=== PATIENT | male | born 1960 | race Caucasian/White ===

== ENCOUNTER 2025-03-15 10:22 | Inpatient (IN) | payer MEDICAID, SELFPAY ==
[2025-03-15] VITALS (10 sets, daily range): BP systolic 105–138; BP diastolic 68–104; PULSE 82–115; RESP 18–23; TEMP 36.1–36.9; O2SAT 93–97; BMI 32.3; BMI 31.9
--- NOTE | 2025-03-15 10:24 | EDNOTE_ITS ---
ED SOB =RME/HPI General Chief Complaint: Shortness of Breath/Dyspnea Stated Complaint: sob Time Seen by Provider: 03/15/25 10:46 Arrival date/time: 03/15/25 10:22 RME / HPI RME / HPI Narrative: 65 y/o male with Hx of CHF presents to ED BIBA c/o shortness of breath and BL lower extremity edema x 2 days. Patient reports shortness of breath when laying down. Patient admits to taking LASIX, but has not taken it this morning. Denies any chest discomfort or pressure. Also denies any prior history of drug use, alcohol or smoking. No other modifying factors reported. No other concerns or complaints expressed at this time. Related Data Previous Rx's ?Medication ?Instructions ?Recorded carvedilol 3.125 mg tablet 3.125 mg PO BIDWM 30 days # 60 tabs 04/02/24 dapagliflozin propanediol 5 mg 5 mg PO QDAY #30 tabs 0 04/02/24 tablet (Farxiga) furosemide 40 mg tablet 40 mg PO QDAY #30 tabs 04/02 Allergies Allergy/AdvReac Type Severity Reaction Status Date / Time No Known Allergies Allergy Verified 03/15/25 10:29 Review of Systems Review of Systems Systems Reviewed: All systems reviewed, normal except as documented Narrative Review of Systems: Constitutional: DENIES; Fevers Eyes: DENIES; Loss of vision Head/Ear/Nose: DENIES; Loss of hearing Throat: DENIES; Dysphagia Cardiovascular: DENIES; Chest pain, dyspnea or syncope Respiratory: POSITIVE; Shortness of breath Gastrointestinal: DENIES; Rectal bleeding or melena. Genitourinary: DENIES; Dysuria (painful or difficult urination) Musculoskeletal: POSITIVE; BL LE edema, DENIES; Arthralgia (pain in a joint),; Skin: DENIES; Rash Neurological: DENIES; Loss of function or movement Psychiatric: DENIES; recent major life stressor, emotional problem, illicit drug use or abuse Endocrinology: DENIES; Weight change Hematologic/Lymphatic: DENIES; Abnormal bruising Allergic/Immunologic: DENIES; Urticaria (hives) Past Medical History Past Medical History CARDIAC: Positive Congestive Heart Failure PSYCHO/SOCIAL: Positive Recreational Drug Use (COCAINE) Social History SUBSTANCE USE: crack/cocaine ED Exam Narrative Physical exam: Physical Exam: General: The vital signs were reviewed. The patient is non-toxic, in no apparent distress and appears healthy with a patent airway, no respiratory distress and has no apparent circulatory problems. Head & Scalp: Normocephalic, atraumatic. Face: Appears normal and is without lesions, deformity. Ears: Left external pinna appears normal. Right external pinna appears normal. Eyes: The sclera is anicteric. No obvious photophobia. The Left and Right Orbit/Lid/Conjunctiva appears normal without swelling, discoloration or injection. Nose: The nose is without deformity, discharge or tenderness; Throat: Appears normal. The mucous membranes are pink and moist without exudates, redness or mass seen. The tongue appears normal. Neck: The neck is supple and no apparent mass or adenopathy. Chest: The chest wall is normal in size and symmetry and has no chest wall tenderness or crepitus. The patient displays normal ventilator effort without retractions, accessory muscle use and has adequate air movement bilaterally with no wheezes and no rales. Cardiovascular: Regular rate and rhythm; No murmurs, rubs, or gallops; Gastrointestinal: The abdomen appears normal. No obvious hernias or mass. The abdomen is soft and benign, non-distended, with no pain, no guarding and no rebound tenderness. Bowel sounds are present and normal sounding. No CVA tenderness. Genitourinary: Back/Spine: Normal spine Extremities/Musculoskeletal/lymphatic: Bilateral feet have redness swelling edema sores absent left second toe the bilateral upper and lower extremities are warm. There is no evidence of arterial insufficiency. There is 4+ pitting edema bilaterally The patient spontaneously moves bilateral upper and lower extremities with no pain and no limitation of movement. There is no apparent, injury or trauma. Skin: The skin is warm, dry and intact. No rashes. No petechia. No purpura. No abnormal bruising. The color is appropriate with no cyanosis. Mental status/Psychiatric: Mental status is appropriate for age. The patient has no apparent delusions, visual hallucinations, no apparent audible hallucinations. The patient has no apparent suicidal thoughts/ideation and no apparent homicidal thoughts/ideation. Neurological: The patient is awake, alert, interactive, cordial, cooperative and is oriented to name and situation. The patient follows commands and answers historical question with no impairment. There is no visual disturbance apparent. The pupils are equal and reactive bilaterally with normal eye movements and no diplopia The bilateral upper and lower extremities have normal strength, normal range of motion and normal functioning. The gait, station and balance were not tested the patient is in the ambulance bay on initial evaluation. Course Quality Measures none Orders Category Date Time Status Bedside COVID-19 Antigen Test NOW Care 03/15/25 15:03 Active COVID-19 Screening Questionnaire NOW Care 03/15/25 15:02 Active EKG (ED ONLY) *Do not use* NOW Care 03/15/25 10:48 Completed EKG (ED Only) Stat Exams 03/15/25 10:48 Draft XR chest 1V portable Stat Exams 03/15/25 10:48 Completed B-Type Natriuretic Peptide Stat Lab 03/15/25 11:37 Completed Blood Culture (Lab) Stat Lab 03/15/25 11:37 Received CBC Stat Lab 03/15/25 11:37 Completed Comprehensive Metabolic Panel Stat Lab 03/15/25 11:37 Completed Drug Screen,Urine Stat Lab 03/15/25 13:28 Completed Lactate (Lactic Acid) Stat Lab 03/15/25 11:37 Completed Lipase Stat Lab 03/15/25 11:37 Completed Magnesium Stat Lab 03/15/25 11:37 Completed Troponin I Stat Lab 03/15/25 11:37 Completed Urinalysis Stat Lab 03/15/25 13:28 Completed Urinalysis, C/S if Indicated Stat Lab 03/15/25 13:28 Completed Urine Culture Stat Lab 03/15/25 13:28 Received Venous Blood Gas Stat Lab 03/15/25 11:37 Completed Furosemide Inj [Lasix Inj] Med 03/15/25 10:47 Discontinued 40 mg IVP X1 ONE cefTRIAXone/D5w 1gm IV premix [Rocephin/D5w 1gm IV Med 03/15/25 14:39 Discontinued premix] 1 gm in 50 ml IV X1 Vital Signs Vital signs: Vital Signs Pulse Rate 97 03/15/25 12:35 Respiratory Rate 19 03/15/25 12:35 Blood Pressure 114/78 03/15/25 12:35 Pulse Oximetry (%) 96 03/15/25 12:35 Oxygen Delivery Method Room Air 03/15/25 12:35 Shortness of Breath / Dyspnea MDM Narrative MDM Narrative:: I, Amara Olvera, am scribing for and in the presence of Dr. Cristóbal Khushigian. Urinalysis came back with 145 white cells. CMP came back with a BNP of 1658 troponin negative transaminases and bilirubin were negative. Lactic acid came back at 0.9. Glucose 123 creatinine 1.1 BUN slightly elevated 26. Electrolytes are within normal limits potassium was 4.1 venous blood gas a pH is 7.51 consistent with a respiratory alkalosis. And his CBC came back 11.2 hemoglobin is 13.5 Patient is a 65-year-old with known congestive heart failure believes he is fluid overloaded and is complaining of shortness of breath and 4+ pitting edema to bilateral legs. Will work him up for congestive heart failure give him some Lasix and reevaluate BNP came back elevated consistent with acute and worsening congestive heart failure. His leg swelling is 4+ worse clinically. He had a chest x-ray shows a left pleural effusion and possible infiltrate or atelectasis on that same side. Again consistent with fluid overload. Patient also has a urinary tract infection with significant pyuria. Because of all these findings the hospitalist was called and they agreed to admit the patient for diuresis and treat the urinary tract infection. He also has bilateral feet that have erythema and and no obvious serious breakdown at this point but this will require some serious diuresis and elevation also. Patient data External records reviewed:: [facility] previous records (Reviewed prior admission record from 03/31/2024 - 04/02/2025. Patient was admitted to ICU for CHF exacerbation.) and EMS form Clinical information provided by:: patient and EMS Social determinants that could affect healthcare access:: substance use (Cocaine) Patient has the following chronic illnesses:: CHF How is presenting disease/condition affected by chronic disease/condition?: exacerbated by Evaluation data The following diagnostics were reviewed and interpreted by me:: lab results, radiology exam(s) and EKG tracing(s) (EKG as interpreted by me shows sinus rhythm of 85 BPM and no STEMI.) Lab and/or radiology exams considered but not ordered:: None Interpretation Summary: See [facility] narrative. Patient: CANDY SHIELDS. Record#: [id number] Birthdate: 1960 Age/Sex: 65 / M Location: [facility] Attending Dr: Ordering Physician: Cristóbal Penaloza MD Date of Service: 03/15/25 Procedure(s): XR chest 1V portable Accession Number(s): [id number] cc: Cristóbal Penaloza MD; Tommie Arthur MD; Sen Martinez MD~ Examination: PA chest single view TECHNIQUE: Upright PA chest single view Exam date and time: March 15, 2025 1054 hours Comparison March 31, 2024 INDICATIONS: Chest pain today. FINDINGS: Pneumonia left base with mild to moderate left pleural fluid Minor prominence left ventricle Moderate vascular congestion Small right pleural effusion IMPRESSION: Pneumonia left base with mild to moderate left pleural fluid Suspicious for mild heart failure Dictated By: Tommie Arthur MD Signed By: <Electronically signed by Tommie Arthur MD in OV> 03/15/25 1110 Medications / Prescriptions Medications or Prescriptions considered but not ordered:: None Medication administrations:: Medication Administration History Acetaminophen (Acetaminophen 325 Mg Tablet) 650 mg PO Q6H PRN PRN Reason: Fever >100.4 or pain Stop: 04/14/25 15:26 Carvedilol (Carvedilol 3.125 Mg Tablet) 3.125 mg PO BIDWM [facility] Stop: 04/14/25 17:29 Last Admin: 03/15/25 17:31 Dose: 3.125 mg Documented By: TREY Dapagliflozin (Dapagliflozin Propanediol 5 Mg Tablet) 10 mg PO QAM [facility] Stop: 04/15/25 08:59 Doxycycline Hyclate (Doxycycline 100 Mg Tablet) 100 mg PO BID [facility] Stop: 03/22/25 20:59 Enoxaparin Sodium (Enoxaparin Sod Inj 40 Mg/0.4 Ml Syringe) 40 mg SC QDAY [facility] Stop: 03/30/25 08:59 Furosemide (Furosemide Inj 10 Mg/Ml 4ml Vial) 40 mg IVP TID [facility] Stop: 04/14/25 21:59 Ceftriaxone Sodium/Dextrose (Rocephin/D5w 1gm Iv Premix) 1 gm in 50 mls @ 100 mls/hr IV QDAY@1400 [facility] Stop: 03/23/25 13:59 Ondansetron HCl (Ondansetron Inj 2 Mg/Ml Inj 2 Ml) 4 mg IV Q6H PRN; Protocol PRN Reason: NAUSEA OR VOMITING Stop: 04/14/25 15:26 Discontinued Medications Furosemide (Furosemide Inj 10 Mg/Ml 4ml Vial) 40 mg IVP X1 ONE Stop: 03/15/25 10:48 Last Admin: 03/15/25 12:50 Dose: 40 mg Documented By: KD Ceftriaxone Sodium/Dextrose (Rocephin/D5w 1gm Iv Premix) 1 gm in 50 mls @ 100 mls/hr IV X1 ONE Stop: 03/15/25 15:08 Last Infusion: 03/15/25 15:36 Dose: Infused Documented By: Admin: 03/15/25 15:06 Dose: 100 mls/hr Documented By: [facility] See above if any. Consultations Consultation(s) initiated? (list below): Yes Consultation #1 (Physician, Specialty, Details): Discussed test HPI, PMHx, lab, radiology results and/or management with hospitalist. Will admit for further evaluation and management. Accepts patient for admission. Time: 15:00 Diagnosis Shortness of Breath Differential Diagnosis: congestive heart failure, community acquired pneumonia, asthma with exacerbation and pulmonary embolism Most likely diagnosis given after review of the tests above:: CONWAY CHF exacerbation Left lower lobe pneumonia Pleural effusion on left Acute UTI Fluid overload Admission Indicated Admission indicated?: indicated Admission Request Was there a request for admission?: Yes Admission Attestation Admission request attestation: Discussed case with [] from Hospitalist service regarding admission. Discussed patients ED course, exam findings, labs, and radiology results. The Hospitalist [agrees,declines] to accept the patient for admission. Disposition Plan Disposition Plan: Admit Discharge Plan Plan Patient Disposition: Admit Acute Care w/in Hospital Disposition Comment: Hospitalist admit Problem List Clinical Impression: CONWAY (dyspnea on exertion), CHF exacerbation, Left lower lobe pneumonia, Pleural effusion on left, Acute UTI, Fluid overload
--- NOTE | 2025-03-15 10:48 | EKG_ITS ---
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: : 1960 Requested By: Cristóbal Penaloza Order Number: [id number] Reading MD: Cristóbal Penaloza Measurements Intervals [place] Rate: 85 P: 16 [place]: 147 QRS: -20 QRSD: 116 T: 71 QT: 390 QTc: 466 Interpretive Statements SINUS RHYTHM MODERATE INTRAVENTRICULAR CONDUCTION DELAY [110+ ms QRS DURATION] VOLTAGE CRITERIA FOR LVH [MEETS CRITERIA IN ONE OF: R(aVL), S(V1), R(V5), R(V5/V6)+S(V1)] MODERATE T-WAVE ABNORMALITY, CONSIDER ANTERIOR ISCHEMIA [-0.1+ mV T-WAVE IN V3/V4] Compared to ECG 11/26/2023 10:42:29 Intraventricular conduction delay now present Left ventricular hypertrophy now present Possible ischemia now present Sinus tachycardia no longer present Ventricular premature complex(es) no longer present T-wave abnormality still present /store/S0/[id number]/ecg/[id number].pdf
--- NOTE | 2025-03-15 10:48 | XR_ITS ---
Examination: PA chest single view TECHNIQUE: Upright PA chest single view Exam date and time: March 15, 2025 1054 hours Comparison March 31, 2024 INDICATIONS: Chest pain today. FINDINGS: Pneumonia left base with mild to moderate left pleural fluid Minor prominence left ventricle Moderate vascular congestion Small right pleural effusion IMPRESSION: Pneumonia left base with mild to moderate left pleural fluid Suspicious for mild heart failure
[2025-03-15 11:47] LABS: Base Excess, Venous 4 (-3-3); O2 Saturation, Venous 84 % (96-97); PCO2, Venous 34 mmHg (36-56); PO2, Venous 48 mmHg (15-58); pH, Venous 7.51 (7.33-7.66)
[2025-03-15 11:48] LABS: Lactate (Lactic Acid) 0.9 mMol/L (0.4-2.0)
[2025-03-15 11:50] LABS: Basophils # (Auto) 0.1 Thou/mm3 (0.0-0.2); Basophils % (Auto) 1 % (0-2.5); Eosinophils # (Auto) 0.3 Thou/mm3 (0.0-0.5); Eosinophils % (Auto) 2 % (0-10); Hematocrit 40.6 % (41.0-53.0); Hemoglobin 13.5 g/dL (13.5-16.0); Immature Granulocytes % (Auto) 0 % (0-0); Immature Granulocytes Auto 0.05 Thou/mm3 (0.00-0.00); Lymphocytes # (Auto) 1.1 Thou/mm3 (1.0-4.8); Lymphocytes % (Auto) 10 % (10-50); Mean Corpuscular HGB Conc 33.3 g/dl (31.0-37.0); Mean Corpuscular Hemoglobin 28.5 pg (25.0-35.0); Mean Corpuscular Volume 86 fL (80-100); Monocytes # (Auto) 0.9 Thou/mm3 (0.0-0.8); Monocytes % (Auto) 8 % (0-12); Neutrophils # (Auto) 8.8 Thou/mm3 (1.8-7.7); Neutrophils % (Auto) 79 % (37-80); Nucleated Red Blood Cell % 0 /100 WBC (0); Platelet Count 173 Thou/mm3 (140-440); RDW Standard Deviation 42.7 fL (35.1-43.9); Red Blood Count 4.74 Miln/mm3 (4.50-5.90); White Blood Count 11.2 Thou/mm3 (3.8-10.6)
[2025-03-15 12:14] LABS: Alanine Aminotransferase 23 U/L (10-49); Albumin, Serum 4.1 gm/dL (3.4-4.8); Albumin/Globulin Ratio 1.4 (1.2-2.2); Alkaline Phosphatase 107 U/L (46-116); Anion Gap 8 (7-16); Aspartate Amino Transferase 30 U/L (0-34); BUN/Creatinine Ratio 24 Ratio (12-20); Bilirubin,Total 1.2 mg/dL (0.3-1.2); Blood Urea Nitrogen 26 mg/dL (9-23); Calcium 9.1 mg/dL (8.3-10.6); Calcium (Corrected) 9.1 mg/dL (8.5-10.1); Carbon Dioxide 27.1 mMol/L (20.0-31.0); Chloride 102 mMol/L (98-107); Creatinine (Component) 1.1 mg/dL (0.6-1.3); Estimated Creatinine Clearance 88.7 mL/min (>60); Glucose 123 mg/dL (74-106); Lipase 30 U/L (12-53); Magnesium 1.9 mg/dL (1.6-2.6); Osmolality,Calculated 279 (275-295); Potassium 4.1 mMol/L (3.4-5.1); Sodium 137 mMol/L (136-145); Total Protein 7.1 gm/dL (5.7-8.2); Troponin I 0.022 ng/mL (0.0-0.045); eGFR > 60 See Note
[2025-03-15 12:15] LABS: B-Type Natriuretic Peptide 1658 pg/mL (0-100)
--- NOTE | 2025-03-15 12:35 | PC.NURSE ---
PT HERE WITH C/O DIFF BREATHING SINCE 0 AND HX HEART FAILURE. PT WITH MULTPLE SCABBED AREAS AND RASH TO BILATERAL LOWER LEGS AND FEET. STATES SWELLING AND RASH ONLY STARTED YESTERDAY.
[2025-03-15] MEDS: FUROSEMIDE INJ 10 MG/ML 4ML VIAL 40 MG IVP ×2 (12:50→21:05)
[2025-03-15 13:33] LABS: Collection Type, Urine Clean Catch
[2025-03-15 13:38] LABS: Bilirubin,Urine Negative (Negative); Blood,Urine Negative (Negative); Clarity,Urine Clear (Clear/Hazy); Color,Urine Lt-Yellow (Lt Yel-Yel); Glucose, Urine Negative (Negative); Ketones,Urine Negative (Negative); Leukocyte Esterase,Urine Positive (Negative); Nitrite,Urine Negative (Negative); Protein,Urine 1+ (Neg - Trace); RBC,Urine 4 /hpf (0-3); Specific Gravity,Urine 1.015 (1.001-1.035); Squamous Epithelial Cell,Urine 1 /hpf (0-5); Urobilinogen,Urine Negative mg/dL (0.0-1.0); WBC,Urine 145 /hpf (0-5)
[2025-03-15 13:39] LABS: Culture Indicated,Urine Yes
[2025-03-15 13:47] LABS: Amphetamine/Methamp Scrn,U Negative (Negative); Barbiturate Screen,Urine Negative (Negative); Benzodiazepines Screen,Urine Negative (Negative); Benzoylecgonine Screen, Ur Negative (Negative); Fentanyl Screen,Urine Negative (Negative); Opiate Screen,Urine Negative (Negative); THC Screen,Urine Negative (Negative)
[2025-03-15] MEDS: cefTRIAXone/D5w 1gm IV premix 1 GM/50 ML BAG IV (15:06)
--- NOTE | 2025-03-15 15:14 | PC.NURSE ---
HOSPITALISTS IN TO TALK WITH PT. PENDING ADMIT
--- NOTE | 2025-03-15 15:30 | ECHO_ITS ---
Transthoracic Echo Report Ht (in): 73 Wt (lb): 245 Exam Location: Echo Lab Status: Emergency Shovel Operator: Erlinda Fajardo Indications: Procedure Performed: BP: 138 / 104 HR: 93 Technical Quality: Technically difficult study MEASUREMENTS (Male / Female) Normal Values 2D ECHO LV Diastolic Diameter PLAX 4.6 cm 4.2 - 5.9 / 3.9 - 5.3 cm LV Systolic Diameter PLAX 3.9 cm IVS Diastolic Thickness 1.4 cm 0.6 - 1.0 / 0.6 - 0.9 cm LVPW Diastolic Thickness 1.3 cm 0.6 - 1.0 / 0.6 - 0.9 cm LV Relative Wall Thickness 0.6 LVOT Diameter 2.3 cm Aortic Root Diameter 3.5 cm LA Systolic Diameter LX 4.2 cm 3.0 - 4.0 / 2.7 - 3.8 cm LA Volume Index 40.5 cm?/m? 16 - 28 cm?/m? DOPPLER AV Peak Velocity 226.0 cm/s AV Peak Gradient 20.4 mmHg AV Mean Gradient 10.5 mmHg AV Velocity Time Integral 44.6 cm LVOT Peak Velocity 64.3 cm/s LVOT Peak Gradient 1.7 mmHg LVOT Velocity Time Integral 12.7 cm LVOT Cardiac Index 2025.4 cm?/min?m? AV Area Cont Eq vti 1.2 cm? AV Area Cont Eq pk 1.2 cm? MV Peak Velocity 129.0 cm/s MV Peak Gradient 6.7 mmHg MV Mean Velocity 87.1 cm/s MV Mean Gradient 3.0 mmHg MV Area PHT 4.4 cm? MR Peak Velocity 343.0 cm/s MR Peak Gradient 47.1 mmHg Mitral E Point Velocity 114.0 cm/s Mitral A Point Velocity 62.1 cm/s Mitral E to A Ratio 1.8 LV E' Lateral Velocity 8.3 cm/s Mitral E to LV E' Lateral Ratio 13.8 LV E' Septal Velocity 6.3 cm/s Mitral E to LV E' Septal Ratio 18.1 TR Peak Velocity 291.5 cm/s TR Peak Gradient 34.0 mmHg PV Peak Velocity 114.0 cm/s PV Peak Gradient 5.2 mmHg FINDINGS Left Ventricle The left ventricular cavity size is moderately increased. There is global left ventricular hypokinesis. Mild LVH. Normal left ventricular diastolic filling pattern for age. The ejection fraction is visually estimated at 25- 30%. Right Ventricle The right ventricular systolic function is normal. The right ventricular size is moderately increased. Left Atrium Moderately increased left atrial volume 40.5 mL/m?. Right Atrium The right atrium is normal by two-dimensional imaging, color flow and Doppler imaging with no structural abnormalities, no thrombus formation present. Atrial Septum The interatrial septum appears normal with no evidence of a shunt. Aorta The aorta is normal by two-dimensinal. Mitral Valve Mild mitral annular calcification. Mild mitral regurgitation. Aortic Valve Moderate thickening of the aortic valve leaflets. Trace aortic valve regurgitation. Mild aortic valve stenosis. Tricuspid Valve There is trace tricuspid valve regurgitation. Pulmonic Valve The pulmonic valve is not well visualized. There is no significant pulmonic valve regurgitation. Vessels The pulmonary artery appears normal. The inferior vena cava pulmonary and hepatic veins appear normal. Pericardium The pericardium is normal by two-dimensional imaging. There is no significant pericardial effusion. CONCLUSIONS Indication: CHF exaerbation - Dialated cardiomyopathy. Dilated LV. Severe systolic dysfunction. Severe global hypokinesis. Estimated EF 20-30% %. Grade 2 diastolic dysfunction. Mild RV dilatation. Mild RV systolic dysufnction. Mild to modertae AV stenosis. Low gradient due to low EF. Mean PG 12-14 mm hg but JE aroind 1.1 to 1.2 sq cm which indicates at least moderate stenosis. Mild MAC. Mild MR. Mild TR. Trace AI. Mildly dilated LA volume 40.5 mL/m?. Ernie Mcclelland (Electronically Signed) Final Date: 16 March 2025 01:19
--- NOTE | 2025-03-15 15:32 | ESHP_ITS ---
<Statement entered by Mitzi Melissa MD - 03/15/25 20:16> 65 y/o M with PMHx significant for HFrEF(20-25%) in 2023 presents with chief complaint of shortness of breath and lower extremity edema for 1 day. Patient states he was in usual state of health until yesterday, when he began experiencing shortness of breath, orthopnea, dyspnea on exertion, and notable swelling of bilateral legs. Patient was admitted for AHRF in a setting of CHF exacerbation, CAP and pleural effusion. -lasix 40 TID -daily weight -strict I&Os -ECHO -optimization GDMT as tolerates -ABX for CAP -O2 support I discussed with and supervised the tax services intern physician who took care of this patient. I personally saw and examined the patient and discussed the assessment and plan with the entire medicine team, including my attending , I agree with the assessment and plan as documented below Mitzi Melissa M.D. PGY-2 Disclaimer: Despite multiple revisions, due to the dictation software being used, the document bellow may not be free of grammatical errors including phonetic/typographic errors. However, this does not deter from our commitment to providing health care in the patient's best interest in mind. Documentation for date of: 03/15/25 HPI History of Present Illness Chief complaint: SOB History of present illness: 65 y/o M with PMHx significant for HFrEF presents with chief complaint of shortness of breath and lower extremity edema for 1 day. Patient states he was in usual state of health until yesterday, when he began experiencing shortness of breath, orthopnea, dyspnea on exertion, and notable swelling of bilateral legs. Patient also endorses a nonproductive cough for past few days. Patient denies fevers, chills, nausea, vomiting, chest pain. ED COURSE: Labs significant for: WBC 11.2, lactic acid 0.9, troponin negative, BNP 1658. UA showing 145 WBCs. Imaging significant for: Chest x-ray showing vascular congestion, left base pneumonia with possible pleural effusion. Patient received ceftriaxone and 40 mg IV Lasix. PMH: CHF PSH: Hernia repair at age 12 SH: 66-abzx-rrit smoking history, quit 30 years ago. Endorses using cocaine over 30 years ago. Denies alcohol use. Allergies:?NKDA Medications: Coreg, Farxiga, Lasix Review of Systems Review of Systems Systems Reviewed: All systems reviewed, normal except as documented Past Medical History Past Medical History Comments PMH COMMENT: PMH: CHF PSH: Hernia repair at age 12 SH: 89-obfp-wxlb smoking history, quit 30 years ago. Endorses using cocaine over 30 years ago. Denies alcohol use. Allergies:?NKDA Medications: Tien, Krisga, Lasix Exam Vital Signs Temp Pulse Resp BP Pulse Ox O2 Del Method 98 F 115 H 18 122/68 96 Room Air 03/15/25 15:20 03/15/25 15:20 03/15/25 15:20 03/15/25 15:20 03/15/25 15:20 03/15/25 15:20 Narrative Exam PE: Gen: Well-developed and well-nourished. HEENT: NCAT, PERRLA, EOMI, MMM, anicteric conjunctivae. CVS: normal S1 and S2. RRR. No M/R/G. Resp: Diminished lung sounds due to poor body habitus. No rales, rhonchi, wheezing. Abd: soft, non-tender, non-distended. MSK: Good ROM in BUE & BLE. 3+ pitting edema bilateral lower extremities up to mid tibia. Bilateral feet/ankles with dry flaking skin, some wounds. Left second toe amputated. Neuro: CN II-XII grossly intact. Strength 5/5 in BUE & BLE. Alert and oriented x3. Psych: appropriate mood and affect. Results: Labs 03/15/25 11:37 03/15/25 11:37 Labs: Short CBC 03/15/25 Range/Units 11:37 WBC 11.2 H (3.8-10.6) Thou/mm3 Hgb 13.5 (13.5-16.0) g/dL Hct 40.6 L (41.0-53.0) % Plt Count 173 (140-440) Thou/mm3 BMP 03/15/25 11:37 Sodium 137 Potassium 4.1 Chloride 102 Carbon Dioxide 27.1 BUN 26 H Creatinine 1.1 Glucose 123 H Calcium 9.1 Cardiac Enzymes 03/15/25 Range/Units 11:37 Troponin I 0.022 (0.0-0.045) ng/mL Liver Function 03/15/25 Range/Units 11:37 Total Bilirubin 1.2 (0.3-1.2) mg/dL AST 30 (0-34) U/L ALT 23 (10-49) U/L Alkaline Phosphatase 107 (46-116) U/L Albumin 4.1 (3.4-4.8) gm/dL Urine 03/15/25 Range/Units 13:28 Urine Color Lt-Yellow (Lt Yel-Yel) Urine Clarity Clear (Clear/Hazy) Urine pH 6.0 (5.0-7.0) Ur Specific [place] 1.015 (1.001-1.035) Urine Protein 1+ A (Neg - Trace) Urine Glucose (UA) Negative (Negative) ABG Interpretation ABG results: 03/15/25 11:37 VBG pH 7.51 VBG pCO2 34 L VBG pO2 48 VBG Base Excess 4 H Quality Measures Quality Measures VTE prophylaxis Medications Home Medications and Allergies Allergies Allergy/AdvReac Type Severity Reaction Status Date / Time No Known Allergies Allergy Verified 03/15/25 10:29 Visit Medications Acetaminophen (Acetaminophen 325 Mg Tablet) 650 mg PO Q6H PRN PRN Reason: Fever >100.4 or pain Stop: 04/14/25 15:26 Carvedilol (Carvedilol 3.125 Mg Tablet) 3.125 mg PO BIDWM [facility] Stop: 04/14/25 17:29 Enoxaparin Sodium (Enoxaparin Sod Inj 40 Mg/0.4 Ml Syringe) 40 mg SC QDAY CHYNA Stop: 03/30/25 08:59 Furosemide (Furosemide Inj 10 Mg/Ml 4ml Vial) 40 mg IVP TID CHYNA Stop: 04/14/25 21:59 Ondansetron HCl (Ondansetron Inj 2 Mg/Ml Inj 2 Ml) 4 mg IV Q6H PRN; Protocol PRN Reason: NAUSEA OR VOMITING Stop: 04/14/25 15:26 Discontinued Medications Furosemide (Furosemide Inj 10 Mg/Ml 4ml Vial) 40 mg IVP X1 ONE Stop: 03/15/25 10:48 Last Admin: 03/15/25 12:50 Dose: 40 mg Ceftriaxone Sodium/Dextrose (Rocephin/D5w 1gm Iv Premix) 1 gm in 50 mls @ 100 mls/hr IV X1 ONE Stop: 03/15/25 15:08 Last Admin: 03/15/25 15:06 Dose: 100 mls/hr Assessment & Plan Plan 65 y/o M with PMHx significant for HFrEF presents with chief complaint of shortness of breath and lower extremity edema for 1 day. Patient states he was in usual state of health until yesterday, when he began experiencing shortness of breath, orthopnea, dyspnea on exertion, and notable swelling of bilateral legs. Patient also endorses a nonproductive cough for past few days. Patient denies fevers, chills, nausea, vomiting, chest pain. #CHF exacerbation #HFrEF, patient history Patient has history of HFrEF, with echo performed March 2024 showing ejection fraction 20-25%. Patient has not follow-up with care trainer. Presented with shortness of breath, orthopnea, bilateral lower extremity edema. Chest x-ray shows vascular congestion. -Lasix 40 mg IV 3 times daily -Strict I's and O's -Daily weights -Echo ordered, pending -Telemetry -Cardiac diet, fluid restriction 1500 cc daily #Community-acquired pneumonia #UTI #Sepsis ruled out Chest x-ray shows left base pneumonia with possible pleural effusion. Patient has elevated WBCs 11.2. Denies fevers or chills. Patient is not septic. Received Rocephin in ED. Urinalysis indicates infection with WBCs 145. Blood and urine cultures drawn. - Rocephin 1 g IV daily (started 03/15) - Doxycycline 100 mg p.o. twice daily (started 03/15) - Blood and urine cultures pending #Bilateral feet wounds Bilateral feet and ankles are dry, flaking, with multiple small wounds. Appears to have crusting growth. Patient states has been ongoing issue for past year. - Wound care DVT prophylaxis: Lovenox GI prophylaxis: None Diet: Cardiac, fluid restrict 1500 cc/day Lines: Peripheral IV Code status: Full code Plan of care discussed with senior resident Dr. Melissa PGY?[address] Taylor. Kike Travis MD PGY?1
[2025-03-15] MEDS: carVEDILOL 3.125 MG TABLET PO (17:31)
--- NOTE | 2025-03-15 18:44 | PC.NURSE ---
report given to akash garcia
[2025-03-15] MEDS: DOXYCYCLINE 100 MG TABLET PO (21:05)
[2025-03-16] VITALS (11 sets, daily range): BP systolic 101–120; BP diastolic 58–80; PULSE 79–102; RESP 14–24; TEMP 36.1–36.7; O2SAT 97–98; BMI 32.1
[2025-03-16 05:43] LABS: Basophils # (Auto) 0.1 Thou/mm3 (0.0-0.2); Basophils % (Auto) 1 % (0-2.5); Eosinophils # (Auto) 0.2 Thou/mm3 (0.0-0.5); Eosinophils % (Auto) 2 % (0-10); Hematocrit 41.4 % (41.0-53.0); Hemoglobin 13.4 g/dL (13.5-16.0); Immature Granulocytes % (Auto) 1 % (0-0); Immature Granulocytes Auto 0.05 Thou/mm3 (0.00-0.00); Lymphocytes # (Auto) 1.5 Thou/mm3 (1.0-4.8); Lymphocytes % (Auto) 15 % (10-50); Mean Corpuscular HGB Conc 32.4 g/dl (31.0-37.0); Mean Corpuscular Hemoglobin 27.9 pg (25.0-35.0); Mean Corpuscular Volume 86 fL (80-100); Monocytes % (Auto) 10 % (0-12); Neutrophils # (Auto) 6.9 Thou/mm3 (1.8-7.7); Neutrophils % (Auto) 71 % (37-80); Nucleated Red Blood Cell % 0 /100 WBC (0); Platelet Count 152 Thou/mm3 (140-440); RDW Standard Deviation 43.4 fL (35.1-43.9); White Blood Count 9.7 Thou/mm3 (3.8-10.6)
[2025-03-16] MEDS: FUROSEMIDE INJ 10 MG/ML 4ML VIAL 40 MG IVP ×3 (05:44→20:16)
[2025-03-16 05:56] LABS: INR 1.2 (0.9-1.3); Partial Thromboplastin Time 28.6 Seconds (22.0-36.0); Prothrombin Time 12.9 Seconds (9.0-12.2)
[2025-03-16 06:03] LABS: Alanine Aminotransferase 23 U/L (10-49); Albumin/Globulin Ratio 1.3 (1.2-2.2); Alkaline Phosphatase 94 U/L (46-116); Anion Gap 7 (7-16); Aspartate Amino Transferase 33 U/L (0-34); BUN/Creatinine Ratio 22 Ratio (12-20); Bilirubin,Total 1.2 mg/dL (0.3-1.2); Blood Urea Nitrogen 26 mg/dL (9-23); Calcium 9.3 mg/dL (8.3-10.6); Calcium (Corrected) 9.3 mg/dL (8.5-10.1); Carbon Dioxide 30.7 mMol/L (20.0-31.0); Chloride 102 mMol/L (98-107); Creatinine (Component) 1.2 mg/dL (0.6-1.3); Estimated Creatinine Clearance 80.9 mL/min (>60); Glucose 101 mg/dL (74-106); Magnesium 1.9 mg/dL (1.6-2.6); Osmolality,Calculated 284 (275-295); Phosphorous 4.7 mg/dL (2.4-5.1); Potassium 3.7 mMol/L (3.4-5.1); Sodium 140 mMol/L (136-145); eGFR > 60 See Note
[2025-03-16] MEDS: ENOXAPARIN SOD INJ 40 MG/0.4 ML SYRINGE SC (08:03)
[2025-03-16] MEDS: DAPAGLIFLOZIN PROPANEDIOL 5 MG TABLET 10 MG PO (08:03)
[2025-03-16] MEDS: carVEDILOL 3.125 MG TABLET PO ×2 (08:04→16:30)
[2025-03-16] MEDS: TAMSULOSIN HCL 0.4 MG CAPSULE PO (08:04)
[2025-03-16] MEDS: AZITHROMYCIN 250 MG TABLET 500 MG PO (10:03)
--- NOTE | 2025-03-16 14:18 | ESPR_ITS ---
<Statement entered by Mitzi Melissa MD - 03/16/25 17:26> Patient is 65 y/o M who was admitted for acute CHF exacerbation No acute overnight events, patient UO~2000 on lasix 4 TID patient is saturating in room air, LE edema significantly subsided Echo: EF of 20-25 %, AV stenosis mild -moderate #CHF exacerbation -diuresis, monitore UO, monitor vitals #HErEF 20-25 % -farxiga and coreg, optimise GDMT as tolerates , currently not a candidate for Entresto, VELMA/ARBs, spironolactone, we will monitor vitals, ween off slowly from lasix, (avoid aggresive diresisi in a setting of moderate ) and if BP in acceptable range we will start Entresto. #PNA -continue rocephin, dxy was canceled, he developed allergy I discussed with and supervised the analysis internship physician who took care of this patient. I personally saw and examined the patient and discussed the assessment and plan with the entire medicine team, including my attending , I agree with the assessment and plan as documented below Mitzi Melissa M.D. PGY-2 Disclaimer: Despite multiple revisions, due to the dictation software being used, the document bellow may not be free of grammatical errors including phonetic/typographic errors. However, this does not deter from our commitment to providing health care in the patient's best interest in mind. Documentation for date of: 03/16/25 Subjective Subjective Interval history: Overnight: Patient experienced dizziness and diaphoresis following dose of doxycycline, further doses stopped. Patient seen examined at bedside, resting comfortably. Patient reports mild symptomatic improvement, still notes nonproductive cough and leg swelling. Denies fevers, chills, nausea, vomiting, shortness of breath. Decrease amount of diuretics. Reminded patient and nurse to keep to strict I&O. Change doxycycline to azithromycin. Exam Vital Signs Temp Pulse Resp BP Pulse Ox O2 Del Method 96.9 F 84 19 119/64 97 Room Air 03/16/25 12:00 03/16/25 12:00 03/16/25 12:00 03/16/25 12:00 03/16/25 12:00 03/16/25 12:00 Narrative Exam PE: Gen: Well-developed and well-nourished. HEENT: NCAT, PERRLA, EOMI, MMM, anicteric conjunctivae. CVS: normal S1 and S2. RRR. No M/R/G. Resp: Diminished lung sounds due to poor body habitus. No rales, rhonchi, wheezing. Abd: soft, non-tender, non-distended. MSK: Good ROM in BUE & BLE. 3+ pitting edema bilateral lower extremities up to mid tibia. Bilateral feet/ankles with dry flaking skin, some wounds. Left second toe amputated. Neuro: CN II-XII grossly intact. Strength 5/5 in BUE & BLE. Alert and oriented x3. Psych: appropriate mood and affect. Objective Labs 03/16/25 04:56 03/16/25 04:56 Labs: Laboratory Results - last 24 hr 03/16/25 04:56 WBC 9.7 RBC 4.80 Hgb 13.4 L Hct 41.4 MCV 86 MCH 27.9 MCHC 32.4 RDW Std Deviation 43.4 Plt Count 152 Neut % (Auto) 71 Lymph % (Auto) 15 [place] % (Auto) 10 Eos % (Auto) 2 Baso % (Auto) 1 Neut # (Auto) 6.9 Lymph # (Auto) 1.5 [place] # (Auto) 1.0 H Eos # (Auto) 0.2 Baso # (Auto) 0.1 Immature Gran # (Auto) 0.05 H Absolute Nucleated RBC 0.00 Immature Gran % 1 H Nucleated RBC % 0 PT 12.9 H INR 1.2 APTT 28.6 Sodium 140 Potassium 3.7 Chloride 102 Carbon Dioxide 30.7 Anion Gap 7 BUN 26 H Creatinine 1.2 Estim Creat Clear Calc 80.9 eGFR > 60 BUN/Creatinine Ratio 22 H Glucose 101 Calculated Osmolality 284 Calcium 9.3 Corrected Calcium 9.3 Phosphorus 4.7 Magnesium 1.9 Total Bilirubin 1.2 AST 33 ALT 23 Alkaline Phosphatase 94 Total Protein 7.0 Albumin 4.0 Globulin 3.0 Albumin/Globulin Ratio 1.3 ABG Interpretation ABG results: 03/15/25 11:37 VBG pH 7.51 VBG pCO2 34 L VBG pO2 48 VBG Base Excess 4 H Quality Measures Quality Measures VTE prophylaxis Assessment & Plan Assessment Current Active Medications: Generic Name Dose Route Start Last Admin Trade Name Freq PRN Reason Stop Dose Admin Acetaminophen 650 mg 04/15/25 15:27 Acetaminophen 325 Mg Tablet PO 04/14/25 15:26 Q6H PRN Fever >100.4 or pain Azithromycin 500 mg 03/16/25 09:45 03/16/25 10:03 Azithromycin 250 Mg Tablet PO 03/23/25 09:44 500 mg QDAY CHYNA Administration Carvedilol 3.125 mg 03/15/25 17:30 03/16/25 08:04 Carvedilol 3.125 Mg Tablet PO 04/14/25 17:29 3.125 mg BIDWM CHYNA Administration Dapagliflozin 10 mg 03/16/25 09:00 03/16/25 08:03 Dapagliflozin Propanediol 5 Mg Tablet PO 04/15/25 08:59 10 mg QAM CHYNA Administration Enoxaparin Sodium 40 mg 03/16/25 09:00 03/16/25 08:03 Enoxaparin Sod Inj 40 Mg/0.4 Ml Syringe SC 03/30/25 08:59 40 mg QDAY CHYNA Administration Furosemide 40 mg 03/15/25 22:00 03/16/25 05:44 Furosemide Inj 10 Mg/Ml 4ml Vial IVP 04/14/25 21:59 40 mg TID CHYNA Administration Ceftriaxone Sodium/Dextrose 1 gm in 50 mls @ 100 mls/hr 03/16/25 14:00 Rocephin/D5w 1gm Iv Premix IV 03/23/25 13:59 QDAY@1400 CHYNA Ondansetron HCl 4 mg 03/15/25 15:27 Ondansetron Inj 2 Mg/Ml Inj 2 Ml IV 04/14/25 15:26 Q6H PRN NAUSEA OR VOMITING Protocol Tamsulosin HCl 0.4 mg 03/16/25 09:00 03/16/25 08:04 Tamsulosin Hcl 0.4 Mg Capsule PO 04/15/25 08:59 0.4 mg QDAY CHYNA Administration Plan 65 y/o M with PMHx significant for HFrEF presents with chief complaint of shortness of breath and lower extremity edema for 1 day. Patient states he was in usual state of health until yesterday, when he began experiencing shortness of breath, orthopnea, dyspnea on exertion, and notable swelling of bilateral legs. Patient also endorses a nonproductive cough for past few days. Patient denies fevers, chills, nausea, vomiting, chest pain. #CHF exacerbation #HFrEF, patient history Patient has history of HFrEF, with echo performed March 2024 showing ejection fraction 20-25%. Patient has not follow-up with tooler. Presented with shortness of breath, orthopnea, bilateral lower extremity edema. Chest x-ray shows vascular congestion. Echo showed dilated left ventricle with severe global hypokinesis, 20 to 30% ejection fraction. Diastolic dysfunction. -Lasix 40 mg IV twice daily -Strict I's and O's -Daily weights -Telemetry -Cardiac diet, fluid restriction 1500 cc daily - Net -2.5 L (03/16) - Patient's blood pressure soft, holding on GDMT at this time, we will initiate before discharge. - [place] [facility] [place] [facility] #Community-acquired pneumonia #UTI #Sepsis ruled out Chest x-ray shows left base pneumonia with possible pleural effusion. Patient has elevated WBCs 11.2. Denies fevers or chills. Patient is not septic. Received Rocephin in ED. Urinalysis indicates infection with WBCs 145. Blood and urine cultures drawn. - Rocephin 1 g IV daily (started 03/15) - Doxycycline 100 mg p.o. twice daily (started 03/15) - Blood and urine cultures pending #Bilateral feet wounds Bilateral feet and ankles are dry, flaking, with multiple small wounds. Appears to have crusting growth. Patient states has been ongoing issue for past year. - Wound care DVT prophylaxis: Lovenox GI prophylaxis: None Diet: Cardiac, fluid restrict 1500 cc/day Lines: Peripheral IV Code status: Full code Plan of care discussed with senior resident Dr. Melissa PGY?[address] Taylor. Kike Travis MD PGY?1
[2025-03-16] MEDS: cefTRIAXone/D5w 1gm IV premix 1 GM/50 ML BAG IV (14:55)
--- NOTE | 2025-03-16 15:18 | PC.SS ---
rounding note: Cardiology rec's. Patient is fluid overload
[2025-03-16] MEDS: MULTIVITAMINS TABLET 1 TAB PO (16:22)
[2025-03-16] MEDS: ZINC SULFATE 220 MG CAPSULE PO (16:22)
[2025-03-16] MEDS: ASCORBIC ACID 250 MG TABLET 500 MG PO (20:16)
[2025-03-17] VITALS (11 sets, daily range): BP systolic 100–126; BP diastolic 57–81; PULSE 77–98; RESP 14–20; TEMP 35.8–36.2; O2SAT 96–98
[2025-03-17 05:47] LABS: Basophils # (Auto) 0.1 Thou/mm3 (0.0-0.2); Basophils % (Auto) 1 % (0-2.5); Eosinophils # (Auto) 0.3 Thou/mm3 (0.0-0.5); Eosinophils % (Auto) 4 % (0-10); Hematocrit 42.9 % (41.0-53.0); Hemoglobin 13.9 g/dL (13.5-16.0); Immature Granulocytes % (Auto) 0 % (0-0); Immature Granulocytes Auto 0.04 Thou/mm3 (0.00-0.00); Lymphocytes # (Auto) 1.7 Thou/mm3 (1.0-4.8); Lymphocytes % (Auto) 18 % (10-50); Mean Corpuscular HGB Conc 32.4 g/dl (31.0-37.0); Mean Corpuscular Hemoglobin 27.9 pg (25.0-35.0); Mean Corpuscular Volume 86 fL (80-100); Monocytes # (Auto) 1.1 Thou/mm3 (0.0-0.8); Monocytes % (Auto) 11 % (0-12); Neutrophils # (Auto) 6.2 Thou/mm3 (1.8-7.7); Neutrophils % (Auto) 66 % (37-80); Nucleated Red Blood Cell % 0 /100 WBC (0); Platelet Count 182 Thou/mm3 (140-440); RDW Standard Deviation 42.3 fL (35.1-43.9); Red Blood Count 4.98 Miln/mm3 (4.50-5.90); White Blood Count 9.3 Thou/mm3 (3.8-10.6)
[2025-03-17 06:10] LABS: Alanine Aminotransferase 26 U/L (10-49); Albumin/Globulin Ratio 1.3 (1.2-2.2); Alkaline Phosphatase 89 U/L (46-116); Anion Gap 11 (7-16); Aspartate Amino Transferase 39 U/L (0-34); BUN/Creatinine Ratio 25 Ratio (12-20); Bilirubin,Total 1.2 mg/dL (0.3-1.2); Blood Urea Nitrogen 30 mg/dL (9-23); Calcium 9.1 mg/dL (8.3-10.6); Calcium (Corrected) 9.1 mg/dL (8.5-10.1); Carbon Dioxide 30.4 mMol/L (20.0-31.0); Chloride 100 mMol/L (98-107); Creatinine (Component) 1.2 mg/dL (0.6-1.3); Estimated Creatinine Clearance 79.6 mL/min (>60); Globulin 3.2 gm/dL (2.3-3.5); Glucose 92 mg/dL (74-106); Osmolality,Calculated 287 (275-295); Phosphorous 4.7 mg/dL (2.4-5.1); Potassium 3.4 mMol/L (3.4-5.1); Sodium 141 mMol/L (136-145); Total Protein 7.2 gm/dL (5.7-8.2); eGFR > 60 See Note
[2025-03-17] MEDS: AZITHROMYCIN 250 MG TABLET 500 MG PO (08:37)
[2025-03-17] MEDS: ASCORBIC ACID 250 MG TABLET 500 MG PO ×2 (08:38→20:33)
[2025-03-17] MEDS: TAMSULOSIN HCL 0.4 MG CAPSULE PO (08:38)
[2025-03-17] MEDS: ZINC SULFATE 220 MG CAPSULE PO (08:38)
[2025-03-17] MEDS: DAPAGLIFLOZIN PROPANEDIOL 5 MG TABLET 10 MG PO (08:38)
[2025-03-17] MEDS: MULTIVITAMINS TABLET 1 TAB PO (08:39)
[2025-03-17] MEDS: ENOXAPARIN SOD INJ 40 MG/0.4 ML SYRINGE SC (08:39)
[2025-03-17] MEDS: carVEDILOL 3.125 MG TABLET PO (08:39)
[2025-03-17] MEDS: FUROSEMIDE INJ 10 MG/ML 4ML VIAL 40 MG IVP (08:40)
--- NOTE | 2025-03-17 09:27 | XR_ITS ---
Examination: PA lateral chest 2 views TECHNIQUE: Upright PA lateral chest 2 views Exam date and time: March 17, 2025 1135 hours Comparison March 15, 2025 INDICATIONS: Difficulty breathing this week. FINDINGS: Pneumonia versus atelectasis left base Small left pleural effusion Mild prominence left ventricle IMPRESSION: Small left pleural effusion
--- NOTE | 2025-03-17 11:14 | PC.SS ---
SS met with patient who is alert/oriented. Patient was able to verify demographics. Patient admitted for CHF. Patient states he lives alone. Patient states his brother, Mook, is the alt medical decision maker for him. Patient is independent with ADL's. Patient is receiving Social Security income and FS. Patient has no DME. He has his own transportation and drives. [facility] in [place]. PCP: [facility] in [place]. Last appt. was in January. Patient's friend, Laverne, resides next door assists with transportation needs as well. Laverne will be the person to notify for transportation to be picked up upon discharge. Alt medical decision maker: Mook Valladares, d/c plan: home friend to provide discharge transportation; Laverne @ [phone]
[2025-03-17] MEDS: cefTRIAXone/D5w 1gm IV premix 1 GM/50 ML BAG IV (13:50)
--- NOTE | 2025-03-17 14:24 | PD.RESPRO ---
Documentation for date of: 03/17/25 Subjective Subjective Interval history: No overnight events. Patient seen and examined at bedside, resting comfortably. Patient endorses subjective worsening of symptoms, feels generalized malaise, tiredness, anxiety. Patient does report mild pain of the base of his feet bilaterally. Will continue to monitor for 1 more day. Patient is confirmed net -2.8 L for length of stay. Started patient on losartan for GDMT. Likely DC tomorrow. Exam Vital Signs Temp Pulse Resp BP Pulse Ox O2 Del Method 97.1 F 87 16 122/65 97 Room Air 03/17/25 11:36 03/17/25 11:36 03/17/25 11:36 03/17/25 11:36 03/17/25 11:36 03/17/25 04:00 Narrative Exam PE: Gen: Well-developed and well-nourished. HEENT: NCAT, PERRLA, EOMI, MMM, anicteric conjunctivae. CVS: normal S1 and S2. RRR. No M/R/G. Resp: Diminished lung sounds due to poor body habitus. No rales, rhonchi, wheezing. Abd: soft, non-tender, non-distended. MSK: Good ROM in BUE & BLE. 3+ pitting edema bilateral lower extremities up to mid tibia, improved. Bilateral feet/ankles with dry flaking skin, some wounds, improved. Left second toe amputated. Neuro: CN II-XII grossly intact. Strength 5/5 in BUE & BLE. Alert and oriented x3. Psych: appropriate mood and affect. Objective Labs 03/17/25 05:14 03/17/25 05:14 Labs: Laboratory Results - last 24 hr 03/17/25 05:14 WBC 9.3 RBC 4.98 Hgb 13.9 Hct 42.9 MCV 86 MCH 27.9 MCHC 32.4 RDW Std Deviation 42.3 Plt Count 182 D Neut % (Auto) 66 Lymph % (Auto) 18 [place] % (Auto) 11 Eos % (Auto) 4 Baso % (Auto) 1 Neut # (Auto) 6.2 Lymph # (Auto) 1.7 [place] # (Auto) 1.1 H Eos # (Auto) 0.3 Baso # (Auto) 0.1 Immature Gran # (Auto) 0.04 H Absolute Nucleated RBC 0.00 Immature Gran % 0 Nucleated RBC % 0 Sodium 141 Potassium 3.4 Chloride 100 Carbon Dioxide 30.4 Anion Gap 11 BUN 30 H Creatinine 1.2 Estim Creat Clear Calc 79.6 eGFR > 60 BUN/Creatinine Ratio 25 H Glucose 92 Calculated Osmolality 287 Calcium 9.1 Corrected Calcium 9.1 Phosphorus 4.7 Magnesium 2.0 Total Bilirubin 1.2 AST 39 H ALT 26 Alkaline Phosphatase 89 Total Protein 7.2 Albumin 4.0 Globulin 3.2 Albumin/Globulin Ratio 1.3 ABG Interpretation ABG results: 03/15/25 11:37 VBG pH 7.51 VBG pCO2 34 L VBG pO2 48 VBG Base Excess 4 H Quality Measures Quality Measures VTE prophylaxis Assessment & Plan Assessment Current Active Medications: Generic Name Dose Route Start Last Admin Trade Name Freq PRN Reason Stop Dose Admin Acetaminophen 650 mg 03/15/25 15:27 Acetaminophen 325 Mg Tablet PO 04/14/25 15:26 Q6H PRN Fever >100.4 or pain Ascorbic Acid 500 mg 03/16/25 21:00 03/17/25 08:38 Ascorbic Acid 250 Mg Tablet PO 04/15/25 20:59 500 mg BID CHYNA Administration Azithromycin 500 mg 03/16/25 09:45 03/17/25 08:37 Azithromycin 250 Mg Tablet PO 03/23/25 09:44 500 mg QDAY CHYNA Administration Carvedilol 3.125 mg 03/15/25 17:30 03/17/25 08:39 Carvedilol 3.125 Mg Tablet PO 04/14/25 17:29 3.125 mg BIDWM CHYNA Administration Dapagliflozin 10 mg 03/16/25 09:00 03/17/25 08:38 Dapagliflozin Propanediol 5 Mg Tablet PO 04/15/25 08:59 10 mg QAM CHYNA Administration Enoxaparin Sodium 40 mg 03/16/25 09:00 03/17/25 08:39 Enoxaparin Sod Inj 40 Mg/0.4 Ml Syringe SC 03/30/25 08:59 40 mg QDAY CHYNA Administration Furosemide 40 mg 03/16/25 21:00 03/17/25 08:40 Furosemide Inj 10 Mg/Ml 4ml Vial IVP 04/15/25 20:59 40 mg BID CHYNA Administration Ceftriaxone Sodium/Dextrose 1 gm in 50 mls @ 100 mls/hr 03/16/25 14:00 03/17/25 13:50 Rocephin/D5w 1gm Iv Premix IV 03/23/25 13:59 100 mls/hr QDAY@1400 CHYNA Administration Losartan Potassium 25 mg 03/17/25 09:00 03/17/25 08:50 Losartan Potassium 25 Mg Tablet PO 04/16/25 08:59 Not Given QDAY CHYNA Multivitamins 1 tab 03/16/25 16:15 03/17/25 08:39 Multivitamins Tablet PO 04/15/25 16:14 1 tab QDAY CHYNA Administration Ondansetron HCl 4 mg 03/15/25 15:27 Ondansetron Inj 2 Mg/Ml Inj 2 Ml IV 04/14/25 15:26 Q6H PRN NAUSEA OR VOMITING Protocol Tamsulosin HCl 0.4 mg 03/16/25 09:00 03/17/25 08:38 Tamsulosin Hcl 0.4 Mg Capsule PO 04/15/25 08:59 0.4 mg QDAY CHYNA Administration Zinc Sulfate 220 mg 03/16/25 16:15 03/17/25 08:38 Zinc Sulfate 220 Mg Capsule PO 03/30/25 16:14 220 mg QDAY CHYNA Administration Plan 65 y/o M with PMHx significant for HFrEF presents with chief complaint of shortness of breath and lower extremity edema for 1 day. Patient states he was in usual state of health until yesterday, when he began experiencing shortness of breath, orthopnea, dyspnea on exertion, and notable swelling of bilateral legs. Patient also endorses a nonproductive cough for past few days. Patient denies fevers, chills, nausea, vomiting, chest pain. #CHF exacerbation, improved #HFrEF, patient history Patient has history of HFrEF, with echo performed March 2024 showing ejection fraction 20-25%. 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 Presented with shortness of breath, orthopnea, bilateral lower extremity edema. Chest x-ray shows vascular congestion. Echo showed dilated left ventricle with severe global hypokinesis, 20 to 30% ejection fraction. Diastolic dysfunction. Patient has shown clinical improvement, reduced bilateral edema. Patient complains of subjective symptoms, however remained saturating well with clear lungs, repeat chest x-ray shows improvement. -Lasix 40 mg IV daily -Strict I's and O's -Daily weights -Telemetry -Cardiac diet, fluid restriction 1500 cc daily - Net -2.9 L (03/17) - Resume patient's home [facility] - Losartan 25mg PO daily #Community-acquired pneumonia #UTI #Sepsis ruled out Chest x-ray shows left base pneumonia with possible pleural effusion. Patient has elevated WBCs 11.2. Denies fevers or chills. Patient is not septic. Received Rocephin in ED. Urinalysis indicates infection with WBCs 145. Blood and urine cultures drawn. Urine culture negative, blood culture negative x 48 hours. - Rocephin 1 g IV daily (started 03/15) - Azithromycin 500 mg p.o. daily (started 03/15) #Bilateral feet wounds Bilateral feet and ankles are dry, flaking, with multiple small wounds. Appears to have crusting growth. Patient states has been ongoing issue for past year. - Wound care - Vitamin C, zinc sulfate, multivitamin supplements DVT prophylaxis: Lovenox GI prophylaxis: None Diet: Cardiac, fluid restrict 1500 cc/day Lines: Peripheral IV Code status: Full code Plan of care discussed with attending Dr. Taylor. Kike Travis MD PGY?1
[2025-03-17] MEDS: DOCUSATE SOD 100 MG CAPSULE PO (20:40)
[2025-03-18] VITALS: BP 120/72; PULSE 88; PULSE 93; RESP 18; TEMP 36; O2SAT 95
[2025-03-18 04:00] VITALS: BP 123/74; PULSE 85; PULSE 86; RESP 17; TEMP 36.1; O2SAT 96
[2025-03-18 06:00] VITALS: BMI 30.9
[2025-03-18 06:04] LABS: Basophils # (Auto) 0.1 Thou/mm3 (0.0-0.2); Basophils % (Auto) 1 % (0-2.5); Eosinophils # (Auto) 0.4 Thou/mm3 (0.0-0.5); Eosinophils % (Auto) 4 % (0-10); Hematocrit 43.9 % (41.0-53.0); Hemoglobin 14.3 g/dL (13.5-16.0); Immature Granulocytes % (Auto) 0 % (0-0); Immature Granulocytes Auto 0.04 Thou/mm3 (0.00-0.00); Lymphocytes # (Auto) 1.5 Thou/mm3 (1.0-4.8); Lymphocytes % (Auto) 16 % (10-50); Mean Corpuscular HGB Conc 32.6 g/dl (31.0-37.0); Mean Corpuscular Hemoglobin 28.4 pg (25.0-35.0); Mean Corpuscular Volume 87 fL (80-100); Monocytes # (Auto) 0.9 Thou/mm3 (0.0-0.8); Monocytes % (Auto) 9 % (0-12); Neutrophils # (Auto) 6.5 Thou/mm3 (1.8-7.7); Neutrophils % (Auto) 69 % (37-80); Nucleated Red Blood Cell % 0 /100 WBC (0); Platelet Count 189 Thou/mm3 (140-440); RDW Standard Deviation 42.6 fL (35.1-43.9); Red Blood Count 5.03 Miln/mm3 (4.50-5.90); White Blood Count 9.4 Thou/mm3 (3.8-10.6)
[2025-03-18 06:28] LABS: Alanine Aminotransferase 27 U/L (10-49); Albumin, Serum 4.1 gm/dL (3.4-4.8); Albumin/Globulin Ratio 1.3 (1.2-2.2); Alkaline Phosphatase 92 U/L (46-116); Anion Gap 7 (7-16); Aspartate Amino Transferase 39 U/L (0-34); BUN/Creatinine Ratio 25 Ratio (12-20); Blood Urea Nitrogen 30 mg/dL (9-23); Calcium 9.4 mg/dL (8.3-10.6); Calcium (Corrected) 9.4 mg/dL (8.5-10.1); Carbon Dioxide 33.3 mMol/L (20.0-31.0); Chloride 100 mMol/L (98-107); Creatinine (Component) 1.2 mg/dL (0.6-1.3); Estimated Creatinine Clearance 78.1 mL/min (>60); Globulin 3.2 gm/dL (2.3-3.5); Glucose 105 mg/dL (74-106); Magnesium 2.4 mg/dL (1.6-2.6); Osmolality,Calculated 285 (275-295); Phosphorous 4.3 mg/dL (2.4-5.1); Sodium 140 mMol/L (136-145); Total Protein 7.3 gm/dL (5.7-8.2); eGFR > 60 See Note
[2025-03-18 07:14] VITALS: BP 103/76; PULSE 85; RESP 16; TEMP 36.1; O2SAT 95
[2025-03-18 08:00] VITALS: PULSE 91
[2025-03-18] MEDS: ENOXAPARIN SOD INJ 40 MG/0.4 ML SYRINGE SC (08:24)
[2025-03-18] MEDS: MULTIVITAMINS TABLET 1 TAB PO (08:25)
[2025-03-18] MEDS: ASCORBIC ACID 250 MG TABLET 500 MG PO (08:25)
[2025-03-18] MEDS: AZITHROMYCIN 250 MG TABLET 500 MG PO (08:25)
[2025-03-18] MEDS: ZINC SULFATE 220 MG CAPSULE PO (08:25)
[2025-03-18] MEDS: DAPAGLIFLOZIN PROPANEDIOL 5 MG TABLET 10 MG PO (08:26)
[2025-03-18] MEDS: TAMSULOSIN HCL 0.4 MG CAPSULE PO (08:26)
--- NOTE | 2025-03-18 09:14 | PC.SS ---
Follow up note: Patient to d/c home today. No PT evaluation. Patient resides alone. Patient would benefit from home health services.
[2025-03-18 12:00] VITALS: BP 133/70; PULSE 91; PULSE 93; RESP 17; TEMP 35.9; O2SAT 94
--- NOTE | 2025-03-18 13:27 | ESDS_ITS ---
<Statement entered by Mitzi Melissa MD - 03/18/25 16:02> 65-year-old male with a past medical history significant for HFrEF (EF 20?25%) presented with shortness of breath and bilateral lower extremity edema. He was admitted for acute hypoxic respiratory failure secondary to CHF exacerbation, along with community-acquired pneumonia and a mild pleural effusion. Initiated on IV diuresis with good response; patient had significant urine output and improvement in respiratory symptoms. Echocardiogram revealed:Severely dilated left ventricleSevere global hypokinesis.EF 20?30%.Diastolic dysfunction Mild to moderate aortic stenosis Community-acquired pneumonia was treated with IV antibiotics; clinical response was favorable and cultures remained negative. GDMT initiated and titrated: Blood pressure remained soft, limiting further titration at this time. Continued Coreg Started losartan at low dose (25 mg daily) Farxiga increased from 5 mg to 10 mg Patient is not yet fully optimized on GDMT, but received clear discharge instructions to follow up closely with cardiology for medication optimization and consideration of ICD placement if EF remains low. Discharge Plan: #CHF Exacerbation / Acute Hypoxic Respiratory Failure ? Resolved Continue GDMT: losartan 25 mg daily, Coreg, Farxiga 10 mg daily.Cardiology follow-up:For GDMT optimization repeat echocardiogram in 2?3 months ICD evaluation if EF persists <35% #Community-Acquired Pneumonia Transition to oral antibiotics to complete full course Return to ED for any worsening symptoms (dyspnea, fever, productive cough) Patient clinically improved, ambulating, and stable for discharge. All questions and concerns were addressed. Patient verbalized full understanding of discharge instructions and follow-up plan. I discussed with and supervised the summer intern physician who took care of this patient. I personally saw and examined the patient and discussed the assessment and plan with the entire medicine team, including my attending , I agree with the assessment and plan as documented below Mitzi Melissa M.D. PGY-2 Disclaimer: Despite multiple revisions, due to the dictation software being used, the document bellow may not be free of grammatical errors including phonetic/typographic errors. However, this does not deter from our commitment to providing health care in the patient's best interest in mind. Planned Discharge Date 03/18/25 DS: Providers Provider Date of admission: 03/15/25 15:27 Primary care physician: Physician No Primary/Family Admitting Provider: Leila Taylor MD Attending Provider on Admission: Leila Taylor MD Consults: 03/16/25 01:33 Referral Wound Care Urgent Comment: new admit, BLE rash, wounds, ect 03/16/25 01:35 Referral Registered Dietitian Urgent Comment: new admit, BLE rash, wounds, ect 03/18/25 11:32 Referral OP Wound Healing Dept Routine Comment: Instructions: BLE venous stasis Attending Provider on DC: Leila Taylor MD Discharging Provider: Kike Travis MD DS: Diagnosis Problem List Completed Was Problem List Reviewed/Reconciled?: Yes Hospital Course Hospital Course Hospital course: 65 y/o M with PMHx significant for HFrEF presents with chief complaint of shortness of breath and lower extremity edema, admitted for CHF exacerbation. Patient received IV diuresis with IV Lasix, wound care for bilateral foot pop likely secondary to edema due to chronic CHF. Patient has moved closer to [facility] with losartan, recommend to follow-up outpatient with cardiology. Patient showed significant improvement in symptoms during course of stay. Patient medically stable and cleared for discharge. Discharge plan: You have been started on the following medications: - Losartan 25 mg daily - Augmentin 1 tab daily for 4 days Your Farxiga has been increased from 5 mg to 10 mg daily Please continue taking all other medications as previously prescribed. Please follow-up with your primary doctor within 1-2 weeks. Please seek referral to wool presser for further management injury. Please return to the ED if you develop new or worsening symptoms. Follow up at [facility] for care of dry flaky skin to legs and feet. --Shower daily and apply thick moisturizing cream such as Eucerin or Aquafor daily than apply cotton socks. Avoid picking at skin and walking barefoot. Diagnoses: #CHF exacerbation, improved #HFrEF, patient history #Community-acquired pneumonia #UTI #Sepsis ruled out #Bilateral feet wounds Plan of care discussed with senior resident Dr. Melissa PGY?[address] Taylor. Kike Travis MD PGY?1 Status at Discharge Overall status at discharge: patient is progressing back to baseline Time Spent with Patient Time attestation: Total time spent providing and/or coordinating discharge services: Time spent: Greater than 30 minutes Exam Vital Signs Temp Pulse Resp BP Pulse Ox O2 Del Method 97.0 F 91 16 103/76 95 Room Air 03/18/25 07:14 03/18/25 08:00 03/18/25 07:14 03/18/25 07:14 03/18/25 07:14 03/18/25 04:00 Narrative Exam PE: Gen: Well-developed and well-nourished. HEENT: NCAT, PERRLA, EOMI, MMM, anicteric conjunctivae. CVS: normal S1 and S2. RRR. No M/R/G. Resp: Diminished lung sounds due to poor body habitus. No rales, rhonchi, wheezing. Abd: soft, non-tender, non-distended. MSK: Good ROM in BUE & BLE. 1+ pitting edema bilateral lower extremities up to mid tibia, improved. Bilateral feet/ankles with dry flaking skin, some wounds, improved. Left second toe amputated. Neuro: CN II-XII grossly intact. Strength 5/5 in BUE & BLE. Alert and oriented x3. Psych: appropriate mood and affect. Discharge Plan Plan Patient Disposition: HOME (Self Care) Patient condition on transfer: Stable Care Plan Goals: You have been started on the following medications: - Losartan 25 mg daily - Augmentin 1 tab daily for 4 days Your Farxiga has been increased from 5 mg to 10 mg daily Please continue taking all other medications as previously prescribed. Please follow-up with your primary doctor within 1-2 weeks. Please seek referral to wool presser for further management injury. Please return to the ED if you develop new or worsening symptoms. Follow up at [facility] for care of dry flaky skin to legs and feet. --Shower daily and apply thick moisturizing cream such as Eucerin or Aquafor daily than apply cotton socks. Avoid picking at skin and walking barefoot. Prescriptions/Referrals Prescriptions/Med Rec: New dapagliflozin propanediol [Farxiga] 10 mg tablet 10 mg PO QDAY 30 Days Qty: 30 0RF losartan 25 mg tablet 25 mg PO QDAY 30 Days Qty: 30 0RF amoxicillin-pot clavulanate 875-125 mg tablet 1 tab PO BID 4 Days Qty: 8 0RF Continued furosemide 40 mg tablet 40 mg PO QDAY Qty: 30 3RF carvedilol 3.125 mg Tablet 3.125 mg PO BIDWM 30 Days Qty: 60 3RF tamsulosin 0.4 mg capsule 0.4 mg PO DAILY Patient Comments: take 1 capsule by mouth once daily cholecalciferol (vitamin D3) 50 mcg (2,000 unit) tablet 50 mcg PO DAILY Patient Comments: take 1 tablet by mouth once daily docusate sodium 100 mg capsule 100 mg PO BID Patient Comments: take 1 capsule by mouth twice a day if needed for constipation Discontinued dapagliflozin propanediol [Farxiga] 5 mg tablet 5 mg PO QDAY Qty: 30 0RF Referrals: No Primary/Family,Physician [Primary Care Provider] - Patient/Caregiver Discharge Instructions Education Materials: Heart Failure Meds, Heart Failure Signs of Flare-Up, Heart Failure: Being Active, Heart Failure: Evaluating Your Heart, Heart Failure Dc, Heart Failure Print Language: German Stand Alone Forms: Nidia Award Info., Patient Portal Info Letter Discharge Order Discharge Orders: Discharge (Routine); Ordered 03/18/25 Ordered By: Kike Travis Quality Discharge Quality Measures VTE prophylaxis
[2025-03-18] MEDS: cefTRIAXone/D5w 1gm IV premix 1 GM/50 ML BAG IV (13:47)
== END 2025-03-18 14:47 | disposition home or self-care (01) | DRG 194 ==
LOC: SERX 14:45 → SERHOLD 15:42 → S2NX 19:08
PROVIDERS: Admitting Provider Internal Medicine; Emergency Provider Emergency Medicine; Visit Provider Internal Medicine
DX: I50.23 Acute on chronic systolic (congestive) heart failure (principal); N39.0 Urinary tract infection, site not specified; J18.9 Pneumonia, unspecified organism; S91.301A Unspecified open wound, right foot, initial encounter; S91.302A Unspecified open wound, left foot, initial encounter
CPT/HCPCS: 36415; 71045; 71046; 80053; 80307; 81001; 82803; 83605; 83690; 83735; 83880; 84100; 84484; 85025; 85610; 85730; 87040; 87081; 87086; 87811; 93005; 93306; 96365; 96375; 99285; J0696; J1650; J1938; J8499; A9270

== ENCOUNTER 2025-03-18 22:48 | Emergency (ER) | payer MEDICAID, SELFPAY ==
[2025-03-18 22:48] VITALS: BMI 32.7
[2025-03-18 23:59] VITALS: BP 106/69; PULSE 92; RESP 18; TEMP 36.9; O2SAT 96
--- NOTE | 2025-03-19 00:13 | PD.EDLOWEX ---
Lower Extremity Injury RME/HPI General Chief Complaint: Extremity Injury, Lower Stated Complaint: LEFT FOOT SWOLLEN Time Seen by Provider: 03/18/25 23:26 Arrival date/time: 03/18/25 22:48 RME / HPI RME / HPI Narrative: This section includes all my notes and documentations, including HPI, PE, and ED course. Renato Corea MD HPI: 65yo male with a history of CHF presents to the ED for a chief complaint of bilateral feet swelling. Patient states he was just discharged from the hospital today (few hours ago) after being admitted for acute respiratory failure due to CHF. Patient states he went home and noticed his feet were starting to swell up, so he came in for evaluation. Reports continued shortness of breath with orthopnea. Patient notes his pharmacy did not have his prescribed medications in stock. Patient lives alone. No other complaints reported. Discharge Plan by our hospitalist service (few hours ago): #CHF Exacerbation / Acute Hypoxic Respiratory Failure ? Resolved Continue GDMT: losartan 25 mg daily, Coreg, Farxiga 10 mg daily.Cardiology follow-up:For GDMT optimization repeat echocardiogram in 2?3 months ICD evaluation if EF persists <35% #Community-Acquired Pneumonia Transition to oral antibiotics to complete full course Return to ED for any worsening symptoms (dyspnea, fever, productive cough) ROS: All negative except as documented in HPI. Physical Exam: General: Alert and oriented. Mild respiratory distress noted Eyes: Conjunctivae and lids clear. ENT: No nasal congestion. Neck: Supple. Heart: RRR. Lungs: Noted respiratory distress. Moderately decreased air movement with bilateral rales. Abdomen: Soft and nontender. Skin: Warm and dry. Legs: No pitting severe edema noted. Neuro: Alert and oriented X 3. I reviewed all diagnostic test results. My interpretation of the EKG is sinus rhythm with no acute ST?T changes. My interpretation of the chest x-ray is pneumonia. My review of the leg venous Doppler report is no DVT. My review of the chest CTA report is no PE. Blood tests is D-dimer 1330, BNP 937. UA showed positive leukocyte esterase, 47 RBC, 1644 WBC, and bacteria. At this point, diagnoses include CHF, Pneumonia, UTI. Treatment here included Rocephin 1 gram IV. Patient requested admission. I discussed the case with our hospitalist. About the presentation and exam and diagnostics and treatments here. And possible need of further care in the hospital. After evaluation, recommended discharge home because admission criteria not met. Based on my best medical judgment, made decision no further evaluation or treatment indicated at this time. Patient understands and agrees to the discharge instructions customized and printed, see below. Discharge Instructions from Dr. Corea printed for you: 1. Our hospitalist doctors evaluated you and determined you don't meet the criteria for admission. 2. Follow all the instructions given to you when you were discharged from the hospital here yesterday. Including antibiotic for pneumonia. 3. Take cefdinir for UTI, prescribed today. 4. When sitting or resting or sleeping, elevate the head of bed and elevate your feet/ankles above your waist level. This is extremely important to get the swelling down and to help remove fluid in your lungs. 5. See a private doctor on 03/21/2025 for recheck and further care. Ask for help until you are completely better. Ask to review all test results and official radiology reports, to make sure you receive all necessary follow-ups and monitoring. 6. Seek immediate medical care with worsening or with any concerns. Renato Corea MD Related Data Home Medications ?Medication ?Instructions ?Recorded ?Confirmed cholecalciferol (vitamin D3) 50 50 mcg PO DAILY 03/15/25 03/15/25 mcg (2,000 unit) tablet docusate sodium 100 mg capsule 100 mg PO BID 03/15/25 03/15/25 tamsulosin 0.4 mg capsule 0.4 mg PO DAILY 03/15/25 03/15/25 Previous Rx's ?Medication ?Instructions ?Recorded carvedilol 3.125 mg tablet 3.125 mg PO BIDWM 30 days #60 tabs 04/02/24 furosemide 40 mg tablet 40 mg PO QDAY #30 tabs 04/02/24 dapagliflozin propanediol 10 mg 10 mg PO QDAY 1 month #30 tabs 03/18/25 tablet (Farxiga) losartan 25 mg tablet 25 mg PO QDAY 1 month #30 tabs 03/18/25 cefdinir 300 mg capsule 300 mg PO BID #14 caps 03/19/25 Allergies Allergy/AdvReac Type Severity Reaction Status Date / Time doxycycline Allergy Intermediate Dizziness Verified 03/16/25 11:02 Review of Systems Review of Systems Systems Reviewed: All systems reviewed, normal except as documented ED Exam Narrative Physical exam: As noted in HPI. Course Course Course Narrative: CXR is ordered for determining the etiology of cough. Quality Measures none Orders Category Date Time Status CT Screening NOW Care 03/19/25 00:15 Completed EKG (ED ONLY) *Do not use* NOW Care 03/19/25 00:15 Completed Saline [Insert IV] NOW Care 03/19/25 00:[address] angio chest Stat Exams 03/19/25 00:15 Completed EKG (ED Only) Stat Exams 03/19/25 00:15 Draft US venous doppler LE BI Stat Exams 03/19/25 00:15 Completed XR chest 1V portable Stat Exams 03/19/25 00:15 Completed BNP [B-Type Natriuretic Peptide] Stat Lab 03/19/25 00:52 Completed Bilirubin,Direct Stat Lab 03/19/25 00:52 Completed Blood Culture (Lab) Stat Lab 03/19/25 00:57 Completed CBC Stat Lab 03/19/25 00:52 Completed CK [Creatine Kinase] Stat Lab 03/19/25 00:52 Completed CMP [Comprehensive Metabolic Panel] Stat Lab 03/19/25 00:52 Completed CRP [C-Reactive Protein] Stat Lab 03/19/25 00:52 Completed D-Dimer Stat Lab 03/19/25 00:52 Completed Drug Screen,Urine Stat Lab 03/19/25 02:23 Completed ESR [Sed Rate (ESR)] Stat Lab 03/19/25 00:52 Completed Free T4 (Free Thyroxine) Stat Lab 03/19/25 00:52 Completed Lactate (Lactic Acid) Stat Lab 03/19/25 00:52 Completed Magnesium Stat Lab 03/19/25 00:52 Completed PT [Prothrombin Time with INR] Stat Lab 03/19/25 00:52 Completed PTT [Partial Thromboplastin Time] Stat Lab 03/19/25 00:52 Completed Procalcitonin Stat Lab 03/19/25 00:52 Completed TSH [Thyroid Stimulating Hormone] Stat Lab 03/19/25 00:52 Completed Troponin I Stat Lab 03/19/25 00:52 Completed UA, C/S IF [Urinalysis, C/S if Indicated] Stat Lab 03/19/25 02:23 Completed Urine Culture Stat Lab 03/19/25 02:23 Completed cefTRIAXone [Rocephin] 1,000 mg Med 03/19/25 02:56 Discontinued SODIUM CHLORIDE 0.9% (Popper) [Ns 0.9% (P)] 50 ml IV X1 Vital Signs Vital signs: Vital Signs Temperature 98.4 F 03/18/25 23:59 Pulse Rate 92 03/18/25 23:59 Respiratory Rate 18 03/18/25 23:59 Blood Pressure 106/69 03/18/25 23:59 Pulse Oximetry (%) 96 03/18/25 23:59 Oxygen Delivery Method Room Air 03/18/25 23:59 Extremity Injury, Lower MDM Narrative MDM Narrative:: Scribe Attestation: 03/19/25 - India Ruiz am scribing for and in the presence of Dr. Corea. 65yo male with a history of CHF presents to the ED for a chief complaint of bilateral feet swelling. Patient states he was just discharged from the hospital today after being admitted for acute respiratory failure 2/2 CHF. Patient states he went home and noticed his feet were starting to swell up, so he came in for evaluation. Patient denies any fever, chills, chest pain, shortness of breath or any other associated symptoms. Patient notes his pharmacy did not have his prescribed medications in stock. Patient lives alone. No other complaints reported. Patient data External records reviewed:: [facility] previous records (Per chart review, patient was admitted here on 03/15/25 for UTI and acute hypoxic respiratory failure secondary to CHF exacerbation.) Clinical information provided by:: patient Social determinants that could affect healthcare access:: none Patient has the following chronic illnesses:: CHF How is presenting disease/condition affected by chronic disease/condition?: caused by Evaluation data The following diagnostics were reviewed and interpreted by me:: lab results, radiology exam(s) and EKG tracing(s) (My interpretation of the EKG is: Sinus rhythm (84 bpm) with PVCs and nonspecific ST-T changes. Renato Corea MD) Lab and/or radiology exams considered but not ordered:: none Interpretation Summary: I reviewed all diagnostic test results. My interpretation of the EKG is sinus rhythm with no acute ST?T changes. My interpretation of the chest x-ray is pneumonia. My review of the leg venous Doppler report is no DVT. My review of the chest CTA report is no PE. Blood tests is D-dimer 1330, BNP 937. UA showed positive leukocyte esterase, 47 RBC, 1644 WBC, and bacteria. Medications / Prescriptions Medications or Prescriptions considered but not ordered:: none Medication administrations:: Medication Administration History Discontinued Medications Ceftriaxone Sodium 1,000 mg/ (Sodium Chloride) 50 mls @ 100 mls/hr IV X1 ONE Stop: 03/19/25 03:25 Last Infusion: 03/19/25 05:47 Dose: Infused Documented By: Admin: 03/19/25 03:30 Dose: 100 mls/hr Documented By: EVERETT [employer] Consultations Consultation(s) initiated? (list below): Yes Consultation #1 (Physician, Specialty, Details): I discussed the case with our hospitalist. About the presentation and exam and diagnostics and treatments here. And possible need of further care in the hospital. After evaluation, recommended discharge home because admission criteria not met. Diagnosis Extremity Injury, Lower Differential Diagnosis: other (MD, CHF, DVT, PE) Most likely diagnosis given after review of the tests above:: CHF, Pneumonia, UTI Admission Indicated Admission indicated?: not indicated Explain why admission is indicated or not indicated:: I discussed the case with our hospitalist. About the presentation and exam and diagnostics and treatments here. And possible need of further care in the hospital. After evaluation, recommended discharge home because admission criteria not met. Admission Request Was there a request for admission?: No Disposition Plan Disposition Plan: Discharge Discharge Attestation Discharge Attestation: The patient and all family members were given an opportunity to ask questions and understood the discharge instructions. Discharge instructions specifically effects, indications for sooner follow up or return to the emergency department, and the expected course of current diagnosis. Patient condition: Stable Discharge Plan Plan Patient Disposition: HOME (Self Care) Prescriptions/Referrals Prescriptions/Med Rec: New cefdinir 300 mg capsule 300 mg PO BID Qty: 14 0RF No Action furosemide 40 mg tablet 40 mg PO QDAY Qty: 30 3RF carvedilol 3.125 mg Tablet 3.125 mg PO BIDWM 30 Days Qty: 60 3RF tamsulosin 0.4 mg capsule 0.4 mg PO DAILY Patient Comments: take 1 capsule by mouth once daily cholecalciferol (vitamin D3) 50 mcg (2,000 unit) tablet 50 mcg PO DAILY Patient Comments: take 1 tablet by mouth once daily docusate sodium 100 mg capsule 100 mg PO BID Patient Comments: take 1 capsule by mouth twice a day if needed for constipation dapagliflozin propanediol [Farxiga] 10 mg tablet 10 mg PO QDAY 30 Days Qty: 30 0RF losartan 25 mg tablet 25 mg PO QDAY 30 Days Qty: 30 0RF Referrals: Julian Dick MD [Primary Care Provider] - In 1 week Problem List Clinical Impression: CHF (congestive heart failure), Pneumonia, UTI (urinary tract infection) Patient/Caregiver Discharge Instructions Discharge Activity: activity as tolerated Education Materials: ED CHF Left Side, ED Pneumonia (Adult), ED Bladder Infection, Male (Adult) Additional Instructions: Discharge Instructions from Dr. Corea printed for you: 1. Our hospitalist doctors evaluated you and determined you don't meet the criteria for admission. 2. Follow all the instructions given to you when you were discharged from the hospital here yesterday. Including antibiotic for pneumonia. 3. Take cefdinir for UTI, prescribed today. 4. When sitting or resting or sleeping, elevate the head of bed and elevate your feet/ankles above your waist level. This is extremely important to get the swelling down and to help remove fluid in your lungs. 5. See a private doctor on 03/21/2025 for recheck and further care. Ask for help until you are completely better. Ask to review all test results and official radiology reports, to make sure you receive all necessary follow-ups and monitoring. 6. Seek immediate medical care with worsening or with any concerns. Print Language: Albanian Stand Alone Forms: Nidia Award Info., Patient Portal Info Letter
--- NOTE | 2025-03-19 00:15 | XR_ITS ---
Examination: AP chest single view Technique one AP portable upright chest single view Exam date and time: March 19, 2025 0028 hrs. Comparison March 17, 2025 Indications: Shortness of breath today Findings: Significant pneumonia left base Mild prominence left ventricle Right lung clear Impression: Significant left base pneumonia
--- NOTE | 2025-03-19 00:15 | XR_ITS ---
Examination: CTA chest with intravenous contrast 2-D reconstructions 3-D reconstructions, vascular Date and time of exam: March 19, 2025, 0358 hrs. Indications: Onset chest pain shortness of breath today CTDI: vol (mGy) 18.1 DLP: (mGycm) 652 Technique: Multiple axial sections of the thorax have been obtained. 3 mm slice thickness, from below the hemidiaphragms to above the apices of the lungs. Mediastinal and lung density settings have been obtained. 2-D sagittal and coronal reconstructions. 3-D angiographic renderings, 3-D volume renderings, 3D post processing, vascular maximum intensity projections obtained. Contrast administered is 100 cc Isovue-370. Low dose protocols were performed. One or more of the following dose reduction techniques were used; automated exposure control, adjustment of the mA and/or KV according to patient size, use of iterative reconstruction technique. Findings: Heavy thoracic aortic calcification no aneurysmal dilatation No pulmonary artery emboli Mild enlargement cardiac contour No paratracheal tracheobronchial or bronchopulmonary adenopathy Pneumonia left base Liver is irregular in contour 6 mm low-density lesion anterior right lobe of the liver Small gallstones No pancreatic mass Heavy abdominal aortic calcification AP dimension infrarenal abdominal aorta 3.7 cm Impression: Negative for pulmonary artery emboli Left base pneumonia Primary hepatocellular disease Infrarenal abdominal aortic aneurysm 3.7 cm
--- NOTE | 2025-03-19 00:15 | EKG_ITS ---
[facility] Test Date: 2025-03-19 Pat Name: CANDY SHIELDS Department: Room: - Gender: Male [employer] Fe[employer]: : 1960 Requested By: Renato Peres Order Number: [id number] Reading MD: Renato Peres Measurements Intervals [place] Rate: 84 P: 30 GA: 153 QRS: -7 QRSD: 117 T: 112 QT: 405 QTc: 480 Interpretive Statements SINUS RHYTHM WITH OCCASIONAL VENTRICULAR PREMATURE COMPLEXES MODERATE INTRAVENTRICULAR CONDUCTION DELAY [110+ ms QRS DURATION] MINIMAL VOLTAGE CRITERIA FOR LVH, CONSIDER NORMAL VARIANT [MEETS CRITERIA IN ONE OF: R(aVL), S(V1), R(V5), R(V5/V6)+S(V1)] NONSPECIFIC T-WAVE ABNORMALITY Compared to ECG 03/15/2025 11:43:59 Ventricular premature complex(es) now present Possible ischemia no longer present T-wave abnormality still present /store/S0/[id number].pdf
--- NOTE | 2025-03-19 00:15 | XR_ITS ---
Examination: Venous duplex lower extremity sonogram, bilateral. Date and time of exam: March 19, 2025 0123 hrs. Indications: Leg pain and edema today with elevated d-dimer (examination today Technique: Multiple sonographic images of the deep venous system have been obtained. B-mode/2-D grayscale imaging of vascular structures and Doppler spectral analysis (waveforms) and color performed Both legs are examined. Findings: Deep venous systems do not demonstrate abnormal echogenicity. All visualized deep veins exhibit compressibility. All visualized deep veins exhibit augmentation. Impression: Negative for deep vein thrombosis
[2025-03-19 01:04] LABS: Lactate (Lactic Acid) 1.4 mMol/L (0.4-2.0)
[2025-03-19 01:08] LABS: Sed Rate (ESR) 24 mm/hr (0-20)
[2025-03-19 01:12] LABS: Basophils # (Auto) 0.1 Thou/mm3 (0.0-0.2); Basophils % (Auto) 1 % (0-2.5); Eosinophils # (Auto) 0.3 Thou/mm3 (0.0-0.5); Eosinophils % (Auto) 3 % (0-10); Hematocrit 42.6 % (41.0-53.0); Hemoglobin 14.3 g/dL (13.5-16.0); Immature Granulocytes % (Auto) 0 % (0-0); Immature Granulocytes Auto 0.03 Thou/mm3 (0.00-0.00); Lymphocytes # (Auto) 1.3 Thou/mm3 (1.0-4.8); Lymphocytes % (Auto) 14 % (10-50); Mean Corpuscular HGB Conc 33.6 g/dl (31.0-37.0); Mean Corpuscular Hemoglobin 28.7 pg (25.0-35.0); Mean Corpuscular Volume 85 fL (80-100); Monocytes # (Auto) 0.9 Thou/mm3 (0.0-0.8); Monocytes % (Auto) 9 % (0-12); Neutrophils # (Auto) 7.1 Thou/mm3 (1.8-7.7); Neutrophils % (Auto) 74 % (37-80); Nucleated Red Blood Cell % 0 /100 WBC (0); Platelet Count 193 Thou/mm3 (140-440); RDW Standard Deviation 41.9 fL (35.1-43.9); Red Blood Count 4.99 Miln/mm3 (4.50-5.90); White Blood Count 9.6 Thou/mm3 (3.8-10.6)
[2025-03-19 01:19] LABS: INR 1.1 (0.9-1.3); Partial Thromboplastin Time 23.7 Seconds (22.0-36.0)
[2025-03-19 01:22] LABS: D-Dimer 1330 ng/mL (<600)
[2025-03-19 01:23] LABS: B-Type Natriuretic Peptide 937 pg/mL (0-100)
[2025-03-19 01:37] LABS: Alanine Aminotransferase 31 U/L (10-49); Albumin, Serum 4.3 gm/dL (3.4-4.8); Albumin/Globulin Ratio 1.3 (1.2-2.2); Alkaline Phosphatase 106 U/L (46-116); Anion Gap 8 (7-16); Aspartate Amino Transferase 41 U/L (0-34); BUN/Creatinine Ratio 24 Ratio (12-20); Bilirubin,Direct 0.3 mg/dL (0.0-0.3); Bilirubin,Total 0.8 mg/dL (0.3-1.2); Blood Urea Nitrogen 34 mg/dL (9-23); C-Reactive Protein < 0.5 mg/dL (0.0-0.9); Calcium 9.7 mg/dL (8.3-10.6); Calcium (Corrected) 9.7 mg/dL (8.5-10.1); Carbon Dioxide 29.6 mMol/L (20.0-31.0); Chloride 103 mMol/L (98-107); Creatine Kinase 91 U/L (34-171); Creatinine (Component) 1.4 mg/dL (0.6-1.3); Estimated Creatinine Clearance 70.1 mL/min (>60); Free T4 (Free Thyroxine) 1.62 ng/dL (0.89-1.76); Globulin 3.3 gm/dL (2.3-3.5); Glucose 125 mg/dL (74-106); Magnesium 2.4 mg/dL (1.6-2.6); Osmolality,Calculated 289 (275-295); Potassium 4.4 mMol/L (3.4-5.1); Procalcitonin 0.09 ng/ml (0.0-0.49); Sodium 141 mMol/L (136-145); Thyroid Stimulating Hormone 1.92 uIU/mL (0.55-4.78); Total Protein 7.6 gm/dL (5.7-8.2); Troponin I < 0.020 ng/mL (0.0-0.045); eGFR 56 See Note
[2025-03-19 02:27] LABS: Collection Type, Urine Clean Catch
[2025-03-19 02:37] LABS: Amphetamine/Methamp Scrn,U Negative (Negative); Barbiturate Screen,Urine Negative (Negative); Benzodiazepines Screen,Urine Negative (Negative); Benzoylecgonine Screen, Ur Negative (Negative); Fentanyl Screen,Urine Negative (Negative); Opiate Screen,Urine Negative (Negative); THC Screen,Urine Negative (Negative)
[2025-03-19 02:40] LABS: Bacteria,Urine Rare; Bilirubin,Urine Negative (Negative); Blood,Urine 1+ (Negative); Clarity,Urine Turbid (Clear/Hazy); Color,Urine Yellow (Lt Yel-Yel); Culture Indicated,Urine Yes; Glucose, Urine 4+ (Negative); Hyaline Casts,Urine < 1 /hpf (0-1); Ketones,Urine Negative (Negative); Leukocyte Esterase,Urine Positive (Negative); Nitrite,Urine Negative (Negative); Protein,Urine 1+ (Neg - Trace); RBC,Urine 47 /hpf (0-3); Specific Gravity,Urine 1.024 (1.001-1.035); Squamous Epithelial Cell,Urine 6 /hpf (0-5); Urobilinogen,Urine Negative mg/dL (0.0-1.0); WBC,Urine 1644 /hpf (0-5)
--- NOTE | 2025-03-19 03:11 | PRELIM_ITS ---
Bilateral lower extremity venous Doppler ultrasound. March 19, 2025 0123 hours Clinical history: Edema, high dimer. Technique: Duplex scan of the bilateral lower extremity deep venous systems was performed utilizing 2D grayscale imaging, Doppler spectral analysis and color flow Doppler and with compression. Comparison: No prior study is available for comparison. Findings: Morse scale, color flow and spectral Doppler evaluation of the lower extremity deep veins was performed. Right: The common femoral, superficial femoral and popliteal veins are patent and compressible. Normal respiratory variation and augmentation are noted. The great saphenous vein is patent at the level of the saphenofemoral junction. The calf veins to the extent visualized are patent. There is no evidence of occlusive or nonocclusive thrombus. Left: The common femoral, superficial femoral and popliteal veins are patent and compressible. Normal respiratory variation and augmentation are noted. The great saphenous vein is patent at the level of the saphenofemoral junction. The calf veins to the extent visualized are patent. There is no evidence of occlusive or nonocclusive thrombus. Impression: No sonographic evidence of deep venous thrombosis in both lower extremities. Report Electronically Signed By: Anshul Peralta 03/19/2025 3:10:33 AM [EST]
[2025-03-19] MEDS: cefTRIAXone 1,000 MG in SODIUM CHLORIDE 0.9% (Popper) 50 ML 100 MG IV (03:30)
[2025-03-19 03:35] VITALS: BP 119/79; PULSE 87; RESP 19; TEMP 36.4; O2SAT 97
--- NOTE | 2025-03-19 04:47 | PRELIM_ITS ---
CT angiogram of the chest with intravenous contrast (axial sections with sagittal and coronal reformats) March 19, 2025 0358 hours Clinical History: SOB Technique:Helical axial sections with sagittal and coronal reformats of the chest were obtained with intravenous contrast. Iterative reconstruction technique was employed to reduce patient radiation exposure. 3D/MIP reconstructed images were also provided. Comparison: No prior study is available for comparison. Radiation Dose: Total exam DLP 652 mGy/cm. Contrast Dose: Not available. Findings: There is no filling defect within the pulmonary artery divisions to suggest pulmonary thromboembolism. The mediastinum demonstrates no evidence of mass or lymphadenopathy. The thoracic aorta is unremarkable. There is no pericardial effusion. The aorta and its branches demonstrate atheromatous calcification without evidence of aneurysm. There is left lung base infiltrate. No evidence of pleural effusion or pneumothorax. There is an chronic compression fracture of the T8 vertebral body. Mild degenerative changes are identified in the spine. There is a calcified gallbladder calculus, measuring 3 mm without evidence of gallbladder wall thickening or pericholecystic fluid. A hypodense lesion is noted in the left kidney, too small to characterize. The other visualized upper abdominal viscera are unremarkable. Impression: No CT evidence of pulmonary thromboembolism. Left lung base infiltrate, likely of infectious etiology. Report Electronically Signed By: Susana Crystal 03/19/2025 4:47:21 AM [EST]
[2025-03-19 06:01] VITALS: BP 115/80; PULSE 90; RESP 15; O2SAT 94
== END 2025-03-19 06:02 | disposition home or self-care (01) ==
PROVIDERS: Emergency Provider Emergency Medicine; PCP Family Medicine
DX: I50.9 Heart failure, unspecified (principal); N39.0 Urinary tract infection, site not specified; J18.9 Pneumonia, unspecified organism; I49.3 Ventricular premature depolarization
CPT/HCPCS: 36415; 71045; 71275; 80053; 80307; 81001; 82248; 82550; 83605; 83735; 83880; 84145; 84439; 84443; 84484; 85025; 85379; 85610; 85652; 85730; 86140; 87040; 87086; 93005; 93970; 96365; 96366; 99285; A4649; J0696; J7050; Q9967

== ENCOUNTER → 2025-03-25 | Outpatient (CLI) | payer MEDICAID, SELFPAY | END | disposition home or self-care (01) | LOC: SWHD 07:46 | PROVIDERS: Visit Provider Surgery | DX: I87.313 Chronic venous hypertension (idiopathic) with ulcer of bilateral lower extremity (principal); L97.521 Non-pressure chronic ulcer of other part of left foot limited to breakdown of skin; L97.511 Non-pressure chronic ulcer of other part of right foot limited to breakdown of skin; R60.0 Localized edema; L85.3 Xerosis cutis; I50.9 Heart failure, unspecified; I10 Essential (primary) hypertension | CPT/HCPCS: 99213; G0463 ==

== ENCOUNTER 2025-04-30 23:33 | Inpatient (IN) | payer MEDICAID, SELFPAY ==
[2025-04-30 23:44] VITALS: BP 123/83; PULSE 112; PULSE 97; RESP 18; RESP 24; TEMP 36.8; O2SAT 94; O2SAT 96; BMI 36.3
--- NOTE | 2025-04-30 23:44 | EKG_ITS ---
[facility] Test Date: 2025-04-30 Pat Name: CANDY SHIELDS Department: Room: - Gender: Male Care Clinician: : 1960 Requested By: Renato Peres Order Number: [id number] Reading MD: Renato Peres Measurements Intervals Kenna Rate: 100 P: 43 SD: 145 QRS: -23 QRSD: 115 T: 151 QT: 378 QTc: 487 Interpretive Statements SINUS TACHYCARDIA WITH OCCASIONAL VENTRICULAR PREMATURE COMPLEXES WITH OCCASIONAL SUPRAVENTRICULAR PREMATURE COMPLEXES BORDERLINE LEFT AXIS DEVIATION [QRS AXIS < -20] LEFT VENTRICULAR HYPERTROPHY AND ST-T CHANGE [VOLTAGE CRITERIA PLUS ST/T ABNORMALITY] Compared to ECG 03/19/2025 02:32:44 ST (T wave) deviation now present Sinus rhythm no longer present Intraventricular conduction delay no longer present T-wave abnormality no longer present /store/S0/[id number]/ecg/[id number].pdf
[2025-05-01] VITALS (14 sets, daily range): BP systolic 94–124; BP diastolic 61–89; PULSE 73–110; RESP 15–96; TEMP 36.1–36.8; O2SAT 94–97; BMI 34.9
--- NOTE | 2025-05-01 00:06 | PD.EDEXREM ---
ED Extremity Problem RME/HPI General Chief complaint: Extremity Problem,Nontraumatic Stated complaint: LEG SWELLING Arrival date/time: 04/30/25 23:33 RME / HPI RME / HPI Narrative: This section includes all my notes and documentations, including HPI, PE, and ED course. Renato Corea MD HPI: 65 y/o male with Hx of CHF, HTN, and possible use of crack cocaine BIBA with several days of worsening dyspnea and swelling in the genitals and legs. Has not been taking diuretics for a couple of weeks. No fever. No chest pain. No other complaints. ROS: All negative except as documented in HPI. Physical Exam: General: Alert and oriented. No mild respiratory distress. Eyes: Conjunctivae and lids clear. ENT: No nasal congestion. Neck: Supple. Heart: RRR. Lungs: Mild respiratory distress. Moderately decreased air movement with diffuse rales. Abdomen: Soft with equivocal tenderness, difficult to localize. Normal bowel sounds. No distension. No rebound or guarding. Back: No CVA tenderness. Skin: Warm and dry. Neuro: Alert and oriented X 3. Genitalia: Severe edema. Legs: Severe edema bilaterally. I reviewed EMS notes. I reviewed all diagnostic test results. My interpretation of the EKG is: Sinus rhythm (100 bpm) with PACs and PVCs and nonspecific ST-T changes. My interpretation of the chest x-ray is increased vascular congestion. My review of the Chest/Abdomen/Pelvis CT report is: Bilateral pleural effusions. Liver cirrhosis. Cholelithiasis. Ascites. Blood tests remarkable for BNP 3100. UA showed positive leukocyte Estrace, 93 RBC, 1035 WBC. COVID/influenza negative. At this point, diagnoses include CHF and UTI. Treatment here included Lasix, Morphine, Nitroglycerin, Rocephin. Significant improvement not noted. I discussed the case with our hospitalist. About the presentation and exam and diagnostics and treatments here. And need of further care in the hospital. Will accept the patient. Renato Corea MD Related Data Home Medications ?Medication ?Instructions ?Recorded ?Confirmed cholecalciferol (vitamin D3) 50 50 mcg PO DAILY 04/15/25 04/15/25 mcg (2,000 unit) tablet docusate sodium 100 mg capsule 100 mg PO BID 03/15/25 03/15/25 tamsulosin 0.4 mg capsule 0.4 mg PO DAILY 03/15/25 03/15/25 Previous Rx's ?Medication ?Instructions ?Recorded carvedilol 3.125 mg tablet 3.125 mg PO BIDWM 30 days #60 tabs 04/02/24 furosemide 40 mg tablet 40 mg PO QDAY #30 tabs 04/02/24 cefdinir 300 mg capsule 300 mg PO BID #14 caps 03/19/25 Allergies Allergy/AdvReac Type Severity Reaction Status Date / Time doxycycline Allergy Intermediate Dizziness Verified 03/16/25 11:02 Review of Systems Review of Systems Systems Reviewed: All systems reviewed, normal except as documented Past Medical History Past Medical History CARDIAC: Positive Peripheral Vascular Disease, Congestive Heart Failure, Edema and Hypertension RESPIRATORY: Positive Pneumonia GASTROINTESTINAL: Positive Obesity GENITOURINARY: Positive Benign Prostatic Hyperplasia PSYCHO/SOCIAL: Positive Recreational Drug Use (post use, cocaine, meth) and Anxiety OTHER HISTORY: Positive Falls Surgical History SURGICAL: Positive Amputation (Left 2nd toe) Social History SUBSTANCE USE: crack/cocaine ED Exam Narrative Physical exam: Refer to HPI above Course Course Course Narrative: CXR is ordered for determining the etiology of shortness of breath. Quality Measures none Orders Category Date Time Status Admit to Inpatient Status Routine Admission 05/01/25 03:42 Active Patient Condition Routine Admission 05/01/25 03:42 Ordered Bedside COVID-19 Antigen Test NOW Care 05/01/25 00:10 Active Bedside Influenza A&B Antigen Test NOW Care 05/01/25 00:10 Completed EKG (ED ONLY) *Do not use* NOW Care 04/30/25 23:44 Completed EKG (ED ONLY) *Do not use* NOW Care 05/01/25 00:11 Completed Beal [Urinary Catheter] QS Care 05/01/25 00:29 Active Beal to [place] Routine Care 05/01/25 00:10 Ordered Intake and Output QSHIFT Care 05/01/25 03:45 Ordered Miscellaneous Nursing Order NOW Care 05/01/25 03:42 Active Notify provider NEEDED Care 05/01/25 03:42 Active Obtain weight DAILY Care 05/01/25 03:42 Active Saline [Insert IV] NOW Care 05/01/25 00:10 Active Referral Physical Therapy Routine Cons 05/01/25 03:[address] chest abdomen pelvis wo Stat Exams 05/01/25 00:11 Taken EKG (ED Only) Stat Exams 04/30/25 23:44 Draft EKG (ED Only) Stat Exams 05/01/25 00:11 Ordered XR chest 1V portable Stat Exams 05/01/25 00:11 Taken ABG [Arterial Blood Gas] Stat Lab 05/01/25 00:59 Completed Amylase Stat Lab 05/01/25 00:20 Completed BNP [B-Type Natriuretic Peptide] Stat Lab 05/01/25 00:20 Completed Basic Metabolic Panel AM DRAW Lab 05/01/25 05:00 Ordered Basic Metabolic Panel AM DRAW Lab 05/02/25 05:00 Ordered Basic Metabolic Panel AM DRAW Lab 05/03/25 05:00 Ordered Bilirubin,Direct Stat Lab 05/01/25 00:20 Completed Blood Culture (Lab) Stat Lab 05/01/25 00:38 Received CBC AM DRAW Lab 05/01/25 05:00 Ordered CBC AM DRAW Lab 05/02/25 05:00 Ordered CBC AM DRAW Lab 05/03/25 05:00 Ordered CBC Stat Lab 05/01/25 00:20 Completed CMP [Comprehensive Metabolic Panel] Stat Lab 05/01/25 00:20 Completed CRP [C-Reactive Protein] Stat Lab 05/01/25 00:20 Completed Drug Screen,Urine Stat Lab 05/01/25 01:35 Completed ESR [Sed Rate (ESR)] Stat Lab 05/01/25 00:20 Completed Free T4 (Free Thyroxine) Stat Lab 05/01/25 00:20 Completed Lactate (Lactic Acid) Stat Lab 05/01/25 00:20 Completed Lipase Stat Lab 05/01/25 00:20 Completed Lipid Panel AM DRAW Lab 05/01/25 05:00 Ordered Liver Panel AM DRAW Lab 05/01/25 05:00 Ordered MRSA Nasal Screen Routine Lab 05/01/25 03:42 Ordered Magnesium AM DRAW Lab 05/01/25 05:00 Ordered Magnesium Stat Lab 05/01/25 00:20 Completed PT [Prothrombin Time with INR] Stat Lab 05/01/25 00:20 Completed PTT [Partial Thromboplastin Time] Stat Lab 05/01/25 00:20 Completed Phosphorous AM DRAW Lab 05/01/25 05:00 Ordered Procalcitonin Stat Lab 05/01/25 00:20 Completed Prothrombin Time with INR AM DRAW Lab 05/01/25 05:00 Ordered TSH [Thyroid Stimulating Hormone] Stat Lab 05/01/25 00:20 Completed Thyroid Stimulating Hormone AM DRAW Lab 05/01/25 05:00 Ordered Troponin I Stat Lab 05/01/25 00:20 Completed UA, C/S IF [Urinalysis, C/S if Indicated] Stat Lab 05/01/25 01:35 Completed Urine Culture Stat Lab 05/01/25 02:33 Ordered Acetaminophen Tab [Tylenol Tab] Med 05/01/25 03:42 Active 650 mg PO Q6H PRN Aspirin [Ecotrin] Med 05/01/25 09:00 Active 81 mg PO QDAY Atorvastatin Calcium [Lipitor] Med 05/01/25 21:00 Active 40 mg PO HS Bumetanide Inj [Bumex Inj] Med 05/01/25 09:00 Active 2 mg IVP BID Furosemide Inj [Lasix Inj] Med 05/01/25 00:11 Discontinued 80 mg IVP X1 ONE Losartan [Cozaar] Med 05/01/25 09:00 Active 25 mg PO QDAY Morphine Inj Med 05/01/25 00:11 Discontinued 2 mg IVP X1 ONE Nitroglycerin Oint 2% [Nitro-paste Oint 2%] Med 05/01/25 00:11 Discontinued 2 inch TOP X1 ONE Ondansetron Inj [Zofran Inj] Med 05/01/25 03:42 Active 4 mg IV Q6H PRN Senna [Senokot] Med 05/01/25 03:42 Active 2 tab PO BID PRN carVEDILOL [Coreg] Med 05/01/25 08:00 Active 3.125 mg PO BIDWM cefTRIAXone [Rocephin] 1 gm Med 05/01/25 03:32 Discontinued SODIUM CHLORIDE 0.9% (Popper) [Ns 0.9% (P)] 50 ml IV Q12HR cefTRIAXone [Rocephin] 1 gm Med 05/01/25 03:34 Discontinued SODIUM CHLORIDE 0.9% (Popper) [Ns 0.9% (P)] 50 ml IV X1 cefTRIAXone/D5w 1gm IV premix [Rocephin/D5w 1gm IV Med 05/01/25 02:35 Discontinued premix] 1 g in 50 ml IV X1 cefTRIAXone/D5w 1gm IV premix [Rocephin/D5w 1gm IV Med 05/01/25 09:00 Pending premix] 1 gm in 50 ml IV QDAY Code Status Routine Oth 05/01/25 03:42 Ordered Oxygen Delivery DAILY RT 05/01/25 03:42 Active Vital Signs Vital signs: Vital Signs Temperature 98.3 F 04/30/25 23:44 Pulse Rate 97 04/30/25 23:44 Respiratory Rate 24 H 04/30/25 23:44 Blood Pressure 123/83 04/30/25 23:44 Pulse Oximetry (%) 94 L 04/30/25 23:44 Oxygen Delivery Method Room Air 04/30/25 23:44 Extremity Problem MDM Narrative MDM Narrative:: Scribe Attestation: I, Amara Olvera, am scribing for and in the presence of Dr. Corea. Provider Notation: Although this document has been carefully reviewed, there may still be some phonetic and other typographical errors.? These errors are purely grammatical due to imperfections in the software program and should not be construed in any way to? compromise the substance of the patient's medical care during this visit. 65 y/o male with Hx of CHF, HTN, and possible use of crack cocaine BIBA with several days of worsening dyspnea and swelling in the genitals and legs. Has not been taking diuretics for a couple of weeks. No fever. No chest pain. No other complaints. Patient data External records reviewed:: [facility] previous records (Reviewed prior ED record from 03/19/25. Patient was seen for CHF (congestive heart failure).) and EMS form Clinical information provided by:: patient and EMS Social determinants that could affect healthcare access:: substance use (Crack cocaine) Patient has the following chronic illnesses:: Peripheral Vascular Disease, Congestive Heart Failure, Edema, Hypertension, Benign Prostatic Hyperplasia, Recreational Drug Use (post use, cocaine, meth) and Anxiety How is presenting disease/condition affected by chronic disease/condition?: exacerbated by Evaluation data The following diagnostics were reviewed and interpreted by me:: lab results, radiology exam(s) and EKG tracing(s) (My interpretation of the EKG is: Sinus rhythm (100 bpm) with PACs and PVCs and nonspecific ST-T changes. Renato Corea MD) Lab and/or radiology exams considered but not ordered:: None Interpretation Summary: I reviewed all diagnostic test results. My interpretation of the EKG is: Sinus rhythm (100 bpm) with PACs and PVCs and nonspecific ST-T changes. My interpretation of the chest x-ray is increased vascular congestion. My review of the Chest/Abdomen/Pelvis CT report is: Bilateral pleural effusions. Liver cirrhosis. Cholelithiasis. Ascites. Blood tests remarkable for BNP 3100. UA showed positive leukocyte Estrace, 93 RBC, 1035 WBC. COVID/influenza negative. Medications / Prescriptions Medications or Prescriptions considered but not ordered:: None Medication administrations:: Medication Administration History Acetaminophen (Acetaminophen 325 Mg Tablet) 650 mg PO Q6H PRN PRN Reason: PAIN OR FEVER > 101 Stop: 05/31/25 03:41 Aspirin (Aspirin Ec 81 Mg Tabec) 81 mg PO QDAY CHYNA Stop: 05/31/25 08:59 Atorvastatin Calcium (Atorvastatin Calcium 20 Mg Tablet) 40 mg PO HS CHYNA Stop: 05/31/25 20:59 Bumetanide (Bumetanide Inj 0.25 Mg/Ml Vial 4 Ml) 2 mg IVP BID CHYNA Stop: 05/31/25 08:59 Carvedilol (Carvedilol 3.125 Mg Tablet) 3.125 mg PO BIDWM CHYNA Stop: 05/31/25 07:59 Ceftriaxone Sodium/Dextrose (Rocephin/D5w 1gm Iv Premix) 1 gm in 50 mls @ 100 mls/hr IV QDAY CHYNA Stop: 05/08/25 08:59 Losartan Potassium (Losartan Potassium 25 Mg Tablet) 25 mg PO QDAY CHYNA Stop: 05/31/25 08:59 Ondansetron HCl (Ondansetron Inj 2 Mg/Ml Inj 2 Ml) 4 mg IV Q6H PRN; Protocol PRN Reason: NAUSEA OR VOMITING Stop: 05/31/25 03:41 Sennosides (Senna Tablet) 2 tab PO BID PRN; Protocol PRN Reason: CONSTIPATION Stop: 05/31/25 03:41 Discontinued Medications Furosemide (Furosemide Inj 10 Mg/Ml 4ml Vial) 80 mg IVP X1 ONE Stop: 05/01/25 00:12 Last Admin: 05/01/25 00:26 Dose: 80 mg Documented By: CB Ceftriaxone Sodium/Dextrose (Rocephin/D5w 1gm Iv Premix) 1 g in 50 mls @ 100 mls/hr IV X1 ONE Stop: 05/01/25 03:04 Last Admin: 05/01/25 03:33 Dose: Not Given Documented By: LINDSEY Non-Admin Reason: Cancelled by Provider Ceftriaxone Sodium 1 gm/ (Sodium Chloride) 50 mls @ 100 mls/hr IV Q12HR CHYNA Stop: 05/08/25 03:31 Last Admin: 05/01/25 03:35 Dose: Not Given Documented By: LINDSEY Non-Admin Reason: Cancelled by Provider Ceftriaxone Sodium 1 gm/ (Sodium Chloride) 50 mls @ 100 mls/hr IV X1 ONE Stop: 05/01/25 04:03 Last Admin: 05/01/25 03:55 Dose: 100 mls/hr Documented By: CHENG Morphine Sulfate (Morphine Sulf Inj 10 Mg/Ml Vial) 2 mg IVP X1 ONE Stop: 05/01/25 00:12 Last Admin: 05/01/25 00:26 Dose: 2 mg Documented By: CHENG Nitroglycerin (Nitroglycerin Oint 2% 1 Inch Packet) 2 inch TOP X1 ONE Stop: 05/01/25 00:12 Last Admin: 05/01/25 00:28 Dose: 2 inch Documented By: CHENG Lasix, Morphine, Nitroglycerin, Rocephin from la. Consultations Consultation(s) initiated? (list below): No Diagnosis Extremity Problem Differential Diagnosis: gout, cellulitis, superficial thrombophlebitis, deep venous thrombosis of upper extremity, lower extremity edema, deep vein thrombosis of lower extremity and other (AR, CHF, COPD, pneumonia, COVID, influenza, sepsis) Most likely diagnosis given after review of the tests above:: CHF and UTI Admission Indicated Admission indicated?: indicated Explain why admission is indicated or not indicated:: Severe CHF and UTI Admission Request Was there a request for admission?: Yes Admission Attestation Admission request attestation: Discussed case with Hospitalist service regarding admission. Discussed patients ED course, exam findings, labs, and radiology results. The Hospitalist [agrees] to accept the patient for admission. Disposition Plan Disposition Plan: Admit Critical Care Time Critical Care Time Critical Care Time: Yes Total Critical Care Time (min.): 42 Attestation: Due to a high probability of clinically significant, life threatening deterioration, the patient required my highest level of preparedness to intervene emergently and I personally spent this critical care time directly and personally managing the patient. This critical care time included obtaining a history; examining the patient; ordering and review of studies; arranging urgent treatment with development of a management plan; evaluation of patient's response to treatment; frequent reassessment; and discussions with family and other providers. It was exclusive of separately billable procedures and treating other patients and teaching time. Renato Corea MD Discharge Plan Plan Patient Disposition: Admit Acute Care w/in Hospital Prescriptions/Referrals Prescriptions/Med Rec: No Action furosemide 40 mg tablet 40 mg PO QDAY Qty: 30 3RF carvedilol 3.125 mg Tablet 3.125 mg PO BIDWM 30 Days Qty: 60 3RF tamsulosin 0.4 mg capsule 0.4 mg PO DAILY Patient Comments: take 1 capsule by mouth once daily cholecalciferol (vitamin D3) 50 mcg (2,000 unit) tablet 50 mcg PO DAILY Patient Comments: take 1 tablet by mouth once daily docusate sodium 100 mg capsule 100 mg PO BID Patient Comments: take 1 capsule by mouth twice a day if needed for constipation cefdinir 300 mg capsule 300 mg PO BID Qty: 14 0RF Referrals: No Primary/Family,Physician [Primary Care Provider] - In 1 week Problem List Clinical Impression: CHF exacerbation, UTI (urinary tract infection) Patient/Caregiver Discharge Instructions Print Language: Citizen Of [place] Stand Alone Forms: Nidia Award Info., Patient Portal Info Letter
--- NOTE | 2025-05-01 00:11 | XR_ITS ---
Examination: CT chest, without intravenous contrast. CT abdomen, without intravenous contrast. CT pelvis, without intravenous contrast. 2-D sagittal and coronal reconstructions. 3-D reconstructions. Date and time of exam:May 01, 2025 0127 hours INDICATIONS: Chest and abdominal pain today CTDI vol (mgy) 19 DLP (MGycm)1578 Technique: Multiple CT images, 3.0 mm slice thickness, obtained chest, abdomen, pelvis, with the high-resolution 64 slice scanner.. Sagittal and coronal 2-D reconstructions are obtained. 3-D reconstructions Low dose protocols were performed. One or more of the following dose reduction techniques were used; automated exposure control, adjustment of the mA and/or KV according to patient size, use of iterative reconstruction technique. Findings: Thoracic aortic calcification no aneurysmal dilatation Heavy calcification left main left anterior descending coronary arteries Mild enlargement cardiac contour Pneumonia left base Small bilateral pleural effusions Cirrhosis, liver nodular in contour with small ascites Cholelithiasis No pancreatic or adrenal mass Renal parenchymal scar formation severe on the left 1 mm left renal calculus Abdominal aortic calcification AP dimension abdominal aorta 3.3 cm at the level of the renal artery Infrarenal abdominal aorta demonstrates small outpouching of the abdominal aorta axial image 212, AP dimension of the aorta at this level is 37 mm There is an aortoiliac stent with severe narrowing of the left common iliac artery axial image 245 No bowel obstruction Urinary bladder contracted around a Beal catheter Severe osteopenia IMPRESSION: Left base pneumonia Small pleural effusions Mildly large cardiac contour Bilateral renal parenchymal scar formation 1 mm nonobstructing left renal calculus Mild aneurysmal dilatation abdominal aorta with a small localized outpouching of the lower abdominal aorta, axial images 213, the outpouching measuring 10 x 4 mm Severe narrowing of the left common iliac artery. Recommend CTA abdomen and pelvis postcontrast follow-up to better assess the aorta and endoluminal aortoiliac stent
--- NOTE | 2025-05-01 00:11 | XR_ITS ---
Examination: AP chest single view TECHNIQUE: AP upright portable chest single view Date and time: May 01, 2025, 0142 hours Comparison March 19, 2025 INDICATION: Shortness of breath today. FINDINGS: Left base pneumonia, small left pleural effusion Mild vascular congestion Prominent osteopenia IMPRESSION: Left base pneumonia
[2025-05-01] MEDS: MORPHINE SULF INJ 10 MG/ML VIAL 2 MG IVP (00:26)
[2025-05-01] MEDS: FUROSEMIDE INJ 10 MG/ML 4ML VIAL 80 MG IVP (00:26)
[2025-05-01] MEDS: NITROGLYCERIN OINT 2% 1 INCH PACKET 2 INCH TOP (00:28)
[2025-05-01 00:30] LABS: Lactate (Lactic Acid) 1.4 mMol/L (0.4-2.0)
[2025-05-01 00:33] LABS: Basophils # (Auto) 0.1 Thou/mm3 (0.0-0.2); Basophils % (Auto) 1 % (0-2.5); Eosinophils # (Auto) 0.1 Thou/mm3 (0.0-0.5); Eosinophils % (Auto) 1 % (0-10); Hematocrit 43.9 % (41.0-53.0); Hemoglobin 14.2 g/dL (13.5-16.0); Immature Granulocytes % (Auto) 1 % (0-0); Immature Granulocytes Auto 0.05 Thou/mm3 (0.00-0.00); Lymphocytes % (Auto) 10 % (10-50); Mean Corpuscular HGB Conc 32.3 g/dl (31.0-37.0); Mean Corpuscular Hemoglobin 28.5 pg (25.0-35.0); Mean Corpuscular Volume 88 fL (80-100); Monocytes # (Auto) 0.8 Thou/mm3 (0.0-0.8); Monocytes % (Auto) 8 % (0-12); Neutrophils # (Auto) 8.1 Thou/mm3 (1.8-7.7); Neutrophils % (Auto) 80 % (37-80); Nucleated Red Blood Cell % 0 /100 WBC (0); Platelet Count 151 Thou/mm3 (140-440); Red Blood Count 4.99 Miln/mm3 (4.50-5.90); White Blood Count 10.1 Thou/mm3 (3.8-10.6)
[2025-05-01 01:05] LABS: Base Excess -1 (-3-3); HCO3 24 mEq/L (20-26); Inspired Oxygen, FIO2 21 %; O2 Saturation 95 % (91-98); PCO2 41 mmHg (32.0-48.0); PO2 72 mmHg (83-108); pH, Arterial 7.38 (7.35-7.45)
[2025-05-01 01:06] LABS: Sed Rate (ESR) 8 mm/hr (0-20)
[2025-05-01 01:08] LABS: INR 1.3 (0.9-1.3); Partial Thromboplastin Time 28.2 Seconds (22.0-36.0)
[2025-05-01 01:08] LABS: Allen Test Performed/OK; Puncture Site Right Radial
[2025-05-01 01:37] LABS: Alanine Aminotransferase 24 U/L (10-49); Albumin, Serum 3.7 gm/dL (3.4-4.8); Albumin/Globulin Ratio 1.5 (1.2-2.2); Alkaline Phosphatase 99 U/L (46-116); Amylase 36 U/L (30-118); Anion Gap 12 (7-16); Aspartate Amino Transferase 34 U/L (0-34); BUN/Creatinine Ratio 20 Ratio (12-20); Bilirubin,Direct 0.4 mg/dL (0.0-0.3); Bilirubin,Total 0.9 mg/dL (0.3-1.2); Blood Urea Nitrogen 24 mg/dL (9-23); C-Reactive Protein < 0.5 mg/dL (0.0-0.9); Calcium 8.2 mg/dL (8.3-10.6); Calcium (Corrected) 8.4 mg/dL (8.5-10.1); Carbon Dioxide 20.7 mMol/L (20.0-31.0); Chloride 109 mMol/L (98-107); Creatinine (Component) 1.2 mg/dL (0.6-1.3); Estimated Creatinine Clearance 86.1 mL/min (>60); Free T4 (Free Thyroxine) 1.41 ng/dL (0.89-1.76); Globulin 2.5 gm/dL (2.3-3.5); Glucose 140 mg/dL (74-106); Lipase 33 U/L (12-53); Magnesium 1.8 mg/dL (1.6-2.6); Osmolality,Calculated 289 (275-295); Potassium 3.9 mMol/L (3.4-5.1); Procalcitonin 0.08 ng/ml (0.0-0.49); Sodium 142 mMol/L (136-145); Thyroid Stimulating Hormone 1.45 uIU/mL (0.55-4.78); Total Protein 6.2 gm/dL (5.7-8.2); Troponin I < 0.020 ng/mL (0.0-0.045); eGFR > 60 See Note
[2025-05-01 01:38] LABS: B-Type Natriuretic Peptide 3100 pg/mL (0-100)
[2025-05-01 01:45] LABS: Collection Type, Urine Clean Catch
[2025-05-01 02:04] LABS: Amphetamine/Methamp Scrn,U Negative (Negative); Barbiturate Screen,Urine Negative (Negative); Benzodiazepines Screen,Urine Negative (Negative); Benzoylecgonine Screen, Ur Negative (Negative); Fentanyl Screen,Urine Negative (Negative); Opiate Screen,Urine Negative (Negative); THC Screen,Urine Negative (Negative)
[2025-05-01 02:20] LABS: Bilirubin,Urine Negative (Negative); Blood,Urine 2+ (Negative); Color,Urine Yellow (Lt Yel-Yel); Culture Indicated,Urine Contaminated; Glucose, Urine Negative (Negative); Hyaline Casts,Urine 2 /hpf (0-1); Ketones,Urine Negative (Negative); Leukocyte Esterase,Urine Positive (Negative); Nitrite,Urine Negative (Negative); Protein,Urine 3+ (Neg - Trace); RBC,Urine 93 /hpf (0-3); Specific Gravity,Urine 1.026 (1.001-1.035); Squamous Epithelial Cell,Urine 33 /hpf (0-5); WBC,Urine 1035 /hpf (0-5)
[2025-05-01 02:22] LABS: Clarity,Urine Turbid (Clear/Hazy)
--- NOTE | 2025-05-01 02:44 | PRELIM_ITS ---
CT scan of the chest, abdomen and pelvis without intravenous contrast (axial sections with sagittal and coronal reformats) May 01, 2025 0127 hours Clinical History: SOB ABD PAIN Comparison: Reference is made to the prior report dated March 19, 2025 Findings: There is left basilar atelectasis. There are small bilateralpleural effusions new since the prior examination. Nopneumothorax. The thoracic aorta demonstrates atheromatous calcification without evidence of aneurysm.No evidence of mediastinal mass or lymphadenopathy. There is mild cardiomegaly.There is no pericardial effusion. The liver demonstrates a nodular contour, which likely represent cirrhosis. There are hypodensities in the liver too small to characterize. There is small calcified gallstone and dependent hyperdensity, likely represent sludge.The spleen, pancreas, adrenals and kidneys are unremarkable on this noncontrast study. No evidence of bowel obstruction. The appendix is not definitively visualized; however, there is no evidence of inflammatory process in the right lower quadrant to suggest appendicitis..An aortoiliac stent graft is present. A Beal catheter is seen in the urinary bladder.There is mild ascites. There is abdominal wall subcutaneous edema. There are small fat-containing bilateral inguinal hernias. The osseous structures are unremarkable. Impression: Small bilateralpleural effusions, new since the prior examination. Liver cirrhosis. Cholelithiasis. Mild ascites. Other findings as described above. Report Electronically Signed By: Sonido Ryan 05/01/2025 2:43:43 AM [EST]
[2025-05-01] MEDS: cefTRIAXone 1 GM in SODIUM CHLORIDE 0.9% (Popper) 50 ML IV (03:55)
--- NOTE | 2025-05-01 04:02 | PD.RESHP ---
Documentation for date of: 05/01/25 HPI History of Present Illness History of present illness: The patient is a 65-year-old male with medical history of HFrEF, BPH , former user of cocaine (last use 2003), former smoker (30 packs/year quit 2021) who presented to the ED with a chief complaint of shortness of breath and bilateral lower extremity swelling. The patient stopped taking his Lasix for the last 2 weeks, Due to concern for adverse events. The patient was discharged home from hospital recently for CHF exacerbation but has not been established with a neonatal nurse practitioner outpatient as he lives alone and does not have transport available. The patient has been doing bilateral lower extremity edema extending all the way up to his groin, and had difficulty urinating due to scrotal swelling. Denied fever, chest pain, diarrhea, melena, but endorsed cough with sputum and orthopnea. In the ER, EKG showed sinus rhythm with occasional premature complexes, no acute ischemic changes noted. CT abdomen pelvis chest Showed liver cirrhosis, small bilateral pleural effusion, cholelithiasis/ascites. Urinalysis shows UTI. PMH: CHF PSH: Hernia repair at age 12 SH: 58-easo-cdor smoking history, quit 30 years ago. Endorses using cocaine over 30 years ago. Denies alcohol use. Allergies: NKDA Medications: Coreg, Farxiga, Lasix Review of Systems Review of Systems Narrative Review of Systems: General: Denies fevers or chills HEENT: Denies congestion or sore throat Heart: Denies chest pain or palpitations Lungs:Endorses dyspnea and orthopnea Abdomen: Denies diarrhea, nausea, vomiting, constipation, bright red blood per rectum or melena Genitourinary: endorses dysuria, Musculoskeletal: Denies joint pain, denies muscular pain, endorses lower extremity swelling. Neurology: Denies any numbness, tingling Review of systems otherwise negative except what is mentioned above. Exam Vital Signs Temp Pulse Resp BP Pulse Ox O2 Del Method 98.2 F 85 16 124/82 97 Room Air 05/01/25 01:52 05/01/25 03:07 05/01/25 03:07 05/01/25 03:07 05/01/25 03:07 05/01/25 03:07 Narrative Exam General: AOx3, cooperative Skin: Intact, no cyanosis, 3+ pedal edema with erythema, extending upto lower abdomen and scrotum, blisters on planter aspect bilaterally. HEENT: Atraumatic/normocephalic, CYNTHIA, neck supple Heart: RRR, S1 and S2 without clicks or murmurs Lungs: Mild basal crackles on auscultation bilaterally, no difficulty breathing Abdomen: Soft, nontender. Bowel sounds present . Vascular: Peripheral pulses palpable Neuro: No focal neurological deficits noted. Results: Labs 05/01/25 00:20 05/01/25 00:20 Labs: Short CBC 05/01/25 Range/Units 00:20 WBC 10.1 (3.8-10.6) Thou/mm3 Hgb 14.2 (13.5-16.0) g/dL Hct 43.9 (41.0-53.0) % Plt Count 151 (140-440) Thou/mm3 BMP 05/01/25 00:20 Sodium 142 Potassium 3.9 Chloride 109 H Carbon Dioxide 20.7 BUN 24 H Creatinine 1.2 Glucose 140 H Calcium 8.2 L Cardiac Enzymes 05/01/25 Range/Units 00:20 Troponin I < 0.020 (0.0-0.045) ng/mL Liver Function 05/01/25 Range/Units 00:20 Total Bilirubin 0.9 (0.3-1.2) mg/dL Direct Bilirubin 0.4 H (0.0-0.3) mg/dL AST 34 (0-34) U/L ALT 24 (10-49) U/L Alkaline Phosphatase 99 (46-116) U/L Albumin 3.7 (3.4-4.8) gm/dL Urine 05/01/25 Range/Units 01:35 Urine Color Yellow (Lt Yel-Yel) Urine Clarity Turbid A (Clear/Hazy) Urine pH 6.0 (5.0-7.0) Ur Specific [place] 1.026 (1.001-1.035) Urine Protein 3+ A (Neg - Trace) Urine Glucose (UA) Negative (Negative) ABG Interpretation ABG results: 05/01/25 00:59 ABG pH 7.38 ABG pCO2 41 ABG pO2 72 L ABG HCO3 24 ABG O2 Saturation 95 ABG Base Excess -1 Quality Measures Quality Measures none Medications Home Medications and Allergies Home Medications ?Medication ?Instructions ?Recorded ?Confirmed ?Type cholecalciferol (vitamin D3) 50 50 mcg PO DAILY 03/15/25 03/15/25 History mcg (2,000 unit) tablet docusate sodium 100 mg capsule 100 mg PO BID 03/15/25 03/15/25 History tamsulosin 0.4 mg capsule 0.4 mg PO DAILY 03/15/25 03/15/25 History Allergies Allergy/AdvReac Type Severity Reaction Status Date / Time doxycycline Allergy Intermediate Dizziness Verified 03/16/25 11:02 Visit Medications Acetaminophen (Acetaminophen 325 Mg Tablet) 650 mg PO Q6H PRN PRN Reason: PAIN OR FEVER > 101 Stop: 05/31/25 03:41 Aspirin (Aspirin Ec 81 Mg Tabec) 81 mg PO QDAY [facility] Stop: 05/31/25 08:59 Atorvastatin Calcium (Atorvastatin Calcium 20 Mg Tablet) 40 mg PO HS [facility] Stop: 05/31/25 20:59 Bumetanide (Bumetanide Inj 0.25 Mg/Ml Vial 4 Ml) 2 mg IVP BID CHYNA Stop: 05/31/25 08:59 Carvedilol (Carvedilol 3.125 Mg Tablet) 3.125 mg PO BIDWM CHYNA Stop: 05/31/25 07:59 Ceftriaxone Sodium 1 gm/ (Sodium Chloride) 50 mls @ 100 mls/hr IV X1 ONE Stop: 05/01/25 04:03 Last Admin: 05/01/25 03:55 Dose: 100 mls/hr Ceftriaxone Sodium/Dextrose (Rocephin/D5w 1gm Iv Premix) 1 gm in 50 mls @ 100 mls/hr IV QDAY [facility] Stop: 05/08/25 08:59 Losartan Potassium (Losartan Potassium 25 Mg Tablet) 25 mg PO QDAY [facility] Stop: 05/31/25 08:59 Ondansetron HCl (Ondansetron Inj 2 Mg/Ml Inj 2 Ml) 4 mg IV Q6H PRN; Protocol PRN Reason: NAUSEA OR VOMITING Stop: 05/31/25 03:41 Sennosides (Senna Tablet) 2 tab PO BID PRN; Protocol PRN Reason: CONSTIPATION Stop: 05/31/25 03:41 Discontinued Medications Furosemide (Furosemide Inj 10 Mg/Ml 4ml Vial) 80 mg IVP X1 ONE Stop: 05/01/25 00:12 Last Admin: 05/01/25 00:26 Dose: 80 mg Ceftriaxone Sodium/Dextrose (Rocephin/D5w 1gm Iv Premix) 1 g in 50 mls @ 100 mls/hr IV X1 ONE Stop: 05/01/25 03:04 Last Admin: 05/01/25 03:33 Dose: Not Given Ceftriaxone Sodium 1 gm/ (Sodium Chloride) 50 mls @ 100 mls/hr IV Q12HR [facility] Stop: 05/08/25 03:31 Last Admin: 05/01/25 03:35 Dose: Not Given Morphine Sulfate (Morphine Sulf Inj 10 Mg/Ml Vial) 2 mg IVP X1 ONE Stop: 05/01/25 00:12 Last Admin: 05/01/25 00:26 Dose: 2 mg Nitroglycerin (Nitroglycerin Oint 2% 1 Inch Packet) 2 inch TOP X1 ONE Stop: 05/01/25 00:12 Last Admin: 05/01/25 00:28 Dose: 2 inch Assessment & Plan Plan The patient is a 65-year-old male with medical history of HFrEF, BPH , former user of cocaine (last use 2003), former smoker (30 packs/year quit 2021) who presented to the ED with a chief complaint of shortness of breath and bilateral lower extremity swelling. The patient stopped taking his Lasix for the last 2 weeks, Due to concern for adverse events. The patient was discharged home from hospital recently for CHF exacerbation but has not been established with a neonatal nurse practitioner outpatient as he lives alone and does not have transport available. The patient has been doing bilateral lower extremity edema extending all the way up to his groin, and had difficulty urinating due to scrotal swelling. Denied fever, chest pain, diarrhea, melena, but endorsed cough with sputum and orthopnea. In the ER, EKG showed sinus rhythm with occasional premature complexes, no acute ischemic changes noted. CT abdomen pelvis chest Showed liver cirrhosis, small bilateral pleural effusion, cholelithiasis/ascites. Urinalysis shows UTI. #Acute CHF exacerbation DDx; Dilated cardiomyopathy vs ischemic cardiomyopathy Non compliance with medications, Given IV lasix 80mg x1, Beal catheter in place, adequate urine output, - iv bumex 2mg bid , target 2-2.5L urine output per day. - continue Coreg 3.125 mg bid - introduce GDMT as tolerated - Aspirin 81 mg qday - Atorvastatin 40mg qhs #Decompensated Cirrhosis Pt reported no prior history of cirrhosis, - US abdomen - viral hepatitis panel #Concern for Cellutlits #UTI - IV ceftriaxone 1g qday - follow microbiology results Disposition: Tele DVT prophylaxis: Heparin subcut GI prophylaxis: nonce Diet:cardiac, fluid restriction 1000 cc Lines: PIV CODE STATUS: Full Assessment and plan discussed with my attending physician Dr. Lissette Azul (PGY-2) Attending Provider Attestation/Addendum I have examined the patient, reviewed labs and imaging findings, discussed the case with the resident(s), and reviewed entered orders. I agree with the plan of care as outlined in this note, with these additional summaries/recommendations: After examination of the patient and review of the clinical data, I feel that this patient needs admission to the hospital for further treatment and evaluation. Patient is a 65-year-old male with a medical history of HFrEF (20-25%), liver disease, primary hypertension, BPH, vitamin D deficiency, and former smoker who presents to [facility] [place] emergency department on 05/01/2025 with chief complaint of shortness of breath and lower extremity swelling. Patient diagnosed with acute CHF exacerbation. Previous echocardiogram shows ejection fraction of 20 to 25%. Patient endorses dyspnea, orthopnea, and weight gain. 3+ bilateral lower extremity edema up into the abdomen. BNP 3100. Start preload reduction with IV Bumex and fluid restriction. Beal catheter in place and monitor urinary output closely. Strict I's and O's. Cardiac diet. Start VELMA/ARB for afterload reduction. Continue home Coreg for neurohormonal blockade. Will resume Farxiga once more improved. Patient will need counseling on medication compliance. Likely would benefit from the addition of spironolactone at a later date. Patient will need 6 months of maximum goal-directed medical therapy to qualify for ICD placement. He also needs to establish outpatient cardiology. Imaging study also showed cirrhosis although no evidence of synthetic liver dysfunction and we will monitor for now. Follow-up outpatient. We will order hepatitis panel given patient's remote history of substance abuse. Patient appears to have lower extremity cellulitis and urinary tract infection. Urine culture taken. Start IV Rocephin. Patient updated on the plan and in agreement. All questions answered to satisfaction. Please see residents note for additional details and management. Dr. Lissette MD
--- NOTE | 2025-05-01 04:34 | XR_ITS ---
Examination: Duplex scan of the lower extremity bilateral Date and time of exam: May 01, 2025 0940 hours INDICATIONS: Right leg swelling and pain today Technique: Duplex scan of the extremity veins using B-mode/grayscale imaging and Doppler spectral analysis and color flow Attention is directed to internal echogenicity, compression and augmentation involving these veins, color flow assessment, spectral analysis Findings: Major deep venous structures in the extremity demonstrate normal course and caliber. There is no evidence of deep vein thrombosis. Normal color flow and spectral analysis Impression: Negative for DVT..
--- NOTE | 2025-05-01 04:42 | XR_ITS ---
Examination: Abdomen sonogram, complete Date and time of exam: May 01, 2025 at 0924 hours INDICATIONS: Diagnosis cirrhosis. Technique: Multiple real-time grayscale transabdominal sonographic images of the abdomen have been obtained. Findings: Multiple gallstones, gallbladder wall is thickened 0.6 cm Common bile duct 0.7 cm no stones Pancreas obscured by bowel gas Aorta not enlarged There is 16.4 cm irregular contour fatty infiltration mild ascites Normal hepatopedal portal venous flow Patent IVC Right kidney 10.1 cm renal cortex 1.9 cm Left kidney 9.2 cm cortex 2.1 cm Moderate renal parenchymal scar formation 7 mm lower pole left renal calculus Spleen 10.4 cm IMPRESSION: Cholelithiasis Abnormal thickening of the gallbladder wall 0.6 cm, consider HIDA scan or MRCP follow-up Common bile duct 0.7 cm no stones Cirrhosis, fatty infiltration Mild ascites 7 mm lower pole nonobstructing left renal calculus
[2025-05-01] MEDS: HEPARIN SOD INJ 5000 UNIT/ML VIAL SC ×3 (05:35→20:59)
[2025-05-01 06:41] LABS: Basophils # (Auto) 0.1 Thou/mm3 (0.0-0.2); Basophils % (Auto) 1 % (0-2.5); Eosinophils # (Auto) 0.1 Thou/mm3 (0.0-0.5); Eosinophils % (Auto) 1 % (0-10); Hematocrit 42.3 % (41.0-53.0); Immature Granulocytes % (Auto) 0 % (0-0); Immature Granulocytes Auto 0.03 Thou/mm3 (0.00-0.00); Lymphocytes # (Auto) 1.2 Thou/mm3 (1.0-4.8); Lymphocytes % (Auto) 13 % (10-50); Mean Corpuscular HGB Conc 33.1 g/dl (31.0-37.0); Mean Corpuscular Hemoglobin 28.4 pg (25.0-35.0); Mean Corpuscular Volume 86 fL (80-100); Monocytes # (Auto) 0.9 Thou/mm3 (0.0-0.8); Monocytes % (Auto) 9 % (0-12); Neutrophils # (Auto) 7.2 Thou/mm3 (1.8-7.7); Neutrophils % (Auto) 76 % (37-80); Nucleated Red Blood Cell % 0 /100 WBC (0); Platelet Count 136 Thou/mm3 (140-440); RDW Standard Deviation 48.4 fL (35.1-43.9); Red Blood Count 4.93 Miln/mm3 (4.50-5.90); White Blood Count 9.5 Thou/mm3 (3.8-10.6)
[2025-05-01 06:59] LABS: INR 1.3 (0.9-1.3); Prothrombin Time 13.7 Seconds (9.0-12.2)
[2025-05-01 07:17] LABS: Alanine Aminotransferase 24 U/L (10-49); Albumin, Serum 3.7 gm/dL (3.4-4.8); Alkaline Phosphatase 89 U/L (46-116); Anion Gap 12 (7-16); Aspartate Amino Transferase 32 U/L (0-34); BUN/Creatinine Ratio 19 Ratio (12-20); Bilirubin,Direct 0.4 mg/dL (0.0-0.3); Blood Urea Nitrogen 23 mg/dL (9-23); Calcium 8.4 mg/dL (8.3-10.6); Carbon Dioxide 28.3 mMol/L (20.0-31.0); Cardiac Risk Estimate 3.8 RATIO (4.0-6.7); Chloride 105 mMol/L (98-107); Cholesterol 127 mg/dL (132-200); Creatinine (Component) 1.2 mg/dL (0.6-1.3); Estimated Creatinine Clearance 86.1 mL/min (>60); Glucose 96 mg/dL (74-106); HDL Cholesterol 33 mg/dL (40-60); LDL Cholesterol,Calculated 81 mg/dL (0-130); Magnesium 1.8 mg/dL (1.6-2.6); Osmolality,Calculated 292 (275-295); Phosphorous 4.1 mg/dL (2.4-5.1); Potassium 3.5 mMol/L (3.4-5.1); Sodium 145 mMol/L (136-145); Total Protein 6.3 gm/dL (5.7-8.2); Triglycerides 67 mg/dL (30-150); eGFR > 60 See Note
[2025-05-01] MEDS: BUMETANIDE INJ 0.25 MG/ML VIAL 4 ML 2 MG IVP (09:32)
[2025-05-01] MEDS: LOSARTAN POTASSIUM 25 MG TABLET PO (09:32)
[2025-05-01] MEDS: TAMSULOSIN HCL 0.4 MG CAPSULE PO (09:32)
[2025-05-01] MEDS: carVEDILOL 3.125 MG TABLET PO ×2 (09:32→17:08)
[2025-05-01] MEDS: ASPIRIN EC 81 MG TABEC PO (09:32)
[2025-05-01] MEDS: cefTRIAXone/D5w 1gm IV premix 1 GM/50 ML BAG IV (09:33)
[2025-05-01] MEDS: POTASSIUM CHLORIDE 10% 20 MEQ/15 ML UDC PO (09:42)
[2025-05-01] MEDS: Magnesium Sulfate 2 GM Ivpb 2 GM/50 ML BAG IV (10:03)
--- NOTE | 2025-05-01 11:46 | ESPR_ITS ---
<Statement entered by Aaliyah Lanier MD - 05/01/25 15:39> Patient was seen and examined by me personally. I have directly supervised and reviewed documentation by the team resident and agree with its findings with any exceptions or additional findings as below. Plan of care was discussed with the attending, Dr. Morgan. New overnight admission. Mr. King is a 65-year-old male with past medical history of HFrEF (20-30%), BPH, former user of cocaine (last use 2003), former smoker (30 packs/year quit 2021) who presented to the ED 04/30/2025 with shortness of breath and bilateral lower extremity swelling. Patient was subsequently admitted for further management of CHF exacerbation. There was concern for medication non-compliance, patient self-discontinued Lasix. Today the patient is awake and conversational, has no specific complaints. Labs and vitals stable and patient saturating on room air. There is still significant bilateral pitting edema, 3+. Patient has had output of 2.5 L in the last 24 hours. Cardiology was consulted to establish care with Cardiology. Lower extremities appear erythematous, started cephalexin 1000 mg TID for possible cellulitis. Also CT chest/abd/pelvis from admission had shown severe narrowing of left common iliac artery, does have history of endoluminal aortoiliac stent, ordered bilateral arterial duplex of lower extremities. Blood cultures pending, urine culture pending. Will continue with diuresis. Aaliyah Lanier, PGY-2 Documentation for date of: 05/01/25 Subjective Subjective Interval history: Patient seen and examined at bedside. Will continue diuresis with IV Bumex. Will continue Coreg and losartan. Consulted cardiology to establish care. Patient will be transition to Keflex p.o. for cellulitis management. Hepatitis panel pending, abdominal ultrasound pending. CT chest abdomen pelvis shows severe narrowing left common iliac, patient does have a aortic iliac stent. Ordered arterial duplex Exam Vital Signs Temp Pulse Resp BP Pulse Ox O2 Del Method 97.3 F 84 20 123/82 94 L Room Air 05/01/25 07:34 05/01/25 10:11 05/01/25 10:11 05/01/25 09:32 05/01/25 07:34 05/01/25 07:34 Narrative Exam General: AOx3, cooperative Skin: Intact, no cyanosis, 3+ pedal edema with erythema, extending upto lower abdomen and scrotum, blisters on planter aspect bilaterally. HEENT: Atraumatic/normocephalic, CYNTHIA, neck supple Heart: RRR, S1 and S2 without clicks or murmurs Lungs: Mild basal crackles on auscultation bilaterally, no difficulty breathing Abdomen: Soft, nontender. Bowel sounds present . Vascular: Peripheral pulses palpable Neuro: No focal neurological deficits noted. Objective Labs 05/02/25 04:15 05/02/25 04:15 Labs: Laboratory Results - last 24 hr 05/01/25 05/01/25 05/01/25 00:20 00:59 01:35 WBC 10.1 RBC 4.99 Hgb 14.2 Hct 43.9 MCV 88 MCH 28.5 MCHC 32.3 RDW Std Deviation 49.0 H Plt Count 151 Neut % (Auto) 80 Lymph % (Auto) 10 [place] % (Auto) 8 Eos % (Auto) 1 Baso % (Auto) 1 Neut # (Auto) 8.1 H Lymph # (Auto) 1.0 [place] # (Auto) 0.8 Eos # (Auto) 0.1 Baso # (Auto) 0.1 Immature Gran # (Auto) 0.05 H Absolute Nucleated RBC 0.00 Immature Gran % 1 H Nucleated RBC % 0 ESR 8 PT 14.0 H INR 1.3 APTT 28.2 Puncture Site Right Radial ABG pH 7.38 ABG pCO2 41 ABG pO2 72 L ABG HCO3 24 ABG O2 Saturation 95 ABG Base Excess -1 FiO2 21 Sodium 142 Potassium 3.9 Chloride 109 H Carbon Dioxide 20.7 Anion Gap 12 BUN 24 H Creatinine 1.2 Estim Creat Clear Calc 86.1 eGFR > 60 BUN/Creatinine Ratio 20 Glucose 140 H Calculated Osmolality 289 Lactic Acid 1.4 Calcium 8.2 L Corrected Calcium 8.4 L Phosphorus Magnesium 1.8 Total Bilirubin 0.9 Direct Bilirubin 0.4 H AST 34 ALT 24 Alkaline Phosphatase 99 Troponin I < 0.020 C-Reactive Prot, Quant < 0.5 B-Natriuretic Peptide 3100 H* Total Protein 6.2 Albumin 3.7 Globulin 2.5 Albumin/Globulin Ratio 1.5 Triglycerides Cholesterol LDL Cholesterol, Calc HDL Cholesterol Cholesterol/HDL Ratio Amylase 36 Lipase 33 Procalcitonin 0.08 TSH 1.45 Free T4 1.41 Ur Collection Type Clean Catch Urine Color Yellow Urine Clarity Turbid A Urine pH 6.0 Ur Specific [place] 1.026 Urine Protein 3+ A Urine Glucose (UA) Negative Urine Ketones Negative Urine Blood 2+ A Urine Nitrite Negative Urine Bilirubin Negative Urine Urobilinogen (Auto) 2.0 Ur Leukocyte Esterase Positive Urine RBC 93 H Urine WBC 1035 H Ur Squamous Epith Cells 33 H Urine Bacteria None Hyaline Casts 2 H Ur Culture Indicated? Contaminated Urine Opiates Screen Negative Urine Fentanyl Screen Negative Ur Barbiturates Screen Negative U Amphetamin/Meth Scrn Negative U Benzodiazepines Scrn Negative U Cocaine Metab Screen Negative U Marijuana (THC) Screen Negative 05/01/25 04:50 WBC 9.5 RBC 4.93 Hgb 14.0 Hct 42.3 MCV 86 MCH 28.4 MCHC 33.1 RDW Std Deviation 48.4 H Plt Count 136 L Neut % (Auto) 76 Lymph % (Auto) 13 [place] % (Auto) 9 Eos % (Auto) 1 Baso % (Auto) 1 Neut # (Auto) 7.2 Lymph # (Auto) 1.2 [place] # (Auto) 0.9 H Eos # (Auto) 0.1 Baso # (Auto) 0.1 Immature Gran # (Auto) 0.03 H Absolute Nucleated RBC 0.00 Immature Gran % 0 Nucleated RBC % 0 ESR PT 13.7 H INR 1.3 APTT Puncture Site ABG pH ABG pCO2 ABG pO2 ABG HCO3 ABG O2 Saturation ABG Base Excess FiO2 Sodium 145 Potassium 3.5 Chloride 105 Carbon Dioxide 28.3 Anion Gap 12 BUN 23 Creatinine 1.2 Estim Creat Clear Calc 86.1 eGFR > 60 BUN/Creatinine Ratio 19 Glucose 96 Calculated Osmolality 292 Lactic Acid Calcium 8.4 Corrected Calcium Phosphorus 4.1 Magnesium 1.8 Total Bilirubin 1.0 Direct Bilirubin 0.4 H AST 32 ALT 24 Alkaline Phosphatase 89 Troponin I C-Reactive Prot, Quant B-Natriuretic Peptide Total Protein 6.3 Albumin 3.7 Globulin Albumin/Globulin Ratio Triglycerides 67 Cholesterol 127 L LDL Cholesterol, Calc 81 HDL Cholesterol 33 L Cholesterol/HDL Ratio 3.8 L Amylase Lipase Procalcitonin TSH 1.20 Free T4 Ur Collection Type Urine Color Urine Clarity Urine pH Ur Specific [place] Urine Protein Urine Glucose (UA) Urine Ketones Urine Blood Urine Nitrite Urine Bilirubin Urine Urobilinogen (Auto) Ur Leukocyte Esterase Urine RBC Urine WBC Ur Squamous Epith Cells Urine Bacteria Hyaline Casts Ur Culture Indicated? Urine Opiates Screen Urine Fentanyl Screen Ur Barbiturates Screen U Amphetamin/Meth Scrn U Benzodiazepines Scrn U Cocaine Metab Screen U Marijuana (THC) Screen ABG Interpretation ABG results: 05/01/25 00:59 ABG pH 7.38 ABG pCO2 41 ABG pO2 72 L ABG HCO3 24 ABG O2 Saturation 95 ABG Base Excess -1 Quality Measures Quality Measures none Assessment & Plan Assessment Current Active Medications: Generic Name Dose Route Start Last Admin Trade Name Freq PRN Reason Stop Dose Admin Acetaminophen 650 mg 05/01/25 03:42 Acetaminophen 325 Mg Tablet PO 05/31/25 03:41 Q6H PRN PAIN OR FEVER > 101 Aspirin 81 mg 05/01/25 09:00 05/01/25 09:32 Aspirin Ec 81 Mg Tabec PO 05/31/25 08:59 81 mg QDAY CHYNA Administration Atorvastatin Calcium 40 mg 05/01/25 21:00 Atorvastatin Calcium 20 Mg Tablet PO 05/31/25 20:59 HS CHYNA Bumetanide 2 mg 05/01/25 09:00 05/01/25 09:32 Bumetanide Inj 0.25 Mg/Ml Vial 4 Ml IVP 05/31/25 08:59 2 mg BID CHYNA Administration Carvedilol 3.125 mg 05/01/25 08:00 05/01/25 09:32 Carvedilol 3.125 Mg Tablet PO 05/31/25 07:59 3.125 mg BIDWM CHYNA Administration Cephalexin HCl 1,000 mg 05/02/25 08:00 Cephalexin 250 Mg Capsule PO 05/09/25 07:59 TID CHYNA Heparin Sodium (Porcine) 5,000 unit 05/01/25 06:00 05/01/25 05:35 Heparin Sod Inj 5000 Unit/Ml Vial SC 05/15/25 05:59 5,000 unit Q8HR CHYNA Administration Losartan Potassium 25 mg 05/01/25 09:00 05/01/25 09:32 Losartan Potassium 25 Mg Tablet PO 05/31/25 08:59 25 mg QDAY CHYNA Administration Ondansetron HCl 4 mg 05/01/25 03:42 Ondansetron Inj 2 Mg/Ml Inj 2 Ml IV 05/31/25 03:41 Q6H PRN NAUSEA OR VOMITING Protocol Sennosides 2 tab 05/01/25 03:42 Senna Tablet PO 05/31/25 03:41 BID PRN CONSTIPATION Protocol Tamsulosin HCl 0.4 mg 05/01/25 09:00 05/01/25 09:32 Tamsulosin Hcl 0.4 Mg Capsule PO 05/31/25 08:59 0.4 mg QDAY CHYNA Administration Plan Mr King is a 65-year-old male with medical history of HFrEF, BPH , former user of cocaine (last use 2003), former smoker (30 packs/year quit 2021) who presented to the ED with a chief complaint of shortness of breath and bilateral lower extremity swelling. The patient stopped taking his Lasix for the last 2 weeks, Due to concern for adverse events. The patient was discharged home from hospital recently for CHF exacerbation but has not been established with a insulator cutter and former outpatient as he lives alone and does not have transport available. The patient has been doing bilateral lower extremity edema extending all the way up to his groin, and had difficulty urinating due to scrotal swelling. Denied fever, chest pain, diarrhea, melena, but endorsed cough with sputum and orthopnea. #Acute decompensated heart failure #Heart failure with reduced ejection fraction, EF 20 to 30% #Mild to moderate AV stenosis #Combined systolic and diastolic heart failure Non compliance with medications, Given IV lasix 80mg x1, Beal catheter in place, adequate urine output, patient had about 2.5 L urine output in the last 24 hours since admission. Echocardiogram March 2025 shows Dialated cardiomyopathy. Dilated LV. Severe systolic dysfunction. Severe global hypokinesis. Estimated EF 20-30% %. Grade 2 diastolic dysfunction. Mild RV dilatation. Mild RV systolic dysufnction. Mild to modertae AV stenosis. Low gradient due to low EF. Mean PG 12-14 mm hg but JE aroind 1.1 to 1.2 sq cm which indicates at least moderate stenosis. Mild MAC. Mild MR. Mild TR. Trace AI. Mildly dilated LA volume 40.5 mL/m?. Plan: - IV bumex 2mg bid , target 2-2.5L urine output per day. - Continue Coreg 3.125 mg bid - Continue losartan 25 mg daily - introduce further GDMT as tolerated - Aspirin 81 mg qday - Atorvastatin 40mg qhs - Consulted cardiology, appreciate recommendations #?Peripheral arterial disease Patient has aortoiliac stent, does complain of left leg pain on and off, does have underlying cellulitis CT chest abdomen pelvis shows severe narrowing left common iliac, patient does have a aortic iliac stent. Bilateral pedal pulses palpated, no evidence of limb ischemia Plan: - Follow arterial duplex - Continue outpatient follow-up with vascular surgery #Decompensated Cirrhosis Pt reported no prior history of cirrhosis -Follow CMP daily - US abdomen - viral hepatitis panel #Cellutlits Received 2 doses of IV ceftriaxone 1g qday Urinalysis shows contamination, squamous epithelial cells more than 20 - Will start patient on Keflex p.o. - Monitor for signs of sepsis #BPH - Continue home dose tamsulosin #Hyperlipidemia - Continue atorvastatin 40 mg twice Disposition: Telemetry DVT prophylaxis: Heparin subcut GI prophylaxis: none Diet:cardiac, fluid restriction 1000 cc Lines: PIV CODE STATUS: Full Code Case discussed with Attending Dr. Morgan and Dr. Lanier PGY2. Dennis Sargent PGY1 Disclaimer: This note was dictated by speech recognition. Minor errors in therapy coordinator may be present due to voice recognition software. Attending Provider Attestation/Addendum Face to face evaluation was performed by me. I have personally seen and examined the patient. I discussed the assessment and plan with the entire medicine team. I reviewed available medical records, imaging studies, laboratory results. I agree with the above subjective data, objective findings, assessment and plan except as corrected by me or noted below Acute on chronic systolic heart failure decompensated Left lower extremity cellulitis with edema/erythema/tenderness bilateral lower extremity edema 3+?4+ Volume overload History of BPH IV diuresis, cardiology consult, echo - - IV antibiotics ceftriaxone to cover empiric cellulitis?will switch to p.o. regimen likely Keflex. - Monitor labs and vitals, glucose closely evaluation will need physical therapy DVT prophylaxis More than > 30 minutes spent on the encounter
--- NOTE | 2025-05-01 12:06 | XR_ITS ---
Examination: Arterial duplex lower extremity study. Date and time of exam: May 01, 2025: 29 hours INDICATIONS: Onset of right leg swelling and pain today Findings: Duplex sonographic imaging of the lower extremity arteries using B-mode/Morse scale imaging and Doppler spectral analysis and color flow. Ankle brachial indices have been recorded. Right common femoral artery demonstrates triphasic flow. Right superficial femoral artery demonstrates biphasic flow. Right popliteal artery demonstrates biphasic flow. Right posterior tibial artery demonstrated monophasic flow. Right ankle/brachial index is 1.1. Left common femoral artery demonstrates monophasic flow. Left superficial femoral artery demonstrates monophasic flow. Left popliteal artery demonstrates monophasic flow. Left posterior tibial artery demonstrated monophasic flow. Left ankle/brachial index is 1.0. Impression: Normal ankle brachial indices, no significant obstructive arterial disease
--- NOTE | 2025-05-01 14:27 | ESCONSULT_ITS ---
HPI Data of Consult Requesting Physician: Kapil Morgan MD Admitting Provider: Misael Mclaughlin MD Attending Provider: Kapil Morgan MD Primary Care Provider: Physician No Primary/Family Consult Narrative History of present illness: CC: Leg swelling and shortness of breath Patient is a 65-year-old male with a past medical history of CHF HFrEF 25 to 30% (03/15/2025), former history of cocaine use disorder, and past medical history cigarette use, who presented with a chief complaint of lower swelling and increased shortness of breath. Patient stated he stopped taking his medication for about 2 weeks secondary to increased anxiety in regards to side effects, patient was unable to clearly define concern. Increased shortness of breath upon ambulation, requiring patient to sleep in a sitting position, and shortness of breath wakes him up from sleep. Increased shortness of breath with ambulation. Patient describes symptoms related to orthopnea and paroxysmal nocturnal dyspnea. Denied palpitations. Patient denied chest pain or syncopal event. Patient denied recent history of sick contacts. Denied pyrexia at home. Denied past history of COPD. Denied worsening cough. Patient decided to seek further medical attention from the ER as swelling increased into lower quadrant abdomen and increased scrotal edema noted prior to admission. ER Course: Vitals: BP 123/83, HR 97, RR 24, T 98.3, spO2 94% RA CBC: WBC 10.1, Hgb 14.2, Hct 43.9, MCV 88 PT 14.0, INR 1.3, PTT 28.2 ABG: pH 7.38, pCO2 41, pO2 72 L, HCO3 24 CMP: NA 142, K 3.9, Chloride 109, CO2 20.7, BUN 24, CR 1.2, GFR 60, Glucose 140 Anion gap 12, Lactic Acid 1.4, Ca 8.4, MAG 1.8, AST 34, ALT 24, Total Bili 0.9 Troponin <0.5, BNP 3100 TSH 1.45 UA: Contaminated Utxo: Negative EKG: MAT and PVCs, HR 100, Deep Qwaves noted on V1, V2 with T wave inversion in leads V1, AVF, LV hypertrophy, NO ST elevation noted. CT abdomen pelvis chest Showed liver cirrhosis, small bilateral pleural effusion, cholelithiasis/ascites. 05/01/2025: Patient complaining of worsening lower pedal edema to upper thigh, concern for anasarca, as patient reported increased swelling to abdomen at home. Patient stated that lower pedal edema worsened over the past few days even extending to lower abdomen. Positive for paroxysmal nocturnal dyspnea and Orthopnea. Patient sleeps in sitting position.Patient was anxious about taking his lasix/water pills and stopped use. Patient unable to verbalize specifically about the lasix made him nervous. Per patient history increase in weight over the past few weeks from 250 lbs to 275 lbs. Patient lives alone at home. Intake 2020/ Out 7800/ Net -5780 Best Weight on record: 104.95 kg, Current weight 120.304 Kg PMH: CHFHFrEF Past Surgical History: Hernia Repair Amputation of 2 digit, left lower extremity Past Family History: No contact to paternal father, still living Maternal parent still living, denied cardiac history Home Medication: Carvedilol 3.125 mg PO BIDWM Furosemide 40 mg QDay, stopped medication on his own secondary to anxiety Dapagliflozin 10 mg Qday Losartan 25 mg Qday Tamsulosin 0.4 mg Qday Social History: Denied Alcohol Use Cocaine Substance Use Disorder Smoking history 10 years (1 pack a day)-->10 year pack history (?), previously noted to have 30 pack year history 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 NO Hoarseness, NO sore throat, NO swollen neck. Cardiac: NO Palpitations, YES dyspnea on exertion, YES orthopnea, NO paroxysmal nocturnal dyspnea, YES edema Respiratory: NO Shortness of Breath, NO Wheezing, NO Cough, NO Sputum, NO hemoptysis GI:NO appetite, NO nausea, NO vomiting, NO dysphagia, NO changes in bowel frequency, NO stool color, NO diarrhea, NO constipation, NO hemetemesis, NO hemorrhoids, NO melena, NO hematechezia, NO abdominal pain, NO jaundice Renal: NO frequency, NO hesitancy, NO urgency, NO hematuria, NO nocturia, NO incontinence MSK: NO muscle weakness, NO gout, NO arthritis, NO muscle stiffness Neuro: NO headaches, NO tremors, NO weakness, NO paralysis, NO seizures, NO loss of consciousness, NO numbness. Hem: NO anemia, NO easy bruising/bleeding, NO petechiae, NO purpura Endo: NO heat/cold intolerance, NO excessive sweating, NO polyuria, NO polydipsia, NO polyphagia, NO thyroid problems, NO diabetes Pysch: NO mood, NO anxiety, NO depression Exam Vital Signs Temp Pulse Resp BP Pulse Ox O2 Del Method 97.3 F 90 20 108/81 96 Room Air 05/01/25 12:00 05/01/25 12:00 05/01/25 12:00 05/01/25 12:00 05/01/25 12:05/01/25 12:00 Narrative Exam General Appearance: Alert & Oriented X3, well-nourished male who is lying in bed in no acute distress HEENT: Skull symmetrical and atraumatic. Conjunctivae pink and moist. Pupils equal, round, reactive to light and accommodation (PERRL). External ear without lesion or discharge. Straight, nares patient, mucosa pink, no discharge. Cardio: Normal Rate and Rhythm with S1 and S2 heart sounds, distant heart sounds. Heart sounds difficult to appreciate, possible holosystolic murmur and bruit on carotid auscultation. Pedal Edema +4. No scrotal edema noted. Lungs: Symmetric with good expansion. Chest and back non-tender. Decreased vesicular breath sounds Abdomen: Non-tender, Non-distended, Normal Reactive Bowel Sounds Neuro: Alert, cooperative, oriented to person, place, and time. Speech clear. CN grossly intact. Upper motor strength 5/5 and Lower motor strength 5/5. Sensation intact. Results Labs 05/01/25 04:50 05/01/25 04:50 Labs: Short CBC 05/01/25 05/01/25 Range/Units 00:20 04:50 WBC 10.1 9.5 (3.8-10.6) Thou/mm3 Hgb 14.2 14.0 (13.5-16.0) g/dL Hct 43.9 42.3 (41.0-53.0) % Plt Count 151 136 L (140-440) Thou/mm3 BMP 05/01/25 05/01/25 00:20 04:50 Sodium 142 145 Potassium 3.9 3.5 Chloride 109 H 105 Carbon Dioxide 20.7 28.3 BUN 24 H 23 Creatinine 1.2 1.2 Glucose 140 H 96 Calcium 8.2 L 8.4 Cardiac Enzymes 05/01/25 Range/Units 00:20 Troponin I < 0.020 (0.0-0.045) ng/mL Liver Function 05/01/25 05/01/25 Range/Units 00:20 04:50 Total Bilirubin 0.9 1.0 (0.3-1.2) mg/dL Direct Bilirubin 0.4 H 0.4 H (0.0-0.3) mg/dL AST 34 32 (0-34) U/L ALT 24 24 (10-49) U/L Alkaline Phosphatase 99 89 (46-116) U/L Albumin 3.7 3.7 (3.4-4.8) gm/dL Urine 05/01/25 Range/Units 01:35 Urine Color Yellow (Lt Yel-Yel) Urine Clarity Turbid A (Clear/Hazy) Urine pH 6.0 (5.0-7.0) Ur Specific [place] 1.026 (1.001-1.035) Urine Protein 3+ A (Neg - Trace) Urine Glucose (UA) Negative (Negative) ABG Interpretation ABG results: 05/01/25 00:59 ABG pH 7.38 ABG pCO2 41 ABG pO2 72 L ABG HCO3 24 ABG O2 Saturation 95 ABG Base Excess -1 Quality Measures Quality Measures none Medications Home Medications and Allergies Home Medications ?Medication ?Instructions ?Recorded ?Confirmed ?Type tamsulosin 0.4 mg capsule 0.4 mg PO DAILY 03/15/2512/25 History Allergies Allergy/AdvReac Type Severity Reaction Status Date / Time doxycycline Allergy Intermediate Dizziness Verified 03/16/25 11:02 Visit Medications Acetaminophen (Acetaminophen 325 Mg Tablet) 650 mg PO Q6H PRN PRN Reason: PAIN OR FEVER > 101 Stop: 05/31/25 03:41 Aspirin (Aspirin Ec 81 Mg Tabec) 81 mg PO QDAY CHYNA Stop: 05/31/25 08:59 Last Admin: 05/01/25 09:32 Dose: 81 mg Atorvastatin Calcium (Atorvastatin Calcium 20 Mg Tablet) 40 mg PO HS [facility] Stop: 05/31/25 20:59 Bumetanide (Bumetanide Inj 0.25 Mg/Ml Vial 4 Ml) 2 mg IVP BID CHYNA Stop: 05/31/25 08:59 Last Admin: 05/01/25 09:32 Dose: 2 mg Carvedilol (Carvedilol 3.125 Mg Tablet) 3.125 mg PO BIDWM CHYNA Stop: 05/31/25 07:59 Last Admin: 05/01/25 09:32 Dose: 3.125 mg Cephalexin HCl (Cephalexin 250 Mg Capsule) 1,000 mg PO TID [facility] Stop: 05/09/25 07:59 Heparin Sodium (Porcine) (Heparin Sod Inj 5000 Unit/Ml Vial) 5,000 unit SC Q8HR [facility] Stop: 05/15/25 05:59 Last Admin: 05/01/25 13:37 Dose: 5,000 unit Losartan Potassium (Losartan Potassium 25 Mg Tablet) 25 mg PO QDAY [facility] Stop: 05/31/25 08:59 Last Admin: 05/01/25 09:32 Dose: 25 mg Ondansetron HCl (Ondansetron Inj 2 Mg/Ml Inj 2 Ml) 4 mg IV Q6H PRN; Protocol PRN Reason: NAUSEA OR VOMITING Stop: 05/31/25 03:41 Sennosides (Senna Tablet) 2 tab PO BID PRN; Protocol PRN Reason: CONSTIPATION Stop: 05/31/25 03:41 Tamsulosin HCl (Tamsulosin Hcl 0.4 Mg Capsule) 0.4 mg PO QDAY [facility] Stop: 05/31/25 08:59 Last Admin: 05/01/25 09:32 Dose: 0.4 mg Discontinued Medications Furosemide (Furosemide Inj 10 Mg/Ml 4ml Vial) 80 mg IVP X1 ONE Stop: 05/01/25 00:12 Last Admin: 05/01/25 00:26 Dose: 80 mg Ceftriaxone Sodium/Dextrose (Rocephin/D5w 1gm Iv Premix) 1 g in 50 mls @ 100 mls/hr IV X1 ONE Stop: 05/01/25 03:04 Last Admin: 05/01/25 03:33 Dose: Not Given Ceftriaxone Sodium 1 gm/ (Sodium Chloride) 50 mls @ 100 mls/hr IV Q12HR CHYNA Stop: 05/08/25 03:31 Last Admin: 05/01/25 03:35 Dose: Not Given Ceftriaxone Sodium 1 gm/ (Sodium Chloride) 50 mls @ 100 mls/hr IV X1 ONE Stop: 05/01/25 04:03 Last Infusion: 05/01/25 04:32 Dose: Infused Ceftriaxone Sodium/Dextrose (Rocephin/D5w 1gm Iv Premix) 1 gm in 50 mls @ 100 mls/hr IV QDAY CHYNA Stop: 05/08/25 08:59 Last Admin: 05/01/25 09:33 Dose: 100 mls/hr Magnesium Sulfate (Magnesium Sulfate Ivpb) 2 gm in 50 mls @ 25 mls/hr IV X1 ONE Stop: 05/01/25 10:59 Last Admin: 05/01/25 10:03 Dose: 25 mls/hr Morphine Sulfate (Morphine Sulf Inj 10 Mg/Ml Vial) 2 mg IVP X1 ONE Stop: 05/01/25 00:12 Last Admin: 05/01/25 00:26 Dose: 2 mg Nitroglycerin (Nitroglycerin Oint 2% 1 Inch Packet) 2 inch TOP X1 ONE Stop: 05/01/25 00:12 Last Admin: 05/01/25 00:28 Dose: 2 inch Potassium Chloride (Potassium Chloride 10% 20 Meq/15 Ml Udc) 20 meq PO X1 ONE Stop: 05/01/25 09:01 Last Admin: 05/01/25 09:42 Dose: 20 meq Assessment & Plan Plan The patient is a 65-year-old male with medical history of HFrEF (20-30%), BPH , former user of cocaine (last use 2003), former smoker (30 packs/year quit 2021) who was admitted on 05/01/2025 for acute CHF exacerbation. # Acute on chronic severe systolic CHF exacerbation EF 25-30% (03/15/2025) # Multifocal atrial tachycardia # Essential hypertension # Hyperlipidemia Etiology: Etiology: Past medical history of CHF in the setting of cardiomyopathy in the setting of past medical history of cocaine use disorder and smoking history vs ischemic heart condition given deep Q waves noted on EKG w/ MAT pattern. 05/01/2025 NET -5780 Wt 120.304 Dx: Echo (03/15/2025): Dilated LV. Severe systolic dysfunction. Severe global hypokinesis. Estimated EF 20-30% %. Grade 2 diastolic dysfunction. Mild RV dilatation. Mild RV systolic dysufnction. Mild to modertae AV stenosis. Low gradient due to low EF. Mean PG 12-14 mm hg but JE aroind 1.1 to 1.2 sq cm which indicates at least moderate stenosis. Mild MAC. Mild MR. Mild TR. Trace AI. Mildly dilated LA volume 40.5 mL/m?. TSH 1.20 BNP 3100. Troponin within normal limits LIpid Panel Triglycerides 67, Cholesterol 127, LDL 81, HDL 33, NYHA Class: III ASCVD: High-intensity Statins recommended Plan: -Bumex 2 mg IV BID-->Bumex 1 mg IV Q8HRs -Aggressive Diuresis -Aspirin 81 mg PO Qday -Atorvastatin 40 mg PO HS -HOLD Carvedilol 3.125 PO BIDWM & Losartan 25 mg PO Qday -Work towards GDMT, currently holding off given blood pressure and diuresis with Bumex -Consider A1c -Repeat BNP prior to discharge and document dry weight -K>4 and Mg >2 -Fluid Restriction 1000 and Sodium Restriction 2 g per day -SpO >90%, support PRN #Cellulitis Bilateral erythema likely secondary to venous stasis vs cellulits less likely no pyrexia and no leukocytosis, treating empirically Plan Cephalexin 1000 PO TID (05/02/2025--) Blood cultures pending Cirrhosis, Mild Ascites Likely secondary to LIAO given BMI of 35 and history of HLD vs hepatitis vs less likely secondary to alcohol use disorder as AST/ALT within normal limiits. AST 32 ALT 24 Total Bili 1.0/Direct 0.4 US Abdomen: There is 16.4 cm irregular contour fatty infiltration mild ascites Normal hepatopedal portal venous flow. Patent IVC Plan -Hepatitis Panel Pending -Treat underlying condition of LIAO BPH -Resume home dose of Tamsulosin #Incidental Left Common Iliac artery, narrow MONICO (05/01/2025): Right ankle/Brachial index 1.1 and Left ankle/Brachial index 1.1 Plan -Consider outpatient excercise induced MONICO #Bilateral Parenchyal scar formation #Incidental finding Mild aneurysm Dilation abdominal Aorta -Follow up outpatient Health Maintenance: Disp: Pt is currently admitted to floors for further management of CHF , awaiting improved lower pedal edema. FEN: Cardiac Diet, Fluid Restriction 1000 ml DVT: on subQ heparin Q8HRs Code: Full code - The patient's plan was discussed with attending Dr. Dr. Krystin Montgomery MD PGY1 Internal Medicine Attending Provider Attestation/Addendum I have personally seen and examined the patient separately on the above date of service and discussed the plan of care with the resident. I reviewed the resident Dr. Sommer Montgomery consultation progress note and agree with the resident findings and plan in the note above and have also edited the documentation to reflect my findings and plan. Patient admitted with shortness of breath, significant leg swelling as well as difficulty to lie down or orthopnea. Patient was admitted in March 2025 and an echocardiogram was performed which showed severe systolic congestive heart failure with an EF of 25 to 30% along with mild to moderate aortic valve stenosis. Patient was started on medical therapy but cardiology was not consulted during the admission. Echo (03/15/2025): Dilated LV. Severe systolic dysfunction. Severe global hypokinesis. Estimated EF 20-30% %. Grade 2 diastolic dysfunction. Mild RV dilatation. Mild RV systolic dysufnction. Mild to modertae AV stenosis. Low gradient due to low EF. Mean PG 12-14 mm hg but JE aroind 1.1 to 1.2 sq cm which indicates at least moderate stenosis. Mild MAC. Mild MR. Mild TR. Trace AI. Mildly dilated LA volume 40.5 mL/m?. IVC dilated. Patient now presents with bilateral leg swelling almost 4+ edema and scrotal swelling along with lower abdominal wall edema, elevated BNP greater than 3000, shortness of breath, orthopnea as well as PND. Denies any chest pain or chest pressure. Patient is in acute on chronic severe systolic CHF exacerbation with an EF of 25 to 30%. Recommend to aggressively diurese the patient and has been net -4 to 5 L since admission on Bumex 2 mg IV twice daily. Recommend to change Bumex to 1 mg every 8 hours to keep net negative around 1 to 2 L/day to avoid early contraction alkalosis. Strict input output Daily weights and 2 g sodium diet. Fluid restriction of 1.5 to 1.8 L/day. New onset severe congestive heart failure. Etiology unclear and will need to rule out ischemic etiology also along with other nonischemic causes.. Patient has dilated LV, will need to rule out other causes of dilated cardiomyopathy also. Patient denies any kind of recent drug abuse in 20 years. Patient does have significant risk factors for CAD including his history of smoking with [id number] smoking history, hypertension hyperlipidemia and probably had a history of PAD given his to amputation as well as history of drug abuse, pH in the heart failure. Patient will need further ischemic evaluation and kidney removal outpatient as the troponins have been negative at the present point of time and EKG does show some Q waves in the inferior and anteroseptal leads. Recommend aspirin 80 mg once daily and high intensity statin Lipitor 80 mg once daily if no other contraindications. Beta-daysi can be started after the aggressive diuresis. Patient also has mild to moderate aortic valve stenosis given both gradients are low at 20 to 40 mmHg across the aortic valve patient's valve area calculated was 1 cm?. On the echocardiogram patient's pulse ox taken in the uncalcified and appeared to have at least moderate aortic stenosis. Patient has also 4/6 ejection systolic murmur heard in the right second interspace stenosis radiating to the neck which is classic for her aortic stenosis. Patient mostly has low- flow low gradient aortic stenosis which is moderate and will need close follow- up for the aortic stenosis. Moderate aortic stenosis could also be contributing to the heart failure. Will need afterload reduction at a later point after the aggressive diuresis. Patient counseled about following up with doctors regularly and also taking his medications regularly as he probably did not take any of his medication which was started during the last visit. Patient explained clearly about his severe systolic congestive heart failure and the need for aggressive treatment. Patient will need goal-directed medical therapy with Entresto, beta-daysi and spironolactone based on renal function and blood pressure. If patient does not improve with GDMT and also the after the ischemic workup then patient will need an ICD to prevent any sudden cardiac but for all of this to occur patient needs to follow-up with Dr. Michael. Recommend strict control of hypertension, hyperlipidemia. Recommend to check TSH A1c and lipid profile for further cardiac risk stratification. Management of rest of the medical conditions as per primary team and other consultants. Thank you for the consult and allowing me to participate in the care of the patient. Cardiology will continue to follow. Ernie Mcclelland M.D. Interventional Cardiology
[2025-05-01] MEDS: ACETAMINOPHEN 325 MG TABLET 650 MG PO (17:08)
[2025-05-01] MEDS: ATORVASTATIN CALCIUM 20 MG TABLET 40 MG PO (20:53)
[2025-05-01] MEDS: BUMETANIDE INJ 0.25 MG/ML VIAL 4 ML 1 MG IVP (20:59)
[2025-05-01 23:43] LABS: Hepatitis A Antibody IgM Non Reactive (Non React); Hepatitis B Core Antibody IgM Non Reactive (Non React); Hepatitis B Surface Antigen Non Reactive (Non React); Hepatitis C Antibody Reactive (Non React)
[2025-05-02] VITALS (13 sets, daily range): BP systolic 92–121; BP diastolic 59–84; PULSE 68–102; RESP 17–93; TEMP 36.1–36.7; O2SAT 94–96; BMI 35.2
[2025-05-02 05:29] LABS: Basophils # (Auto) 0.1 Thou/mm3 (0.0-0.2); Basophils % (Auto) 1 % (0-2.5); Eosinophils # (Auto) 0.2 Thou/mm3 (0.0-0.5); Eosinophils % (Auto) 3 % (0-10); Hematocrit 42.4 % (41.0-53.0); Immature Granulocytes % (Auto) 0 % (0-0); Immature Granulocytes Auto 0.03 Thou/mm3 (0.00-0.00); Lymphocytes # (Auto) 1.1 Thou/mm3 (1.0-4.8); Lymphocytes % (Auto) 13 % (10-50); Mean Corpuscular Hemoglobin 28.3 pg (25.0-35.0); Mean Corpuscular Volume 86 fL (80-100); Monocytes # (Auto) 0.7 Thou/mm3 (0.0-0.8); Monocytes % (Auto) 8 % (0-12); Neutrophils # (Auto) 6.2 Thou/mm3 (1.8-7.7); Neutrophils % (Auto) 74 % (37-80); Nucleated Red Blood Cell % 0 /100 WBC (0); Platelet Count 126 Thou/mm3 (140-440); RDW Standard Deviation 47.8 fL (35.1-43.9); Red Blood Count 4.94 Miln/mm3 (4.50-5.90); White Blood Count 8.4 Thou/mm3 (3.8-10.6)
[2025-05-02] MEDS: HEPARIN SOD INJ 5000 UNIT/ML VIAL SC ×3 (05:29→21:24)
[2025-05-02] MEDS: ACETAMINOPHEN 325 MG TABLET 650 MG PO (05:29)
[2025-05-02] MEDS: BUMETANIDE INJ 0.25 MG/ML VIAL 4 ML 1 MG IVP ×2 (05:30→14:02)
[2025-05-02 05:51] LABS: Iron 74 mcg/dL (65-175); Percent Iron Saturation 20 % (20-55); Total Iron Binding Capacity 366 mcg/dL (250-425); Unsaturated Iron Binding 292 (225-295)
[2025-05-02 05:53] LABS: Alanine Aminotransferase 23 U/L (10-49); Albumin, Serum 3.4 gm/dL (3.4-4.8); Albumin/Globulin Ratio 1.4 (1.2-2.2); Alkaline Phosphatase 88 U/L (46-116); Anion Gap 11 (7-16); Aspartate Amino Transferase 34 U/L (0-34); BUN/Creatinine Ratio 18 Ratio (12-20); Bilirubin,Total 1.1 mg/dL (0.3-1.2); Blood Urea Nitrogen 22 mg/dL (9-23); Calcium 8.3 mg/dL (8.3-10.6); Calcium (Corrected) 8.8 mg/dL (8.5-10.1); Carbon Dioxide 31.6 mMol/L (20.0-31.0); Chloride 102 mMol/L (98-107); Creatinine (Component) 1.2 mg/dL (0.6-1.3); Estimated Creatinine Clearance 84.5 mL/min (>60); Globulin 2.4 gm/dL (2.3-3.5); Glucose 91 mg/dL (74-106); Magnesium 1.8 mg/dL (1.6-2.6); Osmolality,Calculated 292 (275-295); Potassium 4.2 mMol/L (3.4-5.1); Sodium 145 mMol/L (136-145); Total Protein 5.8 gm/dL (5.7-8.2); eGFR > 60 See Note
[2025-05-02] MEDS: Magnesium Sulfate 4 GM Ivpb 4 GM/50 ML BAG IV (09:12)
[2025-05-02] MEDS: BALSAM PERU/CASTOR OIL (Venelex) 60 GM TUBE TOP ×2 (09:12→21:02)
[2025-05-02] MEDS: ASPIRIN EC 81 MG TABEC PO (09:13)
[2025-05-02] MEDS: TAMSULOSIN HCL 0.4 MG CAPSULE PO (09:13)
[2025-05-02] MEDS: cephALEXin 250 MG CAPSULE 1000 MG PO ×3 (09:13→21:37)
--- NOTE | 2025-05-02 09:24 | PC.SS ---
Follow up note: On IV diuresis.
--- NOTE | 2025-05-02 11:47 | PC.SS ---
SS met with patient regarding d/c plan. Pt is alert/oriented. Pt was admitted for CHF Exacerbation. Pt confirmed demographic and contact information is correct on facesheet. Pt resides alone. Pt ambulates independently without assistance or DME. Pt is ok with all ADLs. Patient?s pharmacy of choice is [facility] in [place]. Pt named his brother Mook medical decision maker if he is unable. Patient?s choice is to return home upon d/c. Pt states his brother will provide transportation. Pt followed up with PCP couple days ago. D/C plan: Return home Next of Kin: Mook King, brother, phone# [phone] PCP: [facility] in [place] Address: Correct on facesheet
--- NOTE | 2025-05-02 13:28 | PD.ADDPROG ---
Addendum Progress Note Addendum Date of report being addended: 05/02/25 Narrative: Face to face evaluation was performed by me. I have personally seen and examined the patient. I discussed the assessment and plan with the entire medicine team. I reviewed available medical records, imaging studies, laboratory results. I agree with the above subjective data, objective findings, assessment and plan except as corrected by me or noted below Acute on chronic systolic heart failure decompensated Left lower extremity cellulitis with edema/erythema/tenderness bilateral lower extremity edema 3+?4+ Volume overload History of BPH IV diuresis, cardiology consult, echo Insomnia resume home regimen Continue with IV diuresis?cardiology increasing to 3 times daily, cardiac echo replace electrolytes as needed keep potassium above 4. Monitor vitals, clinical course, labs closely. DVT prophylaxis. Will need physical therapy eval. Continue antibiotic p.o. Keflex, cellulitis eloise to be improving. If none can try as needed melatonin and/or Ambien. He is feeling better in terms of edema complains of insomnia
[2025-05-02 13:48] LABS: Glucose Estimated Average 108 mg/dL (80-131); Hemoglobin A1C 5.4 % Hgb (4.8-6.0)
--- NOTE | 2025-05-02 14:40 | ESPR_ITS ---
<Statement entered by Aaliyah Lanier MD - 05/03/25 02:28> Patient was seen and examined by me personally. I have directly supervised and reviewed documentation by the team resident and agree with its findings with any exceptions or additional findings as below. Plan of care was discussed with the attending, Dr. Morgan. Mr. King is a 65-year-old male with past medical history of HFrEF (20-30%), BPH, former user of cocaine (last use 2003), former smoker (30 packs/year quit 2021) who presented to the ED 04/30/2025 with shortness of breath and bilateral lower extremity swelling. Patient was subsequently admitted for further management of CHF exacerbation. Today patient continues to diurese quite well, with output of 8L. Bumex dose was changed to 1 mg q8h. Patient continues to have significant edema, thus will continue the diuresis. Aaliyah Lanier, PGY-2 Documentation for date of: 05/02/25 Subjective Subjective Interval history: Patient seen and examined Patient is -5.4 L in the last 24 hours, had 8.1 L urine output. Patient is on Bumex 1 mg every 8 hours, Coreg and losartan were held per cardiology recommendations. Will continue IV diuresis, will monitor bicarb closely for contraction alkalosis. Patient will be given 4 g of magnesium, will continue to correct and replete electrolytes closely. 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 Patient is complaining of insomnia, will be started on melatonin at bedtime. Exam Vital Signs Temp Pulse Resp BP Pulse Ox O2 Del Method 97.4 F 87 18 107/82 94 L Room Air 05/02/25 12:00 05/02/25 14:05/02/25 12:00 05/02/25 14:05/02/25 12:05/02/25 12:00 Narrative Exam General: AOx3, cooperative Skin: Intact, no cyanosis, 3+ pedal edema with erythema, extending upto lower abdomen and scrotum, blisters on planter aspect bilaterally. HEENT: Atraumatic/normocephalic, CYNTHIA, neck supple Heart: RRR, S1 and S2 without clicks or murmurs Lungs: Mild basal crackles on auscultation bilaterally, no difficulty breathing Abdomen: Soft, nontender. Bowel sounds present . Vascular: Peripheral pulses palpable Neuro: No focal neurological deficits noted. Objective Labs 05/03/25 04:35 05/03/25 04:35 Labs: Laboratory Results - last 24 hr 05/01/25 05/02/25 04:50 04:15 WBC 8.4 RBC 4.94 Hgb 14.0 Hct 42.4 MCV 86 MCH 28.3 MCHC 33.0 RDW Std Deviation 47.8 H Plt Count 126 L Neut % (Auto) 74 Lymph % (Auto) 13 [place] % (Auto) 8 Eos % (Auto) 3 Baso % (Auto) 1 Neut # (Auto) 6.2 Lymph # (Auto) 1.1 [place] # (Auto) 0.7 Eos # (Auto) 0.2 Baso # (Auto) 0.1 Immature Gran # (Auto) 0.03 H Absolute Nucleated RBC 0.00 Immature Gran % 0 Nucleated RBC % 0 Sodium 145 Potassium 4.2 D Chloride 102 Carbon Dioxide 31.6 H Anion Gap 11 BUN 22 Creatinine 1.2 Estim Creat Clear Calc 84.5 eGFR > 60 BUN/Creatinine Ratio [address] Glu mg/dL 108 Hemoglobin A1c 5.4 Calculated Osmolality 292 Calcium 8.3 Corrected Calcium 8.8 Magnesium 1.8 Iron 74 TIBC 366 Iron Saturation 20 Unsat Iron Binding 292 Total Bilirubin 1.1 AST 34 ALT 23 Alkaline Phosphatase 88 Total Protein 5.8 Albumin 3.4 Globulin 2.4 Albumin/Globulin Ratio 1.4 Hepatitis A IgM Ab Non Reactive Hep Bs Antigen Non Reactive Hep B Core IgM Ab Non Reactive Hepatitis C Antibody Reactive A ABG Interpretation ABG results: 05/01/25 00:59 ABG pH 7.38 ABG pCO2 41 ABG pO2 72 L ABG HCO3 24 ABG O2 Saturation 95 ABG Base Excess -1 Quality Measures Quality Measures none Assessment & Plan Assessment Current Active Medications: Generic Name Dose Route Start Last Admin Trade Name Freq PRN Reason Stop Dose Admin Acetaminophen 650 mg 05/01/25 03:42 05/02/25 05:29 Acetaminophen 325 Mg Tablet PO 05/31/25 03:41 650 mg Q6H PRN Administration PAIN OR FEVER > 101 Ascorbic Acid 500 mg 05/02/25 14:30 Ascorbic Acid 250 Mg Tablet PO 06/01/25 14:29 BID CHYNA Aspirin 81 mg 05/01/25 09:00 05/02/25 09:13 Aspirin Ec 81 Mg Tabec PO 05/31/25 08:59 81 mg QDAY CHYNA Administration Atorvastatin Calcium 80 mg 05/02/25 21:00 Atorvastatin Calcium 20 Mg Tablet PO 06/01/25 20:59 [facility] [place] [facility] 0 gm 05/02/25 09:00 05/02/25 09:12 [facility] [place] Oil (Venelex) 60 Gm Tube TOP 06/01/25 08:59 1 applicatio BID CHYNA Administration Bumetanide 1 mg 05/01/25 22:00 05/02/25 14:02 Bumetanide Inj 0.25 Mg/Ml Vial 4 Ml IVP 05/31/25 21:59 1 mg Q8HR CHYNA Administration Carvedilol 3.125 mg 05/01/25 08:00 05/01/25 17:08 Carvedilol 3.125 Mg Tablet PO 05/31/25 07:59 3.125 mg BIDWM CHYNA Administration Cephalexin HCl 1,000 mg 05/02/25 08:00 05/02/25 14:03 Cephalexin 250 Mg Capsule PO 05/09/25 07:59 1,000 mg TID CHYNA Administration Heparin Sodium (Porcine) 5,000 unit 05/01/25 06:00 05/02/25 14:05 Heparin Sod Inj 5000 Unit/Ml Vial SC 05/15/25 05:59 5,000 unit Q8HR CHYNA Administration Losartan Potassium 25 mg 05/01/25 09:00 05/01/25 09:32 Losartan Potassium 25 Mg Tablet PO 05/31/25 08:59 25 mg QDAY CHYNA Administration Melatonin 3 mg 05/02/25 20:00 Melatonin 3 Mg Tablet PO 06/01/25 19:59 DAILY@1999 [facility] Multivitamins 1 tab 05/02/25 14:30 Multivitamins Tablet PO 06/01/25 14:29 QDAY [facility] Ondansetron HCl 4 mg 05/01/25 03:42 Ondansetron Inj 2 Mg/Ml Inj 2 Ml IV 05/31/25 03:41 Q6H PRN NAUSEA OR VOMITING Protocol Sennosides 2 tab 05/01/25 03:42 Senna Tablet PO 05/31/25 03:41 BID PRN CONSTIPATION Protocol Tamsulosin HCl 0.4 mg 05/01/25 09:00 05/02/25 09:13 Tamsulosin Hcl 0.4 Mg Capsule PO 05/31/25 08:59 0.4 mg QDAY CHYNA Administration Zinc Sulfate 220 mg 05/02/25 14:30 Zinc Sulfate 220 Mg Capsule PO 05/16/25 14:29 QDAY CHYNA Plan Mr King is a 65-year-old male with medical history of HFrEF, BPH , former user of cocaine (last use 2003), former smoker (30 packs/year quit 2021) who presented to the ED with a chief complaint of shortness of breath and bilateral lower extremity swelling. The patient stopped taking his Lasix for the last 2 weeks, Due to concern for adverse events. 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 The patient has been doing bilateral lower extremity edema extending all the way up to his groin, and had difficulty urinating due to scrotal swelling. Denied fever, chest pain, diarrhea, melena, but endorsed cough with sputum and orthopnea. #Acute decompensated heart failure #Heart failure with reduced ejection fraction, EF 20 to 30% #Mild to moderate AV stenosis #Combined systolic and diastolic heart failure Non compliance with medications, Given IV lasix 80mg x1, Beal catheter in place, adequate urine output, patient had about 2.5 L urine output in the first 24 hours since admission. DVT ruled out. 05/02: Patient is -5.4 L in the last 24 hours, had 8.1 L urine output. Echocardiogram March 2025 shows Dialated cardiomyopathy. Dilated LV. Severe systolic dysfunction. Severe global hypokinesis. Estimated EF 20-30% %. Grade 2 diastolic dysfunction. Mild RV dilatation. Mild RV systolic dysufnction. Mild to modertae AV stenosis. Low gradient due to low EF. Mean PG 12-14 mm hg but JE aroind 1.1 to 1.2 sq cm which indicates at least moderate stenosis. Mild MAC. Mild MR. Mild TR. Trace AI. Mildly dilated LA volume 40.5 mL/m?. Plan: - IV bumex 1 mg every 8 hours - Hold Coreg 3.125 mg bid and losartan 25 mg - introduce further GDMT as tolerated, per cardiology recommendations - Aspirin 81 mg qday - Atorvastatin 80mg qhs - Consulted cardiology, appreciate recommendations #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 Bilateral pedal pulses palpated, no evidence of limb ischemia MON[place] (05/01/2025): Right ankle/Brachial index 1.1 and Left ankle/Brachial index 1.1 Plan: - Follow arterial duplex - Continue outpatient follow-up with vascular surgery #Decompensated Cirrhosis #MASLD, cardiac cirrhosis #Positive hep C antibody Pt reported no prior history of cirrhosis, hepatitis panel shows positive hep C antibody, possible past infection, other multifactorial etiology, possible MASLD and underlying cardiac cirrhosis Abdomen US Shows: Cholelithiasis, Abnormal thickening of the gallbladder wall 0.6 cm, consider HIDA scan or MRCP follow-up, Common bile duct 0.7 cm no stones, Cirrhosis, fatty infiltration, Mild ascites -Follow CMP daily -Ordered hepatitis C quant, ordered HIV #Cellulitis Received 2 doses of IV ceftriaxone 1g qday Urinalysis shows contamination, squamous epithelial cells more than 20 - Will start patient on Keflex p.o. - Monitor for signs of sepsis #BPH - Continue home dose tamsulosin #Hyperlipidemia - Continue atorvastatin 40 mg twice Disposition: Telemetry DVT prophylaxis: Heparin subcut GI prophylaxis: none Diet:cardiac, fluid restriction 1000 cc Lines: PIV CODE STATUS: Full Code Case discussed with Attending Dr. Morgan and Dr. Lanier PGY2. Dennis Sargent PGY1 Disclaimer: This note was dictated by speech recognition. Minor errors in vacation sales advisor may be present due to voice recognition software. Attending Provider Attestation/Addendum Face to face evaluation was performed by me. I have personally seen and examined the patient. I discussed the assessment and plan with the entire medicine team. I reviewed available medical records, imaging studies, laboratory results. I agree with the above subjective data, objective findings, assessment and plan except as corrected by me or noted below Acute on chronic systolic heart failure decompensated Left lower extremity cellulitis with edema/erythema/tenderness bilateral lower extremity edema 3+?4+ Volume overload History of BPH IV diuresis, cardiology consult, echo - was started on IV antibiotics ceftriaxone - which was switched to p.o. regimen likely Keflex. - Monitor labs and vitals, glucose closely evaluation will need physical therapy DVT prophylaxis - Cardio consultation appreciated- diuretics changed to bumex iv tid Echo dvt ppx More than > 30 minutes spent on the encounter
[2025-05-02] MEDS: ZINC SULFATE 220 MG CAPSULE PO (15:02)
[2025-05-02] MEDS: ASCORBIC ACID 250 MG TABLET 500 MG PO ×2 (15:02→20:52)
[2025-05-02] MEDS: MULTIVITAMINS TABLET 1 TAB PO (15:02)
--- NOTE | 2025-05-02 17:12 | ESPR_ITS ---
Documentation for date of: 05/02/25 Subjective Subjective Interval history: Patient is a 65-year-old male with a past medical history of CHF HFrEF 25 to 30% (03/15/2025), former history of heart disease, cocaine use disorder, and past medical history cigarette use, who presented with a chief complaint of lower swelling and increased shortness of breath. Patient stated he stopped taking his medication for about 2 weeks secondary to increased anxiety in regards to side effects, patient was unable to clearly define concern. Increased shortness of breath upon ambulation, requiring patient to sleep in a sitting position, and shortness of breath wakes him up from sleep. Increased shortness of breath with ambulation. Patient describes symptoms related to orthopnea and paroxysmal nocturnal dyspnea. Denied palpitations. Patient denied chest pain or syncopal event. Patient denied recent history of sick contacts. Denied pyrexia at home. Denied past history of COPD. Denied worsening cough. Patient decided to seek further medical attention from the ER as swelling increased into lower quadrant abdomen and increased scrotal edema noted prior to admission. 05/01/2025: Patient complaining of worsening lower pedal edema to upper thigh, concern for anasarca, as patient reported increased swelling to abdomen at home. Patient stated that lower pedal edema worsened over the past few days even extending to lower abdomen. Positive for paroxysmal nocturnal dyspnea and Orthopnea. Patient sleeps in sitting position.Patient was anxious about taking his lasix/water pills and stopped use. Patient unable to verbalize specifically about the lasix made him nervous. Per patient history increase in weight over the past few weeks from 250 lbs to 275 lbs. Patient lives alone at home. 05/02/2025: No overnight events reported. Patient denies chest pain or shortness of breath. Improved lower pedal edema. [place] stated that he would like to start ambulating, likely benefit from PT. Continue to diuersis. Fluid restrict patient. Intake 2420/Output 7100/ Net negative -4680ml Exam Vital Signs Temp Pulse Resp BP Pulse Ox O2 Del Method 97.4 F 93 17 114/79 95 Room Air 05/02/25 16:00 05/02/25 16:00 05/02/25 16:00 05/02/25 16:00 05/02/25 16:05/02/25 16:00 Narrative Exam General Appearance: Alert & Oriented X3, well-nourished male who is lying in bed in no acute distress HEENT: Skull symmetrical and atraumatic. Conjunctivae pink and moist. Pupils equal, round, reactive to light and accommodation (PERRL). External ear without lesion or discharge. Straight, nares patient, mucosa pink, no discharge. Cardio: Normal Rate and Rhythm with S1 and S2 heart sounds, distant heart sounds. Heart sounds difficult to appreciate, possible holosystolic murmur and bruit on carotid auscultation. Pedal Edema +4. No scrotal edema noted. Lungs: Symmetric with good expansion. Chest and back non-tender. Decreased vesicular breath sounds Abdomen: Non-tender, Non-distended, Normal Reactive Bowel Sounds Neuro: Alert, cooperative, oriented to person, place, and time. Speech clear. CN grossly intact. Upper motor strength 5/5 and Lower motor strength 5/5. Sensation intact. Objective Labs 05/02/25 04:15 05/02/25 04:15 Labs: Laboratory Results - last 24 hr 05/01/25 05/02/25 04:50 04:15 WBC 8.4 RBC 4.94 Hgb 14.0 Hct 42.4 MCV 86 MCH 28.3 MCHC 33.0 RDW Std Deviation 47.8 H Plt Count 126 L Neut % (Auto) 74 Lymph % (Auto) 13 [place] % (Auto) 8 Eos % (Auto) 3 Baso % (Auto) 1 Neut # (Auto) 6.2 Lymph # (Auto) 1.1 [place] # (Auto) 0.7 Eos # (Auto) 0.2 Baso # (Auto) 0.1 Immature Gran # (Auto) 0.03 H Absolute Nucleated RBC 0.00 Immature Gran % 0 Nucleated RBC % 0 Sodium 145 Potassium 4.2 D Chloride 102 Carbon Dioxide 31.6 H Anion Gap 11 BUN 22 Creatinine 1.2 Estim Creat Clear Calc 84.5 eGFR > 60 BUN/Creatinine Ratio [address] Glu mg/dL 108 Hemoglobin A1c 5.4 Calculated Osmolality 292 Calcium 8.3 Corrected Calcium 8.8 Magnesium 1.8 Iron 74 TIBC 366 Iron Saturation 20 Unsat Iron Binding 292 Total Bilirubin 1.1 AST 34 ALT 23 Alkaline Phosphatase 88 Total Protein 5.8 Albumin 3.4 Globulin 2.4 Albumin/Globulin Ratio 1.4 Hepatitis A IgM Ab Non Reactive Hep Bs Antigen Non Reactive Hep B Core IgM Ab Non Reactive Hepatitis C Antibody Reactive A ABG Interpretation ABG results: 05/01/25 00:59 ABG pH 7.38 ABG pCO2 41 ABG pO2 72 L ABG HCO3 24 ABG O2 Saturation 95 ABG Base Excess -1 Quality Measures Quality Measures none Assessment & Plan Assessment Current Active Medications: Generic Name Dose Route Start Last Admin Trade Name Ruddyq PRN Reason Stop Dose Admin Acetaminophen 650 mg 05/01/25 03:42 05/02/25 05:29 Acetaminophen 325 Mg Tablet PO 05/31/25 03:41 650 mg Q6H PRN Administration PAIN OR FEVER > 101 Ascorbic Acid 500 mg 05/02/25 14:30 05/02/25 15:02 Ascorbic Acid 250 Mg Tablet PO 06/01/25 14:29 500 mg BID CHYNA Administration Aspirin 81 mg 05/01/25 09:00 05/02/25 09:13 Aspirin Ec 81 Mg Tabec PO 05/31/25 08:59 81 mg QDAY CHYNA Administration Atorvastatin Calcium 80 mg 05/02/25 21:00 Atorvastatin Calcium 20 Mg Tablet PO 06/01/25 20:59 HS CHYNA [place] Oil 0 gm 05/02/25 09:00 05/02/25 09:12 Balsam [place] Oil (Venelex) 60 Gm Tube TOP 06/01/25 08:59 1 applicatio BID CHYNA Administration Bumetanide 1 mg 05/01/25 22:00 05/02/25 14:02 Bumetanide Inj 0.25 Mg/Ml Vial 4 Ml IVP 05/31/25 21:59 1 mg Q8HR CHYNA Administration Carvedilol 3.125 mg 05/01/25 08:00 05/01/25 17:08 Carvedilol 3.125 Mg Tablet PO 05/31/25 07:59 3.125 mg BIDWM CHYNA Administration Cephalexin HCl 1,000 mg 05/02/25 08:00 05/02/25 14:03 Cephalexin 250 Mg Capsule PO 05/09/25 07:59 1,000 mg TID CHYNA Administration Heparin Sodium (Porcine) 5,000 unit 05/01/25 06:00 05/02/25 14:05 Heparin Sod Inj 5000 Unit/Ml Vial SC 05/15/25 05:59 5,000 unit Q8HR CHYNA Administration Losartan Potassium 25 mg 05/01/25 09:00 05/01/25 09:32 Losartan Potassium 25 Mg Tablet PO 05/31/25 08:59 25 mg QDAY CHYNA Administration Melatonin 3 mg 05/02/25 20:00 Melatonin 3 Mg Tablet PO 06/01/25 19:59 DAILY@1999 [facility] Multivitamins 1 tab 05/02/25 14:30 05/02/25 15:02 Multivitamins Tablet PO 06/01/25 14:29 1 tab QDAY CHYNA Administration Ondansetron HCl 4 mg 05/01/25 03:42 Ondansetron Inj 2 Mg/Ml Inj 2 Ml IV 05/31/25 03:41 Q6H PRN NAUSEA OR VOMITING Protocol Sennosides 2 tab 05/01/25 03:42 Senna Tablet PO 05/31/25 03:41 BID PRN CONSTIPATION Protocol Tamsulosin HCl 0.4 mg 05/01/25 09:00 05/02/25 09:13 Tamsulosin Hcl 0.4 Mg Capsule PO 05/31/25 08:59 0.4 mg QDAY CHYNA Administration Zinc Sulfate 220 mg 05/02/25 14:30 05/02/25 15:02 Zinc Sulfate 220 Mg Capsule PO 05/16/25 14:29 220 mg QDAY CHYNA Administration Plan The patient is a 65-year-old male with medical history of HFrEF (20-30%), BPH , former user of cocaine (last use 2003), former smoker (30 packs/year quit 2021) who was admitted on 05/01/2025 for acute CHF exacerbation. # Acute on chronic severe systolic & Diastolic Dysfunction CHF exacerbation EF 25-30% (03/15/2025) # Mild to Moderate AV Stenosis # Multifocal atrial tachycardia # Essential hypertension # Hyperlipidemia Etiology: Etiology: Past medical history of CHF in the setting of cardiomyopathy in the setting of past medical history of cocaine use disorder and smoking history vs ischemic heart condition given deep Q waves noted on EKG w/ MAT pattern. 05/01/2025 NET -5780 Wt 120.304 05/02/2025: NET (12 hr shift): 1940/4100/-2160 Wt 120.304 Dx: Echo (03/15/2025): Dilated LV. Severe systolic dysfunction. Severe global hypokinesis. Estimated EF 20-30% %. Grade 2 diastolic dysfunction. Mild RV dilatation. Mild RV systolic dysufnction. Mild to modertae AV stenosis. Low gradient due to low EF. Mean PG 12-14 mm hg but JE aroind 1.1 to 1.2 sq cm which indicates at least moderate stenosis. Mild MAC. Mild MR. Mild TR. Trace AI. Mildly dilated LA volume 40.5 mL/m?. TSH 1.20 BNP 3100. Troponin within normal limits LIpid Panel Triglycerides 67, Cholesterol 127, LDL 81, HDL 33, A1c 5.4% NYHA Class: III ASCVD: High-intensity Statins recommended Plan: -Bumex 2 mg IV BID-->Bumex 1 mg IV Q8HRs - last 24 hrs - Intake 2420/Output 7100/ Net negative -4680ml -Aggressive Diuresis -Aspirin 81 mg PO Qday -Atorvastatin 80 mg PO HS -HOLD Carvedilol 3.125 PO BIDWM & Losartan 25 mg PO Qday -Work towards GDMT, currently holding off given blood pressure and diuresis with Bumex -Repeat BNP prior to discharge and document dry weight -K>4 and Mg >2 -Fluid Restriction 1000 and Sodium Restriction 2 g per day -SpO >90%, support PRN #Cellulitis Bilateral erythema likely secondary to venous stasis vs cellulits less likely no pyrexia and no leukocytosis, treating empirically Plan Cephalexin 1000 PO TID (05/02/2025--) Blood cultures negative 24 hours Cirrhosis, Mild Ascites Likely secondary to LIAO given BMI of 35 and history of HLD vs hepatitis vs less likely secondary to alcohol use disorder as AST/ALT within normal limits. AST 32 ALT 24 Total Bili 1.0/Direct 0.4 US Abdomen: There is 16.4 cm irregular contour fatty infiltration mild ascites Normal hepatopedal portal venous flow. Patent IVC Plan -Hepatitis Panel Pending -Treat underlying condition of LIAO BPH -Resume home dose of Tamsulosin #Incidental Left Common Iliac artery, narrow MON[place] (05/01/2025): Right ankle/Brachial index 1.1 and Left ankle/Brachial index 1.1 Plan -Consider outpatient excercise induced MONICO #Bilateral Parenchyal scar formation #Incidental finding Mild aneurysm Dilation abdominal Aorta -Follow up outpatient Health Maintenance: Disp: Pt is currently admitted to floors for further management of CHF , awaiting improved lower pedal edema. FEN: Cardiac Diet, Fluid Restriction 1000 ml DVT: on subQ heparin Q8HRs Code: Full code - The patient's plan was discussed with attending Dr. Dr. Krystin Montgomery MD PGY1 Internal Medicine Attending Provider Attestation/Addendum I have personally seen and examined the patient separately on the above date of service and discussed the plan of care with the resident. I reviewed the resident Dr. Sommer Montgomery consultation progress note and agree with the resident findings and plan in the note above and have also edited the documentation to reflect my findings and plan. Ernie Mcclelland M.D. Interventional Cardiology she is
[2025-05-02] MEDS: MELATONIN 3 MG TABLET PO (20:52)
[2025-05-02] MEDS: ATORVASTATIN CALCIUM 20 MG TABLET 80 MG PO (20:53)
[2025-05-03] VITALS (14 sets, daily range): BP systolic 103–119; BP diastolic 67–86; PULSE 49–116; RESP 16–97; TEMP 36–36.6; O2SAT 93–95; BMI 15.0
[2025-05-03 05:12] LABS: Basophils # (Auto) 0.1 Thou/mm3 (0.0-0.2); Basophils % (Auto) 1 % (0-2.5); Eosinophils # (Auto) 0.3 Thou/mm3 (0.0-0.5); Eosinophils % (Auto) 3 % (0-10); Hematocrit 43.8 % (41.0-53.0); Hemoglobin 14.7 g/dL (13.5-16.0); Immature Granulocytes % (Auto) 0 % (0-0); Immature Granulocytes Auto 0.04 Thou/mm3 (0.00-0.00); Lymphocytes # (Auto) 1.1 Thou/mm3 (1.0-4.8); Lymphocytes % (Auto) 11 % (10-50); Mean Corpuscular HGB Conc 33.6 g/dl (31.0-37.0); Mean Corpuscular Hemoglobin 28.3 pg (25.0-35.0); Mean Corpuscular Volume 84 fL (80-100); Monocytes # (Auto) 0.8 Thou/mm3 (0.0-0.8); Monocytes % (Auto) 8 % (0-12); Neutrophils # (Auto) 7.3 Thou/mm3 (1.8-7.7); Neutrophils % (Auto) 77 % (37-80); Nucleated Red Blood Cell % 0 /100 WBC (0); Platelet Count 129 Thou/mm3 (140-440); RDW Standard Deviation 46.9 fL (35.1-43.9); Red Blood Count 5.19 Miln/mm3 (4.50-5.90); White Blood Count 9.5 Thou/mm3 (3.8-10.6)
[2025-05-03] MEDS: BUMETANIDE INJ 0.25 MG/ML VIAL 4 ML 1 MG IVP ×3 (05:27→22:17)
[2025-05-03] MEDS: cephALEXin 250 MG CAPSULE 1000 MG PO ×3 (05:27→22:12)
[2025-05-03] MEDS: HEPARIN SOD INJ 5000 UNIT/ML VIAL SC ×3 (05:27→22:12)
[2025-05-03] MEDS: SENNA TABLET 2 TAB PO (05:27)
[2025-05-03 05:33] LABS: Alanine Aminotransferase 25 U/L (10-49); Albumin, Serum 3.2 gm/dL (3.4-4.8); Albumin/Globulin Ratio 1.2 (1.2-2.2); Alkaline Phosphatase 86 U/L (46-116); Anion Gap 8 (7-16); Aspartate Amino Transferase 41 U/L (0-34); BUN/Creatinine Ratio 15 Ratio (12-20); Bilirubin,Total 1.3 mg/dL (0.3-1.2); Blood Urea Nitrogen 18 mg/dL (9-23); Calcium 7.9 mg/dL (8.3-10.6); Calcium (Corrected) 8.5 mg/dL (8.5-10.1); Carbon Dioxide 32.3 mMol/L (20.0-31.0); Chloride 102 mMol/L (98-107); Creatinine (Component) 1.2 mg/dL (0.6-1.3); Estimated Creatinine Clearance 83.3 mL/min (>60); Globulin 2.6 gm/dL (2.3-3.5); Glucose 98 mg/dL (74-106); Osmolality,Calculated 285 (275-295); Potassium 3.9 mMol/L (3.4-5.1); Sodium 142 mMol/L (136-145); Total Protein 5.8 gm/dL (5.7-8.2); eGFR > 60 See Note
[2025-05-03 09:11] LABS: HIV (1&2) Antibody Rapid Non-Reactive
--- NOTE | 2025-05-03 09:29 | PD.RESPRO ---
Documentation for date of: 05/03/25 Subjective Subjective Interval history: Patient is a 65-year-old male with a past medical history of CHF HFrEF 25 to 30% (03/15/2025), former history of heart disease, cocaine use disorder, and past medical history cigarette use, who presented with a chief complaint of lower swelling and increased shortness of breath. Patient stated he stopped taking his medication for about 2 weeks secondary to increased anxiety in regards to side effects, patient was unable to clearly define concern. Increased shortness of breath upon ambulation, requiring patient to sleep in a sitting position, and shortness of breath wakes him up from sleep. Increased shortness of breath with ambulation. Patient describes symptoms related to orthopnea and paroxysmal nocturnal dyspnea. Denied palpitations. Patient denied chest pain or syncopal event. Patient denied recent history of sick contacts. Denied pyrexia at home. Denied past history of COPD. Denied worsening cough. Patient decided to seek further medical attention from the ER as swelling increased into lower quadrant abdomen and increased scrotal edema noted prior to admission. 05/01/2025: Patient complaining of worsening lower pedal edema to upper thigh, concern for anasarca, as patient reported increased swelling to abdomen at home. Patient stated that lower pedal edema worsened over the past few days even extending to lower abdomen. Positive for paroxysmal nocturnal dyspnea and Orthopnea. Patient sleeps in sitting position.Patient was anxious about taking his lasix/water pills and stopped use. Patient unable to verbalize specifically about the lasix made him nervous. Per patient history increase in weight over the past few weeks from 250 lbs to 275 lbs. Patient lives alone at home. 05/02/2025: No overnight events reported. Patient denies chest pain or shortness of breath. Improved lower pedal edema. Patinet stated that he would like to start ambulating, likely benefit from PT. Continue to diuersis. Fluid restrict patient. Intake 2420/Output 7100/ Net negative -4680ml 05/03/2025: No overnight events. Patient denied chest pain or SOB. Patient has remianed Afebrile overnight. 1 bowel movement overnight. Improved uppper thigh swelling, but edema still +3. Mild conraction alkalosis noted, continue diuresis. Last 24 Hours:Net -3210 Exam Vital Signs Temp Pulse Resp BP Pulse Ox O2 Del Method 97 F 95 17 105/81 93 L Room Air 05/03/25 08:00 05/03/25 08:00 05/03/25 08:00 05/03/25 08:00 05/03/25 08:00 05/03/25 08:00 Narrative Exam General Appearance: Alert & Oriented X3, well-nourished male who is lying in bed in no acute distress HEENT: Skull symmetrical and atraumatic. Conjunctivae pink and moist. Pupils equal, round, reactive to light and accommodation (PERRL). External ear without lesion or discharge. Straight, nares patient, mucosa pink, no discharge. Cardio: Normal Rate and Rhythm with S1 and S2 heart sounds, distant heart sounds. Heart sounds difficult to appreciate, possible holosystolic murmur and bruit on carotid auscultation. Pedal Edema +4. No scrotal edema noted. Lungs: Symmetric with good expansion. Chest and back non-tender. Decreased vesicular breath sounds Abdomen: Non-tender, Non-distended, Normal Reactive Bowel Sounds Neuro: Alert, cooperative, oriented to person, place, and time. Speech clear. CN grossly intact. Upper motor strength 5/5 and Lower motor strength 5/5. Sensation intact. Objective Labs 05/03/25 04:35 05/03/25 04:35 Labs: Laboratory Results - last 24 hr 05/02/25 05/03/25 04:15 04:35 WBC 9.5 RBC 5.19 Hgb 14.7 Hct 43.8 MCV 84 MCH 28.3 MCHC 33.6 RDW Std Deviation 46.9 H Plt Count 129 L Neut % (Auto) 77 Lymph % (Auto) 11 [place] % (Auto) 8 Eos % (Auto) 3 Baso % (Auto) 1 Neut # (Auto) 7.3 Lymph # (Auto) 1.1 [place] # (Auto) 0.8 Eos # (Auto) 0.3 Baso # (Auto) 0.1 Immature Gran # (Auto) 0.04 H Absolute Nucleated RBC 0.00 Immature Gran % 0 Nucleated RBC % 0 Sodium 142 Potassium 3.9 Chloride 102 Carbon Dioxide 32.3 H Anion Gap 8 BUN 18 Creatinine 1.2 Estim Creat Clear Calc 83.3 eGFR > 60 BUN/Creatinine Ratio [address] Glu mg/dL 108 Hemoglobin A1c 5.4 Calculated Osmolality 285 Calcium 7.9 L Corrected Calcium 8.5 Magnesium 2.0 Total Bilirubin 1.3 H AST 41 H ALT 25 Alkaline Phosphatase 86 Total Protein 5.8 Albumin 3.2 L Globulin 2.6 Albumin/Globulin Ratio 1.2 HIV 1&2 Antibody Rapid Non-Reactive ABG Interpretation ABG results: 05/01/25 00:59 ABG pH 7.38 ABG pCO2 41 ABG pO2 72 L ABG HCO3 24 ABG O2 Saturation 95 ABG Base Excess -1 Quality Measures Quality Measures none Assessment & Plan Assessment Current Active Medications: Generic Name Dose Route Start Last Admin Trade Name Freq PRN Reason Stop Dose Admin Acetaminophen 650 mg 05/01/25 03:42 05/02/25 05:29 Acetaminophen 325 Mg Tablet PO 05/31/25 03:41 650 mg Q6H PRN Administration PAIN OR FEVER > 101 Ascorbic Acid 500 mg 05/02/25 14:30 05/02/25 20:52 Ascorbic Acid 250 Mg Tablet PO 06/01/25 14:29 500 mg BID CHYNA Administration Aspirin 81 mg 05/01/25 09:00 05/02/25 09:13 Aspirin Ec 81 Mg Tabec PO 05/31/25 08:59 81 mg QDAY CHYNA Administration Atorvastatin Calcium 80 mg 05/02/25 21:00 05/02/25 20:53 Atorvastatin Calcium 20 Mg Tablet PO 06/01/25 20:59 80 mg HS CHYNA Administration Balsam [place] Oil 0 gm 05/02/25 09:00 05/02/25 21:02 Balsam [place] Oil (Venelex) 60 Gm Tube TOP 06/01/25 08:59 1 applicatio BID CHYNA Administration Bumetanide 1 mg 05/01/25 22:00 05/03/25 05:27 Bumetanide Inj 0.25 Mg/Ml Vial 4 Ml IVP 05/31/25 21:59 1 mg Q8HR CHYNA Administration Carvedilol 3.125 mg 05/01/25 08:00 05/01/25 17:08 Carvedilol 3.125 Mg Tablet PO 05/31/25 07:59 3.125 mg BIDWM CHYNA Administration Cephalexin HCl 1,000 mg 05/02/25 08:00 05/03/25 05:27 Cephalexin 250 Mg Capsule PO 05/09/25 07:59 1,000 mg TID CHYNA Administration Heparin Sodium (Porcine) 5,000 unit 05/01/25 06:00 05/03/25 05:27 Heparin Sod Inj 5000 Unit/Ml Vial SC 05/15/25 05:59 5,000 unit Q8HR CHYNA Administration Losartan Potassium 25 mg 05/01/25 09:00 05/01/25 09:32 Losartan Potassium 25 Mg Tablet PO 05/31/25 08:59 25 mg QDAY CHYNA Administration Melatonin 3 mg 05/02/25 20:00 05/02/25 20:52 Melatonin 3 Mg Tablet PO 06/01/25 19:59 3 mg DAILY@2000 CHYNA Administration Multivitamins 1 tab 05/02/25 14:30 05/02/25 15:02 Multivitamins Tablet PO 06/01/25 14:29 1 tab QDAY CHYNA Administration Ondansetron HCl 4 mg 05/01/25 03:42 Ondansetron Inj 2 Mg/Ml Inj 2 Ml IV 05/31/25 03:41 Q6H PRN NAUSEA OR VOMITING Protocol Sennosides 2 tab 05/01/25 03:42 05/03/25 05:27 Senna Tablet PO 05/31/25 03:41 2 tab BID PRN Administration CONSTIPATION Protocol Tamsulosin HCl 0.4 mg 05/01/25 09:00 05/02/25 09:13 Tamsulosin Hcl 0.4 Mg Capsule PO 05/31/25 08:59 0.4 mg QDAY CHYNA Administration Zinc Sulfate 220 mg 05/02/25 14:30 05/02/25 15:02 Zinc Sulfate 220 Mg Capsule PO 05/16/25 14:29 220 mg QDAY CHYNA Administration Plan The patient is a 65-year-old male with medical history of HFrEF (20-30%), BPH , former user of cocaine (last use 2003), former smoker (30 packs/year quit 2021) who was admitted on 05/01/2025 for acute CHF exacerbation. # Acute on chronic severe systolic & Diastolic Dysfunction CHF exacerbation EF 25-30% (03/15/2025) # Mild to Moderate AV Stenosis # Multifocal atrial tachycardia # Essential hypertension # Hyperlipidemia Etiology: Etiology: Past medical history of CHF in the setting of cardiomyopathy in the setting of past medical history of cocaine use disorder and smoking history vs ischemic heart condition given deep Q waves noted on EKG w/ MAT pattern. 05/03/2025: NET -3210 Total Net Balance during hospital visit: -11,270 ml (05/01/2025-05/03/2025) Dx: Echo (03/15/2025): Dilated LV. Severe systolic dysfunction. Severe global hypokinesis. Estimated EF 20-30% %. Grade 2 diastolic dysfunction. Mild RV dilatation. Mild RV systolic dysufnction. Mild to modertae AV stenosis. Low gradient due to low EF. Mean PG 12-14 mm hg but JE aroind 1.1 to 1.2 sq cm which indicates at least moderate stenosis. Mild MAC. Mild MR. Mild TR. Trace AI. Mildly dilated LA volume 40.5 mL/m?. TSH 1.20 BNP 3100. Troponin within normal limits LIpid Panel Triglycerides 67, Cholesterol 127, LDL 81, HDL 33, A1c 5.4% NYHA Class: III ASCVD: High-intensity Statins recommended Plan: -Bumex 1 mg IV Q8HRs - last 24 hrs -3210 ml -Aggressive Diuresis -Aspirin 81 mg PO Qday -Atorvastatin 80 mg PO HS -HOLD Carvedilol 3.125 PO BIDWM & Losartan 25 mg PO Qday -Work towards GDMT, currently holding off given blood pressure and diuresis with Bumex -Repeat BNP prior to discharge and document dry weight -K>4 and Mg >2 -Fluid Restriction 1500ml and Sodium Restriction 2 g per day -SpO >90%, support PRN #Cirrhosis, Mild Ascites hepatitis C given positive Hepatitis Panel & likely LIAO contributing to finding given BMI of 35, history of HLD, and Fatty infiltration findings on CT vs less likely secondary to alcohol use disorder as AST/ALT within normal limits. Hepatitis Panel: Positive for Hep C, pending levels AST 32 ALT 24 Total Bili 1.0/Direct 0.4-->AST 41 ALT 25 Total Bili 1.3 US Abdomen: There is 16.4 cm irregular contour fatty infiltration mild ascites Normal hepatopedal portal venous flow. Patent IVC Child Moran Score 6 points, Class A, Life Expectancy 15-20 years Plan -Hepatitis C positive, pending PCR -Primary Team started patient on Ascorbic Acid -Patient would benefit from biopsy outpatient & follow up outpatient for Hep C #Cellulitis Bilateral erythema likely secondary to venous stasis vs cellulits less likely no pyrexia and no leukocytosis, treating empirically Plan Cephalexin 1000 PO TID (05/02/2025--) Blood cultures negative 48 hours #BPH -Resume home dose of Tamsulosin #Incidental Left Common Iliac artery, narrow MONICO (05/01/2025): Right ankle/Brachial index 1.1 and Left ankle/Brachial index 1.1 Plan -Consider outpatient exercise induced MONICO #Bilateral Parenchyal scar formation #Incidental finding Mild aneurysm Dilation abdominal Aorta -Follow up outpatient Health Maintenance: Disp: Pt is currently admitted to floors for further management of CHF , awaiting improved lower pedal edema. FEN: Cardiac Diet, Fluid Restriction 1500 ml DVT: on subQ heparin Q8HRs Code: Full code - The patient's plan was discussed with attending Dr. Dr. Krystin Montgomery MD PGY1 Internal Medicine Attending Provider Attestation/Addendum I have personally seen and examined the patient separately on the above date of service and discussed the plan of care with the resident. I reviewed the resident Dr. Sommer Montgomery consultation progress note and agree with the resident findings and plan in the note above and have also edited the documentation to reflect my findings and plan. Ernie Mcclelland M.D. Interventional Cardiology
[2025-05-03] MEDS: POTASSIUM CHLORIDE 20 mEq TABCR PO (11:10)
[2025-05-03] MEDS: ZINC SULFATE 220 MG CAPSULE PO (11:10)
[2025-05-03] MEDS: MULTIVITAMINS TABLET 1 TAB PO (11:10)
[2025-05-03] MEDS: ASPIRIN EC 81 MG TABEC PO (11:10)
[2025-05-03] MEDS: ASCORBIC ACID 250 MG TABLET 500 MG PO ×2 (11:10→21:03)
[2025-05-03] MEDS: TAMSULOSIN HCL 0.4 MG CAPSULE PO (11:10)
--- NOTE | 2025-05-03 11:47 | ESPR_ITS ---
<Statement entered by Aaliyah Lanier MD - 05/03/25 15:43> Patient was seen and examined by me personally. I have directly supervised and reviewed documentation by the team resident and agree with its findings with any exceptions or additional findings as below. Plan of care was discussed with the attending, Dr. Mohan. Aaliyah Lanier, PGY-2 Documentation for date of: 05/03/25 Subjective Subjective Interval history: Patient seen and examined at bedside. Patient has significant edema bilateral lower extremity, will continue with diuresis with IV Bumex every 8 hours. Patient's bilirubin is uptrending, pending hepatitis C quant results, will continue to monitor LFTs and bilirubin. Patient denies any IV drug use or unprotected sexual encounter, has never been diagnosed with hepatitis C in the past. Patient complains of insomnia, will increase melatonin dose to 6 mg every night. Cardiology is consulted, following case closely. Will continue to monitor patient. Exam Vital Signs Temp Pulse Resp BP Pulse Ox O2 Del Method 97 F 95 17 105/81 93 L Room Air 05/03/25 08:00 05/03/25 08:00 05/03/25 08:00 05/03/25 08:00 05/03/25 08:00 05/03/25 08:00 Narrative Exam General: AOx3, cooperative Skin: Intact, no cyanosis, 3+ pedal edema with erythema, extending upto lower abdomen and scrotum, blisters on planter aspect bilaterally. HEENT: Atraumatic/normocephalic, CYNTHIA, neck supple Heart: RRR, S1 and S2 without clicks or murmurs Lungs: Mild basal crackles on auscultation bilaterally, no difficulty breathing Abdomen: Soft, nontender. Bowel sounds present . Vascular: Peripheral pulses palpable Neuro: No focal neurological deficits noted. Objective Labs 05/03/25 04:35 05/03/25 04:35 Labs: Laboratory Results - last 24 hr 05/02/25 05/03/25 04:15 04:35 WBC 9.5 RBC 5.19 Hgb 14.7 Hct 43.8 MCV 84 MCH 28.3 MCHC 33.6 RDW Std Deviation 46.9 H Plt Count 129 L Neut % (Auto) 77 Lymph % (Auto) 11 [place] % (Auto) 8 Eos % (Auto) 3 Baso % (Auto) 1 Neut # (Auto) 7.3 Lymph # (Auto) 1.1 [place] # (Auto) 0.8 Eos # (Auto) 0.3 Baso # (Auto) 0.1 Immature Gran # (Auto) 0.04 H Absolute Nucleated RBC 0.00 Immature Gran % 0 Nucleated RBC % 0 Sodium 142 Potassium 3.9 Chloride 102 Carbon Dioxide 32.3 H Anion Gap 8 BUN 18 Creatinine 1.2 Estim Creat Clear Calc 83.3 eGFR > 60 BUN/Creatinine Ratio [address] Glu mg/dL 108 Hemoglobin A1c 5.4 Calculated Osmolality 285 Calcium 7.9 L Corrected Calcium 8.5 Magnesium 2.0 Total Bilirubin 1.3 H AST 41 H ALT 25 Alkaline Phosphatase 86 Total Protein 5.8 Albumin 3.2 L Globulin 2.6 Albumin/Globulin Ratio 1.2 HIV 1&2 Antibody Rapid Non-Reactive ABG Interpretation ABG results: 05/01/25 00:59 ABG pH 7.38 ABG pCO2 41 ABG pO2 72 L ABG HCO3 24 ABG O2 Saturation 95 ABG Base Excess -1 Quality Measures Quality Measures none Assessment & Plan Assessment Current Active Medications: Generic Name Dose Route Start Last Admin Trade Name Freq PRN Reason Stop Dose Admin Acetaminophen 650 mg 05/01/25 03:42 05/02/25 05:29 Acetaminophen 325 Mg Tablet PO 05/31/25 03:41 650 mg Q6H PRN Administration PAIN OR FEVER > 101 Ascorbic Acid 500 mg 05/02/25 14:30 05/03/25 11:10 Ascorbic Acid 250 Mg Tablet PO 06/01/25 14:29 500 mg BID CHYNA Administration Aspirin 81 mg 05/01/25 09:00 05/03/25 11:10 Aspirin Ec 81 Mg Tabec PO 05/31/25 08:59 81 mg QDAY CHYNA Administration Atorvastatin Calcium 80 mg 05/02/25 21:00 05/02/25 20:53 Atorvastatin Calcium 20 Mg Tablet PO 06/01/25 20:59 80 mg HS CHYNA Administration Balsam [place] Oil 0 gm 05/02/25 09:00 05/02/25 21:02 Balsam [place] Oil (Venelex) 60 Gm Tube TOP 06/01/25 08:59 1 applicatio BID CHYNA Administration Bumetanide 1 mg 05/01/25 22:00 05/03/25 05:27 Bumetanide Inj 0.25 Mg/Ml Vial 4 Ml IVP 05/31/25 21:59 1 mg Q8HR CHYNA Administration Carvedilol 3.125 mg 05/01/25 08:00 05/01/25 17:08 Carvedilol 3.125 Mg Tablet PO 05/31/25 07:59 3.125 mg BIDWM CHYNA Administration Cephalexin HCl 1,000 mg 05/02/25 08:00 05/03/25 05:27 Cephalexin 250 Mg Capsule PO 05/09/25 07:59 1,000 mg TID CHYNA Administration Heparin Sodium (Porcine) 5,000 unit 05/01/25 06:00 05/03/25 05:27 Heparin Sod Inj 5000 Unit/Ml Vial SC 05/15/25 05:59 5,000 unit Q8HR CHYNA Administration Losartan Potassium 25 mg 05/01/25 09:00 05/01/25 09:32 Losartan Potassium 25 Mg Tablet PO 05/31/25 08:59 25 mg QDAY CHYNA Administration Melatonin 3 mg 05/02/25 20:00 05/02/25 20:52 Melatonin 3 Mg Tablet PO 06/01/25 19:59 3 mg DAILY@2000 CHYNA Administration Multivitamins 1 tab 05/02/25 14:30 05/03/25 11:10 Multivitamins Tablet PO 06/01/25 14:29 1 tab QDAY CHYNA Administration Ondansetron HCl 4 mg 05/01/25 03:42 Ondansetron Inj 2 Mg/Ml Inj 2 Ml IV 05/31/25 03:41 Q6H PRN NAUSEA OR VOMITING Protocol Sennosides 2 tab 05/01/25 03:42 05/03/25 05:27 Senna Tablet PO 05/31/25 03:41 2 tab BID PRN Administration CONSTIPATION Protocol Tamsulosin HCl 0.4 mg 05/01/25 09:00 05/03/25 11:10 Tamsulosin Hcl 0.4 Mg Capsule PO 05/31/25 08:59 0.4 mg QDAY CHYNA Administration Zinc Sulfate 220 mg 05/02/25 14:30 05/03/25 11:10 Zinc Sulfate 220 Mg Capsule PO 05/16/25 14:29 220 mg QDAY CHYNA Administration Plan Mr King is a 65-year-old male with medical history of HFrEF, BPH , former user of cocaine (last use 2003), former smoker (30 packs/year quit 2021) who presented to the ED with a chief complaint of shortness of breath and bilateral lower extremity swelling. The patient stopped taking his Lasix for the last 2 weeks, Due to concern for adverse events. The patient was discharged home from hospital recently for CHF exacerbation but has not been established with a card writer hand outpatient as he lives alone and does not have transport available. The patient has been doing bilateral lower extremity edema extending all the way up to his groin, and had difficulty urinating due to scrotal swelling. Denied fever, chest pain, diarrhea, melena, but endorsed cough with sputum and orthopnea. #Acute decompensated heart failure #Heart failure with reduced ejection fraction, EF 20 to 30% #Mild to moderate AV stenosis #Combined systolic and diastolic heart failure Non compliance with medications, Given IV lasix 80mg x1, Beal catheter in place, adequate urine output, patient had about 2.5 L urine output in the first 24 hours since admission. DVT ruled out. 05/02: Patient is -5.4 L in the last 24 hours, had 8.1 L urine output. 05/03: Patient is -5.6 L, total urine output 7.7 L in the last 24 hours Echocardiogram March 2025 shows Dialated cardiomyopathy. Dilated LV. Severe systolic dysfunction. Severe global hypokinesis. Estimated EF 20-30% %. Grade 2 diastolic dysfunction. Mild RV dilatation. Mild RV systolic dysufnction. Mild to modertae AV stenosis. Low gradient due to low EF. Mean PG 12-14 mm hg but JE aroind 1.1 to 1.2 sq cm which indicates at least moderate stenosis. Mild MAC. Mild MR. Mild TR. Trace AI. Mildly dilated LA volume 40.5 mL/m?. Plan: - IV bumex 1 mg every 8 hours - Hold Coreg 3.125 mg bid and losartan 25 mg - introduce further GDMT as tolerated, per cardiology recommendations - Aspirin 81 mg qday - Atorvastatin 80mg qhs - Consulted cardiology, appreciate recommendations #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 Bilateral pedal pulses palpated, no evidence of limb ischemia MONICO (05/01/2025): Right ankle/Brachial index 1.1 and Left ankle/Brachial index 1.1 Plan: - Continue outpatient follow-up with vascular surgery #Decompensated Cirrhosis #MASLD, cardiac cirrhosis #Positive hep C antibody Pt reported no prior history of cirrhosis, hepatitis panel shows positive hep C antibody, possible past infection, other multifactorial etiology, possible MASLD and underlying cardiac cirrhosis Abdomen US Shows: Cholelithiasis, Abnormal thickening of the gallbladder wall 0.6 cm, consider HIDA scan or MRCP follow-up, Common bile duct 0.7 cm no stones, Cirrhosis, fatty infiltration, Mild ascites HIV negative -Follow CMP daily -Ordered hepatitis C quant #Cellulitis Received 2 doses of IV ceftriaxone 1g qday Urinalysis shows contamination, squamous epithelial cells more than 20 - Will start patient on Keflex p.o. (05/02- - Monitor for signs of sepsis #BPH - Continue home dose tamsulosin #Hyperlipidemia - Continue atorvastatin 40 mg twice Disposition: Telemetry DVT prophylaxis: Heparin subcut GI prophylaxis: none Diet:cardiac, fluid restriction 1000 cc Lines: PIV CODE STATUS: Full Code Case discussed with Attending Dr. Mohan and Dr. Lanier PGY2. Dennis Sargent PGY1 Disclaimer: This note was dictated by speech recognition. Minor errors in button buttonhole marker may be present due to voice recognition software. Attending Provider Attestation/Addendum I attest that I was physically present for the evaluation, physical examination, lab and imaging review of the patient with the residents. I discussed the case with the residents and agree with the findings and plans of care as documented above. At bedside today, patient states she is feeling well and does not have any new complaints. Appears comfortable, saturating well on room air. Had -3210 cc negative balance in last 24 hours. Lab results are stable except for total bilirubin of 1.3 from 1.1 yesterday and CO2 of 32.3 from 31.6 yesterday. Continues to be on Bumex 1 mg every 8 hour. Patient still has significant bilateral pedal edema, 3+ extending up to lower abdomen and scrotum. We will continue with aggressive diuresis. La Mohan MD
[2025-05-03] MEDS: BALSAM PERU/CASTOR OIL (Venelex) 60 GM TUBE TOP ×2 (14:24→21:04)
[2025-05-03] MEDS: MELATONIN 3 MG TABLET 6 MG PO (20:57)
[2025-05-03] MEDS: ATORVASTATIN CALCIUM 20 MG TABLET 80 MG PO (21:01)
[2025-05-04] VITALS (11 sets, daily range): BP systolic 99–124; BP diastolic 66–85; PULSE 83–108; RESP 16–20; TEMP 36.1–36.3; O2SAT 95
[2025-05-04] MEDS: cephALEXin 250 MG CAPSULE 1000 MG PO ×3 (05:34→21:16)
[2025-05-04] MEDS: HEPARIN SOD INJ 5000 UNIT/ML VIAL SC ×3 (05:34→21:17)
[2025-05-04 05:38] LABS: Basophils # (Auto) 0.1 Thou/mm3 (0.0-0.2); Basophils % (Auto) 1 % (0-2.5); Eosinophils # (Auto) 0.2 Thou/mm3 (0.0-0.5); Eosinophils % (Auto) 2 % (0-10); Hematocrit 47.3 % (41.0-53.0); Hemoglobin 14.9 g/dL (13.5-16.0); Immature Granulocytes % (Auto) 1 % (0-0); Immature Granulocytes Auto 0.06 Thou/mm3 (0.00-0.00); Lymphocytes # (Auto) 1.2 Thou/mm3 (1.0-4.8); Lymphocytes % (Auto) 12 % (10-50); Mean Corpuscular HGB Conc 31.5 g/dl (31.0-37.0); Mean Corpuscular Hemoglobin 27.9 pg (25.0-35.0); Mean Corpuscular Volume 89 fL (80-100); Monocytes % (Auto) 10 % (0-12); Neutrophils # (Auto) 7.6 Thou/mm3 (1.8-7.7); Neutrophils % (Auto) 75 % (37-80); Nucleated Red Blood Cell % 0 /100 WBC (0); Platelet Count 144 Thou/mm3 (140-440); RDW Standard Deviation 50.6 fL (35.1-43.9); Red Blood Count 5.34 Miln/mm3 (4.50-5.90); White Blood Count 10.1 Thou/mm3 (3.8-10.6)
[2025-05-04] MEDS: BUMETANIDE INJ 0.25 MG/ML VIAL 4 ML 1 MG IVP ×2 (05:41→21:17)
[2025-05-04 06:36] LABS: Alanine Aminotransferase 29 U/L (10-49); Albumin, Serum 3.5 gm/dL (3.4-4.8); Albumin/Globulin Ratio 1.4 (1.2-2.2); Alkaline Phosphatase 90 U/L (46-116); Anion Gap 11 (7-16); Aspartate Amino Transferase 46 U/L (0-34); BUN/Creatinine Ratio 18 Ratio (12-20); Bilirubin,Total 1.7 mg/dL (0.3-1.2); Blood Urea Nitrogen 20 mg/dL (9-23); Calcium 8.2 mg/dL (8.3-10.6); Calcium (Corrected) 8.6 mg/dL (8.5-10.1); Chloride 95 mMol/L (98-107); Creatinine (Component) 1.1 mg/dL (0.6-1.3); Estimated Creatinine Clearance 90.9 mL/min (>60); Globulin 2.5 gm/dL (2.3-3.5); Glucose 103 mg/dL (74-106); Magnesium 1.8 mg/dL (1.6-2.6); Osmolality,Calculated 285 (275-295); Potassium 3.7 mMol/L (3.4-5.1); Sodium 142 mMol/L (136-145); eGFR > 60 See Note
--- NOTE | 2025-05-04 08:43 | XR_ITS ---
Examination: Abdomen sonogram, Limited Date and time of exam: May 04, 2025 1235 hours INDICATIONS: Elevated bilirubin on laboratory examination this week, diagnosis cirrhosis Technique: Real-time mercer scale transabdominal sonographic images of the upper abdomen obtained. Findings: Contracted gallbladder with single gallstone Gallbladder wall is thickened 0.5 cm Common bile duct 0.4 cm Pancreas obscured by bowel gas Liver 15.4 cm fatty infiltration lobular contour no focal liver lesions Normal hepatopedal portal venous flow Patent IVC IMPRESSION: Cholelithiasis Gallbladder wall is thickened 0.5 cm, consider HIDA scan or MRCP follow-up to exclude cholecystitis
[2025-05-04] MEDS: ASCORBIC ACID 250 MG TABLET 500 MG PO ×2 (08:56→21:16)
[2025-05-04] MEDS: ACETAzolaMIDE 250 MG TABLET PO ×2 (08:57→11:49)
[2025-05-04] MEDS: ZINC SULFATE 220 MG CAPSULE PO (08:57)
[2025-05-04] MEDS: TAMSULOSIN HCL 0.4 MG CAPSULE PO (08:57)
[2025-05-04] MEDS: MULTIVITAMINS TABLET 1 TAB PO (08:57)
[2025-05-04] MEDS: ACETAMINOPHEN 325 MG TABLET 650 MG PO (08:57)
[2025-05-04] MEDS: ASPIRIN EC 81 MG TABEC PO (08:57)
[2025-05-04] MEDS: BALSAM PERU/CASTOR OIL (Venelex) 60 GM TUBE TOP ×2 (08:58→21:20)
--- NOTE | 2025-05-04 10:22 | PC.SS ---
Follow up note: IV diuresis. Still having lof of fluid out put. Pt will return home with upon d.c.
--- NOTE | 2025-05-04 10:29 | EKG_ITS ---
[facility] Test Date: 2025-05-04 Pat Name: CANDY SHIELDS Department: Room: S357A Gender: Male Process Checker: WINSTON : 1960 Requested By: Aaliyah Lanier Order Number: [id number] Reading MD: Aaliyah Lanier Measurements Intervals [place] Rate: 92 P: 13 IN: 153 QRS: -13 QRSD: 114 T: 142 QT: 407 QTc: 505 Interpretive Statements SINUS RHYTHM WITH OCCASIONAL VENTRICULAR PREMATURE COMPLEXES WITH OCCASIONAL SUPRAVENTRICULAR PREMATURE COMPLEXES LEFT VENTRICULAR HYPERTROPHY AND ST-T CHANGE Compared to ECG 04/30/2025 23:54:19 Sinus tachycardia no longer present ST (T wave) deviation still present /store/S0/[id number]
[2025-05-04] MEDS: Magnesium Sulfate 4 GM Ivpb 4 GM/50 ML BAG IV (11:35)
[2025-05-04] MEDS: POTASSIUM CHLORIDE 20 mEq TABCR 40 MEQ PO (11:35)
--- NOTE | 2025-05-04 11:49 | PC.NURSE ---
Duplicate order for Diomax ordered for patient. Verified with Dr. Lanier patients dose should be 500mg. Second medication administered, as ordered.
--- NOTE | 2025-05-04 16:14 | ESPR_ITS ---
Documentation for date of: 05/04/25 Subjective Subjective Interval history: Patient is a 65-year-old male with a past medical history of CHF HFrEF 25 to 30% (03/15/2025), former history of heart disease, cocaine use disorder, and past medical history cigarette use, who presented with a chief complaint of lower swelling and increased shortness of breath. Patient stated he stopped taking his medication for about 2 weeks secondary to increased anxiety in regards to side effects, patient was unable to clearly define concern. Increased shortness of breath upon ambulation, requiring patient to sleep in a sitting position, and shortness of breath wakes him up from sleep. Increased shortness of breath with ambulation. Patient describes symptoms related to orthopnea and paroxysmal nocturnal dyspnea. Denied palpitations. Patient denied chest pain or syncopal event. Patient denied recent history of sick contacts. Denied pyrexia at home. Denied past history of COPD. Denied worsening cough. Patient decided to seek further medical attention from the ER as swelling increased into lower quadrant abdomen and increased scrotal edema noted prior to admission. 05/01/2025: Patient complaining of worsening lower pedal edema to upper thigh, concern for anasarca, as patient reported increased swelling to abdomen at home. Patient stated that lower pedal edema worsened over the past few days even extending to lower abdomen. Positive for paroxysmal nocturnal dyspnea and Orthopnea. Patient sleeps in sitting position.Patient was anxious about taking his lasix/water pills and stopped use. Patient unable to verbalize specifically about the lasix made him nervous. Per patient history increase in weight over the past few weeks from 250 lbs to 275 lbs. Patient lives alone at home. 05/02/2025: No overnight events reported. Patient denies chest pain or shortness of breath. Improved lower pedal edema. Patinet stated that he would like to start ambulating, likely benefit from PT. Continue to diuersis. Fluid restrict patient. Intake 2420/Output 7100/ Net negative -4680ml 05/03/2025: No overnight events. Patient denied chest pain or SOB. Patient has remianed Afebrile overnight. 1 bowel movement overnight. Improved uppper thigh swelling, but edema still +3. Mild conraction alkalosis noted, continue diuresis. Last 24 Hours:Net -3210 05/04/2025: No overnight events. Patient denied chest pain or SOB. Lower pedal edema 3+ with improvement at upper thigh. Bumex decreased to 1 mg IV BID and Diamox 500 mg oral given Total Net Balance 24 hrs (05/04/2025): -4870 Exam Vital Signs Temp Pulse Resp BP Pulse Ox O2 Del Method 97.3 F 83 20 124/78 95 Room Air 05/04/25 15:59 05/04/25 15:59 05/04/25 15:59 05/04/25 15:59 05/04/25 15:59 05/04/25 15:59 Narrative Exam General Appearance: Alert & Oriented X3, well-nourished male who is lying in bed in no acute distress HEENT: Skull symmetrical and atraumatic. Conjunctivae pink and moist. Pupils equal, round, reactive to light and accommodation (PERRL). External ear without lesion or discharge. Straight, nares patient, mucosa pink, no discharge. Cardio: Normal Rate and Rhythm with S1 and S2 heart sounds, distant heart sounds. Heart sounds difficult to appreciate, possible holosystolic murmur and bruit on carotid auscultation. Pedal Edema +4. No scrotal edema noted. Lungs: Symmetric with good expansion. Chest and back non-tender. Decreased vesicular breath sounds Abdomen: Non-tender, Non-distended, Normal Reactive Bowel Sounds Neuro: Alert, cooperative, oriented to person, place, and time. Speech clear. CN grossly intact. Upper motor strength 5/5 and Lower motor strength 5/5. Sensation intact. Objective Labs 05/10/25 04:34 05/11/25 05:39 Labs: Laboratory Results - last 24 hr 05/04/25 04:50 WBC 10.1 RBC 5.34 Hgb 14.9 Hct 47.3 MCV 89 MCH 27.9 MCHC 31.5 RDW Std Deviation 50.6 H Plt Count 144 Neut % (Auto) 75 Lymph % (Auto) 12 [place] % (Auto) 10 Eos % (Auto) 2 Baso % (Auto) 1 Neut # (Auto) 7.6 Lymph # (Auto) 1.2 [place] # (Auto) 1.0 H Eos # (Auto) 0.2 Baso # (Auto) 0.1 Immature Gran # (Auto) 0.06 H Absolute Nucleated RBC 0.00 Immature Gran % 1 H Nucleated RBC % 0 Sodium 142 Potassium 3.7 Chloride 95 L Carbon Dioxide 36.0 H Anion Gap 11 BUN 20 Creatinine 1.1 Estim Creat Clear Calc 90.9 eGFR > 60 BUN/Creatinine Ratio 18 Glucose 103 Calculated Osmolality 285 Calcium 8.2 L Corrected Calcium 8.6 Magnesium 1.8 Total Bilirubin 1.7 H AST 46 H ALT 29 Alkaline Phosphatase 90 Total Protein 6.0 Albumin 3.5 Globulin 2.5 Albumin/Globulin Ratio 1.4 ABG Interpretation ABG results: 05/01/25 00:59 ABG pH 7.38 ABG pCO2 41 ABG pO2 72 L ABG HCO3 24 ABG O2 Saturation 95 ABG Base Excess -1 Quality Measures Quality Measures none Assessment & Plan Assessment Current Active Medications: Generic Name Dose Route Start Last Admin Trade Name Freq PRN Reason Stop Dose Admin Acetaminophen 650 mg 05/01/25 03:42 05/04/25 08:57 Acetaminophen 325 Mg Tablet PO 05/31/25 03:41 650 mg Q6H PRN Administration PAIN OR FEVER > 101 Ascorbic Acid 500 mg 05/02/25 14:30 05/04/25 08:56 Ascorbic Acid 250 Mg Tablet PO 06/01/25 14:29 500 mg BID CHYNA Administration Aspirin 81 mg 05/01/25 09:00 05/04/25 08:57 Aspirin Ec 81 Mg Tabec PO 05/31/25 08:59 81 mg QDAY CHYNA Administration Atorvastatin Calcium 80 mg 05/02/25 21:00 05/03/25 21:01 Atorvastatin Calcium 20 Mg Tablet PO 06/01/25 20:59 80 mg HS CHYNA Administration Balsam [place] Oil 0 gm 05/02/25 09:00 05/04/25 08:58 Balsam [place] Oil (Venelex) 60 Gm Tube TOP 06/01/25 08:59 1 applicatio BID CHYNA Administration Bumetanide 1 mg 05/04/25 21:00 Bumetanide Inj 0.25 Mg/Ml Vial 4 Ml IVP 06/03/25 20:59 BID CHYNA Carvedilol 3.125 mg 05/01/25 08:00 05/01/25 17:08 Carvedilol 3.125 Mg Tablet PO 05/31/25 07:59 3.125 mg BIDWM CHYNA Administration Cephalexin HCl 1,000 mg 05/02/25 08:00 05/04/25 14:14 Cephalexin 250 Mg Capsule PO 05/09/25 07:59 1,000 mg TID CHYNA Administration Heparin Sodium (Porcine) 5,000 unit 05/01/25 06:00 05/04/25 14:14 Heparin Sod Inj 5000 Unit/Ml Vial SC 05/15/25 05:59 5,000 unit Q8HR CHYNA Administration Losartan Potassium 25 mg 05/01/25 09:00 05/01/25 09:32 Losartan Potassium 25 Mg Tablet PO 05/31/25 08:59 25 mg QDAY CHYNA Administration Melatonin 6 mg 05/03/25 20:00 05/03/25 20:57 Melatonin 3 Mg Tablet PO 06/02/25 19:59 6 mg DAILY@2000 CHYNA Administration Multivitamins 1 tab 05/02/25 14:30 05/04/25 08:57 Multivitamins Tablet PO 06/01/25 14:29 1 tab QDAY CHYNA Administration Ondansetron HCl 4 mg 05/01/25 03:42 Ondansetron Inj 2 Mg/Ml Inj 2 Ml IV 05/31/25 03:41 Q6H PRN NAUSEA OR VOMITING Protocol Sennosides 2 tab 05/01/25 03:42 05/03/25 05:27 Senna Tablet PO 05/31/25 03:41 2 tab BID PRN Administration CONSTIPATION Protocol Tamsulosin HCl 0.4 mg 05/01/25 09:00 05/04/25 08:57 Tamsulosin Hcl 0.4 Mg Capsule PO 05/31/25 08:59 0.4 mg QDAY CHYNA Administration Zinc Sulfate 220 mg 05/02/25 14:30 05/04/25 08:57 Zinc Sulfate 220 Mg Capsule PO 05/16/25 14:29 220 mg QDAY CHYNA Administration Plan The patient is a 65-year-old male with medical history of HFrEF (20-30%), BPH , former user of cocaine (last use 2003), former smoker (30 packs/year quit 2021) who was admitted on 05/01/2025 for acute CHF exacerbation. # Acute on chronic severe systolic & Diastolic Dysfunction CHF exacerbation EF 25-30% (03/15/2025) # Mild to Moderate AV Stenosis # Multifocal atrial tachycardia # Essential hypertension # Hyperlipidemia Etiology: Etiology: Past medical history of CHF in the setting of cardiomyopathy in the setting of past medical history of cocaine use disorder and smoking history vs ischemic heart condition given deep Q waves noted on EKG w/ MAT pattern. 05/03/2025: NET -4870 Total Net Balance during hospital visit: -19,300 ml (05/01/2025-05/04/2025) Dx: Echo (03/15/2025): Dilated LV. Severe systolic dysfunction. Severe global hypokinesis. Estimated EF 20-30% %. Grade 2 diastolic dysfunction. Mild RV dilatation. Mild RV systolic dysufnction. Mild to modertae AV stenosis. Low gradient due to low EF. Mean PG 12-14 mm hg but JE aroind 1.1 to 1.2 sq cm which indicates at least moderate stenosis. Mild MAC. Mild MR. Mild TR. Trace AI. Mildly dilated LA volume 40.5 mL/m?. TSH 1.20 BNP 3100. Troponin within normal limits LIpid Panel Triglycerides 67, Cholesterol 127, LDL 81, HDL 33, A1c 5.4% NYHA Class: III ASCVD: High-intensity Statins recommended Plan: -Bumex 1 mg IV BID - last 24 hrs -4870 -Aggressive Diuresis -Aspirin 81 mg PO Qday -Atorvastatin 80 mg PO HS -HOLD Carvedilol 3.125 PO BIDWM & Losartan 25 mg PO Qday -Work towards GDMT, currently holding off given blood pressure and diuresis with Bumex -Repeat BNP prior to discharge and document dry weight -K>4 and Mg >2 -Fluid Restriction 1500ml and Sodium Restriction 2 g per day -SpO >90%, support PRN #Cirrhosis, Mild Ascites hepatitis C given positive Hepatitis Panel & likely LIAO contributing to finding given BMI of 35, history of HLD, and Fatty infiltration findings on CT vs less likely secondary to alcohol use disorder as AST/ALT within normal limits. Hepatitis Panel: Positive for Hep C, pending levels AST 32 ALT 24 Total Bili 1.0/Direct 0.4-->AST 41 ALT 25 Total Bili 1.3 US Abdomen: There is 16.4 cm irregular contour fatty infiltration mild ascites Normal hepatopedal portal venous flow. Patent IVC Child Moran Score 6 points, Class A, Life Expectancy 15-20 years Plan -Hepatitis C positive, pending -Primary Team started patient on Ascorbic Acid -Patient would benefit from biopsy outpatient & follow up outpatient for Hep C #Cellulitis Bilateral erythema likely secondary to venous stasis vs cellulits less likely no pyrexia and no leukocytosis, treating empirically Plan Cephalexin 1000 PO TID (05/02/2025--) Blood cultures negative 48 hours #BPH -Resume home dose of Tamsulosin #Incidental Left Common Iliac artery, narrow MONICO (05/01/2025): Right ankle/Brachial index 1.1 and Left ankle/Brachial index 1.1 Plan -Consider outpatient exercise induced MONICO #Bilateral Parenchyal scar formation #Incidental finding Mild aneurysm Dilation abdominal Aorta -Follow up outpatient Health Maintenance: Disp: Pt is currently admitted to floors for further management of CHF , awaiting improved lower pedal edema. FEN: Cardiac Diet, Fluid Restriction 1500 ml DVT: on subQ heparin Q8HRs Code: Full code - The patient's plan was discussed with attending Dr. Dr. Krystin Montgomery MD PGY1 Internal Medicine Attending Provider Attestation/Addendum I have personally seen and examined the patient separately on the above date of service and discussed the plan of care with the resident. I reviewed the resident Dr. Sommer Montgomery consultation progress note and agree with the resident findings and plan in the note above and have also edited the documentation to reflect my findings and plan. Ernie Mcclelland M.D. Interventional Cardiology
--- NOTE | 2025-05-04 17:56 | PD.RESPRO ---
Documentation for date of: 05/04/25 Subjective Subjective Interval history: No acute events overnight.?Patient seen and examined at bedside this AM.?Patient reports no chest pain or shortness of breath. Continues to have significant urine output with a net negative of -4.8L. As patient is starting to develop some contraction alkalosis was given acetazolamide 500 mg total, bumex decreased dose from 1 mg TID to BID. Per nursing, bigeminy was noted in and out on the telemonitor therefore EKG was ordered and potassium 3.7 was repleted with 40 mEq PO and magnesium of 1.8 had 4 mg IV given. Labs and vitals were reviewed.?Tbili continues to mildly uptrend at 1.7 today. Liver US showed mildly thickened gallbladder wall of 0.5 however the patient is quite asymptomatic without any abdominal pain or discomfort even on palpation. Will continue to monitor. No further complaints at this time. Review of systems otherwise negative except what is mentioned above. Exam Vital Signs Temp Pulse Resp BP Pulse Ox O2 Del Method 97.3 F 83 20 124/78 95 Room Air 05/04/25 15:59 05/04/25 16:00 05/04/25 15:59 05/04/25 15:59 05/04/25 15:59 05/04/25 15:59 Narrative Exam General: AOx3, cooperative Skin: Intact, no cyanosis, 2+ pedal edema with erythema, extending up to dependent lower abdomen HEENT: Atraumatic/normocephalic, [place], neck supple Heart: RRR, S1 and S2 without clicks or murmurs Lungs: Mild basal crackles on auscultation bilaterally, no difficulty breathing Abdomen: Soft, nontender. Bowel sounds present . Vascular: Peripheral pulses palpable Neuro: No focal neurological deficits noted. Objective Labs 05/05/25 04:42 05/05/25 04:42 Labs: Laboratory Results - last 24 hr 05/04/25 04:50 WBC 10.1 RBC 5.34 Hgb 14.9 Hct 47.3 MCV 89 MCH 27.9 MCHC 31.5 RDW Std Deviation 50.6 H Plt Count 144 Neut % (Auto) 75 Lymph % (Auto) 12 [place] % (Auto) 10 Eos % (Auto) 2 Baso % (Auto) 1 Neut # (Auto) 7.6 Lymph # (Auto) 1.2 [place] # (Auto) 1.0 H Eos # (Auto) 0.2 Baso # (Auto) 0.1 Immature Gran # (Auto) 0.06 H Absolute Nucleated RBC 0.00 Immature Gran % 1 H Nucleated RBC % 0 Sodium 142 Potassium 3.7 Chloride 95 L Carbon Dioxide 36.0 H Anion Gap 11 BUN 20 Creatinine 1.1 Estim Creat Clear Calc 90.9 eGFR > 60 BUN/Creatinine Ratio 18 Glucose 103 Calculated Osmolality 285 Calcium 8.2 L Corrected Calcium 8.6 Magnesium 1.8 Total Bilirubin 1.7 H AST 46 H ALT 29 Alkaline Phosphatase 90 Total Protein 6.0 Albumin 3.5 Globulin 2.5 Albumin/Globulin Ratio 1.4 ABG Interpretation ABG results: 05/01/25 00:59 ABG pH 7.38 ABG pCO2 41 ABG pO2 72 L ABG HCO3 24 ABG O2 Saturation 95 ABG Base Excess -1 Quality Measures Quality Measures none Assessment & Plan Assessment Current Active Medications: Generic Name Dose Route Start Last Admin Trade Name Freq PRN Reason Stop Dose Admin Acetaminophen 650 mg 05/01/25 03:42 05/04/25 08:57 Acetaminophen 325 Mg Tablet PO 05/31/25 03:41 650 mg Q6H PRN Administration PAIN OR FEVER > 101 Ascorbic Acid 500 mg 05/02/25 14:30 05/04/25 08:56 Ascorbic Acid 250 Mg Tablet PO 06/01/25 14:29 500 mg BID CHYNA Administration Aspirin 81 mg 05/01/25 09:00 05/04/25 08:57 Aspirin Ec 81 Mg Tabec PO 05/31/25 08:59 81 mg QDAY CHYNA Administration Atorvastatin Calcium 80 mg 05/02/25 21:00 05/03/25 21:01 Atorvastatin Calcium 20 Mg Tablet PO 06/01/25 20:59 80 mg HS CHYNA Administration Balsam [place] Oil 0 gm 05/02/25 09:00 05/04/25 08:58 Balsam Yessi/[place] Oil (Venelex) 60 Gm Tube TOP 06/01/25 08:59 1 applicatio BID CHYNA Administration Bumetanide 1 mg 05/04/25 21:00 Bumetanide Inj 0.25 Mg/Ml Vial 4 Ml IVP 06/03/25 20:59 BID CHYNA Carvedilol 3.125 mg 05/01/25 08:00 05/01/25 17:08 Carvedilol 3.125 Mg Tablet PO 05/31/25 07:59 3.125 mg BIDWM CHYNA Administration Cephalexin HCl 1,000 mg 05/02/25 08:00 05/04/25 14:14 Cephalexin 250 Mg Capsule PO 05/09/25 07:59 1,000 mg TID CHYNA Administration Heparin Sodium (Porcine) 5,000 unit 05/01/25 06:00 05/04/25 14:14 Heparin Sod Inj 5000 Unit/Ml Vial SC 05/15/25 05:59 5,000 unit Q8HR CHYNA Administration Losartan Potassium 25 mg 05/01/25 09:00 05/01/25 09:32 Losartan Potassium 25 Mg Tablet PO 05/31/25 08:59 25 mg QDAY CHYNA Administration Melatonin 6 mg 05/03/25 20:00 05/03/25 20:57 Melatonin 3 Mg Tablet PO 06/02/25 19:59 6 mg DAILY@2000 CHYNA Administration Multivitamins 1 tab 05/02/25 14:30 05/04/25 08:57 Multivitamins Tablet PO 06/01/25 14:29 1 tab QDAY CHYNA Administration Ondansetron HCl 4 mg 05/01/25 03:42 Ondansetron Inj 2 Mg/Ml Inj 2 Ml IV 05/31/25 03:41 Q6H PRN NAUSEA OR VOMITING Protocol Sennosides 2 tab 05/01/25 03:42 05/03/25 05:27 Senna Tablet PO 05/31/25 03:41 2 tab BID PRN Administration CONSTIPATION Protocol Tamsulosin HCl 0.4 mg 05/01/25 09:00 05/04/25 08:57 Tamsulosin Hcl 0.4 Mg Capsule PO 05/31/25 08:59 0.4 mg QDAY CHYNA Administration Zinc Sulfate 220 mg 05/02/25 14:30 05/04/25 08:57 Zinc Sulfate 220 Mg Capsule PO 05/16/25 14:29 220 mg QDAY CHYNA Administration Plan Mr. King is a 65-year-old male with medical history of HFrEF, BPH , former user of cocaine (last use 2003), former smoker (30 packs/year quit 2021) who presented to the ED with a chief complaint of shortness of breath and bilateral lower extremity swelling. The patient stopped taking his Lasix for the last 2 weeks, Due to concern for adverse events. The patient was discharged home from hospital recently for CHF exacerbation but has not been established with a vegetable farm manager outpatient as he lives alone and does not have transport available. The patient has been doing bilateral lower extremity edema extending all the way up to his groin, and had difficulty urinating due to scrotal swelling. Denied fever, chest pain, diarrhea, melena, but endorsed cough with sputum and orthopnea. #Acute decompensated heart failure #Heart failure with reduced ejection fraction, EF 20 to 30% #Mild to moderate AV stenosis #Combined systolic and diastolic heart failure Non compliance with medications, Given IV lasix 80mg x1, Beal catheter in place, adequate urine output, patient had about 2.5 L urine output in the first 24 hours since admission. DVT ruled out. 05/02: Patient is -5.4 L in the last 24 hours, had 8.1 L urine output. 05/03: Patient is -5.6 L, total urine output 7.7 L in the last 24 hours 05/04: Patient is -4.8 L Echocardiogram March 2025 shows Dialated cardiomyopathy. Dilated LV. Severe systolic dysfunction. Severe global hypokinesis. Estimated EF 20-30% %. Grade 2 diastolic dysfunction. Mild RV dilatation. Mild RV systolic dysufnction. Mild to modertae AV stenosis. Low gradient due to low EF. Mean PG 12-14 mm hg but JE aroind 1.1 to 1.2 sq cm which indicates at least moderate stenosis. Mild MAC. Mild MR. Mild TR. Trace AI. Mildly dilated LA volume 40.5 mL/m?. Plan: - Changed IV bumex 1 mg every 12 hours - Hold Coreg 3.125 mg bid and losartan 25 mg - introduce further GDMT as tolerated, per cardiology recommendations - Aspirin 81 mg qday - Atorvastatin 80mg qhs - Consulted cardiology, following, appreciate recommendations #Bigeminy, PVCs On telemonitor in and out 05/04/2025 EKG ordered showed similar findings as previous -K and Mag replaced to maintain >4.0 and >2.0 respectively #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 Bilateral pedal pulses palpated, no evidence of limb ischemia MONICO (05/01/2025): Right ankle/Brachial index 1.1 and Left ankle/Brachial index 1.1 Plan: - Continue outpatient follow-up with vascular surgery #Decompensated Cirrhosis #MASLD, cardiac cirrhosis #Positive hep C antibody #Hyperbilirubinemia Pt reported no prior history of cirrhosis, hepatitis panel shows positive hep C antibody, possible past infection, other multifactorial etiology, possible MASLD and underlying cardiac cirrhosis Abdomen US Shows: Cholelithiasis, Abnormal thickening of the gallbladder wall 0.6 cm, consider HIDA scan or MRCP follow-up, Common bile duct 0.7 cm no stones, Cirrhosis, fatty infiltration, Mild ascites HIV negative 05/04/2025 RUQ US showed mild gallbladder wall thickened 0.5 cm Patient does have a fatty liver Less concerning for acute obstructive cause, patient does not have any pain, examination unremarkable -Monitor liver panel -Follow CMP daily -Pending hepatitis C quant -Establish outpatient treatment #Cellulitis Received 2 doses of IV ceftriaxone 1g qday Urinalysis shows contamination, squamous epithelial cells more than 20 - Continue patient on Keflex p.o. (05/02- - Monitor for signs of sepsis #BPH - Continue home dose tamsulosin #Hyperlipidemia - Continue atorvastatin 40 mg twice Disposition: Telemetry DVT prophylaxis: Heparin subcut GI prophylaxis: none Diet:cardiac, fluid restriction 1000 cc Lines: PIV CODE STATUS: Full Code Patient plan of care was discussed with the attending physician, Dr. Mohan. Aaliyah Lanier, PGY-2 Attending Provider Attestation/Addendum I attest that I was physically present for the evaluation, physical examination, lab and imaging review of the patient with the residents. I discussed the case with the residents and agree with the findings and plans of care as documented above. At bedside today, patient states he is feeling well and does not have new complaints. Had significant urine output with net negative balance of 4870 cc in last 24 hours. Received acetazolamide in the morning for contraction alkalosis. Also received potassium and magnesium replacement. Vital signs are stable, saturating well on room air. Total bilirubin noted to be uptrending, 1.7 today, we will obtain liver ultrasound. Discussed with cardiology, will decrease Lasix dosing to 1 mg Bumex twice daily, recommended to continue diuresis and monitor closely, appreciate recommendations. La Mohan MD
[2025-05-04] MEDS: MELATONIN 3 MG TABLET 6 MG PO (19:44)
[2025-05-04] MEDS: ATORVASTATIN CALCIUM 20 MG TABLET 80 MG PO (21:16)
[2025-05-05] VITALS (10 sets, daily range): BP systolic 90–127; BP diastolic 71–94; PULSE 90–106; RESP 12–22; TEMP 36.2–36.3; O2SAT 94–95
[2025-05-05] MEDS: cephALEXin 250 MG CAPSULE 1000 MG PO ×3 (05:20→21:31)
[2025-05-05] MEDS: HEPARIN SOD INJ 5000 UNIT/ML VIAL SC ×3 (05:21→21:31)
[2025-05-05 05:25] LABS: Alanine Aminotransferase 30 U/L (10-49); Albumin, Serum 3.6 gm/dL (3.4-4.8); Albumin/Globulin Ratio 1.3 (1.2-2.2); Alkaline Phosphatase 94 U/L (46-116); Anion Gap 9 (7-16); Aspartate Amino Transferase 48 U/L (0-34); BUN/Creatinine Ratio 17 Ratio (12-20); Bilirubin,Total 1.7 mg/dL (0.3-1.2); Blood Urea Nitrogen 19 mg/dL (9-23); Calcium 8.3 mg/dL (8.3-10.6); Calcium (Corrected) 8.6 mg/dL (8.5-10.1); Carbon Dioxide 32.2 mMol/L (20.0-31.0); Chloride 98 mMol/L (98-107); Creatinine (Component) 1.1 mg/dL (0.6-1.3); Estimated Creatinine Clearance 90.9 mL/min (>60); Globulin 2.7 gm/dL (2.3-3.5); Glucose 111 mg/dL (74-106); Magnesium 2.3 mg/dL (1.6-2.6); Osmolality,Calculated 280 (275-295); Potassium 3.8 mMol/L (3.4-5.1); Sodium 139 mMol/L (136-145); Total Protein 6.3 gm/dL (5.7-8.2); eGFR > 60 See Note
[2025-05-05 06:09] LABS: Basophils # (Auto) 0.1 Thou/mm3 (0.0-0.2); Basophils % (Auto) 1 % (0-2.5); Eosinophils # (Auto) 0.1 Thou/mm3 (0.0-0.5); Eosinophils % (Auto) 1 % (0-10); Hemoglobin 15.1 g/dL (13.5-16.0); Immature Granulocytes % (Auto) 1 % (0-0); Immature Granulocytes Auto 0.05 Thou/mm3 (0.00-0.00); Lymphocytes # (Auto) 1.1 Thou/mm3 (1.0-4.8); Lymphocytes % (Auto) 11 % (10-50); Mean Corpuscular HGB Conc 33.6 g/dl (31.0-37.0); Mean Corpuscular Hemoglobin 28.3 pg (25.0-35.0); Mean Corpuscular Volume 84 fL (80-100); Monocytes # (Auto) 1.2 Thou/mm3 (0.0-0.8); Monocytes % (Auto) 12 % (0-12); Neutrophils # (Auto) 7.9 Thou/mm3 (1.8-7.7); Neutrophils % (Auto) 76 % (37-80); Nucleated Red Blood Cell % 0 /100 WBC (0); Platelet Count 137 Thou/mm3 (140-440); Red Blood Count 5.34 Miln/mm3 (4.50-5.90); White Blood Count 10.5 Thou/mm3 (3.8-10.6)
[2025-05-05] MEDS: ZINC SULFATE 220 MG CAPSULE PO (08:42)
[2025-05-05] MEDS: ASPIRIN EC 81 MG TABEC PO (08:42)
[2025-05-05] MEDS: TAMSULOSIN HCL 0.4 MG CAPSULE PO (08:42)
[2025-05-05] MEDS: MULTIVITAMINS TABLET 1 TAB PO (08:42)
[2025-05-05] MEDS: ACETAzolaMIDE 250 MG TABLET 500 MG PO (08:42)
[2025-05-05] MEDS: ASCORBIC ACID 250 MG TABLET 500 MG PO ×2 (08:42→20:31)
[2025-05-05] MEDS: BUMETANIDE INJ 0.25 MG/ML VIAL 4 ML 1 MG IVP ×2 (08:43→20:31)
[2025-05-05] MEDS: BALSAM PERU/CASTOR OIL (Venelex) 60 GM TUBE TOP ×2 (08:48→20:33)
--- NOTE | 2025-05-05 13:45 | PC.SS ---
Addendum entered by Genna Pozo 05/05/25 15:12: Per bedside nurse, Vlad pt is not on Physic, anxiety, or depression medications. PASRR assessment has been completed. SS has provided verbal options for SNF to [facility], [facility], [facility], [facility], and [facility]. Patient's choice is [facility]. SS has spoken to Lien from [facility] who has accepted pt. Lien is starting insurance authorization. PASRR assessment has been sent using [facility] to [facility] [place]. Pt is aware if insurance does not approve SNF then he will return home or he can pay privately for SNF. Pt will return home if insurance declines SNF placement. [facility] known as [facility] [place], [place] [id number] Detention Facility Yes 05/05/2025 13:58 05/05/2025 13:56 We can accept this patient. Thank you for your referral ?(2) [facility] [address] [place], [place] [id number] Detention Facility Yes 05/05/2025 14:10 05/05/2025 13:56 We can accept this patient. Thank you for your referral ?(1) [facility], [place] [id number] Detention Facility Considering 05/05/2025 14:23 05/05/2025 13:56 Pending nurse evaluation ?(1) [facility] [place] [address] Detention Facility Yes 05/05/2025 13:57 05/05/2025 13:56 We can accept this patient. Thank you for your referral ?(1) [facility] [place] [address] Detention Facility 05/05/2025 13:56 ?(1) [facility] [place], [place] [id number] Detention Facility No Original Note: SS met with pt to provide him with appointment time and pt is now requesting SNF. Pt is aware SS offered SNF during initial assessment and he kept refusing. Pt does not have preference for SNF. Pt is aware his insurance requires authorization if they approve SNF.
--- NOTE | 2025-05-05 14:59 | ESPR_ITS ---
Documentation for date of: 05/05/25 Subjective Subjective Interval history: No acute events overnight.?Patient seen and examined at bedside this AM.?Patient reports that he continues to not have any symptoms, denies chest pain, shortness of breath. Labs and vitals were reviewed.?Creatinine stable. Patient continues on room air. No further complaints at this time. Patient has been getting up and walking around the room and unit. Continues to have significant output at -5.3L net output in last 24 hours. IV diuresis is to be continued until Friday or Friday per Cardio recommendation. Review of systems otherwise negative except what is mentioned above. Exam Vital Signs Temp Pulse Resp BP Pulse Ox O2 Del Method 97.3 F 95 18 127/94 H 95 Room Air 05/05/25 12:00 05/05/25 12:00 05/05/25 12:00 05/05/25 12:00 05/05/25 12:00 05/05/25 12:00 Narrative Exam General: AOx3, cooperative Skin: Intact, no cyanosis, 2+ pedal edema with erythema, improved, extending up to dependent lower abdomen HEENT: Atraumatic/normocephalic, CYNTHIA, neck supple Heart: RRR, S1 and S2 without clicks or murmurs Lungs: Mild basal crackles on auscultation bilaterally, no difficulty breathing Abdomen: Soft, nontender. Bowel sounds present . Vascular: Peripheral pulses palpable Neuro: No focal neurological deficits noted. Objective Labs 05/06/25 04:55 05/06/25 04:55 Labs: Laboratory Results - last 24 hr 05/05/25 04:42 WBC 10.5 RBC 5.34 Hgb 15.1 Hct 45.0 MCV 84 MCH 28.3 MCHC 33.6 RDW Std Deviation 48.0 H Plt Count 137 L Neut % (Auto) 76 Lymph % (Auto) 11 [place] % (Auto) 12 Eos % (Auto) 1 Baso % (Auto) 1 Neut # (Auto) 7.9 H Lymph # (Auto) 1.1 [place] # (Auto) 1.2 H Eos # (Auto) 0.1 Baso # (Auto) 0.1 Immature Gran # (Auto) 0.05 H Absolute Nucleated RBC 0.00 Immature Gran % 1 H Nucleated RBC % 0 Sodium 139 Potassium 3.8 Chloride 98 Carbon Dioxide 32.2 H Anion Gap 9 BUN 19 Creatinine 1.1 Estim Creat Clear Calc 90.9 eGFR > 60 BUN/Creatinine Ratio 17 Glucose 111 H Calculated Osmolality 280 Calcium 8.3 Corrected Calcium 8.6 Magnesium 2.3 Total Bilirubin 1.7 H AST 48 H ALT 30 Alkaline Phosphatase 94 Total Protein 6.3 Albumin 3.6 Globulin 2.7 Albumin/Globulin Ratio 1.3 ABG Interpretation ABG results: 05/01/25 00:59 ABG pH 7.38 ABG pCO2 41 ABG pO2 72 L ABG HCO3 24 ABG O2 Saturation 95 ABG Base Excess -1 Quality Measures Quality Measures none Assessment & Plan Assessment Current Active Medications: Generic Name Dose Route Start Last Admin Trade Name Freq PRN Reason Stop Dose Admin Acetaminophen 650 mg 05/01/25 03:42 05/04/25 08:57 Acetaminophen 325 Mg Tablet PO 05/31/25 03:41 650 mg Q6H PRN Administration PAIN OR FEVER > 101 Ascorbic Acid 500 mg 05/02/25 14:30 05/05/25 08:42 Ascorbic Acid 250 Mg Tablet PO 06/01/25 14:29 500 mg BID CHYNA Administration Aspirin 81 mg 05/01/25 09:00 05/05/25 08:42 Aspirin Ec 81 Mg Tabec PO 05/31/25 08:59 81 mg QDAY CHYNA Administration Atorvastatin Calcium 80 mg 05/02/25 21:00 05/04/25 21:16 Atorvastatin Calcium 20 Mg Tablet PO 06/01/25 20:59 80 mg HS CHYNA Administration Balsam [place] Oil 0 gm 05/02/25 09:00 05/05/25 08:48 Balsam [place]ess[place] Oil (Venelex) 60 Gm Tube TOP 06/01/25 08:59 1 applicatio BID CHYNA Administration Bumetanide 1 mg 05/04/25 21:00 05/05/25 08:43 Bumetanide Inj 0.25 Mg/Ml Vial 4 Ml IVP 06/03/25 20:59 1 mg BID CHYNA Administration Carvedilol 3.125 mg 05/01/25 08:00 05/01/25 17:08 Carvedilol 3.125 Mg Tablet PO 05/31/25 07:59 3.125 mg BIDWM CHYNA Administration Cephalexin HCl 1,000 mg 05/02/25 08:00 05/05/25 13:20 Cephalexin 250 Mg Capsule PO 05/09/25 07:59 1,000 mg TID CHYNA Administration Heparin Sodium (Porcine) 5,000 unit 05/01/25 06:00 05/05/25 13:20 Heparin Sod Inj 5000 Unit/Ml Vial SC 05/15/25 05:59 5,000 unit Q8HR CHYNA Administration Losartan Potassium 25 mg 05/01/25 09:00 05/01/25 09:32 Losartan Potassium 25 Mg Tablet PO 05/31/25 08:59 25 mg QDAY CHYNA Administration Melatonin 6 mg 05/03/25 20:00 05/04/25 19:44 Melatonin 3 Mg Tablet PO 06/02/25 19:59 6 mg DAILY@2000 CHYNA Administration Multivitamins 1 tab 05/02/25 14:30 05/05/25 08:42 Multivitamins Tablet PO 06/01/25 14:29 1 tab QDAY CHYNA Administration Ondansetron HCl 4 mg 05/01/25 03:42 Ondansetron Inj 2 Mg/Ml Inj 2 Ml IV 05/31/25 03:41 Q6H PRN NAUSEA OR VOMITING Protocol Sennosides 2 tab 05/01/25 03:42 05/03/25 05:27 Senna Tablet PO 05/31/25 03:41 2 tab BID PRN Administration CONSTIPATION Protocol Tamsulosin HCl 0.4 mg 05/01/25 09:00 05/05/25 08:42 Tamsulosin Hcl 0.4 Mg Capsule PO 05/31/25 08:59 0.4 mg QDAY CHYNA Administration Zinc Sulfate 220 mg 05/02/25 14:30 05/05/25 08:42 Zinc Sulfate 220 Mg Capsule PO 05/16/25 14:29 220 mg QDAY CHYNA Administration Plan Mr. King is a 65-year-old male with medical history of HFrEF, BPH , former user of cocaine (last use 2003), former smoker (30 packs/year quit 2021) who presented to the ED with a chief complaint of shortness of breath and bilateral lower extremity swelling. The patient stopped taking his Lasix for the last 2 weeks, Due to concern for adverse events. The patient was discharged home from hospital recently for CHF exacerbation but has not been established with a document specialist outpatient as he lives alone and does not have transport available. The patient has been doing bilateral lower extremity edema extending all the way up to his groin, and had difficulty urinating due to scrotal swelling. Denied fever, chest pain, diarrhea, melena, but endorsed cough with sputum and orthopnea. #Acute decompensated heart failure #Heart failure with reduced ejection fraction, EF 20 to 30% #Mild to moderate AV stenosis #Combined systolic and diastolic heart failure Non compliance with medications, Given IV lasix 80mg x1, Beal catheter in place, adequate urine output, patient had about 2.5 L urine output in the first 24 hours since admission. DVT ruled out. 05/02: Patient is -5.4 L in the last 24 hours, had 8.1 L urine output. 05/03: Patient is -5.6 L, total urine output 7.7 L in the last 24 hours 05/04: Patient is -4.8 L 05/05: Patient is -5.3 L Echocardiogram March 2025 shows Dialated cardiomyopathy. Dilated LV. Severe systolic dysfunction. Severe global hypokinesis. Estimated EF 20-30% %. Grade 2 diastolic dysfunction. Mild RV dilatation. Mild RV systolic dysufnction. Mild to modertae AV stenosis. Low gradient due to low EF. Mean PG 12-14 mm hg but JE aroind 1.1 to 1.2 sq cm which indicates at least moderate stenosis. Mild MAC. Mild MR. Mild TR. Trace AI. Mildly dilated LA volume 40.5 mL/m?. Plan: - Continue IV bumex 1 mg every 12 hours - Hold Coreg 3.125 mg bid and losartan 25 mg - Introduce further GDMT as tolerated, per cardiology recommendations - Aspirin 81 mg qday - Atorvastatin 80mg qhs - Consulted cardiology, following, appreciate recommendations #Bigeminy, PVCs On telemonitor in and out 05/04/2025 EKG ordered showed similar findings as previous -K and Mag replaced to maintain >4.0 and >2.0 respectively #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 Bilateral pedal pulses palpated, no evidence of limb ischemia MONICO (05/01/2025): Right ankle/Brachial index 1.1 and Left ankle/Brachial index 1.1 Plan: - Continue outpatient follow-up with vascular surgery #Decompensated Cirrhosis #MASLD, cardiac cirrhosis #Positive hep C antibody #Hyperbilirubinemia Pt reported no prior history of cirrhosis, hepatitis panel shows positive hep C antibody, possible past infection, other multifactorial etiology, possible MASLD and underlying cardiac cirrhosis Abdomen US Shows: Cholelithiasis, Abnormal thickening of the gallbladder wall 0.6 cm, consider HIDA scan or MRCP follow-up, Common bile duct 0.7 cm no stones, Cirrhosis, fatty infiltration, Mild ascites HIV negative 05/04/2025 RUQ US showed mild gallbladder wall thickened 0.5 cm Patient does have a fatty liver Less concerning for acute obstructive cause, patient does not have any pain, examination unremarkable -Monitor liver panel -Follow CMP daily -Pending hepatitis C quant -Establish outpatient treatment #Cellulitis Received 2 doses of IV ceftriaxone 1g qday Urinalysis shows contamination, squamous epithelial cells more than 20 - Continue patient on Keflex p.o. (05/02- - Monitor for signs of sepsis #BPH - Continue home dose tamsulosin #Hyperlipidemia - Continue atorvastatin 40 mg twice Disposition: Telemetry DVT prophylaxis: Heparin subcut GI prophylaxis: none Diet:cardiac, fluid restriction 1000 cc Lines: PIV CODE STATUS: Full Code Patient plan of care was discussed with the attending physician, Dr. Mohan. Aaliyah Lanier, PGY-2 Attending Provider Attestation/Addendum I attest that I was physically present for the evaluation, physical examination, lab and imaging review of the patient with the residents. I discussed the case with the residents and agree with the findings and plans of care as documented above. At bedside today, patient states she is feeling well and does not have new complaints. Resting comfortably and saturating well on room air. Continues to have pedal edema but improving significantly. Continues to have significant urinary output, 5.3 L in last 24 hours. Cardiology following closely, recommended continuation of IV Bumex every 12 hours. Continues to be on Keflex for cellulitis. La Mohan MD
--- NOTE | 2025-05-05 15:12 | PC.SS ---
SS has made pt an appointment with Dr. Marino from [facility] in [place] (patient's choice to follow up with PCP in [facility] [place]) for Sunday May 11, 2025 at 11am. If pt d/c to SNF PCP appointment will need to cancelled.
--- NOTE | 2025-05-05 15:22 | PC.SS ---
SS has sent [facility] referral. SS has provided pt with [facility].
--- NOTE | 2025-05-05 15:56 | PD.RESPRO ---
Documentation for date of: 05/05/25 Subjective Subjective Interval history: Patient is a 65-year-old male with a past medical history of CHF HFrEF 25 to 30% (03/15/2025), former history of heart disease, cocaine use disorder, and past medical history cigarette use, who presented with a chief complaint of lower swelling and increased shortness of breath. Patient stated he stopped taking his medication for about 2 weeks secondary to increased anxiety in regards to side effects, patient was unable to clearly define concern. Increased shortness of breath upon ambulation, requiring patient to sleep in a sitting position, and shortness of breath wakes him up from sleep. Increased shortness of breath with ambulation. Patient describes symptoms related to orthopnea and paroxysmal nocturnal dyspnea. Denied palpitations. Patient denied chest pain or syncopal event. Patient denied recent history of sick contacts. Denied pyrexia at home. Denied past history of COPD. Denied worsening cough. Patient decided to seek further medical attention from the ER as swelling increased into lower quadrant abdomen and increased scrotal edema noted prior to admission. 05/01/2025: Patient complaining of worsening lower pedal edema to upper thigh, concern for anasarca, as patient reported increased swelling to abdomen at home. Patient stated that lower pedal edema worsened over the past few days even extending to lower abdomen. Positive for paroxysmal nocturnal dyspnea and Orthopnea. Patient sleeps in sitting position.Patient was anxious about taking his lasix/water pills and stopped use. Patient unable to verbalize specifically about the lasix made him nervous. Per patient history increase in weight over the past few weeks from 250 lbs to 275 lbs. Patient lives alone at home. 05/02/2025: No overnight events reported. Patient denies chest pain or shortness of breath. Improved lower pedal edema. Patinet stated that he would like to start ambulating, likely benefit from PT. Continue to diuersis. Fluid restrict patient. Intake 2420/Output 7100/ Net negative -4680ml 05/03/2025: No overnight events. Patient denied chest pain or SOB. Patient has remianed Afebrile overnight. 1 bowel movement overnight. Improved uppper thigh swelling, but edema still +3. Mild conraction alkalosis noted, continue diuresis. Last 24 Hours:Net -3210 05/04/2025: No overnight events. Patient denied chest pain or SOB. Lower pedal edema 3+ with improvement at upper thigh. Bumex decreased to 1 mg IV BID and Diamox 500 mg oral given Total Net Balance 24 hrs (05/04/2025): -4870 05/05/2025: No overnight events. Pateint denied chest pain or dyspnea. Lower edema 3+,improvement in upper thighs. Patient ambulated out of the bed to chair. Vitals stable. Continue to diuresis. Diamox X 1. Exam Vital Signs Temp Pulse Resp BP Pulse Ox O2 Del Method 97.3 F 95 18 127/94 H 95 Room Air 05/05/25 15:50 05/05/25 15:50 05/05/25 15:50 05/05/25 15:50 05/05/25 15:50 05/05/25 15:50 Narrative Exam General Appearance: Alert & Oriented X3, well-nourished male who is lying in bed in no acute distress HEENT: Skull symmetrical and atraumatic. Conjunctivae pink and moist. Pupils equal, round, reactive to light and accommodation (PERRL). External ear without lesion or discharge. Straight, nares patient, mucosa pink, no discharge. Cardio: Normal Rate and Rhythm with S1 and S2 heart sounds, distant heart sounds. Heart sounds difficult to appreciate, possible holosystolic murmur and bruit on carotid auscultation. Pedal Edema +4. No scrotal edema noted. Lungs: Symmetric with good expansion. Chest and back non-tender. Decreased vesicular breath sounds Abdomen: Non-tender, Non-distended, Normal Reactive Bowel Sounds Neuro: Alert, cooperative, oriented to person, place, and time. Speech clear. CN grossly intact. Upper motor strength 5/5 and Lower motor strength 5/5. Sensation intact. Objective Labs 05/06/25 04:55 05/06/25 04:55 Labs: Laboratory Results - last 24 hr 05/05/25 04:42 WBC 10.5 RBC 5.34 Hgb 15.1 Hct 45.0 MCV 84 MCH 28.3 MCHC 33.6 RDW Std Deviation 48.0 H Plt Count 137 L Neut % (Auto) 76 Lymph % (Auto) 11 [place] % (Auto) 12 Eos % (Auto) 1 Baso % (Auto) 1 Neut # (Auto) 7.9 H Lymph # (Auto) 1.1 [place] # (Auto) 1.2 H Eos # (Auto) 0.1 Baso # (Auto) 0.1 Immature Gran # (Auto) 0.05 H Absolute Nucleated RBC 0.00 Immature Gran % 1 H Nucleated RBC % 0 Sodium 139 Potassium 3.8 Chloride 98 Carbon Dioxide 32.2 H Anion Gap 9 BUN 19 Creatinine 1.1 Estim Creat Clear Calc 90.9 eGFR > 60 BUN/Creatinine Ratio 17 Glucose 111 H Calculated Osmolality 280 Calcium 8.3 Corrected Calcium 8.6 Magnesium 2.3 Total Bilirubin 1.7 H AST 48 H ALT 30 Alkaline Phosphatase 94 Total Protein 6.3 Albumin 3.6 Globulin 2.7 Albumin/Globulin Ratio 1.3 ABG Interpretation ABG results: 05/01/25 00:59 ABG pH 7.38 ABG pCO2 41 ABG pO2 72 L ABG HCO3 24 ABG O2 Saturation 95 ABG Base Excess -1 Quality Measures Quality Measures none Assessment & Plan Assessment Current Active Medications: Generic Name Dose Route Start Last Admin Trade Name Freq PRN Reason Stop Dose Admin Acetaminophen 650 mg 05/01/25 03:42 05/04/25 08:57 Acetaminophen 325 Mg Tablet PO 05/31/25 03:41 650 mg Q6H PRN Administration PAIN OR FEVER > 101 Ascorbic Acid 500 mg 05/02/25 14:30 05/05/25 08:42 Ascorbic Acid 250 Mg Tablet PO 06/01/25 14:29 500 mg BID CHYNA Administration Aspirin 81 mg 05/01/25 09:00 05/05/25 08:42 Aspirin Ec 81 Mg Tabec PO 05/31/25 08:59 81 mg QDAY CHYNA Administration Atorvastatin Calcium 80 mg 05/02/25 21:00 05/04/25 21:16 Atorvastatin Calcium 20 Mg Tablet PO 06/01/25 20:59 80 mg HS CHYNA Administration Balsam [place] Oil 0 gm 05/02/25 09:00 05/05/25 08:48 Balsam Yessi/[place] Oil (Venelex) 60 Gm Tube TOP 06/01/25 08:59 1 applicatio BID CHYNA Administration Bumetanide 1 mg 05/04/25 21:00 05/05/25 08:43 Bumetanide Inj 0.25 Mg/Ml Vial 4 Ml IVP 06/03/25 20:59 1 mg BID CHYNA Administration Carvedilol 3.125 mg 05/01/25 08:00 05/01/25 17:08 Carvedilol 3.125 Mg Tablet PO 05/31/25 07:59 3.125 mg BIDWM CHYNA Administration Cephalexin HCl 1,000 mg 05/02/25 08:00 05/05/25 13:20 Cephalexin 250 Mg Capsule PO 05/09/25 07:59 1,000 mg TID CHYNA Administration Heparin Sodium (Porcine) 5,000 unit 05/01/25 06:00 05/05/25 13:20 Heparin Sod Inj 5000 Unit/Ml Vial SC 05/15/25 05:59 5,000 unit Q8HR CHYNA Administration Losartan Potassium 25 mg 05/01/25 09:00 05/01/25 09:32 Losartan Potassium 25 Mg Tablet PO 05/31/25 08:59 25 mg QDAY CHYNA Administration Melatonin 6 mg 05/03/25 20:00 05/04/25 19:44 Melatonin 3 Mg Tablet PO 06/02/25 19:59 6 mg DAILY@2000 CHYNA Administration Multivitamins 1 tab 05/02/25 14:30 05/05/25 08:42 Multivitamins Tablet PO 06/01/25 14:29 1 tab QDAY CHYNA Administration Ondansetron HCl 4 mg 05/01/25 03:42 Ondansetron Inj 2 Mg/Ml Inj 2 Ml IV 05/31/25 03:41 Q6H PRN NAUSEA OR VOMITING Protocol Sennosides 2 tab 05/01/25 03:42 05/03/25 05:27 Senna Tablet PO 05/31/25 03:41 2 tab BID PRN Administration CONSTIPATION Protocol Tamsulosin HCl 0.4 mg 05/01/25 09:00 05/05/25 08:42 Tamsulosin Hcl 0.4 Mg Capsule PO 05/31/25 08:59 0.4 mg QDAY CHYNA Administration Zinc Sulfate 220 mg 05/02/25 14:30 05/05/25 08:42 Zinc Sulfate 220 Mg Capsule PO 05/16/25 14:29 220 mg QDAY CHYNA Administration Plan The patient is a 65-year-old male with medical history of HFrEF (20-30%), BPH , former user of cocaine (last use 2003), former smoker (30 packs/year quit 2021) who was admitted on 05/01/2025 for acute CHF exacerbation. # Acute on chronic severe systolic & Diastolic Dysfunction CHF exacerbation EF 25-30% (03/15/2025) # Mild to Moderate AV Stenosis # Multifocal atrial tachycardia # Essential hypertension # Hyperlipidemia Etiology: Etiology: Past medical history of CHF in the setting of cardiomyopathy in the setting of past medical history of cocaine use disorder and smoking history vs ischemic heart condition given deep Q waves noted on EKG w/ MAT pattern. 05/05/2025: NET -5330 Total Net Balance during hospital visit: -22, 300 ml (05/01/2025-05/05/2025) Dx: Echo (03/15/2025): Dilated LV. Severe systolic dysfunction. Severe global hypokinesis. Estimated EF 20-30% %. Grade 2 diastolic dysfunction. Mild RV dilatation. Mild RV systolic dysufnction. Mild to modertae AV stenosis. Low gradient due to low EF. Mean PG 12-14 mm hg but JE aroind 1.1 to 1.2 sq cm which indicates at least moderate stenosis. Mild MAC. Mild MR. Mild TR. Trace AI. Mildly dilated LA volume 40.5 mL/m?. TSH 1.20 BNP 3100. Troponin within normal limits LIpid Panel Triglycerides 67, Cholesterol 127, LDL 81, HDL 33, A1c 5.4% NYHA Class: III ASCVD: High-intensity Statins recommended Plan: -Diamox X 1 (05/05/2025) -Bumex 1 mg IV BID - last 24 hrs -5330 -Aggressive Diuresis -Aspirin 81 mg PO Qday -Atorvastatin 80 mg PO HS -HOLD Carvedilol 3.125 PO BIDWM & Losartan 25 mg PO Qday -[facility], currently holding off given blood pressure and diuresis with Bumex -Repeat BNP prior to discharge and document dry weight -K>4 and Mg >2 -Fluid Restriction 1500ml and Sodium Restriction 2 g per day -SpO >90%, support PRN #Cirrhosis, Mild Ascites hepatitis C given positive Hepatitis Panel & likely LIAO contributing to finding given BMI of 35, history of HLD, and Fatty infiltration findings on CT vs less likely secondary to alcohol use disorder as AST/ALT within normal limits. Hepatitis Panel: Positive for Hep C, PCR AST 32 ALT 24 Total Bili 1.0/Direct 0.4-->AST 41 ALT 25 Total Bili 1.3 US Abdomen: There is 16.4 cm irregular contour fatty infiltration mild ascites Normal hepatopedal portal venous flow. Patent IVC Child Moran Score 6 points, Class A, Life Expectancy 15-20 years Plan -Hepatitis C positive, pending -Primary Team started patient on Ascorbic Acid -Patient would benefit from biopsy outpatient & follow up outpatient for Hep C #Cellulitis Bilateral erythema likely secondary to venous stasis vs cellulits less likely no pyrexia and no leukocytosis, treating empirically Plan Cephalexin 1000 PO TID (05/02/2025--) Blood cultures negative 48 hours #BPH -Resume home dose of Tamsulosin #Incidental Left Common Iliac artery, narrow MONICO (05/01/2025): Right ankle/Brachial index 1.1 and Left ankle/Brachial index 1.1 Plan -Consider outpatient exercise induced MONICO #Bilateral Parenchyal scar formation #Incidental finding Mild aneurysm Dilation abdominal Aorta -Follow up outpatient Health Maintenance: Disp: Pt is currently admitted to floors for further management of CHF , awaiting improved lower pedal edema. FEN: Cardiac Diet, Fluid Restriction 1500 ml DVT: on subQ heparin Q8HRs Code: Full code - The patient's plan was discussed with attending Dr. Dr. Krystin Montgomery MD PGY1 Internal Medicine Attending Provider Attestation/Addendum I have personally seen and examined the patient separately on the above date of service and discussed the plan of care with the resident. I reviewed the resident Dr. Sommer Montgomery consultation progress note and agree with the resident findings and plan in the note above and have also edited the documentation to reflect my findings and plan. Ernie Mcclelland M.D. Interventional Cardiology
[2025-05-05 17:51] LABS: HCV RNA, PCR 2500000 IU/mL
[2025-05-05] MEDS: ATORVASTATIN CALCIUM 20 MG TABLET 80 MG PO (20:29)
[2025-05-05] MEDS: MELATONIN 3 MG TABLET 6 MG PO (20:30)
[2025-05-06] VITALS (8 sets, daily range): BP systolic 103–118; BP diastolic 67–83; PULSE 80–105; RESP 15–21; TEMP 36.1–36.5; O2SAT 93–96; BMI 35.2; BMI 14.0
[2025-05-06] MEDS: cephALEXin 250 MG CAPSULE 1000 MG PO ×3 (05:16→22:19)
[2025-05-06] MEDS: HEPARIN SOD INJ 5000 UNIT/ML VIAL SC ×3 (05:17→22:19)
[2025-05-06 05:52] LABS: Basophils # (Auto) 0.1 Thou/mm3 (0.0-0.2); Basophils % (Auto) 1 % (0-2.5); Eosinophils # (Auto) 0.3 Thou/mm3 (0.0-0.5); Eosinophils % (Auto) 3 % (0-10); Hematocrit 45.9 % (41.0-53.0); Hemoglobin 14.8 g/dL (13.5-16.0); Immature Granulocytes % (Auto) 0 % (0-0); Immature Granulocytes Auto 0.03 Thou/mm3 (0.00-0.00); Lymphocytes # (Auto) 1.3 Thou/mm3 (1.0-4.8); Lymphocytes % (Auto) 14 % (10-50); Mean Corpuscular HGB Conc 32.2 g/dl (31.0-37.0); Mean Corpuscular Hemoglobin 28.4 pg (25.0-35.0); Mean Corpuscular Volume 88 fL (80-100); Monocytes # (Auto) 0.9 Thou/mm3 (0.0-0.8); Monocytes % (Auto) 11 % (0-12); Neutrophils # (Auto) 6.3 Thou/mm3 (1.8-7.7); Neutrophils % (Auto) 71 % (37-80); Nucleated Red Blood Cell % 0 /100 WBC (0); Platelet Count 147 Thou/mm3 (140-440); Red Blood Count 5.22 Miln/mm3 (4.50-5.90); White Blood Count 8.9 Thou/mm3 (3.8-10.6)
[2025-05-06 06:19] LABS: Alanine Aminotransferase 33 U/L (10-49); Albumin, Serum 3.6 gm/dL (3.4-4.8); Albumin/Globulin Ratio 1.4 (1.2-2.2); Alkaline Phosphatase 95 U/L (46-116); Anion Gap 11 (7-16); Aspartate Amino Transferase 59 U/L (0-34); BUN/Creatinine Ratio 21 Ratio (12-20); Bilirubin,Total 1.4 mg/dL (0.3-1.2); Blood Urea Nitrogen 23 mg/dL (9-23); Calcium 8.9 mg/dL (8.3-10.6); Calcium (Corrected) 9.2 mg/dL (8.5-10.1); Carbon Dioxide 27.1 mMol/L (20.0-31.0); Chloride 98 mMol/L (98-107); Creatinine (Component) 1.1 mg/dL (0.6-1.3); Estimated Creatinine Clearance 90.9 mL/min (>60); Globulin 2.5 gm/dL (2.3-3.5); Glucose 96 mg/dL (74-106); Magnesium 2.2 mg/dL (1.6-2.6); Osmolality,Calculated 275 (275-295); Potassium 3.4 mMol/L (3.4-5.1); Sodium 136 mMol/L (136-145); Total Protein 6.1 gm/dL (5.7-8.2); eGFR > 60 See Note
[2025-05-06] MEDS: MULTIVITAMINS TABLET 1 TAB PO (08:02)
[2025-05-06] MEDS: ASCORBIC ACID 250 MG TABLET 500 MG PO ×2 (08:02→20:36)
[2025-05-06] MEDS: BALSAM PERU/CASTOR OIL (Venelex) 60 GM TUBE TOP ×2 (08:03→20:37)
[2025-05-06] MEDS: ZINC SULFATE 220 MG CAPSULE PO (08:03)
[2025-05-06] MEDS: BUMETANIDE INJ 0.25 MG/ML VIAL 4 ML 1 MG IVP ×2 (08:03→20:37)
[2025-05-06] MEDS: ASPIRIN EC 81 MG TABEC PO (08:03)
[2025-05-06] MEDS: TAMSULOSIN HCL 0.4 MG CAPSULE PO (08:03)
[2025-05-06] MEDS: POTASSIUM CHLORIDE 20 mEq TABCR 40 MEQ PO (08:43)
--- NOTE | 2025-05-06 09:49 | ESPR_ITS ---
Documentation for date of: 05/06/25 Subjective Subjective Interval history: Patient is a 65-year-old male with a past medical history of CHF HFrEF 25 to 30% (03/15/2025), former history of heart disease, cocaine use disorder, and past medical history cigarette use, who presented with a chief complaint of lower swelling and increased shortness of breath. Patient stated he stopped taking his medication for about 2 weeks secondary to increased anxiety in regards to side effects, patient was unable to clearly define concern. Increased shortness of breath upon ambulation, requiring patient to sleep in a sitting position, and shortness of breath wakes him up from sleep. Increased shortness of breath with ambulation. Patient describes symptoms related to orthopnea and paroxysmal nocturnal dyspnea. Denied palpitations. Patient denied chest pain or syncopal event. Patient denied recent history of sick contacts. Denied pyrexia at home. Denied past history of COPD. Denied worsening cough. Patient decided to seek further medical attention from the ER as swelling increased into lower quadrant abdomen and increased scrotal edema noted prior to admission. 05/04/2025: No overnight events. Patient denied chest pain or SOB. Lower pedal edema 3+ with improvement at upper thigh. Bumex decreased to 1 mg IV BID and Diamox 500 mg oral given Total Net Balance 24 hrs (05/04/2025): -4870 05/05/2025: No overnight events. Pateint denied chest pain or dyspnea. Lower edema 3+,improvement in upper thighs. Patient ambulated out of the bed to chair. Vitals stable. Continue to diuresis. Diamox X 1. 05/06/2025: No overnight events. Pateint sitting on chair. No SOB reported and NO Chest pressure/Pressure. Patient has seen improvment of lower extremities. Patient is pending [place] authorization for SNF. Patient needs to have a close follow up with [employer], Dr. Mcclelland, within one week of discharge from hospital. Exam Vital Signs Temp Pulse Resp BP Pulse Ox O2 Del Method 97.7 F 80 16 109/67 95 Room Air 05/06/25 08:00 05/06/25 08:03 05/06/25 08:00 05/06/25 08:03 05/06/25 08:00 05/06/25 08:00 Narrative Exam General Appearance: Alert & Oriented X3, well-nourished male who is lying in bed in no acute distress HEENT: Skull symmetrical and atraumatic. Conjunctivae pink and moist. Pupils equal, round, reactive to light and accommodation (PERRL). External ear without lesion or discharge. Straight, nares patient, mucosa pink, no discharge. Cardio: Normal Rate and Rhythm with S1 and S2 heart sounds, distant heart sounds. Heart sounds difficult to appreciate, possible holosystolic murmur and bruit on carotid auscultation. Pedal Edema Left +1 and Right +2. No scrotal edema noted. Lungs: Symmetric with good expansion. Chest and back non-tender. Decreased vesicular breath sounds Abdomen: Non-tender, Non-distended, Normal Reactive Bowel Sounds Neuro: Alert, cooperative, oriented to person, place, and time. Speech clear. CN grossly intact. Upper motor strength 5/5 and Lower motor strength 5/5. Sensation intact. Objective Labs 05/06/25 04:55 05/06/25 04:55 Labs: Laboratory Results - last 24 hr 05/03/25 05/06/25 11:38 04:55 WBC 8.9 RBC 5.22 Hgb 14.8 Hct 45.9 MCV 88 MCH 28.4 MCHC 32.2 RDW Std Deviation 51.0 H Plt Count 147 Neut % (Auto) 71 Lymph % (Auto) 14 [place] % (Auto) 11 Eos % (Auto) 3 Baso % (Auto) 1 Neut # (Auto) 6.3 Lymph # (Auto) 1.3 [place] # (Auto) 0.9 H Eos # (Auto) 0.3 Baso # (Auto) 0.1 Immature Gran # (Auto) 0.03 H Absolute Nucleated RBC 0.00 Immature Gran % 0 Nucleated RBC % 0 Sodium 136 Potassium 3.4 Chloride 98 Carbon Dioxide 27.1 Anion Gap 11 BUN 23 Creatinine 1.1 Estim Creat Clear Calc 90.9 eGFR > 60 BUN/Creatinine Ratio 21 H Glucose 96 Calculated Osmolality 275 Calcium 8.9 Corrected Calcium 9.2 Magnesium 2.2 Total Bilirubin 1.4 H AST 59 H ALT 33 Alkaline Phosphatase 95 Total Protein 6.1 Albumin 3.6 Globulin 2.5 Albumin/Globulin Ratio 1.4 HCV RNA Quant (PCR) [id number] H HCV RNA (PCR) IU log10 6.40 H ABG Interpretation ABG results: 05/01/25 00:59 ABG pH 7.38 ABG pCO2 41 ABG pO2 72 L ABG HCO3 24 ABG O2 Saturation 95 ABG Base Excess -1 Quality Measures Quality Measures none Assessment & Plan Assessment Current Active Medications: Generic Name Dose Route Start Last Admin Trade Name Freq PRN Reason Stop Dose Admin Acetaminophen 650 mg 05/01/25 03:42 05/04/25 08:57 Acetaminophen 325 Mg Tablet PO 05/31/25 03:41 650 mg Q6H PRN Administration PAIN OR FEVER > 101 Ascorbic Acid 500 mg 05/02/25 14:30 05/06/25 08:02 Ascorbic Acid 250 Mg Tablet PO 06/01/25 14:29 500 mg BID CHYNA Administration Aspirin 81 mg 05/01/25 09:00 05/06/25 08:03 Aspirin Ec 81 Mg Tabec PO 05/31/25 08:59 81 mg QDAY CHYNA Administration Atorvastatin Calcium 80 mg 05/02/25 21:00 05/05/25 20:29 Atorvastatin Calcium 20 Mg Tablet PO 06/01/25 20:59 80 mg HS CHYNA Administration Balsam [place] Oil 0 gm 05/02/25 09:00 05/06/25 08:03 Balsam [place] Oil (Venelex) 60 Gm Tube TOP 06/01/25 08:59 1 applicatio BID CHYNA Administration Bumetanide 1 mg 05/04/25 21:00 05/06/25 08:03 Bumetanide Inj 0.25 Mg/Ml Vial 4 Ml IVP 06/03/25 20:59 1 mg BID CHYNA Administration Cephalexin HCl 1,000 mg 05/02/25 08:00 05/06/25 05:16 Cephalexin 250 Mg Capsule PO 05/09/25 07:59 1,000 mg TID CHYNA Administration Heparin Sodium (Porcine) 5,000 unit 05/01/25 06:00 05/06/25 05:17 Heparin Sod Inj 5000 Unit/Ml Vial SC 05/15/25 05:59 5,000 unit Q8HR CHYNA Administration Melatonin 6 mg 05/03/25 20:00 05/05/25 20:30 Melatonin 3 Mg Tablet PO 06/02/25 19:59 6 mg DAILY@2000 CHYNA Administration Multivitamins 1 tab 05/02/25 14:30 05/06/25 08:02 Multivitamins Tablet PO 06/01/25 14:29 1 tab QDAY CHYNA Administration Ondansetron HCl 4 mg 05/01/25 03:42 Ondansetron Inj 2 Mg/Ml Inj 2 Ml IV 05/31/25 03:41 Q6H PRN NAUSEA OR VOMITING Protocol Sennosides 2 tab 05/01/25 03:42 05/03/25 05:27 Senna Tablet PO 05/31/25 03:41 2 tab BID PRN Administration CONSTIPATION Protocol Tamsulosin HCl 0.4 mg 05/01/25 09:00 05/06/25 08:03 Tamsulosin Hcl 0.4 Mg Capsule PO 05/31/25 08:59 0.4 mg QDAY CHYNA Administration Zinc Sulfate 220 mg 05/02/25 14:30 05/06/25 08:03 Zinc Sulfate 220 Mg Capsule PO 05/16/25 14:29 220 mg QDAY CHYNA Administration Plan The patient is a 65-year-old male with medical history of HFrEF (20-30%), BPH , former user of cocaine (last use 2003), former smoker (30 packs/year quit 2021) who was admitted on 05/01/2025 for acute CHF exacerbation. # Acute on chronic severe systolic & Diastolic Dysfunction CHF exacerbation EF 25-30% (03/15/2025) # Mild to Moderate AV Stenosis # Multifocal atrial tachycardia # Essential hypertension # Hyperlipidemia Etiology: Etiology: Past medical history of CHF in the setting of cardiomyopathy in the setting of past medical history of cocaine use disorder and smoking history vs ischemic heart condition given deep Q waves noted on EKG w/ MAT pattern. 05/06/2025: NET___ Total Net Balance during hospital visit: -22, 300 ml (05/01/2025-05/05/2025) Recommendations upon discharge: Bumex 1.5 mg PO qday. Metoprolol XL 25 mg PO qday. Stop Carvedilol and Losartan given soft blood pressure. Follow up with Cardiology, Dr. Mcclelland, within one week of discharge in office. Dx: Echo (03/15/2025): Dilated LV. Severe systolic dysfunction. Severe global hypokinesis. Estimated EF 20-30% %. Grade 2 diastolic dysfunction. Mild RV dilatation. Mild RV systolic dysufnction. Mild to modertae AV stenosis. Low gradient due to low EF. Mean PG 12-14 mm hg but JE aroind 1.1 to 1.2 sq cm which indicates at least moderate stenosis. Mild MAC. Mild MR. Mild TR. Trace AI. Mildly dilated LA volume 40.5 mL/m?. TSH 1.20 BNP 3100. Troponin within normal limits LIpid Panel Triglycerides 67, Cholesterol 127, LDL 81, HDL 33, A1c 5.4% NYHA Class: III ASCVD: High-intensity Statins recommended Plan: -Bumex 1 mg IV BID -Discharge patient on: Bumex 1.5 mg PO oral & Metoprolol XL 25 mg PO Qday, monitor BP - last 24 hrs ___ -Aggressive Diuresis -Aspirin 81 mg PO Qday -Atorvastatin 80 mg PO HS -STOP upon discharge Carvedilol 3.125 PO BIDWM & Losartan 25 mg PO Qday -Work towards GDMT, currently holding off given blood pressure and diuresis with Bumex -Repeat BNP prior to discharge and document dry weight -K>4 and Mg >2 -Fluid Restriction 1500ml and Sodium Restriction 2 g per day -SpO >90%, support PRN #Cirrhosis, Mild Ascites #Hepatitis C hepatitis C given positive Hepatitis Panel & likely LIAO contributing to finding given BMI of 35, history of HLD, and Fatty infiltration findings on CT vs less likely secondary to alcohol use disorder as AST/ALT within normal limits. Hepatitis Panel: Positive for Hep C HCV RNA : 6.40 & [id number] AST 32 ALT 24 Total Bili 1.0/Direct 0.4-->AST 41 ALT 25 Total Bili 1.3 US Abdomen: There is 16.4 cm irregular contour fatty infiltration mild ascites Normal hepatopedal portal venous flow. Patent IVC Child Moran Score 6 points, Class A, Life Expectancy 15-20 years Plan -Hepatitis C positive, patient would benefit from ID consult/referral -Primary Team started patient on Ascorbic Acid -Patient would benefit from biopsy outpatient & follow up outpatient for Hep C #Cellulitis Bilateral erythema likely secondary to venous stasis vs cellulits less likely no pyrexia and no leukocytosis, treating empirically Plan Cephalexin 1000 PO TID (05/02/2025--) Blood cultures negative 48 hours #BPH -Resume home dose of Tamsulosin #Incidental Left Common Iliac artery, narrow MONICO (05/01/2025): Right ankle/Brachial index 1.1 and Left ankle/Brachial index 1.1 Plan -Consider outpatient exercise induced MONICO #Bilateral Parenchyal scar formation #Incidental finding Mild aneurysm Dilation abdominal Aorta -Follow up outpatient Health Maintenance: Disp: Pt is currently admitted to floors for further management of CHF , please have patient follow up with cardiology, Dr. Mcclelland, within one week of discharge FEN: Cardiac Diet, Fluid Restriction 1500 ml DVT: on subQ heparin Q8HRs Code: Full code - The patient's plan was discussed with attending Dr. Dr. Krystin Montgomery MD PGY1 Internal Medicine Attending Provider Attestation/Addendum I have personally seen and examined the patient separately on the above date of service and discussed the plan of care with the resident. I reviewed the resident Dr. Sommer Montgomery consultation progress note and agree with the resident findings and plan in the note above and have also edited the documentation to reflect my findings and plan. Ernie Mcclelland M.D. Interventional Cardiology
--- NOTE | 2025-05-06 10:42 | PC.SS ---
Follow up note: Cardio recommendations pending. Insurance authorization for [place] is pending.
--- NOTE | 2025-05-06 11:49 | PD.RESPRO ---
Documentation for date of: 05/06/25 Exam Vital Signs Temp Pulse Resp BP Pulse Ox O2 Del Method 97.7 F 80 16 109/67 95 Room Air 05/06/25 08:00 05/06/25 08:03 05/06/25 08:00 05/06/25 08:03 05/06/25 08:00 05/06/25 08:00 Objective Labs 05/06/25 04:55 05/06/25 04:55 Labs: Laboratory Results - last 24 hr 05/03/25 05/06/25 11:38 04:55 WBC 8.9 RBC 5.22 Hgb 14.8 Hct 45.9 MCV 88 MCH 28.4 MCHC 32.2 RDW Std Deviation 51.0 H Plt Count 147 Neut % (Auto) 71 Lymph % (Auto) 14 [place] % (Auto) 11 Eos % (Auto) 3 Baso % (Auto) 1 Neut # (Auto) 6.3 Lymph # (Auto) 1.3 [place] # (Auto) 0.9 H Eos # (Auto) 0.3 Baso # (Auto) 0.1 Immature Gran # (Auto) 0.03 H Absolute Nucleated RBC 0.00 Immature Gran % 0 Nucleated RBC % 0 Sodium 136 Potassium 3.4 Chloride 98 Carbon Dioxide 27.1 Anion Gap 11 BUN 23 Creatinine 1.1 Estim Creat Clear Calc 90.9 eGFR > 60 BUN/Creatinine Ratio 21 H Glucose 96 Calculated Osmolality 275 Calcium 8.9 Corrected Calcium 9.2 Magnesium 2.2 Total Bilirubin 1.4 H AST 59 H ALT 33 Alkaline Phosphatase 95 Total Protein 6.1 Albumin 3.6 Globulin 2.5 Albumin/Globulin Ratio 1.4 HCV RNA Quant (PCR) [id number] H HCV RNA (PCR) IU log10 6.40 H ABG Interpretation ABG results: 05/01/25 00:59 ABG pH 7.38 ABG pCO2 41 ABG pO2 72 L ABG HCO3 24 ABG O2 Saturation 95 ABG Base Excess -1 Quality Measures Quality Measures none Assessment & Plan Assessment Current Active Medications: Generic Name Dose Route Start Last Admin Trade Name Freq PRN Reason Stop Dose Admin Acetaminophen 650 mg 05/01/25 03:42 05/04/25 08:57 Acetaminophen 325 Mg Tablet PO 05/31/25 03:41 650 mg Q6H PRN Administration PAIN OR FEVER > 101 Ascorbic Acid 500 mg 05/02/25 14:30 05/06/25 08:02 Ascorbic Acid 250 Mg Tablet PO 06/01/25 14:29 500 mg BID CHYNA Administration Aspirin 81 mg 05/01/25 09:00 05/06/25 08:03 Aspirin Ec 81 Mg Tabec PO 05/31/25 08:59 81 mg QDAY CHYNA Administration Atorvastatin Calcium 80 mg 05/02/25 21:00 05/05/25 20:29 Atorvastatin Calcium 20 Mg Tablet PO 06/01/25 20:59 80 mg HS CHYNA Administration Balsam [place]ess[place] Oil 0 gm 05/02/25 09:00 05/06/25 08:03 Balsam [place] Oil (Venelex) 60 Gm Tube TOP 06/01/25 08:59 1 applicatio BID CHYNA Administration Bumetanide 1 mg 05/04/25 21:00 05/06/25 08:03 Bumetanide Inj 0.25 Mg/Ml Vial 4 Ml IVP 06/03/25 20:59 1 mg BID CHYNA Administration Cephalexin HCl 1,000 mg 05/02/25 08:00 05/06/25 05:16 Cephalexin 250 Mg Capsule PO 05/09/25 07:59 1,000 mg TID CHYNA Administration Heparin Sodium (Porcine) 5,000 unit 05/01/25 06:00 05/06/25 05:17 Heparin Sod Inj 5000 Unit/Ml Vial SC 05/15/25 05:59 5,000 unit Q8HR CHYNA Administration Melatonin 6 mg 05/03/25 20:00 05/05/25 20:30 Melatonin 3 Mg Tablet PO 06/02/25 19:59 6 mg DAILY@2000 CHYNA Administration Multivitamins 1 tab 05/02/25 14:30 05/06/25 08:02 Multivitamins Tablet PO 06/01/25 14:29 1 tab QDAY CHYNA Administration Ondansetron HCl 4 mg 05/01/25 03:42 Ondansetron Inj 2 Mg/Ml Inj 2 Ml IV 05/31/25 03:41 Q6H PRN NAUSEA OR VOMITING Protocol Sennosides 2 tab 05/01/25 03:42 05/03/25 05:27 Senna Tablet PO 05/31/25 03:41 2 tab BID PRN Administration CONSTIPATION Protocol Tamsulosin HCl 0.4 mg 05/01/25 09:00 05/06/25 08:03 Tamsulosin Hcl 0.4 Mg Capsule PO 05/31/25 08:59 0.4 mg QDAY CHYNA Administration Zinc Sulfate 220 mg 05/02/25 14:30 05/06/25 08:03 Zinc Sulfate 220 Mg Capsule PO 05/16/25 14:29 220 mg QDAY CHYNA Administration
--- NOTE | 2025-05-06 13:15 | PD.RESDS ---
Planned Discharge Date 05/06/25 DS: Providers Provider Date of admission: 05/01/25 03:42 Primary care physician: Physician No Primary/Family Admitting Provider: Misael Mclaughlin MD Attending Provider on Admission: La Mohan MD Consults: 05/01/25 03:42 Referral Physical Therapy Routine Comment: Physician Instructions: 05/01/25 12:08 Consult to Cardiology Routine Comment: CHF Exacerbation Consulting Provider: Ernie Mcclelland 05/02/25 00:12 Referral Nutritional Services Routine Comment: Referral Wound Care Routine Comment: 05/02/25 12:25 Referral OP Wound Healing Dept Routine Comment: Instructions: buttocks stage 2 Attending Provider on DC: La Mohan MD Discharging Provider: La Mohan MD Anticipated date of discharge: 05/06/25 DS: Diagnosis Problem List Completed Was Problem List Reviewed/Reconciled?: Yes Hospital Course Hospital Course Hospital course: Hospital course: Mr. King is a 65-year-old male with past medical history of heart failure with reduced ejection fraction EF 20-30%, combined systolic and diastolic heart failure, mild to moderate AV stenosis, benign prostate hypertrophy, cocaine use and former smoker with 30 pack years who presented to [facility] emergency department on May 01, 2025 with a chief complaint of shortness of breath and bilateral lower extremity edema. Patient had stopped taking his Lasix for the last 2 weeks, was admitted for acute decompensated heart failure, patient was started on IV diuretics, cardiology was consulted, GDMT was held, over the course of hospitalization patient was diuresed extensively, patient is -23.6 L, weight 120.304. Patient had new finding of cirrhosis, workup was significant for positive hep C antibody, on further investigation patient has a positive viral load of 2.5 million HCVRNA quant and positive HCV RNA PCR. Patient also has underlying fatty liver changes. Patient was informed of findings, patient denies any unprotected sexual intercourse or IV drug use. Otherwise patient's swelling and dyspnea improved remarkably with the progression of hospital course. Patient was also given p.o. Keflex for the duration of his hospitalization for suspected underlying cellulitis, further plan is to discharge patient to snf facility on Bumex 1.5 mg p.o. twice daily, metoprolol succinate 25 mg daily. Patient to follow-up outpatient with cardiology and optimize regimen for GDMT, patient to follow outpatient with primary care physician to start treatment for hepatitis C infection. Patient to follow-up outpatient with wound care for groin and buttock wound. Patient is stable for discharge and patient responded well to hospital treatment. Patient to follow-up outpatient for further workup regarding narrow left comon Iliac Artery and mild aneurysmal dilation abdominal aorta. 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 Mohan. Dennis Sargent PGY1 Disclaimer: This note was dictated by speech recognition. Minor errors in induction heat treater may be present due to voice recognition software. Status at Discharge Functional status at discharge: uses cane/walker Overall status at discharge: patient is progressing back to baseline Time Spent with Patient Time attestation: Total time spent providing and/or coordinating discharge services: Time spent: Greater than 30 minutes Exam Vital Signs Temp Pulse Resp BP Pulse Ox O2 Del Method 97.4 F 100 19 118/81 96 Room Air 05/06/25 12:05/06/25 12:05/06/25 12:05/06/25 12:05/06/25 12:05/06/25 12:00 Narrative Exam General Appearance: Alert & Oriented X3, well-nourished male who is lying in bed in no acute distress HEENT: Skull symmetrical and atraumatic. Conjunctivae pink and moist. Pupils equal, round, reactive to light and accommodation (PERRL). External ear without lesion or discharge. Straight, nares patient, mucosa pink, no discharge. Cardio: Normal Rate and Rhythm with S1 and S2 heart sounds, distant heart sounds. Heart sounds difficult to appreciate, possible holosystolic murmur and bruit on carotid auscultation. Pedal Edema Left +1 and Right +2. No scrotal edema noted. Lungs: Symmetric with good expansion. Chest and back non-tender. Decreased vesicular breath sounds Abdomen: Non-tender, Non-distended, Normal Reactive Bowel Sounds Neuro: Alert, cooperative, oriented to person, place, and time. Speech clear. CN grossly intact. Upper motor strength 5/5 and Lower motor strength 5/5. Sensation intact. Discharge Plan Plan Patient Disposition: Xfer Skilled Nsg Fac (SNF) Patient condition on transfer: Stable Care Plan Goals: Discharge Recommendations: -Follow up with PCP within 1 week of discharge -Follow up with your Targeting Acquisition Officer within 1 week of discharge -Return to the ED or call EMS if symptoms return and/or worsen. -Get a liver panel within 1 week of discharge with your primary care -Please discuss with your PCP regarding vascular surgery referral for Narrow left common Iliac artery -Please discuss with your PCP regarding Hepatitis C 1) Follow up at [facility] for skin breakdown to your groin and buttocks. [address] [place] [address]. Call [phone] for appointment. 2) Wound care to groin and buttocks, shower daily. Apply over the counter zinc paste to groin and buttocks at least twice a day. Goal to keep skin clean and dry. -Repostoning yourself ever 15/20 minutes while sitting and ever 2 hours while laying down to allow blood cirulation to skin. Prescriptions/Referrals Prescriptions/Med Rec: New bumetanide 0.5 mg tablet 1.5 mg PO QDAY 30 Days Qty: 90 0RF metoprolol succinate [Toprol XL] 25 mg tablet extended release 24 hr 25 mg PO QDAY Qty: 30 0RF aspirin [Ecotrin Low Strength] 81 mg Tablet,Delayed Release (Dr/Ec) 81 mg PO QDAY 30 Days Qty: 30 0RF atorvastatin 20 mg Tablet 80 mg PO HS 30 Days Qty: 120 0RF cephalexin 250 mg Capsule 1,000 mg PO TID 2 Days Qty: 24 0RF Continued tamsulosin 0.4 mg capsule 0.4 mg PO DAILY Patient Comments: take 1 capsule by mouth once daily Discontinued furosemide 40 mg tablet 40 mg PO QDAY Qty: 30 3RF carvedilol 3.125 mg Tablet 3.125 mg PO BIDWM 30 Days Qty: 60 3RF Referrals: Ernie Mcclelland MD [Physician] - No Primary/Family,Physician [Primary Care Provider] - Dennis Sargent MD [Resident] - Patient/Caregiver Discharge Instructions Discharge Activity: activity as tolerated Education Materials: Pressure Injury Dc, Changing Dressing Dc, Bowel Movements and Diaper Rash Print Language: Bulgarian Stand Alone Forms: Nidia Award Info., Patient Portal Info Letter Discharge Order Discharge Orders: Discharge (Routine); Ordered 05/06/25 Ordered By: La Mohan Quality Discharge Quality Measures VTE prophylaxis Attestestation MD Attestation I attest that I was physically present for the evaluation, physical examination, lab and imaging review of the patient with the residents. I discussed the case with the residents and agree with the findings and plans of care as documented above. La Mohan MD
[2025-05-06] MEDS: ATORVASTATIN CALCIUM 20 MG TABLET 80 MG PO (20:36)
[2025-05-06] MEDS: MELATONIN 3 MG TABLET 6 MG PO (20:36)
[2025-05-07] VITALS (11 sets, daily range): BP systolic 97–134; BP diastolic 58–86; PULSE 64–98; RESP 16–20; TEMP 36.1–36.6; O2SAT 92–98
--- NOTE | 2025-05-07 01:33 | PC.NURSE ---
patient had 4 beats of v tach, artemio back to sinus rhythm, patient is asymptomatic, no c/o chest pain, SOB, headache. Notified Dr. Travis, no new orders received.
[2025-05-07 06:02] LABS: Basophils # (Auto) 0.1 Thou/mm3 (0.0-0.2); Basophils % (Auto) 1 % (0-2.5); Eosinophils # (Auto) 0.3 Thou/mm3 (0.0-0.5); Eosinophils % (Auto) 4 % (0-10); Hematocrit 46.5 % (41.0-53.0); Hemoglobin 15.1 g/dL (13.5-16.0); Immature Granulocytes % (Auto) 1 % (0-0); Immature Granulocytes Auto 0.04 Thou/mm3 (0.00-0.00); Lymphocytes # (Auto) 1.2 Thou/mm3 (1.0-4.8); Lymphocytes % (Auto) 14 % (10-50); Mean Corpuscular HGB Conc 32.5 g/dl (31.0-37.0); Mean Corpuscular Hemoglobin 28.4 pg (25.0-35.0); Mean Corpuscular Volume 88 fL (80-100); Monocytes # (Auto) 0.9 Thou/mm3 (0.0-0.8); Monocytes % (Auto) 10 % (0-12); Neutrophils # (Auto) 6.1 Thou/mm3 (1.8-7.7); Neutrophils % (Auto) 71 % (37-80); Nucleated Red Blood Cell % 0 /100 WBC (0); Platelet Count 168 Thou/mm3 (140-440); RDW Standard Deviation 50.2 fL (35.1-43.9); Red Blood Count 5.31 Miln/mm3 (4.50-5.90); White Blood Count 8.6 Thou/mm3 (3.8-10.6)
[2025-05-07] MEDS: cephALEXin 250 MG CAPSULE 1000 MG PO ×3 (06:04→21:56)
[2025-05-07] MEDS: HEPARIN SOD INJ 5000 UNIT/ML VIAL SC ×3 (06:04→21:56)
[2025-05-07] MEDS: BUMETANIDE INJ 0.25 MG/ML VIAL 4 ML 1 MG IVP (08:23)
[2025-05-07] MEDS: ZINC SULFATE 220 MG CAPSULE PO (08:24)
[2025-05-07] MEDS: ASCORBIC ACID 250 MG TABLET 500 MG PO ×2 (08:24→20:32)
[2025-05-07] MEDS: ASPIRIN EC 81 MG TABEC PO (08:24)
[2025-05-07] MEDS: TAMSULOSIN HCL 0.4 MG CAPSULE PO (08:24)
[2025-05-07] MEDS: MULTIVITAMINS TABLET 1 TAB PO (08:24)
[2025-05-07] MEDS: BALSAM PERU/CASTOR OIL (Venelex) 60 GM TUBE TOP ×2 (08:25→20:28)
[2025-05-07 08:32] LABS: Alanine Aminotransferase 49 U/L (10-49); Albumin, Serum 3.7 gm/dL (3.4-4.8); Albumin/Globulin Ratio 1.3 (1.2-2.2); Alkaline Phosphatase 115 U/L (46-116); Anion Gap 10 (7-16); BUN/Creatinine Ratio 27 Ratio (12-20); Bilirubin,Total 1.1 mg/dL (0.3-1.2); Blood Urea Nitrogen 30 mg/dL (9-23); Calcium 8.8 mg/dL (8.3-10.6); Carbon Dioxide 29.1 mMol/L (20.0-31.0); Chloride 102 mMol/L (98-107); Creatinine (Component) 1.1 mg/dL (0.6-1.3); Estimated Creatinine Clearance 90.9 mL/min (>60); Globulin 2.8 gm/dL (2.3-3.5); Glucose 96 mg/dL (74-106); Magnesium 2.2 mg/dL (1.6-2.6); Osmolality,Calculated 287 (275-295); Sodium 141 mMol/L (136-145); Total Protein 6.5 gm/dL (5.7-8.2); eGFR > 60 See Note
--- NOTE | 2025-05-07 10:27 | PC.SS ---
SS reached out to Nelda at [facility] who stated auth was obtained but we are pending JUAN which will not happen until Wednesday 05/09 as office is closed.
--- NOTE | 2025-05-07 13:09 | PD.RESDS ---
Planned Discharge Date 05/07/25 DS: Providers Provider Date of admission: 05/01/25 03:42 Primary care physician: Physician No Primary/Family Admitting Provider: Misael Mclaughlin MD Attending Provider on Admission: La Mohan MD Consults: 05/01/25 03:42 Referral Physical Therapy Routine Comment: Physician Instructions: 05/01/25 12:08 Consult to Cardiology Routine Comment: CHF Exacerbation Consulting Provider: Ernie Mcclelland 05/02/25 00:12 Referral Nutritional Services Routine Comment: Referral Wound Care Routine Comment: 05/02/25 12:25 Referral OP Wound Healing Dept Routine Comment: Instructions: buttocks stage 2 Attending Provider on DC: Dennis Sargent MD Discharging Provider: Dennis Sargent MD Hospital Course Hospital Course Hospital course: Hospital course: Mr. King is a 65-year-old male with past medical history of heart failure with reduced ejection fraction EF 20-30%, combined systolic and diastolic heart failure, mild to moderate AV stenosis, benign prostate hypertrophy, cocaine use and former smoker with 30 pack years who presented to [facility] emergency department on May 01, 2025 with a chief complaint of shortness of breath and bilateral lower extremity edema. Patient had stopped taking his Lasix for the last 2 weeks, was admitted for acute decompensated heart failure, patient was started on IV diuretics, cardiology was consulted, GDMT was held, over the course of hospitalization patient was diuresed extensively, patient is -23.6 L, weight 120.304. Patient had new finding of cirrhosis, workup was significant for positive hep C antibody, on further investigation patient has a positive viral load of 2.5 million HCVRNA quant and positive HCV RNA PCR. Patient also has underlying fatty liver changes. Patient was informed of findings, patient denies any unprotected sexual intercourse or IV drug use. Otherwise patient's swelling and dyspnea improved remarkably with the progression of hospital course. Patient was also given p.o. Keflex for the duration of his hospitalization for suspected underlying cellulitis, further plan is [facility] on Bumex 1.5 mg p.o. twice daily, metoprolol succinate 25 mg daily. Patient to follow-up outpatient with cardiology and optimize regimen for GDMT, patient to follow outpatient with primary care physician to start treatment for hepatitis C infection. Patient to follow-up outpatient with wound care for groin and buttock wound. Patient is stable for discharge and patient responded well to hospital treatment. Patient to follow-up outpatient for further workup regarding narrow left comon Iliac Artery and mild aneurysmal dilation abdominal aorta. 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 Mohan. Dennis Sargent PGY1 Disclaimer: This note was dictated by speech recognition. Minor errors in carpenter helper may be present due to voice recognition software. Time Spent with Patient Time attestation: Total time spent providing and/or coordinating discharge services: Exam Vital Signs Temp Pulse Resp BP Pulse Ox O2 Del Method 97.3 F 89 16 134/78 H 96 Room Air 05/07/25 08:00 05/07/25 12:00 05/07/25 08:00 05/07/25 08:23 05/07/25 08:00 05/07/25 08:00 Discharge Plan Plan Patient Disposition: Xfer Skilled Nsg Fac (SNF) Patient condition on transfer: Stable Care Plan Goals: Discharge Recommendations: -Follow up with PCP within 1 week of discharge -Follow up with your Sketch Artist within 1 week of discharge -Return to the ED or call EMS if symptoms return and/or worsen. -Get a liver panel within 1 week of discharge with your primary care -Please discuss with your PCP regarding vascular surgery referral for Narrow left common Iliac artery -Please discuss with your PCP regarding Hepatitis C 1) Follow up at [facility] for skin breakdown to your groin and buttocks. [address] [place] [address]. Call [phone] for appointment. 2) Wound care to groin and buttocks, shower daily. Apply over the counter zinc paste to groin and buttocks at least twice a day. Goal to keep skin clean and dry. -Repostoning yourself ever 15/20 minutes while sitting and ever 2 hours while laying down to allow blood cirulation to skin. Prescriptions/Referrals Prescriptions/Med Rec: New bumetanide 0.5 mg tablet 1.5 mg PO QDAY 30 Days Qty: 90 0RF metoprolol succinate [Toprol XL] 25 mg tablet extended release 24 hr 25 mg PO QDAY Qty: 30 0RF aspirin [Ecotrin Low Strength] 81 mg Tablet,Delayed Release (Dr/Ec) 81 mg PO QDAY 30 Days Qty: 30 0RF atorvastatin 20 mg Tablet 80 mg PO HS 30 Days Qty: 120 0RF cephalexin 250 mg Capsule 1,000 mg PO TID 2 Days Qty: 24 0RF Continued tamsulosin 0.4 mg capsule 0.4 mg PO DAILY Patient Comments: take 1 capsule by mouth once daily Discontinued furosemide 40 mg tablet 40 mg PO QDAY Qty: 30 3RF carvedilol 3.125 mg Tablet 3.125 mg PO BIDWM 30 Days Qty: 60 3RF Referrals: Ernie Mcclelland MD [Physician] - No Primary/Family,Physician [Primary Care Provider] - Dennis Sargent MD [Resident] - Patient/Caregiver Discharge Instructions Discharge Activity: activity as tolerated Education Materials: Pressure Injury Dc, Changing Dressing Dc, Bowel Movements and Diaper Rash Print Language: German Stand Alone Forms: Nidia Award Info., Patient Portal Info Letter Discharge Order Discharge Orders: Discharge (Routine); Ordered 05/06/25 Ordered By: La Mohan
--- NOTE | 2025-05-07 15:35 | ESPR_ITS ---
Documentation for date of: 05/07/25 Subjective Subjective Interval history: Patient seen and examined at bedside. Patient is pending insurance authorization for [facility]. Will be obtained on Friday. Patient's discharge is delayed till Friday. Otherwise patient's Bumex changed to p.o., started on metoprolol tartrate 12.5 twice daily, if patient tolerates will start on metoprolol succinate 25 mg per cardiology recommendations in a.m. Patient is stable otherwise, will continue to monitor. Exam Vital Signs Temp Pulse Resp BP Pulse Ox O2 Del Method 97.5 F 79 18 109/73 96 Room Air 05/07/25 12:05/07/25 12:05/07/25 12:05/07/25 12:05/07/25 12:05/07/25 12:00 Narrative Exam General Appearance: Alert & Oriented X3, well-nourished male who is lying in bed in no acute distress HEENT: Skull symmetrical and atraumatic. Conjunctivae pink and moist. Pupils equal, round, reactive to light and accommodation (PERRL). External ear without lesion or discharge. Straight, nares patient, mucosa pink, no discharge. Cardio: Normal Rate and Rhythm with S1 and S2 heart sounds, distant heart sounds. Heart sounds difficult to appreciate, possible holosystolic murmur and bruit on carotid auscultation. Pedal Edema Left +1 and Right +1. No scrotal edema noted. Lungs: Symmetric with good expansion. Chest and back non-tender. Decreased vesicular breath sounds Abdomen: Non-tender, Non-distended, Normal Reactive Bowel Sounds Neuro: Alert, cooperative, oriented to person, place, and time. Speech clear. CN grossly intact. Upper motor strength 5/5 and Lower motor strength 5/5. Sensation intact. Objective Labs 05/07/25 04:33 05/07/25 04:33 Labs: Laboratory Results - last 24 hr 05/07/25 04:33 WBC 8.6 RBC 5.31 Hgb 15.1 Hct 46.5 MCV 88 MCH 28.4 MCHC 32.5 RDW Std Deviation 50.2 H Plt Count 168 Neut % (Auto) 71 Lymph % (Auto) 14 Nash % (Auto) 10 Eos % (Auto) 4 Baso % (Auto) 1 Neut # (Auto) 6.1 Lymph # (Auto) 1.2 Nash # (Auto) 0.9 H Eos # (Auto) 0.3 Baso # (Auto) 0.1 Immature Gran # (Auto) 0.04 H Absolute Nucleated RBC 0.00 Immature Gran % 1 H Nucleated RBC % 0 Sodium 141 Potassium 4.0 D Chloride 102 Carbon Dioxide 29.1 Anion Gap 10 BUN 30 H Creatinine 1.1 Estim Creat Clear Calc 90.9 eGFR > 60 BUN/Creatinine Ratio 27 H Glucose 96 Calculated Osmolality 287 Calcium 8.8 Corrected Calcium 9.0 Magnesium 2.2 Total Bilirubin 1.1 ALT 49 Alkaline Phosphatase 115 D Total Protein 6.5 Albumin 3.7 Globulin 2.8 Albumin/Globulin Ratio 1.3 ABG Interpretation ABG results: 05/01/25 00:59 ABG pH 7.38 ABG pCO2 41 ABG pO2 72 L ABG HCO3 24 ABG O2 Saturation 95 ABG Base Excess -1 Quality Measures Quality Measures VTE prophylaxis Assessment & Plan Assessment Current Active Medications: Generic Name Dose Route Start Last Admin Trade Name Freq PRN Reason Stop Dose Admin Acetaminophen 650 mg 05/01/25 03:42 05/04/25 08:57 Acetaminophen 325 Mg Tablet PO 05/31/25 03:41 650 mg Q6H PRN Administration PAIN OR FEVER > 101 Ascorbic Acid 500 mg 05/02/25 14:30 05/07/25 08:24 Ascorbic Acid 250 Mg Tablet PO 06/01/25 14:29 500 mg BID CHYNA Administration Aspirin 81 mg 05/01/25 09:00 05/07/25 08:24 Aspirin Ec 81 Mg Tabec PO 05/31/25 08:59 81 mg QDAY CHYNA Administration Atorvastatin Calcium 80 mg 05/02/25 21:00 05/06/25 20:36 Atorvastatin Calcium 20 Mg Tablet PO 06/01/25 20:59 80 mg HS CHYNA Administration Balsam [place] Oil 0 gm 05/02/25 09:00 05/07/25 08:25 Balsam [place] Oil (Venelex) 60 Gm Tube TOP 06/01/25 08:59 1 applicatio BID CHYNA Administration Bumetanide 1.5 mg 05/07/25 21:00 Bumetanide 0.5 Mg Tablet PO 06/06/25 20:59 BID CHYNA Cephalexin HCl 1,000 mg 05/02/25 08:00 05/07/25 13:28 Cephalexin 250 Mg Capsule PO 05/09/25 07:59 1,000 mg TID CHYNA Administration Heparin Sodium (Porcine) 5,000 unit 05/01/25 06:00 05/07/25 13:29 Heparin Sod Inj 5000 Unit/Ml Vial SC 05/15/25 05:59 5,000 unit Q8HR CHYNA Administration Melatonin 6 mg 05/03/25 20:00 05/06/25 20:36 Melatonin 3 Mg Tablet PO 06/02/25 19:59 6 mg DAILY@2000 CHYNA Administration Metoprolol Tartrate 12.5 mg 05/07/25 21:00 Metoprolol Tartrate 25 Mg Tablet PO 06/06/25 20:59 BID CHYNA Multivitamins 1 tab 05/02/25 14:30 05/07/25 08:24 Multivitamins Tablet PO 06/01/25 14:29 1 tab QDAY CHYNA Administration Ondansetron HCl 4 mg 05/01/25 03:42 Ondansetron Inj 2 Mg/Ml Inj 2 Ml IV 05/31/25 03:41 Q6H PRN NAUSEA OR VOMITING Protocol Sennosides 2 tab 05/01/25 03:42 05/03/25 05:27 Senna Tablet PO 05/31/25 03:41 2 tab BID PRN Administration CONSTIPATION Protocol Tamsulosin HCl 0.4 mg 05/01/25 09:00 05/07/25 08:24 Tamsulosin Hcl 0.4 Mg Capsule PO 05/31/25 08:59 0.4 mg QDAY CHYNA Administration Zinc Sulfate 220 mg 05/02/25 14:30 05/07/25 08:24 Zinc Sulfate 220 Mg Capsule PO 05/16/25 14:29 220 mg QDAY CHYNA Administration Plan Mr. King is a 65-year-old male with medical history of HFrEF, BPH , former user of cocaine (last use 2003), former smoker (30 packs/year quit 2021) who presented to the ED with a chief complaint of shortness of breath and bilateral lower extremity swelling. The patient stopped taking his Lasix for the last 2 weeks, Due to concern for adverse events. The patient was discharged home from hospital recently for CHF exacerbation but has not been established with a horticulture professor outpatient as he lives alone and does not have transport available. The patient has been doing bilateral lower extremity edema extending all the way up to his groin, and had difficulty urinating due to scrotal swelling. Denied fever, chest pain, diarrhea, melena, but endorsed cough with sputum and orthopnea. #Acute decompensated heart failure #Heart failure with reduced ejection fraction, EF 20 to 30% #Mild to moderate AV stenosis #Combined systolic and diastolic heart failure Non compliance with medications, Given IV lasix 80mg x1, Beal catheter in place, adequate urine output, patient had about 2.5 L urine output in the first 24 hours since admission. DVT ruled out. 05/02: Patient is -5.4 L in the last 24 hours, had 8.1 L urine output. 05/03: Patient is -5.6 L, total urine output 7.7 L in the last 24 hours 05/04: Patient is -4.8 L 05/05: Patient is -5.3 L 05/06: Patient is -2.5L 05/07: Patient is -1.4 L Echocardiogram March 2025 shows Dialated cardiomyopathy. Dilated LV. Severe systolic dysfunction. Severe global hypokinesis. Estimated EF 20-30% %. Grade 2 diastolic dysfunction. Mild RV dilatation. Mild RV systolic dysufnction. Mild to modertae AV stenosis. Low gradient due to low EF. Mean PG 12-14 mm hg but JE aroind 1.1 to 1.2 sq cm which indicates at least moderate stenosis. Mild MAC. Mild MR. Mild TR. Trace AI. Mildly dilated LA volume 40.5 mL/m?. Plan: - Switched to Bumex 1.5mg p.o. - Stop Coreg and losartan per cardiology recommendations, patient started on metoprolol tartrate 12.5 mg twice daily, will switch to metoprolol succinate 25 mg in a.m. if patient tolerates well - Introduce further GDMT as tolerated, per cardiology recommendations - Aspirin 81 mg qday - Atorvastatin 80mg qhs - Consulted cardiology, following, appreciate recommendations #Acute hepatitis C infection #Decompensated Cirrhosis #MASLD, cardiac cirrhosis #Positive hep C antibody #Hyperbilirubinemia Pt reported no prior history of cirrhosis, hepatitis panel shows positive hep C antibody, possible past infection, other multifactorial etiology, possible MASLD and underlying cardiac cirrhosis Abdomen US Shows: Cholelithiasis, Abnormal thickening of the gallbladder wall 0.6 cm, consider HIDA scan or MRCP follow-up, Common bile duct 0.7 cm no stones, Cirrhosis, fatty infiltration, Mild ascites HIV negative 05/04/2025 RUQ US showed mild gallbladder wall thickened 0.5 cm Patient does have a fatty liver Less concerning for acute obstructive cause, patient does not have any pain, examination unremarkable HCV viral load of 2.5 million HCV RNA quant and positive HCV RNA PCR -Monitor liver panel -Follow CMP daily -Establish outpatient treatment #Bigeminy, PVCs On telemonitor in and out 05/04/2025 EKG ordered showed similar findings as previous -K and Mag replaced to maintain >4.0 and >2.0 respectively #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 Bilateral pedal pulses palpated, no evidence of limb ischemia MONICO (05/01/2025): Right ankle/Brachial index 1.1 and Left ankle/Brachial index 1.1 Plan: - Continue outpatient follow-up with vascular surgery #Cellulitis Received 2 doses of IV ceftriaxone 1g qday Urinalysis shows contamination, squamous epithelial cells more than 20 - Continue patient on Keflex p.o. (05/02- - Monitor for signs of sepsis #BPH - Continue home dose tamsulosin #Hyperlipidemia - Continue atorvastatin 40 mg twice Disposition: Telemetry DVT prophylaxis: Heparin subcut GI prophylaxis: none Diet:cardiac, fluid restriction 1000 cc Lines: PIV CODE STATUS: Full Code Patient plan of care was discussed with the attending physician, Dr. Mohan. Dennis Sargent PGY1 Attending Provider Attestation/Addendum I attest that I was physically present for the evaluation, physical examination, lab and imaging review of the patient with the residents. I discussed the case with the residents and agree with the findings and plans of care as documented above. At bedside today, patient states she is feeling well and denies any new complaints. Has been saturating well on room air, rest of the vitals are within normal limits as well. Had a negative balance of 1420 today. Liver function slightly improved, bilirubin 1.4. Continues to be on diuretics. Bilateral pedal edema has improved significantly. Patient stable for discharge, awaiting placement to SNF. La Mohan MD
[2025-05-07] MEDS: MELATONIN 3 MG TABLET 6 MG PO (20:28)
[2025-05-07] MEDS: ATORVASTATIN CALCIUM 20 MG TABLET 80 MG PO (20:32)
[2025-05-07] MEDS: BUMETANIDE 0.5 MG TABLET 1.5 MG PO (20:33)
[2025-05-08] VITALS (12 sets, daily range): BP systolic 105–124; BP diastolic 56–89; PULSE 66–96; RESP 16–21; TEMP 36.1–36.9; O2SAT 93–97
[2025-05-08] MEDS: cephALEXin 250 MG CAPSULE 1000 MG PO ×3 (05:27→20:59)
[2025-05-08] MEDS: HEPARIN SOD INJ 5000 UNIT/ML VIAL SC ×3 (05:27→21:07)
[2025-05-08 06:00] LABS: Basophils # (Auto) 0.1 Thou/mm3 (0.0-0.2); Basophils % (Auto) 1 % (0-2.5); Eosinophils # (Auto) 0.3 Thou/mm3 (0.0-0.5); Eosinophils % (Auto) 3 % (0-10); Hematocrit 47.9 % (41.0-53.0); Hemoglobin 15.4 g/dL (13.5-16.0); Immature Granulocytes % (Auto) 1 % (0-0); Immature Granulocytes Auto 0.05 Thou/mm3 (0.00-0.00); Lymphocytes % (Auto) 10 % (10-50); Mean Corpuscular HGB Conc 32.2 g/dl (31.0-37.0); Mean Corpuscular Hemoglobin 27.9 pg (25.0-35.0); Mean Corpuscular Volume 87 fL (80-100); Monocytes % (Auto) 10 % (0-12); Neutrophils # (Auto) 7.1 Thou/mm3 (1.8-7.7); Neutrophils % (Auto) 75 % (37-80); Nucleated Red Blood Cell % 0 /100 WBC (0); Platelet Count 203 Thou/mm3 (140-440); RDW Standard Deviation 49.3 fL (35.1-43.9); Red Blood Count 5.51 Miln/mm3 (4.50-5.90); White Blood Count 9.5 Thou/mm3 (3.8-10.6)
[2025-05-08 07:40] LABS: Alanine Aminotransferase 69 U/L (10-49); Albumin, Serum 3.8 gm/dL (3.4-4.8); Albumin/Globulin Ratio 1.3 (1.2-2.2); Alkaline Phosphatase 139 U/L (46-116); Anion Gap 13 (7-16); BUN/Creatinine Ratio 24 Ratio (12-20); Blood Urea Nitrogen 29 mg/dL (9-23); Calcium 9.1 mg/dL (8.3-10.6); Calcium (Corrected) 9.3 mg/dL (8.5-10.1); Carbon Dioxide 27.5 mMol/L (20.0-31.0); Chloride 101 mMol/L (98-107); Creatinine (Component) 1.2 mg/dL (0.6-1.3); Estimated Creatinine Clearance 83.3 mL/min (>60); Glucose 109 mg/dL (74-106); Magnesium 2.1 mg/dL (1.6-2.6); Osmolality,Calculated 288 (275-295); Potassium 3.7 mMol/L (3.4-5.1); Sodium 141 mMol/L (136-145); Total Protein 6.8 gm/dL (5.7-8.2); eGFR > 60 See Note
[2025-05-08] MEDS: ASCORBIC ACID 250 MG TABLET 500 MG PO ×2 (08:13→20:59)
[2025-05-08] MEDS: METOPROLOL TARTRATE 25 MG TABLET 12.5 MG PO ×2 (08:13→21:00)
[2025-05-08] MEDS: TAMSULOSIN HCL 0.4 MG CAPSULE PO (08:14)
[2025-05-08] MEDS: MULTIVITAMINS TABLET 1 TAB PO (08:14)
[2025-05-08] MEDS: BUMETANIDE 0.5 MG TABLET 1.5 MG PO (08:14)
[2025-05-08] MEDS: BALSAM PERU/CASTOR OIL (Venelex) 60 GM TUBE TOP ×2 (08:14→21:00)
[2025-05-08] MEDS: ZINC SULFATE 220 MG CAPSULE PO (08:14)
[2025-05-08] MEDS: ASPIRIN EC 81 MG TABEC PO (08:14)
--- NOTE | 2025-05-08 15:34 | ESPR_ITS ---
Documentation for date of: 05/08/25 Subjective Subjective Interval history: No overnight events, patient now euvolemic, lower extremity edema resolved. Pending insurance authorization for placement at SNF which will likely happen on Friday. Exam Vital Signs Temp Pulse Resp BP Pulse Ox O2 Del Method 97.8 F 87 20 121/69 97 Room Air 05/08/25 12:00 05/08/25 12:00 05/08/25 12:00 05/08/25 12:00 05/08/25 12:00 05/08/25 12:00 Narrative Exam GENERAL: Awake, alert and oriented. No acute distress. HEENT: Normocephalic, atraumatic and nontender.? Pupils are equal and reactive to light and accommodation.? Oral mucosa moist. NECK: Supple without adenopathy. Traquea midline. Nontender, carotid pulse 2+ bilaterally without bruits, no JVD.? CHEST: Heart rate and rythm normal, no murmurs, gallops auscultated. S1 & 2 normal insensity. Nontender on palpation, no deformity and no crepitus. LUNGS: Lung sounds are clear.? No wheezing, rales or ronchi.? No intercostal subcostal retraction. Room air ABDOMEN: Soft,symmetric , nontender, no guarding or rebound tenderness. No abnormal masses palpated.? No pulsatile masses or bruits.? Bowel sounds are normoactive in all 4 quadrants. EXTREMITIES: Nontender.? trace pitting edema.? No cyanosis.? Venous stasis dermatitis SKIN: No rashes noted. NEURO:? Cranial nerves intact.? There is no focalization.? GCS is 15. Objective Labs 05/08/25 04:20 05/08/25 04:20 Labs: Laboratory Results - last 24 hr 05/08/25 04:20 WBC 9.5 RBC 5.51 Hgb 15.4 Hct 47.9 MCV 87 MCH 27.9 MCHC 32.2 RDW Std Deviation 49.3 H Plt Count 203 D Neut % (Auto) 75 Lymph % (Auto) 10 [place] % (Auto) 10 Eos % (Auto) 3 Baso % (Auto) 1 Neut # (Auto) 7.1 Lymph # (Auto) 1.0 [place] # (Auto) 1.0 H Eos # (Auto) 0.3 Baso # (Auto) 0.1 Immature Gran # (Auto) 0.05 H Absolute Nucleated RBC 0.00 Immature Gran % 1 H Nucleated RBC % 0 Sodium 141 Potassium 3.7 Chloride 101 Carbon Dioxide 27.5 Anion Gap 13 BUN 29 H Creatinine 1.2 Estim Creat Clear Calc 83.3 eGFR > 60 BUN/Creatinine Ratio 24 H Glucose 109 H Calculated Osmolality 288 Calcium 9.1 Corrected Calcium 9.3 Magnesium 2.1 Total Bilirubin 1.0 ALT 69 H Alkaline Phosphatase 139 H D Total Protein 6.8 Albumin 3.8 Globulin 3.0 Albumin/Globulin Ratio 1.3 ABG Interpretation ABG results: 05/01/25 00:59 ABG pH 7.38 ABG pCO2 41 ABG pO2 72 L ABG HCO3 24 ABG O2 Saturation 95 ABG Base Excess -1 Quality Measures Quality Measures VTE prophylaxis Assessment & Plan Assessment Current Active Medications: Generic Name Dose Route Start Last Admin Trade Name Freq PRN Reason Stop Dose Admin Acetaminophen 650 mg 05/01/25 03:42 05/04/25 08:57 Acetaminophen 325 Mg Tablet PO 05/31/25 03:41 650 mg Q6H PRN Administration PAIN OR FEVER > 101 Ascorbic Acid 500 mg 05/02/25 14:30 05/08/25 08:13 Ascorbic Acid 250 Mg Tablet PO 06/01/25 14:29 500 mg BID CHYNA Administration Aspirin 81 mg 05/01/25 09:00 05/08/25 08:14 Aspirin Ec 81 Mg Tabec PO 05/31/25 08:59 81 mg QDAY CHYNA Administration Atorvastatin Calcium 80 mg 05/02/25 21:00 05/07/25 20:32 Atorvastatin Calcium 20 Mg Tablet PO 06/01/25 20:59 80 mg HS CHYNA Administration Balsam Yessi/Leander Oil 0 gm 05/02/25 09:00 05/08/25 08:14 Balsam Yessi/Leander Oil (Venelex) 60 Gm Tube TOP 06/01/25 08:59 1 applicatio BID CHYNA Administration Bumetanide 1.5 mg 05/07/25 21:00 05/08/25 08:14 Bumetanide 0.5 Mg Tablet PO 06/06/25 20:59 1.5 mg BID CHYNA Administration Cephalexin HCl 1,000 mg 05/02/25 08:00 05/08/25 13:19 Cephalexin 250 Mg Capsule PO 05/09/25 07:59 1,000 mg TID CHYNA Administration Heparin Sodium (Porcine) 5,000 unit 05/01/25 06:00 05/08/25 13:19 Heparin Sod Inj 5000 Unit/Ml Vial SC 05/15/25 05:59 5,000 unit Q8HR CHYNA Administration Melatonin 6 mg 05/03/25 20:00 05/07/25 20:28 Melatonin 3 Mg Tablet PO 06/02/25 19:59 6 mg DAILY@2000 CHYNA Administration Metoprolol Tartrate 12.5 mg 05/07/25 21:00 05/08/25 08:13 Metoprolol Tartrate 25 Mg Tablet PO 06/06/25 20:59 12.5 mg BID CHYNA Administration Multivitamins 1 tab 05/02/25 14:30 05/08/25 08:14 Multivitamins Tablet PO 06/01/25 14:29 1 tab QDAY CHYNA Administration Ondansetron HCl 4 mg 05/01/25 03:42 Ondansetron Inj 2 Mg/Ml Inj 2 Ml IV 05/31/25 03:41 Q6H PRN NAUSEA OR VOMITING Protocol Sennosides 2 tab 05/01/25 03:42 05/03/25 05:27 Senna Tablet PO 05/31/25 03:41 2 tab BID PRN Administration CONSTIPATION Protocol Tamsulosin HCl 0.4 mg 05/01/25 09:00 05/08/25 08:14 Tamsulosin Hcl 0.4 Mg Capsule PO 05/31/25 08:59 0.4 mg QDAY CHYNA Administration Zinc Sulfate 220 mg 05/02/25 14:30 05/08/25 08:14 Zinc Sulfate 220 Mg Capsule PO 05/16/25 14:29 220 mg QDAY CHYNA Administration Plan Mr. King is a 65-year-old male with medical history of HFrEF, BPH , former user of cocaine (last use 2003), former smoker (30 packs/year quit 2021) who presented to the ED with a chief complaint of shortness of breath and bilateral lower extremity swelling. The patient stopped taking his Lasix for the last 2 weeks, Due to concern for adverse events. The patient was discharged home from hospital recently for CHF exacerbation but has not been established with a grocery department manager outpatient as he lives alone and does not have transport available. The patient has been doing bilateral lower extremity edema extending all the way up to his groin, and had difficulty urinating due to scrotal swelling. Denied fever, chest pain, diarrhea, melena, but endorsed cough with sputum and orthopnea. #Acute decompensated heart failure #Heart failure with reduced ejection fraction, EF 20 to 30% #Mild to moderate AV stenosis #Combined systolic and diastolic heart failure Non compliance with medications, Given IV lasix 80mg x1, Beal catheter in place, adequate urine output, patient had about 2.5 L urine output in the first 24 hours since admission. DVT ruled out. 05/02: Patient is -5.4 L in the last 24 hours, had 8.1 L urine output. 05/03: Patient is -5.6 L, total urine output 7.7 L in the last 24 hours 05/04: Patient is -4.8 L 05/05: Patient is -5.3 L 05/06: Patient is -2.5L 05/07: Patient is -1.4 L Echocardiogram March 2025 shows Dialated cardiomyopathy. Dilated LV. Severe systolic dysfunction. Severe global hypokinesis. Estimated EF 20-30% %. Grade 2 diastolic dysfunction. Mild RV dilatation. Mild RV systolic dysufnction. Mild to modertae AV stenosis. Low gradient due to low EF. Mean PG 12-14 mm hg but JE aroind 1.1 to 1.2 sq cm which indicates at least moderate stenosis. Mild MAC. Mild MR. Mild TR. Trace AI. Mildly dilated LA volume 40.5 mL/m?. Plan: - Switched to Bumex 1.5mg p.o. - Stop Coreg and losartan per cardiology recommendations, patient started on metoprolol tartrate 12.5 mg twice daily, will switch to metoprolol succinate 25 mg in a.m. if patient tolerates well - Introduce further GDMT as tolerated, per cardiology recommendations - Aspirin 81 mg qday - Atorvastatin 80mg qhs - Consulted cardiology, following, appreciate recommendations #Acute hepatitis C infection #Decompensated Cirrhosis #MASLD, cardiac cirrhosis #Positive hep C antibody #Hyperbilirubinemia Pt reported no prior history of cirrhosis, hepatitis panel shows positive hep C antibody, possible past infection, other multifactorial etiology, possible MASLD and underlying cardiac cirrhosis Abdomen US Shows: Cholelithiasis, Abnormal thickening of the gallbladder wall 0.6 cm, consider HIDA scan or MRCP follow-up, Common bile duct 0.7 cm no stones, Cirrhosis, fatty infiltration, Mild ascites HIV negative 05/04/2025 RUQ US showed mild gallbladder wall thickened 0.5 cm Patient does have a fatty liver Less concerning for acute obstructive cause, patient does not have any pain, examination unremarkable HCV viral load of 2.5 million HCV RNA quant and positive HCV RNA PCR -Monitor liver panel -Follow CMP daily -Establish outpatient treatment #Bigeminy, PVCs On telemonitor in and out 05/04/2025 EKG ordered showed similar findings as previous -K and Mag replaced to maintain >4.0 and >2.0 respectively #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 Bilateral pedal pulses palpated, no evidence of limb ischemia MONICO (05/01/2025): Right ankle/Brachial index 1.1 and Left ankle/Brachial index 1.1 Plan: - Continue outpatient follow-up with vascular surgery #Cellulitis Received 2 doses of IV ceftriaxone 1g qday Urinalysis shows contamination, squamous epithelial cells more than 20 - Continue patient on Keflex p.o. (05/02- - Monitor for signs of sepsis #BPH - Continue home dose tamsulosin #Hyperlipidemia - Continue atorvastatin 40 mg twice Disposition: Telemetry DVT prophylaxis: Heparin subcut GI prophylaxis: none Diet:cardiac, fluid restriction 1000 cc Lines: PIV CODE STATUS: Full Code Patient plan of care was discussed with the attending physician, Dr. Mohan. Tahira Ortega MD PGY3 Attending Provider Attestation/Addendum I attest that I was physically present for the evaluation, physical examination, lab and imaging review of the patient with the residents. I discussed the case with the residents and agree with the findings and plans of care as documented above. At bedside today, patient states she is feeling well and denies any new complaints. Has been saturating well on room air, rest of the vitals are within normal limits as well. Had a negative balance of 2210 today. Liver function continues to be improving, bilirubin 1.0. Continues to be on diuretics. Bilateral pedal edema has improved significantly. Patient stable for discharge, awaiting placement to SNF. La Mohan MD
[2025-05-08] MEDS: POTASSIUM CHLORIDE 20 mEq TABCR 40 MEQ PO (16:56)
[2025-05-08] MEDS: MELATONIN 3 MG TABLET 6 MG PO (20:59)
[2025-05-08] MEDS: ATORVASTATIN CALCIUM 20 MG TABLET 80 MG PO (20:59)
[2025-05-09] VITALS (9 sets, daily range): BP systolic 99–120; BP diastolic 49–75; PULSE 60–110; RESP 15–21; TEMP 35.8–36.2; O2SAT 93–97; BMI 14.0
--- NOTE | 2025-05-09 00:08 | PC.NURSE ---
called Dr. Gonsalez regarding patient's heart rhythm, patient goes into bigeminy, back to sinus with PVCs, patient is asymptomatic, no complaints of chest pain, headache or dizziness. No new orders received.
[2025-05-09 05:47] LABS: Basophils # (Auto) 0.1 Thou/mm3 (0.0-0.2); Basophils % (Auto) 1 % (0-2.5); Eosinophils # (Auto) 0.3 Thou/mm3 (0.0-0.5); Eosinophils % (Auto) 3 % (0-10); Hematocrit 45.8 % (41.0-53.0); Immature Granulocytes % (Auto) 0 % (0-0); Immature Granulocytes Auto 0.04 Thou/mm3 (0.00-0.00); Lymphocytes # (Auto) 1.3 Thou/mm3 (1.0-4.8); Lymphocytes % (Auto) 15 % (10-50); Mean Corpuscular HGB Conc 32.8 g/dl (31.0-37.0); Mean Corpuscular Hemoglobin 28.6 pg (25.0-35.0); Mean Corpuscular Volume 87 fL (80-100); Monocytes # (Auto) 0.9 Thou/mm3 (0.0-0.8); Monocytes % (Auto) 10 % (0-12); Neutrophils # (Auto) 6.3 Thou/mm3 (1.8-7.7); Neutrophils % (Auto) 71 % (37-80); Nucleated Red Blood Cell % 0 /100 WBC (0); Platelet Count 170 Thou/mm3 (140-440); RDW Standard Deviation 49.5 fL (35.1-43.9); Red Blood Count 5.25 Miln/mm3 (4.50-5.90); White Blood Count 8.9 Thou/mm3 (3.8-10.6)
[2025-05-09] MEDS: SENNA TABLET 2 TAB PO (05:53)
[2025-05-09] MEDS: cephALEXin 250 MG CAPSULE 1000 MG PO (05:53)
[2025-05-09] MEDS: HEPARIN SOD INJ 5000 UNIT/ML VIAL SC ×3 (05:54→21:11)
[2025-05-09 06:05] LABS: Alanine Aminotransferase 76 U/L (10-49); Albumin, Serum 3.6 gm/dL (3.4-4.8); Albumin/Globulin Ratio 1.2 (1.2-2.2); Alkaline Phosphatase 145 U/L (46-116); Anion Gap 7 (7-16); BUN/Creatinine Ratio 31 Ratio (12-20); Bilirubin,Total 0.9 mg/dL (0.3-1.2); Blood Urea Nitrogen 31 mg/dL (9-23); Calcium 8.9 mg/dL (8.3-10.6); Calcium (Corrected) 9.2 mg/dL (8.5-10.1); Carbon Dioxide 30.6 mMol/L (20.0-31.0); Chloride 103 mMol/L (98-107); Estimated Creatinine Clearance 99.7 mL/min (>60); Glucose 103 mg/dL (74-106); Osmolality,Calculated 287 (275-295); Sodium 141 mMol/L (136-145); Total Protein 6.6 gm/dL (5.7-8.2); eGFR > 60 See Note
[2025-05-09] MEDS: MULTIVITAMINS TABLET 1 TAB PO (08:06)
[2025-05-09] MEDS: Magnesium Sulfate 2 GM Ivpb 2 GM/50 ML BAG IV (08:06)
[2025-05-09] MEDS: ZINC SULFATE 220 MG CAPSULE PO (08:06)
[2025-05-09] MEDS: TAMSULOSIN HCL 0.4 MG CAPSULE PO (08:06)
[2025-05-09] MEDS: ASPIRIN EC 81 MG TABEC PO (08:07)
[2025-05-09] MEDS: ASCORBIC ACID 250 MG TABLET 500 MG PO ×2 (08:07→21:11)
[2025-05-09] MEDS: POTASSIUM CHLORIDE 20 mEq TABCR PO (08:07)
[2025-05-09] MEDS: METOPROLOL SUCCINATE XL 25 MG TABCR PO (08:10)
[2025-05-09] MEDS: BUMETANIDE 0.5 MG TABLET 1.5 MG PO (08:11)
[2025-05-09] MEDS: BALSAM PERU/CASTOR OIL (Venelex) 60 GM TUBE TOP ×2 (08:11→21:11)
--- NOTE | 2025-05-09 09:56 | PC.SS ---
Addendum entered by Genna Pozo 05/09/25 15:21: SS has sent updated inquiry including PT notes to [facility] for [facility]. Original Note: Follow up note: SS spoke to Lien at [facility] who explained she has insurance authorization but is waiting for letter of agreement (JUAN) and should possibly receive it today. SS has met with pt who is still requesting to d/c to SNF. PT is working with pt.
--- NOTE | 2025-05-09 10:26 | PC.NURSE ---
pt had a run of 7 PVS's and back into sinus rhythm. pt is asymptomatic, no complaints of chest pain, SOB, dizziness or headache. MD notified, no new orders.
--- NOTE | 2025-05-09 12:47 | ESDS_ITS ---
Planned Discharge Date 05/09/25 DS: Providers Provider Date of admission: 05/01/25 03:42 Primary care physician: Physician No Primary/Family Admitting Provider: Misael Mclaughlin MD Attending Provider on Admission: La Mohan MD Consults: 05/01/25 03:42 Referral Physical Therapy Routine Comment: Physician Instructions: 05/01/25 12:08 Consult to Cardiology Routine Comment: CHF Exacerbation Consulting Provider: Ernie Mcclelland 05/02/25 00:12 Referral Nutritional Services Routine Comment: Referral Wound Care Routine Comment: 05/02/25 12:25 Referral OP Wound Healing Dept Routine Comment: Instructions: buttocks stage 2 Attending Provider on DC: La Mohan MD Discharging Provider: La Mohan MD Anticipated date of discharge: 05/09/25 DS: Diagnosis Problem List Completed Was Problem List Reviewed/Reconciled?: Yes Hospital Course Hospital Course Hospital course: Hospital course: Mr. King is a 65-year-old male with past medical history of heart failure with reduced ejection fraction EF 20-30%, combined systolic and diastolic heart failure, mild to moderate AV stenosis, benign prostate hypertrophy, cocaine use and former smoker with 30 pack years who presented to [facility] emergency department on May 01, 2025 with a chief complaint of shortness of breath and bilateral lower extremity edema. Patient had stopped taking his Lasix for the last 2 weeks, was admitted for acute decompensated heart failure, patient was started on IV diuretics, cardiology was consulted, GDMT was held, over the course of hospitalization patient was diuresed extensively, patient is -23.6 L, weight 120.304. Patient had new finding of cirrhosis, workup was significant for positive hep C antibody, on further investigation patient has a positive viral load of 2.5 million HCVRNA quant and positive HCV RNA PCR. Patient also has underlying fatty liver changes. Patient was informed of findings, patient denies any unprotected sexual intercourse or IV drug use. Otherwise patient's swelling and dyspnea improved remarkably with the progression of hospital course. Patient was also given p.o. Keflex for the duration of his hospitalization for suspected underlying cellulitis, further plan is to discharge patient to fdc facility on Bumex 1.5 mg p.o. twice daily, metoprolol succinate 25 mg daily. Patient to follow-up outpatient with cardiology and optimize regimen for GDMT, patient to follow outpatient with primary care physician to start treatment for hepatitis C infection. Patient to follow-up outpatient with wound care for groin and buttock wound. Patient is stable for discharge and patient responded well to hospital treatment. Patient to follow-up outpatient for further workup regarding narrow left comon Iliac Artery and mild aneurysmal dilation abdominal aorta. 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 Mohan. Dennis Sargent PGY1 Status at Discharge Functional status at discharge: uses cane/walker Overall status at discharge: patient is progressing back to baseline Time Spent with Patient Time attestation: Total time spent providing and/or coordinating discharge services: Time spent: Greater than 30 minutes Exam Vital Signs Temp Pulse Resp BP Pulse Ox O2 Del Method 97.2 F 85 15 113/49 L 97 Room Air 05/09/25 12:00 05/09/25 12:05/09/25 12:05/09/25 12:05/09/25 12:05/09/25 12:00 Narrative Exam GENERAL: Awake, alert and oriented. No acute distress. HEENT: Normocephalic, atraumatic and nontender.? Pupils are equal and reactive to light and accommodation.? Oral mucosa moist. NECK: Supple without adenopathy. Traquea midline. Nontender, carotid pulse 2+ bilaterally without bruits, no JVD.? CHEST: Heart rate and rythm normal, no murmurs, gallops auscultated. S1 & 2 normal insensity. Nontender on palpation, no deformity and no crepitus. LUNGS: Lung sounds are clear.? No wheezing, rales or ronchi.? No intercostal subcostal retraction. Room air ABDOMEN: Soft,symmetric , nontender, no guarding or rebound tenderness. No abnormal masses palpated.? No pulsatile masses or bruits.? Bowel sounds are normoactive in all 4 quadrants. EXTREMITIES: Nontender.? trace pitting edema.? No cyanosis.? Venous stasis dermatitis SKIN: No rashes noted. NEURO:? Cranial nerves intact.? There is no focalization.? GCS is 15. Discharge Plan Plan Patient Disposition: Xfer Skilled Nsg Fac (SNF) Patient condition on transfer: Stable Care Plan Goals: Discharge Recommendations: -Follow up with PCP within 1 week of discharge -Follow up with your [facility] within 1 week of discharge -Return to the ED or call EMS if symptoms return and/or worsen. -Get a liver panel within 1 week of discharge with your primary care -Please discuss with your PCP regarding vascular surgery referral for Narrow left common Iliac artery -Please discuss with your PCP regarding Hepatitis C 1) Follow up at [facility] for skin breakdown to your groin and buttocks. [address] [place] [address]. Call [phone] for appointment. 2) Wound care to groin and buttocks, shower daily. Apply over the counter zinc paste to groin and buttocks at least twice a day. Goal to keep skin clean and dry. -Repostoning yourself ever 15/20 minutes while sitting and ever 2 hours while laying down to allow blood cirulation to skin. Prescriptions/Referrals Prescriptions/Med Rec: New bumetanide 0.5 mg tablet 1.5 mg PO QDAY 30 Days Qty: 90 0RF metoprolol succinate [Toprol XL] 25 mg tablet extended release 24 hr 25 mg PO QDAY Qty: 30 0RF aspirin [Ecotrin Low Strength] 81 mg Tablet,Delayed Release (Dr/Ec) 81 mg PO QDAY 30 Days Qty: 30 0RF atorvastatin 20 mg Tablet 80 mg PO HS 30 Days Qty: 120 0RF multivitamin with folic acid [Tab-A-Amara] 400 mcg Tablet 1 tab PO QDAY Qty: 0 0RF zinc sulfate 50 mg zinc (220 mg) Capsule 220 mg PO QDAY Qty: 0 0RF Entresto 24-26 mg Tablet 1 tab PO BID 30 Days Qty: 0 0RF Continued tamsulosin 0.4 mg capsule 0.4 mg PO DAILY Patient Comments: take 1 capsule by mouth once daily Discontinued furosemide 40 mg tablet 40 mg PO QDAY Qty: 30 3RF carvedilol 3.125 mg Tablet 3.125 mg PO BIDWM 30 Days Qty: 60 3RF Referrals: Ernie Mcclelland MD [Physician] - No Primary/Family,Physician [Primary Care Provider] - Dennis Sargent MD [Resident] - Patient/Caregiver Discharge Instructions Discharge Activity: activity as tolerated Education Materials: Pressure Injury Dc, Changing Dressing Dc, Bowel Movements and Diaper Rash Print Language: Northern Irish Stand Alone Forms: Nidia Award Info., Patient Portal Info Letter Discharge Order Discharge Orders: Discharge (Routine); Ordered 05/10/25 Ordered By: Dennis Sargent Quality Discharge Quality Measures VTE prophylaxis MD Attestestation MD Attestation I attest that I was physically present for the evaluation, physical examination, lab and imaging review of the patient with the residents. I discussed the case with the residents and agree with the findings and plans of care as documented above. La Mohan MD
--- NOTE | 2025-05-09 12:50 | PD.RESPRO ---
Documentation for date of: 05/09/25 Subjective Subjective Interval history: Patient is a 65-year-old male with a past medical history of CHF HFrEF 25 to 30% (03/15/2025), former history of heart disease, cocaine use disorder, and past medical history cigarette use, who presented with a chief complaint of lower swelling and increased shortness of breath. Patient stated he stopped taking his medication for about 2 weeks secondary to increased anxiety in regards to side effects, patient was unable to clearly define concern. Increased shortness of breath upon ambulation, requiring patient to sleep in a sitting position, and shortness of breath wakes him up from sleep. Increased shortness of breath with ambulation. Patient describes symptoms related to orthopnea and paroxysmal nocturnal dyspnea. Denied palpitations. Patient denied chest pain or syncopal event. Patient denied recent history of sick contacts. Denied pyrexia at home. Denied past history of COPD. Denied worsening cough. Patient decided to seek further medical attention from the ER as swelling increased into lower quadrant abdomen and increased scrotal edema noted prior to admission. 05/05/2025: No overnight events. Pateint denied chest pain or dyspnea. Lower edema 3+,improvement in upper thighs. Patient ambulated out of the bed to chair. Vitals stable. Continue to diuresis. Diamox X 1. 05/06/2025: No overnight events. Pateint sitting on chair. No SOB reported and NO Chest pressure/Pressure. Patient has seen improvment of lower extremities. Patient is pending [facility] authorization for SNF. 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 Mcclelland, within one week of discharge from hospital. 05/09/2025: No overnight events. Patient denied chest pain or dyspnea. Improved peripheral edema, noted to have none. Patient is pending SNF. Bumex 1.5 mg PO qday and Metroprolol xl 25 mg PO qday. Came in with weight of around 120 Kg and now at 102 kg which is mostly close to his dry weight. NET fluid balance on this admission: Total net negative 28 liters -28, 250 ml. Corresponds to 18 to 20 kg weight that he lost. Pending SNF placement. Dc on Bumex 1.5 mg PO qday and Metroprolol xl 25 mg PO qday. Will need GDMT 2with entresto and eventually spiirnolactone based on renal function and BP Exam Vital Signs Temp Pulse Resp BP Pulse Ox O2 Del Method 97.2 F 85 15 113/49 L 97 Room Air 05/09/25 12:00 05/09/25 12:00 05/09/25 12:00 05/09/25 12:00 05/09/25 12:00 05/09/25 12:00 Narrative Exam General Appearance: Alert & Oriented X3, well-nourished male who is lying in bed in no acute distress HEENT: Skull symmetrical and atraumatic. Conjunctivae pink and moist. Pupils equal, round, reactive to light and accommodation (PERRL). External ear without lesion or discharge. Straight, nares patient, mucosa pink, no discharge. Cardio: Normal Rate and Rhythm with S1 and S2 heart sounds, distant heart sounds. Heart sounds difficult to appreciate, possible holosystolic murmur and bruit on carotid auscultation. Peripheral edema resolved. No scrotal edema noted. Lungs: Symmetric with good expansion. Chest and back non-tender. Decreased vesicular breath sounds Abdomen: Non-tender, Non-distended, Normal Reactive Bowel Sounds Neuro: Alert, cooperative, oriented to person, place, and time. Speech clear. CN grossly intact. Upper motor strength 5/5 and Lower motor strength 5/5. Sensation intact. Objective Labs 05/09/25 04:34 05/09/25 04:34 Labs: Laboratory Results - last 24 hr 05/09/25 04:34 WBC 8.9 RBC 5.25 Hgb 15.0 Hct 45.8 MCV 87 MCH 28.6 MCHC 32.8 RDW Std Deviation 49.5 H Plt Count 170 D Neut % (Auto) 71 Lymph % (Auto) 15 [place] % (Auto) 10 Eos % (Auto) 3 Baso % (Auto) 1 Neut # (Auto) 6.3 Lymph # (Auto) 1.3 [place] # (Auto) 0.9 H Eos # (Auto) 0.3 Baso # (Auto) 0.1 Immature Gran # (Auto) 0.04 H Absolute Nucleated RBC 0.00 Immature Gran % 0 Nucleated RBC % 0 Sodium 141 Potassium 4.0 Chloride 103 Carbon Dioxide 30.6 Anion Gap 7 BUN 31 H Creatinine 1.0 Estim Creat Clear Calc 99.7 eGFR > 60 BUN/Creatinine Ratio 31 H Glucose 103 Calculated Osmolality 287 Calcium 8.9 Corrected Calcium 9.2 Magnesium 2.0 Total Bilirubin 0.9 ALT 76 H Alkaline Phosphatase 145 H Total Protein 6.6 Albumin 3.6 Globulin 3.0 Albumin/Globulin Ratio 1.2 ABG Interpretation ABG results: 05/01/25 00:59 ABG pH 7.38 ABG pCO2 41 ABG pO2 72 L ABG HCO3 24 ABG O2 Saturation 95 ABG Base Excess -1 Quality Measures Quality Measures VTE prophylaxis Assessment & Plan Assessment Current Active Medications: Generic Name Dose Route Start Last Admin Trade Name Freq PRN Reason Stop Dose Admin Acetaminophen 650 mg 05/01/25 03:42 05/04/25 08:57 Acetaminophen 325 Mg Tablet PO 05/31/25 03:41 650 mg Q6H PRN Administration PAIN OR FEVER > 101 Ascorbic Acid 500 mg 05/02/25 14:30 05/09/25 08:07 Ascorbic Acid 250 Mg Tablet PO 06/01/25 14:29 500 mg BID CHYNA Administration Aspirin 81 mg 05/01/25 09:00 05/09/25 08:07 Aspirin Ec 81 Mg Tabec PO 05/31/25 08:59 81 mg QDAY CHYNA Administration Atorvastatin Calcium 80 mg 05/02/25 21:00 05/08/25 20:59 Atorvastatin Calcium 20 Mg Tablet PO 06/01/25 20:59 80 mg HS CHYNA Administration Balsam [place] Oil 0 gm 05/02/25 09:00 05/09/25 08:11 Balsam [place] Oil (Venelex) 60 Gm Tube TOP 06/01/25 08:59 1 applicatio BID CHYNA Administration Bumetanide 1.5 mg 05/09/25 09:00 05/09/25 08:11 Bumetanide 0.5 Mg Tablet PO 06/08/25 08:59 1.5 mg DAILY CHYNA Administration Heparin Sodium (Porcine) 5,000 unit 05/01/25 06:00 05/09/25 05:54 Heparin Sod Inj 5000 Unit/Ml Vial SC 05/15/25 05:59 5,000 unit Q8HR CHYNA Administration Melatonin 6 mg 05/03/25 20:00 05/08/25 20:59 Melatonin 3 Mg Tablet PO 06/02/25 19:59 6 mg DAILY@2000 CHYNA Administration Metoprolol Succinate 25 mg 05/09/25 09:00 05/09/25 08:10 Metoprolol Succinate Xl 25 Mg Tabcr PO 06/08/25 08:59 25 mg QDAY CHYNA Administration Multivitamins 1 tab 05/02/25 14:30 05/09/25 08:06 Multivitamins Tablet PO 06/01/25 14:29 1 tab QDAY CHYNA Administration Ondansetron HCl 4 mg 05/01/25 03:42 Ondansetron Inj 2 Mg/Ml Inj 2 Ml IV 05/31/25 03:41 Q6H PRN NAUSEA OR VOMITING Protocol Sennosides 2 tab 05/01/25 03:42 05/09/25 05:53 Senna Tablet PO 05/31/25 03:41 2 tab BID PRN Administration CONSTIPATION Protocol Tamsulosin HCl 0.4 mg 05/01/25 09:00 05/09/25 08:06 Tamsulosin Hcl 0.4 Mg Capsule PO 05/31/25 08:59 0.4 mg QDAY CHYNA Administration Zinc Sulfate 220 mg 05/02/25 14:30 05/09/25 08:06 Zinc Sulfate 220 Mg Capsule PO 05/16/25 14:29 220 mg QDAY CHYNA Administration Plan The patient is a 65-year-old male with medical history of HFrEF (20-30%), BPH , former user of cocaine (last use 2003), former smoker (30 packs/year quit 2021) who was admitted on 05/01/2025 for acute CHF exacerbation. # Acute on chronic severe systolic & Diastolic Dysfunction CHF exacerbation EF 25-30% (03/15/2025) # Mild to Moderate AV Stenosis # Multifocal atrial tachycardia # Essential hypertension # Hyperlipidemia Etiology: Etiology: Past medical history of CHF in the setting of cardiomyopathy in the setting of past medical history of cocaine use disorder and smoking history vs ischemic heart condition given deep Q waves noted on EKG w/ MAT pattern. 05/09/2025: NET-580 Total Net Balance during hospital visit: -28, 500 ml (05/01/2025-05/05/2025) Recommendations upon discharge: Bumex 1.5 mg PO qday. Metoprolol XL 25 mg PO qday. Stop Carvedilol and Losartan given soft blood pressure. Follow up with Cardiology, Dr. Mcclelland, within one week of discharge in office. Dx: Echo (03/15/2025): Dilated LV. Severe systolic dysfunction. Severe global hypokinesis. Estimated EF 20-30% %. Grade 2 diastolic dysfunction. Mild RV dilatation. Mild RV systolic dysufnction. Mild to modertae AV stenosis. Low gradient due to low EF. Mean PG 12-14 mm hg but JE aroind 1.1 to 1.2 sq cm which indicates at least moderate stenosis. Mild MAC. Mild MR. Mild TR. Trace AI. Mildly dilated LA volume 40.5 mL/m?. TSH 1.20 BNP 3100. Troponin within normal limits LIpid Panel Triglycerides 67, Cholesterol 127, LDL 81, HDL 33, A1c 5.4% NYHA Class: III ASCVD: High-intensity Statins recommended Plan: -Bumex 1 mg IV BID-->transition to Bumex 1.5 po qday -Discharge patient on: Bumex 1.5 mg PO qday & Metoprolol XL 25 mg PO Qday, monitor BP - last 24 hrs -580 -Aggressive Diuresis -Aspirin 81 mg PO Qday -Atorvastatin 80 mg PO HS -STOP upon discharge Carvedilol 3.125 PO BIDWM & Losartan 25 mg PO Qday -Work towards GDMT, currently holding off given blood pressure and diuresis with Bumex -Repeat BNP prior to discharge and document dry weight -K>4 and Mg >2 -Fluid Restriction 1500ml and Sodium Restriction 2 g per day -SpO >90%, support PRN Came in with weight of around 120 Kg and now at 102 kg which is mostly close to his dry weight. NET fluid balance on this admission: Total net negative 28 liters -28, 250 ml. Corresponds to 18 to 20 kg weight that he lost. Pending SNF placement. Dc on Bumex 1.5 mg PO qday and Metroprolol xl 25 mg PO qday. Will need GDMT 2with entresto and eventually spiirnolactone based on renal function and BP #Cirrhosis, Mild Ascites #Hepatitis C hepatitis C given positive Hepatitis Panel & likely LIAO contributing to finding given BMI of 35, history of HLD, and Fatty infiltration findings on CT vs less likely secondary to alcohol use disorder as AST/ALT within normal limits. Hepatitis Panel: Positive for Hep C HCV RNA : 6.40 & [id number] AST 32 ALT 24 Total Bili 1.0/Direct 0.4-->AST 41 ALT 25 Total Bili 1.3 US Abdomen: There is 16.4 cm irregular contour fatty infiltration mild ascites Normal hepatopedal portal venous flow. Patent IVC Child Moran Score 6 points, Class A, Life Expectancy 15-20 years Plan -Hepatitis C positive, patient would benefit from ID consult/referral -Primary Team started patient on Ascorbic Acid -Patient would benefit from biopsy outpatient & follow up outpatient for Hep C #Cellulitis Bilateral erythema likely secondary to venous stasis vs cellulits less likely no pyrexia and no leukocytosis, treating empirically Plan Cephalexin 1000 PO TID (05/02/2025-05/09/2025) Blood cultures negative 48 hours #Incidental Left Common Iliac artery, narrow MONICO (05/01/2025): Right ankle/Brachial index 1.1 and Left ankle/Brachial index 1.1 Plan -Consider outpatient exercise induced MONICO #Bilateral Parenchyal scar formation #BPH -Resume home dose of Tamsulosin #Incidental finding Mild aneurysm Dilation abdominal Aorta -Follow up outpatient Health Maintenance: Disp: Pt is currently admitted to floors for further management of CHF , please have patient follow up with cardiology, Dr. Mcclelland, within one week of discharge FEN: Cardiac Diet, Fluid Restriction 1500 ml DVT: on subQ heparin Q8HRs Code: Full code - The patient's plan was discussed with attending Dr. Dr. Krystin Montgomery MD PGY1 Internal Medicine Attending Provider Attestation/Addendum I have personally seen and examined the patient separately on the above date of service and discussed the plan of care with the resident. I reviewed the resident Dr. Sommer Montgomery consultation progress note and agree with the resident findings and plan in the note above and have also edited the documentation to reflect my findings and plan. Ernie Mcclelland M.D. Interventional Cardiology
--- NOTE | 2025-05-09 16:08 | PC.NURSE ---
notified MD of pts heart rhythm going into bigeminy and back to sinus rhythm. pt is asymtomatic, no complaints of chest pain, SOB, dizziness or headache. no new orders received.
[2025-05-09] MEDS: ATORVASTATIN CALCIUM 20 MG TABLET 80 MG PO (21:09)
[2025-05-09] MEDS: MELATONIN 3 MG TABLET 6 MG PO (21:10)
[2025-05-10] VITALS (9 sets, daily range): BP systolic 93–118; BP diastolic 41–78; PULSE 72–99; RESP 12–23; TEMP 36.1–36.3; O2SAT 93–98
[2025-05-10] MEDS: HEPARIN SOD INJ 5000 UNIT/ML VIAL SC ×3 (05:18→21:09)
[2025-05-10 05:25] LABS: Basophils # (Auto) 0.1 Thou/mm3 (0.0-0.2); Basophils % (Auto) 1 % (0-2.5); Eosinophils # (Auto) 0.3 Thou/mm3 (0.0-0.5); Eosinophils % (Auto) 3 % (0-10); Hematocrit 45.2 % (41.0-53.0); Hemoglobin 14.7 g/dL (13.5-16.0); Immature Granulocytes % (Auto) 1 % (0-0); Immature Granulocytes Auto 0.05 Thou/mm3 (0.00-0.00); Lymphocytes # (Auto) 1.3 Thou/mm3 (1.0-4.8); Lymphocytes % (Auto) 14 % (10-50); Mean Corpuscular HGB Conc 32.5 g/dl (31.0-37.0); Mean Corpuscular Hemoglobin 28.8 pg (25.0-35.0); Mean Corpuscular Volume 89 fL (80-100); Monocytes # (Auto) 0.9 Thou/mm3 (0.0-0.8); Monocytes % (Auto) 9 % (0-12); Neutrophils # (Auto) 6.8 Thou/mm3 (1.8-7.7); Neutrophils % (Auto) 73 % (37-80); Nucleated Red Blood Cell % 0 /100 WBC (0); Platelet Count 194 Thou/mm3 (140-440); RDW Standard Deviation 50.9 fL (35.1-43.9); Red Blood Count 5.11 Miln/mm3 (4.50-5.90); White Blood Count 9.3 Thou/mm3 (3.8-10.6)
[2025-05-10 05:51] LABS: Alanine Aminotransferase 78 U/L (10-49); Albumin, Serum 3.7 gm/dL (3.4-4.8); Albumin/Globulin Ratio 1.3 (1.2-2.2); Alkaline Phosphatase 143 U/L (46-116); Anion Gap 11 (7-16); BUN/Creatinine Ratio 30 Ratio (12-20); Bilirubin,Total 0.8 mg/dL (0.3-1.2); Blood Urea Nitrogen 30 mg/dL (9-23); Calcium 8.9 mg/dL (8.3-10.6); Calcium (Corrected) 9.1 mg/dL (8.5-10.1); Chloride 104 mMol/L (98-107); Estimated Creatinine Clearance 92.3 mL/min (>60); Globulin 2.8 gm/dL (2.3-3.5); Glucose 104 mg/dL (74-106); Magnesium 2.1 mg/dL (1.6-2.6); Osmolality,Calculated 291 (275-295); Potassium 4.2 mMol/L (3.4-5.1); Sodium 143 mMol/L (136-145); Total Protein 6.5 gm/dL (5.7-8.2); eGFR > 60 See Note
--- NOTE | 2025-05-10 07:35 | PD.RESPRO ---
Documentation for date of: 05/10/25 Subjective Subjective Interval history: Patient is a 65-year-old male with a past medical history of CHF HFrEF 25 to 30% (03/15/2025), former history of heart disease, cocaine use disorder, and past medical history cigarette use, who presented with a chief complaint of lower swelling and increased shortness of breath. Patient stated he stopped taking his medication for about 2 weeks secondary to increased anxiety in regards to side effects, patient was unable to clearly define concern. Increased shortness of breath upon ambulation, requiring patient to sleep in a sitting position, and shortness of breath wakes him up from sleep. Increased shortness of breath with ambulation. Patient describes symptoms related to orthopnea and paroxysmal nocturnal dyspnea. Denied palpitations. Patient denied chest pain or syncopal event. Patient denied recent history of sick contacts. Denied pyrexia at home. Denied past history of COPD. Denied worsening cough. Patient decided to seek further medical attention from the ER as swelling increased into lower quadrant abdomen and increased scrotal edema noted prior to admission. 05/05/2025: No overnight events. Pateint denied chest pain or dyspnea. Lower edema 3+,improvement in upper thighs. Patient ambulated out of the bed to chair. Vitals stable. Continue to diuresis. Diamox X 1. 05/06/2025: No overnight events. Pateint sitting on chair. No SOB reported and NO Chest pressure/Pressure. Patient has seen improvment of lower extremities. Patient is pending [place] authorization for SNF. Patient needs to have a close follow up with [employer] Sp[employer]er, Dr. Mcclelland, within one week of discharge from hospital. 05/09/2025: No overnight events. Patient denied chest pain or dyspnea. Improved peripheral edema, noted to have none. Patient is pending SNF. Bumex 1.5 mg PO qday and Metroprolol xl 25 mg PO qday. 05/10/2025: No overnight events for patient. Patient denied chest pain or shortness of breath. Resolved lower peripheral edema. -START Entresto half (1/2) tablet bid for GDMT and monitor renal function. Paitent pending SNF. Follow up on repeat BNP Exam Vital Signs Temp Pulse Resp BP Pulse Ox O2 Del Method 97.1 F 77 18 118/78 98 Room Air 05/10/25 07:28 05/10/25 07:28 05/10/25 07:28 05/10/25 07:28 05/10/25 07:28 05/10/25 07:28 Narrative Exam General Appearance: Alert & Oriented X3, well-nourished male who is lying in bed in no acute distress HEENT: Skull symmetrical and atraumatic. Conjunctivae pink and moist. Pupils equal, round, reactive to light and accommodation (PERRL). External ear without lesion or discharge. Straight, nares patient, mucosa pink, no discharge. Cardio: Normal Rate and Rhythm with S1 and S2 heart sounds, distant heart sounds. Heart sounds difficult to appreciate, possible holosystolic murmur and bruit on carotid auscultation. Peripheral edema resolved. No scrotal edema noted. Lungs: Symmetric with good expansion. Chest and back non-tender. Decreased vesicular breath sounds Abdomen: Non-tender, Non-distended, Normal Reactive Bowel Sounds Neuro: Alert, cooperative, oriented to person, place, and time. Speech clear. CN grossly intact. Upper motor strength 5/5 and Lower motor strength 5/5. Sensation intact. Objective Labs 05/10/25 04:34 05/11/25 05:39 Labs: Laboratory Results - last 24 hr 05/10/25 04:34 WBC 9.3 RBC 5.11 Hgb 14.7 Hct 45.2 MCV 89 MCH 28.8 MCHC 32.5 RDW Std Deviation 50.9 H Plt Count 194 Neut % (Auto) 73 Lymph % (Auto) 14 [place] % (Auto) 9 Eos % (Auto) 3 Baso % (Auto) 1 Neut # (Auto) 6.8 Lymph # (Auto) 1.3 [place] # (Auto) 0.9 H Eos # (Auto) 0.3 Baso # (Auto) 0.1 Immature Gran # (Auto) 0.05 H Absolute Nucleated RBC 0.00 Immature Gran % 1 H Nucleated RBC % 0 Sodium 143 Potassium 4.2 Chloride 104 Carbon Dioxide 28.0 Anion Gap 11 BUN 30 H Creatinine 1.0 Estim Creat Clear Calc 92.3 eGFR > 60 BUN/Creatinine Ratio 30 H Glucose 104 Calculated Osmolality 291 Calcium 8.9 Corrected Calcium 9.1 Magnesium 2.1 Total Bilirubin 0.8 ALT 78 H Alkaline Phosphatase 143 H Total Protein 6.5 Albumin 3.7 Globulin 2.8 Albumin/Globulin Ratio 1.3 ABG Interpretation ABG results: 05/01/25 00:59 ABG pH 7.38 ABG pCO2 41 ABG pO2 72 L ABG HCO3 24 ABG O2 Saturation 95 ABG Base Excess -1 Quality Measures Quality Measures VTE prophylaxis Assessment & Plan Assessment Current Active Medications: Generic Name Dose Route Start Last Admin Trade Name Ruddyq PRN Reason Stop Dose Admin Acetaminophen 650 mg 05/01/25 03:42 05/04/25 08:57 Acetaminophen 325 Mg Tablet PO 05/31/25 03:41 650 mg Q6H PRN Administration PAIN OR FEVER > 101 Ascorbic Acid 500 mg 05/02/25 14:30 05/09/25 21:11 Ascorbic Acid 250 Mg Tablet PO 06/01/25 14:29 500 mg BID CHYNA Administration Aspirin 81 mg 05/01/25 09:00 05/09/25 08:07 Aspirin Ec 81 Mg Tabec PO 05/31/25 08:59 81 mg QDAY CHYNA Administration Atorvastatin Calcium 80 mg 05/02/25 21:00 05/09/25 21:09 Atorvastatin Calcium 20 Mg Tablet PO 06/01/25 20:59 80 mg HS CHYNA Administration Balsam [place] Oil 0 gm 05/02/25 09:00 05/09/25 21:11 Balsam [place] Oil (Venelex) 60 Gm Tube TOP 06/01/25 08:59 1 applicatio BID CHYNA Administration Bumetanide 1.5 mg 05/09/25 09:00 05/09/25 08:11 Bumetanide 0.5 Mg Tablet PO 06/08/25 08:59 1.5 mg DAILY CHYNA Administration Heparin Sodium (Porcine) 5,000 unit 05/01/25 06:00 05/10/25 05:18 Heparin Sod Inj 5000 Unit/Ml Vial SC 05/15/25 05:59 5,000 unit Q8HR CHYNA Administration Melatonin 6 mg 05/03/25 20:00 05/09/25 21:10 Melatonin 3 Mg Tablet PO 06/02/25 19:59 6 mg DAILY@2000 CHYNA Administration Metoprolol Succinate 25 mg 05/09/25 09:00 05/09/25 08:10 Metoprolol Succinate Xl 25 Mg Tabcr PO 06/08/25 08:59 25 mg QDAY CHYNA Administration Multivitamins 1 tab 05/02/25 14:30 05/09/25 08:06 Multivitamins Tablet PO 06/01/25 14:29 1 tab QDAY CHYNA Administration Ondansetron HCl 4 mg 05/01/25 03:42 Ondansetron Inj 2 Mg/Ml Inj 2 Ml IV 05/31/25 03:41 Q6H PRN NAUSEA OR VOMITING Protocol Sennosides 2 tab 05/01/25 03:42 05/09/25 05:53 Senna Tablet PO 05/31/25 03:41 2 tab BID PRN Administration CONSTIPATION Protocol Tamsulosin HCl 0.4 mg 05/01/25 09:00 05/09/25 08:06 Tamsulosin Hcl 0.4 Mg Capsule PO 05/31/25 08:59 0.4 mg QDAY CHYNA Administration Zinc Sulfate 220 mg 05/02/25 14:30 05/09/25 08:06 Zinc Sulfate 220 Mg Capsule PO 05/16/25 14:29 220 mg QDAY CHYNA Administration Plan The patient is a 65-year-old male with medical history of HFrEF (20-30%), BPH , former user of cocaine (last use 2003), former smoker (30 packs/year quit 2021) who was admitted on 05/01/2025 for acute CHF exacerbation. # Acute on chronic severe systolic & Diastolic Dysfunction CHF exacerbation EF 25-30% (03/15/2025) # Mild to Moderate AV Stenosis # Multifocal atrial tachycardia # Essential hypertension # Hyperlipidemia Etiology: Etiology: Past medical history of CHF in the setting of cardiomyopathy in the setting of past medical history of cocaine use disorder and smoking history vs ischemic heart condition given deep Q waves noted on EKG w/ MAT pattern. 05/10/2025: NET +250 Total Net Balance during hospital visit: -28, 250 ml (05/01/2025-05/10/2025) Dry weight: 102 kg Repeat BNP:1392 (baseline when not in CHF exacerbation) Dx: Echo (03/15/2025): Dilated LV. Severe systolic dysfunction. Severe global hypokinesis. Estimated EF 20-30% %. Grade 2 diastolic dysfunction. Mild RV dilatation. Mild RV systolic dysufnction. Mild to modertae AV stenosis. Low gradient due to low EF. Mean PG 12-14 mm hg but JE aroind 1.1 to 1.2 sq cm which indicates at least moderate stenosis. Mild MAC. Mild MR. Mild TR. Trace AI. Mildly dilated LA volume 40.5 mL/m?. TSH 1.20 BNP 3100. Troponin within normal limits LIpid Panel Triglycerides 67, Cholesterol 127, LDL 81, HDL 33, A1c 5.4% NYHA Class: III ASCVD: High-intensity Statins recommended Plan: -Bumex 1 mg IV BID-->transition to Bumex 1.5 po qday -Discharge patient on: Bumex 1.5 mg PO qday & Metoprolol XL 25 mg PO Qday, monitor BP -START Entresto half (1/2) tablet bid and monitor renal function. - last 24 hrs +250 -Aggressive Diuresis -Aspirin 81 mg PO Qday -Atorvastatin 80 mg PO HS -STOP upon discharge Carvedilol 3.125 PO BIDWM & Losartan 25 mg PO Qday -Work towards GDMT, given EF outpatient Spirnolactone & Entresto, if BP allows -Repeat BNP prior to discharge and document dry weight -K>4 and Mg >2 -Fluid Restriction 1500ml and Sodium Restriction 2 g per day -SpO >90%, support PRN Came in with weight of around 120 Kg and now at 102 kg which is mostly close to his dry weight. NET fluid balance on this admission: Total net negative 28 liters -28, 250 ml. Corresponds to 18 to 20 kg weight that he lost. Pending SNF placement. Dc on Bumex 1.5 mg PO qday and Metroprolol xl 25 mg PO qday. Will need GDMT 2with entresto and eventually spirnolactone based on renal function and BP #Cirrhosis, Mild Ascites #Hepatitis C hepatitis C given positive Hepatitis Panel & likely LIAO contributing to finding given BMI of 35, history of HLD, and Fatty infiltration findings on CT vs less likely secondary to alcohol use disorder as AST/ALT within normal limits. Hepatitis Panel: Positive for Hep C HCV RNA : 6.40 & [id number] AST 32 ALT 24 Total Bili 1.0/Direct 0.4-->AST 41 ALT 25 Total Bili 1.3 US Abdomen: There is 16.4 cm irregular contour fatty infiltration mild ascites Normal hepatopedal portal venous flow. Patent IVC Child Moran Score 6 points, Class A, Life Expectancy 15-20 years Plan -Hepatitis C positive, patient would benefit from ID consult/referral -Primary Team started patient on Ascorbic Acid -Patient would benefit from biopsy outpatient & follow up outpatient for Hep C #Cellulitis Bilateral erythema likely secondary to venous stasis vs cellulits less likely no pyrexia and no leukocytosis, treating empirically Plan Cephalexin 1000 PO TID (05/02/2025-05/09/2025) Blood cultures negative 48 hours #Incidental Left Common Iliac artery, narrow MONICO (05/01/2025): Right ankle/Brachial index 1.1 and Left ankle/Brachial index 1.1 Plan -Consider outpatient exercise induced [place] #Bilateral Parenchyal scar formation #BPH -Resume home dose of Tamsulosin #Incidental finding Mild aneurysm Dilation abdominal Aorta -Follow up outpatient Health Maintenance: Disp: Pt is currently admitted to floors for further management of CHF , please have patient follow up with cardiology, Dr. Mcclelland, within one week of discharge FEN: Cardiac Diet, Fluid Restriction 1500 ml DVT: on subQ heparin Q8HRs Code: Full code - The patient's plan was discussed with attending Dr. Dr. Krystin Montgomery MD PGY1 Internal Medicine Attending Provider Attestation/Addendum I have personally seen and examined the patient separately on the above date of service and discussed the plan of care with the resident. I reviewed the resident Dr. Sommer Montgomery consultation progress note and agree with the resident findings and plan in the note above and have also edited the documentation to reflect my findings and plan. Ernie Mcclelland M.D. Interventional Cardiology
[2025-05-10 08:03] LABS: B-Type Natriuretic Peptide 1392 pg/mL (0-100)
[2025-05-10] MEDS: ASPIRIN EC 81 MG TABEC PO (09:58)
[2025-05-10] MEDS: BUMETANIDE 0.5 MG TABLET 1.5 MG PO (09:58)
[2025-05-10] MEDS: METOPROLOL SUCCINATE XL 25 MG TABCR PO (09:58)
[2025-05-10] MEDS: ASCORBIC ACID 250 MG TABLET 500 MG PO ×2 (09:58→21:07)
[2025-05-10] MEDS: BALSAM PERU/CASTOR OIL (Venelex) 60 GM TUBE TOP ×2 (09:59→21:06)
[2025-05-10] MEDS: TAMSULOSIN HCL 0.4 MG CAPSULE PO (09:59)
[2025-05-10] MEDS: MULTIVITAMINS TABLET 1 TAB PO (09:59)
[2025-05-10] MEDS: ZINC SULFATE 220 MG CAPSULE PO (09:59)
--- NOTE | 2025-05-10 11:54 | PC.SS ---
Addendum entered by Genna Pozo 05/10/25 14:27: SS spoke to Lissette from [facility] who explained estimated grimaldo for 1 room is unusually around $2,300.00 which includes 3 meals, transportation, and maintenance keeping. Pt states he receives $1,300.00 a month and is not able to afford living at [facility] Pt is still requesting to go to SNF. Pt is aware if his health insurance declines SNF then he will return home with possibly HH. Pt is aware to follow up with [facility]. Addendum entered by Genna Pozo 05/10/25 13:55: SS has left voicemail for [place] at [employer]. SS has communicated with Lien from [employer] who states she emailed their supervisor blood donor recruiters regarding ALEXANDER and has sent patient's updated information. Original Note: SS attempted to contact patient's health insurance sales representative at [phone] but was only able to leave voicemail SS attempted to contact [place] from [employer] at [phone] but was only able to leave voicemail. SS has emailed Bradley from [employer] for assistance for insurance ALEXANDER. SS has sent [employer] updated d/c summary and inquiry using [facility] for Letter of Agreement (ALEXANDER). SS spoken to Lien from [employer] who states she has emailed patient's health insurance and Alexander is still pending.
[2025-05-10] MEDS: SACUBITRIL 24 MG/VALSARTAN 26 MG TABLET 1 TAB PO (12:50)
--- NOTE | 2025-05-10 14:48 | ESPR_ITS ---
Documentation for date of: 05/10/25 Subjective Subjective Interval history: Patient seen and examined at bedside, started on Entresto low-dose per cardiology recommendations Patient is pending JUAN for transfer to retirement facility, otherwise stable. Exam Vital Signs Temp Pulse Resp BP Pulse Ox O2 Del Method 97.1 F 84 23 H 105/67 98 Room Air 05/10/25 12:00 05/10/25 12:00 05/10/25 12:00 05/10/25 12:00 05/10/25 12:00 05/10/25 12:00 Narrative Exam GENERAL: Awake, alert and oriented. No acute distress. HEENT: Normocephalic, atraumatic and nontender.? Pupils are equal and reactive to light and accommodation.? Oral mucosa moist. NECK: Supple without adenopathy. Traquea midline. Nontender, carotid pulse 2+ bilaterally without bruits, no JVD.? CHEST: Heart rate and rythm normal, no murmurs, gallops auscultated. S1 & 2 normal insensity. Nontender on palpation, no deformity and no crepitus. LUNGS: Lung sounds are clear.? No wheezing, rales or ronchi.? No intercostal subcostal retraction. Room air ABDOMEN: Soft,symmetric , nontender, no guarding or rebound tenderness. No abnormal masses palpated.? No pulsatile masses or bruits.? Bowel sounds are normoactive in all 4 quadrants. EXTREMITIES: Nontender.? trace pitting edema.? No cyanosis.? Venous stasis dermatitis SKIN: No rashes noted. NEURO:? Cranial nerves intact.? There is no focalization.? GCS is 15. Objective Labs 05/10/25 04:34 05/10/25 04:34 Labs: Laboratory Results - last 24 hr 05/10/25 04:34 WBC 9.3 RBC 5.11 Hgb 14.7 Hct 45.2 MCV 89 MCH 28.8 MCHC 32.5 RDW Std Deviation 50.9 H Plt Count 194 Neut % (Auto) 73 Lymph % (Auto) 14 Tucker % (Auto) 9 Eos % (Auto) 3 Baso % (Auto) 1 Neut # (Auto) 6.8 Lymph # (Auto) 1.3 Tucker # (Auto) 0.9 H Eos # (Auto) 0.3 Baso # (Auto) 0.1 Immature Gran # (Auto) 0.05 H Absolute Nucleated RBC 0.00 Immature Gran % 1 H Nucleated RBC % 0 Sodium 143 Potassium 4.2 Chloride 104 Carbon Dioxide 28.0 Anion Gap 11 BUN 30 H Creatinine 1.0 Estim Creat Clear Calc 92.3 eGFR > 60 BUN/Creatinine Ratio 30 H Glucose 104 Calculated Osmolality 291 Calcium 8.9 Corrected Calcium 9.1 Magnesium 2.1 Total Bilirubin 0.8 ALT 78 H Alkaline Phosphatase 143 H B-Natriuretic Peptide 1392 H* Total Protein 6.5 Albumin 3.7 Globulin 2.8 Albumin/Globulin Ratio 1.3 ABG Interpretation ABG results: 05/01/25 00:59 ABG pH 7.38 ABG pCO2 41 ABG pO2 72 L ABG HCO3 24 ABG O2 Saturation 95 ABG Base Excess -1 Quality Measures Quality Measures VTE prophylaxis Assessment & Plan Assessment Current Active Medications: Generic Name Dose Route Start Last Admin Trade Name Freq PRN Reason Stop Dose Admin Acetaminophen 650 mg 05/01/25 03:42 05/04/25 08:57 Acetaminophen 325 Mg Tablet PO 05/31/25 03:41 650 mg Q6H PRN Administration PAIN OR FEVER > 101 Ascorbic Acid 500 mg 05/02/25 14:30 05/10/25 09:58 Ascorbic Acid 250 Mg Tablet PO 06/01/25 14:29 500 mg BID CHYNA Administration Aspirin 81 mg 05/01/25 09:00 05/10/25 09:58 Aspirin Ec 81 Mg Tabec PO 05/31/25 08:59 81 mg QDAY CHYNA Administration Atorvastatin Calcium 80 mg 05/02/25 21:00 05/09/25 21:09 Atorvastatin Calcium 20 Mg Tablet PO 06/01/25 20:59 80 mg HS CHYNA Administration Balsam Yessi/[place] Oil 0 gm 05/02/25 09:00 05/10/25 09:59 Balsam [place] Oil (Venelex) 60 Gm Tube TOP 06/01/25 08:59 1 applicatio BID CHYNA Administration Bumetanide 1.5 mg 05/09/25 09:00 05/10/25 09:58 Bumetanide 0.5 Mg Tablet PO 06/08/25 08:59 1.5 mg DAILY CHYNA Administration Heparin Sodium (Porcine) 5,000 unit 05/01/25 06:00 05/10/25 14:14 Heparin Sod Inj 5000 Unit/Ml Vial SC 05/15/25 05:59 5,000 unit Q8HR CHYNA Administration Melatonin 6 mg 05/03/25 20:00 05/09/25 21:10 Melatonin 3 Mg Tablet PO 06/02/25 19:59 6 mg DAILY@2000 CHYNA Administration Metoprolol Succinate 25 mg 05/09/25 09:00 05/10/25 09:58 Metoprolol Succinate Xl 25 Mg Tabcr PO 06/08/25 08:59 25 mg QDAY CHYNA Administration Multivitamins 1 tab 05/02/25 14:30 05/10/25 09:59 Multivitamins Tablet PO 06/01/25 14:29 1 tab QDAY CHYNA Administration Ondansetron HCl 4 mg 05/01/25 03:42 Ondansetron Inj 2 Mg/Ml Inj 2 Ml IV 05/31/25 03:41 Q6H PRN NAUSEA OR VOMITING Protocol Sacubitril/Valsartan 1 tab 05/10/25 11:45 05/10/25 12:50 Sacubitril 24 Mg/Valsartan 26 Mg Tablet PO 06/09/25 11:44 1 tab BID CHYNA Administration Sennosides 2 tab 05/01/25 03:42 05/09/25 05:53 Senna Tablet PO 05/31/25 03:41 2 tab BID PRN Administration CONSTIPATION Protocol Tamsulosin HCl 0.4 mg 05/01/25 09:00 05/10/25 09:59 Tamsulosin Hcl 0.4 Mg Capsule PO 05/31/25 08:59 0.4 mg QDAY CHYNA Administration Zinc Sulfate 220 mg 05/02/25 14:30 05/10/25 09:59 Zinc Sulfate 220 Mg Capsule PO 05/16/25 14:29 220 mg QDAY CHYNA Administration Plan Mr. King is a 65-year-old male with medical history of HFrEF, BPH , former user of cocaine (last use 2003), former smoker (30 packs/year quit 2021) who presented to the ED with a chief complaint of shortness of breath and bilateral lower extremity swelling. The patient stopped taking his Lasix for the last 2 weeks, Due to concern for adverse events. The patient was discharged home from hospital recently for CHF exacerbation but has not been established with a diamond sizer and grader outpatient as he lives alone and does not have transport available. The patient has been doing bilateral lower extremity edema extending all the way up to his groin, and had difficulty urinating due to scrotal swelling. Denied fever, chest pain, diarrhea, melena, but endorsed cough with sputum and orthopnea. #Acute decompensated heart failure #Heart failure with reduced ejection fraction, EF 20 to 30% #Mild to moderate AV stenosis #Combined systolic and diastolic heart failure Non compliance with medications, Given IV lasix 80mg x1, Beal catheter in place, adequate urine output, patient had about 2.5 L urine output in the first 24 hours since admission. DVT ruled out. 05/02: Patient is -5.4 L in the last 24 hours, had 8.1 L urine output. 05/03: Patient is -5.6 L, total urine output 7.7 L in the last 24 hours 05/04: Patient is -4.8 L 05/05: Patient is -5.3 L 05/06: Patient is -2.5L 05/07: Patient is -1.4 L Came in with weight of around 120 Kg and now at 102 kg which is mostly close to his dry weight. NET fluid balance on this admission: Total net negative 28 liters -28, 250 ml. Corresponds to 18 to 20 kg weight that he lost Echocardiogram March 2025 shows Dialated cardiomyopathy. Dilated LV. Severe systolic dysfunction. Severe global hypokinesis. Estimated EF 20-30% %. Grade 2 diastolic dysfunction. Mild RV dilatation. Mild RV systolic dysufnction. Mild to modertae AV stenosis. Low gradient due to low EF. Mean PG 12-14 mm hg but JE aroind 1.1 to 1.2 sq cm which indicates at least moderate stenosis. Mild MAC. Mild MR. Mild TR. Trace AI. Mildly dilated LA volume 40.5 mL/m?. Plan: - Continue Bumex 1.5mg p.o. - Patient is on metoprolol succinate 25 mg daily, started on Entresto. - Introduce further GDMT as tolerated, per cardiology recommendations - Aspirin 81 mg qday - Atorvastatin 80mg qhs - Consulted cardiology, following, appreciate recommendations #Acute hepatitis C infection #Decompensated Cirrhosis #MASLD, cardiac cirrhosis #Positive hep C antibody #Hyperbilirubinemia Pt reported no prior history of cirrhosis, hepatitis panel shows positive hep C antibody, possible past infection, other multifactorial etiology, possible MASLD and underlying cardiac cirrhosis Abdomen US Shows: Cholelithiasis, Abnormal thickening of the gallbladder wall 0.6 cm, consider HIDA scan or MRCP follow-up, Common bile duct 0.7 cm no stones, Cirrhosis, fatty infiltration, Mild ascites HIV negative 05/04/2025 RUQ US showed mild gallbladder wall thickened 0.5 cm Patient does have a fatty liver Less concerning for acute obstructive cause, patient does not have any pain, examination unremarkable HCV viral load of 2.5 million HCV RNA quant and positive HCV RNA PCR -Monitor liver panel -Follow CMP daily -Establish outpatient treatment #Bigeminy, PVCs On telemonitor in and out 05/04/2025 EKG ordered showed similar findings as previous -K and Mag replaced to maintain >4.0 and >2.0 respectively #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 Bilateral pedal pulses palpated, no evidence of limb ischemia MONICO (05/01/2025): Right ankle/Brachial index 1.1 and Left ankle/Brachial index 1.1 Plan: - Continue outpatient follow-up with vascular surgery #Cellulitis Received 2 doses of IV ceftriaxone 1g qday Urinalysis shows contamination, squamous epithelial cells more than 20 - Completed treatment Keflex p.o. (05/02-05/09), did receive 2 days of IV ceftriaxone-total 7 days #BPH - Continue home dose tamsulosin #Hyperlipidemia - Continue atorvastatin 40 mg twice Disposition: Telemetry DVT prophylaxis: Heparin subcut GI prophylaxis: none Diet:cardiac, fluid restriction 1500 cc Lines: PIV CODE STATUS: Full Code Patient plan of care was discussed with the attending physician, Dr. Mohan. Dennis Sargent PGY1 Attending Provider Attestation/Addendum I attest that I was physically present for the evaluation, physical examination, lab and imaging review of the patient with the residents. I discussed the case with the residents and agree with the findings and plans of care as documented above. Patient states she is feeling well and denies any new complaints at bedside. Saturating well on room air, appears comfortable. Pedal edema has improved significantly. Continues to be on diuretics. Awaiting placement. La Mohan MD
[2025-05-10] MEDS: ATORVASTATIN CALCIUM 20 MG TABLET 80 MG PO (21:07)
[2025-05-10] MEDS: MELATONIN 3 MG TABLET 6 MG PO (21:08)
[2025-05-11] VITALS (12 sets, daily range): BP systolic 87–110; BP diastolic 46–65; PULSE 72–97; RESP 18–20; TEMP 36.1–36.2; O2SAT 93–95; BMI 14.0; BMI 29.7
[2025-05-11] MEDS: HEPARIN SOD INJ 5000 UNIT/ML VIAL SC ×3 (05:05→22:31)
[2025-05-11 06:37] LABS: Alanine Aminotransferase 76 U/L (10-49); Albumin, Serum 3.6 gm/dL (3.4-4.8); Albumin/Globulin Ratio 1.2 (1.2-2.2); Alkaline Phosphatase 143 U/L (46-116); Anion Gap 9 (7-16); BUN/Creatinine Ratio 27 Ratio (12-20); Bilirubin,Total 0.9 mg/dL (0.3-1.2); Blood Urea Nitrogen 27 mg/dL (9-23); Calcium 8.8 mg/dL (8.3-10.6); Calcium (Corrected) 9.1 mg/dL (8.5-10.1); Carbon Dioxide 29.9 mMol/L (20.0-31.0); Chloride 104 mMol/L (98-107); Estimated Creatinine Clearance 92.3 mL/min (>60); Globulin 2.9 gm/dL (2.3-3.5); Glucose 100 mg/dL (74-106); Magnesium 1.9 mg/dL (1.6-2.6); Osmolality,Calculated 290 (275-295); Potassium 4.4 mMol/L (3.4-5.1); Sodium 143 mMol/L (136-145); Total Protein 6.5 gm/dL (5.7-8.2); eGFR > 60 See Note
[2025-05-11] MEDS: ASCORBIC ACID 250 MG TABLET 500 MG PO ×2 (08:50→20:41)
[2025-05-11] MEDS: ASPIRIN EC 81 MG TABEC PO (08:50)
[2025-05-11] MEDS: BUMETANIDE 0.5 MG TABLET 1.5 MG PO (08:51)
[2025-05-11] MEDS: ZINC SULFATE 220 MG CAPSULE PO (08:55)
[2025-05-11] MEDS: METOPROLOL SUCCINATE XL 25 MG TABCR PO (08:56)
[2025-05-11] MEDS: MULTIVITAMINS TABLET 1 TAB PO (08:56)
[2025-05-11] MEDS: TAMSULOSIN HCL 0.4 MG CAPSULE PO (08:56)
[2025-05-11] MEDS: SACUBITRIL 24 MG/VALSARTAN 26 MG TABLET 0.5 TAB PO (08:56)
--- NOTE | 2025-05-11 09:36 | PD.RESPRO ---
Documentation for date of: 05/11/25 Subjective Subjective Interval history: Patient is a 65-year-old male with a past medical history of CHF HFrEF 25 to 30% (03/15/2025), former history of heart disease, cocaine use disorder, and past medical history cigarette use, who presented with a chief complaint of lower swelling and increased shortness of breath. Patient stated he stopped taking his medication for about 2 weeks secondary to increased anxiety in regards to side effects, patient was unable to clearly define concern. Increased shortness of breath upon ambulation, requiring patient to sleep in a sitting position, and shortness of breath wakes him up from sleep. Increased shortness of breath with ambulation. Patient describes symptoms related to orthopnea and paroxysmal nocturnal dyspnea. Denied palpitations. Patient denied chest pain or syncopal event. Patient denied recent history of sick contacts. Denied pyrexia at home. Denied past history of COPD. Denied worsening cough. Patient decided to seek further medical attention from the ER as swelling increased into lower quadrant abdomen and increased scrotal edema noted prior to admission. 05/10/2025: No overnight events for patient. Patient denied chest pain or shortness of breath. Resolved lower peripheral edema. -START Entresto half (1/2) tablet bid for GDMT and monitor renal function. Paitent pending SNF. Follow up on repeat BNP 05/11/2025: Robyn overnight events. Patinet is pending SNF. Patient is ambulating with help. Patinet denied chest pain, dyspnea, and lower pedal edema resolved. Entresto 1 tablet BID and Bumex 1 mg PO qday. Continue metoprolol succinate 25 mg PO Qday Exam Vital Signs Temp Pulse Resp BP Pulse Ox O2 Del Method 97.2 F 88 18 110/48 L 95 Room Air 05/11/25 08:00 05/11/25 08:56 05/11/25 08:00 05/11/25 08:56 05/11/25 08:00 05/11/25 08:00 Narrative Exam General Appearance: Alert & Oriented X3, well-nourished male who is lying in bed in no acute distress HEENT: Skull symmetrical and atraumatic. Conjunctivae pink and moist. Pupils equal, round, reactive to light and accommodation (PERRL). External ear without lesion or discharge. Straight, nares patient, mucosa pink, no discharge. Cardio: Normal Rate and Rhythm with S1 and S2 heart sounds, distant heart sounds. Heart sounds difficult to appreciate, possible holosystolic murmur and bruit on carotid auscultation. Peripheral edema resolved. No scrotal edema noted. Lungs: Symmetric with good expansion. Chest and back non-tender. Decreased vesicular breath sounds Abdomen: Non-tender, Non-distended, Normal Reactive Bowel Sounds Neuro: Alert, cooperative, oriented to person, place, and time. Speech clear. CN grossly intact. Upper motor strength 5/5 and Lower motor strength 5/5. Sensation Objective Labs 05/10/25 04:34 05/11/25 05:39 Labs: Laboratory Results - last 24 hr 05/11/25 05:39 Sodium 143 Potassium 4.4 Chloride 104 Carbon Dioxide 29.9 Anion Gap 9 BUN 27 H Creatinine 1.0 Estim Creat Clear Calc 92.3 eGFR > 60 BUN/Creatinine Ratio 27 H Glucose 100 Calculated Osmolality 290 Calcium 8.8 Corrected Calcium 9.1 Magnesium 1.9 Total Bilirubin 0.9 ALT 76 H Alkaline Phosphatase 143 H Total Protein 6.5 Albumin 3.6 Globulin 2.9 Albumin/Globulin Ratio 1.2 ABG Interpretation ABG results: 05/01/25 00:59 ABG pH 7.38 ABG pCO2 41 ABG pO2 72 L ABG HCO3 24 ABG O2 Saturation 95 ABG Base Excess -1 Quality Measures Quality Measures VTE prophylaxis Assessment & Plan Assessment Current Active Medications: Generic Name Dose Route Start Last Admin Trade Name Freq PRN Reason Stop Dose Admin Acetaminophen 650 mg 05/01/25 03:42 05/04/25 08:57 Acetaminophen 325 Mg Tablet PO 05/31/25 03:41 650 mg Q6H PRN Administration PAIN OR FEVER > 101 Ascorbic Acid 500 mg 05/02/25 14:30 05/11/25 08:50 Ascorbic Acid 250 Mg Tablet PO 06/01/25 14:29 500 mg BID CHYNA Administration Aspirin 81 mg 05/01/25 09:00 05/11/25 08:50 Aspirin Ec 81 Mg Tabec PO 05/31/25 08:59 81 mg QDAY CHYNA Administration Atorvastatin Calcium 80 mg 05/02/25 21:00 05/10/25 21:07 Atorvastatin Calcium 20 Mg Tablet PO 06/01/25 20:59 80 mg HS CHYNA Administration Balsam [place] Oil 0 gm 05/02/25 09:00 05/11/25 08:51 Balsam Yessi/[place] Oil (Venelex) 60 Gm Tube TOP 06/01/25 08:59 Not Given BID CHYNA Bumetanide 1.5 mg 05/09/25 09:00 05/11/25 08:51 Bumetanide 0.5 Mg Tablet PO 06/08/25 08:59 1.5 mg DAILY CHYNA Administration Heparin Sodium (Porcine) 5,000 unit 05/01/25 06:00 05/11/25 05:05 Heparin Sod Inj 5000 Unit/Ml Vial SC 05/15/25 05:59 5,000 unit Q8HR CHYNA Administration Melatonin 6 mg 05/03/25 20:00 05/10/25 21:08 Melatonin 3 Mg Tablet PO 06/02/25 19:59 6 mg DAILY@2000 CHYNA Administration Metoprolol Succinate 25 mg 05/09/25 09:00 05/11/25 08:56 Metoprolol Succinate Xl 25 Mg Tabcr PO 06/08/25 08:59 25 mg QDAY CHYNA Administration Multivitamins 1 tab 05/02/25 14:30 05/11/25 08:56 Multivitamins Tablet PO 06/01/25 14:29 1 tab QDAY CHYNA Administration Ondansetron HCl 4 mg 05/01/25 03:42 Ondansetron Inj 2 Mg/Ml Inj 2 Ml IV 05/31/25 03:41 Q6H PRN NAUSEA OR VOMITING Protocol Sacubitril/Valsartan 1 tab 05/11/25 21:00 Sacubitril 24 Mg/Valsartan 26 Mg Tablet PO 06/10/25 20:59 BID CHYNA Sennosides 2 tab 05/01/25 03:42 05/09/25 05:53 Senna Tablet PO 05/31/25 03:41 2 tab BID PRN Administration CONSTIPATION Protocol Tamsulosin HCl 0.4 mg 05/01/25 09:00 05/11/25 08:56 Tamsulosin Hcl 0.4 Mg Capsule PO 05/31/25 08:59 0.4 mg QDAY CHYNA Administration Zinc Sulfate 220 mg 05/02/25 14:30 05/11/25 08:55 Zinc Sulfate 220 Mg Capsule PO 05/16/25 14:29 220 mg QDAY CHYNA Administration Plan The patient is a 65-year-old male with medical history of HFrEF (20-30%), BPH , former user of cocaine (last use 2003), former smoker (30 packs/year quit 2021) who was admitted on 05/01/2025 for acute CHF exacerbation. # Acute on chronic severe systolic & Diastolic Dysfunction CHF exacerbation EF 25-30% (03/15/2025) # Mild to Moderate AV Stenosis # Multifocal atrial tachycardia # Essential hypertension # Hyperlipidemia Etiology: Etiology: Past medical history of CHF in the setting of cardiomyopathy in the setting of past medical history of cocaine use disorder and smoking history vs ischemic heart condition given deep Q waves noted on EKG w/ MAT pattern. 05/10/2025: NET +250 Total Net Balance during hospital visit: -28, 250 ml (05/01/2025-05/10/2025) Dry weight: 102 kg Repeat BNP:1392 (baseline when not in CHF exacerbation) Dx: Echo (03/15/2025): Dilated LV. Severe systolic dysfunction. Severe global hypokinesis. Estimated EF 20-30% %. Grade 2 diastolic dysfunction. Mild RV dilatation. Mild RV systolic dysufnction. Mild to modertae AV stenosis. Low gradient due to low EF. Mean PG 12-14 mm hg but JE aroind 1.1 to 1.2 sq cm which indicates at least moderate stenosis. Mild MAC. Mild MR. Mild TR. Trace AI. Mildly dilated LA volume 40.5 mL/m?. TSH 1.20 BNP 3100. Troponin within normal limits LIpid Panel Triglycerides 67, Cholesterol 127, LDL 81, HDL 33, A1c 5.4% NYHA Class: III ASCVD: High-intensity Statins recommended DRY WEIGHT 102; DRY BNP 1392 (versus 3100 on admission) Plan: -Bumex 1 mg PO QDay -Metoprolol 25 mg PO Qday -Entresto 1 tablet PO BID -Aspirin 81 mg PO Qday -Atorvastatin 80 mg PO HS -Work towards GDMT, given EF outpatient Spirnolactone -K>4 and Mg >2 -Fluid Restriction 1500ml and Sodium Restriction 2 g per day -SpO >90%, support PRN Came in with weight of around 120 Kg and now at 102 kg which is mostly close to his dry weight. NET fluid balance on this admission: Total net negative 28 liters -28, 250 ml. Corresponds to 18 to 20 kg weight that he lost. Pending SNF placement. Dc on Bumex 1.0 mg PO qday and Metroprolol xl 25 mg PO qday. Will need GDMT spirnolactone based on renal function and BP #Cirrhosis, Mild Ascites likely secondary to #Hepatitis C hepatitis C given positive Hepatitis Panel & likely LIAO contributing to finding given BMI of 35, history of HLD, and Fatty infiltration findings on CT vs less likely secondary to alcohol use disorder as AST/ALT within normal limits. Hepatitis Panel: Positive for Hep C HCV RNA : 6.40 & [id number] AST 32 ALT 24 Total Bili 1.0/Direct 0.4-->AST 41 ALT 25 Total Bili 1.3 US Abdomen: There is 16.4 cm irregular contour fatty infiltration mild ascites Normal hepatopedal portal venous flow. Patent IVC Child Moran Score 6 points, Class A, Life Expectancy 15-20 years Plan -Hepatitis C positive, patient would benefit from ID consult/referral -Primary Team started patient on Ascorbic Acid -Patient would benefit from biopsy outpatient & follow up outpatient for Hep C #Cellulitis Bilateral erythema likely secondary to venous stasis vs cellulits less likely no pyrexia and no leukocytosis, treating empirically Plan Cephalexin 1000 PO TID (05/02/2025-05/09/2025) Blood cultures negative 48 hours #Incidental Left Common Iliac artery, narrow MONICO (05/01/2025): Right ankle/Brachial index 1.1 and Left ankle/Brachial index 1.1 Plan -Consider outpatient exercise induced MONICO #Bilateral Parenchyal scar formation #BPH -Resume home dose of Tamsulosin #Incidental finding Mild aneurysm Dilation abdominal Aorta -Follow up outpatient Health Maintenance: Disp: Pt is currently admitted to floors for further management of CHF , please have patient follow up with cardiology, Dr. Mcclelland, within one week of discharge FEN: Cardiac Diet, Fluid Restriction 1500 ml DVT: on subQ heparin Q8HRs Code: Full code - The patient's plan was discussed with attending Dr. Krystin Montgomery MD PGY1 Internal Medicine Attending Provider Attestation/Addendum I have personally seen and examined the patient separately on the above date of service and discussed the plan of care with the resident. I reviewed the resident Dr. Sommer Montgomery consultation progress note and agree with the resident findings and plan in the note above and have also edited the documentation to reflect my findings and plan. Ernie Mcclelland M.D. Interventional Cardiology
--- NOTE | 2025-05-11 09:44 | PC.SS ---
SS has received call from Jen [phone] at [email or web address] [facility] who explained she is on leave and does not work for [employer]. Jen provided Jazz's phone# [phone] to contact. SS contacted Jazz at 9:21 & 10am but was only able to leave vocemail with SS contact information and informing her [facility] is waiting for JUAN. SS also attempted to contact India at [facility], but was only able to leave voicemail (9:26am & 10:01am). SS has emailed Bradley and Beryl Lerner from [employer]. SS also emailed Bradley yesterday 05-10-25. SS is still waiting for response. SS has communicated with Lien at [employer] and she is still attempting to contact Segment Assembler at [facility]. SS met with pt who is refusing to return home until his health insurance denies SNF placement. Patient's choice is [facility]. Pt is open to a different SNF if insurance does not approve of [facility]. 2nd choice is [facility], 3rd is [facility], 4th is [facility]
--- NOTE | 2025-05-11 11:32 | PC.SS ---
Addendum entered by Genna Pozo 05/12/25 16:59: SS received call from Krysten at [facility] phone# [phone] who is aware [facility] is unable to accept due to not having bed available. Krysten explained she has provided [facility] with JUAN and now will change [facility] to [facility]. New insurance authorization #is: [id number]. has provided Krysten with the phone number to [facility], [facility] and [facility]. SS spoke to Connie Mcgill from [facility] who states they can accept pt tomorrow morning. Rain VELASQUEZ will setup transportation tomorrow for 10am hop picker time. SS has informed bedside nurse, Olamide. Pt is aware and is agreeable. has also informed patient's brother, Mook by phone while in patient's room. Connie Mcgill is aware. Addendum entered by Genna Pozo 05/12/25 15:50: SS received email from Kaykay she is out of the office and to contact Jazz at [phone](supervisor publications production). has left Jazz voicemail with contact information and informed her [facility] will accept pt now and start insurance authorization. Addendum entered by Genna Pozo 05/12/25 15:36: SS was recently informed by Lien at [facility] they are unable to accept pt now due to not having any male beds available. Lien is aware she has insurance authorization and was waiting for JUAN. Lien states she will call Kaykay from patient's health insurance and inform her [facility] is still accepting and to provide them with insurance authorization/JUAN. has spoken to Connie Sanchez and Connie Rosario who are aware and will be working on obtaining insurance authorization and JUAN. has sent PASRR and updated inquiry to [facility] using [facility]. Pt is aware and is agreeable to [facility]. Pt is still refusing to return home until insurance declines SNF placement. Addendum entered by Genna Pozo 05/12/25 14:50: has sent email to: [email or web address]. Addendum entered by Genna Pozo 05/12/25 14:49: SS called [place] from [employer] [phone] and her voicemail states not to leave message due to not working for this company anymore and to contact 3 different representatives: Kait, phone# [phone]. SS called Kait and voicemail states out of office from May 19- and will return May 30. Voicemail also indicated to call [phone] Feli, phone#[phone]. SS called and number is disconnected Lurdes Ynig, phone# [phone]. SS called and left voicemail stating [facility] is waiting for JU[facility] Addendum entered by Genna Pozo 05/12/25 12:41: [facility] has declined on [facility]. Addendum entered by Genna Pozo 05/12/25 11:08: SS called and left Kaykay (from patient's health insurance) voicemail. SS has met with pt who is aware his health insurance has not provided JUAN to [facility]. SS provided pt with choice is to return home and pt refused stating he will wait for his insurance to approve or decline SNF. Addendum entered by Genna Pozo 05/11/25 16:04: SHAINA and bedside nurse, Kaz met with pt who confirmed SNF of his choice is still [facility]. Pt is aware Kaykay from [employer] is working on JUAN. Pt again refused to return home and is requesting to d/c to [facility] SNF if his insurance approves. Original Note: SS has received call from Kaykay [phone] from patient's health insurance who explained Bradley is not employed at [employer] anymore. Per Kaykay, Letter of Agreement has not been submitted and she will contact Lien at [facility] to discuss d/c. SHAINA has provided Kaykay with Lien's phone#. Kaykay is aware patient's choice is [facility], and they have accepted, and they have insurance authorization.
--- NOTE | 2025-05-11 16:47 | ESPR_ITS ---
<Statement entered by Leila Taylor MD - 05/20/25 15:03> I reviewed above note and agree with findings and plans. I have also personally examined the patient with medicine team and went over assessment and plan with medical team including engineering intern and resident physician. Documentation for date of: 05/11/25 Subjective Subjective Interval history: No acute events overnight.?Patient seen and examined at bedside this AM.?Doing well. Encouraged patient to ambulated with help of staff daily. Labs and vitals were reviewed, BP soft but stable, patient tolerating diuretic, Entresto, and beta-daysi.?No further complaints at this time. Still awaiting Letter of Agreement with insurance for hopeful discharge to SNF. Review of systems otherwise negative except what is mentioned above. Exam Vital Signs Temp Pulse Resp BP Pulse Ox O2 Del Method 97.2 F 85 18 93/55 L 95 Room Air 05/11/25 16:00 05/11/25 16:00 05/11/25 16:00 05/11/25 16:00 05/11/25 16:05/11/25 16:00 Narrative Exam GENERAL: Awake, alert and oriented. No acute distress. HEENT: Normocephalic, atraumatic and nontender.? Pupils are equal and reactive to light and accommodation.? Oral mucosa moist. NECK: Supple without adenopathy. Traquea midline. Nontender, carotid pulse 2+ bilaterally without bruits, no JVD.? CHEST: Heart rate and rythm normal, no murmurs, gallops auscultated. S1 & 2 normal insensity. Nontender on palpation, no deformity and no crepitus. LUNGS: Lung sounds are clear.? No wheezing, rales or ronchi.? No intercostal subcostal retraction. Room air ABDOMEN: Soft, symmetric, nontender, no guarding or rebound tenderness. No abnormal masses palpated.? No pulsatile masses or bruits.? Bowel sounds are normoactive in all 4 quadrants. EXTREMITIES: Nontender.? trace pitting edema.? No cyanosis.? Venous stasis dermatitis SKIN: No rashes noted. NEURO:? Cranial nerves intact.? There is no focalization.? GCS is 15. Objective Labs 05/10/25 04:34 05/11/25 05:39 Labs: Laboratory Results - last 24 hr 05/11/25 05:39 Sodium 143 Potassium 4.4 Chloride 104 Carbon Dioxide 29.9 Anion Gap 9 BUN 27 H Creatinine 1.0 Estim Creat Clear Calc 92.3 eGFR > 60 BUN/Creatinine Ratio 27 H Glucose 100 Calculated Osmolality 290 Calcium 8.8 Corrected Calcium 9.1 Magnesium 1.9 Total Bilirubin 0.9 ALT 76 H Alkaline Phosphatase 143 H Total Protein 6.5 Albumin 3.6 Globulin 2.9 Albumin/Globulin Ratio 1.2 ABG Interpretation ABG results: 05/01/25 00:59 ABG pH 7.38 ABG pCO2 41 ABG pO2 72 L ABG HCO3 24 ABG O2 Saturation 95 ABG Base Excess -1 Quality Measures Quality Measures VTE prophylaxis Assessment & Plan Assessment Current Active Medications: Generic Name Dose Route Start Last Admin Trade Name Freq PRN Reason Stop Dose Admin Acetaminophen 650 mg 05/01/25 03:42 05/04/25 08:57 Acetaminophen 325 Mg Tablet PO 05/31/25 03:41 650 mg Q6H PRN Administration PAIN OR FEVER > 101 Ascorbic Acid 500 mg 05/02/25 14:30 05/11/25 08:50 Ascorbic Acid 250 Mg Tablet PO 06/01/25 14:29 500 mg BID CHYNA Administration Aspirin 81 mg 05/01/25 09:00 05/11/25 08:50 Aspirin Ec 81 Mg Tabec PO 05/31/25 08:59 81 mg QDAY CHYNA Administration Atorvastatin Calcium 80 mg 05/02/25 21:00 05/10/25 21:07 Atorvastatin Calcium 20 Mg Tablet PO 06/01/25 20:59 80 mg HS CHYNA Administration Balsam [place] Oil 0 gm 05/02/25 09:00 05/11/25 08:51 Balsam [place] Oil (Venelex) 60 Gm Tube TOP 06/01/25 08:59 Not Given BID CHYNA Bumetanide 1 mg 05/12/25 09:00 Bumetanide 0.5 Mg Tablet PO 06/11/25 08:59 DAILY CHYNA Heparin Sodium (Porcine) 5,000 unit 05/01/25 06:00 05/11/25 14:37 Heparin Sod Inj 5000 Unit/Ml Vial SC 05/15/25 05:59 5,000 unit Q8HR CHYNA Administration Melatonin 6 mg 05/03/25 20:00 05/10/25 21:08 Melatonin 3 Mg Tablet PO 06/02/25 19:59 6 mg DAILY@2000 CHYNA Administration Metoprolol Succinate 25 mg 05/09/25 09:00 05/11/25 08:56 Metoprolol Succinate Xl 25 Mg Tabcr PO 06/08/25 08:59 25 mg QDAY CHYNA Administration Multivitamins 1 tab 05/02/25 14:30 05/11/25 08:56 Multivitamins Tablet PO 06/01/25 14:29 1 tab QDAY CHYNA Administration Ondansetron HCl 4 mg 05/01/25 03:42 Ondansetron Inj 2 Mg/Ml Inj 2 Ml IV 05/31/25 03:41 Q6H PRN NAUSEA OR VOMITING Protocol Sacubitril/Valsartan 1 tab 05/11/25 21:00 Sacubitril 24 Mg/Valsartan 26 Mg Tablet PO 06/10/25 20:59 BID CHYNA Sennosides 2 tab 05/01/25 03:42 05/09/25 05:53 Senna Tablet PO 05/31/25 03:41 2 tab BID PRN Administration CONSTIPATION Protocol Tamsulosin HCl 0.4 mg 05/01/25 09:00 05/11/25 08:56 Tamsulosin Hcl 0.4 Mg Capsule PO 05/31/25 08:59 0.4 mg QDAY CHYNA Administration Zinc Sulfate 220 mg 05/02/25 14:30 05/11/25 08:55 Zinc Sulfate 220 Mg Capsule PO 05/16/25 14:29 220 mg QDAY CHYNA Administration Plan Mr. King is a 65-year-old male with medical history of HFrEF, BPH, former user of cocaine (last use 2003), former smoker (30 packs/year quit 2021) who presented to the ED on 05/01/2025 with a chief complaint of shortness of breath and bilateral lower extremity swelling secondary to noncompliance. #Acute decompensated heart failure #Heart failure with reduced ejection fraction, EF 20 to 30% #Mild to moderate AV stenosis #Combined systolic and diastolic heart failure Non compliance with medications, Given IV lasix 80mg x1, Beal catheter in place, adequate urine output, patient had about 2.5 L urine output in the first 24 hours since admission. DVT ruled out. 05/02: Patient is -5.4 L in the last 24 hours, had 8.1 L urine output. 06/03: Patient is -5.6 L, total urine output 7.7 L in the last 24 hours 05/04: Patient is -4.8 L 05/05: Patient is -5.3 L 05/06: Patient is -2.5 L 05/07: Patient is -1.4 L Came in with weight of around 120 Kg and now at 102 kg which is mostly close to his dry weight. NET fluid balance on this admission: Total net negative 28 liters -28, 250 ml. Corresponds to 18 to 20 kg weight that he lost Echocardiogram March 2025 shows dilated cardiomyopathy. Dilated LV. Severe systolic dysfunction. Severe global hypokinesis. Estimated EF 20-30%. Grade 2 diastolic dysfunction. Mild RV dilatation. Mild RV systolic dysfunction. Mild to moderate AV stenosis. Low gradient due to low EF. Mean PG 12-14 mm hg but JE around 1.1 to 1.2 sq cm which indicates at least moderate stenosis. Mild MAC. Mild MR. Mild TR. Trace AI. Mildly dilated LA volume 40.5 mL/m?. Plan: - Continue Bumex 1 mg PO qday - Continue metoprolol succinate 25 mg daily - Continue Entresto 24-26 mg BID. - Introduce further GDMT as tolerated, per cardiology recommendations - Aspirin 81 mg qday - Atorvastatin 80mg qhs #Acute hepatitis C infection #Decompensated cirrhosis #MASLD, cardiac cirrhosis #Positive hep C antibody #Hyperbilirubinemia Pt reported no prior history of cirrhosis, hepatitis panel shows positive hep C antibody, possible past infection, other multifactorial etiology, possible MASLD and underlying cardiac cirrhosis Abdomen US Shows: Cholelithiasis, Abnormal thickening of the gallbladder wall 0.6 cm, consider HIDA scan or MRCP follow-up, Common bile duct 0.7 cm no stones, Cirrhosis, fatty infiltration, Mild ascites HIV negative 05/04/2025 RUQ US showed mild gallbladder wall thickened 0.5 cm Patient does have a fatty liver Less concerning for acute obstructive cause, patient does not have any pain, examination unremarkable HCV viral load of 2.5 million HCV RNA quant and positive HCV RNA PCR - Monitor liver panel - Follow CMP daily - Establish outpatient treatment #Bigeminy, PVCs On telemonitor in and out 05/04/2025 EKG ordered showed similar findings as previous - K and Mag maintain >4.0 and >2.0 respectively #Mild aneurysm dilation abdominal Aorta #Narrow left comon Iliac Artery Patient has aortoiliac stent, does complain of left leg pain on and off, does have underlying cellulitis CT chest abdomen pelvis shows severe narrowing left common iliac, patient does have a aortic iliac stent. Bilateral pedal pulses palpated, no evidence of limb ischemia MONICO (05/01/2025): Right ankle/Brachial index 1.1 and Left ankle/Brachial index 1.1 Plan: - Continue outpatient follow-up with vascular surgery #Cellulitis - resolved Received 2 doses of IV ceftriaxone 1g qday Urinalysis shows contamination, squamous epithelial cells more than 20 - Completed treatment Keflex p.o. (05/02-05/09), did receive 2 days of IV ceftriaxone-total 7 days #BPH - Continue home dose tamsulosin #Hyperlipidemia - Continue atorvastatin 40 mg twice Disposition: Telemetry DVT prophylaxis: Heparin subcut GI prophylaxis: none Diet:cardiac, fluid restriction 1500 cc Lines: PIV CODE STATUS: Full Code Patient plan of care was discussed with the attending physician, Dr. Taylor. Aaliyah Lanier, PGY-2
--- NOTE | 2025-05-11 20:37 | PC.NURSE ---
Dr. Boyce notified of BP 91/47 (MAP 61) and in the other arm 87/57 (MAP 67) with inquiry if to give or hold Entresto. stated to hold [place]. Patient asymptomatic. Will closely monitor.
[2025-05-11] MEDS: MELATONIN 3 MG TABLET 6 MG PO (20:41)
[2025-05-11] MEDS: ATORVASTATIN CALCIUM 20 MG TABLET 80 MG PO (20:41)
[2025-05-12] VITALS (10 sets, daily range): BP systolic 91–122; BP diastolic 58–93; PULSE 77–101; RESP 16–21; TEMP 35.6–36.3; O2SAT 93–98
[2025-05-12] MEDS: HEPARIN SOD INJ 5000 UNIT/ML VIAL SC ×3 (05:14→21:03)
[2025-05-12 06:29] LABS: Alanine Aminotransferase 86 U/L (10-49); Albumin, Serum 3.8 gm/dL (3.4-4.8); Albumin/Globulin Ratio 1.3 (1.2-2.2); Alkaline Phosphatase 156 U/L (46-116); Anion Gap 9 (7-16); BUN/Creatinine Ratio 31 Ratio (12-20); Bilirubin,Total 0.9 mg/dL (0.3-1.2); Blood Urea Nitrogen 28 mg/dL (9-23); Calcium (Corrected) 9.2 mg/dL (8.5-10.1); Chloride 106 mMol/L (98-107); Creatinine (Component) 0.9 mg/dL (0.6-1.3); Estimated Creatinine Clearance 102.5 mL/min (>60); Glucose 104 mg/dL (74-106); Osmolality,Calculated 290 (275-295); Potassium 4.8 mMol/L (3.4-5.1); Sodium 143 mMol/L (136-145); Total Protein 6.8 gm/dL (5.7-8.2); eGFR > 60 See Note
[2025-05-12] MEDS: ASPIRIN EC 81 MG TABEC PO (09:50)
[2025-05-12] MEDS: ASCORBIC ACID 250 MG TABLET 500 MG PO ×2 (09:50→20:57)
[2025-05-12] MEDS: ZINC SULFATE 220 MG CAPSULE PO (09:50)
[2025-05-12] MEDS: BUMETANIDE 0.5 MG TABLET 1 MG PO (09:51)
[2025-05-12] MEDS: METOPROLOL SUCCINATE XL 25 MG TABCR PO (09:52)
[2025-05-12] MEDS: TAMSULOSIN HCL 0.4 MG CAPSULE PO (09:52)
[2025-05-12] MEDS: MULTIVITAMINS TABLET 1 TAB PO (09:52)
[2025-05-12] MEDS: SACUBITRIL 24 MG/VALSARTAN 26 MG TABLET 1 TAB PO (09:52)
--- NOTE | 2025-05-12 13:54 | ESPR_ITS ---
<Statement entered by Leila Taylor MD - 05/24/25 08:54> I reviewed above note and agree with findings and plans. I have also personally examined the patient with medicine team and went over assessment and plan with medical team including epidemiology intern and resident physician. Documentation for date of: 05/12/25 Subjective Subjective Interval history: Last night, BP was soft with a MAP of just 60 so last night dose of Entresto was held.?Patient seen and examined at bedside this AM, BP was improved at 104/64, morning dose of Entresto is given.?Will reduce dose to 0.5 tab BID per Cardio recs. Patient reports feeling well, denies shortness of breath, chest pain, dizziness, any other symptoms. Spoke with RN to have patient ambulated at least once daily. Labs and vitals were reviewed.?Labs are stable, patient remains on room air. No further complaints at this time. Still pending Letter of Agreement with insurance for hopeful SNF placement. Review of systems otherwise negative except what is mentioned above. Exam Vital Signs Temp Pulse Resp BP Pulse Ox O2 Del Method 97.0 F 101 H 16 107/58 L 94 L Room Air 05/12/25 08:15 05/12/25 12:00 05/12/25 08:15 05/12/25 09:52 05/12/25 08:15 05/12/25 08:15 Narrative Exam GENERAL: Awake, alert and oriented. No acute distress. HEENT: Normocephalic, atraumatic and nontender.? Pupils are equal and reactive to light and accommodation.? Oral mucosa moist. NECK: Supple without adenopathy. Traquea midline. Nontender, carotid pulse 2+ bilaterally without bruits, no JVD.? CHEST: Heart rate and rythm normal, no murmurs, gallops auscultated. S1 & 2 normal insensity. Nontender on palpation, no deformity and no crepitus. LUNGS: Lung sounds are clear.? No wheezing, rales or ronchi.? No intercostal subcostal retraction. Room air ABDOMEN: Soft, symmetric, nontender, no guarding or rebound tenderness. No abnormal masses palpated.? No pulsatile masses or bruits.? Bowel sounds are normoactive in all 4 quadrants. EXTREMITIES: Nontender.? trace pitting edema.? No cyanosis.? Venous stasis dermatitis SKIN: No rashes noted. NEURO:? Cranial nerves intact.? There is no focalization.? GCS is 15. Objective Labs 05/10/25 04:34 05/12/25 05:11 Labs: Laboratory Results - last 24 hr 05/12/25 05:11 Sodium 143 Potassium 4.8 Chloride 106 Carbon Dioxide 28.0 Anion Gap 9 BUN 28 H Creatinine 0.9 Estim Creat Clear Calc 102.5 eGFR > 60 BUN/Creatinine Ratio 31 H Glucose 104 Calculated Osmolality 290 Calcium 9.0 Corrected Calcium 9.2 Magnesium 2.0 Total Bilirubin 0.9 ALT 86 H Alkaline Phosphatase 156 H Total Protein 6.8 Albumin 3.8 Globulin 3.0 Albumin/Globulin Ratio 1.3 ABG Interpretation ABG results: 05/01/25 00:59 ABG pH 7.38 ABG pCO2 41 ABG pO2 72 L ABG HCO3 24 ABG O2 Saturation 95 ABG Base Excess -1 Quality Measures Quality Measures VTE prophylaxis Assessment & Plan Assessment Current Active Medications: Generic Name Dose Route Start Last Admin Trade Name Ruddyq PRN Reason Stop Dose Admin Acetaminophen 650 mg 05/01/25 03:42 05/04/25 08:57 Acetaminophen 325 Mg Tablet PO 05/31/25 03:41 650 mg Q6H PRN Administration PAIN OR FEVER > 101 Ascorbic Acid 500 mg 05/02/25 14:30 05/12/25 09:50 Ascorbic Acid 250 Mg Tablet PO 06/01/25 14:29 500 mg BID CHYNA Administration Aspirin 81 mg 05/01/25 09:00 05/12/25 09:50 Aspirin Ec 81 Mg Tabec PO 05/31/25 08:59 81 mg QDAY CHYNA Administration Atorvastatin Calcium 80 mg 05/02/25 21:00 05/11/25 20:41 Atorvastatin Calcium 20 Mg Tablet PO 06/01/25 20:59 80 mg HS CHYNA Administration Bumetanide 1 mg 05/12/25 09:00 05/12/25 09:51 Bumetanide 0.5 Mg Tablet PO 06/11/25 08:59 1 mg DAILY CHYNA Administration Heparin Sodium (Porcine) 5,000 unit 05/01/25 06:00 05/12/25 05:14 Heparin Sod Inj 5000 Unit/Ml Vial SC 05/15/25 05:59 5,000 unit Q8HR CHYNA Administration Melatonin 6 mg 05/03/25 20:00 05/11/25 20:41 Melatonin 3 Mg Tablet PO 06/02/25 19:59 6 mg DAILY@2000 CHYNA Administration Metoprolol Succinate 25 mg 05/09/25 09:00 05/12/25 09:52 Metoprolol Succinate Xl 25 Mg Tabcr PO 06/08/25 08:59 25 mg QDAY CHYNA Administration Multivitamins 1 tab 05/02/25 14:30 05/12/25 09:52 Multivitamins Tablet PO 06/01/25 14:29 1 tab QDAY CHYNA Administration Ondansetron HCl 4 mg 05/01/25 03:42 Ondansetron Inj 2 Mg/Ml Inj 2 Ml IV 05/31/25 03:41 Q6H PRN NAUSEA OR VOMITING Protocol Sacubitril/Valsartan 1 tab 05/11/25 21:00 05/12/25 09:52 Sacubitril 24 Mg/Valsartan 26 Mg Tablet PO 06/10/25 20:59 1 tab BID CHYNA Administration Sennosides 2 tab 05/01/25 03:42 05/09/25 05:53 Senna Tablet PO 05/31/25 03:41 2 tab BID PRN Administration CONSTIPATION Protocol Tamsulosin HCl 0.4 mg 05/01/25 09:00 05/12/25 09:52 Tamsulosin Hcl 0.4 Mg Capsule PO 05/31/25 08:59 0.4 mg QDAY CHYNA Administration Zinc Sulfate 220 mg 05/02/25 14:30 05/12/25 09:50 Zinc Sulfate 220 Mg Capsule PO 05/16/25 14:29 220 mg QDAY CHYNA Administration Plan Mr. King is a 65-year-old male with medical history of HFrEF, BPH, former user of cocaine (last use 2003), former smoker (30 packs/year quit 2021) who presented to the ED on 05/01/2025 with a chief complaint of shortness of breath and bilateral lower extremity swelling secondary to noncompliance. #Acute decompensated heart failure - resolved #Heart failure with reduced ejection fraction, EF 20 to 30% #Mild to moderate AV stenosis #Combined systolic and diastolic heart failure Secondary to non-compliance with medications, patient does not have consistent housing. Came in with weight of around 120 kg and now at 102 kg which is mostly close to his dry weight. NET fluid balance on this admission: Total net negative 28 liters. Corresponds to 18 to 20 kg weight that he lost. Echocardiogram March 2025 shows dilated cardiomyopathy. Dilated LV. Severe systolic dysfunction. Severe global hypokinesis. Estimated EF 20-30%. Grade 2 diastolic dysfunction. Mild RV dilatation. Mild RV systolic dysfunction. Mild to moderate AV stenosis. Low gradient due to low EF. Mean PG 12-14 mm hg but JE around 1.1 to 1.2 sq cm which indicates at least moderate stenosis. Mild MAC. Mild MR. Mild TR. Trace AI. Mildly dilated LA volume 40.5 mL/m?. - Continue Bumex 1 mg PO qday - Continue metoprolol succinate 25 mg daily - Changed Entresto dose from 24-26 mg BID to half tab 12-13 mg BID. - Introduce further GDMT as tolerated, per cardiology recommendations - Aspirin 81 mg qday - Atorvastatin 80 mg qhs #Acute hepatitis C infection #Decompensated cirrhosis #MASLD, cardiac cirrhosis #Positive hep C antibody #Hyperbilirubinemia Pt reported no prior history of cirrhosis, hepatitis panel shows positive hep C antibody, possible past infection, other multifactorial etiology, possible MASLD and underlying cardiac cirrhosis Abdomen US Shows: Cholelithiasis, Abnormal thickening of the gallbladder wall 0.6 cm, consider HIDA scan or MRCP follow-up, Common bile duct 0.7 cm no stones, Cirrhosis, fatty infiltration, Mild ascites HIV negative 05/04/2025 RUQ US showed mild gallbladder wall thickened 0.5 cm Patient does have a fatty liver Less concerning for acute obstructive cause, patient does not have any pain, examination unremarkable HCV viral load of 2.5 million HCV RNA quant and positive HCV RNA PCR - Monitor liver panel - Follow CMP daily - Establish outpatient treatment #Bigeminy, PVCs On telemonitor in and out 05/04/2025 EKG ordered showed similar findings as previous - K and Mag maintain >4.0 and >2.0 respectively #Mild aneurysm dilation abdominal Aorta #Narrow left common iliac artery Patient has aortoiliac stent, does complain of left leg pain on and off, does have underlying cellulitis CT chest abdomen pelvis shows severe narrowing left common iliac, patient does have a aortic iliac stent. Bilateral pedal pulses palpated, no evidence of limb ischemia MONICO (05/01/2025): Right ankle/Brachial index 1.1 and Left ankle/Brachial index 1.1 Plan: - Continue outpatient follow-up with vascular surgery #Cellulitis - resolved Received 2 doses of IV ceftriaxone 1g qday Urinalysis shows contamination, squamous epithelial cells more than 20 - Completed treatment with Keflex (05/02-05/09), and also received 2 days of IV ceftriaxone-total 7 days #BPH - Continue home tamsulosin 0.4 mg qday #Hyperlipidemia - Continue home atorvastatin 80 mg HS Disposition: Telemetry DVT prophylaxis: Heparin subcut GI prophylaxis: none Diet: Cardiac, fluid restriction 1500 cc Lines: PIV CODE STATUS: Full Code Patient plan of care was discussed with the attending physician, Dr. Taylor. Aaliyah Lanier, PGY-2
--- NOTE | 2025-05-12 14:00 | PD.RESPRO ---
Documentation for date of: 05/12/25 Subjective Subjective Interval history: Patient is a 65-year-old male with a past medical history of CHF HFrEF 25 to 30% (03/15/2025), former history of heart disease, cocaine use disorder, and past medical history cigarette use, who presented with a chief complaint of lower swelling and increased shortness of breath. Patient stated he stopped taking his medication for about 2 weeks secondary to increased anxiety in regards to side effects, patient was unable to clearly define concern. Increased shortness of breath upon ambulation, requiring patient to sleep in a sitting position, and shortness of breath wakes him up from sleep. Increased shortness of breath with ambulation. Patient describes symptoms related to orthopnea and paroxysmal nocturnal dyspnea. Denied palpitations. Patient denied chest pain or syncopal event. Patient denied recent history of sick contacts. Denied pyrexia at home. Denied past history of COPD. Denied worsening cough. Patient decided to seek further medical attention from the ER as swelling increased into lower quadrant abdomen and increased scrotal edema noted prior to admission. 05/10/2025: No overnight events for patient. Patient denied chest pain or shortness of breath. Resolved lower peripheral edema. -START Entresto half (1/2) tablet bid for GDMT and monitor renal function. Paitent pending SNF. Follow up on repeat BNP 05/11/2025: Robyn overnight events. Patinet is pending SNF. Patient is ambulating with help. Patinet denied chest pain, dyspnea, and lower pedal edema resolved. Entresto 1 tablet BID and Bumex 1 mg PO qday. Continue metoprolol succinate 25 mg PO Qday 05/12/2025: Kikanet examined at bedside. NO overnight events. Paitent pending SNF. Given soft blood pressure reduce back to Entresto 1/2 tablet BID. Continue to monitor BP. SNF pending. Exam Vital Signs Temp Pulse Resp BP Pulse Ox O2 Del Method 97.0 F 101 H 16 107/58 L 94 L Room Air 05/12/25 08:15 05/12/25 12:00 05/12/25 08:15 05/12/25 09:52 05/12/25 08:15 05/12/25 08:15 Narrative Exam General Appearance: Alert & Oriented X3, well-nourished male who is lying in bed in no acute distress HEENT: Skull symmetrical and atraumatic. Conjunctivae pink and moist. Pupils equal, round, reactive to light and accommodation (PERRL). External ear without lesion or discharge. Straight, nares patient, mucosa pink, no discharge. Cardio: Normal Rate and Rhythm with S1 and S2 heart sounds, distant heart sounds. Heart sounds difficult to appreciate, possible holosystolic murmur and bruit on carotid auscultation. Peripheral edema resolved. No scrotal edema noted. Lungs: Symmetric with good expansion. Chest and back non-tender. Decreased vesicular breath sounds Abdomen: Non-tender, Non-distended, Normal Reactive Bowel Sounds Neuro: Alert, cooperative, oriented to person, place, and time. Speech clear. CN grossly intact. Upper motor strength 5/5 and Lower motor strength 5/5. Sensation Objective Labs 05/10/25 04:34 05/12/25 05:11 Labs: Laboratory Results - last 24 hr 05/12/25 05:11 Sodium 143 Potassium 4.8 Chloride 106 Carbon Dioxide 28.0 Anion Gap 9 BUN 28 H Creatinine 0.9 Estim Creat Clear Calc 102.5 eGFR > 60 BUN/Creatinine Ratio 31 H Glucose 104 Calculated Osmolality 290 Calcium 9.0 Corrected Calcium 9.2 Magnesium 2.0 Total Bilirubin 0.9 ALT 86 H Alkaline Phosphatase 156 H Total Protein 6.8 Albumin 3.8 Globulin 3.0 Albumin/Globulin Ratio 1.3 ABG Interpretation ABG results: 05/01/25 00:59 ABG pH 7.38 ABG pCO2 41 ABG pO2 72 L ABG HCO3 24 ABG O2 Saturation 95 ABG Base Excess -1 Quality Measures Quality Measures VTE prophylaxis Assessment & Plan Assessment Current Active Medications: Generic Name Dose Route Start Last Admin Trade Name Freq PRN Reason Stop Dose Admin Acetaminophen 650 mg 05/01/25 03:42 05/04/25 08:57 Acetaminophen 325 Mg Tablet PO 05/31/25 03:41 650 mg Q6H PRN Administration PAIN OR FEVER > 101 Ascorbic Acid 500 mg 05/02/25 14:30 05/12/25 09:50 Ascorbic Acid 250 Mg Tablet PO 06/01/25 14:29 500 mg BID CHYNA Administration Aspirin 81 mg 05/01/25 09:00 05/12/25 09:50 Aspirin Ec 81 Mg Tabec PO 05/31/25 08:59 81 mg QDAY CHYNA Administration Atorvastatin Calcium 80 mg 05/02/25 21:00 05/11/25 20:41 Atorvastatin Calcium 20 Mg Tablet PO 06/01/25 20:59 80 mg HS CHYNA Administration Bumetanide 1 mg 05/12/25 09:00 05/12/25 09:51 Bumetanide 0.5 Mg Tablet PO 06/11/25 08:59 1 mg DAILY CHYNA Administration Heparin Sodium (Porcine) 5,000 unit 05/01/25 06:00 05/12/25 05:14 Heparin Sod Inj 5000 Unit/Ml Vial SC 05/15/25 05:59 5,000 unit Q8HR CHYNA Administration Melatonin 6 mg 05/03/25 20:00 05/11/25 20:41 Melatonin 3 Mg Tablet PO 06/02/25 19:59 6 mg DAILY@2000 CHYNA Administration Metoprolol Succinate 25 mg 05/09/25 09:00 05/12/25 09:52 Metoprolol Succinate Xl 25 Mg Tabcr PO 06/08/25 08:59 25 mg QDAY CHYNA Administration Multivitamins 1 tab 05/02/25 14:30 05/12/25 09:52 Multivitamins Tablet PO 06/01/25 14:29 1 tab QDAY CHYNA Administration Ondansetron HCl 4 mg 05/01/25 03:42 Ondansetron Inj 2 Mg/Ml Inj 2 Ml IV 05/31/25 03:41 Q6H PRN NAUSEA OR VOMITING Protocol Sacubitril/Valsartan 1 tab 05/11/25 21:00 05/12/25 09:52 Sacubitril 24 Mg/Valsartan 26 Mg Tablet PO 06/10/25 20:59 1 tab BID CHYNA Administration Sennosides 2 tab 05/01/25 03:42 05/09/25 05:53 Senna Tablet PO 05/31/25 03:41 2 tab BID PRN Administration CONSTIPATION Protocol Tamsulosin HCl 0.4 mg 05/01/25 09:00 05/12/25 09:52 Tamsulosin Hcl 0.4 Mg Capsule PO 05/31/25 08:59 0.4 mg QDAY CHYNA Administration Zinc Sulfate 220 mg 05/02/25 14:30 05/12/25 09:50 Zinc Sulfate 220 Mg Capsule PO 05/16/25 14:29 220 mg QDAY CHYNA Administration Plan The patient is a 65-year-old male with medical history of HFrEF (20-30%), BPH , former user of cocaine (last use 2003), former smoker (30 packs/year quit 2021) who was admitted on 05/01/2025 for acute CHF exacerbation. # Acute on chronic severe systolic & Diastolic Dysfunction CHF exacerbation EF 25-30% (03/15/2025) # Mild to Moderate AV Stenosis # Multifocal atrial tachycardia # Essential hypertension # Hyperlipidemia Etiology: Etiology: Past medical history of CHF in the setting of cardiomyopathy in the setting of past medical history of cocaine use disorder and smoking history vs ischemic heart condition given deep Q waves noted on EKG w/ MAT pattern. 05/12/2025: NET +840 Total Net Balance during hospital visit: -28, 250 ml (05/01/2025-05/10/2025) Dry weight: 102 kg Repeat BNP:1392 (baseline when not in CHF exacerbation) Dx: Echo (03/15/2025): Dilated LV. Severe systolic dysfunction. Severe global hypokinesis. Estimated EF 20-30% %. Grade 2 diastolic dysfunction. Mild RV dilatation. Mild RV systolic dysufnction. Mild to modertae AV stenosis. Low gradient due to low EF. Mean PG 12-14 mm hg but JE aroind 1.1 to 1.2 sq cm which indicates at least moderate stenosis. Mild MAC. Mild MR. Mild TR. Trace AI. Mildly dilated LA volume 40.5 mL/m?. TSH 1.20 BNP 3100. Troponin within normal limits LIpid Panel Triglycerides 67, Cholesterol 127, LDL 81, HDL 33, A1c 5.4% NYHA Class: III ASCVD: High-intensity Statins recommended DRY WEIGHT 102; DRY BNP 1392 (versus 3100 on admission) Plan: -Bumex 1 mg PO QDay -Metoprolol 25 mg PO Qday -Entresto 1/2 tablet PO BID -Aspirin 81 mg PO Qday -Atorvastatin 80 mg PO HS -Work towards GDMT, given EF outpatient Spirnolactone -K>4 and Mg >2 -Fluid Restriction 1500ml and Sodium Restriction 2 g per day -SpO >90%, support PRN Came in with weight of around 120 Kg and now at 102 kg which is mostly close to his dry weight. NET fluid balance on this admission: Total net negative 28 liters -28, 250 ml. Corresponds to 18 to 20 kg weight that he lost. Pending SNF placement. Dc on Bumex 1.0 mg PO qday and Metroprolol xl 25 mg PO qday. Will need GDMT spirnolactone based on renal function and BP #Cirrhosis, Mild Ascites likely secondary to #Hepatitis C hepatitis C given positive Hepatitis Panel & likely LIAO contributing to finding given BMI of 35, history of HLD, and Fatty infiltration findings on CT vs less likely secondary to alcohol use disorder as AST/ALT within normal limits. Hepatitis Panel: Positive for Hep C HCV RNA : 6.40 & [id number] AST 32 ALT 24 Total Bili 1.0/Direct 0.4-->AST 41 ALT 25 Total Bili 1.3 US Abdomen: There is 16.4 cm irregular contour fatty infiltration mild ascites Normal hepatopedal portal venous flow. Patent IVC Child Moran Score 6 points, Class A, Life Expectancy 15-20 years Plan -Hepatitis C positive, patient would benefit from ID consult/referral -Primary Team started patient on Ascorbic Acid -Patient would benefit from biopsy outpatient & follow up outpatient for Hep C #Cellulitis Bilateral erythema likely secondary to venous stasis vs cellulits less likely no pyrexia and no leukocytosis, treating empirically Plan Cephalexin 1000 PO TID (05/02/2025-05/09/2025) Blood cultures negative 48 hours #Incidental Left Common Iliac artery, narrow MONICO (05/01/2025): Right ankle/Brachial index 1.1 and Left ankle/Brachial index 1.1 Plan -Consider outpatient exercise induced MONICO #Bilateral Parenchyal scar formation #BPH -Resume home dose of Tamsulosin #Incidental finding Mild aneurysm Dilation abdominal Aorta -Follow up outpatient Health Maintenance: Disp: Pt is currently admitted to floors for further management of CHF , please have patient follow up with cardiology, Dr. Mcclelland, within one week of discharge FEN: Cardiac Diet, Fluid Restriction 1500 ml DVT: on subQ heparin Q8HRs Code: Full code Attending Provider Attestation/Addendum I have personally seen and examined the patient separately on the above date of service and discussed the plan of care with the resident. I reviewed the resident Dr. Sommer Montgomery consultation progress note and agree with the resident findings and plan in the note above and have also edited the documentation to reflect my findings and plan. Ernie Mcclelland M.D. Interventional Cardiology
--- NOTE | 2025-05-12 14:05 | PC.NURSE ---
Patient up ambulating around the nurse's station using a walker with [employer]. Tolerating well
[2025-05-12] MEDS: ATORVASTATIN CALCIUM 20 MG TABLET 80 MG PO (20:57)
[2025-05-12] MEDS: SACUBITRIL 24 MG/VALSARTAN 26 MG TABLET 0.5 TAB PO (20:57)
[2025-05-12] MEDS: MELATONIN 3 MG TABLET 6 MG PO (20:57)
[2025-05-13] VITALS: BP 111/75; PULSE 78; PULSE 84; RESP 17; TEMP 36.1; O2SAT 96
[2025-05-13 04:00] VITALS: BP 100/70; PULSE 80; RESP 17; TEMP 36.2; O2SAT 94
[2025-05-13] MEDS: HEPARIN SOD INJ 5000 UNIT/ML VIAL SC (05:16)
--- NOTE | 2025-05-13 07:18 | PC.SS ---
SS follow up: [facility] transport reference number: [id number]. Pending ETA.
[2025-05-13 08:00] VITALS: BP 137/76; PULSE 85; RESP 14; TEMP 36.1; O2SAT 94
[2025-05-13 08:40] VITALS: BP 137/76; PULSE 85
[2025-05-13] MEDS: METOPROLOL SUCCINATE XL 25 MG TABCR PO (08:40)
[2025-05-13] MEDS: ASCORBIC ACID 250 MG TABLET 500 MG PO (08:40)
[2025-05-13] MEDS: ZINC SULFATE 220 MG CAPSULE PO (08:40)
[2025-05-13] MEDS: BUMETANIDE 0.5 MG TABLET 1 MG PO (08:40)
[2025-05-13] MEDS: ASPIRIN EC 81 MG TABEC PO (08:40)
[2025-05-13] MEDS: SACUBITRIL 24 MG/VALSARTAN 26 MG TABLET 0.5 TAB PO (08:41)
[2025-05-13] MEDS: TAMSULOSIN HCL 0.4 MG CAPSULE PO (08:41)
[2025-05-13] MEDS: MULTIVITAMINS TABLET 1 TAB PO (08:41)
--- NOTE | 2025-05-13 09:06 | PC.SS ---
Follow up note: SS has informed Connie Mcgill and Connie Sanchez transportation has been arranged for 10am to [facility]. Bedside nurse, Karin is aware.
--- NOTE | 2025-05-13 10:04 | PC.SS ---
Addendum entered by Genna Pozo 05/13/25 11:06: SS received call from Yanet from [facility] and transport time is 11:30 to [facility]. Pt is aware and has been notified by [facility] on his phone. Bedside nurse, Karin is aware. Connie nunes [facility] is aware. Original Note: SS called Katharina from [facility] [phone] and explained transportation has been arranged since this morning. SS has requested [facility]. Per Katharina transportation has not been assigned yet. Per Katharina, she will inform the routing team but [facility] is not guaranteed.
--- NOTE | 2025-05-13 10:57 | PD.RESPRO ---
Documentation for date of: 05/13/25 Subjective Subjective Interval history: Patient is a 65-year-old male with a past medical history of CHF HFrEF 25 to 30% (03/15/2025), former history of heart disease, cocaine use disorder, and past medical history cigarette use, who presented with a chief complaint of lower swelling and increased shortness of breath. Patient stated he stopped taking his medication for about 2 weeks secondary to increased anxiety in regards to side effects, patient was unable to clearly define concern. Increased shortness of breath upon ambulation, requiring patient to sleep in a sitting position, and shortness of breath wakes him up from sleep. Increased shortness of breath with ambulation. Patient describes symptoms related to orthopnea and paroxysmal nocturnal dyspnea. Denied palpitations. Patient denied chest pain or syncopal event. Patient denied recent history of sick contacts. Denied pyrexia at home. Denied past history of COPD. Denied worsening cough. Patient decided to seek further medical attention from the ER as swelling increased into lower quadrant abdomen and increased scrotal edema noted prior to admission. 05/12/2025: Patinet examined at bedside. NO overnight events. Paitent pending SNF. Given soft blood pressure reduce back to Entresto 1/2 tablet BID. Continue to monitor BP. SNF pending. 05/13/2025: Patient exmained at bedside. Trace peripheral edema noted. Paitnet denied chest pain or shortness of breath. Continues to ambulate on his own. Patient penidng SNF. No changes to GDMT. Exam Vital Signs Temp Pulse Resp BP Pulse Ox O2 Del Method 97.0 F 85 14 137/76 H 94 L Room Air 05/13/25 08:00 05/13/25 08:40 05/13/25 08:00 05/13/25 08:40 05/13/25 08:00 05/13/25 08:00 Narrative Exam General Appearance: Alert & Oriented X3, well-nourished male who is lying in bed in no acute distress HEENT: Skull symmetrical and atraumatic. Conjunctivae pink and moist. Pupils equal, round, reactive to light and accommodation (PERRL). External ear without lesion or discharge. Straight, nares patient, mucosa pink, no discharge. Cardio: Normal Rate and Rhythm with S1 and S2 heart sounds, distant heart sounds. Heart sounds difficult to appreciate, possible holosystolic murmur and bruit on carotid auscultation. Peripheral edema resolved. No scrotal edema noted. Lungs: Symmetric with good expansion. Chest and back non-tender. Decreased vesicular breath sounds Abdomen: Non-tender, Non-distended, Normal Reactive Bowel Sounds Neuro: Alert, cooperative, oriented to person, place, and time. Speech clear. CN grossly intact. Upper motor strength 5/5 and Lower motor strength 5/5. Sensation Objective Labs 05/10/25 04:34 05/12/25 05:11 ABG Interpretation ABG results: 05/01/25 00:59 ABG pH 7.38 ABG pCO2 41 ABG pO2 72 L ABG HCO3 24 ABG O2 Saturation 95 ABG Base Excess -1 Quality Measures Quality Measures VTE prophylaxis Assessment & Plan Assessment Current Active Medications: Generic Name Dose Route Start Last Admin Trade Name Freq PRN Reason Stop Dose Admin Acetaminophen 650 mg 05/01/25 03:42 05/04/25 08:57 Acetaminophen 325 Mg Tablet PO 05/31/25 03:41 650 mg Q6H PRN Administration PAIN OR FEVER > 101 Ascorbic Acid 500 mg 05/02/25 14:30 05/13/25 08:40 Ascorbic Acid 250 Mg Tablet PO 06/01/25 14:29 500 mg BID CHYNA Administration Aspirin 81 mg 05/01/25 09:00 05/13/25 08:40 Aspirin Ec 81 Mg Tabec PO 05/31/25 08:59 81 mg QDAY CHYNA Administration Atorvastatin Calcium 80 mg 05/02/25 21:00 05/12/25 20:57 Atorvastatin Calcium 20 Mg Tablet PO 06/01/25 20:59 80 mg HS CHYNA Administration Bumetanide 1 mg 05/12/25 09:00 05/13/25 08:40 Bumetanide 0.5 Mg Tablet PO 06/11/25 08:59 1 mg DAILY CHYNA Administration Heparin Sodium (Porcine) 5,000 unit 05/01/25 06:00 05/13/25 05:16 Heparin Sod Inj 5000 Unit/Ml Vial SC 05/15/25 05:59 5,000 unit Q8HR CHYNA Administration Melatonin 6 mg 05/03/25 20:00 05/12/25 20:57 Melatonin 3 Mg Tablet PO 06/02/25 19:59 6 mg DAILY@2000 CHYNA Administration Metoprolol Succinate 25 mg 05/09/25 09:00 05/13/25 08:40 Metoprolol Succinate Xl 25 Mg Tabcr PO 06/08/25 08:59 25 mg QDAY CHYNA Administration Multivitamins 1 tab 05/02/25 14:30 05/13/25 08:41 Multivitamins Tablet PO 06/01/25 14:29 1 tab QDAY CHYNA Administration Ondansetron HCl 4 mg 05/01/25 03:42 Ondansetron Inj 2 Mg/Ml Inj 2 Ml IV 05/31/25 03:41 Q6H PRN NAUSEA OR VOMITING Protocol Sacubitril/Valsartan 0.5 tab 05/12/25 21:00 05/13/25 08:41 Sacubitril 24 Mg/Valsartan 26 Mg Tablet PO 06/11/25 20:59 0.5 tab BID CHYNA Administration Sennosides 2 tab 05/01/25 03:42 05/09/25 05:53 Senna Tablet PO 05/31/25 03:41 2 tab BID PRN Administration CONSTIPATION Protocol Tamsulosin HCl 0.4 mg 05/01/25 09:00 05/13/25 08:41 Tamsulosin Hcl 0.4 Mg Capsule PO 05/31/25 08:59 0.4 mg QDAY CHYNA Administration Zinc Sulfate 220 mg 05/02/25 14:30 05/13/25 08:40 Zinc Sulfate 220 Mg Capsule PO 05/16/25 14:29 220 mg QDAY CHYNA Administration Plan The patient is a 65-year-old male with medical history of HFrEF (20-30%), BPH , former user of cocaine (last use 2003), former smoker (30 packs/year quit 2021) who was admitted on 05/01/2025 for acute CHF exacerbation. # Acute on chronic severe systolic & Diastolic Dysfunction CHF exacerbation EF 25-30% (03/15/2025) # Mild to Moderate AV Stenosis # Multifocal atrial tachycardia # Essential hypertension # Hyperlipidemia Etiology: Etiology: Past medical history of CHF in the setting of cardiomyopathy in the setting of past medical history of cocaine use disorder and smoking history vs ischemic heart condition given deep Q waves noted on EKG w/ MAT pattern. 05/12/2025: NET +840 Total Net Balance during hospital visit: -28, 250 ml (05/01/2025-05/10/2025) Dry weight: 102 kg Repeat BNP:1392 (baseline when not in CHF exacerbation) Dx: Echo (03/15/2025): Dilated LV. Severe systolic dysfunction. Severe global hypokinesis. Estimated EF 20-30% %. Grade 2 diastolic dysfunction. Mild RV dilatation. Mild RV systolic dysufnction. Mild to modertae AV stenosis. Low gradient due to low EF. Mean PG 12-14 mm hg but JE aroind 1.1 to 1.2 sq cm which indicates at least moderate stenosis. Mild MAC. Mild MR. Mild TR. Trace AI. Mildly dilated LA volume 40.5 mL/m?. TSH 1.20 BNP 3100. Troponin within normal limits LIpid Panel Triglycerides 67, Cholesterol 127, LDL 81, HDL 33, A1c 5.4% NYHA Class: III ASCVD: High-intensity Statins recommended DRY WEIGHT 102; DRY BNP 1392 (versus 3100 on admission) Plan: -Bumex 1 mg PO QDay -Metoprolol 25 mg PO Qday -Entresto 1/2 tablet PO BID -Aspirin 81 mg PO Qday -Atorvastatin 80 mg PO HS -Work towards GDMT, given EF outpatient Spirnolactone based on renal function and BP -upon discharge please continue GDMT, spirnolactone outpatient. -K>4 and Mg >2 -Fluid Restriction 1500ml and Sodium Restriction 2 g per day -SpO >90%, support PRN Came in with weight of around 120 Kg and now at 102 kg which is mostly close to his dry weight. NET fluid balance on this admission: Total net negative 28 liters -28, 250 ml. Corresponds to 18 to 20 kg weight that he lost. Pending SNF placement. Dc on Bumex 1.0 mg PO qday and Metroprolol xl 25 mg PO qday. Will need GDMT spirnolactone based on renal function and BP #Cirrhosis, Mild Ascites likely secondary to #Hepatitis C hepatitis C given positive Hepatitis Panel & likely LIAO contributing to finding given BMI of 35, history of HLD, and Fatty infiltration findings on CT vs less likely secondary to alcohol use disorder as AST/ALT within normal limits. Hepatitis Panel: Positive for Hep C HCV RNA : 6.40 & [id number] AST 32 ALT 24 Total Bili 1.0/Direct 0.4-->AST 41 ALT 25 Total Bili 1.3 US Abdomen: There is 16.4 cm irregular contour fatty infiltration mild ascites Normal hepatopedal portal venous flow. Patent IVC Child Moran Score 6 points, Class A, Life Expectancy 15-20 years Plan -Hepatitis C positive, patient would benefit from ID consult/referral -Primary Team started patient on Ascorbic Acid -Patient would benefit from biopsy outpatient & follow up outpatient for Hep C #Cellulitis Bilateral erythema likely secondary to venous stasis vs cellulits less likely no pyrexia and no leukocytosis, treating empirically Plan Cephalexin 1000 PO TID (05/02/2025-05/09/2025) Blood cultures negative 48 hours #Incidental Left Common Iliac artery, narrow MONICO (05/01/2025): Right ankle/Brachial index 1.1 and Left ankle/Brachial index 1.1 Plan -Consider outpatient exercise induced MONICO #Bilateral Parenchyal scar formation #BPH -Resume home dose of Tamsulosin #Incidental finding Mild aneurysm Dilation abdominal Aorta -Follow up outpatient Health Maintenance: Disp: Pt is currently admitted to floors for further management of CHF , please have patient follow up with cardiology, Dr. Mcclelland, within one week of discharge FEN: Cardiac Diet, Fluid Restriction 1500 ml DVT: on subQ heparin Q8HRs Code: Full code Attending Provider Attestation/Addendum I have personally seen and examined the patient separately on the above date of service and discussed the plan of care with the resident. I reviewed the resident Dr. Sommer Montgomery consultation progress note and agree with the resident findings and plan in the note above and have also edited the documentation to reflect my findings and plan. Ernie Mcclelland M.D. Interventional Cardiology
--- NOTE | 2025-05-13 11:50 | PC.NURSE ---
CALLED REPORT TO JUAN A AT [facility].
--- NOTE | 2025-05-13 16:00 | ESDS_ITS ---
Planned Discharge Date 05/13/25 DS: Providers Provider Date of admission: 05/01/25 03:42 Primary care physician: Physician No Primary/Family Admitting Provider: Misael Mclaughlin MD Attending Provider on Admission: Leila Taylor MD Consults: 05/01/25 03:42 Referral Physical Therapy Routine Comment: Physician Instructions: 05/01/25 12:08 Consult to Cardiology Routine Comment: CHF Exacerbation Consulting Provider: Ernie Mcclelland 05/02/25 00:12 Referral Nutritional Services Routine Comment: Referral Wound Care Routine Comment: 05/02/25 12:25 Referral OP Wound Healing Dept Routine Comment: Instructions: buttocks stage 2 Attending Provider on DC: Aaliyah Lanier MD Discharging Provider: Aaliyah Lanier MD DS: Diagnosis Problem List Completed Was Problem List Reviewed/Reconciled?: Yes Hospital Course Hospital Course Hospital course: Hospital course: Mr. King is a 65-year-old male with past medical history of heart failure with reduced ejection fraction EF 20-30%, combined systolic and diastolic heart failure, mild to moderate AV stenosis, benign prostate hypertrophy, cocaine use and former smoker with 30 pack years who presented to [facility] emergency department on May 01, 2025 with a chief complaint of shortness of breath and bilateral lower extremity edema. Patient had stopped taking his Lasix for the last 2 weeks, was admitted for acute decompensated heart failure, patient was started on IV diuretics, cardiology was consulted, GDMT was held, over the course of hospitalization patient was diuresed extensively, patient is -23.6 L, weight 120.304. Patient had new finding of cirrhosis, workup was significant for positive hep C antibody, on further investigation patient has a positive viral load of 2.5 million HCVRNA quant and positive HCV RNA PCR. Patient also has underlying fatty liver changes. Patient was informed of findings, patient denies any unprotected sexual intercourse or IV drug use. Otherwise patient's swelling and dyspnea improved remarkably with the progression of hospital course. Patient was also given p.o. Keflex for the duration of his hospitalization for suspected underlying cellulitis, further plan is to discharge patient to senior care facility on Bumex 1.5 mg p.o. twice daily, metoprolol succinate 25 mg daily. Patient to follow-up outpatient with cardiology and optimize regimen for GDMT, patient to follow outpatient with primary care physician to start treatment for hepatitis C infection. Patient to follow-up outpatient with wound care for groin and buttock wound. Patient is stable for discharge and patient responded well to hospital treatment. Patient to follow-up outpatient for further workup regarding narrow left common iliac artery and mild aneurysmal dilation abdominal aorta. Discharge Recommendations: -Follow up with PCP within 1 week of discharge -Get a liver panel within 1 week of discharge with your primary care -Please discuss with your PCP regarding vascular surgery referral for narrow left common iliac artery -Please discuss with your PCP regarding Hepatitis C -Start aspirin 81 mg once a day -Start atorvastatin 80 mg once nightly -Start Bumex 1 mg once a day -Start Entresto 24-26 mg twice a day -Start metoprolol succinate 25 mg once a day -Start multivitamin tablets once daily -Start zinc sulfate 220 mg once daily for 2 weeks -Follow up with your [facility] within 1 week of discharge -Start spironolactone and dapagliflozin outpatient at discretion of Cardiology -Return to the ED or call EMS if symptoms return and/or worsen. 1) Follow up at [facility] for skin breakdown to your groin and buttocks. [address] [place] [address]. Call [phone] for appointment. 2) Wound care to groin and buttocks, shower daily. Apply over the counter zinc paste to groin and buttocks at least twice a day. Goal to keep skin clean and dry. -Repostoning yourself ever 15/20 minutes while sitting and ever 2 hours while laying down to allow blood cirulation to skin. 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 Mohan. Aaliyah Lanier, PGY-2 Time Spent with Patient Time attestation: Total time spent providing and/or coordinating discharge services: Time spent: Greater than 30 minutes Exam Vital Signs Temp Pulse Resp BP Pulse Ox O2 Del Method 97.0 F 85 14 137/76 H 94 L Room Air 05/13/25 08:00 05/13/25 08:40 05/13/25 08:00 05/13/25 08:40 05/13/25 08:00 05/13/25 08:00 Narrative Exam GENERAL: Awake, alert and oriented. No acute distress. HEENT: Normocephalic, atraumatic and nontender.? Pupils are equal and reactive to light and accommodation.? Oral mucosa moist. NECK: Supple without adenopathy. Traquea midline. Nontender, carotid pulse 2+ bilaterally without bruits, no JVD.? CHEST: Heart rate and rythm normal, no murmurs, gallops auscultated. S1 & 2 normal insensity. Nontender on palpation, no deformity and no crepitus. LUNGS: Lung sounds are clear.? No wheezing, rales or ronchi.? No intercostal subcostal retraction. Room air ABDOMEN: Soft, symmetric, nontender, no guarding or rebound tenderness. No abnormal masses palpated.? No pulsatile masses or bruits.? Bowel sounds are normoactive in all 4 quadrants. EXTREMITIES: Nontender.? trace pitting edema.? No cyanosis.? Venous stasis dermatitis SKIN: No rashes noted. NEURO:? Cranial nerves intact.? There is no focalization.? GCS is 15. Discharge Plan Plan Patient Disposition: Xfer [facility] (SNF) Patient condition on transfer: Stable Care Plan Goals: Discharge Recommendations: -Follow up with PCP within 1 week of discharge -Get a liver panel within 1 week of discharge with your primary care -Please discuss with your PCP regarding vascular surgery referral for narrow left common iliac artery -Please discuss with your PCP regarding Hepatitis C -Start aspirin 81 mg once a day -Start atorvastatin 80 mg once nightly -Start Bumex 1 mg once a day -Start Entresto 24-26 mg twice a day -Start metoprolol succinate 25 mg once a day -Start multivitamin tablets once daily -Start zinc sulfate 220 mg once daily for 2 weeks -Follow up with your [facility] within 1 week of discharge -Start spironolactone and dapagliflozin outpatient at discretion of Cardiology -Return to the ED or call EMS if symptoms return and/or worsen. 1) Follow up at [facility] for skin breakdown to your groin and buttocks. [address] [facility]. Call [phone] for appointment. 2) Wound care to groin and buttocks, shower daily. Apply over the counter zinc paste to groin and buttocks at least twice a day. Goal to keep skin clean and dry. -Repostoning yourself ever 15/20 minutes while sitting and ever 2 hours while laying down to allow blood cirulation to skin. Prescriptions/Referrals Prescriptions/Med Rec: New metoprolol succinate [Toprol XL] 25 mg tablet extended release 24 hr 25 mg PO QDAY Qty: 30 0RF aspirin [Ecotrin Low Strength] 81 mg Tablet,Delayed Release (Dr/Ec) 81 mg PO QDAY 30 Days Qty: 30 0RF atorvastatin 20 mg Tablet 80 mg PO HS 30 Days Qty: 120 0RF multivitamin with folic acid [Tab-A-Amara] 400 mcg Tablet 1 tab PO QDAY Qty: 0 0RF zinc sulfate 50 mg zinc (220 mg) Capsule 220 mg PO QDAY Qty: 0 0RF Entresto 24-26 mg Tablet 1 tab PO BID 30 Days Qty: 0 0RF bumetanide 1 mg tablet 1 mg PO QDAY 30 Days Qty: 30 0RF Continued tamsulosin 0.4 mg capsule 0.4 mg PO DAILY Patient Comments: take 1 capsule by mouth once daily Discontinued furosemide 40 mg tablet 40 mg PO QDAY Qty: 30 3RF carvedilol 3.125 mg Tablet 3.125 mg PO BIDWM 30 Days Qty: 60 3RF Referrals: Ernie Mcclelland MD [Physician] - No Primary/Family,Physician [Primary Care Provider] - Dennis Sargent MD [Resident] - Outpatient Orders (i.e. Home Health, Labs, Imaging): DME: Walker-Front Wheel (Routine) Location: None Selected Ordered By: Aaliyah Lanier Patient/Caregiver Discharge Instructions Discharge Activity: activity as tolerated Other Discharge Activity Instructions:: Front wheel walker has been ordered Education Materials: Pressure Injury Dc, Changing Dressing Dc, Bowel Movements and Diaper Rash Print Language: Yi Stand Alone Forms: Nidia Award Info., Patient Portal Info Letter Discharge Order Discharge Orders: Discharge (Routine); Ordered 05/13/25 Ordered By: Aaliyah Lanier Quality Discharge Quality Measures VTE prophylaxis Attestestation MD Attestation Face to face evaluation was performed by me. I have personally seen and examined the patient. I discussed the assessment and plan with the entire medicine team. I reviewed available medical records, imaging studies, laboratory results. I ag ree with the above subjective data, objective findings, assessment and plan except as corrected by me or noted below Acute on chronic left ventricular heart failure exacerbation, decompensated Hyperlipidemia BPH Cardiology was on board, patient is stable for discharge?follow-up with cardiology as well as primary care physician after discharge More than > 30 minutes spent on the encounter.
--- NOTE | 2025-05-17 10:21 | PC.SS ---
SS received call from Connie at [facility] who is requesting SS to send patient's d/c orders again to fax# [phone] or [phone].
== END 2025-05-13 11:42 | disposition skilled nursing facility (03) | DRG 194 ==
LOC: SERX 05-01 04:08 → SERHOLD 05-01 04:31 → S3NX 05-01 06:44
PROVIDERS: Student in an Organized Health Care Education/Training Program; Admitting Provider Student in an Organized Health Care Education/Training Program; Emergency Provider Emergency Medicine; Visit Provider Internal Medicine
DX: I11.0 Hypertensive heart disease with heart failure (principal); I50.43 Acute on chronic combined systolic (congestive) and diastolic (congestive) heart failure; N40.0 Benign prostatic hyperplasia without lower urinary tract symptoms; I42.9 Cardiomyopathy, unspecified; Z87.891 Personal history of nicotine dependence; I73.9 Peripheral vascular disease, unspecified; K74.60 Unspecified cirrhosis of liver; E78.5 Hyperlipidemia, unspecified; N50.89 Other specified disorders of the male genital organs; I35.0 Nonrheumatic aortic (valve) stenosis; E87.3 Alkalosis; G47.00 Insomnia, unspecified; I42.0 Dilated cardiomyopathy; B17.10 Acute hepatitis C without hepatic coma; I49.3 Ventricular premature depolarization; K75.81 Nonalcoholic steatohepatitis (NASH); L03.116 Cellulitis of left lower limb; N39.0 Urinary tract infection, site not specified; K80.20 Calculus of gallbladder without cholecystitis without obstruction; R18.8 Other ascites; Z79.82 Long term (current) use of aspirin; Z79.899 Other long term (current) drug therapy; T50.906A Underdosing of unspecified drugs, medicaments and biological substances, initial encounter; Z91.128 Patient's intentional underdosing of medication regimen for other reason
CPT/HCPCS: 36415; 36600; 71045; 71250; 74176; 76700; 76705; 80048; 80053; 80061; 80074; 80076; 80307; 81001; 82150; 82248; 82803; 83036; 83540; 83550; 83605; 83690; 83735; 83880; 84100; 84145; 84439; 84443; 84484; 85025; 85610; 85652; 85730; 86140; 86703; 87040; 87081; 87086; 87400; 87522; 87811; 93005; 93225; 93925; 93970; 96365; 96367; 96372; 96375; 97162; 99291; A4314; J0696; J1644; J1938; J2270; J3475; J3490; J7050; A9270

== ENCOUNTER 2025-06-24 07:50 | Inpatient (IN) | payer MEDICAID, SELFPAY ==
[2025-06-24] VITALS (75 sets, daily range): BP systolic 79–150; BP diastolic 43–92; PULSE 86–140; RESP 14–34; TEMP 36.5–36.8; O2SAT 70–100; BMI 22.7; BMI 29.4
--- NOTE | 2025-06-24 08:04 | EDNOTE_ITS ---
ED Abdominal Pain RME/HPI General Chief Complaint: Abdominal Pain Stated complaint: ABDOMINAL PAIN Time seen by provider: 06/24/25 07:55 Arrival date/time: 06/24/25 07:50 Limitations: no limitations RME / HPI RME / HPI narrative: DR. SHEN MAIN ED EVALUATION: 65-year-old male with past medical history of heart failure with reduced ejection fraction (EF 20?30%), combined systolic and diastolic heart failure, mild to moderate aortic valve stenosis, BPH, hypercholesterolemia, hypertension, hepatitis C, abdominal aortic aneurysm, arrhythmia, and history of cocaine use and 30 pack-year smoking (quit 20 years ago) presents to the Emergency Department BIB from home with complaint of abdominal pain rated 4/10, which started 2 days ago and worsened today. He reports black stools for the past 2 d ays. Last bowel movement was today. Patient reports nausea but denies vomiting. Per EMS, BP 123/100, HR 80. Related Data Home Medications ?Medication ?Instructions ?Recorded ?Confirmed tamsulosin 0.4 mg capsule 0.4 mg PO DAILY 03/15/2512/25 Previous Rx's ?Medication ?Instructions ?Recorded metoprolol succinate 25 mg 25 mg PO QDAY #30 tabs 05/25 tablet,extended release 24 hr (Toprol XL) multivitamin with folic acid 400 1 tab PO QDAY #0 tabs 05/10/25 mcg tablet (Tab-A-Amara) zinc sulfate 50 mg zinc (220 mg) 220 mg (4.4 x 50 mg z inc (220 mg)) 05/10/25 capsule PO QDAY #0 caps Allergies Allergy/AdvReac Type Severity Reaction Status Date / Time doxycycline Allergy Intermediate Dizziness Verified 03/16/25 11:02 Review of Systems Review of Systems Systems Reviewed: All systems reviewed, normal except as documented Past Medical History Past Medical History CARDIAC: Positive Peripheral Vascular Disease, Congestive Heart Failure, Edema and Hypertension RESPIRATORY: Positive Pneumonia GASTROINTESTINAL: Positive Obesity GENITOURINARY: Positive Benign Prostatic Hyperplasia PSYCHO/SOCIAL: Positive Recreational Drug Use and Anxiety OTHER HISTORY: Positive Falls Surgical History SURGICAL: Positive Amputation Social History SMOKING STATUS: Never smoker SUBSTANCE USE: crack/cocaine ED Exam General Limitations: Present no limitations General appearance: Present alert, in no apparent distress and other (jaundice and pale; slurred speech) Head Head exam: Present atraumatic, normocephalic and normal inspection Eye Eye exam: Present normal appearance, PERRL and EOMI ENT ENT exam: Present normal exam, normal oropharynx and mucous membranes moist Neck Neck exam: Present normal inspection, full ROM and trachea midline Chest Chest inspection: Present normal inspection and symmetric chest wall rise Respiratory Respiratory exam: Present normal lung sounds bilaterally Cardiovascular Cardiovascular exam: Present regular rate, normal rhythm and normal heart sounds Abdominal Exam Abdominal exam: Present soft and normal bowel sounds Rectal Exam Rectal exam: Present heme (+) stool Extremities Exam Extremities exam: Present full ROM and pedal edema (bilateral 1+ pitting edema) Back Exam Back exam: Present normal inspection and full ROM Neurological Exam Neurological exam: Present alert, oriented X3 and other (slurred speech) Psychiatric Psychiatric exam: Present normal affect and normal mood Skin Skin exam: Present warm, dry, intact, pallor and other (jaundice) Course Quality Measures Possible source: GI tract/intra-abdominal Blood cultures ordered: no Antibiotic ordered: No Pertinent labs: 06/24/25 09:40 Lactic Acid 2.1 H mMol/L (0.4-2.0) Procalcitonin 0.25 ng/ml (0.0-0.49) 0909: Sepsis alert initiated. Orders made at this time are congruent with ED Adult Sepsis Order List. Re-evaluation is to be completed. xx: Fluids started. xx: Sepsis reassessment performed consisting of lab review, vitals, physical exam including auscultation of heart, lungs, and visual evaluation of capillary refills, mucosal membranes and extremities. sepsis Orders Category Date Time Status CT Screening NOW Care 06/24/25 08:30 Active EKG (ED ONLY) *Do not use* NOW Care 06/24/25 08:13 Completed NPO NOW Care 06/24/25 08:30 Active Transfuse,blood/blood products NOW Care 06/24/25 11:53 Active Diet NPO (NOW) Diet 06/24/25 08:[address] angio chest abdomen pelvis Stat Exams 06/24/25 08:29 Completed EKG (ED Only) Stat Exams 06/24/25 08:13 Draft BNP [B-Type Natriuretic Peptide] Stat Lab 06/24/25 08:43 Completed Blood Culture (Lab) Stat Lab 06/24/25 09:40 Received CBC Stat Lab 06/24/25 08:43 Completed CMP [Comprehensive Metabolic Panel] Stat Lab 06/24/25 08:43 Completed Drug Screen,Urine Stat Lab 06/24/25 08:41 Completed Lactate (Lactic Acid) Stat Lab 06/24/25 09:40 Completed Lipase Stat Lab 06/24/25 08:43 Completed PT [Prothrombin Time with INR] Stat Lab 06/24/25 08:43 Completed Procalcitonin Stat Lab 06/24/25 09:40 Completed Troponin I Stat Lab 06/24/25 08:43 Completed Type and Screen Stat Lab 06/24/25 08:43 Results UA, C/S IF [Urinalysis, C/S if Indicated] Stat Lab 06/24/25 08:39 Completed Urine Culture Stat Lab 06/24/25 08:39 Received Midodrine [Proamatine] Med 06/24/25 10:05 Discontinued 5 mg PO X1 STA Norepinephrine/D5W 8mg/250ml [Levophed in D5W 8mg/250ml Med 06/24/25 09:08 Active ] 8 mg in 250 ml IV 0.05 mcg/kg/min Vital Signs Vital signs: Vital Signs Temperature 98.0 F 06/24/25 08:00 Pulse Rate 117 H 06/24/25 08:00 Respiratory Rate 15 06/24/25 08:00 Blood Pressure 109/44 L 06/24/25 08:00 Pulse Oximetry (%) 100 06/24/25 08:00 Oxygen Delivery Method Room Air 06/24/25 08:00 Abdominal Pain MDM MDM Narrative MDM Narrative:: I, Shy Gómez am scribing for and in the presence of Dr. Shen. Patient is a 65-year-old male with medical history notable for hepatitis C, cirrhosis, CHF, valve disease, AAA with an emergency room with concerns for black stools, weakness and abdominal discomfort. 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 Performed rectal exam that showed black tarry stool, that was Hemoccult positive. Labs with evidence of mild leukocytosis white blood cells 11. Patient with microcytic anemia, hemoglobin 8 previously was 14. Patient with a normal anion gap however has a bicarb of 19. BUN elevated 45, creatinine normal. Lactic acid 2.1. Patient with a transaminitis, AST and ALT greater than 100. T. bili normal. Alk phos normal. Patient BNP is 557. Urinalysis with 723 white blood cells, 18 red blood cells 6 frames no bacteria concern the patient has a urinary tract infection. Antibiotics provided. EKG with sinus tach, with frequent PVCs. Per chart review patient has a history of an arrhythmia. CT angio of the chest abdomen pelvis with evidence of severe scarring of the left kidney, infrarenal abdominal aorta is 3.3 cm, also has a small large 11 mm of the lateral margin of the infrarenal abdominal aorta patient also has bilateral iliac artery stents and narrowing significant of the left common iliac artery stent. Given patient with downtrending hemoglobin significant, and patient hypotensive concern that patient has a GI bleed. Provided patient with a unit of blood. Also started him on Levophed. Will consult gastroenterology and ICU. Placed consult to gastroenterology Dr. Alanis. Discussed case with ICU kindly accepted patient for admission. Patient data External records reviewed:: [facility] previous records and EMS form Clinical information provided by:: patient and EMS Social determinants that could affect healthcare access:: substance use Patient has the following chronic illnesses:: heart failure with reduced ejection fraction (EF 20?30%), combined systolic and diastolic heart failure, mild to moderate aortic valve stenosis, BPH, hypercholesterolemia, hypertension, hepatitis C, abdominal aortic aneurysm, arrhythmia, and history of cocaine use and 30 pack-year smoking (quit 20 years ago) How is presenting disease/condition affected by chronic disease/condition?: exacerbated by Evaluation data The following diagnostics were reviewed and interpreted by me:: lab results, radiology exam(s) and EKG tracing(s) Lab and/or radiology exams considered but not ordered:: none Interpretation Summary: My interpretation: EKG performed at 0815 hours, sinus tachycardia, rate 108, normal intervals,PVCs, no cardiac alert Procedure(s): CT angio chest abdomen pelvis Accession Number(s): [id number] cc: Julian Dick MD; Tommie Arthur MD; Roxanne Shen MD~ Examination: CTA chest, with intravenous contrast. CTA abdomen, with intravenous contrast. CTA pelvis, with intravenous contrast. 2-D sagittal and coronal reconstructions. 3-D reconstructions. Date and time of exam: June 24, 2025 1056 hours INDICATIONS: Chest pain shortness of breath abdominal pain today CTDI vol (mgy) 12.3 DLP (MGycm) 1022 Technique: Multiple CTA images, 2.0 mm slice thickness, obtained chest, abdomen, pelvis, with the high-resolution 64 slice scanner. 100 cc Isovue-370 is administered intravenously. Sagittal and coronal 2-D reconstructions are obtained. 3-D reconstructions, angiographic images are obtained. 3-D postprocessing, including vascular maximum intensity projections. Low dose protocols were performed. One or more of the following dose reduction techniques were used; automated exposure control, adjustment of the mA and/or KV according to patient size, use of iterative reconstruction technique. Findings: Thoracic aorta calcification no aneurysmal dilatation or dissection No pulmonary artery emboli No paratracheal tracheobronchial or bronchopulmonary adenopathy No pneumonia or pulmonary edema or pleural disease 5 mm liver cyst No focal liver or splenic lesions No gallstones No pancreatic or adrenal mass Severe scarring left kidney, no hydronephrosis Normal appendix No bowel obstruction No diverticulitis Mild thickening of urinary bladder wall up to 4 mm AP dimension infrarenal abdominal aorta 3.3 cm small bulge, axial image 293, 11 mm, off the lateral margin of the infrarenal aorta Bilateral iliac artery stents Significant narrowing of the left common iliac artery stent axial image 353 Heavy calcification common femoral arteries IMPRESSION: No thoracic aortic aneurysm dilatation or dissection Negative for pulmonary artery emboli Severe scarring left kidney AP dimension infrarenal abdominal aorta 3.3 cm Small bulge 11 mm off the lateral margin of the infrarenal abdominal aorta Bilateral iliac artery stents Significant narrowing of the left common iliac artery stent axial image 353 Consider arterial Doppler lower extremities follow-up Dictated By: Tommie Arthur MD Medications / Prescriptions Medications or Prescriptions considered but not ordered:: none Medication administrations:: Medication Administration History Acetaminophen (Acetaminophen 325 Mg Tablet) 325 mg PO Q6H PRN PRN Reason: Pain (1-3) & Fever >100.4 Stop: 07/24/25 12:53 Norepinephrine/Dextrose (Levophed In D5w 8mg/250ml) 8 mg in 250 mls @ 9.483 mls/hr IV .Q24H PRN; Protocol PRN Reason: PER PROTOCOL Stop: 07/24/25 09:07 Last Titration: 06/24/25 12:40 Dose: 0.07 mcg/kg/min, 13.276 mls/hr Documented By: Titration: 06/24/25 10:55 Dose: 0.09 mcg/kg/min, 17.069 mls/hr Documented By: Titration: 06/24/25 10:50 Dose: 0.09 mcg/kg/min, 17.069 mls/hr Documented By: Titration: 06/24/25 10:45 Dose: 0.07 mcg/kg/min, 13.276 mls/hr Documented By: Titration: 06/24/25 09:30 Dose: 0.05 mcg/kg/min, 9.483 mls/hr Documented By: Admin: 06/24/25 09:25 Dose: 0.05 mcg/kg/min, 9.483 mls/hr Documented By: VG Octreotide Acetate 1,000 mcg/ (Sodium Chloride) 102 mls @ 5.1 mls/hr IV .Q20H CHYNA; Protocol Stop: 06/29/25 12:57 Ceftriaxone Sodium/Dextrose (Rocephin/D5w 1gm Iv Premix) 1 gm in 50 mls @ 100 mls/hr IV QDAY CHYNA Stop: 07/01/25 12:58 Octreotide Acetate 1,000 mcg/ (Sodium Chloride) 102 mls @ 5.1 mls/hr IV .Q20H CHYNA; Protocol Stop: 06/25/25 09:14 Ondansetron HCl (Ondansetron Inj 2 Mg/Ml Inj 2 Ml) 4 mg IVP Q6H PRN; Protocol PRN Reason: NAUSEA OR VOMITING Stop: 07/24/25 12:55 Pantoprazole Sodium (Pantoprazole Inj 40 Mg Vial) 40 mg IVP Q12HR CHYNA Stop: 07/24/25 20:59 Discontinued Medications Midodrine (Midodrine 5 Mg Tablet) 5 mg PO X1 STA Stop: 06/24/25 10:06 Last Admin: 06/24/25 10:16 Dose: 5 mg Documented By: VG Octreotide Acetate (Octreotide Acet Inj 50 Mcg/Ml Vial) 50 mcg IV X1 ONE Stop: 06/24/25 12:58 Pantoprazole Sodium (Pantoprazole Inj 40 Mg Vial) 80 mg IVP X1 ONE Stop: 06/24/25 12:57 see above if any Consultations Consultation(s) initiated? (list below): Yes Consultation #1 (Physician, Specialty, Details): Discussed test HPI, PMHx, lab, radiology results and/or management with automobile body repair chief Dr. Pederson, accepts patient for admitssion. Time: 12:17 Diagnosis Differential diagnosis abdominal pain: other (upper GI bleed, lower GI bleed, abdominal aortic aneurysm expansion or leak, and ischemic bowel) Most likely diagnosis given after review of the tests above:: GI bleed, hemorrhagic shock Admission Indicated Admission indicated?: indicated Admission Request Was there a request for admission?: Yes Admission Attestation Admission request attestation: Discussed case with [] from Hospitalist service regarding admission. Discussed patients ED course, exam findings, labs, and radiology results. The Hospitalist [agrees,declines] to accept the patient for admission. Disposition Plan Disposition Plan: Admit Critical Care Time Critical Care Time Critical Care Time: Yes Total Critical Care Time (min.): 40 Attestation: The high probability of sudden, clinically significant deterioration in the patient?s condition required the highest level of my preparedness to intervene urgently. The services I provided to this patient were to treat and/or prevent clinically significant deterioration. Services included the following: chart data review, reviewing nursing notes and/or old charts, documentation time, trousseau consultant collaboration regarding findings and treatment options, medication orders and management, direct patient care, vital sign assessments and ordering, interpreting and reviewing diagnostic studies and lab tests. Aggregate critical care time includes only time during which I was engaged in work directly related to the patient?s care, as described above, whether at bedside or elsewhere in the Emergency Department. It did not include time spent performing other reported procedures or the services of residents, students, nurses or physician assistants. Discharge Plan Plan Patient Disposition: Admit Acute Care w/in Hospital Problem List Clinical Impression: Hemorrhagic shock, GI (gastrointestinal bleed)
--- NOTE | 2025-06-24 08:13 | EKG_ITS ---
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: : 1960 Requested By: Roxanne Chavez Order Number: [id number] Reading MD: Roxanne Chavez Measurements Intervals Lee Rate: 108 P: 14 MN: 130 QRS: -14 QRSD: 103 T: 144 QT: 346 QTc: 465 Interpretive Statements SINUS TACHYCARDIA WITH FREQUENT VENTRICULAR PREMATURE COMPLEXES ST DEVIATION AND MODERATE T-WAVE ABNORMALITY, CONSIDER LATERAL ISCHEMIA [-0.1+ mV T-WAVE IN I/aVL/V5/V6] Compared to ECG 05/04/2025 10:37:25 T-wave abnormality now present Possible ischemia now present Sinus rhythm no longer present Left ventricular hypertrophy no longer present ST (T wave) deviation no longer present /store/S0/[id number]/ecg/[id number].pdf
--- NOTE | 2025-06-24 08:29 | XR_ITS ---
Examination: CTA chest, with intravenous contrast. CTA abdomen, with intravenous contrast. CTA pelvis, with intravenous contrast. 2-D sagittal and coronal reconstructions. 3-D reconstructions. Date and time of exam: June 24, 2025 1056 hours INDICATIONS: Chest pain shortness of breath abdominal pain today CTDI vol (mgy) 12.3 DLP (MGycm) 1022 Technique: Multiple CTA images, 2.0 mm slice thickness, obtained chest, abdomen, pelvis, with the high-resolution 64 slice scanner. 100 cc Isovue-370 is administered intravenously. Sagittal and coronal 2-D reconstructions are obtained. 3-D reconstructions, angiographic images are obtained. 3-D postprocessing, including vascular maximum intensity projections. Low dose protocols were performed. One or more of the following dose reduction techniques were used; automated exposure control, adjustment of the mA and/or KV according to patient size, use of iterative reconstruction technique. Findings: Thoracic aorta calcification no aneurysmal dilatation or dissection No pulmonary artery emboli No paratracheal tracheobronchial or bronchopulmonary adenopathy No pneumonia or pulmonary edema or pleural disease 5 mm liver cyst No focal liver or splenic lesions No gallstones No pancreatic or adrenal mass Severe scarring left kidney, no hydronephrosis Normal appendix No bowel obstruction No diverticulitis Mild thickening of urinary bladder wall up to 4 mm AP dimension infrarenal abdominal aorta 3.3 cm small bulge, axial image 293, 11 mm, off the lateral margin of the infrarenal aorta Bilateral iliac artery stents Significant narrowing of the left common iliac artery stent axial image 353 Heavy calcification common femoral arteries IMPRESSION: No thoracic aortic aneurysm dilatation or dissection Negative for pulmonary artery emboli Severe scarring left kidney AP dimension infrarenal abdominal aorta 3.3 cm Small bulge 11 mm off the lateral margin of the infrarenal abdominal aorta Bilateral iliac artery stents Significant narrowing of the left common iliac artery stent axial image 353 Consider arterial Doppler lower extremities follow-up
[2025-06-24 09:03] LABS: Collection Type, Urine Clean Catch
[2025-06-24 09:09] LABS: Bilirubin,Urine Negative (Negative); Blood,Urine Trace (Negative); Clarity,Urine Turbid (Clear/Hazy); Color,Urine Yellow (Lt Yel-Yel); Glucose, Urine Negative (Negative); Hyaline Casts,Urine < 1 /hpf (0-1); Ketones,Urine Negative (Negative); Leukocyte Esterase,Urine Positive (Negative); Nitrite,Urine Negative (Negative); PH,Urine 6.0 (5.0-7.0); Protein,Urine 1+ (Neg - Trace); RBC,Urine 18 /hpf (0-3); Specific Gravity,Urine 1.020 (1.001-1.035); Squamous Epithelial Cell,Urine 6 /hpf (0-5); Urobilinogen,Urine Negative mg/dL (0.0-1.0); WBC,Urine 723 /hpf (0-5)
[2025-06-24 09:10] LABS: Culture Indicated,Urine Yes
[2025-06-24 09:13] LABS: Amphetamine/Methamp Scrn,U Negative (Negative); Barbiturate Screen,Urine Negative (Negative); Benzodiazepines Screen,Urine Negative (Negative); Benzoylecgonine Screen, Ur Negative (Negative); Fentanyl Screen,Urine Negative (Negative); Opiate Screen,Urine Negative (Negative); THC Screen,Urine Negative (Negative)
[2025-06-24 09:13] LABS: Basophils # (Auto) 0.1 Thou/mm3 (0.0-0.2); Basophils % (Auto) 1 % (0-2.5); Eosinophils # (Auto) 0.1 Thou/mm3 (0.0-0.5); Eosinophils % (Auto) 1 % (0-10); Hematocrit 27.4 % (41.0-53.0); Immature Granulocytes Auto 0.09 Thou/mm3 (0.00-0.00); Lymphocytes # (Auto) 1.4 Thou/mm3 (1.0-4.8); Lymphocytes % (Auto) 13 % (10-50); Mean Corpuscular HGB Conc 32.1 g/dl (31.0-37.0); Mean Corpuscular Hemoglobin 28.9 pg (25.0-35.0); Mean Corpuscular Volume 90 fL (80-100); Monocytes # (Auto) 0.5 Thou/mm3 (0.0-0.8); Monocytes % (Auto) 5 % (0-12); Neutrophils # (Auto) 8.8 Thou/mm3 (1.8-7.7); Neutrophils % (Auto) 79 % (37-80); Nucleated Red Blood Cell # 0.00 Thou/mm3 (0.00-0.00); Nucleated Red Blood Cell % 0 /100 WBC (0); Platelet Count 214 Thou/mm3 (140-440); RDW Standard Deviation 51.2 fL (35.1-43.9); Red Blood Count 3.04 Miln/mm3 (4.50-5.90); White Blood Count 11.0 Thou/mm3 (3.8-10.6)
[2025-06-24 09:15] LABS: Hemoglobin 8.8 g/dL (13.5-16.0)
[2025-06-24] MEDS: Norepinephrine/D5W 8mg/250ml 8 MG/250 ML BAG 9.483 MG IV (09:25)
[2025-06-24 09:30] LABS: INR 1.3 (0.9-1.3); Prothrombin Time 13.5 Seconds (9.0-12.2)
[2025-06-24 10:00] LABS: B-Type Natriuretic Peptide 557 pg/mL (0-100)
[2025-06-24 10:05] LABS: Lactate (Lactic Acid) 2.1 mMol/L (0.4-2.0)
[2025-06-24 10:07] LABS: Alanine Aminotransferase 101 U/L (10-49); Albumin, Serum 3.1 gm/dL (3.4-4.8); Albumin/Globulin Ratio 1.3 (1.2-2.2); Alkaline Phosphatase 72 U/L (46-116); Anion Gap 11 (7-16); Aspartate Amino Transferase 110 U/L (0-34); BUN/Creatinine Ratio 45 Ratio (12-20); Bilirubin,Total 0.6 mg/dL (0.3-1.2); Blood Urea Nitrogen 45 mg/dL (9-23); Calcium 8.3 mg/dL (8.3-10.6); Calcium (Corrected) 9.0 mg/dL (8.5-10.1); Carbon Dioxide 19.3 mMol/L (20.0-31.0); Chloride 113 mMol/L (98-107); Creatinine (Component) 1.0 mg/dL (0.6-1.3); Estimated Creatinine Clearance 93.3 mL/min (>60); Globulin 2.3 gm/dL (2.3-3.5); Glucose 134 mg/dL (74-106); Lipase 25 U/L (12-53); Osmolality,Calculated 298 (275-295); Potassium 4.8 mMol/L (3.4-5.1); Sodium 143 mMol/L (136-145); Total Protein 5.4 gm/dL (5.7-8.2); Troponin I < 0.020 ng/mL (0.0-0.045); eGFR > 60 See Note
[2025-06-24] MEDS: MIDODRINE 5 MG TABLET PO (10:16)
[2025-06-24 10:34] LABS: Procalcitonin 0.25 ng/ml (0.0-0.49)
[2025-06-24 13:02] LABS: Reflex Lactate? Y
[2025-06-24 13:55] LABS: Lactic Acid, 3 HR 1.9 mMol/L (0.4-2.0)
--- NOTE | 2025-06-24 13:56 | ESHP_ITS ---
Documentation for date of: 06/24/25 HPI History of Present Illness Chief complaint: Dark stools. History of present illness: Mr. King is a 65-year-old male with past medical history of heart failure with reduced ejection fraction, EF 20 to 25% 03/2025, combined systolic and diastolic heart failure, mild to moderate AV stenosis, benign prostate hypertrophy, ?Cirrhosis, hepatitis C infection, infrarenal abdominal aortic aneurysm, peripheral arterial disease status post iliac stent, hyperlipidemia and former cocaine use and chronic smoker with 30 pack years who presented to [facility] emergency department on June 24, 2025 with a chief complaint of dark stools. Patient reported that his symptoms started about 2 days ago, reports having black stools for 1-1/2-day also complaining of abdominal pain at times, patient denies any nausea and vomiting currently, denies any hematemesis. Patient was recently discharged to rehab from [facility] on May 12, 2025 and was recently discharged home, patient has been taking his home medications including aspirin, not on any anticoagulation. Patient follows up outpatient with business operations consultant Dr. Ernie Mcclelland, was recently seen outpatient in his office is on appropriate goal-directed medical therapy, reports adherence to medications outpatient, denies any recent drug use or smoking. Patient in ED noted to be tachycardic and hypotensive, was started on Levophed gtt. by ED physician. ED Course: ED Vitals: On presentation in ED blood pressure 109/44, heart rate 117, respiratory rate 15, temp 98.0, O2 sat 100 on room air ED Labs: ED labs pertinent for WBC 11, RBC 3.04, hemoglobin 8.8, hematocrit 27.4, left shift with neutrophilia noted, INR 1.3, chloride 113, bicarb 19.3, BUN 45, glucose 134, osmolality 298, AST 110, ALT 101, BNP 557, total protein 5.4, albumin 3.1. Urine analysis showed turbid urine with 1+ protein trace blood leukocyte esterase positive, RBC 18, WBC 723, contaminated sample with squamous epithelial cells 6 no bacteria noted in urine. Urine tox cream was negative. ED Imaging: CT chest abdomen pelvis shows negative for aortic aneurysm, pulmonary artery emboli. Shows severe scarring of left kidney, infrarenal abdominal aorta dimension 3.3 cm small bulge of lateral margin of infrarenal abdominal aorta, bilateral iliac artery stents with significant narrowing of left common iliac artery. ED Treatment: Patient was started on Levophed in emergency department and was given 5 mg. ICU team consulted in setting of shock and active GI bleed. Review of Systems Review of Systems Narrative Review of Systems: ROS: -CONSTITUTIONAL: Denies weight loss, fever and chills. -HEENT: Denies changes in vision and hearing. -RESPIRATORY: Denies SOB and cough. -CV: Denies palpitations and Chest Pain. -GI: Positive for abdominal pain and black stools, denies nausea, vomiting,constipation. -: Denies dysuria and urinary frequency. -MSK: Denies myalgia and joint pain. -SKIN: Denies rash and pruritus. -NEUROLOGICAL: Denies headache and syncope. -PSYCHIATRIC: Denies recent changes in mood. Denies anxiety and depression. Past Medical History Past Medical History Comments PMH COMMENT: PMH: Positive for heart failure with reduced ejection fraction, EF 20 to 25% 03/2025, combined systolic and diastolic heart failure, mild to moderate AV stenosis, benign prostate hypertrophy, ?Cirrhosis, hepatitis C infection, infrarenal abdominal aortic aneurysm, peripheral arterial disease status post leg stent, hyperlipidemia and former cocaine use and chronic smoker with 30 pack years 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, 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 Family History: No pertinent family history Home medications: Tylenol as needed, aspirin daily, atorvastatin 80 mg at bedtime, Bumex 1 mg twice daily, Dulcolax suppository 10 mg as needed, Entresto 1 tablet twice daily, Fleet enema as needed, Flomax 0.4 mg daily, metoprolol succinate 25 mg daily, milk of mag as needed, spironolactone 25 mg half tablet daily and daily multivitamin Exam Vital Signs Temp Pulse Resp BP Pulse Ox O2 Del Method 97.7 F 120 H 20 132/66 H 97 Room Air 06/24/25 12:00 06/24/25 12:00 06/24/25 12:00 06/24/25 12:00 06/24/25 12:00 06/24/25 12:00 Narrative Exam Physical Exam General: Awake and in no acute distress. Conversational and non-toxic appearing. HEENT: Normocephalic, atraumatic, mucous membranes moist. Heart: Sinus tachycardia, no murmurs. Lungs: Clear to auscultation with no wheezing or crackles. Abdomen: Soft, nondistended, mild tenderness, positive bowel sounds. ?No guarding or rebound tenderness. Neurologic: Alert and oriented x3, no gross neurological deficit, and patient able to move all 4 extremities. Extremities: Trace edema. Amputated left foot second digit Skin: No rash or ecchymoses. Results: Labs 06/29/25 03:56 06/29/25 03:56 Labs: Short CBC 06/24/25 Range/Units 08:43 WBC 11.0 H (3.8-10.6) Thou/mm3 Hgb 8.8 L (13.5-16.0) g/dL Hct 27.4 L (41.0-53.0) % Plt Count 214 (140-440) Thou/mm3 BMP 06/24/25 08:43 Sodium 143 Potassium 4.8 Chloride 113 H Carbon Dioxide 19.3 L BUN 45 H Creatinine 1.0 Glucose 134 H Calcium 8.3 Cardiac Enzymes 06/24/25 Range/Units 08:43 Troponin I < 0.020 (0.0-0.045) ng/mL Liver Function 06/24/25 Range/Units 08:43 Total Bilirubin 0.6 (0.3-1.2) mg/dL AST 110 H (0-34) U/L ALT 101 H (10-49) U/L Alkaline Phosphatase 72 (46-116) U/L Albumin 3.1 L (3.4-4.8) gm/dL Urine 06/24/25 Range/Units 08:39 Urine Color Yellow (Lt Yel-Yel) Urine Clarity Turbid A (Clear/Hazy) Urine pH 6.0 (5.0-7.0) Ur Specific [place] 1.020 (1.001-1.035) Urine Protein 1+ A (Neg - Trace) Urine Glucose (UA) Negative (Negative) Quality Measures Quality Measures sepsis Current suspected stage: ruled out Possible source: GI tract/intra- abdominal Blood cultures ordered: no Antibiotic ordered: Yes Medications Home Medications and Allergies Home Medications ?Medication ?Instructions ?Recorded ?Confirmed ?Type tamsulosin 0.4 mg capsule 0.4 mg PO DAILY 03/15/25 History Allergies Allergy/AdvReac Type Severity Reaction Status Date / Time No Known Allergies Allergy Verified 06/25/25 16:58 Visit Medications Acetaminophen (Acetaminophen 325 Mg Tablet) 325 mg PO Q6H PRN PRN Reason: Pain (1-3) & Fever >100.4 Stop: 07/24/25 12:53 Norepinephrine/Dextrose (Levophed In D5w 8mg/250ml) 8 mg in 250 mls @ 9.483 mls/hr IV .Q24H PRN; Protocol PRN Reason: PER PROTOCOL Stop: 07/24/25 09:07 Last Titration: 06/24/25 12:40 Dose: 0.07 mcg/kg/min, 13.276 mls/hr Octreotide Acetate 1,000 mcg/ (Sodium Chloride) 102 mls @ 5.1 mls/hr IV .Q20H CHYNA; Protocol Stop: 06/29/25 12:57 Ceftriaxone Sodium/Dextrose (Rocephin/D5w 1gm Iv Premix) 1 gm in 50 mls @ 100 mls/hr IV QDAY CHYNA Stop: 07/01/25 12:58 Octreotide Acetate 1,000 mcg/ (Sodium Chloride) 102 mls @ 5.1 mls/hr IV .Q20H CHYNA; Protocol Stop: 06/25/25 09:14 Ondansetron HCl (Ondansetron Inj 2 Mg/Ml Inj 2 Ml) 4 mg IVP Q6H PRN; Protocol PRN Reason: NAUSEA OR VOMITING Stop: 07/24/25 12:55 Pantoprazole Sodium (Pantoprazole Inj 40 Mg Vial) 40 mg IVP Q12HR CHYNA Stop: 07/24/25 20:59 Discontinued Medications Midodrine (Midodrine 5 Mg Tablet) 5 mg PO X1 STA Stop: 06/24/25 10:06 Last Admin: 06/24/25 10:16 Dose: 5 mg Octreotide Acetate (Octreotide Acet Inj 50 Mcg/Ml Vial) 50 mcg IV X1 ONE Stop: 06/24/25 12:58 Pantoprazole Sodium (Pantoprazole Inj 40 Mg Vial) 80 mg IVP X1 ONE Stop: 06/24/25 12:57 Assessment & Plan Plan Assessment and plan: Summary: Mr. King is a 65-year-old male with past medical history of heart failure with reduced ejection fraction, EF 20 to 25% 03/2025, combined systolic and diastolic heart failure, mild to moderate AV stenosis, benign prostate hypertrophy, ?Cirrhosis, hepatitis C infection, infrarenal abdominal aortic aneurysm, peripheral arterial disease status post iliac stent, hyperlipidemia and former cocaine use and chronic smoker with 30 pack years who presented to [facility] emergency department on June 24, 2025 with a chief complaint of dark stools. ICU team consulted in setting of shock and active GI bleed. Neurological Alert and oriented x 3, no active issues Cardiology #Shock, likely hypovolemic/hemorrhagic - Multifactorial: Very likely hemorrhagic/hypovolemic acute GI bleed, may be some component of distributive shock considering patient does have underlying liver disease, though clinically there is low suspicion of cirrhosis. - Patient found to be hypotensive in ED, has been complaining of dark stool since the last 2 days, in ED patient has had 3 dark bowel movements today, significantly tachycardic, requiring pressor support to make MAP greater than 65 currently on Levophed 0.05. Plan: - Ordered 1 unit PRBC, follow posttransfusion H&H, consider transfusing another unit as needed - Continue Levophed to maintain MAP greater than 65, goal to wean off of Levophed. - GI consulted for EGD, control source of bleeding - Placed 2 18-gauge IVs #Heart failure with reduced ejection fraction, EF 20-25%, March 2025 #Combined systolic and diastolic heart failure #Mild to moderate AV stenosis Patient has history of heart failure with reduced ejection fraction, currently seems to be euvolemic not in any acute decompensation. On GDMT outpatient, follows up with business operations consultant Dr. Ernie Mcclelland Echocardiogram March 2025 shows Dialated cardiomyopathy. Dilated LV. Severe systolic dysfunction. Severe global hypokinesis. Estimated EF 20-30% %. Grade 2 diastolic dysfunction. Mild RV dilatation. Mild RV systolic dysufnction. Mild to modertae AV stenosis. Low gradient due to low EF. Mean PG 12-14 mm hg but JE aroind 1.1 to 1.2 sq cm which indicates at least moderate stenosis. Mild MAC. Mild MR. Mild TR. Trace AI. Mildly dilated LA volume 40.5 mL/m? Plan: - Strict intake and output - Currently n.p.o., will place on fluid restriction 1500 cc - Daily weight - Hold GDMT, patient currently in shock - Cardiology consulted, appreciate recommendations #Infrarenal abdominal aortic aneurysm, 3.3 cm #Peripheral arterial disease #S/p Iliac Stent #Narrowing of left common iliac artery. Patient has aortoiliac stent, CT chest abdomen pelvis shows severe narrowing left common iliac, patient does have a aortic iliac stent. Bilateral pedal pulses palpated, no evidence of limb ischemia MONICO (05/01/2025): Right ankle/Brachial index 1.1 and Left ankle/Brachial index 1.1 - Outpatient follow-up #Hyperlipidemia Lipid panel 05/01/2025 shows triglycerides 67, cholesterol 127, LDL 81, HDL 33, patient on atorvastatin 80 mg at bedtime ? Hold currently n.p.o. Pulmonary No active issues, currently stable on room air # Chronic smoking history, 30 pack years Not an active smoker currently, history of 30 pack years, no lung nodules/lymphadenopathy noted on CTA - Outpatient screening as appropriate Gastrointestinal #Acute GI bleed, likely upper #Melena #Cirrhosis, on imaging, ?Decompensated cirrhosis #Transaminitis Patient has stools of dark stools, hemoglobin on discharge during last admission was around 14, presenting with hemoglobin of 8.8, on aspirin outpatient anticoagulation. Never formally diagnosed with cirrhosis. Currently low clinical suspicion, platelets within normal limits, low albumin 3.1, no evidence of acutely decompensated cirrhosis otherwise. 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 and underlying cardiac cirrhosis Abdomen US 05/01/25 shows: Cholelithiasis, Abnormal thickening of the gallbladder wall 0.6 cm, consider HIDA scan or MRCP follow-up, Common bile duct 0.7 cm no stones, Cirrhosis, fatty infiltration, Mild ascites Liver US 05/04/2025 RUQ US showed mild gallbladder wall thickened 0.5 cm Meld?Na score: 9 points, less than 2% estimated 90-day mortality Child-Moran class A: 6 points, Life expectancy 15 to 20 years, abdominal surgery perioperative mortality 10% Agustin?Blatchford bleeding score: 17 points, high risk GI bleed Plan: - Loading dose octreotide, x 1, started on octreotide drip (06/24-, will discontinue if no evidence of esophageal varices - SBP prophylaxis: Ceftriaxone daily - Loading dose Protonix, Protonix 40 twice daily - GI consulted, appreciate recommendations, scheduled for EGD - Will transfuse 1 unit PRBC, follow posttransfusion H&H consider transfusing another unit as needed - Follow CBC/CMP in a.m., follow INR in a.m. Renal/Genitourinary #Benign prostate hypertrophy Patient on Flomax outpatient, will hold, n.p.o. currently #Hyperchloremic normal anion gap acidosis Likely due to GI loss, patient is having dark melenic stools, 3 stools in the ED today. - Follow CMP in a.m. #Elevated BUN, hyperosmolality Elevated BUN 45, likely secondary to digestion of RBCs, high suspicion of upper GI bleed Endocrine No active problems Hematology #Leukocytosis WBC, 11,000 on presentation, likely reactive #Normocytic normochromic anemia Anemia secondary to blood loss underlying GI bleed - Follow CBC in a.m. - Transfuse if hemoglobin less than 7 Infectious Disease #Active hep C infection in May 2025 hepatitis panel shows positive hep C antibody, HCV viral load of 2.5 million HCV RNA quant and positive HCV RNA PCR - Follow-up with infectious disease outpatient, consider treatment, Child-Moran class A, overall low suspicion clinically of cirrhosis SBP prophylaxis: Ceftriaxone Blood cultures: Pending Urine culture: Pending Integumentary No active problems DVT prophylaxis: SCDs GI prophylaxis: Protonix twice daily Diet: N.p.o. Lines: Peripheral IV Code status: Full code Case discussed with Attending Physician Dr. Bg Sargent MD Internal Medicine PGY-2 Disclaimer: This note was dictated by speech recognition. Minor errors in energy director may be present due to voice recognition software. Attending Provider Attestation/Addendum Patient seen and examined with above resident, Dennis Sargent MD. I agree with the findings, assessment, and plan of care as document except for any differences below. Patient admitted with likely brisk upper GI bleed and hemorrhagic shock. Patient responding to volume resuscitation and will try to wean off Levophed. Placed on empiric PPI and octreotide. Patient with suggestive history of cirrhosis of this is questionable based on biochemical and imaging markers now. GI is aware and will be scoping the patient when able to safely do from a hemodynamic perspective. Adequately resuscitated in the ICU with close monitoring appropriate access. This will need to be done cautiously given the patient's history of heart failure as we do not want to place him in overload. Patient also placed on empiric ceftriaxone for prevention of SBP. Continue to monitor closely with serial labs in the ICU. Total critical care time: I personally spent 35 minutes reviewing physiologic parameters, directing plan of care, coordination of care with other specialist, and counseling patient at bedside. This is exclusive of time spent teaching housestaff performing separate billable procedures. Patient remains at significant risk for further morbidity and mortality warranting close monitoring and care only available in the ICU. Patient required critical care services for hypovolemic shock, gastrointestinal hemorrhage, decompensated cirrhosis, heart failure with reduced ejection fraction.
[2025-06-24] MEDS: cefTRIAXone/D5w 1gm IV premix 1 GM/50 ML BAG IV (14:10)
[2025-06-24] MEDS: OCTREOTIDE ACET INJ 1,000 MCG in SODIUM CHLORIDE 0.9% 100 ML 5.1 MCG IV (14:14)
[2025-06-24] MEDS: OCTREOTIDE ACET INJ 50 mCg/ML VIAL IV (14:15)
--- NOTE | 2025-06-24 15:41 | PC.CC ---
Patient is a 65 year-old male who presents to the hospital for GI Bleed. DELISAWChelsea and WORLD TRAVEL COUNSELOR Student Keyanan made [id number] contact with patient. ASW introduced self, role, and reason for visit. Patient appeared alert and oriented to self, location, and situation. Patient provided consent for WORLD TRAVEL COUNSELOR to remain in the room during assessment. Patient was pleasant and engaged in initial assessment. Patient confirmed information on demographics and reports to living alone. His medical decision maker in the event he is unable to make his own decisions is his brother, Mook King . Patient reports he ambulates independently and completes his own ADLs. Patient does not require any DME or oxygen. Patient receives primary care at [facility] with provider Kapil. Patient uses [facility] for prescription medications. Upon discharge patient plans to return home. environmental services supervisor to follow up with any discharge needs.
--- NOTE | 2025-06-24 17:52 | ESCONSULT_ITS ---
HPI Data of Consult Patient: known to practice within the last 3 years Consult date: 06/24/25 Requesting Physician: Chema Pederson MD Admitting Provider: Chema Pederson MD Attending Provider: Chema Pederson MD Primary Care Provider: Julian Dick MD Consult Narrative Reason for consult: Heart failure with reduced ejection fraction History of present illness: Mr. King is a 65-year-old male with past medical history of heart failure with reduced ejection fraction, EF 20 to 25% 03/2025, combined systolic and diastolic heart failure, low-flow moderate AV stenosis, hypertension, hyperlipidemia, infrarenal abdominal aortic aneurysm, peripheral arterial disease status post iliac stent, hyperlipidemia, former cocaine use, chronic smoker (30 pack years), benign prostate hypertrophy, Cirrhosis and Hepatitis C infection who presented to [facility] emergency department on June 24, 2025 with a chief complaint of dark stools. Patient reported that his symptoms started about 2 days ago, reports having black stools for 1-1/2-day also complaining of abdominal pain at times. Patient was recently discharged to rehab from [facility] on May 12, 2025 and was recently discharged home, patient has been taking his home medications including aspirin, not on any anticoagulation. Patient denies any chest pain, palpitation, dizziness, PND, orthopnea, shortness of breath, headache, syncopal episode and vomiting. Patient is well-known to cardiology service, follows outpatient, patient currently has no active drug use, denies any drug use in the last 20 years. 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 Patient did get multiple echocardiograms, was on GDMT outpatient, patient currently on adequate regimen of GDMT outpatient currently on Entresto twice daily, spironolactone 25 mg half tablet daily, metoprolol succinate 2 mg daily and has been compliant with his regimen outpatient. Patient also has mild to moderate aortic valve stenosis, both gradients are low at 20 to 40 mmHg across aortic valve patient's valve area calculated was 1 cm?, patient has 4/6 ejection systolic murmur in the right second intercostal space radiating to the neck. Patient mostly has low-flow low gradient aortic stenosis which is moderate and will need close outpatient follow-up. ED Course: ED Vitals: On presentation in ED blood pressure 109/44, heart rate 117, respiratory rate 15, temp 98.0, O2 sat 100 on room air ED Labs: ED labs pertinent for WBC 11, RBC 3.04, hemoglobin 8.8, hematocrit 27.4, left shift with neutrophilia noted, INR 1.3, chloride 113, bicarb 19.3, BUN 45, glucose 134, osmolality 298, AST 110, ALT 101, BNP 557, total protein 5.4, albumin 3.1. Urine analysis showed turbid urine with 1+ protein trace blood leukocyte esterase positive, RBC 18, WBC 723, contaminated sample with squamous epithelial cells 6 no bacteria noted in urine. Urine tox cream was negative. ED Imaging: CT chest abdomen pelvis shows negative for aortic aneurysm, pulmonary artery emboli. Shows severe scarring of left kidney, infrarenal abdominal aorta dimension 3.3 cm small bulge of lateral margin of infrarenal abdominal aorta, bilateral iliac artery stents with significant narrowing of left common iliac artery. ED Treatment: Patient was started on Levophed in emergency department and was given Midodrine 5 mg. 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 Family History: No pertinent family cardiac history Home medications: Tylenol as needed, aspirin daily, atorvastatin 80 mg at bedtime, Bumex 1 mg twice daily, Dulcolax suppository 10 mg as needed, Entresto 1 tablet twice daily, Fleet enema as needed, Flomax 0.4 mg daily, metoprolol succinate 25 mg daily, milk of mag as needed, spironolactone 25 mg half tablet daily and daily multivitamin cc:: cc: Chema Pederson MD Review of Systems Review of Systems Systems Reviewed: All systems reviewed, normal except as documented Exam Vital Signs Temp Pulse Resp BP Pulse Ox O2 Del Method 98.2 F 113 H 19 88/69 L 97 Room Air 06/24/25 16:16 06/24/25 16:16 06/24/25 16:16 06/24/25 16:16 06/24/25 16:16 06/24/25 15:34 Narrative Exam General Appearance: Alert & Oriented X3, well-nourished male who is lying in bed in no acute distress HEENT: Skull symmetrical and atraumatic. Conjunctivae pink and moist. Pupils equal, round, reactive to light and accommodation (PERRL). External ear without lesion or discharge. Straight, nares patient, mucosa pink, no discharge. Cardio: Sinus tachycardia. Heart sounds difficult to appreciate, possible holosystolic murmur and bruit on carotid auscultation. Minimal peripheral edema. No scrotal edema noted. Lungs: Symmetric with good expansion. Chest and back non-tender. Abdomen: Non-tender, Non-distended, Normal Reactive Bowel Sounds Neuro: Alert, cooperative, oriented to person, place, and time. Speech clear. CN grossly intact. Upper motor strength 5/5 and Lower motor strength 5/5. Sensation intact. Extremities: Second digit amputation noted left foot. Results Labs 06/25/25 04:24 06/25/25 04:24 Labs: Short CBC 06/24/25 Range/Units 08:43 WBC 11.0 H (3.8-10.6) Thou/mm3 Hgb 8.8 L (13.5-16.0) g/dL Hct 27.4 L (41.0-53.0) % Plt Count 214 (140-440) Thou/mm3 BMP 06/24/25 08:43 Sodium 143 Potassium 4.8 Chloride 113 H Carbon Dioxide 19.3 L BUN 45 H Creatinine 1.0 Glucose 134 H Calcium 8.3 Cardiac Enzymes 06/24/25 Range/Units 08:43 Troponin I < 0.020 (0.0-0.045) ng/mL Liver Function 06/24/25 Range/Units 08:43 Total Bilirubin 0.6 (0.3-1.2) mg/dL AST 110 H (0-34) U/L ALT 101 H (10-49) U/L Alkaline Phosphatase 72 (46-116) U/L Albumin 3.1 L (3.4-4.8) gm/dL Urine 06/24/25 Range/Units 08:39 Urine Color Yellow (Lt Yel-Yel) Urine Clarity Turbid A (Clear/Hazy) Urine pH 6.0 (5.0-7.0) Ur Specific [place] 1.020 (1.001-1.035) Urine Protein 1+ A (Neg - Trace) Urine Glucose (UA) Negative (Negative) Quality Measures Quality Measures sepsis Current suspected stage: ruled out Possible source: GI tract/intra- abdominal Blood cultures ordered: no Antibiotic ordered: No Medications Home Medications and Allergies Home Medications ?Medication ?Instructions ?Recorded ?Confirmed ?Type tamsulosin 0.4 mg capsule 0.4 mg PO DAILY 03/15/25 History Allergies Allergy/AdvReac Type Severity Reaction Status Date / Time No Known Allergies Allergy Verified 06/25/25 10:35 Visit Medications Acetaminophen (Acetaminophen 325 Mg Tablet) 325 mg PO Q6H PRN PRN Reason: Pain (1-3) & Fever >100.4 Stop: 07/24/25 12:53 Norepinephrine/Dextrose (Levophed In D5w 8mg/250ml) 8 mg in 250 mls @ 9.483 mls/hr IV .Q24H PRN; Protocol PRN Reason: PER PROTOCOL Stop: 07/24/25 09:07 Last Titration: 06/24/25 15:55 Dose: 0.05 mcg/kg/min, 9.483 mls/hr Octreotide Acetate 1,000 mcg/ (Sodium Chloride) 102 mls @ 5.1 mls/hr IV .Q20H CHYNA; Protocol Stop: 06/29/25 12:57 Ceftriaxone Sodium/Dextrose (Rocephin/D5w 1gm Iv Premix) 1 gm in 50 mls @ 100 mls/hr IV QDAY CHYNA Stop: 07/01/25 12:58 Last Infusion: 06/24/25 15:54 Dose: Infused Octreotide Acetate 1,000 mcg/ (Sodium Chloride) 102 mls @ 5.1 mls/hr IV .Q20H CHYNA; Protocol Stop: 06/25/25 09:14 Last Admin: 06/24/25 14:14 Dose: 50 mcg/hr, 5.1 mls/hr Ondansetron HCl (Ondansetron Inj 2 Mg/Ml Inj 2 Ml) 4 mg IVP Q6H PRN; Protocol PRN Reason: NAUSEA OR VOMITING Stop: 07/24/25 12:55 Pantoprazole Sodium (Pantoprazole Inj 40 Mg Vial) 40 mg IVP Q12HR CHYNA Stop: 07/24/25 20:59 Discontinued Medications Midodrine (Midodrine 5 Mg Tablet) 5 mg PO X1 STA Stop: 06/24/25 10:06 Last Admin: 06/24/25 10:16 Dose: 5 mg Octreotide Acetate (Octreotide Acet Inj 50 Mcg/Ml Vial) 50 mcg IV X1 ONE Stop: 06/24/25 12:58 Last Admin: 06/24/25 14:15 Dose: 50 mcg Pantoprazole Sodium (Pantoprazole Inj 40 Mg Vial) 80 mg IVP X1 ONE Stop: 06/24/25 12:57 Last Admin: 06/24/25 14:08 Dose: 80 mg Assessment & Plan Plan Assessment and plan: Summary: Mr. King is a 65-year-old male with past medical history of heart failure with reduced ejection fraction, EF 20 to 25% 03/2025, combined systolic and diastolic heart failure, low-flow moderate AV stenosis, hypertension, hyperlipidemia, infrarenal abdominal aortic aneurysm, peripheral arterial disease status post iliac stent, hyperlipidemia, former cocaine use, chronic smoker (30 pack years), benign prostate hypertrophy, Cirrhosis and Hepatitis C infection who presented to [facility] emergency department on June 24, 2025 with a chief complaint of dark stools. Cardiology consulted in the setting of heart failure with reduced ejection fraction, EF 20 to 25% noted in March. #Heart failure with reduced ejection fraction, EF 20-25%, March 2025 #Combined systolic and diastolic heart failure #Low Flow Moderate AV stenosis Patient has history of heart failure with reduced ejection fraction, currently seems to be euvolemic not in any acute decompensation. Patient currently stable on room air, minimal peripheral edema noted, does not seem to be in any acute exacerbation. Echocardiogram March 2025 shows Dialated cardiomyopathy. Dilated LV. Severe systolic dysfunction. Severe global hypokinesis. Estimated EF 20-30% %. Grade 2 diastolic dysfunction. Mild RV dilatation. Mild RV systolic dysufnction. Mild to modertae AV stenosis. Low gradient due to low EF. Mean PG 12-14 mm hg but JE aroind 1.1 to 1.2 sq cm which indicates at least moderate stenosis. Mild MAC. Mild MR. Mild TR. Trace AI. Mildly dilated LA volume 40.5 mL/m? EKG 06/24 shows sinus tachycardia, rate 108, inverted T waves noted on V4, V5, V6, QRSd 103 Lipid panel 05/01/2025 shows triglycerides 67, cholesterol 127, LDL 81, HDL 33, A1c 5.4, TSH 1.2 RCRI score: 2 points, patient has history of congestive heart failure and EKG changes suggestive of ischemic disease METs greater than 4, patient is independent outpatient. Plan: - Strict intake and output - Fluid restriction 1500 cc - Daily weight - Hold GDMT, resume as tolerated when stable - Okay to hold aspirin for now - Patient will benefit from ICD placement outpatient. - Close monitoring outpatient for low flow moderate AV stenosis #Infrarenal abdominal aortic aneurysm, 3.3 cm #Peripheral arterial disease #S/p Iliac Stent #Narrowing of left common iliac artery. Patient has aortoiliac stent, CT chest abdomen pelvis shows severe narrowing left common iliac, patient does have a aortic iliac stent. Bilateral pedal pulses palpated, no evidence of limb ischemia, left foot amputation noted. MONICO (05/01/2025): Right ankle/Brachial index 1.1 and Left ankle/Brachial index 1.1 - Outpatient follow-up #Chronic smoking history, 30 pack years #Acute GI bleed, likely upper #Melena #Cirrhosis, on imaging, ?Decompensated cirrhosis #Transaminitis #Benign prostate hypertrophy #Hyperchloremic normal anion gap acidosis #Elevated BUN #Leukocytosis #Normocytic normochromic anemia #Hepatitis C Management as per differential repairer team. Attending Provider Attestation/Addendum I have personally seen and examined the patient separately on the above date of service and discussed the plan of care with the resident. I reviewed the resident Dr. Vasu Whitlock consultation progress note and agree with the resident findings and plan in the note above and have also edited the documentation to reflect my findings and plan. Patient well-known to me from previous admission in May 2025 and also followed up with me in the clinic. Patient has a history of PAD status post MAGNETIC TAPE WINDER with bilateral iliac stents, low-flow low gradient moderate aortic stenosis, infrarenal abdominal aortic aneurysm, severe systolic congestive heart failure with an EF of 20 to 25%. Patient was started on goal-directed medical therapy and is doing well. On examination patient does not appear to be in any kind of heart failure and is euvolemic. Kidney function shows BUN of 43 and creatinine of 1.1. Patient was admitted for possible GI bleed and elevated BUN mostly secondary to the upper GI bleed. Primary team did consult GI for EGD and colonoscopy. Patient is at acceptable cardiac risk for the surgery as he is RCRI score is only 1. Patient is on octreotide drip right now. Patient started on low-dose norepinephrine and his lactate was normal. Troponins have been negative and patient denies any chest pain or chest pressure. EKG without any acute ST changes suggestive of any ischemia. Acute coronary syndrome at the present point of time. All his goal-directed therapy is on hold as the patient was hypotensive on arrival but his hemoglobin was 8.5 and he did receive a transfusion. His baseline hemoglobin is around 15. Recommend to keep hemoglobin greater than 10. Continue to hold aspirin for now along with any other blood thinners. Management of rest of the medical conditions as per primary team and other consultants. Thank you for the consult and allowing me to participate in the care of the patient. Cardiology will continue to follow. Ernie Mcclelland M.D. Interventional Cardiology
--- NOTE | 2025-06-24 18:23 | PC.NURSE ---
PT SOILED IN URINE AND BLACK TARRY FECES, LINENS CHANGED AND PT ADJUSTED IN BED, URINAL AND CALL LIGHT LEFT AT BEDSIDE. PT ENCOURAGED TO USE CALL LIGHT WHEN NEEDING ASSISTANCE.
[2025-06-24 20:54] LABS: Hematocrit 28.7 % (41.0-53.0); Hemoglobin 9.7 g/dL (13.5-16.0)
--- NOTE | 2025-06-24 20:54 | PD.IMCONS ---
HPI Data of Consult Requesting Physician: Chema Pederson MD Primary Care Provider: Julian Dick MD Consult Narrative Reason for consult: Melena significant drop in H&H to 8.8/27.4 from 14.7 and 45.2 on 05/10/2025 History of present illness: 65-year-old male presented to the hospital with 4-day history of worsening abdominal pain and 2-day history of melanotic stools On 05/10/2025 patient's hemoglobin hematocrit 14.7 and 45.2 today it was 8.8 and 27.4 with a platelet count of 214,000 BUN/creatinine at 45 and 1.0 Patient has history of congestive heart failure ejection fraction is about 5020 and 30% moderate aortic stenosis BPH hypertension hepatitis C and has a significant history of smoking but quit few years ago CTA chest abdomen pelvis showed significant narrowing of the left common iliac artery otherwise basically negative CTA chest abdomen pelvis cc:: cc: Chema Pederson MD Review of Systems Review of Systems Systems Reviewed: All systems reviewed, normal except as documented Past Medical History Surgical History OTHER SURGICAL HX: As in the history of present illness Meds Home Medications and Allergies Home Medications ?Medication ?Instructions ?Recorded ?Confirmed ?Type tamsulosin 0.4 mg capsule 0.4 mg PO DAILY 03/15/25 06/24/25 History Allergies Allergy/AdvReac Type Severity Reaction Status Date / Time No Known Allergies Allergy Verified 06/25/25 16:58 Exam Vital Signs Temp Pulse Resp BP Pulse Ox O2 Del Method 98.1 F 112 H 20 108/52 L 98 Room Air 06/24/25 19:05 06/24/25 19:05 06/24/25 19:05 06/24/25 19:05 06/24/25 19:05 06/24/25 18:01 Constitutional Comments: Chronically ill-appearing Routine Respiratory Exam Comments: Normal to auscultation Routine Abdominal Exam Comments: Positive bowel sounds Results Labs 06/26/25 05:25 06/26/25 05:25 Labs: Short CBC 06/24/25 Range/Units 08:43 WBC 11.0 H (3.8-10.6) Thou/mm3 Hgb 8.8 L (13.5-16.0) g/dL Hct 27.4 L (41.0-53.0) % Plt Count 214 (140-440) Thou/mm3 BMP 06/24/25 08:43 Sodium 143 Potassium 4.8 Chloride 113 H Carbon Dioxide 19.3 L BUN 45 H Creatinine 1.0 Glucose 134 H Calcium 8.3 Cardiac Enzymes 06/24/25 Range/Units 08:43 Troponin I < 0.020 (0.0-0.045) ng/mL Liver Function 06/24/25 Range/Units 08:43 Total Bilirubin 0.6 (0.3-1.2) mg/dL AST 110 H (0-34) U/L ALT 101 H (10-49) U/L Alkaline Phosphatase 72 (46-116) U/L Albumin 3.1 L (3.4-4.8) gm/dL Urine 06/24/25 Range/Units 08:39 Urine Color Yellow (Lt Yel-Yel) Urine Clarity Turbid A (Clear/Hazy) Urine pH 6.0 (5.0-7.0) Ur Specific [place] 1.020 (1.001-1.035) Urine Protein 1+ A (Neg - Trace) Urine Glucose (UA) Negative (Negative) Assessment and Plan Additional Assessment & Plan Additional Plan: # Melena # Posthemorrhagic anemia Plan Agree with the blood transfusion Let the patient settle down Consent obtained for fiberoptic esophagogastroduodenoscopy with possible biopsy possible therapeutic intervention under intravenous moderate sedation scheduled for tomorrow IV Protonix N.p.o. midnight tonight except p.o. meds Other medical problems include Systolic and diastolic congestive heart failure ejection fraction somewhere close to 20% Moderate aortic stenosis BPH Hepatitis C Abdominal aortic aneurysm Thank you very much for the opportunity to participate in the care of this patient
[2025-06-25] VITALS (73 sets, daily range): BP systolic 77–137; BP diastolic 54–103; PULSE 94–130; RESP 8–28; TEMP 36–36.9; O2SAT 89–100; BMI 29.6
[2025-06-25 05:27] LABS: Basophils # (Auto) 0.1 Thou/mm3 (0.0-0.2); Basophils % (Auto) 1 % (0-2.5); Eosinophils # (Auto) 0.1 Thou/mm3 (0.0-0.5); Eosinophils % (Auto) 2 % (0-10); Hematocrit 29.0 % (41.0-53.0); Hemoglobin 9.5 g/dL (13.5-16.0); Immature Granulocytes Auto 0.05 Thou/mm3 (0.00-0.00); Lymphocytes # (Auto) 1.6 Thou/mm3 (1.0-4.8); Lymphocytes % (Auto) 16 % (10-50); Mean Corpuscular HGB Conc 32.8 g/dl (31.0-37.0); Mean Corpuscular Hemoglobin 29.3 pg (25.0-35.0); Mean Corpuscular Volume 90 fL (80-100); Monocytes # (Auto) 0.8 Thou/mm3 (0.0-0.8); Monocytes % (Auto) 8 % (0-12); Neutrophils # (Auto) 7.0 Thou/mm3 (1.8-7.7); Neutrophils % (Auto) 73 % (37-80); Nucleated Red Blood Cell # 0.00 Thou/mm3 (0.00-0.00); Nucleated Red Blood Cell % 0 /100 WBC (0); Platelet Count 169 Thou/mm3 (140-440); RDW Standard Deviation 50.8 fL (35.1-43.9); Red Blood Count 3.24 Miln/mm3 (4.50-5.90); White Blood Count 9.6 Thou/mm3 (3.8-10.6)
[2025-06-25 06:13] LABS: Alanine Aminotransferase 81 U/L (10-49); Albumin, Serum 3.1 gm/dL (3.4-4.8); Albumin/Globulin Ratio 1.3 (1.2-2.2); Alkaline Phosphatase 63 U/L (46-116); Anion Gap 8 (7-16); Aspartate Amino Transferase 76 U/L (0-34); BUN/Creatinine Ratio 39 Ratio (12-20); Bilirubin,Total 0.7 mg/dL (0.3-1.2); Blood Urea Nitrogen 43 mg/dL (9-23); Calcium 8.5 mg/dL (8.3-10.6); Calcium (Corrected) 9.2 mg/dL (8.5-10.1); Carbon Dioxide 23.4 mMol/L (20.0-31.0); Chloride 113 mMol/L (98-107); Creatinine (Component) 1.1 mg/dL (0.6-1.3); Estimated Creatinine Clearance 85.1 mL/min (>60); Globulin 2.3 gm/dL (2.3-3.5); Glucose 129 mg/dL (74-106); Magnesium 2.0 mg/dL (1.6-2.6); Osmolality,Calculated 299 (275-295); Phosphorous 4.3 mg/dL (2.4-5.1); Potassium 4.5 mMol/L (3.4-5.1); Sodium 144 mMol/L (136-145); Total Protein 5.4 gm/dL (5.7-8.2); eGFR > 60 See Note
[2025-06-25 07:37] LABS: INR 1.2 (0.9-1.3); Prothrombin Time 12.6 Seconds (9.0-12.2)
[2025-06-25] MEDS: cefTRIAXone/D5w 1gm IV premix 1 GM/50 ML BAG IV (08:45)
--- NOTE | 2025-06-25 12:15 | PD.RESPRO ---
Documentation for date of: 06/25/25 Subjective Subjective Interval history: Mr. King is a 65-year-old male with past medical history of heart failure with reduced ejection fraction, EF 20 to 25% 03/2025, combined systolic and diastolic heart failure, mild to moderate AV stenosis, benign prostate hypertrophy, ?Cirrhosis, hepatitis C infection, infrarenal abdominal aortic aneurysm, peripheral arterial disease status post iliac stent, hyperlipidemia and former cocaine use and chronic smoker with 30 pack years who presented to [facility] emergency department on June 24, 2025 with a chief complaint of dark stools. Patient reported that his symptoms started about 2 days ago, reports having black stools for 1-1/2-day also complaining of abdominal pain at times, patient denies any nausea and vomiting currently, denies any hematemesis. Patient was recently discharged to rehab from [facility] on May 12, 2025 and was recently discharged home, patient has been taking his home medications including aspirin, not on any anticoagulation. Patient follows up outpatient with nutrition representative Dr. Ernie Mcclelland, was recently seen outpatient in his office is on appropriate goal-directed medical therapy, reports adherence to medications outpatient, denies any recent drug use or smoking. Patient in ED noted to be tachycardic and hypotensive, was started on Levophed gtt. by ED physician. ED Course: ED Vitals: On presentation in ED blood pressure 109/44, heart rate 117, respiratory rate 15, temp 98.0, O2 sat 100 on room air ED Labs: ED labs pertinent for WBC 11, RBC 3.04, hemoglobin 8.8, hematocrit 27.4, left shift with neutrophilia noted, INR 1.3, chloride 113, bicarb 19.3, BUN 45, glucose 134, osmolality 298, AST 110, ALT 101, BNP 557, total protein 5.4, albumin 3.1. Urine analysis showed turbid urine with 1+ protein trace blood leukocyte esterase positive, RBC 18, WBC 723, contaminated sample with squamous epithelial cells 6 no bacteria noted in urine. Urine tox cream was negative. ED Imaging: CT chest abdomen pelvis shows negative for aortic aneurysm, pulmonary artery emboli. Shows severe scarring of left kidney, infrarenal abdominal aorta dimension 3.3 cm small bulge of lateral margin of infrarenal abdominal aorta, bilateral iliac artery stents with significant narrowing of left common iliac artery. ED Treatment: Patient was started on Levophed in emergency department and was given 5 mg. 06/25/2025: Patient seen and examined at bedside, did receive 2 unit PRBC overnight, this morning no concern of fluid overload status, patient is stable on room air. Patient was weaned off of pressors overnight Levophed was turned off at 8 PM posttransfusion currently not requiring any Levophed, we will continue with octreotide gtt., although low clinical suspicion of cirrhosis overall, we will also continue with SBP prophylaxis and Protonix, patient is scheduled for EGD today by gastroenterology. Patient is currently stable, has no current complaints is stable to be downgraded to telemetry, patient is signed off to hospitalist team, hospitalist team to resume care of the patient. Exam Vital Signs Temp Pulse Resp BP Pulse Ox O2 Del Method 98.1 F 108 H 20 111/70 98 Room Air 06/25/25 12:00 06/25/25 12:00 06/25/25 12:00 06/25/25 12:00 06/25/25 12:00 06/25/25 07:00 Narrative Exam Physical Exam General: Awake and in no acute distress. Conversational and non-toxic appearing. HEENT: Normocephalic, atraumatic, mucous membranes moist. Heart: Sinus tachycardia, positive murmur aortic area. Lungs: Clear to auscultation with no wheezing or crackles. Abdomen: Soft, nondistended, mild tenderness, positive bowel sounds. ?No guarding or rebound tenderness. Neurologic: Alert and oriented x3, no gross neurological deficit, and patient able to move all 4 extremities. Extremities: Trace edema. Amputated left foot second digit Skin: No rash or ecchymoses. Objective Labs 07/01/25 05:07 07/01/25 05:07 Labs: Laboratory Results - last 24 hr 06/24/25 06/24/25 06/24/25 08:43 13:33 20:16 WBC RBC Hgb 9.7 L Hct 28.7 L MCV MCH MCHC RDW Std Deviation Plt Count Neut % (Auto) Lymph % (Auto) [place] % (Auto) Eos % (Auto) Baso % (Auto) Neut # (Auto) Lymph # (Auto) [place] # (Auto) Eos # (Auto) Baso # (Auto) Immature Gran # (Auto) Absolute Nucleated RBC Immature Gran % Nucleated RBC % PT INR Sodium Potassium Chloride Carbon Dioxide Anion Gap BUN Creatinine Estim Creat Clear Calc eGFR BUN/Creatinine Ratio Glucose Calculated Osmolality Lactic Acid 1.9 Calcium Corrected Calcium Phosphorus Magnesium Total Bilirubin AST ALT Alkaline Phosphatase Total Protein Albumin Globulin Albumin/Globulin Ratio Blood Type O Positive Antibody Screen NEGATIVE Crossmatch See Detail Blood Bank Wristband ID Yes 06/25/25 04:24 WBC 9.6 RBC 3.24 L Hgb 9.5 L Hct 29.0 L MCV 90 MCH 29.3 MCHC 32.8 RDW Std Deviation 50.8 H Plt Count 169 D Neut % (Auto) 73 Lymph % (Auto) 16 [place] % (Auto) 8 Eos % (Auto) 2 Baso % (Auto) 1 Neut # (Auto) 7.0 Lymph # (Auto) 1.6 [place] # (Auto) 0.8 Eos # (Auto) 0.1 Baso # (Auto) 0.1 Immature Gran # (Auto) 0.05 H Absolute Nucleated RBC 0.00 Immature Gran % 1 H Nucleated RBC % 0 PT 12.6 H INR 1.2 Sodium 144 Potassium 4.5 Chloride 113 H Carbon Dioxide 23.4 Anion Gap 8 BUN 43 H Creatinine 1.1 Estim Creat Clear Calc 85.1 eGFR > 60 BUN/Creatinine Ratio 39 H Glucose 129 H Calculated Osmolality 299 H Lactic Acid Calcium 8.5 Corrected Calcium 9.2 Phosphorus 4.3 Magnesium 2.0 Total Bilirubin 0.7 AST 76 H ALT 81 H Alkaline Phosphatase 63 Total Protein 5.4 L Albumin 3.1 L Globulin 2.3 Albumin/Globulin Ratio 1.3 Blood Type Antibody Screen Crossmatch Blood Bank Wristband ID Quality Measures Quality Measures sepsis Current suspected stage: ruled out Possible source: GI tract/intra-abdominal Blood cultures ordered: no Antibiotic ordered: Yes Assessment & Plan Assessment Current Active Medications: Generic Name Dose Route Start Last Admin Trade Name Freq PRN Reason Stop Dose Admin Acetaminophen 325 mg 06/24/25 12:54 Acetaminophen 325 Mg Tablet PO 07/24/25 12:53 Q6H PRN Pain (1-3) & Fever >100.4 Norepinephrine/Dextrose 8 mg in 250 mls @ 9.483 mls/hr 06/24/25 09:08 06/24/25 20:00 Levophed In D5w 8mg/250ml IV 07/24/25 09:07 0 mcg/kg/min .Q24H PRN 0 mls/hr PER PROTOCOL Titration Protocol 0.05 MCG/KG/MIN Octreotide Acetate 1,000 mcg/ 102 mls @ 5.1 mls/hr 06/25/25 13:00 Sodium Chloride IV 06/29/25 12:59 .Q20H CHYNA Protocol 50 MCG/HR Ceftriaxone Sodium/Dextrose 1 gm in 50 mls @ 100 mls/hr 06/24/25 12:59 06/25/25 08:45 Rocephin/D5w 1gm Iv Premix IV 07/01/25 12:58 100 mls/hr QDAY CHYNA Administration Ondansetron HCl 4 mg 06/24/25 12:56 Ondansetron Inj 2 Mg/Ml Inj 2 Ml IVP 07/24/25 12:55 Q6H PRN NAUSEA OR VOMITING Protocol Pantoprazole Sodium 40 mg 06/24/25 21:00 06/25/25 08:45 Pantoprazole Inj 40 Mg Vial IVP 07/24/25 20:59 40 mg Q12HR CHYNA Administration Plan Assessment and plan: Summary: Mr. King is a 65-year-old male with past medical history of heart failure with reduced ejection fraction, EF 20 to 25% 03/2025, combined systolic and diastolic heart failure, mild to moderate AV stenosis, benign prostate hypertrophy, ?Cirrhosis, hepatitis C infection, infrarenal abdominal aortic aneurysm, peripheral arterial disease status post iliac stent, hyperlipidemia and former cocaine use and chronic smoker with 30 pack years who presented to [facility] emergency department on June 24, 2025 with a chief complaint of dark stools. ICU team consulted in setting of shock and active GI bleed. Neurological Alert and oriented x 3, no active issues Cardiology #Hypovolemic/hemorrhagic shock, resolved - Very likely hemorrhagic/hypovolemic acute GI bleed, may be some component of distributive shock considering patient does have underlying liver disease, though clinically there is low suspicion of cirrhosis. - Patient found to be hypotensive in ED, has been complaining of dark stool since the last 2 days, in ED patient has had 3 dark bowel movements today, significantly tachycardic, requiring pressor support to make MAP greater than 65 currently on Levophed 0.05. -Received 2 units PRBC, has been weaned off of Levophed. Plan: - MAP stable greater than 65, weaned off of Levophed, monitor blood pressure - GI consulted for EGD, control source of bleeding #Heart failure with reduced ejection fraction, EF 20-25%, March 2025 #Combined systolic and diastolic heart failure #Mild to moderate AV stenosis Patient has history of heart failure with reduced ejection fraction, currently seems to be euvolemic not in any acute decompensation. On GDMT outpatient, follows up with nutrition representative Dr. Ernie Mcclelland Echocardiogram March 2025 shows Dialated cardiomyopathy. Dilated LV. Severe systolic dysfunction. Severe global hypokinesis. Estimated EF 20-30% %. Grade 2 diastolic dysfunction. Mild RV dilatation. Mild RV systolic dysufnction. Mild to modertae AV stenosis. Low gradient due to low EF. Mean PG 12-14 mm hg but JE aroind 1.1 to 1.2 sq cm which indicates at least moderate stenosis. Mild MAC. Mild MR. Mild TR. Trace AI. Mildly dilated LA volume 40.5 mL/m? Plan: - Strict intake and output - Currently n.p.o., will place on fluid restriction 1500 cc - Daily weight - Hold GDMT, patient currently in shock - Cardiology consulted, appreciate recommendations #Infrarenal abdominal aortic aneurysm, 3.3 cm #Peripheral arterial disease #S/p Iliac Stent #Narrowing of left common iliac artery. Patient has aortoiliac stent, CT chest abdomen pelvis shows severe narrowing left common iliac, patient does have a aortic iliac stent. Bilateral pedal pulses palpated, no evidence of limb ischemia MONICO (05/01/2025): Right ankle/Brachial index 1.1 and Left ankle/Brachial index 1.1 - Outpatient follow-up #Hyperlipidemia Lipid panel 05/01/2025 shows triglycerides 67, cholesterol 127, LDL 81, HDL 33, patient on atorvastatin 80 mg at bedtime ? Hold currently n.p.o. Pulmonary No active issues, currently stable on room air # Chronic smoking history, 30 pack years Not an active smoker currently, history of 30 pack years, no lung nodules/lymphadenopathy noted on CTA - Outpatient screening as appropriate Gastrointestinal #Acute GI bleed, likely upper #Melena #Cirrhosis, on imaging, ?Decompensated cirrhosis #Transaminitis Patient has stools of dark stools, hemoglobin on discharge during last admission was around 14, presenting with hemoglobin of 8.8, on aspirin outpatient anticoagulation. Never formally diagnosed with cirrhosis. Currently low clinical suspicion, platelets within normal limits, low albumin 3.1, no evidence of acutely decompensated cirrhosis otherwise. 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 and underlying cardiac cirrhosis Abdomen US 05/01/25 shows: Cholelithiasis, Abnormal thickening of the gallbladder wall 0.6 cm, consider HIDA scan or MRCP follow-up, Common bile duct 0.7 cm no stones, Cirrhosis, fatty infiltration, Mild ascites Liver US 05/04/2025 RUQ US showed mild gallbladder wall thickened 0.5 cm Meld?Na score: 9 points, less than 2% estimated 90-day mortality Child-Moran class A: 6 points, Life expectancy 15 to 20 years, abdominal surgery perioperative mortality 10% Agustin?Blatchford bleeding score: 17 points, high risk GI bleed Plan: - Continue octreotide drip (06/24-, will discontinue if no evidence of esophageal varices - SBP prophylaxis: Ceftriaxone daily - Continue Protonix 40 twice daily - GI consulted, appreciate recommendations, scheduled for EGD in p.m. -Transfused 2 units PRBC, posttransfusion H&H stable at 9.5 - Follow CBC/CMP in a.m., follow INR in a.m. Renal/Genitourinary #Benign prostate hypertrophy Patient on Flomax outpatient, will hold, n.p.o. currently #Hyperchloremic normal anion gap acidosis, resolved Likely due to GI loss, patient is having dark melenic stools, 3 stools in the ED today. - Follow CMP in a.m. #Elevated BUN, hyperosmolality Elevated BUN 45, likely secondary to digestion of RBCs, high suspicion of upper GI bleed Endocrine No active problems Hematology #Leukocytosis WBC, 11,000 on presentation, likely reactive #Normocytic normochromic anemia Anemia secondary to blood loss underlying GI bleed - Follow CBC in a.m. - Transfuse if hemoglobin less than 7 Infectious Disease #Active hep C infection in May 2025 hepatitis panel shows positive hep C antibody, HCV viral load of 2.5 million HCV RNA quant and positive HCV RNA PCR - Follow-up with infectious disease outpatient, consider treatment, Child-Moran class A, overall low suspicion clinically of cirrhosis SBP prophylaxis: Ceftriaxone Blood cultures: Pending Urine culture: Pending Integumentary No active problems DVT prophylaxis: SCDs GI prophylaxis: Protonix twice daily Diet: N.p.o. Lines: Peripheral IV Code status: Full code Case discussed with Attending Physician Dr. Bg Sargent MD Internal Medicine PGY-2 Disclaimer: This note was dictated by speech recognition. Minor errors in turning machine operator may be present due to voice recognition software. Attending Provider Attestation/Addendum Patient seen and examined with the above resident, Dennis Sargent MD. I agree with the findings, assessment, and plan of care as documented except for any differences below. Patient admitted with hypovolemic/ hemorrhagic shock with GI source. On PPI and octereotide now. Despite low EF tolerating blood product resuscitation well and monitor closely for decompensation from overload. Coordinated with GI and pending EGD this evening, keep NPO for now. Coordinate care with cardiology prior to reestablishing GDMT, on hold for now. Total critical care time: I personally spent 40 minutes for review of physiologic parameters, directing plan of care, coordination of care with other specialists, and counseling patient at the bedside. This is exclusive of time spent teaching housestaff or performing any separate billable procedures. Critical care services required for hypovolemic shock, GI bleed, cirrhosis. He remained at risk for further morbdity and mortality warranting close monitoring and care only available in the ICU.
[2025-06-25] MEDS: OCTREOTIDE ACET INJ 1,000 MCG in SODIUM CHLORIDE 0.9% 100 ML 5.1 MCG IV (15:55)
--- NOTE | 2025-06-25 17:25 | SUR.PHASEI ---
Addendum entered by Keisha Dalal RN 06/25/25 18:27: patient coughing and suctioned on arrival to pacu Original Note: [id number] patient is sleepy and arousable, breathing unlabored, s/p egd by dr multani, report received from Carmina PRESSLEY, pt running ocreotide infusion that was started prior to procedure.
--- NOTE | 2025-06-25 18:13 | SUR.PHASEI ---
[id number] patient is awake, alert, breathing unlabored, patient transferred to tele room 263, bedside report given to Chikis PRESSLEY
--- NOTE | 2025-06-25 20:15 | ESPR_ITS ---
Documentation for date of: 06/25/25 Subjective Subjective Interval history: Patient was seen and examined at bedside. Pt states that he has had difficulty sleeping, feels lightheaded. Admits to SOB with doing yard work. Reports dysuria, states it stings when he urinates. Patient notes recent and unprecedented episode of charcoal-colored stools as elaborated below. Pt admits to nausea and vomited yesterday. Patient is scheduled for EGD today by gastroenterology. He is stable on room air currently. We will continue with octreotide gtt., although low clinical suspicion of cirrhosis overall, we will also continue with SBP prophylaxis and Protonix. Background: Mr. King is a 65-year-old male with past medical history of heart failure with reduced ejection fraction, EF 20 to 25% 03/2025, combined systolic and diastolic heart failure, mild to moderate AV stenosis, benign prostate hypertrophy, ?Cirrhosis, hepatitis C infection, infrarenal abdominal aortic aneurysm, peripheral arterial disease status post iliac stent, hyperlipidemia and former cocaine use and chronic smoker with 30 pack years who presented to [facility] emergency department on June 24, 2025 with a chief complaint of dark stools. Patient reported that his symptoms started about 2 days ago, reports having black stools for 1-1/2-day also complaining of abdominal pain at times, patient denies any nausea and vomiting currently, denies any hematemesis. Patient was recently discharged to rehab from [facility] on May 12, 2025 and was recently discharged home, patient has been taking his home medications including aspirin, not on any anticoagulation. Patient follows up outpatient with booking police officer Dr. Ernie Mcclelland, was recently seen outpatient in his office is on appropriate goal-directed medical therapy, reports adherence to medications outpatient, denies any recent drug use or smoking. Patient in ED noted to be tachycardic and hypotensive, was started on Levophed gtt. by ED physician. Pt was admitted to ICU consulted for the management of shock and marked tachycardia likely 2/2 active GI bleed. Patient received 2 unit PRBC overnight in ICU, this morning no concern of fluid overload status. Levophed was turned off at 8 PM posttransfusion. Exam Vital Signs Temp Pulse Resp BP Pulse Ox O2 Del Method O2 Flow Rate 97.4 F 116 H 24 H 105/54 L 98 Room Air 3 06/25/25 18:30 07/26/25 18:30 06/25/25 18:30 06/25/25 18:30 06/25/25 18:30 06/25/25 18:30 06/25/25 17:20 Narrative Exam Physical Exam General: Awake and in no acute distress. Conversational and non-toxic appearing. HEENT: Normocephalic, atraumatic, mucous membranes moist. Heart: Sinus tachycardia, positive murmur aortic area. Lungs: Clear to auscultation with no wheezing or crackles. Abdomen: Soft, nondistended, mild tenderness, positive bowel sounds. ?No guarding or rebound tenderness. Neurologic: Alert and oriented x3, no gross neurological deficit, and patient able to move all 4 extremities. Extremities: Trace edema. Amputated left foot second digit Skin: No rash or ecchymoses. Objective Labs 06/26/25 05:25 06/26/25 05:25 Labs: Laboratory Results - last 24 hr 06/24/25 06/24/25 06/25/25 08:43 20:16 04:24 WBC 9.6 RBC 3.24 L Hgb 9.7 L 9.5 L Hct 28.7 L 29.0 L MCV 90 MCH 29.3 MCHC 32.8 RDW Std Deviation 50.8 H Plt Count 169 D Neut % (Auto) 73 Lymph % (Auto) 16 [place] % (Auto) 8 Eos % (Auto) 2 Baso % (Auto) 1 Neut # (Auto) 7.0 Lymph # (Auto) 1.6 [place] # (Auto) 0.8 Eos # (Auto) 0.1 Baso # (Auto) 0.1 Immature Gran # (Auto) 0.05 H Absolute Nucleated RBC 0.00 Immature Gran % 1 H Nucleated RBC % 0 PT 12.6 H INR 1.2 Sodium 144 Potassium 4.5 Chloride 113 H Carbon Dioxide 23.4 Anion Gap 8 BUN 43 H Creatinine 1.1 Estim Creat Clear Calc 85.1 eGFR > 60 BUN/Creatinine Ratio 39 H Glucose 129 H Calculated Osmolality 299 H Calcium 8.5 Corrected Calcium 9.2 Phosphorus 4.3 Magnesium 2.0 Total Bilirubin 0.7 AST 76 H ALT 81 H Alkaline Phosphatase 63 Total Protein 5.4 L Albumin 3.1 L Globulin 2.3 Albumin/Globulin Ratio 1.3 Blood Type O Positive Antibody Screen NEGATIVE Crossmatch See Detail Blood Bank Wristband ID Yes Quality Measures Quality Measures sepsis Current suspected stage: ruled out Possible source: GI tract/intra- abdominal Blood cultures ordered: no Antibiotic ordered: Yes Assessment & Plan Assessment Current Active Medications: Generic Name Dose Route Start Last Admin Trade Name Freq PRN Reason Stop Dose Admin Acetaminophen 325 mg 06/24/25 12:54 Acetaminophen 325 Mg Tablet PO 07/24/25 12:53 Q6H PRN Pain (1-3) & Fever >100.4 Octreotide Acetate 1,000 mcg/ 102 mls @ 5.1 mls/hr 06/25/25 13:00 06/25/25 15:55 Sodium Chloride IV 06/29/25 12:59 50 mcg/hr .Q20H CHYNA 5.1 mls/hr Administration Protocol 50 MCG/HR Ceftriaxone Sodium/Dextrose 1 gm in 50 mls @ 100 mls/hr 06/24/25 12:59 06/25/25 08:45 Rocephin/D5w 1gm Iv Premix IV 07/01/25 12:58 100 mls/hr QDAY CHYNA Administration Ondansetron HCl 4 mg 06/24/25 12:56 Ondansetron Inj 2 Mg/Ml Inj 2 Ml IVP 07/24/25 12:55 Q6H PRN NAUSEA OR VOMITING Protocol Pantoprazole Sodium 40 mg 06/24/25 21:00 06/25/25 08:45 Pantoprazole Inj 40 Mg Vial IVP 07/24/25 20:59 40 mg Q12HR CHYNA Administration Plan Wood King is a 65M with MHx of HFrEF, EF 20 to 25% 03/2025, hepatitis C infection, infrarenal AAA, PAD s/p iliac stent, HLD, BPH who presented to the ED ([id number]) with a chief complaint of dark stools. ICU team consulted in setting of shock and marked tachycardia likely 2/2 active GI bleed. In ICU, BP was kept >65mmHg with Levophed 0.05. #Acute GI bleed, likely upper #Melena #Normocytic normochromic anemia (2/2 GI Bleed) Patient has stools of dark stools, hemoglobin on discharge during last admission was around 14, presenting with hemoglobin of 8.8, on aspirin outpatient anticoagulation. Agustin?Blatchford bleeding score: 17 points, high risk GI bleed Elevated BUN 45, likely secondary to digestion of RBCs, high suspicion of upper GI bleed Plan: - Continue octreotide drip (06/24-, will discontinue if no evidence of esophageal varices - SBP prophylaxis: Ceftriaxone daily - Continue Protonix 40 twice daily - GI consulted, appreciate recommendations, scheduled for EGD in p.m. -Transfused 2 units PRBC, posttransfusion H&H stable at 9.5 - Follow CBC/CMP in a.m., follow INR in a.m. #UTI Pt reports dysuria. UA was positive for turbid urine with 1+ protein, leukocyte esterase, RBC 18, WBC 723, no bacteria. ? Blood cultures: Pending ? Urine culture: Pending #HFrEF, EF 20-25% #Combined systolic and diastolic heart failure #Mild to moderate AV stenosis Echo (): Dialated cardiomyopathy. Dilated LV. Severe systolic dysfunction. Severe global hypokinesis. Estimated EF 20-30% %. Grade 2 diastolic dysfunction. Mild RV dilatation. Mild RV systolic dysufnction. Mild to modertae AV stenosis. Mild MAC. Mild MR. Mild TR. Trace AI. Mildly dilated LA volume 40.5 mL/m? Plan: - Strict intake and output - Currently n.p.o., will place on fluid restriction 1500 cc - Daily weight - On GDMT outpatient, follows up with booking police officer Dr. Ernie Mcclelland - Cardiology consulted, appreciate recommendations #Infrarenal abdominal aortic aneurysm, 3.3 cm #Peripheral arterial disease #Iliac Stent b/l #Narrowing of left common iliac artery. (findings of CT chest and abdomen) #Active hep C infection #Transaminitis in May 2025 hepatitis panel shows positive hep C antibody, HCV viral load of 2.5 million. 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 HELD currently n.p.o. #Benign prostate hypertrophy Patient on Flomax outpatient, will hold, n.p.o. currently # Chronic smoking history, 30 pack years Not an active smoker currently, history of 30 pack years, no lung nodules/lymphadenopathy noted on CTA - Outpatient screening as appropriate #Hypovolemic/hemorrhagic shock, resolved #Hyperchloremic normal anion gap acidosis, resolved Health Maintanance: DVT prophylaxis: SCDs GI prophylaxis: Protonix twice daily Diet: N.p.o. Lines: Peripheral IV Code status: Full code This case was discussed with my attending physician, Dr. Sevilla. Tom Alcocer DO PGY I Attending Provider Attestation/Addendum I have discussed and was present for the essential components of the history, physical examination, diagnosis, and treatment plan with the resident. I agree with the patient's care as documented by the resident and amended herein by me. Jorge Luis Sevilla DO. Although this document has been carefully reviewed, there may still be some phonetic and other typographical errors. These errors are purely grammatical due to imperfections in the software program and should not be construed in any way to compromise the substance of the patient's medical care during this visit.
[2025-06-26] VITALS (9 sets, daily range): BP systolic 95–110; BP diastolic 61–72; PULSE 90–119; RESP 15–26; TEMP 36.1–36.4; O2SAT 96–97; BMI 13.0
[2025-06-26 06:01] LABS: Basophils # (Auto) 0.1 Thou/mm3 (0.0-0.2); Basophils % (Auto) 1 % (0-2.5); Eosinophils # (Auto) 0.3 Thou/mm3 (0.0-0.5); Eosinophils % (Auto) 3 % (0-10); Hematocrit 27.6 % (41.0-53.0); Hemoglobin 9.2 g/dL (13.5-16.0); Immature Granulocytes Auto 0.05 Thou/mm3 (0.00-0.00); Lymphocytes # (Auto) 1.3 Thou/mm3 (1.0-4.8); Lymphocytes % (Auto) 13 % (10-50); Mean Corpuscular HGB Conc 33.3 g/dl (31.0-37.0); Mean Corpuscular Hemoglobin 30.1 pg (25.0-35.0); Mean Corpuscular Volume 90 fL (80-100); Monocytes # (Auto) 0.7 Thou/mm3 (0.0-0.8); Monocytes % (Auto) 7 % (0-12); Neutrophils # (Auto) 7.8 Thou/mm3 (1.8-7.7); Neutrophils % (Auto) 77 % (37-80); Nucleated Red Blood Cell # 0.00 Thou/mm3 (0.00-0.00); Nucleated Red Blood Cell % 0 /100 WBC (0); Platelet Count 125 Thou/mm3 (140-440); RDW Standard Deviation 50.9 fL (35.1-43.9); Red Blood Count 3.06 Miln/mm3 (4.50-5.90); White Blood Count 10.2 Thou/mm3 (3.8-10.6)
[2025-06-26 06:18] LABS: Alanine Aminotransferase 69 U/L (10-49); Albumin, Serum 3.2 gm/dL (3.4-4.8); Albumin/Globulin Ratio 1.4 (1.2-2.2); Alkaline Phosphatase 62 U/L (46-116); Anion Gap 9 (7-16); Aspartate Amino Transferase 84 U/L (0-34); BUN/Creatinine Ratio 31 Ratio (12-20); Bilirubin,Total 0.7 mg/dL (0.3-1.2); Blood Urea Nitrogen 31 mg/dL (9-23); Calcium 8.4 mg/dL (8.3-10.6); Calcium (Corrected) 9.0 mg/dL (8.5-10.1); Carbon Dioxide 24.5 mMol/L (20.0-31.0); Chloride 111 mMol/L (98-107); Creatinine (Component) 1.0 mg/dL (0.6-1.3); Estimated Creatinine Clearance 93.6 mL/min (>60); Globulin 2.3 gm/dL (2.3-3.5); Glucose 131 mg/dL (74-106); Magnesium 1.6 mg/dL (1.6-2.6); Osmolality,Calculated 295 (275-295); Phosphorous 3.7 mg/dL (2.4-5.1); Potassium 4.2 mMol/L (3.4-5.1); Sodium 144 mMol/L (136-145); Total Protein 5.5 gm/dL (5.7-8.2); eGFR > 60 See Note
[2025-06-26 06:20] LABS: INR 1.1 (0.9-1.3); Prothrombin Time 12.2 Seconds (9.0-12.2)
[2025-06-26] MEDS: Magnesium Sulfate 4 GM Ivpb 4 GM/50 ML BAG IV (08:40)
--- NOTE | 2025-06-26 12:23 | PC.SS ---
SS met with patient who was emotional over going home. Patient states he lives alone and he's afraid he'll come back to hospital. Patient was previously at [facility] and then discharged home and was only home 2 weeks before he was admitted to hospital. Patient would prefer SNF. SS updated physician team that we need a PT eval. for prior auth. Order to be placed. SS also discussed with patient [facility] and [facility] for further resources when he does go home. SS will provide these resources when he is ready for d/c. Tentative d/c plan is to d/c to SNF, preferably not [facility] per patient.
[2025-06-26] MEDS: METOPROLOL SUCCINATE XL 25 MG TABCR PO (12:28)
--- NOTE | 2025-06-26 13:06 | PD.RESPRO ---
Documentation for date of: 06/26/25 Subjective Subjective Interval history: Patient was seen and examined at bedside. Pt states that he has had difficulty sleeping, feels lightheaded. He feels anxious over his escalating medical conditions, and the new involvement of the liver and GI tracts. Reports dysuria, states it stings when he urinates, and is hard to pass stool and he needs to puch excessively. Stools are still black, but kiln furniture saw tender than what thy were before, with some brown present. Exam Vital Signs Temp Pulse Resp BP Pulse Ox O2 Del Method O2 Flow Rate 97.5 F 93 20 98/61 97 Room Air 3 06/26/25 11:55 06/26/25 12:28 06/26/25 11:55 06/26/25 12:28 06/26/25 11:55 06/26/25 11:55 06/25/25 17:20 Narrative Exam Physical Exam General: Awake and in no acute distress. Conversational and non-toxic appearing. HEENT: Normocephalic, atraumatic, mucous membranes moist. Heart: Sinus tachycardia, positive murmur aortic area. Lungs: Clear to auscultation with no wheezing or crackles. Abdomen: Soft, mild distension, mild tenderness, positive bowel sounds. ?No guarding or rebound tenderness. Percussion dull. Neurologic: Alert and oriented x3, no gross neurological deficit, and patient able to move all 4 extremities. Extremities: Trace edema. Amputated left foot second digit Skin: No rash or ecchymoses. Objective Labs 06/26/25 05:25 06/26/25 05:25 Labs: Laboratory Results - last 24 hr 06/26/25 05:25 WBC 10.2 RBC 3.06 L Hgb 9.2 L Hct 27.6 L MCV 90 MCH 30.1 MCHC 33.3 RDW Std Deviation 50.9 H Plt Count 125 L D Neut % (Auto) 77 Lymph % (Auto) 13 [place] % (Auto) 7 Eos % (Auto) 3 Baso % (Auto) 1 Neut # (Auto) 7.8 H Lymph # (Auto) 1.3 [place] # (Auto) 0.7 Eos # (Auto) 0.3 Baso # (Auto) 0.1 Immature Gran # (Auto) 0.05 H Absolute Nucleated RBC 0.00 Immature Gran % 1 H Nucleated RBC % 0 PT 12.2 INR 1.1 Sodium 144 Potassium 4.2 Chloride 111 H Carbon Dioxide 24.5 Anion Gap 9 BUN 31 H Creatinine 1.0 Estim Creat Clear Calc 93.6 eGFR > 60 BUN/Creatinine Ratio 31 H Glucose 131 H Calculated Osmolality 295 Calcium 8.4 Corrected Calcium 9.0 Phosphorus 3.7 Magnesium 1.6 Total Bilirubin 0.7 AST 84 H ALT 69 H Alkaline Phosphatase 62 Total Protein 5.5 L Albumin 3.2 L Globulin 2.3 Albumin/Globulin Ratio 1.4 Quality Measures Quality Measures sepsis Current suspected stage: ruled out Possible source: GI tract/intra-abdominal Blood cultures ordered: no Antibiotic ordered: Yes Assessment & Plan Assessment Current Active Medications: Generic Name Dose Route Start Last Admin Trade Name Freq PRN Reason Stop Dose Admin Acetaminophen 325 mg 06/24/25 12:54 Acetaminophen 325 Mg Tablet PO 07/24/25 12:53 Q6H PRN Pain (1-3) & Fever >100.4 Metoprolol Succinate 25 mg 06/26/25 10:00 06/26/25 12:28 Metoprolol Succinate Xl 25 Mg Tabcr PO 07/26/25 09:59 25 mg QDAY CHYNA Administration Ondansetron HCl 4 mg 06/24/25 12:56 Ondansetron Inj 2 Mg/Ml Inj 2 Ml IVP 07/24/25 12:55 Q6H PRN NAUSEA OR VOMITING Protocol Pantoprazole Sodium 40 mg 06/24/25 21:00 06/26/25 08:40 Pantoprazole Inj 40 Mg Vial IVP 07/24/25 20:59 40 mg Q12HR CHYNA Administration Plan Wood King is a 65M with MHx of HFrEF, EF 20 to 25% 03/2025, hepatitis C infection, infrarenal AAA, PAD s/p iliac stent, HLD, BPH who presented to the ED ([id number]) with a chief complaint of dark stools. ICU team consulted in setting of shock and marked tachycardia likely 2/2 active GI bleed. In ICU, BP was kept >65mmHg with Levophed 0.05. #Acute GI bleed, likely upper #Melena #Normocytic normochromic anemia (2/2 GI Bleed) Patient has stools of dark stools, hemoglobin on discharge during last admission was around 14, presenting with hemoglobin of 8.8, on aspirin outpatient anticoagulation. Agustin?Blatchford bleeding score: 17 points, high risk GI bleed Elevated BUN 45, likely secondary to digestion of RBCs, high suspicion of upper GI bleed EGD ([id number]): Esophagitis, Gastritis, and duodenal ulcer in context of erythematous duodenopathy. Plan: + Discontinue octreotide in the light of no esophageal varices on EGD (06/24-) - SBP prophylaxis: Ceftriaxone daily - Continue Protonix 40mg bid - per GI, anticoagulation could be resumed. - 2g Na diet - Follow CBC/CMP in a.m., follow INR in a.m. Transfused 2 units PRBCat ICU, posttransfusion H&H stable at 9.5 #HFrEF, EF 20-25% #Combined systolic and diastolic heart failure #Mild to moderate AV stenosis Patient on GDMT at home: metoprolol succinate XR 25mg, losartan 25mg, spirinolactone 25mg, and dapagliflozin 10mg Qday Echo (): Dialated cardiomyopathy. Dilated LV. Severe systolic dysfunction. Severe global hypokinesis. Estimated EF 20-30% %. Grade 2 diastolic dysfunction. Mild RV dilatation. Mild RV systolic dysufnction. Mild to modertae AV stenosis. Mild MAC. Mild MR. Mild TR. Trace AI. Mildly dilated LA volume 40.5 mL/m? Plan: - Strict intake and output - Keep on fluid restriction 1500 cc - Daily weight - On GDMT outpatient, follows up with washer meat Dr. Ernie Mcclelland - Cardiology consulted, recommends ICD placement, and resuming GDMT as tolerated. - Resume metoprolol for now; rest of GDMT on hold in the setting of soft BP currently #Infrarenal abdominal aortic aneurysm, 3.3 cm #Peripheral arterial disease #AortoIliac Stent b/l #Narrowing of left common iliac artery. (findings of CT chest and abdomen) Patient on Aspirin 81mg and atorvastatin 80mg Qday. ASA held in the setting of a duodenal ulcer prone to bleeding. #Active hep C infection #Transaminitis in May 2025 hepatitis panel shows positive hep C antibody, HCV viral load of 2.5 million. 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 Improved AST 84, and ALT 69 (06/23) - Follow-up with infectious disease outpatient #Hyperlipidemia TG 67, Ch 127, LDL 81, HDL 33 (05/01/2025) Resumed patient on atorvastatin 80 mg at bedtime. #Benign prostate hypertrophy Resumed patient on Flomax 0.4mg. # Chronic smoking history, 30 pack years Not an active smoker currently, history of 30 pack years, no lung nodules/lymphadenopathy noted on CTA - Outpatient screening as appropriate #Hypovolemic/hemorrhagic shock, resolved #Hyperchloremic normal anion gap acidosis, resolved #UTI, ruled out Pt reports dysuria. UA was positive for turbid urine with 1+ protein, leukocyte esterase, RBC 18, WBC 723, no bacteria. ? MRSA screen: pending ? Blood cultures: negative after 48h ? Urine culture: negative (06/24) Health Maintanance: DVT prophylaxis: SCDs GI prophylaxis: Protonix twice daily BM: Miralax PO 17mg Qday Diet: 2g sodium Lines: Peripheral IV Code status: Full code This case was discussed with my attending physician, Dr. Sevilla. Tom Alcocer DO PGY I Attending Provider Attestation/Addendum I have discussed and was present for the essential components of the history, physical examination, diagnosis, and treatment plan with the resident. I agree with the patient's care as documented by the resident and amended herein by me. Jorge Luis Sevilla DO. Although this document has been carefully reviewed, there may still be some phonetic and other typographical errors. These errors are purely grammatical due to imperfections in the software program and should not be construed in any way to compromise the substance of the patient's medical care during this visit. Patient seen and evaluated this AM. In short, 65-year-old male with a significant past medical history of HFrEF with an EF of 20% per echo in March 2025, AV stenosis, BPH, hepatitis C and possible cirrhosis with a mild infrarenal abdominal aortic aneurysm and PAD with stent placement, [id number] smoking history and former cocaine user, presented to the ED with dark, melanotic stools which began approximately 2 days prior to admission. Patient was subsequently admitted to that time to the ICU due to hypovolemic shock secondary to presumed blood loss. Patient was transfused at that time. Patient subsequently stabilized, was downgraded to the telemetry floor on 06/25, EGD also performed on 06/25 which demonstrated esophagitis, gastritis and a duodenal ulcer with no signs of bleeding at the time of procedure. Recommended to continue low-sodium peptic ulcer diet with Protonix 40 mg daily and avoidance of NSAIDs. Biopsy results are also pending. Antibiotics and octreotide have been discontinued. Patient still feels a bit weak, will obtain physical therapy evaluation on Wednesday 06/27. Patient originally was from SNF however once to go back home with home health however we will see what physical therapy says. Cardiology was initially consulted on on 06/24 as well, will continue heart failure measures and add back GDMT as tolerated, today we will add back his metoprolol succinate however his blood pressure has been soft and he is still anemic,hence we will hold the rest of his medications for now to include his aspirin in setting of the ulcer. Will continue to monitor closely
[2025-06-26] MEDS: TAMSULOSIN HCL 0.4 MG CAPSULE PO (14:57)
[2025-06-26] MEDS: POLYETHYLENE GLYCOL 17 GM PACKET PO (15:00)
--- NOTE | 2025-06-26 19:14 | PD.IMPROG ---
Documentation for date of: 06/26/25 Subjective Subjective Interval history: Patient evaluated Hemoglobin hematocrit 9.2 and 27.6 Exam Vital Signs Temp Pulse Resp BP Pulse Ox O2 Del Method O2 Flow Rate 97.5 F 99 15 104/72 96 Room Air 3 06/26/25 15:37 06/26/25 16:00 06/26/25 15:37 06/26/25 15:37 06/26/25 15:37 06/26/25 15:37 06/25/25 17:20 Objective Labs 06/26/25 05:25 06/26/25 05:25 Labs: Laboratory Results - last 24 hr 06/26/25 05:25 WBC 10.2 RBC 3.06 L Hgb 9.2 L Hct 27.6 L MCV 90 MCH 30.1 MCHC 33.3 RDW Std Deviation 50.9 H Plt Count 125 L D Neut % (Auto) 77 Lymph % (Auto) 13 [place] % (Auto) 7 Eos % (Auto) 3 Baso % (Auto) 1 Neut # (Auto) 7.8 H Lymph # (Auto) 1.3 [place] # (Auto) 0.7 Eos # (Auto) 0.3 Baso # (Auto) 0.1 Immature Gran # (Auto) 0.05 H Absolute Nucleated RBC 0.00 Immature Gran % 1 H Nucleated RBC % 0 PT 12.2 INR 1.1 Sodium 144 Potassium 4.2 Chloride 111 H Carbon Dioxide 24.5 Anion Gap 9 BUN 31 H Creatinine 1.0 Estim Creat Clear Calc 93.6 eGFR > 60 BUN/Creatinine Ratio 31 H Glucose 131 H Calculated Osmolality 295 Calcium 8.4 Corrected Calcium 9.0 Phosphorus 3.7 Magnesium 1.6 Total Bilirubin 0.7 AST 84 H ALT 69 H Alkaline Phosphatase 62 Total Protein 5.5 L Albumin 3.2 L Globulin 2.3 Albumin/Globulin Ratio 1.4 Impressions Impression: Severe duodenitis Shallow duodenal ulcer Continue to monitor CBC Patient can be anticoagulated Assessment & Plan A&P Narrative # Melena # Posthemorrhagic anemia Plan Agree with the blood transfusion Let the patient settle down Consent obtained for fiberoptic esophagogastroduodenoscopy with possible biopsy possible therapeutic intervention under intravenous moderate sedation scheduled for tomorrow IV Protonix N.p.o. midnight tonight except p.o. meds Other medical problems include Systolic and diastolic congestive heart failure ejection fraction somewhere close to 20% Moderate aortic stenosis BPH Hepatitis C Abdominal aortic aneurysm Thank you very much for the opportunity to participate in the care of this patient Time Spent With Patient Time: Total time spent is greater than 50% in coordination of care (as documented) at patient's floor/unit and/or counseling patient:
[2025-06-26] MEDS: ATORVASTATIN CALCIUM 20 MG TABLET 80 MG PO (20:11)
[2025-06-27] VITALS (7 sets, daily range): BP systolic 91–109; BP diastolic 54–77; PULSE 82–104; RESP 14–24; TEMP 35.9–36.7; O2SAT 97–100; BMI 29.9; BMI 30.1
[2025-06-27 06:07] LABS: Basophils # (Auto) 0.1 Thou/mm3 (0.0-0.2); Basophils % (Auto) 1 % (0-2.5); Eosinophils # (Auto) 0.3 Thou/mm3 (0.0-0.5); Eosinophils % (Auto) 4 % (0-10); Hematocrit 26.1 % (41.0-53.0); Immature Granulocytes Auto 0.07 Thou/mm3 (0.00-0.00); Lymphocytes # (Auto) 1.1 Thou/mm3 (1.0-4.8); Lymphocytes % (Auto) 14 % (10-50); Mean Corpuscular HGB Conc 33.0 g/dl (31.0-37.0); Mean Corpuscular Hemoglobin 30.3 pg (25.0-35.0); Mean Corpuscular Volume 92 fL (80-100); Monocytes # (Auto) 0.7 Thou/mm3 (0.0-0.8); Monocytes % (Auto) 9 % (0-12); Neutrophils # (Auto) 5.4 Thou/mm3 (1.8-7.7); Neutrophils % (Auto) 72 % (37-80); Nucleated Red Blood Cell # 0.00 Thou/mm3 (0.00-0.00); Nucleated Red Blood Cell % 0 /100 WBC (0); Platelet Count 122 Thou/mm3 (140-440); RDW Standard Deviation 51.0 fL (35.1-43.9); Red Blood Count 2.84 Miln/mm3 (4.50-5.90); White Blood Count 7.6 Thou/mm3 (3.8-10.6)
[2025-06-27 06:15] LABS: INR 1.1 (0.9-1.3); Prothrombin Time 11.8 Seconds (9.0-12.2)
[2025-06-27 06:28] LABS: Alanine Aminotransferase 60 U/L (10-49); Albumin, Serum 3.2 gm/dL (3.4-4.8); Albumin/Globulin Ratio 1.5 (1.2-2.2); Alkaline Phosphatase 71 U/L (46-116); Anion Gap 10 (7-16); Aspartate Amino Transferase 66 U/L (0-34); BUN/Creatinine Ratio 23 Ratio (12-20); Bilirubin,Total 0.5 mg/dL (0.3-1.2); Blood Urea Nitrogen 23 mg/dL (9-23); Calcium 8.1 mg/dL (8.3-10.6); Calcium (Corrected) 8.7 mg/dL (8.5-10.1); Carbon Dioxide 25.5 mMol/L (20.0-31.0); Chloride 110 mMol/L (98-107); Creatinine (Component) 1.0 mg/dL (0.6-1.3); Estimated Creatinine Clearance 94.1 mL/min (>60); Globulin 2.2 gm/dL (2.3-3.5); Glucose 129 mg/dL (74-106); Magnesium 1.8 mg/dL (1.6-2.6); Osmolality,Calculated 294 (275-295); Phosphorous 3.8 mg/dL (2.4-5.1); Potassium 4.2 mMol/L (3.4-5.1); Sodium 145 mMol/L (136-145); Total Protein 5.4 gm/dL (5.7-8.2); eGFR > 60 See Note
[2025-06-27 06:32] LABS: Hemoglobin 8.6 g/dL (13.5-16.0)
[2025-06-27] MEDS: TAMSULOSIN HCL 0.4 MG CAPSULE PO (08:05)
[2025-06-27] MEDS: METOPROLOL SUCCINATE XL 25 MG TABCR PO (08:06)
[2025-06-27] MEDS: POLYETHYLENE GLYCOL 17 GM PACKET PO (08:07)
--- NOTE | 2025-06-27 08:57 | PC.SS ---
Addendum entered by Freya Trotter 06/27/25 16:16: Update: Patient has only been accepted at [facility] as all local faclities do not have male beds. Patient is agreeable to [facility]. Pending authorization. All clinicals have been sent. Pending auth Original Note: Follow up note: Patient still bleeding. Possible colonoscopy per physician team. D/c plan: short term rehab. SS submitted referral on noah. PASRR to be completed. PT eval completed
[2025-06-27] MEDS: Magnesium Sulfate 4 GM Ivpb 4 GM/50 ML BAG IV (09:20)
[2025-06-27] MEDS: NA SU/NAHCO3/KC/PEG (Golytely) 4,000 ML BTL 4000 ML PO (11:44)
--- NOTE | 2025-06-27 13:46 | ESPR_ITS ---
<Statement entered by Jamel Guevara MD - 06/28/25 21:57> A 65-year-old male with a complex medical history including HFrEF (EF 20?25%), hepatitis C, infrarenal AAA, PAD s/p iliac stent, hyperlipidemia, and BPH presented on June 24, 2025, with melena and signs of hemodynamic instability, likely due to an upper GI bleed. In the ICU, he required Levophed to maintain MAP >65 mmHg. Hemoglobin dropped from 9.2 to 8.6, and he was transfused 2 units of PRBC, stabilizing his H&H at 9.5. EGD on June 25 showed esophagitis, gastritis, and a duodenal ulcer with erythematous duodenopathy. A colonoscopy is pending. Management includes Ceftriaxone for SBP prophylaxis, Protonix BID, a 2g sodium diet, and serial labs. Concurrently, his known HFrEF with severe systolic dysfunction and diastolic dysfunction was addressed with fluid restriction (1.5 L/day), daily weights, and resumption of metoprolol, while other GDMT is on hold due to low BP. Cardiology recommends ICD placement and reinitiation of full GDMT as tolerated. He follows with Dr. Ernie Mcclelland for heart failure management. I?ve reviewed the note and agree with the resident's assessment and plan, with the exceptions outlined above. I personally went over the labs, imaging, home medications, and prior records, and examined the patient. The case was also reviewed with the attending physician. Please note: this document was transcribed using voice recognition technology; minor inaccuracies may be present. Jamel Guevara DO PGY II Documentation for date of: 06/27/25 Subjective Subjective Interval history: Patient was seen and examined at bedside. Pt states that stool had tinge of bright red yesterday. The original black color has lightened though. Has not had a BM yet to see if it continues. Reports dysuria, states it stings when he urinates, and is hard to pass stool and he needs to push excessively. He has had difficulty sleeping, feels lightheaded. He feels anxious over his escalating medical conditions, and the new involvement of the liver and GI tracts. Exam Vital Signs Temp Pulse Resp BP Pulse Ox O2 Del Method O2 Flow Rate 98.0 F 85 16 91/54 L 98 Room Air 3 06/27/25 12:00 06/27/25 12:00 06/27/25 12:00 06/27/25 12:00 06/27/25 12:00 06/27/25 12:00 06/25/25 17:20 Narrative Exam Physical Exam General: Awake and in no acute distress. Conversational and non-toxic appearing. HEENT: Normocephalic, atraumatic, mucous membranes moist. Heart: Sinus tachycardia, positive murmur aortic area. Lungs: Clear to auscultation with no wheezing or crackles. Abdomen: Soft, mild distension, mild tenderness, positive bowel sounds. ?No guarding or rebound tenderness. Percussion dull. Neurologic: Alert and oriented x3, no gross neurological deficit, and patient able to move all 4 extremities. Extremities: Trace edema. Amputated left foot second digit Skin: No rash or ecchymoses. Objective Labs 06/28/25 05:27 06/28/25 05:27 Labs: Laboratory Results - last 24 hr 06/24/25 06/27/25 08:43 05:37 WBC 7.6 RBC 2.84 L Hgb 8.6 L Hct 26.1 L MCV 92 MCH 30.3 MCHC 33.0 RDW Std Deviation 51.0 H Plt Count 122 L Neut % (Auto) 72 Lymph % (Auto) 14 [place] % (Auto) 9 Eos % (Auto) 4 Baso % (Auto) 1 Neut # (Auto) 5.4 Lymph # (Auto) 1.1 [place] # (Auto) 0.7 Eos # (Auto) 0.3 Baso # (Auto) 0.1 Immature Gran # (Auto) 0.07 H Absolute Nucleated RBC 0.00 Immature Gran % 1 H Nucleated RBC % 0 PT 11.8 INR 1.1 Sodium 145 Potassium 4.2 Chloride 110 H Carbon Dioxide 25.5 Anion Gap 10 BUN 23 Creatinine 1.0 Estim Creat Clear Calc 94.1 eGFR > 60 BUN/Creatinine Ratio 23 H Glucose 129 H Calculated Osmolality 294 Calcium 8.1 L Corrected Calcium 8.7 Phosphorus 3.8 Magnesium 1.8 Total Bilirubin 0.5 AST 66 H ALT 60 H Alkaline Phosphatase 71 Total Protein 5.4 L Albumin 3.2 L Globulin 2.2 L Albumin/Globulin Ratio 1.5 Crossmatch See Detail Quality Measures Quality Measures sepsis Current suspected stage: ruled out Possible source: GI tract/intra- abdominal Blood cultures ordered: no Antibiotic ordered: No Assessment & Plan Assessment Current Active Medications: Generic Name Dose Route Start Last Admin Trade Name Freq PRN Reason Stop Dose Admin Acetaminophen 325 mg 06/24/25 12:54 Acetaminophen 325 Mg Tablet PO 07/24/25 12:53 Q6H PRN Pain (1-3) & Fever >100.4 Atorvastatin Calcium 80 mg 06/26/25 21:00 06/26/25 20:11 Atorvastatin Calcium 20 Mg Tablet PO 07/26/25 20:59 80 mg HS CHYNA Administration Metoprolol Succinate 25 mg 06/26/25 10:00 06/27/25 08:06 Metoprolol Succinate Xl 25 Mg Tabcr PO 07/26/25 09:59 25 mg QDAY CHYNA Administration Ondansetron HCl 4 mg 06/24/25 12:56 Ondansetron Inj 2 Mg/Ml Inj 2 Ml IVP 07/24/25 12:55 Q6H PRN NAUSEA OR VOMITING Protocol Pantoprazole Sodium 40 mg 06/27/25 09:00 06/27/25 08:06 Pantoprazole Inj 40 Mg Vial IVP 07/27/25 08:59 40 mg Q12HR CHYNA Administration Polyethylene Glycol 17 gm 06/26/25 15:00 06/27/25 08:07 Polyethylene Glycol 17 Gm Packet PO 07/26/25 14:59 17 gm QDAY CHYNA Administration Tamsulosin HCl 0.4 mg 06/26/25 14:45 06/27/25 08:05 Tamsulosin Hcl 0.4 Mg Capsule PO 07/26/25 14:44 0.4 mg QDAY CHYNA Administration Plan Wood King is a 65M with MHx of HFrEF, EF 20 to 25% 03/2025, hepatitis C infection, infrarenal AAA, PAD s/p iliac stent, HLD, BPH who presented to the ED ([id number]) with a chief complaint of dark stools. ICU team consulted in setting of shock and marked tachycardia likely 2/2 active GI bleed. In ICU, BP was kept >65mmHg with Levophed 0.05. #Acute GI bleed, likely upper #Melena #Normocytic normochromic anemia (2/2 GI Bleed) #Weakness Patient reported newfound tinges of blood on stool that is lightening from original black otherwise. Hgb 8.6 today and down from yesterday 9.2. [place] bleeding score: 17 points, high risk GI bleed EGD ([id number]): Esophagitis, Gastritis, and duodenal ulcer in context of erythematous duodenopathy. Plan: +pending colonoscopy by Dr Alanis - PT evaluation - SBP prophylaxis: Ceftriaxone daily - Continue Protonix 40mg bid - 2g Na diet - Follow CBC/CMP in a.m., follow INR in a.m. Transfused 2 units PRBCat ICU, posttransfusion H&H stable at 9.5 #HFrEF, EF 20-25% #Combined systolic and diastolic heart failure #Mild to moderate AV stenosis Patient on GDMT at home: metoprolol succinate XR 25mg, losartan 25mg, spirinolactone 25mg, and dapagliflozin 10mg Qday Echo (): Dialated cardiomyopathy. Dilated LV. Severe systolic dysfunction. Severe global hypokinesis. Estimated EF 20-30% %. Grade 2 diastolic dysfunction. Mild RV dilatation. Mild RV systolic dysufnction. Mild to modertae AV stenosis. Mild MAC. Mild MR. Mild TR. Trace AI. Mildly dilated LA volume 40.5 mL/m? Plan: - Strict intake and output - Keep on fluid restriction 1500 cc - Daily weight - On GDMT outpatient, follows up with scow derrick operator Dr. Ernie Mcclelland - Cardiology consulted, recommends ICD placement, and resuming GDMT as tolerated. - Resume metoprolol for now; rest of GDMT on hold in the setting of soft BP currently #Infrarenal abdominal aortic aneurysm, 3.3 cm #Peripheral arterial disease #AortoIliac Stent b/l #Narrowing of left common iliac artery. (findings of CT chest and abdomen) Patient on Aspirin 81mg and atorvastatin 80mg Qday. ASA held in the setting of a duodenal ulcer prone to bleeding. #Active hep C infection #Transaminitis in May 2025 hepatitis panel shows positive hep C antibody, HCV viral load of 2.5 million. 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 Improved AST 84, and ALT 69 (06/23) - Follow-up with infectious disease outpatient #Hyperlipidemia TG 67, Ch 127, LDL 81, HDL 33 (05/01/2025) Resumed patient on atorvastatin 80 mg at bedtime. #Benign prostate hypertrophy Resumed patient on Flomax 0.4mg. # Chronic smoking history, 30 pack years Not an active smoker currently, history of 30 pack years, no lung nodules/lymphadenopathy noted on CTA - Outpatient screening as appropriate #Hypovolemic/hemorrhagic shock, resolved #Hyperchloremic normal anion gap acidosis, resolved #UTI, ruled out Pt reports dysuria. UA was positive for turbid urine with 1+ protein, leukocyte esterase, RBC 18, WBC 723, no bacteria. ? MRSA screen: pending ? Blood cultures: negative after 48h ? Urine culture: negative (06/24) Health Maintanance: DVT prophylaxis: SCDs GI prophylaxis: Protonix twice daily BM: Miralax PO 17mg Qday Diet: 2g sodium Lines: Peripheral IV Code status: Full code This case was discussed with my attending physician, Dr. Sevilla. Tom Alcocer, DO PGY I Attending Provider Attestation/Addendum 65-year-old male patient with chronic low ejection heart failure admitted for GI bleed. EGD on June 25 showed esophagitis, antral gastritis and duodenal ulcer. Patient has history of smoking, hepatitis C infection, peripheral vascular disease, AAA.Patient is pending additional lower endoscopic workup by Dr. Alanis. Patient is on proton pump inhibitor. He is alert and oriented, normotensive. Discussed with housestaff.
--- NOTE | 2025-06-27 18:21 | PD.RESPRO ---
Documentation for date of: 06/27/25 Subjective Subjective Interval history: The patient was seen and examined at the bedside this morning. He reported doing well. He denied any chest pain, SOB, orthopnea or PND, palpitations, but admitted mild lightheadedness. 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 Vitals were fairly stable with soft blood pressure of 102/65, heart rate in 80s, saturating 98% on room air. Labs were significant for hemoglobin 8.6, platelet 122, potassium 4.2, BUN 23, creatinine 1.0, calcium 8.7, magnesium 1.8, AST/ALT 66/60, albumin 3.2. Recommended to start the patient on Plavix 75 Mg daily, as anticoagulation has been cleared by GI, and needs to be in DAPT due to recent iliac stent. We will add aspirin later. Continue with metoprolol succinate 25 Mg daily and Continue with atorvastatin 80 Mg daily. Patient will benefit from ICD placement outpatient if does not improve with GDMT. Exam Vital Signs Temp Pulse Resp BP Pulse Ox O2 Del Method O2 Flow Rate 98.0 F 91 16 91/54 L 98 Room Air 3 06/27/25 12:00 06/27/25 16:00 06/27/25 12:00 06/27/25 12:00 06/27/25 12:06/27/25 12:00 06/25/25 17:20 Narrative Exam General: No acute distress, Alert and Oriented x 3 HEENT: Moist mucous membranes, oropharynx clear Neck: Supple, No masses, No JVD CVS: S1S2 Regular rate and rhythm, No murmurs, rubs or gallops Lungs: Clear to auscultation with no accessory use, no wheeze no rhonchi Abd: Soft, NT/ND, +BS, no organomegaly Ext: No edema, warm and well perfused Skin: No rash Psych: Appropriate mood and affect Objective Labs 06/27/25 05:37 06/27/25 05:37 Labs: Laboratory Results - last 24 hr 06/24/25 06/27/25 08:43 05:37 WBC 7.6 RBC 2.84 L Hgb 8.6 L Hct 26.1 L MCV 92 MCH 30.3 MCHC 33.0 RDW Std Deviation 51.0 H Plt Count 122 L Neut % (Auto) 72 Lymph % (Auto) 14 [place] % (Auto) 9 Eos % (Auto) 4 Baso % (Auto) 1 Neut # (Auto) 5.4 Lymph # (Auto) 1.1 [place] # (Auto) 0.7 Eos # (Auto) 0.3 Baso # (Auto) 0.1 Immature Gran # (Auto) 0.07 H Absolute Nucleated RBC 0.00 Immature Gran % 1 H Nucleated RBC % 0 PT 11.8 INR 1.1 Sodium 145 Potassium 4.2 Chloride 110 H Carbon Dioxide 25.5 Anion Gap 10 BUN 23 Creatinine 1.0 Estim Creat Clear Calc 94.1 eGFR > 60 BUN/Creatinine Ratio 23 H Glucose 129 H Calculated Osmolality 294 Calcium 8.1 L Corrected Calcium 8.7 Phosphorus 3.8 Magnesium 1.8 Total Bilirubin 0.5 AST 66 H ALT 60 H Alkaline Phosphatase 71 Total Protein 5.4 L Albumin 3.2 L Globulin 2.2 L Albumin/Globulin Ratio 1.5 Crossmatch See Detail Quality Measures Quality Measures sepsis Current suspected stage: ruled out Possible source: GI tract/intra-abdominal Blood cultures ordered: no Antibiotic ordered: No Assessment & Plan Assessment Current Active Medications: Generic Name Dose Route Start Last Admin Trade Name Freq PRN Reason Stop Dose Admin Acetaminophen 325 mg 06/24/25 12:54 Acetaminophen 325 Mg Tablet PO 07/24/25 12:53 Q6H PRN Pain (1-3) & Fever >100.4 Atorvastatin Calcium 80 mg 06/26/25 21:00 06/26/25 20:11 Atorvastatin Calcium 20 Mg Tablet PO 07/26/25 20:59 80 mg HS CHYNA Administration Metoprolol Succinate 25 mg 06/26/25 10:00 06/27/25 08:06 Metoprolol Succinate Xl 25 Mg Tabcr PO 07/26/25 09:59 25 mg QDAY CHYNA Administration Ondansetron HCl 4 mg 06/24/25 12:56 Ondansetron Inj 2 Mg/Ml Inj 2 Ml IVP 07/24/25 12:55 Q6H PRN NAUSEA OR VOMITING Protocol Pantoprazole Sodium 40 mg 06/27/25 09:00 06/27/25 08:06 Pantoprazole Inj 40 Mg Vial IVP 07/27/25 08:59 40 mg Q12HR CHYNA Administration Polyethylene Glycol 17 gm 06/26/25 15:00 06/27/25 08:07 Polyethylene Glycol 17 Gm Packet PO 07/26/25 14:59 17 gm QDAY CHYNA Administration Sucralfate 1 gm 06/27/25 21:00 Sucralfate Susp 1 Gm/10 Ml Udc PO 07/27/25 20:59 [facility] Tamsulosin HCl 0.4 mg 06/26/25 14:45 06/27/25 08:05 Tamsulosin Hcl 0.4 Mg Capsule PO 07/26/25 14:44 0.4 mg QDAY CHYNA Administration Plan Mr. King is a 65-year-old male with past medical history of heart failure with reduced ejection fraction, EF 20 to 25% 03/2025, combined systolic and diastolic heart failure, low-flow moderate AV stenosis, hypertension, hyperlipidemia, infrarenal abdominal aortic aneurysm, peripheral arterial disease status post iliac stent, hyperlipidemia, former cocaine use, chronic smoker (30 pack years), benign prostate hypertrophy, Cirrhosis and Hepatitis C infection who presented to [facility] emergency department on June 24, 2025 with a chief complaint of dark stools. Cardiology consulted in the setting of heart failure with reduced ejection fraction, EF 20 to 25% noted in March. #Heart failure with reduced ejection fraction, EF 20-25%, March 2025 #Combined systolic and diastolic heart failure #Low Flow Moderate AV stenosis Patient has history of heart failure with reduced ejection fraction, currently seems to be euvolemic not in any acute decompensation. Patient currently stable on room air, minimal peripheral edema noted, does not seem to be in any acute exacerbation. Echocardiogram March 2025 shows Dialated cardiomyopathy. Dilated LV. Severe systolic dysfunction. Severe global hypokinesis. Estimated EF 20-30% %. Grade 2 diastolic dysfunction. Mild RV dilatation. Mild RV systolic dysufnction. Mild to modertae AV stenosis. Low gradient due to low EF. Mean PG 12-14 mm hg but JE aroind 1.1 to 1.2 sq cm which indicates at least moderate stenosis. Mild MAC. Mild MR. Mild TR. Trace AI. Mildly dilated LA volume 40.5 mL/m? EKG 06/24 shows sinus tachycardia, rate 108, inverted T waves noted on V4, V5, V6, QRSd 103 Lipid panel 05/01/2025 shows triglycerides 67, cholesterol 127, LDL 81, HDL 33, A1c 5.4, TSH 1.2 RCRI score: 2 points, patient has history of congestive heart failure and EKG changes suggestive of ischemic disease METs greater than 4, patient is independent outpatient. Plan: - Strict intake and output - Fluid restriction 1500 cc - Daily weight - Continue with Metoprolol XL 25mg daily for now, resume entresto 1 tab daily when BP is more stable and later add spironolactone 0.5 tab of 25mg daily. - Start on clopidogrel 75mg daily after colonoscopy is done. - Patient will benefit from ICD placement outpatient if does not improve with GDMT. - Close monitoring outpatient for low flow moderate AV stenosis Acute GI bleed and Anemia: Patient admitted to that time to the ICU due to hypovolemic shock secondary to presumed blood loss. Had melena for last few days on asirin and plavix. EGD also performed on 06/25 which demonstrated esophagitis, gastritis and a duodenal ulcer with no signs of bleeding at the time of procedure. Recommended to continue low-sodium peptic ulcer diet with Protonix 40 mg daily and avoidance of NSAIDs. Biopsy results are also pending. Antibiotics and octreotide have been discontinued. await colonoscopy reports #Infrarenal abdominal aortic aneurysm, 3.3 cm #Peripheral arterial disease #S/p Iliac Stent #Narrowing of left common iliac artery. Patient has aortoiliac stent, CT chest abdomen pelvis shows severe narrowing left common iliac, patient does have a aortic iliac stent. Bilateral pedal pulses palpated, no evidence of limb ischemia, left foot amputation noted. MONICO (05/01/2025): Right ankle/Brachial index 1.1 and Left ankle/Brachial index 1.1 - Outpatient follow-up #Chronic smoking history, 30 pack years #Acute GI bleed, likely upper #Melena #Cirrhosis, on imaging, ?Decompensated cirrhosis #Transaminitis #Benign prostate hypertrophy #Hyperchloremic normal anion gap acidosis #Elevated BUN #Leukocytosis #Normocytic normochromic anemia #Hepatitis C Management as per Hospitalist team Thank you for cardiology consultation. We appreciate the opportunity to participate in this patient care. We will continue to follow-up on this patient. The patient's management plan was discussed with my attending physician MD Vasu Sotelo MD, PGY3 Attending Provider Attestation/Addendum I have personally seen and examined the patient separately on the above date of service and discussed the plan of care with the resident. I reviewed the resident Dr. Vasu Whitlock consultation progress note and agree with the resident findings and plan in the note above and have also edited the documentation to reflect my findings and plan. Ernie Mcclelland M.D. Interventional Cardiology
--- NOTE | 2025-06-27 20:04 | PD.IMPROG ---
Documentation for date of: 06/27/25 Subjective Subjective Interval history: Downtrending hemoglobin hematocrit at 8.6 and 26.1 Case discussed with internal medicine team clear liquid diet GoLytely prep Colonoscopy a.m. Exam Vital Signs Temp Pulse Resp BP Pulse Ox O2 Del Method O2 Flow Rate 96.8 F 85 14 105/77 100 Room Air 3 06/27/25 16:00 06/27/25 16:00 06/27/25 16:00 06/27/25 16:00 06/27/25 16:00 06/27/25 16:00 06/25/25 17:20 Objective Labs 06/27/25 05:37 06/27/25 05:37 Labs: Laboratory Results - last 24 hr 06/24/25 06/27/25 08:43 05:37 WBC 7.6 RBC 2.84 L Hgb 8.6 L Hct 26.1 L MCV 92 MCH 30.3 MCHC 33.0 RDW Std Deviation 51.0 H Plt Count 122 L Neut % (Auto) 72 Lymph % (Auto) 14 [place] % (Auto) 9 Eos % (Auto) 4 Baso % (Auto) 1 Neut # (Auto) 5.4 Lymph # (Auto) 1.1 [place] # (Auto) 0.7 Eos # (Auto) 0.3 Baso # (Auto) 0.1 Immature Gran # (Auto) 0.07 H Absolute Nucleated RBC 0.00 Immature Gran % 1 H Nucleated RBC % 0 PT 11.8 INR 1.1 Sodium 145 Potassium 4.2 Chloride 110 H Carbon Dioxide 25.5 Anion Gap 10 BUN 23 Creatinine 1.0 Estim Creat Clear Calc 94.1 eGFR > 60 BUN/Creatinine Ratio 23 H Glucose 129 H Calculated Osmolality 294 Calcium 8.1 L Corrected Calcium 8.7 Phosphorus 3.8 Magnesium 1.8 Total Bilirubin 0.5 AST 66 H ALT 60 H Alkaline Phosphatase 71 Total Protein 5.4 L Albumin 3.2 L Globulin 2.2 L Albumin/Globulin Ratio 1.5 Crossmatch See Detail Impressions Impression: Shallow duodenal ulcer Severe duodenitis Downtrending hemoglobin hematocrit Schedule colonoscopy after GoLytely prep Assessment & Plan A&P Narrative # Melena # Posthemorrhagic anemia Plan Agree with the blood transfusion Let the patient settle down Consent obtained for fiberoptic esophagogastroduodenoscopy with possible biopsy possible therapeutic intervention under intravenous moderate sedation scheduled for tomorrow IV Protonix N.p.o. midnight tonight except p.o. meds Other medical problems include Systolic and diastolic congestive heart failure ejection fraction somewhere close to 20% Moderate aortic stenosis BPH Hepatitis C Abdominal aortic aneurysm Thank you very much for the opportunity to participate in the care of this patient Time Spent With Patient Time: Total time spent is greater than 50% in coordination of care (as documented) at patient's floor/unit and/or counseling patient:
[2025-06-27] MEDS: ATORVASTATIN CALCIUM 20 MG TABLET 80 MG PO (20:28)
[2025-06-27] MEDS: SUCRALFATE SUSP 1 GM/10 ML UDC PO (20:28)
[2025-06-28] VITALS (8 sets, daily range): BP systolic 94–108; BP diastolic 65–75; PULSE 81–136; RESP 16–27; TEMP 35.9–36.4; O2SAT 96–98; BMI 30.4
[2025-06-28 06:08] LABS: Basophils # (Auto) 0.0 Thou/mm3 (0.0-0.2); Basophils % (Auto) 0 % (0-2.5); Eosinophils # (Auto) 0.3 Thou/mm3 (0.0-0.5); Eosinophils % (Auto) 4 % (0-10); Hematocrit 25.0 % (41.0-53.0); Immature Granulocytes Auto 0.07 Thou/mm3 (0.00-0.00); Lymphocytes # (Auto) 0.9 Thou/mm3 (1.0-4.8); Lymphocytes % (Auto) 12 % (10-50); Mean Corpuscular HGB Conc 33.2 g/dl (31.0-37.0); Mean Corpuscular Hemoglobin 30.1 pg (25.0-35.0); Mean Corpuscular Volume 91 fL (80-100); Monocytes # (Auto) 0.6 Thou/mm3 (0.0-0.8); Monocytes % (Auto) 8 % (0-12); Neutrophils # (Auto) 5.6 Thou/mm3 (1.8-7.7); Neutrophils % (Auto) 75 % (37-80); Nucleated Red Blood Cell # 0.00 Thou/mm3 (0.00-0.00); Nucleated Red Blood Cell % 0 /100 WBC (0); Platelet Count 129 Thou/mm3 (140-440); RDW Standard Deviation 50.1 fL (35.1-43.9); Red Blood Count 2.76 Miln/mm3 (4.50-5.90); White Blood Count 7.5 Thou/mm3 (3.8-10.6)
[2025-06-28 06:22] LABS: Hemoglobin 8.3 g/dL (13.5-16.0)
[2025-06-28 06:28] LABS: Alanine Aminotransferase 53 U/L (10-49); Albumin, Serum 3.0 gm/dL (3.4-4.8); Albumin/Globulin Ratio 1.4 (1.2-2.2); Alkaline Phosphatase 67 U/L (46-116); Anion Gap 8 (7-16); Aspartate Amino Transferase 52 U/L (0-34); BUN/Creatinine Ratio 18 Ratio (12-20); Bilirubin,Total 0.8 mg/dL (0.3-1.2); Blood Urea Nitrogen 14 mg/dL (9-23); Calcium 8.0 mg/dL (8.3-10.6); Calcium (Corrected) 8.8 mg/dL (8.5-10.1); Carbon Dioxide 26.0 mMol/L (20.0-31.0); Chloride 108 mMol/L (98-107); Creatinine (Component) 0.8 mg/dL (0.6-1.3); Estimated Creatinine Clearance 116.5 mL/min (>60); Globulin 2.2 gm/dL (2.3-3.5); Glucose 111 mg/dL (74-106); Magnesium 2.0 mg/dL (1.6-2.6); Osmolality,Calculated 284 (275-295); Phosphorous 3.3 mg/dL (2.4-5.1); Potassium 4.1 mMol/L (3.4-5.1); Sodium 142 mMol/L (136-145); Total Protein 5.2 gm/dL (5.7-8.2); eGFR > 60 See Note
[2025-06-28] MEDS: SUCRALFATE SUSP 1 GM/10 ML UDC PO ×2 (08:17→20:47)
[2025-06-28] MEDS: METOPROLOL SUCCINATE XL 25 MG TABCR PO (08:17)
[2025-06-28] MEDS: TAMSULOSIN HCL 0.4 MG CAPSULE PO (08:17)
[2025-06-28] MEDS: POLYETHYLENE GLYCOL 17 GM PACKET PO (08:18)
--- NOTE | 2025-06-28 13:27 | PD.RESPRO ---
Documentation for date of: 06/28/25 Subjective Subjective Interval history: Pt examined at bedside today. No acute overnight events. Pt reports he is doing well. He is ready for the colonoscopy and is wondering when he is going to get it. He reports not having any recent bloody bowel movements. No other complaints at this time. Exam Vital Signs Temp Pulse Resp BP Pulse Ox O2 Del Method O2 Flow Rate 97.0 F 136 H 16 107/65 97 Room Air 3 06/28/25 12:00 06/28/25 12:00 06/28/25 12:00 06/28/25 12:06/28/25 12:00 06/28/25 12:00 06/25/25 17:20 Narrative Exam Physical Exam General: Awake and in no acute distress. Conversational and non-toxic appearing. HEENT: Normocephalic, atraumatic, mucous membranes moist. Heart: Sinus tachycardia, positive murmur aortic area. Lungs: Clear to auscultation with no wheezing or crackles. Abdomen: Soft, mild distension, mild tenderness, positive bowel sounds. ?No guarding or rebound tenderness. Percussion dull. Neurologic: Alert and oriented x3, no gross neurological deficit, and patient able to move all 4 extremities. Extremities: Trace edema. Amputated left foot second digit Skin: No rash or ecchymoses. Objective Labs 06/29/25 03:56 06/29/25 03:56 Labs: Laboratory Results - last 24 hr 06/28/25 05:27 WBC 7.5 RBC 2.76 L Hgb 8.3 L Hct 25.0 L MCV 91 MCH 30.1 MCHC 33.2 RDW Std Deviation 50.1 H Plt Count 129 L Neut % (Auto) 75 Lymph % (Auto) 12 [place] % (Auto) 8 Eos % (Auto) 4 Baso % (Auto) 0 Neut # (Auto) 5.6 Lymph # (Auto) 0.9 L [place] # (Auto) 0.6 Eos # (Auto) 0.3 Baso # (Auto) 0.0 Immature Gran # (Auto) 0.07 H Absolute Nucleated RBC 0.00 Immature Gran % 1 H Nucleated RBC % 0 Sodium 142 Potassium 4.1 Chloride 108 H Carbon Dioxide 26.0 Anion Gap 8 BUN 14 Creatinine 0.8 Estim Creat Clear Calc 116.5 eGFR > 60 BUN/Creatinine Ratio 18 Glucose 111 H Calculated Osmolality 284 Calcium 8.0 L Corrected Calcium 8.8 Phosphorus 3.3 Magnesium 2.0 Total Bilirubin 0.8 AST 52 H ALT 53 H Alkaline Phosphatase 67 Total Protein 5.2 L Albumin 3.0 L Globulin 2.2 L Albumin/Globulin Ratio 1.4 Quality Measures Quality Measures sepsis Current suspected stage: ruled out Possible source: GI tract/intra-abdominal Blood cultures ordered: no Antibiotic ordered: No Assessment & Plan Assessment Current Active Medications: Generic Name Dose Route Start Last Admin Trade Name Freq PRN Reason Stop Dose Admin Acetaminophen 325 mg 06/24/25 12:54 Acetaminophen 325 Mg Tablet PO 07/24/25 12:53 Q6H PRN Pain (1-3) & Fever >100.4 Atorvastatin Calcium 80 mg 06/26/25 21:00 06/27/25 20:28 Atorvastatin Calcium 20 Mg Tablet PO 07/26/25 20:59 80 mg HS CHYNA Administration Metoprolol Succinate 25 mg 06/26/25 10:00 06/28/25 08:17 Metoprolol Succinate Xl 25 Mg Tabcr PO 07/26/25 09:59 25 mg QDAY CHYNA Administration Ondansetron HCl 4 mg 06/24/25 12:56 Ondansetron Inj 2 Mg/Ml Inj 2 Ml IVP 07/24/25 12:55 Q6H PRN NAUSEA OR VOMITING Protocol Pantoprazole Sodium 40 mg 06/28/25 21:00 Pantoprazole 40 Mg Tablet PO 07/28/25 20:59 BID CHYNA Protocol Polyethylene Glycol 17 gm 06/26/25 15:00 06/28/25 08:18 Polyethylene Glycol 17 Gm Packet PO 07/26/25 14:59 17 gm QDAY CHYNA Administration Sucralfate 1 gm 06/27/25 21:00 06/28/25 08:17 Sucralfate Susp 1 Gm/10 Ml Udc PO 07/27/25 20:59 1 gm ACHS CHYNA Administration Tamsulosin HCl 0.4 mg 06/26/25 14:45 06/28/25 08:17 Tamsulosin Hcl 0.4 Mg Capsule PO 07/26/25 14:44 0.4 mg QDAY CHYNA Administration Plan Assessment Wood King is a 65M with MHx of HFrEF, EF 20 to 25% 03/2025, hepatitis C infection, infrarenal AAA, PAD s/p iliac stent, HLD, BPH who presented to the ED ([id number]) with a chief complaint of dark stools. ICU team consulted in setting of shock and marked tachycardia likely 2/2 active GI bleed. In ICU, BP was kept >65mmHg with Levophed 0.05. #Acute GI bleed, likely upper #Melena #Normocytic normochromic anemia (2/2 GI Bleed) #Weakness Patient reported newfound tinges of blood on stool that is lightening from original black otherwise. Hgb 8.6 today and down from yesterday 9.2. [place] bleeding score: 17 points, high risk GI bleed EGD ([id number]): Esophagitis, Gastritis, and duodenal ulcer in context of erythematous duodenopathy. Will speak with GI after colonoscopy once we are able to resume DAPT as pt has recent iliac stent, will resume plavix for now Plan: - GI consulted, Appreciate recommendations - Colonoscopy today - SBP prophylaxis: Ceftriaxone daily - Continue Protonix IV 40mg bid - Trend CBC #HFrEF, EF 20-25% #Combined systolic and diastolic heart failure #Mild to moderate AV stenosis Patient on GDMT at home: metoprolol succinate XR 25mg, losartan 25mg, spirinolactone 25mg, and dapagliflozin 10mg Qday Echo (): Dialated cardiomyopathy. Dilated LV. Severe systolic dysfunction. Severe global hypokinesis. Estimated EF 20-30% %. Grade 2 diastolic dysfunction. Mild RV dilatation. Mild RV systolic dysufnction. Mild to modertae AV stenosis. Mild MAC. Mild MR. Mild TR. Trace AI. Mildly dilated LA volume 40.5 mL/m? Plan: - Strict intake and output - Keep on fluid restriction 1500 cc - Daily weight - On GDMT outpatient, follows up with observation nurse Dr. Ernie Mcclelland - Cardiology consulted, recommends ICD placement, and resuming GDMT as tolerated. - Continue Metoprolol 25 XL #Infrarenal abdominal aortic aneurysm, 3.3 cm #Peripheral arterial disease #AortoIliac Stent b/l #Narrowing of left common iliac artery. (findings of CT chest and abdomen) Patient on Aspirin 81mg and atorvastatin 80mg Qday. ASA held in the setting of a duodenal ulcer prone to bleeding. Plan: -Resume Plavix 75 mg qday -Defer to cardiology when to resume aspirin #Active hep C infection #Transaminitis in May 2025 hepatitis panel shows positive hep C antibody, HCV viral load of 2.5 million. 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 Improved AST 84, and ALT 69 (06/23) - Follow-up with infectious disease outpatient #Hyperlipidemia TG 67, Ch 127, LDL 81, HDL 33 (05/01/2025) Resumed patient on atorvastatin 80 mg at bedtime. #Benign prostate hypertrophy Resumed patient on Flomax 0.4mg. # Chronic smoking history, 30 pack years Not an active smoker currently, history of 30 pack years, no lung nodules/lymphadenopathy noted on CTA - Outpatient screening as appropriate #Hypovolemic/hemorrhagic shock, resolved #Hyperchloremic normal anion gap acidosis, resolved #UTI, ruled out Pt reports dysuria. UA was positive for turbid urine with 1+ protein, leukocyte esterase, RBC 18, WBC 723, no bacteria. ? MRSA screen: pending ? Blood cultures: negative after 48h ? Urine culture: negative (06/24) Health Maintanance: DVT prophylaxis: SCDs GI prophylaxis: Protonix twice daily BM: Miralax PO 17mg Qday Diet: 2g sodium Lines: Peripheral IV Code status: Full code #Health Maintenance Disposition: Telemetry DVT prophylaxis: SCDs GI prophylaxis: Protonix Diet: Clear Liquid Diet CODE STATUS: Full Patient seen and care discussed with my attending physician, Dr. Kevyn Saldana, PGY-2 Attending Provider Attestation/Addendum The patient was admitted for GI bleed scheduled for colonoscopy today however he is not adequately prepped. The patient will need additional GoLytely by Dr. Alanis. I discussed with and supervised the resident physician who took care of this patient. I agree with the assessment and plan as above.
--- NOTE | 2025-06-28 14:27 | ESPR_ITS ---
Documentation for date of: 06/28/25 Subjective Subjective Interval history: The patient was seen and examined at the bedside this morning. He reported doing well. He denied any chest pain, SOB, orthopnea or PND, palpitations. He reported drinking about half the gallon of Golytely and has been having frequent bowel movement not tinged with blood. Vitals were fairly stable with soft blood pressure of 107/65, heart rate in 80s, saturating 98% on room air. Labs were significant for hemoglobin 8.3, platelet 129, potassium 4.1, BUN 14, creatinine 0.8, calcium 8.8, magnesium 2.0 Recommended to start the patient on Plavix 75 Mg daily, as anticoagulation has been cleared by GI, and needs to be in DAPT due to recent iliac stent. We will add aspirin later. Continue with metoprolol succinate 25 Mg daily and Continue with atorvastatin 80 Mg daily. Patient will benefit from ICD placement outpatient if does not improve with GDMT. Exam Vital Signs Temp Pulse Resp BP Pulse Ox O2 Del Method O2 Flow Rate 97.0 F 91 16 107/65 97 Room Air 3 06/28/25 12:00 06/28/25 14:00 06/28/25 12:00 06/28/25 12:00 06/28/25 12:00 06/28/25 12:00 06/25/25 17:20 Narrative Exam General: No acute distress, Alert and Oriented x 3 HEENT: Moist mucous membranes, oropharynx clear Neck: Supple, No masses, No JVD CVS: S1S2 Regular rate and rhythm, No murmurs, rubs or gallops Lungs: Clear to auscultation with no accessory use, no wheeze no rhonchi Abd: Soft, NT/ND, +BS, no organomegaly Ext: No edema, warm and well perfused Skin: No rash Psych: Appropriate mood and affect Objective Labs 06/28/25 05:27 06/28/25 05:27 Labs: Laboratory Results - last 24 hr 06/28/25 05:27 WBC 7.5 RBC 2.76 L Hgb 8.3 L Hct 25.0 L MCV 91 MCH 30.1 MCHC 33.2 RDW Std Deviation 50.1 H Plt Count 129 L Neut % (Auto) 75 Lymph % (Auto) 12 [place] % (Auto) 8 Eos % (Auto) 4 Baso % (Auto) 0 Neut # (Auto) 5.6 Lymph # (Auto) 0.9 L [place] # (Auto) 0.6 Eos # (Auto) 0.3 Baso # (Auto) 0.0 Immature Gran # (Auto) 0.07 H Absolute Nucleated RBC 0.00 Immature Gran % 1 H Nucleated RBC % 0 Sodium 142 Potassium 4.1 Chloride 108 H Carbon Dioxide 26.0 Anion Gap 8 BUN 14 Creatinine 0.8 Estim Creat Clear Calc 116.5 eGFR > 60 BUN/Creatinine Ratio 18 Glucose 111 H Calculated Osmolality 284 Calcium 8.0 L Corrected Calcium 8.8 Phosphorus 3.3 Magnesium 2.0 Total Bilirubin 0.8 AST 52 H ALT 53 H Alkaline Phosphatase 67 Total Protein 5.2 L Albumin 3.0 L Globulin 2.2 L Albumin/Globulin Ratio 1.4 Quality Measures Quality Measures sepsis Current suspected stage: ruled out Possible source: GI tract/intra- abdominal Blood cultures ordered: no Antibiotic ordered: No Assessment & Plan Assessment Current Active Medications: Generic Name Dose Route Start Last Admin Trade Name Freq PRN Reason Stop Dose Admin Acetaminophen 325 mg 06/24/25 12:54 Acetaminophen 325 Mg Tablet PO 07/24/25 12:53 Q6H PRN Pain (1-3) & Fever >100.4 Atorvastatin Calcium 80 mg 06/26/25 21:00 06/27/25 20:28 Atorvastatin Calcium 20 Mg Tablet PO 07/26/25 20:59 80 mg HS CHYNA Administration Clopidogrel Bisulfate 75 mg 06/28/25 13:45 06/28/25 14:20 Clopidogrel Bisulfate 75 Mg Tablet PO 07/28/25 13:44 Not Given QDAY CHYNA Metoprolol Succinate 25 mg 06/26/25 10:00 06/28/25 08:17 Metoprolol Succinate Xl 25 Mg Tabcr PO 07/26/25 09:59 25 mg QDAY CHYNA Administration Ondansetron HCl 4 mg 06/24/25 12:56 Ondansetron Inj 2 Mg/Ml Inj 2 Ml IVP 07/24/25 12:55 Q6H PRN NAUSEA OR VOMITING Protocol Pantoprazole Sodium 40 mg 06/28/25 21:00 Pantoprazole 40 Mg Tablet PO 07/28/25 20:59 BID CHYNA Protocol Polyethylene Glycol 17 gm 06/26/25 15:00 06/28/25 08:18 Polyethylene Glycol 17 Gm Packet PO 07/26/25 14:59 17 gm QDAY CHYNA Administration Sucralfate 1 gm 06/27/25 21:00 06/28/25 14:21 Sucralfate Susp 1 Gm/10 Ml Udc PO 07/27/25 20:59 Not Given ACHS CHYNA Tamsulosin HCl 0.4 mg 06/26/25 14:45 06/28/25 08:17 Tamsulosin Hcl 0.4 Mg Capsule PO 07/26/25 14:44 0.4 mg QDAY CHYNA Administration Plan Mr. King is a 65-year-old male with past medical history of heart failure with reduced ejection fraction, EF 20 to 25% 03/2025, combined systolic and diastolic heart failure, low-flow moderate AV stenosis, hypertension, hyperlipidemia, infrarenal abdominal aortic aneurysm, peripheral arterial disease status post iliac stent, hyperlipidemia, former cocaine use, chronic smoker (30 pack years), benign prostate hypertrophy, Cirrhosis and Hepatitis C infection who presented to [facility] emergency department on June 24, 2025 with a chief complaint of dark stools. Cardiology consulted in the setting of heart failure with reduced ejection fraction, EF 20 to 25% noted in March. #Heart failure with reduced ejection fraction, EF 20-25%, March 2025 #Combined systolic and diastolic heart failure #Low Flow Moderate AV stenosis Patient has history of heart failure with reduced ejection fraction, currently seems to be euvolemic not in any acute decompensation. Patient currently stable on room air, minimal peripheral edema noted, does not seem to be in any acute exacerbation. Echocardiogram March 2025 shows Dialated cardiomyopathy. Dilated LV. Severe systolic dysfunction. Severe global hypokinesis. Estimated EF 20-30% %. Grade 2 diastolic dysfunction. Mild RV dilatation. Mild RV systolic dysufnction. Mild to modertae AV stenosis. Low gradient due to low EF. Mean PG 12-14 mm hg but JE aroind 1.1 to 1.2 sq cm which indicates at least moderate stenosis. Mild MAC. Mild MR. Mild TR. Trace AI. Mildly dilated LA volume 40.5 mL/m? EKG 06/24 shows sinus tachycardia, rate 108, inverted T waves noted on V4, V5, V6, QRSd 103 Lipid panel 05/01/2025 shows triglycerides 67, cholesterol 127, LDL 81, HDL 33, A1c 5.4, TSH 1.2 RCRI score: 2 points, patient has history of congestive heart failure and EKG changes suggestive of ischemic disease METs greater than 4, patient is independent outpatient. Plan: - Strict intake and output - Fluid restriction 1500 cc - Daily weight - Continue with Metoprolol XL 25mg daily for now, resume entresto 1 tab daily when BP is more stable and later add spironolactone 0.5 tab of 25mg daily. - Patient will benefit from ICD placement outpatient if does not improve with GDMT. - Close monitoring outpatient for low flow moderate AV stenosis Acute GI bleed and Anemia: Patient admitted to that time to the ICU due to hypovolemic shock secondary to presumed blood loss. Had melena for last few days on asirin and plavix. EGD also performed on 06/25 which demonstrated esophagitis, gastritis and a duodenal ulcer with no signs of bleeding at the time of procedure. Recommended to continue low-sodium peptic ulcer diet with Protonix 40 mg daily and avoidance of NSAIDs. Biopsy results are also pending. Antibiotics and octreotide have been discontinued. await colonoscopy reports #Infrarenal abdominal aortic aneurysm, 3.3 cm #Peripheral arterial disease #S/p Iliac Stent #Narrowing of left common iliac artery. Patient has aortoiliac stent, CT chest abdomen pelvis shows severe narrowing left common iliac, patient does have a aortic iliac stent. Bilateral pedal pulses palpated, no evidence of limb ischemia, left foot amputation noted. MONICO (05/01/2025): Right ankle/Brachial index 1.1 and Left ankle/Brachial index 1.1 - Start on clopidogrel 75mg daily after colonoscopy is done. - Outpatient follow-up #Chronic smoking history, 30 pack years #Acute GI bleed, likely upper #Melena #Cirrhosis, on imaging, ?Decompensated cirrhosis #Transaminitis #Benign prostate hypertrophy #Hyperchloremic normal anion gap acidosis #Elevated BUN #Leukocytosis #Normocytic normochromic anemia #Hepatitis C Management as per Hospitalist team Thank you for cardiology consultation. We appreciate the opportunity to participate in this patient care. We will continue to follow-up on this patient. The patient's management plan was discussed with my attending physician MD Vasu Sotelo MD, PGY3 Attending Provider Attestation/Addendum I have personally seen and examined the patient separately on the above date of service and discussed the plan of care with the resident. I reviewed the resident Dr. Vasu Whitlock consultation progress note and agree with the resident findings and plan in the note above and have also edited the documentation to reflect my findings and plan. Ernie Mcclelland M.D. Interventional Cardiology
[2025-06-28] MEDS: NA SU/NAHCO3/KC/PEG (Golytely) 4,000 ML BTL 4000 ML PO (17:56)
--- NOTE | 2025-06-28 19:04 | PD.IMPROG ---
Documentation for date of: 06/28/25 Subjective Subjective Interval history: Patient was scheduled for a colonoscopy today however he is not clear Additional GoLytely Procedure scheduled for tomorrow Exam Vital Signs Temp Pulse Resp BP Pulse Ox O2 Del Method O2 Flow Rate 97.2 F 92 22 H 108/69 98 Room Air 3 06/28/25 16:00 06/28/25 16:00 06/28/25 16:00 06/28/25 16:00 06/28/25 16:00 06/28/25 16:00 06/25/25 17:20 Objective Labs 06/28/25 05:27 06/28/25 05:27 Labs: Laboratory Results - last 24 hr 06/28/25 05:27 WBC 7.5 RBC 2.76 L Hgb 8.3 L Hct 25.0 L MCV 91 MCH 30.1 MCHC 33.2 RDW Std Deviation 50.1 H Plt Count 129 L Neut % (Auto) 75 Lymph % (Auto) 12 [place] % (Auto) 8 Eos % (Auto) 4 Baso % (Auto) 0 Neut # (Auto) 5.6 Lymph # (Auto) 0.9 L [place] # (Auto) 0.6 Eos # (Auto) 0.3 Baso # (Auto) 0.0 Immature Gran # (Auto) 0.07 H Absolute Nucleated RBC 0.00 Immature Gran % 1 H Nucleated RBC % 0 Sodium 142 Potassium 4.1 Chloride 108 H Carbon Dioxide 26.0 Anion Gap 8 BUN 14 Creatinine 0.8 Estim Creat Clear Calc 116.5 eGFR > 60 BUN/Creatinine Ratio 18 Glucose 111 H Calculated Osmolality 284 Calcium 8.0 L Corrected Calcium 8.8 Phosphorus 3.3 Magnesium 2.0 Total Bilirubin 0.8 AST 52 H ALT 53 H Alkaline Phosphatase 67 Total Protein 5.2 L Albumin 3.0 L Globulin 2.2 L Albumin/Globulin Ratio 1.4 Impressions Impression: Downtrending hemoglobin hematocrit Posthemorrhagic anemia Shallow duodenal ulcer Plan Additional GoLytely Colonoscopy a.m. Assessment & Plan A&P Narrative # Melena # Posthemorrhagic anemia Plan Agree with the blood transfusion Let the patient settle down Consent obtained for fiberoptic esophagogastroduodenoscopy with possible biopsy possible therapeutic intervention under intravenous moderate sedation scheduled for tomorrow IV Protonix N.p.o. midnight tonight except p.o. meds Other medical problems include Systolic and diastolic congestive heart failure ejection fraction somewhere close to 20% Moderate aortic stenosis BPH Hepatitis C Abdominal aortic aneurysm Thank you very much for the opportunity to participate in the care of this patient Time Spent With Patient Time: Total time spent is greater than 50% in coordination of care (as documented) at patient's floor/unit and/or counseling patient:
[2025-06-28] MEDS: PANTOPRAZOLE 40 MG TABLET PO (20:46)
[2025-06-28] MEDS: ATORVASTATIN CALCIUM 20 MG TABLET 80 MG PO (20:47)
[2025-06-29] VITALS (19 sets, daily range): BP systolic 87–118; BP diastolic 48–96; PULSE 83–99; RESP 13–20; TEMP 35.9–37.1; O2SAT 94–99; BMI 30.3
--- NOTE | 2025-06-29 02:33 | PC.NURSE ---
Patient is refusing bed alarm to be on
[2025-06-29 04:59] LABS: Basophils # (Auto) 0.1 Thou/mm3 (0.0-0.2); Basophils % (Auto) 1 % (0-2.5); Eosinophils # (Auto) 0.3 Thou/mm3 (0.0-0.5); Eosinophils % (Auto) 4 % (0-10); Hematocrit 25.9 % (41.0-53.0); Immature Granulocytes Auto 0.06 Thou/mm3 (0.00-0.00); Lymphocytes # (Auto) 1.0 Thou/mm3 (1.0-4.8); Lymphocytes % (Auto) 15 % (10-50); Mean Corpuscular HGB Conc 33.2 g/dl (31.0-37.0); Mean Corpuscular Hemoglobin 30.4 pg (25.0-35.0); Mean Corpuscular Volume 92 fL (80-100); Monocytes # (Auto) 0.6 Thou/mm3 (0.0-0.8); Monocytes % (Auto) 8 % (0-12); Neutrophils # (Auto) 5.0 Thou/mm3 (1.8-7.7); Neutrophils % (Auto) 72 % (37-80); Nucleated Red Blood Cell # 0.00 Thou/mm3 (0.00-0.00); Nucleated Red Blood Cell % 0 /100 WBC (0); Platelet Count 144 Thou/mm3 (140-440); RDW Standard Deviation 51.5 fL (35.1-43.9); Red Blood Count 2.83 Miln/mm3 (4.50-5.90); White Blood Count 7.0 Thou/mm3 (3.8-10.6)
[2025-06-29 05:07] LABS: Hemoglobin 8.6 g/dL (13.5-16.0)
[2025-06-29 05:29] LABS: Alanine Aminotransferase 60 U/L (10-49); Albumin, Serum 3.1 gm/dL (3.4-4.8); Albumin/Globulin Ratio 1.4 (1.2-2.2); Alkaline Phosphatase 82 U/L (46-116); Anion Gap 8 (7-16); Aspartate Amino Transferase 67 U/L (0-34); BUN/Creatinine Ratio 10 Ratio (12-20); Bilirubin,Total 0.8 mg/dL (0.3-1.2); Blood Urea Nitrogen 8 mg/dL (9-23); Calcium 8.1 mg/dL (8.3-10.6); Calcium (Corrected) 8.8 mg/dL (8.5-10.1); Carbon Dioxide 26.7 mMol/L (20.0-31.0); Chloride 109 mMol/L (98-107); Creatinine (Component) 0.8 mg/dL (0.6-1.3); Estimated Creatinine Clearance 117.0 mL/min (>60); Globulin 2.2 gm/dL (2.3-3.5); Glucose 99 mg/dL (74-106); Magnesium 1.5 mg/dL (1.6-2.6); Osmolality,Calculated 285 (275-295); Phosphorous 3.3 mg/dL (2.4-5.1); Potassium 4.3 mMol/L (3.4-5.1); Sodium 144 mMol/L (136-145); Total Protein 5.3 gm/dL (5.7-8.2); eGFR > 60 See Note
[2025-06-29] MEDS: CLOPIDOGREL BISULFATE 75 MG TABLET PO (08:42)
[2025-06-29] MEDS: SUCRALFATE SUSP 1 GM/10 ML UDC PO ×3 (08:42→22:20)
[2025-06-29] MEDS: METOPROLOL SUCCINATE XL 25 MG TABCR PO (08:43)
[2025-06-29] MEDS: TAMSULOSIN HCL 0.4 MG CAPSULE PO (08:43)
[2025-06-29] MEDS: PANTOPRAZOLE 40 MG TABLET PO ×2 (08:43→22:21)
[2025-06-29] MEDS: POLYETHYLENE GLYCOL 17 GM PACKET PO (08:46)
--- NOTE | 2025-06-29 08:51 | PC.SS ---
Addendum entered by Freya Trotter 06/29/25 15:30: SS received update that facility now has authorization. Updated physician team. Patient ready for d/c tomorrow. Original Note: rounding note: Patient was unable to get the colonoscopy yesterday. Pending today for procedure. Tentative d/c plan: [facility]. Pending auth
[2025-06-29] MEDS: Magnesium Sulfate 4 GM Ivpb 4 GM/50 ML BAG IV (08:53)
--- NOTE | 2025-06-29 11:46 | PD.RESPRO ---
Documentation for date of: 06/29/25 Subjective Subjective Interval history: The patient was seen and examined at the bedside this morning. He was really upset, as he has been drinking GoLytely for past 3 days, but finally he is clear, and will possibly get colonoscopy today. He denied any chest pain, SOB, orthopnea or PND, palpitations. He reported drinking about half the gallon of Golytely and has been having frequent bowel movement not tinged with blood. Vitals were fairly stable with soft blood pressure, heart rate in 80s, saturating 98% on room air. Labs were significant for hemoglobin 8.6, with other chemistry panel WNL, except for magnesium 1.5. Ordered magnesium sulfate 4 g IV. Recommended to start the patient on Plavix 75 Mg daily, as anticoagulation has been cleared by GI, and needs to be in DAPT due to recent iliac stent. We will add aspirin later. Continue with metoprolol succinate 25 Mg daily and Continue with atorvastatin 80 Mg daily. Patient will benefit from ICD placement outpatient if does not improve with GDMT. Exam Vital Signs Temp Pulse Resp BP Pulse Ox O2 Del Method O2 Flow Rate 97.6 F 94 14 110/66 98 Room Air 3 06/29/25 08:00 06/29/25 08:43 06/29/25 08:00 06/29/25 08:43 06/29/25 08:00 06/29/25 08:00 06/25/25 17:20 Narrative Exam General: No acute distress, Alert and Oriented x 3 HEENT: Moist mucous membranes, oropharynx clear Neck: Supple, No masses, No JVD CVS: S1S2 Regular rate and rhythm, No murmurs, rubs or gallops Lungs: Clear to auscultation with no accessory use, no wheeze no rhonchi Abd: Soft, NT/ND, +BS, no organomegaly Ext: No edema, warm and well perfused Skin: No rash Psych: upset about not getting colonoscopy so far Objective Labs 06/29/25 03:56 06/29/25 03:56 Labs: Laboratory Results - last 24 hr 06/29/25 03:56 WBC 7.0 RBC 2.83 L Hgb 8.6 L Hct 25.9 L MCV 92 MCH 30.4 MCHC 33.2 RDW Std Deviation 51.5 H Plt Count 144 Neut % (Auto) 72 Lymph % (Auto) 15 [place] % (Auto) 8 Eos % (Auto) 4 Baso % (Auto) 1 Neut # (Auto) 5.0 Lymph # (Auto) 1.0 [place] # (Auto) 0.6 Eos # (Auto) 0.3 Baso # (Auto) 0.1 Immature Gran # (Auto) 0.06 H Absolute Nucleated RBC 0.00 Immature Gran % 1 H Nucleated RBC % 0 Sodium 144 Potassium 4.3 Chloride 109 H Carbon Dioxide 26.7 Anion Gap 8 BUN 8 L Creatinine 0.8 Estim Creat Clear Calc 117.0 eGFR > 60 BUN/Creatinine Ratio 10 L Glucose 99 Calculated Osmolality 285 Calcium 8.1 L Corrected Calcium 8.8 Phosphorus 3.3 Magnesium 1.5 L Total Bilirubin 0.8 AST 67 H ALT 60 H Alkaline Phosphatase 82 D Total Protein 5.3 L Albumin 3.1 L Globulin 2.2 L Albumin/Globulin Ratio 1.4 Quality Measures Quality Measures sepsis Current suspected stage: ruled out Possible source: GI tract/intra-abdominal Blood cultures ordered: no Antibiotic ordered: No Assessment & Plan Assessment Current Active Medications: Generic Name Dose Route Start Last Admin Trade Name Freq PRN Reason Stop Dose Admin Acetaminophen 325 mg 06/24/25 12:54 Acetaminophen 325 Mg Tablet PO 07/24/25 12:53 Q6H PRN Pain (1-3) & Fever >100.4 Atorvastatin Calcium 80 mg 06/26/25 21:00 06/28/25 20:47 Atorvastatin Calcium 20 Mg Tablet PO 07/26/25 20:59 80 mg HS CHYNA Administration Clopidogrel Bisulfate 75 mg 06/28/25 13:45 06/29/25 08:42 Clopidogrel Bisulfate 75 Mg Tablet PO 07/28/25 13:44 75 mg QDAY CHYNA Administration Magnesium Sulfate 4 gm in 50 mls @ 12.5 mls/hr 06/29/25 08:34 06/29/25 08:53 Magnesium Sulfate Ivpb IV 06/29/25 12:33 12.5 mls/hr X1 ONE Administration Metoprolol Succinate 25 mg 06/26/25 10:00 06/29/25 08:43 Metoprolol Succinate Xl 25 Mg Tabcr PO 07/26/25 09:59 25 mg QDAY CHYNA Administration Ondansetron HCl 4 mg 06/24/25 12:56 Ondansetron Inj 2 Mg/Ml Inj 2 Ml IVP 07/24/25 12:55 Q6H PRN NAUSEA OR VOMITING Protocol Pantoprazole Sodium 40 mg 06/28/25 21:00 06/29/25 08:43 Pantoprazole 40 Mg Tablet PO 07/28/25 20:59 40 mg BID CHYNA Administration Protocol Polyethylene Glycol 17 gm 06/26/25 15:00 06/29/25 08:46 Polyethylene Glycol 17 Gm Packet PO 07/26/25 14:59 17 gm QDAY CHYNA Administration Sucralfate 1 gm 06/27/25 21:00 06/29/25 11:25 Sucralfate Susp 1 Gm/10 Ml Udc PO 07/27/25 20:59 1 gm ACHS CHYNA Administration Tamsulosin HCl 0.4 mg 06/26/25 14:45 06/29/25 08:43 Tamsulosin Hcl 0.4 Mg Capsule PO 07/26/25 14:44 0.4 mg QDAY CHYNA Administration Plan Mr. King is a 65-year-old male with past medical history of heart failure with reduced ejection fraction, EF 20 to 25% 03/2025, combined systolic and diastolic heart failure, low-flow moderate AV stenosis, hypertension, hyperlipidemia, infrarenal abdominal aortic aneurysm, peripheral arterial disease status post iliac stent, hyperlipidemia, former cocaine use, chronic smoker (30 pack years), benign prostate hypertrophy, Cirrhosis and Hepatitis C infection who presented to [facility] emergency department on June 24, 2025 with a chief complaint of dark stools. Cardiology consulted in the setting of heart failure with reduced ejection fraction, EF 20 to 25% noted in March. #Heart failure with reduced ejection fraction, EF 20-25%, March 2025 #Combined systolic and diastolic heart failure #Low Flow Moderate AV stenosis Patient has history of heart failure with reduced ejection fraction, currently seems to be euvolemic not in any acute decompensation. Patient currently stable on room air, minimal peripheral edema noted, does not seem to be in any acute exacerbation. Echocardiogram March 2025 shows Dialated cardiomyopathy. Dilated LV. Severe systolic dysfunction. Severe global hypokinesis. Estimated EF 20-30% %. Grade 2 diastolic dysfunction. Mild RV dilatation. Mild RV systolic dysufnction. Mild to modertae AV stenosis. Low gradient due to low EF. Mean PG 12-14 mm hg but JE aroind 1.1 to 1.2 sq cm which indicates at least moderate stenosis. Mild MAC. Mild MRAdi Mild TR. Trace AI. Mildly dilated LA volume 40.5 mL/m? EKG 06/24 shows sinus tachycardia, rate 108, inverted T waves noted on V4, V5, V6, QRSd 103 Lipid panel 05/01/2025 shows triglycerides 67, cholesterol 127, LDL 81, HDL 33, A1c 5.4, TSH 1.2 RCRI score: 2 points, patient has history of congestive heart failure and EKG changes suggestive of ischemic disease METs greater than 4, patient is independent outpatient. Plan: - Strict intake and output - Fluid restriction 1500 cc - Daily weight - Continue with Metoprolol XL 25mg daily for now, resume entresto 1 tab daily when BP is more stable and later add spironolactone 0.5 tab of 25mg daily. - Patient will benefit from ICD placement outpatient if does not improve with GDMT. - Close monitoring outpatient for low flow moderate AV stenosis Acute GI bleed and Anemia: Patient admitted to that time to the ICU due to hypovolemic shock secondary to presumed blood loss. Had melena for last few days on asirin and plavix. EGD also performed on 06/25 which demonstrated esophagitis, gastritis and a duodenal ulcer with no signs of bleeding at the time of procedure. Recommended to continue low-sodium peptic ulcer diet with Protonix 40 mg daily and avoidance of NSAIDs. Biopsy results are also pending. Antibiotics and octreotide have been discontinued. await colonoscopy reports #Infrarenal abdominal aortic aneurysm, 3.3 cm #Peripheral arterial disease #S/p Iliac Stent #Narrowing of left common iliac artery. Patient has aortoiliac stent, CT chest abdomen pelvis shows severe narrowing left common iliac, patient does have a aortic iliac stent. Bilateral pedal pulses palpated, no evidence of limb ischemia, left foot amputation noted. MONICO (05/01/2025): Right ankle/Brachial index 1.1 and Left ankle/Brachial index 1.1 - Start on clopidogrel 75mg daily after colonoscopy is done. - Outpatient follow-up #Chronic smoking history, 30 pack years #Acute GI bleed, likely upper #Melena #Cirrhosis, on imaging, ?Decompensated cirrhosis #Transaminitis #Benign prostate hypertrophy #Hyperchloremic normal anion gap acidosis #Elevated BUN #Leukocytosis #Normocytic normochromic anemia #Hepatitis C Management as per Hospitalist team Thank you for cardiology consultation. We appreciate the opportunity to participate in this patient care. We will continue to follow-up on this patient. The patient's management plan was discussed with my attending physician MD Vasu Sotelo MD, PGY3 Attending Provider Attestation/Addendum I have personally seen and examined the patient separately on the above date of service and discussed the plan of care with the resident. I reviewed the resident Dr. Vasu Whitlock consultation progress note and agree with the resident findings and plan in the note above and have also edited the documentation to reflect my findings and plan. Ernie Mcclelland M.D. Interventional Cardiology
--- NOTE | 2025-06-29 11:54 | PD.RESPRO ---
Documentation for date of: 06/29/25 Subjective Subjective Interval history: Pt examined at bedside today. No acute overnight events. Pt reports he is doing well. He is ready for the colonoscopy. He reports he has not had bowel movement this morning but as for last one, he was not yet clear for colonoscopy. No other complaints at this time. Exam Vital Signs Temp Pulse Resp BP Pulse Ox O2 Del Method O2 Flow Rate 97.6 F 94 14 110/66 98 Room Air 3 06/29/25 08:00 06/29/25 08:43 06/29/25 08:00 06/29/25 08:43 06/29/25 08:00 06/29/25 08:00 06/25/25 17:20 Narrative Exam General: No acute distress, Alert and Oriented x 3 HEENT: Moist mucous membranes, oropharynx clear Neck: Supple, No masses, No JVD CVS: S1S2 Regular rate and rhythm, No murmurs, rubs or gallops Lungs: Clear to auscultation with no accessory use, no wheeze no rhonchi Abd: Soft, NT/ND, +BS, no organomegaly Ext: No edema, warm and well perfused Skin: No rash Psych: upset about not getting colonoscopy so far Objective Labs 06/30/25 04:01 06/30/25 04:01 Labs: Laboratory Results - last 24 hr 06/29/25 03:56 WBC 7.0 RBC 2.83 L Hgb 8.6 L Hct 25.9 L MCV 92 MCH 30.4 MCHC 33.2 RDW Std Deviation 51.5 H Plt Count 144 Neut % (Auto) 72 Lymph % (Auto) 15 [place] % (Auto) 8 Eos % (Auto) 4 Baso % (Auto) 1 Neut # (Auto) 5.0 Lymph # (Auto) 1.0 [place] # (Auto) 0.6 Eos # (Auto) 0.3 Baso # (Auto) 0.1 Immature Gran # (Auto) 0.06 H Absolute Nucleated RBC 0.00 Immature Gran % 1 H Nucleated RBC % 0 Sodium 144 Potassium 4.3 Chloride 109 H Carbon Dioxide 26.7 Anion Gap 8 BUN 8 L Creatinine 0.8 Estim Creat Clear Calc 117.0 eGFR > 60 BUN/Creatinine Ratio 10 L Glucose 99 Calculated Osmolality 285 Calcium 8.1 L Corrected Calcium 8.8 Phosphorus 3.3 Magnesium 1.5 L Total Bilirubin 0.8 AST 67 H ALT 60 H Alkaline Phosphatase 82 D Total Protein 5.3 L Albumin 3.1 L Globulin 2.2 L Albumin/Globulin Ratio 1.4 Quality Measures Quality Measures sepsis Current suspected stage: ruled out Possible source: GI tract/intra-abdominal Blood cultures ordered: no Antibiotic ordered: Yes Assessment & Plan Assessment Current Active Medications: Generic Name Dose Route Start Last Admin Trade Name Freq PRN Reason Stop Dose Admin Acetaminophen 325 mg 06/24/25 12:54 Acetaminophen 325 Mg Tablet PO 07/24/25 12:53 Q6H PRN Pain (1-3) & Fever >100.4 Atorvastatin Calcium 80 mg 06/26/25 21:00 06/28/25 20:47 Atorvastatin Calcium 20 Mg Tablet PO 07/26/25 20:59 80 mg HS CHYNA Administration Clopidogrel Bisulfate 75 mg 06/28/25 13:45 06/29/25 08:42 Clopidogrel Bisulfate 75 Mg Tablet PO 07/28/25 13:44 75 mg QDAY CHYNA Administration Magnesium Sulfate 4 gm in 50 mls @ 12.5 mls/hr 06/29/25 08:34 06/29/25 08:53 Magnesium Sulfate Ivpb IV 06/29/25 12:33 12.5 mls/hr X1 ONE Administration Metoprolol Succinate 25 mg 06/26/25 10:00 06/29/25 08:43 Metoprolol Succinate Xl 25 Mg Tabcr PO 07/26/25 09:59 25 mg QDAY CHYNA Administration Ondansetron HCl 4 mg 06/24/25 12:56 Ondansetron Inj 2 Mg/Ml Inj 2 Ml IVP 07/24/25 12:55 Q6H PRN NAUSEA OR VOMITING Protocol Pantoprazole Sodium 40 mg 06/28/25 21:00 06/29/25 08:43 Pantoprazole 40 Mg Tablet PO 07/28/25 20:59 40 mg BID CHYNA Administration Protocol Polyethylene Glycol 17 gm 06/26/25 15:00 06/29/25 08:46 Polyethylene Glycol 17 Gm Packet PO 07/26/25 14:59 17 gm QDAY CHYNA Administration Sucralfate 1 gm 06/27/25 21:00 06/29/25 11:25 Sucralfate Susp 1 Gm/10 Ml Udc PO 07/27/25 20:59 1 gm ACHS CHYNA Administration Tamsulosin HCl 0.4 mg 06/26/25 14:45 06/29/25 08:43 Tamsulosin Hcl 0.4 Mg Capsule PO 07/26/25 14:44 0.4 mg QDAY CHYNA Administration Plan Assessment Wood King is a 65M with MHx of HFrEF, EF 20 to 25% 03/2025, hepatitis C infection, infrarenal AAA, PAD s/p iliac stent, HLD, BPH who presented to the ED ([id number]) with a chief complaint of dark stools. ICU team consulted in setting of shock and marked tachycardia likely 2/2 active GI bleed. In ICU, BP was kept >65mmHg with Levophed 0.05. #Acute GI bleed, likely upper #Melena #Normocytic normochromic anemia (2/2 GI Bleed) #Weakness Patient reported newfound tinges of blood on stool that is lightening from original black otherwise. Hgb 8.6 today and stable. Agustin?[place] bleeding score: 17 points, high risk GI bleed EGD ([id number]): Esophagitis, Gastritis, and duodenal ulcer in context of erythematous duodenopathy. Will speak with GI after colonoscopy once we are able to resume DAPT as pt has recent iliac stent. Plan: - GI consulted, Appreciate recommendations - Colonoscopy today - SBP prophylaxis: Ceftriaxone daily - Continue Protonix IV 40mg bid - Trend CBC #HFrEF, EF 20-25% #Combined systolic and diastolic heart failure #Mild to moderate AV stenosis Patient on GDMT at home: metoprolol succinate XR 25mg, losartan 25mg, spirinolactone 25mg, and dapagliflozin 10mg Qday Echo (): Dialated cardiomyopathy. Dilated LV. Severe systolic dysfunction. Severe global hypokinesis. Estimated EF 20-30% %. Grade 2 diastolic dysfunction. Mild RV systolic dysufnction. Plan: - Strict intake and output - Keep on fluid restriction 1500 cc - Daily weight - On GDMT outpatient, follows up with ribbon hanking machine operator Dr. Ernie Mcclelland - resume entresto 1 tab daily when BP is more stable and later add spironolactone 0.5 tab of 25mg daily, per cardiology. - Cardiology consulted, recommends ICD placement, and resuming GDMT as tolerated. - Continue Metoprolol 25 XL #Infrarenal abdominal aortic aneurysm, 3.3 cm #Peripheral arterial disease #AortoIliac Stent b/l #Narrowing of left common iliac artery. (findings of CT chest and abdomen) Patient on Aspirin 81mg and atorvastatin 80mg Qday. ASA held in the setting of a duodenal ulcer prone to bleeding. Plan: -Resume Plavix 75 mg qday after completion of colonoscopy. -Defer to cardiology when to resume aspirin #Active hep C infection #Transaminitis in May 2025 hepatitis panel shows positive hep C antibody, HCV viral load of 2.5 million. 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 Improved AST 84, and ALT 69 (06/23) - Follow-up with infectious disease outpatient #Hyperlipidemia TG 67, Ch 127, LDL 81, HDL 33 (05/01/2025) Resumed patient on atorvastatin 80 mg at bedtime. #Benign prostate hypertrophy Resumed patient on Flomax 0.4mg. # Chronic smoking history, 30 pack years Not an active smoker currently, history of 30 pack years, no lung nodules/lymphadenopathy noted on CTA - Outpatient screening as appropriate #Hypovolemic/hemorrhagic shock, resolved #Hyperchloremic normal anion gap acidosis, resolved #UTI, ruled out Pt reports dysuria. UA was positive for turbid urine with 1+ protein, leukocyte esterase, RBC 18, WBC 723, no bacteria. ? MRSA screen: pending ? Blood cultures: negative after 48h ? Urine culture: negative (06/24) Health Maintanance: DVT prophylaxis: SCDs GI prophylaxis: Protonix twice daily BM: Miralax PO 17mg Qday Diet: 2g sodium Lines: Peripheral IV Code status: Full code #Health Maintenance Disposition: Telemetry DVT prophylaxis: SCDs GI prophylaxis: Protonix Diet: Clear Liquid Diet CODE STATUS: Full This case was discussed with my attending physician, Dr. Bagley. Tom Alcocer, PGY I Attending Provider Attestation/Addendum Patient had colonoscopy. He has hemorrhoids, diverticulosis, polyps. Patient had polypectomy. Will continue current treatment. I discussed with and supervised the resident physician who took care of this patient. I agree with the assessment and plan as above.
--- NOTE | 2025-06-29 21:25 | SUR.PHASEI ---
pt received to [facility]. alert and oriented. denies pain and nausea. vss. report from nurse moustapha.
--- NOTE | 2025-06-29 21:55 | SUR.PHASEI ---
report to jil atkins. transported to room via rjeff. pt alert and oriented. vss
[2025-06-29] MEDS: ATORVASTATIN CALCIUM 20 MG TABLET 80 MG PO (22:20)
[2025-06-30] VITALS (13 sets, daily range): BP systolic 100–124; BP diastolic 58–79; PULSE 76–180; RESP 15–25; TEMP 36–37.1; O2SAT 94–97
[2025-06-30 04:57] LABS: Basophils # (Auto) 0.0 Thou/mm3 (0.0-0.2); Basophils % (Auto) 1 % (0-2.5); Eosinophils # (Auto) 0.3 Thou/mm3 (0.0-0.5); Eosinophils % (Auto) 4 % (0-10); Hematocrit 26.5 % (41.0-53.0); Immature Granulocytes Auto 0.08 Thou/mm3 (0.00-0.00); Lymphocytes # (Auto) 1.1 Thou/mm3 (1.0-4.8); Lymphocytes % (Auto) 14 % (10-50); Mean Corpuscular HGB Conc 32.1 g/dl (31.0-37.0); Mean Corpuscular Hemoglobin 29.5 pg (25.0-35.0); Mean Corpuscular Volume 92 fL (80-100); Monocytes # (Auto) 0.7 Thou/mm3 (0.0-0.8); Monocytes % (Auto) 9 % (0-12); Neutrophils # (Auto) 5.5 Thou/mm3 (1.8-7.7); Neutrophils % (Auto) 72 % (37-80); Nucleated Red Blood Cell # 0.00 Thou/mm3 (0.00-0.00); Nucleated Red Blood Cell % 0 /100 WBC (0); Platelet Count 143 Thou/mm3 (140-440); RDW Standard Deviation 53.7 fL (35.1-43.9); Red Blood Count 2.88 Miln/mm3 (4.50-5.90); White Blood Count 7.6 Thou/mm3 (3.8-10.6)
[2025-06-30 05:42] LABS: Alanine Aminotransferase 59 U/L (10-49); Albumin, Serum 3.0 gm/dL (3.4-4.8); Albumin/Globulin Ratio 1.4 (1.2-2.2); Alkaline Phosphatase 92 U/L (46-116); Anion Gap 9 (7-16); Aspartate Amino Transferase 70 U/L (0-34); BUN/Creatinine Ratio 8 Ratio (12-20); Bilirubin,Total 0.9 mg/dL (0.3-1.2); Blood Urea Nitrogen 7 mg/dL (9-23); Calcium 8.1 mg/dL (8.3-10.6); Calcium (Corrected) 8.9 mg/dL (8.5-10.1); Carbon Dioxide 27.1 mMol/L (20.0-31.0); Chloride 107 mMol/L (98-107); Creatinine (Component) 0.9 mg/dL (0.6-1.3); Estimated Creatinine Clearance 102.7 mL/min (>60); Globulin 2.2 gm/dL (2.3-3.5); Glucose 94 mg/dL (74-106); Magnesium 1.8 mg/dL (1.6-2.6); Osmolality,Calculated 282 (275-295); Phosphorous 4.1 mg/dL (2.4-5.1); Potassium 4.0 mMol/L (3.4-5.1); Sodium 143 mMol/L (136-145); Total Protein 5.2 gm/dL (5.7-8.2); eGFR > 60 See Note
[2025-06-30 05:51] LABS: Hemoglobin 8.5 g/dL (13.5-16.0)
[2025-06-30] MEDS: TAMSULOSIN HCL 0.4 MG CAPSULE PO (08:22)
[2025-06-30] MEDS: POLYETHYLENE GLYCOL 17 GM PACKET PO (08:22)
[2025-06-30] MEDS: PANTOPRAZOLE 40 MG TABLET PO ×2 (08:22→20:12)
[2025-06-30] MEDS: METOPROLOL SUCCINATE XL 25 MG TABCR PO ×2 (08:23→13:30)
[2025-06-30] MEDS: CLOPIDOGREL BISULFATE 75 MG TABLET PO (08:23)
[2025-06-30] MEDS: SUCRALFATE SUSP 1 GM/10 ML UDC PO ×4 (08:23→20:12)
[2025-06-30] MEDS: Magnesium Sulfate 2 GM Ivpb 2 GM/50 ML BAG IV (08:27)
[2025-06-30] MEDS: ASPIRIN EC 81 MG TABEC PO (09:18)
[2025-06-30] MEDS: MUPIROCIN OINT 2% 15 GM TUBE TOP (12:10)
--- NOTE | 2025-06-30 13:22 | EKG_ITS ---
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
[2025-06-30 13:28] LABS: Magnesium 1.8 mg/dL (1.6-2.6); Phosphorous 4.1 mg/dL (2.4-5.1)
[2025-06-30] MEDS: Magnesium Sulfate 4 GM Ivpb 4 GM/50 ML BAG IV (13:30)
[2025-06-30 14:03] LABS: Alanine Aminotransferase 63 U/L (10-49); Albumin, Serum 3.2 gm/dL (3.4-4.8); Albumin/Globulin Ratio 1.5 (1.2-2.2); Alkaline Phosphatase 100 U/L (46-116); Anion Gap 5 (7-16); Aspartate Amino Transferase 78 U/L (0-34); BUN/Creatinine Ratio 8 Ratio (12-20); Bilirubin,Total 0.7 mg/dL (0.3-1.2); Blood Urea Nitrogen 8 mg/dL (9-23); Calcium 8.2 mg/dL (8.3-10.6); Calcium (Corrected) 8.8 mg/dL (8.5-10.1); Carbon Dioxide 27.0 mMol/L (20.0-31.0); Chloride 109 mMol/L (98-107); Creatinine (Component) 1.0 mg/dL (0.6-1.3); Estimated Creatinine Clearance 92.6 mL/min (>60); Globulin 2.2 gm/dL (2.3-3.5); Glucose 104 mg/dL (74-106); Magnesium 2.4 mg/dL (1.6-2.6); Osmolality,Calculated 279 (275-295); Phosphorous 3.5 mg/dL (2.4-5.1); Potassium 4.2 mMol/L (3.4-5.1); Sodium 141 mMol/L (136-145); Total Protein 5.4 gm/dL (5.7-8.2); eGFR > 60 See Note
--- NOTE | 2025-06-30 15:24 | ESPR_ITS ---
<Statement entered by Bubba Saldana MD - 06/30/25 16:10> I have reviewed the note and agree with the resident's assessment & plan with exceptions as below. I have personally reviewed labs, imaging, home meds/prior records, examined the patient, formulated and discussed management plan with the IM team. Patient examined at bedside today. Patient was supposed to be discharged after patient had colonoscopy which showed diverticulosis and had some biopsies taken however patient did have a run of nonsustained V. tach seen on telemetry. Repleted patient's magnesium with 4 g as it was repleted with 2 g earlier for hypomagnesemia. Ordered repeat EKG as well. Informed cardiology about this and will give additional metoprolol XL 25 mg due to blood pressure constraint. Will continue with metoprolol XL 50 mg tomorrow. Will continue telemetry and order additional magnesium and phosphate labs. Cardiology on consult, appreciate recommendations. Resumed patient's aspirin today after colonoscopy as he is on dual antiplatelet therapy now as GI bleed seems to have resolved at this time. Repeat hematology and chemistry in the a.m. Bubba Saldana, PGY-2 Internal Medicine Documentation for date of: 06/30/25 Subjective Subjective Interval history: Pt examined at bedside today. No acute overnight events. Pt reports he is doing well. 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 No other complaints at this time. At 1257, patient goes into ventricular tachycardia for about couple minutes when the patient reports feeling dizzy. The IM team is promptly notified but the patient reverts to NSR soon after. Cardiology on board. Exam Vital Signs Temp Pulse Resp BP Pulse Ox O2 Del Method O2 Flow Rate 97.6 F 87 15 109/70 94 L Room Air 3 06/30/25 12:00 06/30/25 13:30 06/30/25 13:05 06/30/25 13:30 06/30/25 13:05 06/30/25 13:05 06/29/25 21:15 Narrative Exam General: No acute distress, Alert and Oriented x 3 HEENT: Moist mucous membranes, oropharynx clear Neck: Supple, No masses, No JVD CVS: S1S2 Regular rate and rhythm, No murmurs, rubs or gallops Lungs: Clear to auscultation with no accessory use, no wheeze no rhonchi Abd: Soft, NT/ND, +BS, no organomegaly Ext: No edema, warm and well perfused Skin: No rash Psych: upset about not getting colonoscopy so far Objective Labs 07/01/25 05:07 07/01/25 05:07 Labs: Laboratory Results - last 24 hr 06/30/25 06/30/25 06/30/25 04:01 04:01 04:01 WBC 7.6 RBC 2.88 L Hgb 8.5 L Hct 26.5 L MCV 92 MCH 29.5 MCHC 32.1 RDW Std Deviation 53.7 H Plt Count 143 Neut % (Auto) 72 Lymph % (Auto) 14 [place] % (Auto) 9 Eos % (Auto) 4 Baso % (Auto) 1 Neut # (Auto) 5.5 Lymph # (Auto) 1.1 [place] # (Auto) 0.7 Eos # (Auto) 0.3 Baso # (Auto) 0.0 Immature Gran # (Auto) 0.08 H Absolute Nucleated RBC 0.00 Immature Gran % 1 H Nucleated RBC % 0 Sodium 143 Potassium 4.0 Chloride 107 Carbon Dioxide 27.1 Anion Gap 9 BUN 7 L Creatinine 0.9 Estim Creat Clear Calc 102.7 eGFR > 60 BUN/Creatinine Ratio 8 L Glucose 94 Calculated Osmolality 282 Calcium 8.1 L Corrected Calcium 8.9 Phosphorus 4.1 4.1 Magnesium 1.8 1.8 Total Bilirubin 0.9 AST 70 H ALT 59 H Alkaline Phosphatase 92 Total Protein 5.2 L Albumin 3.0 L Globulin 2.2 L Albumin/Globulin Ratio 1.4 06/30/25 13:33 WBC RBC Hgb Hct MCV MCH MCHC RDW Std Deviation Plt Count Neut % (Auto) Lymph % (Auto) [place] % (Auto) Eos % (Auto) Baso % (Auto) Neut # (Auto) Lymph # (Auto) [place] # (Auto) Eos # (Auto) Baso # (Auto) Immature Gran # (Auto) Absolute Nucleated RBC Immature Gran % Nucleated RBC % Sodium 141 Potassium 4.2 Chloride 109 H Carbon Dioxide 27.0 Anion Gap 5 L BUN 8 L Creatinine 1.0 Estim Creat Clear Calc 92.6 eGFR > 60 BUN/Creatinine Ratio 8 L Glucose 104 Calculated Osmolality 279 Calcium 8.2 L Corrected Calcium 8.8 Phosphorus 3.5 Magnesium 2.4 Total Bilirubin 0.7 AST 78 H ALT 63 H Alkaline Phosphatase 100 Total Protein 5.4 L Albumin 3.2 L Globulin 2.2 L Albumin/Globulin Ratio 1.5 Quality Measures Quality Measures sepsis Current suspected stage: ruled out Possible source: GI tract/intra- abdominal Blood cultures ordered: no Antibiotic ordered: No Assessment & Plan Assessment Current Active Medications: Generic Name Dose Route Start Last Admin Trade Name Freq PRN Reason Stop Dose Admin Acetaminophen 325 mg 06/24/25 12:54 Acetaminophen 325 Mg Tablet PO 07/24/25 12:53 Q6H PRN Pain (1-3) & Fever >100.4 Aspirin 81 mg 06/30/25 09:00 06/30/25 09:18 Aspirin Ec 81 Mg Tabec PO 07/30/25 08:59 81 mg QDAY CHYNA Administration Atorvastatin Calcium 80 mg 06/26/25 21:00 06/29/25 22:20 Atorvastatin Calcium 20 Mg Tablet PO 07/26/25 20:59 80 mg HS CHYNA Administration Clopidogrel Bisulfate 75 mg 06/28/25 13:45 06/30/25 08:23 Clopidogrel Bisulfate 75 Mg Tablet PO 07/28/25 13:44 75 mg QDAY CHYNA Administration Magnesium Sulfate 4 gm in 50 mls @ 12.5 mls/hr 06/30/25 13:22 06/30/25 13:30 Magnesium Sulfate Ivpb IV 06/30/25 17:21 12.5 mls/hr X1 ONE Administration Metoprolol Succinate 50 mg 07/01/25 09:00 Metoprolol Succinate Xl 25 Mg Tabcr PO 07/31/25 08:59 QDAY CHYNA Ondansetron HCl 4 mg 06/24/25 12:56 Ondansetron Inj 2 Mg/Ml Inj 2 Ml IVP 07/24/25 12:55 Q6H PRN NAUSEA OR VOMITING Protocol Pantoprazole Sodium 40 mg 06/28/25 21:00 06/30/25 08:22 Pantoprazole 40 Mg Tablet PO 07/28/25 20:59 40 mg BID CHYNA Administration Protocol Polyethylene Glycol 17 gm 06/26/25 15:00 06/30/25 08:22 Polyethylene Glycol 17 Gm Packet PO 07/26/25 14:59 17 gm QDAY CHYNA Administration Sucralfate 1 gm 06/27/25 21:00 06/30/25 12:09 Sucralfate Susp 1 Gm/10 Ml Udc PO 07/27/25 20:59 1 gm ACHS CHYNA Administration Tamsulosin HCl 0.4 mg 06/26/25 14:45 06/30/25 08:22 Tamsulosin Hcl 0.4 Mg Capsule PO 07/26/25 14:44 0.4 mg QDAY CHYNA Administration Plan Assessment Wood King is a 65M with MHx of HFrEF, EF 20 to 25% 03/2025, hepatitis C infection, infrarenal AAA, PAD s/p iliac stent, HLD, BPH who presented to the ED ([id number]) with a chief complaint of dark stools. ICU team consulted in setting of shock and marked tachycardia likely 2/2 active GI bleed. In ICU, BP was kept >65mmHg with Levophed 0.05. #New Onset #Acute GI bleed, likely upper #Melena #Normocytic normochromic anemia (2/2 GI Bleed) #Weakness Patient reported newfound tinges of blood on stool that is lightening from original black otherwise. Hgb 8.6 today and stable. Agustin?Blatchford bleeding score: 17 points, high risk GI bleed EGD ([id number]): Esophagitis, Gastritis, and duodenal ulcer in context of erythematous duodenopathy. Colonoscopy ([id number]): Perianal hemorrhoids. Non-bleeding diverticuli in descending colon and sgmoid. Polypectomies along the transverse (1+3) and descending (1) colon. Plan: - GI consulted, Appreciate recommendations - Colonoscopy today - SBP prophylaxis: Ceftriaxone daily - Continue Protonix IV 40mg bid - Trend CBC #Non-sustained V-tachycardia The patient had one episode of NSVT this afternoon, and his Mg this morning was 1.8, was initially repleted with MgSO4 2 g. Likely 2/2 electrolyte depletion in the setting of golytely use for 3 days resulting in diarrhea in the setting of severe HFrEF. Plan: -Cardiology consulted, recommendations as follows, -Recommend to increase Metoprolol XL to 50mg daily. -Repleted further with MgSO4 4g IV. -Telemetry monitoring. -Recommended to maintain Mg and K greater than 2 and 4 at all the time. -Started on amiodarone drip as the patient is high risk for arrhythmia as LVEF is 20-25%, and as he has NSVT for about 15-20 sec, he was started on amiodarone drip. #HFrEF, EF 20-25% #Combined systolic and diastolic heart failure #Mild to moderate AV stenosis #h/o V-tach Patient on GDMT at home: metoprolol succinate XR 25mg, losartan 25mg, spirinolactone 25mg, and dapagliflozin 10mg Qday Echo (): Dialated cardiomyopathy. Dilated LV. Severe systolic dysfunction. Severe global hypokinesis. Estimated EF 20-30% %. Grade 2 diastolic dysfunction. Mild RV systolic dysufnction. Plan: - Strict intake and output - Keep on fluid restriction 1500 cc - Daily weight - On GDMT outpatient, follows up with [facility] specialist Dr. Ernie Mcclelland - resume entresto 1 tab daily when BP is more stable and later add spironolactone 0.5 tab of 25mg daily, per cardiology. - Cardiology consulted, recommends ICD placement, and resuming GDMT as tolerated. - Continue Metoprolol 25 XL - Keep Mg >2 and K >4 as a protective measure against degrading arrhythmias. #Infrarenal abdominal aortic aneurysm, 3.3 cm #Peripheral arterial disease #AortoIliac Stent b/l #Narrowing of left common iliac artery. (findings of CT chest and abdomen) Patient on Aspirin 81mg and atorvastatin 80mg Qday. ASA had been held in the setting of a duodenal ulcer prone to bleeding, resumed post-colonoscopy 06/30. Patient needs to be on DAPT due to recent iliac stent Plan: -Hold Plavix 75 mg qday for three days post-colonoscopy. Resume on 07/03. -Aspirin PO 81mg Qday. #Active hep C infection #Transaminitis in May 2025 hepatitis panel shows positive hep C antibody, HCV viral load of 2.5 million. 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 Improved AST 84, and ALT 69 (06/23) - Follow-up with infectious disease outpatient #Hyperlipidemia TG 67, Ch 127, LDL 81, HDL 33 (05/01/2025) Resumed patient on atorvastatin 80 mg at bedtime. #Benign prostate hypertrophy Resumed patient on Flomax 0.4mg. # Chronic smoking history, 30 pack years Not an active smoker currently, history of 30 pack years, no lung nodules/lymphadenopathy noted on CTA - Outpatient screening as appropriate #Hypovolemic/hemorrhagic shock, resolved #Hyperchloremic normal anion gap acidosis, resolved #UTI, ruled out Pt reports dysuria. UA was positive for turbid urine with 1+ protein, leukocyte esterase, RBC 18, WBC 723, no bacteria. ? MRSA screen: pending ? Blood cultures: negative after 48h ? Urine culture: negative (06/24) Health Maintanance: DVT prophylaxis: SCDs GI prophylaxis: Protonix twice daily BM: Miralax PO 17mg Qday Diet: 2g sodium Lines: Peripheral IV Code status: Full code This case was discussed with my attending physician, Dr. Bagley, and senior resident, Dr Shana Alcocer, DO PGY I Attending Provider Attestation/Addendum Patient had non sustained VT. Need to replace Mg. Follow work up for GI bleed. BP stable. No chest pain reported. Discussed with housestaff.
--- NOTE | 2025-06-30 15:35 | PC.SS ---
Patient d/c held due to patient having arrhythmia. SS updated facility
--- NOTE | 2025-06-30 15:48 | ESPR_ITS ---
Documentation for date of: 06/30/25 Subjective Subjective Interval history: The patient was seen and examined at the bedside this morning. He reported doing well and wanted to go home. Colonoscopy was done and found to have hemorrhoids, diverticulosis and 3 polyps that were resected. This afternoon he had 1 NSVT episode and was ordered 4g MgSO4 by primary team. He denied any chest pain, SOB, orthopnea or PND, palpitations. Vitals were fairly stable with soft blood pressure, heart rate in 80s, saturating 98% on room air. Labs were significant for hemoglobin 8.5, with other chemistry panel WNL, except for magnesium 1.8. Ordered magnesium sulfate 2 g IV initially in the morning. Recommended to start the patient on Plavix 75 Mg daily, and aspirin as anticoagulation has been cleared by GI, and needs to be in DAPT due to recent iliac stent. Metoprolol succinate 25 Mg daily and titrate up as tolorated. Continue with atorvastatin 80 Mg daily. Started on amiodarone drip as the patient is high risk for arrhythmia as LVEF is 20-25%, and as he has NSVT for about 15-20 sec, he was started on amiodarone drip and will be transition to oral amiodarone 200 mg twice daily which can be later be decreased to 200 mg once daily as outpatient in the next few weeks. Patient will benefit from ICD placement as outpatient if does not improve with maximal directed GDMT for at least 3 months. Patient was diagnosed with severe systolic congestive heart failure only last month and has been started on medical therapy for the same. Patient recommended to follow-up with cardiology regularly and explaining the importance of continuing with all the medications. Exam Vital Signs Temp Pulse Resp BP Pulse Ox O2 Del Method O2 Flow Rate 97.6 F 87 15 109/70 94 L Room Air 3 06/30/25 12:00 06/30/25 13:30 06/30/25 13:05 06/30/25 13:30 06/30/25 13:05 06/30/25 13:06/29/25 21:15 Narrative Exam General: No acute distress, Alert and Oriented x 3 HEENT: Moist mucous membranes, oropharynx clear Neck: Supple, No masses, No JVD CVS: S1S2 Regular rate and rhythm, No murmurs, rubs or gallops Lungs: Clear to auscultation with no accessory use, no wheeze no rhonchi Abd: Soft, NT/ND, +BS, no organomegaly Ext: No edema, warm and well perfused Skin: No rash Psych: upset about not getting colonoscopy so far Objective Labs 06/30/25 04:01 06/30/25 13:33 Labs: Laboratory Results - last 24 hr 06/30/25 06/30/25 06/30/25 04:01 04:01 04:01 WBC 7.6 RBC 2.88 L Hgb 8.5 L Hct 26.5 L MCV 92 MCH 29.5 MCHC 32.1 RDW Std Deviation 53.7 H Plt Count 143 Neut % (Auto) 72 Lymph % (Auto) 14 [place] % (Auto) 9 Eos % (Auto) 4 Baso % (Auto) 1 Neut # (Auto) 5.5 Lymph # (Auto) 1.1 [place] # (Auto) 0.7 Eos # (Auto) 0.3 Baso # (Auto) 0.0 Immature Gran # (Auto) 0.08 H Absolute Nucleated RBC 0.00 Immature Gran % 1 H Nucleated RBC % 0 Sodium 143 Potassium 4.0 Chloride 107 Carbon Dioxide 27.1 Anion Gap 9 BUN 7 L Creatinine 0.9 Estim Creat Clear Calc 102.7 eGFR > 60 BUN/Creatinine Ratio 8 L Glucose 94 Calculated Osmolality 282 Calcium 8.1 L Corrected Calcium 8.9 Phosphorus 4.1 4.1 Magnesium 1.8 1.8 Total Bilirubin 0.9 AST 70 H ALT 59 H Alkaline Phosphatase 92 Total Protein 5.2 L Albumin 3.0 L Globulin 2.2 L Albumin/Globulin Ratio 1.4 06/30/25 13:33 WBC RBC Hgb Hct MCV MCH MCHC RDW Std Deviation Plt Count Neut % (Auto) Lymph % (Auto) [place] % (Auto) Eos % (Auto) Baso % (Auto) Neut # (Auto) Lymph # (Auto) [place] # (Auto) Eos # (Auto) Baso # (Auto) Immature Gran # (Auto) Absolute Nucleated RBC Immature Gran % Nucleated RBC % Sodium 141 Potassium 4.2 Chloride 109 H Carbon Dioxide 27.0 Anion Gap 5 L BUN 8 L Creatinine 1.0 Estim Creat Clear Calc 92.6 eGFR > 60 BUN/Creatinine Ratio 8 L Glucose 104 Calculated Osmolality 279 Calcium 8.2 L Corrected Calcium 8.8 Phosphorus 3.5 Magnesium 2.4 Total Bilirubin 0.7 AST 78 H ALT 63 H Alkaline Phosphatase 100 Total Protein 5.4 L Albumin 3.2 L Globulin 2.2 L Albumin/Globulin Ratio 1.5 Quality Measures Quality Measures sepsis Current suspected stage: ruled out Possible source: GI tract/intra- abdominal Blood cultures ordered: no Antibiotic ordered: No Assessment & Plan Assessment Current Active Medications: Generic Name Dose Route Start Last Admin Trade Name Freq PRN Reason Stop Dose Admin Acetaminophen 325 mg 06/24/25 12:54 Acetaminophen 325 Mg Tablet PO 07/24/25 12:53 Q6H PRN Pain (1-3) & Fever >100.4 Aspirin 81 mg 06/30/25 09:00 06/30/25 09:18 Aspirin Ec 81 Mg Tabec PO 07/30/25 08:59 81 mg QDAY CHYNA Administration Atorvastatin Calcium 80 mg 06/26/25 21:00 06/29/25 22:20 Atorvastatin Calcium 20 Mg Tablet PO 07/26/25 20:59 80 mg HS CHYNA Administration Clopidogrel Bisulfate 75 mg 06/28/25 13:45 06/30/25 08:23 Clopidogrel Bisulfate 75 Mg Tablet PO 07/28/25 13:44 75 mg QDAY CHYNA Administration Magnesium Sulfate 4 gm in 50 mls @ 12.5 mls/hr 06/30/25 13:22 06/30/25 13:30 Magnesium Sulfate Ivpb IV 06/30/25 17:21 12.5 mls/hr X1 ONE Administration Metoprolol Succinate 50 mg 07/01/25 09:00 Metoprolol Succinate Xl 25 Mg Tabcr PO 07/31/25 08:59 QDAY CHYNA Ondansetron HCl 4 mg 06/24/25 12:56 Ondansetron Inj 2 Mg/Ml Inj 2 Ml IVP 07/24/25 12:55 Q6H PRN NAUSEA OR VOMITING Protocol Pantoprazole Sodium 40 mg 06/28/25 21:00 06/30/25 08:22 Pantoprazole 40 Mg Tablet PO 07/28/25 20:59 40 mg BID CHYNA Administration Protocol Polyethylene Glycol 17 gm 06/26/25 15:00 06/30/25 08:22 Polyethylene Glycol 17 Gm Packet PO 07/26/25 14:59 17 gm QDAY CHYNA Administration Sucralfate 1 gm 06/27/25 21:00 06/30/25 12:09 Sucralfate Susp 1 Gm/10 Ml Udc PO 07/27/25 20:59 1 gm ACHS CHYNA Administration Tamsulosin HCl 0.4 mg 06/26/25 14:45 06/30/25 08:22 Tamsulosin Hcl 0.4 Mg Capsule PO 07/26/25 14:44 0.4 mg QDAY CHYNA Administration Plan Mr. King is a 65-year-old male with past medical history of heart failure with reduced ejection fraction, EF 20 to 25% 03/2025, combined systolic and diastolic heart failure, low-flow moderate AV stenosis, hypertension, hyperlipidemia, infrarenal abdominal aortic aneurysm, peripheral arterial disease status post iliac stent, hyperlipidemia, former cocaine use, chronic smoker (30 pack years), benign prostate hypertrophy, Cirrhosis and Hepatitis C infection who presented to [facility] emergency department on June 24, 2025 with a chief complaint of dark stools. Cardiology consulted in the setting of heart failure with reduced ejection fraction, EF 20 to 25% noted in March. #NSVT The patient had one episode of NSVT this afternoon on 06/30/2025, and his Mg this morning was 1.8, was initially repleted with MgSO4 IV 4 g. Likely 2/2 electrolyte depletion in the setting of golytely use for 3 days resulting in diarrhea in the setting of severe HFrEF. -Recommend to increase Metoprolol XL to 50mg daily. -Repleted further with MgSO4 4g IV. -Telemetry monitoring. -Recommended to maintain Mg and K greater than 2 and 4 at all the time. -Started on amiodarone drip as the patient is high risk for arrhythmia as LVEF is 20-25%, and as he has NSVT for about 15-20 sec, he was started on amiodarone drip and will be transition to oral amiodarone 200 mg twice daily which can be later be decreased to 200 mg once daily as outpatient in the next few weeks. -Patient will benefit from ICD placement as outpatient if does not improve with maximal directed GDMT for at least 3 months. Patient was diagnosed with severe systolic congestive heart failure only last month and has been started on medical therapy for the same. Patient recommended to follow-up with cardiology regularly and explaining the importance of continuing with all the medications. #Heart failure with reduced ejection fraction, EF 20-25%, March 2025 #Combined systolic and diastolic heart failure #Low Flow Moderate AV stenosis Patient has history of heart failure with reduced ejection fraction, currently seems to be euvolemic not in any acute decompensation. Patient currently stable on room air, minimal peripheral edema noted, does not seem to be in any acute exacerbation. Echocardiogram March 2025 shows Dialated cardiomyopathy. Dilated LV. Severe systolic dysfunction. Severe global hypokinesis. Estimated EF 20-30% %. Grade 2 diastolic dysfunction. Mild RV dilatation. Mild RV systolic dysufnction. Mild to modertae AV stenosis. Low gradient due to low EF. Mean PG 12-14 mm hg but JE aroind 1.1 to 1.2 sq cm which indicates at least moderate stenosis. Mild MAC. Mild MR. Mild TR. Trace AI. Mildly dilated LA volume 40.5 mL/m? EKG 06/24 shows sinus tachycardia, rate 108, inverted T waves noted on V4, V5, V6, QRSd 103 Lipid panel 05/01/2025 shows triglycerides 67, cholesterol 127, LDL 81, HDL 33, A1c 5.4, TSH 1.2 RCRI score: 2 points, patient has history of congestive heart failure and EKG changes suggestive of ischemic disease METs greater than 4, patient is independent outpatient. Plan: - Strict intake and output - Fluid restriction 1500 cc - Daily weight - Increase Metoprolol XL to 50mg daily, resume entresto 1 tab daily when BP is more stable and later add spironolactone 0.5 tab of 25mg daily. - Patient will benefit from ICD placement outpatient if does not improve with GDMT. - Close monitoring outpatient for low flow moderate AV stenosis Acute GI bleed and Anemia: Patient admitted to that time to the ICU due to hypovolemic shock secondary to presumed blood loss. Had melena for last few days on asirin and plavix. EGD also performed on 06/25 which demonstrated esophagitis, gastritis and a duodenal ulcer with no signs of bleeding at the time of procedure. Recommended to continue low-sodium peptic ulcer diet with Protonix 40 mg daily and avoidance of NSAIDs. Biopsy results are also pending. Antibiotics and octreotide have been discontinued. Colonoscopy on 06/29/2025 revealed hemorrhoids, diverticulosis and 3 polyps and were resected, pending path report. #Infrarenal abdominal aortic aneurysm, 3.3 cm #Peripheral arterial disease #S/p Iliac Stent #Narrowing of left common iliac artery. Patient has aortoiliac stent, CT chest abdomen pelvis shows severe narrowing left common iliac, patient does have a aortic iliac stent. Bilateral pedal pulses palpated, no evidence of limb ischemia, left foot amputation noted. MONICO (05/01/2025): Right ankle/Brachial index 1.1 and Left ankle/Brachial index 1.1 - Start on clopidogrel 75mg and aspirin 81mg daily - Outpatient follow-up #Chronic smoking history, 30 pack years #Acute GI bleed, likely upper #Melena #Cirrhosis, on imaging, ?Decompensated cirrhosis #Transaminitis #Benign prostate hypertrophy #Hyperchloremic normal anion gap acidosis #Elevated BUN #Leukocytosis #Normocytic normochromic anemia #Hepatitis C Management as per Hospitalist team Thank you for cardiology consultation. We appreciate the opportunity to participate in this patient care. We will continue to follow-up on this patient. The patient's management plan was discussed with my attending physician MD Vasu Sotelo MD, PGY3 Attending Provider Attestation/Addendum I have personally seen and examined the patient separately on the above date of service and discussed the plan of care with the resident. I reviewed the resident Dr. Vasu Whitlock consultation progress note and agree with the resident findings and plan in the note above and have also edited the documentation to reflect my findings and plan. Ernie Mcclelland M.D. Interventional Cardiology
--- NOTE | 2025-06-30 18:57 | ESPR_ITS ---
Documentation for date of: 06/30/25 Subjective Subjective Interval history: Hemoglobin hematocrit 8.5 and 26.5 Exam Vital Signs Temp Pulse Resp BP Pulse Ox O2 Del Method O2 Flow Rate 97.2 F 102 H 17 110/67 95 Room Air 3 06/30/25 17:00 06/30/25 17:00 06/30/25 17:00 06/30/25 17:00 06/30/25 17:00 06/30/25 17:00 06/29/25 21:15 Routine Respiratory Exam Comments: Normal to auscultation Routine Abdominal Exam Comments: Soft nontender Objective Labs 06/30/25 04:01 06/30/25 13:33 Labs: Laboratory Results - last 24 hr 06/30/25 06/30/25 06/30/25 04:01 04:01 04:01 WBC 7.6 RBC 2.88 L Hgb 8.5 L Hct 26.5 L MCV 92 MCH 29.5 MCHC 32.1 RDW Std Deviation 53.7 H Plt Count 143 Neut % (Auto) 72 Lymph % (Auto) 14 [place] % (Auto) 9 Eos % (Auto) 4 Baso % (Auto) 1 Neut # (Auto) 5.5 Lymph # (Auto) 1.1 [place] # (Auto) 0.7 Eos # (Auto) 0.3 Baso # (Auto) 0.0 Immature Gran # (Auto) 0.08 H Absolute Nucleated RBC 0.00 Immature Gran % 1 H Nucleated RBC % 0 Sodium 143 Potassium 4.0 Chloride 107 Carbon Dioxide 27.1 Anion Gap 9 BUN 7 L Creatinine 0.9 Estim Creat Clear Calc 102.7 eGFR > 60 BUN/Creatinine Ratio 8 L Glucose 94 Calculated Osmolality 282 Calcium 8.1 L Corrected Calcium 8.9 Phosphorus 4.1 4.1 Magnesium 1.8 1.8 Total Bilirubin 0.9 AST 70 H ALT 59 H Alkaline Phosphatase 92 Total Protein 5.2 L Albumin 3.0 L Globulin 2.2 L Albumin/Globulin Ratio 1.4 06/30/25 13:33 WBC RBC Hgb Hct MCV MCH MCHC RDW Std Deviation Plt Count Neut % (Auto) Lymph % (Auto) [place] % (Auto) Eos % (Auto) Baso % (Auto) Neut # (Auto) Lymph # (Auto) [place] # (Auto) Eos # (Auto) Baso # (Auto) Immature Gran # (Auto) Absolute Nucleated RBC Immature Gran % Nucleated RBC % Sodium 141 Potassium 4.2 Chloride 109 H Carbon Dioxide 27.0 Anion Gap 5 L BUN 8 L Creatinine 1.0 Estim Creat Clear Calc 92.6 eGFR > 60 BUN/Creatinine Ratio 8 L Glucose 104 Calculated Osmolality 279 Calcium 8.2 L Corrected Calcium 8.8 Phosphorus 3.5 Magnesium 2.4 Total Bilirubin 0.7 AST 78 H ALT 63 H Alkaline Phosphatase 100 Total Protein 5.4 L Albumin 3.2 L Globulin 2.2 L Albumin/Globulin Ratio 1.5 Impressions Impression: Internal hemorrhoids multiple colonic polyps endoscopically resected gastritis Continue current management Assessment & Plan A&P Narrative # Melena # Posthemorrhagic anemia Plan Agree with the blood transfusion Let the patient settle down Consent obtained for fiberoptic esophagogastroduodenoscopy with possible biopsy possible therapeutic intervention under intravenous moderate sedation scheduled for tomorrow IV Protonix N.p.o. midnight tonight except p.o. meds Other medical problems include Systolic and diastolic congestive heart failure ejection fraction somewhere close to 20% Moderate aortic stenosis BPH Hepatitis C Abdominal aortic aneurysm Thank you very much for the opportunity to participate in the care of this patient Time Spent With Patient Time: Total time spent is greater than 50% in coordination of care (as documented) at patient's floor/unit and/or counseling patient:
[2025-06-30] MEDS: AMIODARONE 150 MG IVPB 150 MG/100 ML BAG 600 MG IV (19:46)
[2025-06-30] MEDS: AMIODARONE 360 MG IVPB 360 MG/200 ML BAG 33.333 MG IV (20:06)
[2025-06-30] MEDS: ATORVASTATIN CALCIUM 20 MG TABLET 80 MG PO (20:11)
[2025-07-01] VITALS (14 sets, daily range): BP systolic 90–120; BP diastolic 54–73; PULSE 72–98; RESP 13–17; TEMP 36–36.7; O2SAT 95–98; BMI 30.7
--- NOTE | 2025-07-01 00:49 | PC.NURSE ---
Contacted hospitalist , Dr. Boyce regarding patient's blood pressure. Patient is on a amiodarone drip and wanted to make the MD aware regarding patient's soft blood pressure of 92/60 (map- 60). Per MD. monitor patient and continue the amiodarone drip. Patient is showing no signs of distress and is asymptamatic.
[2025-07-01] MEDS: AMIODARONE 360 MG IVPB 360 MG/200 ML BAG 16.667 MG IV ×2 (02:21→14:43)
[2025-07-01] MEDS: ONDANSETRON INJ 2 MG/ML INJ 2 ML 4 MG IVP (05:45)
[2025-07-01 06:23] LABS: Basophils # (Auto) 0.0 Thou/mm3 (0.0-0.2); Basophils % (Auto) 0 % (0-2.5); Eosinophils # (Auto) 0.3 Thou/mm3 (0.0-0.5); Eosinophils % (Auto) 3 % (0-10); Hematocrit 26.9 % (41.0-53.0); Immature Granulocytes Auto 0.05 Thou/mm3 (0.00-0.00); Lymphocytes # (Auto) 1.1 Thou/mm3 (1.0-4.8); Lymphocytes % (Auto) 13 % (10-50); Mean Corpuscular HGB Conc 32.3 g/dl (31.0-37.0); Mean Corpuscular Hemoglobin 30.1 pg (25.0-35.0); Mean Corpuscular Volume 93 fL (80-100); Monocytes # (Auto) 0.8 Thou/mm3 (0.0-0.8); Monocytes % (Auto) 9 % (0-12); Neutrophils # (Auto) 6.8 Thou/mm3 (1.8-7.7); Neutrophils % (Auto) 75 % (37-80); Nucleated Red Blood Cell # 0.00 Thou/mm3 (0.00-0.00); Nucleated Red Blood Cell % 0 /100 WBC (0); Platelet Count 158 Thou/mm3 (140-440); RDW Standard Deviation 55.4 fL (35.1-43.9); Red Blood Count 2.89 Miln/mm3 (4.50-5.90); White Blood Count 9.0 Thou/mm3 (3.8-10.6)
[2025-07-01 06:34] LABS: Hemoglobin 8.7 g/dL (13.5-16.0)
[2025-07-01 07:13] LABS: Alanine Aminotransferase 62 U/L (10-49); Albumin, Serum 3.1 gm/dL (3.4-4.8); Albumin/Globulin Ratio 1.3 (1.2-2.2); Alkaline Phosphatase 108 U/L (46-116); Anion Gap 10 (7-16); Aspartate Amino Transferase 66 U/L (0-34); BUN/Creatinine Ratio 12 Ratio (12-20); Bilirubin,Total 0.7 mg/dL (0.3-1.2); Blood Urea Nitrogen 12 mg/dL (9-23); Calcium 8.2 mg/dL (8.3-10.6); Calcium (Corrected) 8.9 mg/dL (8.5-10.1); Carbon Dioxide 26.8 mMol/L (20.0-31.0); Chloride 105 mMol/L (98-107); Creatinine (Component) 1.0 mg/dL (0.6-1.3); Estimated Creatinine Clearance 93.6 mL/min (>60); Globulin 2.3 gm/dL (2.3-3.5); Glucose 109 mg/dL (74-106); Magnesium 2.5 mg/dL (1.6-2.6); Osmolality,Calculated 283 (275-295); Phosphorous 4.3 mg/dL (2.4-5.1); Potassium 4.6 mMol/L (3.4-5.1); Sodium 142 mMol/L (136-145); Total Protein 5.4 gm/dL (5.7-8.2); eGFR > 60 See Note
[2025-07-01] MEDS: SUCRALFATE SUSP 1 GM/10 ML UDC PO ×2 (09:18→20:28)
[2025-07-01] MEDS: METOPROLOL SUCCINATE XL 25 MG TABCR 50 MG PO (09:19)
[2025-07-01] MEDS: PANTOPRAZOLE 40 MG TABLET PO ×2 (09:20→20:29)
[2025-07-01] MEDS: ASPIRIN EC 81 MG TABEC PO (09:20)
[2025-07-01] MEDS: POLYETHYLENE GLYCOL 17 GM PACKET PO (09:20)
[2025-07-01] MEDS: CLOPIDOGREL BISULFATE 75 MG TABLET PO (09:20)
[2025-07-01] MEDS: TAMSULOSIN HCL 0.4 MG CAPSULE PO (09:20)
--- NOTE | 2025-07-01 17:51 | ESPR_ITS ---
<Statement entered by Bubba Saldana MD - 07/02/25 13:51> I have reviewed the note and agree with the resident's assessment & plan with exceptions as below. I have personally reviewed labs, imaging, home meds/prior records, examined the patient, formulated and discussed management plan with the IM team. Patient examined at bedside today. No acute overnight events. Patient is agreeable to go to SNF upon discharge. Hemoglobin today stable at 8.4. Patient will likely need iron and further workup for GI bleed once discharged as patient's hemoglobin was 14 a couple of months ago. Patient had a colonoscopy in which she will need to follow-up with GI for for the biopsy results. Patient is finishing last bag of Amio, will transition to oral Amio 200 mg twice daily tomorrow. Cardiology on consult, appreciate recommendations. Continuing DAPT therapy for stent and iliac artery. Repeat hematology and chemistry in AM. Bubba Saldana, PGY-2 Internal Medicine Documentation for date of: 07/01/25 Subjective Subjective Interval history: Pt examined at bedside today. No acute overnight events. This morning, patient states he is feeling a little bit nauseous, denies vomiting. Patient states he has been making stool without blood. Also endorses a little bit of dizziness during straining as he is constipated, denies fainting. Patient denies fever, chest pain, palpitations, dyspnea, abdominal pain, dysuria. Patient is on amiodarone drip, will be finish tomorrow morning. Exam Vital Signs Temp Pulse Resp BP Pulse Ox O2 Del Method O2 Flow Rate 97.4 F 84 16 120/71 95 Room Air 3 07/01/25 17:07/01/25 17:07/01/25 17:07/01/25 17:07/01/25 17:07/01/25 17:06/29/25 21:15 Narrative Exam General: No acute distress, Alert and Oriented x 3 HEENT: Moist mucous membranes, oropharynx clear Neck: Supple, No masses, No JVD CVS: S1S2, ireegularly irregular, rate controlled, No murmurs, rubs or gallops Lungs: Clear to auscultation with no accessory use, no wheeze no rhonchi Abd: Soft, NT/ND, +BS, no organomegaly Ext: No edema, warm and well perfused Skin: No rash Psych: normal mood and affect Objective Labs 07/01/25 05:07 07/01/25 05:07 Labs: Laboratory Results - last 24 hr 07/01/25 05:07 WBC 9.0 RBC 2.89 L Hgb 8.7 L Hct 26.9 L MCV 93 MCH 30.1 MCHC 32.3 RDW Std Deviation 55.4 H Plt Count 158 Neut % (Auto) 75 Lymph % (Auto) 13 [place] % (Auto) 9 Eos % (Auto) 3 Baso % (Auto) 0 Neut # (Auto) 6.8 Lymph # (Auto) 1.1 [place] # (Auto) 0.8 Eos # (Auto) 0.3 Baso # (Auto) 0.0 Immature Gran # (Auto) 0.05 H Absolute Nucleated RBC 0.00 Immature Gran % 1 H Nucleated RBC % 0 Sodium 142 Potassium 4.6 Chloride 105 Carbon Dioxide 26.8 Anion Gap 10 BUN 12 Creatinine 1.0 Estim Creat Clear Calc 93.6 eGFR > 60 BUN/Creatinine Ratio 12 Glucose 109 H Calculated Osmolality 283 Calcium 8.2 L Corrected Calcium 8.9 Phosphorus 4.3 Magnesium 2.5 Total Bilirubin 0.7 AST 66 H ALT 62 H Alkaline Phosphatase 108 Total Protein 5.4 L Albumin 3.1 L Globulin 2.3 Albumin/Globulin Ratio 1.3 Quality Measures Quality Measures VTE prophylaxis (SCD's (admitted for GI bleed)) Assessment & Plan Assessment Current Active Medications: Generic Name Dose Route Start Last Admin Trade Name Freq PRN Reason Stop Dose Admin Acetaminophen 325 mg 06/24/25 12:54 Acetaminophen 325 Mg Tablet PO 07/24/25 12:53 Q6H PRN Pain (1-3) & Fever >100.4 Amiodarone HCl 200 mg 07/02/25 09:00 Amiodarone Hcl 200 Mg Tablet PO 08/01/25 08:59 BID CHYNA Aspirin 81 mg 06/30/25 09:00 07/01/25 09:20 Aspirin Ec 81 Mg Tabec PO 07/30/25 08:59 81 mg QDAY CHYNA Administration Atorvastatin Calcium 80 mg 06/26/25 21:00 06/30/25 20:11 Atorvastatin Calcium 20 Mg Tablet PO 07/26/25 20:59 80 mg HS CHYNA Administration Clopidogrel Bisulfate 75 mg 06/28/25 13:45 07/01/25 09:20 Clopidogrel Bisulfate 75 Mg Tablet PO 07/28/25 13:44 75 mg QDAY CHYNA Administration Amiodarone HCl/Dextrose 360 mg in 200 mls @ 16.667 mls/hr 07/01/25 01:43 07/01/25 14:43 Nexterone Ivpb IV 07/02/25 01:42 16.667 mls/hr .Q12H CHYNA Administration Metoprolol Succinate 50 mg 07/01/25 09:00 07/01/25 09:19 Metoprolol Succinate Xl 25 Mg Tabcr PO 07/31/25 08:59 50 mg QDAY CHYNA Administration Ondansetron HCl 4 mg 06/24/25 12:56 07/01/25 05:45 Ondansetron Inj 2 Mg/Ml Inj 2 Ml IVP 07/24/25 12:55 4 mg Q6H PRN Administration NAUSEA OR VOMITING Protocol Pantoprazole Sodium 40 mg 06/28/25 21:00 07/01/25 09:20 Pantoprazole 40 Mg Tablet PO 07/28/25 20:59 40 mg BID CHYNA Administration Protocol Polyethylene Glycol 17 gm 06/26/25 15:00 07/01/25 09:20 Polyethylene Glycol 17 Gm Packet PO 07/26/25 14:59 17 gm QDAY CHYNA Administration Sucralfate 1 gm 06/27/25 21:00 07/01/25 14:17 Sucralfate Susp 1 Gm/10 Ml Udc PO 07/27/25 20:59 Not Given ACHS CHYNA Tamsulosin HCl 0.4 mg 06/26/25 14:45 07/01/25 09:20 Tamsulosin Hcl 0.4 Mg Capsule PO 07/26/25 14:44 0.4 mg QDAY CHYNA Administration Plan Assessment Wodo King is a 65M with MHx of HFrEF, EF 20 to 25% 03/2025, hepatitis C infection, infrarenal AAA, PAD s/p iliac stent, HLD, BPH who presented to the ED ([id number]) with a chief complaint of dark stools. ICU team consulted in setting of shock and marked tachycardia likely 2/2 active GI bleed. In ICU, BP was kept >65mmHg with Levophed 0.05. Patient stable, downgraded to telemetry 06/25/2025. #Acute GI bleed, likely upper #Melena #Normocytic normochromic anemia (2/2 GI Bleed) #Weakness Patient denies currently having blood in stool that is lightening from original black otherwise. Hgb 8.7 today (8.5 previous day) and stable. [place] bleeding score: 11 (previously 17) points, high risk GI bleed Gastric mucosa biopsy (06/24/2025) negative for Helicobacter pylori Transverse colon polyp endoscopic resection (06/24/2025) came back as tubular adenoma EGD ([id number]): Esophagitis, Gastritis, and duodenal ulcer in context of erythematous duodenopathy. Colonoscopy ([id number]): Perianal hemorrhoids. Non-bleeding diverticuli in descending colon and sgmoid. Polypectomies along the transverse (1+3) and descending (1) colon. Plan: - GI consulted, Appreciate recommendations - Colonoscopy today - SBP prophylaxis: Ceftriaxone daily - Continue Protonix IV 40mg bid - Trend CBC #Non-sustained V-tachycardia The patient had one episode of NSVT this afternoon, and his Mg this morning was 1.8, was initially repleted with MgSO4 2 g. Likely 2/2 electrolyte depletion in the setting of golytely use for 3 days resulting in diarrhea in the setting of severe HFrEF. Plan: -Cardiology consulted, recommendations as follows, -Recommend to increase Metoprolol XL to 50mg daily. -Repleted further with MgSO4 4g IV. -Telemetry monitoring. -Recommended to maintain Mg and K greater than 2 and 4 at all the time. -Started on amiodarone drip as the patient is high risk for arrhythmia as LVEF is 20-25%, and as he has NSVT for about 15-20 sec, he was started on amiodarone drip. -Plan to start amiodarone PO 200 mg BID 07/02/2025 #HFrEF, EF 20-25% #Combined systolic and diastolic heart failure #Mild to moderate AV stenosis #h/o V-tach Patient on GDMT at home: metoprolol succinate XR 25mg, losartan 25mg, spirinolactone 25mg, and dapagliflozin 10mg Qday Echo (): Dialated cardiomyopathy. Dilated LV. Severe systolic dysfunction. Severe global hypokinesis. Estimated EF 20-30% %. Grade 2 diastolic dysfunction. Mild RV systolic dysufnction. Plan: - Strict intake and output - Keep on fluid restriction 1500 cc - Daily weight - On GDMT outpatient, follows up with livestock buyer Dr. Ernie Mcclelland - resume entresto 1 tab daily when BP is more stable and later add spironolactone 0.5 tab of 25mg daily, per cardiology. - Cardiology consulted, recommends ICD placement, and resuming GDMT as tolerated. - Increased Metoprolol to 50 XL - Keep Mg >2 and K >4 as a protective measure against degrading arrhythmias. #Infrarenal abdominal aortic aneurysm, 3.3 cm #Peripheral arterial disease #AortoIliac Stent b/l #Narrowing of left common iliac artery. (findings of CT chest and abdomen) Patient on Aspirin 81mg and atorvastatin 80mg Qday. ASA had been held in the setting of a duodenal ulcer prone to bleeding, resumed post-colonoscopy 06/30. Patient needs to be on DAPT due to recent iliac stent Plan: -Hold Plavix 75 mg qday for three days post-colonoscopy. Resume on 07/03. -Aspirin PO 81mg Qday. #Active hep C infection #Transaminitis in May 2025 hepatitis panel shows positive hep C antibody, HCV viral load of 2.5 million. 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 Improved AST 84, and ALT 69 (06/23) - Follow-up with infectious disease outpatient #Hyperlipidemia TG 67, Ch 127, LDL 81, HDL 33 (05/01/2025) Resumed patient on atorvastatin 80 mg at bedtime. #Benign prostate hypertrophy Resumed patient on Flomax 0.4mg. # Chronic smoking history, 30 pack years Not an active smoker currently, history of 30 pack years, no lung nodules/lymphadenopathy noted on CTA - Outpatient screening as appropriate #Hypovolemic/hemorrhagic shock, resolved #Hyperchloremic normal anion gap acidosis, resolved #UTI, ruled out Pt reports dysuria. UA was positive for turbid urine with 1+ protein, leukocyte esterase, RBC 18, WBC 723, no bacteria. ? MRSA screen: Positive (06/24) nasal cx's ? Blood cultures: negative after 48h ? Urine culture: negative (06/24) Health Maintanance: DVT prophylaxis: SCDs GI prophylaxis: Protonix twice daily BM: Miralax PO 17mg Qday Diet: Cardiac - 2g sodium Lines: Peripheral IV Code status: Full code This case was discussed with my attending physician, Dr. Silva, and senior resident, Dr Shana Whalen MD PGY-1 Attending Provider Attestation/Addendum I, Yuly Silva, DO, attest that I was physically present for the rodriguez portions of the service and evaluated the patient with the resident and I reviewed and discussed the case with the resident and agree with the resident's findings and plans of care as documented above Patient seen and evaluated this AM. No acute events overnight. Patient remains on amiodarone drip which will be completed at 1:30am tomorrow. Will transition to oral amiodarone. He remains on DAPT. Anticipate DC within next 24h to SNF once patient completes amiodarone drip.
--- NOTE | 2025-07-01 18:26 | PD.IMPROG ---
Documentation for date of: 07/01/25 Subjective Subjective Interval history: Patient evaluated hemoglobin hematocrit 8.7 and 26.9 Gastric mucosa biopsy negative for Helicobacter pylori Transverse colon polyp endoscopic resected came back as tubular adenoma Exam Vital Signs Temp Pulse Resp BP Pulse Ox O2 Del Method O2 Flow Rate 97.4 F 84 16 120/71 95 Room Air 3 07/01/25 17:00 07/01/25 17:00 07/01/25 17:00 07/01/25 17:00 07/01/25 17:00 07/01/25 17:00 06/29/25 21:15 Objective Labs 07/01/25 05:07 07/01/25 05:07 Labs: Laboratory Results - last 24 hr 07/01/25 05:07 WBC 9.0 RBC 2.89 L Hgb 8.7 L Hct 26.9 L MCV 93 MCH 30.1 MCHC 32.3 RDW Std Deviation 55.4 H Plt Count 158 Neut % (Auto) 75 Lymph % (Auto) 13 [place] % (Auto) 9 Eos % (Auto) 3 Baso % (Auto) 0 Neut # (Auto) 6.8 Lymph # (Auto) 1.1 [place] # (Auto) 0.8 Eos # (Auto) 0.3 Baso # (Auto) 0.0 Immature Gran # (Auto) 0.05 H Absolute Nucleated RBC 0.00 Immature Gran % 1 H Nucleated RBC % 0 Sodium 142 Potassium 4.6 Chloride 105 Carbon Dioxide 26.8 Anion Gap 10 BUN 12 Creatinine 1.0 Estim Creat Clear Calc 93.6 eGFR > 60 BUN/Creatinine Ratio 12 Glucose 109 H Calculated Osmolality 283 Calcium 8.2 L Corrected Calcium 8.9 Phosphorus 4.3 Magnesium 2.5 Total Bilirubin 0.7 AST 66 H ALT 62 H Alkaline Phosphatase 108 Total Protein 5.4 L Albumin 3.1 L Globulin 2.3 Albumin/Globulin Ratio 1.3 Impressions Impression: Gastritis Helicobacter pylori negative Tubular adenoma transverse colon Continue current management Assessment & Plan A&P Narrative # Melena # Posthemorrhagic anemia Plan Agree with the blood transfusion Let the patient settle down Consent obtained for fiberoptic esophagogastroduodenoscopy with possible biopsy possible therapeutic intervention under intravenous moderate sedation scheduled for tomorrow IV Protonix N.p.o. midnight tonight except p.o. meds Other medical problems include Systolic and diastolic congestive heart failure ejection fraction somewhere close to 20% Moderate aortic stenosis BPH Hepatitis C Abdominal aortic aneurysm Thank you very much for the opportunity to participate in the care of this patient Time Spent With Patient Time: Total time spent is greater than 50% in coordination of care (as documented) at patient's floor/unit and/or counseling patient:
[2025-07-01] MEDS: ATORVASTATIN CALCIUM 20 MG TABLET 80 MG PO (20:29)
--- NOTE | 2025-07-01 21:43 | PD.RESPRO ---
Documentation for date of: 07/01/25 Subjective Subjective Interval history: The patient was seen and examined at the bedside this morning. He reported doing well and wanted to go home. In the aftermath of NST yesterday afternoon, patient has been stable without return of dizziness, lightheadedness ? his symptoms Nausea and dizziness have not returned. Heart has been in sinus rhythm. Yesterday afternoon Patient had 1 NSVT episode and was ordered 4g MgSO4 by primary team. He denied any chest pain, SOB, orthopnea or PND, palpitations. Vitals were fairly stable this morning with soft blood pressure, heart rate in 90s, saturating 98% on room air. Labs were significant for hemoglobin 8.7, with other chemistry panel WNL, except for magnesium 1.8. Patient on Plavix 75 Mg daily, and aspirin as anticoagulation has been cleared by GI, and needs to be in DAPT due to recent iliac stent. Metoprolol succinate 25 Mg daily and titrate up as tolorated. Continue with atorvastatin 80 Mg daily. Started on amiodarone drip as the patient was high risk for arrhythmia as LVEF is 20-25%, and as he had NSVT for about 15-20 sec, he was started on amiodarone drip and will be transition to oral amiodarone 200 mg twice daily which can later be decreased to 200 mg once daily as outpatient in the next few weeks. Patient will benefit from ICD placement as outpatient if does not improve with maximal directed GDMT for at least 3 months. Patient was diagnosed with severe systolic congestive heart failure only last month and has been started on medical therapy for the same. Patient recommended to follow-up with cardiology regularly and explaining the importance of continuing with all the medications. Exam Vital Signs Temp Pulse Resp BP Pulse Ox O2 Del Method O2 Flow Rate 96.9 F 98 16 99/65 97 Room Air 3 07/01/25 21:07/01/25 21:00 07/01/25 21:00 07/01/25 21:07/01/25 21:07/01/25 21:06/29/25 21:15 Narrative Exam General: No acute distress, Alert and Oriented x 3 HEENT: Moist mucous membranes, oropharynx clear Neck: Supple, No masses, No JVD CVS: S1S2 Regular rate and rhythm, No murmurs, rubs or gallops Lungs: Clear to auscultation with no accessory use, no wheeze no rhonchi Abd: Soft, NT/ND, +BS, no organomegaly Ext: No edema, warm and well perfused Skin: No rash Psych: upset about not getting colonoscopy so far Objective Labs 07/01/25 05:07 07/01/25 05:07 Labs: Laboratory Results - last 24 hr 07/01/25 05:07 WBC 9.0 RBC 2.89 L Hgb 8.7 L Hct 26.9 L MCV 93 MCH 30.1 MCHC 32.3 RDW Std Deviation 55.4 H Plt Count 158 Neut % (Auto) 75 Lymph % (Auto) 13 Bibb % (Auto) 9 Eos % (Auto) 3 Baso % (Auto) 0 Neut # (Auto) 6.8 Lymph # (Auto) 1.1 Bibb # (Auto) 0.8 Eos # (Auto) 0.3 Baso # (Auto) 0.0 Immature Gran # (Auto) 0.05 H Absolute Nucleated RBC 0.00 Immature Gran % 1 H Nucleated RBC % 0 Sodium 142 Potassium 4.6 Chloride 105 Carbon Dioxide 26.8 Anion Gap 10 BUN 12 Creatinine 1.0 Estim Creat Clear Calc 93.6 eGFR > 60 BUN/Creatinine Ratio 12 Glucose 109 H Calculated Osmolality 283 Calcium 8.2 L Corrected Calcium 8.9 Phosphorus 4.3 Magnesium 2.5 Total Bilirubin 0.7 AST 66 H ALT 62 H Alkaline Phosphatase 108 Total Protein 5.4 L Albumin 3.1 L Globulin 2.3 Albumin/Globulin Ratio 1.3 Quality Measures Quality Measures VTE prophylaxis (SCD's (admitted for GI bleed)) Assessment & Plan Assessment Current Active Medications: Generic Name Dose Route Start Last Admin Trade Name Ruddyq PRN Reason Stop Dose Admin Acetaminophen 325 mg 06/24/25 12:54 Acetaminophen 325 Mg Tablet PO 07/24/25 12:53 Q6H PRN Pain (1-3) & Fever >100.4 Amiodarone HCl 200 mg 07/02/25 09:00 Amiodarone Hcl 200 Mg Tablet PO 08/01/25 08:59 BID CHYNA Aspirin 81 mg 06/30/25 09:00 07/01/25 09:20 Aspirin Ec 81 Mg Tabec PO 07/30/25 08:59 81 mg QDAY CHYNA Administration Atorvastatin Calcium 80 mg 06/26/25 21:00 07/01/25 20:29 Atorvastatin Calcium 20 Mg Tablet PO 07/26/25 20:59 80 mg HS CHYNA Administration Clopidogrel Bisulfate 75 mg 06/28/25 13:45 07/01/25 09:20 Clopidogrel Bisulfate 75 Mg Tablet PO 07/28/25 13:44 75 mg QDAY CHYNA Administration Amiodarone HCl/Dextrose 360 mg in 200 mls @ 16.667 mls/hr 07/01/25 01:43 07/01/25 14:43 Nexterone Ivpb IV 07/02/25 01:42 16.667 mls/hr .Q12H CHYNA Administration Metoprolol Succinate 50 mg 07/01/25 09:00 07/01/25 09:19 Metoprolol Succinate Xl 25 Mg Tabcr PO 07/31/25 08:59 50 mg QDAY CHYNA Administration Ondansetron HCl 4 mg 06/24/25 12:56 07/01/25 05:45 Ondansetron Inj 2 Mg/Ml Inj 2 Ml IVP 07/24/25 12:55 4 mg Q6H PRN Administration NAUSEA OR VOMITING Protocol Pantoprazole Sodium 40 mg 06/28/25 21:00 07/01/25 20:29 Pantoprazole 40 Mg Tablet PO 07/28/25 20:59 40 mg BID CHYNA Administration Protocol Polyethylene Glycol 17 gm 06/26/25 15:00 07/01/25 09:20 Polyethylene Glycol 17 Gm Packet PO 07/26/25 14:59 17 gm QDAY CHYNA Administration Sucralfate 1 gm 06/27/25 21:00 07/01/25 20:28 Sucralfate Susp 1 Gm/10 Ml Udc PO 07/27/25 20:59 1 gm ACHS CHYNA Administration Tamsulosin HCl 0.4 mg 06/26/25 14:45 07/01/25 09:20 Tamsulosin Hcl 0.4 Mg Capsule PO 07/26/25 14:44 0.4 mg QDAY CHYNA Administration Plan Mr. King is a 65-year-old male with past medical history of heart failure with reduced ejection fraction, EF 20 to 25% 03/2025, combined systolic and diastolic heart failure, low-flow moderate AV stenosis, hypertension, hyperlipidemia, infrarenal abdominal aortic aneurysm, peripheral arterial disease status post iliac stent, hyperlipidemia, former cocaine use, chronic smoker (30 pack years), benign prostate hypertrophy, Cirrhosis and Hepatitis C infection who presented to [facility] emergency department on June 24, 2025 with a chief complaint of dark stools. Cardiology consulted in the setting of heart failure with reduced ejection fraction, EF 20 to 25% noted in March. #NSVT The patient had one episode of NSVT in the afternoon of 06/30/2025. Likely 2/2 electrolyte depletion in the setting of golytely use for 3 days resulting in diarrhea in the setting of severe HFrEF. -Recommend to increase Metoprolol XL to 50mg daily. -Replete Mg as necessary to keep magnesium above 2 -Telemetry monitoring. -Recommended to maintain Mg and K greater than 2 and 4 at all the time. -Started on amiodarone drip as the patient is high risk for arrhythmia as LVEF is 20-25%, and as he had NSVT for about 15-20 sec, he was started on amiodarone drip and will be transition to oral amiodarone 200 mg twice daily which can be later be decreased to 200 mg once daily as outpatient in the next few weeks. -Patient will benefit from ICD placement as outpatient if does not improve with maximal directed GDMT for at least 3 months. Patient was diagnosed with severe systolic congestive heart failure only last month and has been started on medical therapy for the same. Patient recommended to follow-up with cardiology regularly and explaining the importance of continuing with all the medications. #Heart failure with reduced ejection fraction, EF 20-25%, March 2025 #Combined systolic and diastolic heart failure #Low Flow Moderate AV stenosis Patient has history of heart failure with reduced ejection fraction, currently seems to be euvolemic not in any acute decompensation. Patient currently stable on room air, minimal peripheral edema noted, does not seem to be in any acute exacerbation. Echocardiogram March 2025 shows Dialated cardiomyopathy. Dilated LV. Severe systolic dysfunction. Severe global hypokinesis. Estimated EF 20-30% %. Grade 2 diastolic dysfunction. Mild RV dilatation. Mild RV systolic dysufnction. Mild to modertae AV stenosis. Low gradient due to low EF. Mean PG 12-14 mm hg but JE aroind 1.1 to 1.2 sq cm which indicates at least moderate stenosis. Mild MAC. Mild MR. Mild TR. Trace AI. Mildly dilated LA volume 40.5 mL/m? EKG 06/24 shows sinus tachycardia, rate 108, inverted T waves noted on V4, V5, V6, QRSd 103 Lipid panel 05/01/2025 shows triglycerides 67, cholesterol 127, LDL 81, HDL 33, A1c 5.4, TSH 1.2 RCRI score: 2 points, patient has history of congestive heart failure and EKG changes suggestive of ischemic disease METs greater than 4, patient is independent outpatient. Plan: - Strict intake and output - Fluid restriction 1500 cc - Daily weight - Increase Metoprolol XL to 50mg daily, resume entresto 1 tab daily when BP is more stable and later add spironolactone 0.5 tab of 25mg daily. - Patient will benefit from ICD placement outpatient if does not improve with GDMT. - Close monitoring outpatient for low flow moderate AV stenosis Acute GI bleed and Anemia: Patient admitted to that time to the ICU due to hypovolemic shock secondary to presumed blood loss. Had melena for last few days on asirin and plavix. EGD also performed on 06/25 which demonstrated esophagitis, gastritis and a duodenal ulcer with no signs of bleeding at the time of procedure. Recommended to continue low-sodium peptic ulcer diet with Protonix 40 mg daily and avoidance of NSAIDs. Biopsy results are also pending. Antibiotics and octreotide have been discontinued. Colonoscopy on 06/29/2025 revealed hemorrhoids, diverticulosis and 3 polyps and were resected, pending path report. #Infrarenal abdominal aortic aneurysm, 3.3 cm #Peripheral arterial disease #S/p Iliac Stent #Narrowing of left common iliac artery. Patient has aortoiliac stent, CT chest abdomen pelvis shows severe narrowing left common iliac, patient does have a aortic iliac stent. Bilateral pedal pulses palpated, no evidence of limb ischemia, left foot amputation noted. MONICO (05/01/2025): Right ankle/Brachial index 1.1 and Left ankle/Brachial index 1.1 - Start on clopidogrel 75mg and aspirin 81mg daily - Outpatient follow-up #Chronic smoking history, 30 pack years #Acute GI bleed, likely upper #Melena #Cirrhosis, on imaging, ?Decompensated cirrhosis #Transaminitis #Benign prostate hypertrophy #Hyperchloremic normal anion gap acidosis #Elevated BUN #Leukocytosis #Normocytic normochromic anemia #Hepatitis C Management as per Hospitalist team Thank you for cardiology consultation. We appreciate the opportunity to participate in this patient care. We will continue to follow-up on this patient. This case was discussed with my attending physician, Dr Mcclelland. Tom Alcocer, DO PGY I Attending Provider Attestation/Addendum I have personally seen and examined the patient separately on the above date of service and discussed the plan of care with the resident. I reviewed the resident Dr. Santos consultation progress note and agree with the resident findings and plan in the note above and have also edited the documentation to reflect my findings and plan. Ernie Mcclelland M.D. Interventional Cardiology
[2025-07-02] VITALS (7 sets, daily range): BP systolic 92–117; BP diastolic 61–73; PULSE 82–100; RESP 18–28; TEMP 35.9–36.1; O2SAT 96–98; BMI 30.7
--- NOTE | 2025-07-02 07:16 | PD.RESPRO ---
Documentation for date of: 07/02/25 Exam Vital Signs Temp Pulse Resp BP Pulse Ox O2 Del Method O2 Flow Rate 96.7 F L 100 18 99/61 98 Room Air 3 07/02/25 04:00 07/02/25 04:00 07/02/25 04:00 07/02/25 04:00 07/02/25 04:00 07/02/25 04:00 06/29/25 21:15 Objective Labs 07/01/25 05:07 07/01/25 05:07 Quality Measures Quality Measures VTE prophylaxis (SCD's (admitted for GI bleed)) Assessment & Plan Assessment Current Active Medications: Generic Name Dose Route Start Last Admin Trade Name Freq PRN Reason Stop Dose Admin Acetaminophen 325 mg 06/24/25 12:54 Acetaminophen 325 Mg Tablet PO 07/24/25 12:53 Q6H PRN Pain (1-3) & Fever >100.4 Amiodarone HCl 200 mg 07/02/25 09:00 Amiodarone Hcl 200 Mg Tablet PO 08/01/25 08:59 BID CHYNA Aspirin 81 mg 06/30/25 09:00 07/01/25 09:20 Aspirin Ec 81 Mg Tabec PO 07/30/25 08:59 81 mg QDAY CHYNA Administration Atorvastatin Calcium 80 mg 06/26/25 21:00 07/01/25 20:29 Atorvastatin Calcium 20 Mg Tablet PO 07/26/25 20:59 80 mg HS CHYNA Administration Clopidogrel Bisulfate 75 mg 06/28/25 13:45 07/01/25 09:20 Clopidogrel Bisulfate 75 Mg Tablet PO 07/28/25 13:44 75 mg QDAY CHYNA Administration Metoprolol Succinate 50 mg 07/01/25 09:00 07/01/25 09:19 Metoprolol Succinate Xl 25 Mg Tabcr PO 07/31/25 08:59 50 mg QDAY CHYNA Administration Ondansetron HCl 4 mg 06/24/25 12:56 07/01/25 05:45 Ondansetron Inj 2 Mg/Ml Inj 2 Ml IVP 07/24/25 12:55 4 mg Q6H PRN Administration NAUSEA OR VOMITING Protocol Pantoprazole Sodium 40 mg 06/28/25 21:00 07/01/25 20:29 Pantoprazole 40 Mg Tablet PO 07/28/25 20:59 40 mg BID CHYNA Administration Protocol Polyethylene Glycol 17 gm 06/26/25 15:00 07/01/25 09:20 Polyethylene Glycol 17 Gm Packet PO 07/26/25 14:59 17 gm QDAY CHYNA Administration Sucralfate 1 gm 06/27/25 21:00 07/01/25 20:28 Sucralfate Susp 1 Gm/10 Ml Udc PO 07/27/25 20:59 1 gm ACHS CHYNA Administration Tamsulosin HCl 0.4 mg 06/26/25 14:45 07/01/25 09:20 Tamsulosin Hcl 0.4 Mg Capsule PO 07/26/25 14:44 0.4 mg QDAY CHYNA Administration
[2025-07-02] MEDS: SUCRALFATE SUSP 1 GM/10 ML UDC PO ×2 (08:08→12:10)
[2025-07-02] MEDS: ASPIRIN EC 81 MG TABEC PO (08:08)
[2025-07-02] MEDS: PANTOPRAZOLE 40 MG TABLET PO (08:08)
[2025-07-02] MEDS: POLYETHYLENE GLYCOL 17 GM PACKET PO (08:08)
[2025-07-02] MEDS: CLOPIDOGREL BISULFATE 75 MG TABLET PO (08:08)
[2025-07-02] MEDS: AMIODARONE HCL 200 MG TABLET PO (08:08)
[2025-07-02] MEDS: METOPROLOL SUCCINATE XL 25 MG TABCR 50 MG PO (08:09)
[2025-07-02] MEDS: TAMSULOSIN HCL 0.4 MG CAPSULE PO (08:09)
--- NOTE | 2025-07-02 10:04 | PC.SS ---
Education Specialist (CLAUDETTE) Anna notified by Dr. Silva that patient was declining to discharge to [facility]. SW met with patient [id number] to discuss discharge plan. SW introduced self, role and reason for visit. Patient appeared irritable. Patient reported that he was not going to SNF. Patient reported that he wanted to discharge home tomorrow, 07/03/2025. SW explained that Dr. Silva was ready to discharge him today as there was no medical reason to remain in the hospital. Patient reported that he wanted to discharge because no family members or friends would go see him; in addition, there would be no transportation services to take him back home. SW explained that his managed [employer] is connected to [facility] and transportation services can be arranged. SW explained to patient that based on his medical insurance, home health might not be an option. Patient reported that he did not care and was still going to return home. Patient explained that his neighbor, Laverne ([phone]) has his keys. Patient provided social worker assistant with verbal consent to contact Laverne to update her. CLAUDETTE attempted to call with no success, phone was going to voice mail. CLAUDETTE updated bedside RN-Alda.
--- NOTE | 2025-07-02 11:41 | ESDS_ITS ---
<Statement entered by Bubba Saldana MD - 07/04/25 19:45> I have reviewed the note and agree with the resident's assessment & plan with exceptions as below. I have personally reviewed labs, imaging, home meds/prior records, examined the patient, formulated and discussed management plan with the IM team. Bubba Saldana, PGY-2 Internal Medicine <Statement entered by Yuly Silva DO - 07/03/25 15:33> I, Yuly Silva DO, attest that I was physically present for the rodriguez portions of the service and evaluated the patient with the resident and I reviewed and discussed the case with the resident and agree with the resident's findings and plans of care as documented above Planned Discharge Date 07/02/25 DS: Providers Provider Date of admission: 06/24/25 12:54 Primary care physician: Julian Dick MD Admitting Provider: Chema Pederson MD Attending Provider on Admission: Glen Bagley MD Consults: 06/24/25 12:57 Consult to Gastroenterology Stat Comment: Consulting Provider: Katya Alanis 06/24/25 15:28 Referral Wound Care Routine Comment: 06/24/25 17:52 Consult to Cardiology Routine Comment: HFrEF Consulting Provider: Ernie Mcclelland 06/24/25 20:04 Health Equity Referral - Knowledge Deficit Routine Comment: Positive screening for knowledge deficit needs. Health Equity Referral - Transportation Routine Comment: Positive screening for transportation needs. 06/26/25 12:29 Referral Physical Therapy Routine Comment: Physician Instructions: Attending Provider on DC: Yuly Silva DO Discharging Provider: Yuly Silva DO DS: Diagnosis Problem List Completed Was Problem List Reviewed/Reconciled?: Yes Hospital Course Hospital Course Hospital course: Mr. King is a 65-year-old male with past medical history of heart failure with reduced ejection fraction, EF 20 to 25% 03/2025, combined systolic and diastolic heart failure, mild to moderate AV stenosis, benign prostate hypertrophy, ?Cirrhosis, hepatitis C infection, infrarenal abdominal aortic aneurysm, peripheral arterial disease status post iliac stent, hyperlipidemia and former cocaine use and chronic smoker with 30 pack years who presented to [facility] emergency department on June 24, 2025 with a chief complaint of dark stools. ICU team consulted in setting of shock and active GI bleed, req uiring pressor support. GI was consulted and had an EGD done to look for source of bleeding. Downgraded to floors after being stable and not needing pressor support. Patient had an episode of non-sustained V-tach treated with amiodarone drip, planned for amiodarone PO outpatient. Patient follows up outpatient with administrative office manager Dr. Ernie Mcclelland, was recently seen outpatient in his office is on appropriate goal-directed medical therapy. Imaging Findings: - CT chest abdomen pelvis shows negative for aortic aneurysm, pulmonary artery emboli. Shows severe scarring of left kidney, infrarenal abdominal aorta dimension 3.3 cm small bulge of lateral margin of infrarenal abdominal aorta, bilateral iliac artery stents with significant narrowing of left common iliac artery. - EGD showed esophagitis in lower third; diffuse moderate inflammation in gastric antrum (biopsied); Superficial duodenal ulcer 10 mm in largest dimension; Diffuse moderately erythematous mucosa w/o active bleeding and with no stigmata of bleeding was found in duodenal bulb. Discharge Instructions * Follow-up with PCP within 1-2 weeks of discharge. * See your wool batting worker, Dr. Alanis, to follow up from the hospital within 1-2 weeks. Address: [address] [place] [address]. Phone: . Call to make an appointment * Follow up with your administrative office manager, Dr. Mcclelland, within one- two weeks upon D/C. Address: [address] [place] [address]. Phone:? . Call to make an appointment. * Recommended repeat CBC within 1 week. * Recommended referral to Infectious Disease Specialist or pattern repair person for untreated hepatitis C. * Continue taking PROTONIX 40 mg once a day for 30 days. * I am prescribing you Amiodarone, take as prescribed as this medicine is used to control your heart rate * I am prescribing you Iron and Vitamin C, take these as prescribed for your anemia * I resumed your Aspirin and Plavix as these are your blood thinners * Continue taking medications as prescribed below. * Return to Emergency Room if symptoms persist, worsen, or new symptoms develop Admission Diagnosis #Hypovolemic/hemorrhagic shock, resolved #Heart failure with reduced ejection fraction, EF 20-25%, March 2025 #Combined systolic and diastolic heart failure #Mild to moderate AV stenosis #Infrarenal abdominal aortic aneurysm, 3.3 cm #Peripheral arterial disease #S/p Iliac Stent #Narrowing of left common iliac artery. #Hyperlipidemia #Chronic smoking history, 30 pack years #Acute GI bleed, likely upper #Melena #Cirrhosis, on imaging, ?Decompensated cirrhosis #Transaminitis #Benign prostate hypertrophy #Hyperchloremic normal anion gap acidosis, resolved #Elevated BUN, hyperosmolality #Leukocytosis #Normocytic normochromic anemia #Active hep C infection Patient plan of care was discussed with the attending physician, Dr. Silva and my senior resident, Dr. Shana Whalen MD PGY-1 Time Spent with Patient Time attestation: Total time spent providing and/or coordinating discharge services: Time spent: Greater than 30 minutes Exam Vital Signs Temp Pulse Resp BP Pulse Ox O2 Del Method O2 Flow Rate 97.0 F 91 28 H 117/73 97 Room Air 3 07/02/25 08:00 07/02/25 08:09 07/02/25 08:00 07/02/25 08:09 07/02/25 08:00 07/02/25 08:00 06/29/25 21:15 Narrative Exam General: No acute distress, Alert and Oriented x 3 HEENT: Moist mucous membranes, oropharynx clear Neck: Supple, No masses, No JVD CVS: S1S2 Regular rate and rhythm, No murmurs, rubs or gallops Lungs: Clear to auscultation with no accessory use, no wheeze no rhonchi Abd: Soft, NT/ND, +BS, no organomegaly Ext: No edema, warm and well perfused Skin: No rash Psych: normal mood and affect Discharge Plan Plan Patient Disposition: Home w/HOME HEALTH Patient condition on transfer: Stable Care Plan Goals: * Follow-up with PCP within 1-2 weeks of discharge. * See your wool batting worker, Dr. Alanis, to follow up from the hospital within 1-2 weeks. Address: [address] [place] [address]. Phone: . Call to make an appointment * Follow up with your administrative office manager, Dr. Mcclelland, within one- two weeks upon D/C. Address: [address], [place] [address]. Phone:? . Call to make an appointment. * Recommended repeat CBC within 1 week. * Recommended referral to Infectious Disease Specialist or pattern repair person for untreated hepatitis C. * Continue taking PROTONIX 40 mg once a day for 30 days. * I am prescribing you Amiodarone, take as prescribed as this medicine is used to control your heart rate * I am prescribing you Iron and Vitamin C, take these as prescribed for your anemia * I resumed your Aspirin and Plavix as these are your blood thinners * Continue taking medications as prescribed below. * Return to Emergency Room if symptoms persist, worsen, or new symptoms develop Prescriptions/Referrals Prescriptions/Med Rec: New amiodarone 200 mg tablet 200 mg PO BID 30 Days Qty: 60 0RF Rx Instructions: Take one tablet by mouth twice a day metoprolol succinate 25 mg tablet extended release 24 hr 25 mg PO QDAY 30 Days Qty: 30 0RF Rx Instructions: Take one tablet by mouth every day ascorbic acid (vitamin C) [Vitamin C] 500 mg tablet 500 mg PO Q OTHER DAY 30 Days Qty: 15 0RF Rx Instructions: Take one tablet by mouth every other day ferrous sulfate 325 mg (65 mg iron) tablet 325 mg PO Q OTHER DAY 30 Days Qty: 15 0RF Rx Instructions: Take one tablet by mouth every other day pantoprazole [Protonix] 40 mg tablet,delayed release (DR/EC) 40 mg PO QDAY 30 Days Qty: 30 0RF Rx Instructions: Take one tablet by mouth every day before breakfast aspirin 81 mg tablet 81 mg PO QDAY 30 Days Qty: 30 0RF Rx Instructions: Take one tablet by mouth every day clopidogrel [Plavix] 75 mg tablet 75 mg PO QDAY 30 Days Qty: 30 0RF Rx Instructions: Take one tablet by mouth every day atorvastatin 80 mg tablet 80 mg PO QPM Qty: 7 0RF Continued tamsulosin 0.4 mg capsule 0.4 mg PO DAILY Patient Comments: take 1 capsule by mouth once daily multivitamin with folic acid [Tab-A-Amara] 400 mcg Tablet 1 tab PO QDAY Qty: 0 0RF zinc sulfate 50 mg zinc (220 mg) Capsule 220 mg PO QDAY Qty: 0 0RF Discontinued metoprolol succinate [Toprol XL] 25 mg tablet extended release 24 hr 25 mg PO QDAY Qty: 30 0RF Referrals: Ernie Mcclelland MD [Physician] - Julian Dick MD [Primary Care Provider] - Katya Alanis MD [Physician] - Outpatient Orders (i.e. Home Health, Labs, Imaging): CBC (Routine) Location: None Selected Ordered By: Jamel Guevara Patient/Caregiver Discharge Instructions Discharge Activity: as per physical therapy and activity as tolerated Education Materials: Bleeding Gastrointestinal, Anatomy of the Digestive System, Heart Failure Print Language: Luxembourgish Stand Alone Forms: Nidia Award Info., Patient Portal Info Letter Discharge Order Discharge Orders: Discharge (Routine); Ordered 07/02/25 Ordered By: Bubba Saldana Quality Discharge Quality Measures VTE prophylaxis
[2025-07-02] MEDS: IRON SUCROSE CPLX INJ 20 MG/ML VIAL 5 ML 200 MG IVP (12:09)
--- NOTE | 2025-07-03 18:38 | PC.CM ---
Patient accepted by [facility]. Pending Start of care date.
--- NOTE | 2025-07-04 14:54 | PC.CC ---
ELLE SOC 07/05
== END 2025-07-02 13:37 | disposition home health service (06) | DRG 241 ==
LOC: SERX 13:09 → SERHOLD 13:28 → S2SX 19:43 → S2NX 06-25 16:34
PROVIDERS: Specialist; Admitting Provider Internal Medicine Critical Care Medicine; Emergency Provider Emergency Medicine; PCP Family Medicine; Visit Provider Internal Medicine
PROC: (CPT 43239; principal; 2025-06-25 15:30)
PROC: 0DJD8ZZ Inspection of Lower Intestinal Tract, Via Natural or Artificial Opening Endoscopic (ICD-10-PCS; CPT 45378; principal; 2025-06-29 12:30)
DX: K26.4 Chronic or unspecified duodenal ulcer with hemorrhage (principal); I35.0 Nonrheumatic aortic (valve) stenosis; I50.42 Chronic combined systolic (congestive) and diastolic (congestive) heart failure; N40.0 Benign prostatic hyperplasia without lower urinary tract symptoms; I71.43 Infrarenal abdominal aortic aneurysm, without rupture; I73.9 Peripheral vascular disease, unspecified; B19.20 Unspecified viral hepatitis C without hepatic coma; E78.00 Pure hypercholesterolemia, unspecified; E86.1 Hypovolemia; E87.20 Acidosis, unspecified; E87.8 Other disorders of electrolyte and fluid balance, not elsewhere classified; K74.60 Unspecified cirrhosis of liver; R57.1 Hypovolemic shock; K20.91 Esophagitis, unspecified with bleeding; K29.71 Gastritis, unspecified, with bleeding; D50.0 Iron deficiency anemia secondary to blood loss (chronic); F17.200 Nicotine dependence, unspecified, uncomplicated; I11.0 Hypertensive heart disease with heart failure; I25.10 Atherosclerotic heart disease of native coronary artery without angina pectoris; E83.42 Hypomagnesemia; F19.90 Other psychoactive substance use, unspecified, uncomplicated; I42.9 Cardiomyopathy, unspecified; I47.20 Ventricular tachycardia, unspecified; I49.3 Ventricular premature depolarization; N39.0 Urinary tract infection, site not specified; K29.70 Gastritis, unspecified, without bleeding; K29.80 Duodenitis without bleeding; K31.89 Other diseases of stomach and duodenum; K57.30 Diverticulosis of large intestine without perforation or abscess without bleeding; K64.8 Other hemorrhoids; K76.0 Fatty (change of) liver, not elsewhere classified; K63.5 Polyp of colon; K80.20 Calculus of gallbladder without cholecystitis without obstruction; K59.00 Constipation, unspecified; I24.9 Acute ischemic heart disease, unspecified; R18.8 Other ascites; R57.8 Other shock; Z79.02 Long term (current) use of antithrombotics/antiplatelets; Z79.82 Long term (current) use of aspirin; Z79.899 Other long term (current) drug therapy; Z98.62 Peripheral vascular angioplasty status
CPT/HCPCS: 36415; 36430; 71275; 74174; 80053; 80307; 81001; 83605; 83690; 83735; 83880; 84100; 84145; 84484; 85014; 85018; 85025; 85610; 86850; 86900; 86901; 86923; 87040; 87081; 87086; 93005; 96365; 96366; 96375; 96376; 97161; 99284; A4649; J0283; J0696; J1200; J1611; J1756; J2250; J2354; J2405; J2470; J3010; J3475; J3490; J7050; P9016; Q9967; A9270

== ENCOUNTER 2025-07-24 11:00 | Emergency (ER) | payer MEDICAID, SELFPAY ==
[2025-07-24] VITALS (7 sets, daily range): BP systolic 96–128; BP diastolic 55–85; PULSE 80–90; RESP 16–20; TEMP 36.5–37.1; O2SAT 94–100; BMI 34.0
--- NOTE | 2025-07-24 11:18 | XR_ITS ---
Examination: AP chest single view Technique one AP portable semiupright chest single view Date and time: July 24, 2025, 1128 hrs. Comparison: May 01, 2025. Indications: Shortness of breath chest pain 2 days ago. Findings: Left base pneumonia with possible left pleural fluid Moderate enlargement cardiac contour with moderate vascular congestion Suspicious for early septal edema at the lung bases Prominent osteopenia Impression: Significant left base pneumonia Mild heart failure
--- NOTE | 2025-07-24 11:18 | EKG_ITS ---
[facility] Test Date: 2025-07-24 Pat Name: CANDY SHIELDS Department: Room: - Gender: Male Tong Hooker: : 1960 Requested By: Jorge Alberto Piña Order Number: [id number] Reading MD: Jorge Alberto Piña Measurements Intervals [place] Rate: 79 P: 12 MD: 154 QRS: -18 QRSD: 112 T: 58 QT: 408 QTc: 468 Interpretive Statements SINUS RHYTHM MODERATE INTRAVENTRICULAR CONDUCTION DELAY [110+ ms QRS DURATION] MINIMAL VOLTAGE CRITERIA FOR LVH, CONSIDER NORMAL VARIANT [MEETS CRITERIA IN ONE OF: R(aVL), S(V1), R(V5), R(V5/V6)+S(V1)] NONSPECIFIC T-WAVE ABNORMALITY Compared to ECG 06/30/2025 13:30:50 No significant changes /store/S0/[id number]/[id number].pdf
--- NOTE | 2025-07-24 11:25 | PD.EDEXREM ---
ED Extremity Problem RME/HPI General Chief complaint: General Adult/Misc Complain Stated complaint: LEG SWELLING Time Seen by Provider: 07/24/25 11:06 Source: patient and EMS Arrival date/time: 07/24/25 11:00 Limitations: no limitations RME / HPI RME / HPI Narrative: Patient is a 65-year-old male who is brought in by EMS for increased lower leg swelling and mild redness in his bilateral legs. He has no unilateral changes. He denies any chest pain. He has baseline shortness of breath with exertion but no significant changes. He has a history of hypertension, hyperlipidemia, and CHF. No diabetes. There are no other acute complaints or concerns. Related Data Home Medications ?Medication ?Instructions ?Recorded ?Confirmed tamsulosin 0.4 mg capsule 0.4 mg PO DAILY 03/15/25 06/24/25 Previous Rx's ?Medication ?Instructions ?Recorded multivitamin with folic acid 400 1 tab PO QDAY #0 tabs 05/10/25 mcg tablet (Tab-A-Amara) zinc sulfate 50 mg zinc (220 mg) 220 mg (4.4 x 50 mg zinc (220 mg)) 05/10/25 capsule PO QDAY #0 caps amiodarone 200 mg tablet 200 mg PO BID 1 month #60 tabs 07/02/25 ascorbic acid (vitamin C) 500 mg 500 mg PO Q OTHER DAY 1 month #15 07/02/25 tablet (Vitamin C) tabs aspirin 81 mg tablet 81 mg PO QDAY 1 month #30 tabs 07/02/25 atorvastatin 80 mg tablet 80 mg PO QPM #7 tabs 07/02/25 clopidogrel 75 mg tablet (Plavix) 75 mg PO QDAY 1 month #30 tabs 07/02/25 ferrous sulfate 325 mg (65 mg 325 mg PO Q OTHER DAY 1 month #15 07/02/25 iron) tablet tabs metoprolol succinate 25 mg 25 mg PO QDAY 1 month #30 tabs 07/02/25 tablet,extended release 24 hr pantoprazole 40 mg tablet,delayed 40 mg PO QDAY 1 month #30 tabs 07/02/25 release (Protonix) sulfamethoxazole 800 1 tab PO Q12H 7 days #14 tabs 07/24/25 mg-trimethoprim 160 mg tablet (Bactrim DS) Allergies Allergy/AdvReac Type Severity Reaction Status Date / Time No Known Allergies Allergy Verified 07/24/25 11:06 Review of Systems Review of Systems Systems Reviewed: All systems reviewed, normal except as documented ED Exam General Limitations: Present no limitations General appearance: Present alert and in no apparent distress Head Head exam: Present atraumatic Eye Eye exam: Present normal appearance, PERRL and EOMI ENT ENT exam: Present normal exam and normal oropharynx Neck Neck exam: Present normal inspection, full ROM and trachea midline Chest Chest inspection: Present normal inspection and symmetric chest wall rise Respiratory Respiratory exam: Present normal lung sounds bilaterally Cardiovascular Cardiovascular exam: Present regular rate, normal rhythm and normal heart sounds Abdominal Exam Abdominal exam: Present soft and normal bowel sounds Extremities Exam Extremities exam: Present normal inspection, full ROM and pedal edema (>+5 bilateral edema ) Back Exam Back exam: Present normal inspection and full ROM Neurological Exam Neurological exam: Present alert and oriented X3 Psychiatric Psychiatric exam: Present normal affect and normal mood Skin Skin exam: Present warm, dry, intact and normal color Course Quality Measures none Orders Category Date Time Status EKG (ED ONLY) *Do not use* NOW Care 07/24/25 11:18 Completed EKG (ED Only) Stat Exams 07/24/25 11:18 Draft XR chest 1V Stat Exams 07/24/25 11:18 Completed BNP [B-Type Natriuretic Peptide] Stat Lab 07/24/25 11:40 Completed CBC Stat Lab 07/24/25 11:40 Completed CMP [Comprehensive Metabolic Panel] Stat Lab 07/24/25 11:40 Completed Mag [Magnesium] Stat Lab 07/24/25 11:40 Completed UA, C/S IF [Urinalysis, C/S if Indicated] Stat Lab 07/24/25 12:16 Completed Urine Culture Stat Lab 07/24/25 12:16 Received Furosemide Inj [Lasix Inj] Med 07/24/25 14:01 Discontinued 80 mg IVP X1 ONE Trimethoprim/Sulfa 160/800 Ds [Bactrim Ds] Med 07/24/25 14:15 Discontinued 1 tab PO X1 ONE Vital Signs Vital signs: Vital Signs Temperature 97.8 F 07/24/25 11:19 Pulse Rate 84 07/24/25 11:19 Respiratory Rate 19 07/24/25 11:19 Blood Pressure 96/55 L 07/24/25 11:19 Pulse Oximetry (%) 96 07/24/25 11:19 Oxygen Delivery Method Room Air 07/24/25 11:19 Extremity Problem MDM Narrative MDM Narrative:: Patient is a 65-year-old male who is brought in by EMS for increased lower leg swelling and mild redness in his bilateral legs. He has no unilateral changes. He denies any chest pain. He has baseline shortness of breath with exertion but no significant changes. He has a history of hypertension, hyperlipidemia, and CHF. No diabetes. There are no other acute complaints or concerns. On exam, patient is nontoxic-appearing in no visible signs of respiratory distress. His vital signs are stable. He has significant bilateral lower leg edema Workup reveals no leukocytosis, he is somewhat template 1 and his MAC is 32.6. His metabolic panel is unremarkable. BNP is 2426. Urinalysis is consistent with UTI as he has numerous leukocytes and few erythrocytes. The patient was not able to verbalize understanding of his congestive heart failure. Patient does not sleep in bed. He is currently using a chair as he states this is more comfortable. He does not endorse increased orthopnea while in bed, he states he simply sleeps better in a chair. This could be contributing to his lower leg edema. We had a very detailed discussion regarding this. Patient states he can afford and obtain a recliner which may benefit him. Patient is given a single dose of Lasix here. We also started him on Bactrim for a UTI. I do believe the patient be discharged in the emergency room. He will continue Bactrim, continue his current therapies, and follow-up with his primary doctor. He is also encouraged to follow-up with his director product safety. He is invited return at anytime for any worsening or emergent changes. Patient data External records reviewed:: EMS form Clinical information provided by:: patient and EMS Social determinants that could affect healthcare access:: none Patient has the following chronic illnesses:: Hypertension, CHF How is presenting disease/condition affected by chronic disease/condition?: exacerbated by Evaluation data The following diagnostics were reviewed and interpreted by me:: lab results, radiology exam(s) and EKG tracing(s) Lab and/or radiology exams considered but not ordered:: n/a Interpretation Summary: UTI, CHF Medications / Prescriptions Medications or Prescriptions considered but not ordered:: n/a Medication administrations:: Medication Administration History Discontinued Medications Furosemide (Furosemide Inj 10 Mg/Ml 4ml Vial) 80 mg IVP X1 ONE Stop: 07/24/25 14:02 Last Admin: 07/24/25 14:09 Dose: 80 mg Documented By: PILLO Trimethoprim/Sulfamethoxazole (Trimethoprim/Sulfa 160/800 Ds Tablet) 1 tab PO X1 ONE Stop: 07/24/25 14:16 Last Admin: 07/24/25 14:21 Dose: 1 tab Documented By: PILLO See above Consultations Consultation(s) initiated? (list below): No Diagnosis Extremity Problem Differential Diagnosis: cellulitis, deep venous thrombosis of upper extremity and lower extremity edema Most likely diagnosis given after review of the tests above:: CHF, UTI Admission Indicated Admission indicated?: not indicated Admission Request Was there a request for admission?: No Disposition Plan Disposition Plan: Discharge Discharge Attestation Discharge Attestation: The patient and all family members were given an opportunity to ask questions and understood the discharge instructions. Discharge instructions specifically effects, indications for sooner follow up or return to the emergency department, and the expected course of current diagnosis. Patient condition: Stable Discharge Plan Plan Patient Disposition: HOME (Self Care) Patient condition on transfer: Stable Prescriptions/Referrals Prescriptions/Med Rec: New sulfamethoxazole-trimethoprim [Bactrim DS] 800-160 mg tablet 1 tab PO Q12H 7 Days Qty: 14 0RF No Action tamsulosin 0.4 mg capsule 0.4 mg PO DAILY Patient Comments: take 1 capsule by mouth once daily multivitamin with folic acid [Tab-A-Amara] 400 mcg Tablet 1 tab PO QDAY Qty: 0 0RF zinc sulfate 50 mg zinc (220 mg) Capsule 220 mg PO QDAY Qty: 0 0RF amiodarone 200 mg tablet 200 mg PO BID 30 Days Qty: 60 0RF Rx Instructions: Take one tablet by mouth twice a day metoprolol succinate 25 mg tablet extended release 24 hr 25 mg PO QDAY 30 Days Qty: 30 0RF Rx Instructions: Take one tablet by mouth every day ascorbic acid (vitamin C) [Vitamin C] 500 mg tablet 500 mg PO Q OTHER DAY 30 Days Qty: 15 0RF Rx Instructions: Take one tablet by mouth every other day ferrous sulfate 325 mg (65 mg iron) tablet 325 mg PO Q OTHER DAY 30 Days Qty: 15 0RF Rx Instructions: Take one tablet by mouth every other day pantoprazole [Protonix] 40 mg tablet,delayed release (DR/EC) 40 mg PO QDAY 30 Days Qty: 30 0RF Rx Instructions: Take one tablet by mouth every day before breakfast aspirin 81 mg tablet 81 mg PO QDAY 30 Days Qty: 30 0RF Rx Instructions: Take one tablet by mouth every day clopidogrel [Plavix] 75 mg tablet 75 mg PO QDAY 30 Days Qty: 30 0RF Rx Instructions: Take one tablet by mouth every day atorvastatin 80 mg tablet 80 mg PO QPM Qty: 7 0RF Referrals: No Primary/Family,Physician [Primary Care Provider] - In 1 week Problem List Clinical Impression: UTI (urinary tract infection), CHF (congestive heart failure) Patient/Caregiver Discharge Instructions Education Materials: ED Bladder Infection, Male (Adult), Heart Failure Additional Instructions: - Use the provided antibiotic every 12 hours as prescribed. -It is important that you keep your legs elevated is much as possible. Please consider the use of compression stockings to help with your edema. - Please contact your primary doctor to schedule close follow-up within the next 1 to 2 weeks. - Please also contact your director product safety today to schedule follow-up appointment. - Please return to the emergency room at anytime for any worsening or emergent changes. Print Language: Upper Sorbian Stand Alone Forms: Nidia Award Info., Patient Portal Info Letter
[2025-07-24 12:18] LABS: Basophils # (Auto) 0.1 Thou/mm3 (0.0-0.2); Basophils % (Auto) 1 % (0-2.5); Eosinophils # (Auto) 0.2 Thou/mm3 (0.0-0.5); Eosinophils % (Auto) 3 % (0-10); Hematocrit 32.6 % (41.0-53.0); Hemoglobin 10.1 g/dL (13.5-16.0); Immature Granulocytes Auto 0.04 Thou/mm3 (0.00-0.00); Lymphocytes # (Auto) 0.8 Thou/mm3 (1.0-4.8); Lymphocytes % (Auto) 11 % (10-50); Mean Corpuscular HGB Conc 31.0 g/dl (31.0-37.0); Mean Corpuscular Hemoglobin 29.6 pg (25.0-35.0); Mean Corpuscular Volume 96 fL (80-100); Monocytes # (Auto) 0.5 Thou/mm3 (0.0-0.8); Monocytes % (Auto) 8 % (0-12); Neutrophils # (Auto) 5.6 Thou/mm3 (1.8-7.7); Neutrophils % (Auto) 78 % (37-80); Nucleated Red Blood Cell # 0.00 Thou/mm3 (0.00-0.00); Nucleated Red Blood Cell % 0 /100 WBC (0); Platelet Count 142 Thou/mm3 (140-440); RDW Standard Deviation 58.9 fL (35.1-43.9); Red Blood Count 3.41 Miln/mm3 (4.50-5.90); White Blood Count 7.2 Thou/mm3 (3.8-10.6)
[2025-07-24 12:22] LABS: Alanine Aminotransferase 28 U/L (10-49); Albumin, Serum 3.5 gm/dL (3.4-4.8); Albumin/Globulin Ratio 1.5 (1.2-2.2); Alkaline Phosphatase 94 U/L (46-116); Anion Gap 10 (7-16); Aspartate Amino Transferase 37 U/L (0-34); BUN/Creatinine Ratio 18 Ratio (12-20); Bilirubin,Total 0.8 mg/dL (0.3-1.2); Blood Urea Nitrogen 18 mg/dL (9-23); Calcium 8.8 mg/dL (8.3-10.6); Calcium (Corrected) 9.2 mg/dL (8.5-10.1); Carbon Dioxide 27.8 mMol/L (20.0-31.0); Chloride 108 mMol/L (98-107); Creatinine (Component) 1.0 mg/dL (0.6-1.3); Estimated Creatinine Clearance 100.0 mL/min (>60); Globulin 2.3 gm/dL (2.3-3.5); Glucose 107 mg/dL (74-106); Magnesium 1.5 mg/dL (1.6-2.6); Osmolality,Calculated 292 (275-295); Potassium 3.3 mMol/L (3.4-5.1); Sodium 146 mMol/L (136-145); Total Protein 5.8 gm/dL (5.7-8.2); eGFR > 60 See Note
[2025-07-24 12:30] LABS: Collection Type, Urine Voided
[2025-07-24 13:07] LABS: B-Type Natriuretic Peptide 2426 pg/mL (0-100)
[2025-07-24 13:12] LABS: Bilirubin,Urine Negative (Negative); Blood,Urine 2+ (Negative); Clarity,Urine Turbid (Clear/Hazy); Color,Urine Yellow (Lt Yel-Yel); Glucose, Urine Negative (Negative); Ketones,Urine Negative (Negative); Leukocyte Esterase,Urine Positive (Negative); Nitrite,Urine Negative (Negative); PH,Urine 5.5 (5.0-7.0); Protein,Urine 1+ (Neg - Trace); RBC,Urine 10 /hpf (0-3); Specific Gravity,Urine 1.025 (1.001-1.035); Squamous Epithelial Cell,Urine 2 /hpf (0-5); Urobilinogen,Urine 2.0 mg/dL (0.0-1.0); WBC,Urine 599 /hpf (0-5)
[2025-07-24 13:15] LABS: Culture Indicated,Urine Yes
[2025-07-24] MEDS: FUROSEMIDE INJ 10 MG/ML 4ML VIAL 80 MG IVP (14:09)
[2025-07-24] MEDS: TRIMETHOPRIM/SULFA 160/800 DS TABLET 1 TAB PO (14:21)
== END 2025-07-24 17:14 | disposition home or self-care (01) ==
PROVIDERS: Physician Assistant Medical; Emergency Provider Emergency Medicine
DX: N39.0 Urinary tract infection, site not specified (principal); I11.0 Hypertensive heart disease with heart failure; I50.9 Heart failure, unspecified; E78.5 Hyperlipidemia, unspecified
CPT/HCPCS: 36415; 71045; 80053; 81001; 83735; 83880; 85025; 87086; 93005; 96374; 99283; J1938; A9270

== ENCOUNTER → 2025-07-27 | Outpatient (CLI) | payer MEDICAID, SELFPAY ==
[2025-07-27 10:42] LABS: Basophils # (Auto) 0.1 Thou/mm3 (0.0-0.2); Basophils % (Auto) 1 % (0-2.5); Eosinophils # (Auto) 0.3 Thou/mm3 (0.0-0.5); Eosinophils % (Auto) 3 % (0-10); Hematocrit 37.7 % (41.0-53.0); Hemoglobin 11.5 g/dL (13.5-16.0); Immature Granulocytes Auto 0.04 Thou/mm3 (0.00-0.00); Lymphocytes # (Auto) 1.1 Thou/mm3 (1.0-4.8); Lymphocytes % (Auto) 13 % (10-50); Mean Corpuscular HGB Conc 30.5 g/dl (31.0-37.0); Mean Corpuscular Hemoglobin 29.6 pg (25.0-35.0); Mean Corpuscular Volume 97 fL (80-100); Monocytes # (Auto) 0.6 Thou/mm3 (0.0-0.8); Monocytes % (Auto) 7 % (0-12); Neutrophils # (Auto) 6.2 Thou/mm3 (1.8-7.7); Neutrophils % (Auto) 76 % (37-80); Nucleated Red Blood Cell # 0.00 Thou/mm3 (0.00-0.00); Nucleated Red Blood Cell % 0 /100 WBC (0); Platelet Count 158 Thou/mm3 (140-440); RDW Standard Deviation 58.5 fL (35.1-43.9); Red Blood Count 3.88 Miln/mm3 (4.50-5.90); White Blood Count 8.2 Thou/mm3 (3.8-10.6)
[2025-07-27 10:55] LABS: Anion Gap 10 (7-16); BUN/Creatinine Ratio 19 Ratio (12-20); Blood Urea Nitrogen 25 mg/dL (9-23); Calcium 9.3 mg/dL (8.3-10.6); Carbon Dioxide 29.1 mMol/L (20.0-31.0); Chloride 106 mMol/L (98-107); Creatinine (Component) 1.3 mg/dL (0.6-1.3); Glucose 120 mg/dL (74-106); Magnesium 1.6 mg/dL (1.6-2.6); Osmolality,Calculated 294 (275-295); Potassium 3.8 mMol/L (3.4-5.1); Sodium 145 mMol/L (136-145); eGFR > 60 See Note
== END | disposition home or self-care (01) ==
LOC: COPL 10:01
PROVIDERS: PCP Family Medicine; Referring Provider Internal Medicine Cardiovascular Disease; Visit Provider Internal Medicine Cardiovascular Disease
DX: I50.22 Chronic systolic (congestive) heart failure (principal)
CPT/HCPCS: 36415; 80048; 83735; 85025

== ENCOUNTER 2025-08-06 07:11 | Inpatient (IN) | payer MEDICAID, SELFPAY ==
[2025-08-06] VITALS (12 sets, daily range): BP systolic 112–129; BP diastolic 72–91; PULSE 81–107; RESP 15–97; TEMP 36.2–36.8; O2SAT 94–98; BMI 35.6
--- NOTE | 2025-08-06 08:01 | EKG_ITS ---
[facility] Test Date: 2025-08-06 Pat Name: CANDY SHIELDS Department: Room: - Gender: Male [employer] Director: : 1960 Requested By: Dennis Sargent Order Number: [id number] Reading MD: Dennis Sargent Measurements Intervals [place] Rate: 90 P: 8 IN: 152 QRS: -21 QRSD: 118 T: 101 QT: 387 QTc: 474 Interpretive Statements SINUS RHYTHM MINIMAL VOLTAGE CRITERIA FOR LVH, CONSIDER NORMAL VARIANT [MEETS CRITERIA IN ONE OF: R(aVL), S(V1), R(V5), R(V5/V6)+S(V1)] POSSIBLE SEPTAL MYOCARDIAL INFARCTION , PROBABLY OLD [30 ms Q WAVE IN V1/V2] Compared to ECG 07/24/2025 11:49:00 Myocardial infarct finding now present Intraventricular conduction delay no longer present T-wave abnormality no longer present /store/S0/[id number]/[id number].pdf
--- NOTE | 2025-08-06 08:04 | XR_ITS ---
Exam: PA chest single view Technique: Upright PA chest single view Date and time: 08/06/2025 0832 hours [facility] SOBtoday Findings: Mild enlargement cardiac contour Mild vascular congestion Mild bibasilar pneumonia No pulmonary edema Impression: Mild bibasilar pneumonia
[2025-08-06 08:44] LABS: Basophils # (Auto) 0.1 Thou/mm3 (0.0-0.2); Basophils % (Auto) 1 % (0-2.5); Eosinophils # (Auto) 0.2 Thou/mm3 (0.0-0.5); Eosinophils % (Auto) 2 % (0-10); Hematocrit 38.8 % (41.0-53.0); Hemoglobin 12.0 g/dL (13.5-16.0); Immature Granulocytes Auto 0.07 Thou/mm3 (0.00-0.00); Lymphocytes # (Auto) 0.8 Thou/mm3 (1.0-4.8); Lymphocytes % (Auto) 10 % (10-50); Mean Corpuscular HGB Conc 30.9 g/dl (31.0-37.0); Mean Corpuscular Hemoglobin 29.6 pg (25.0-35.0); Mean Corpuscular Volume 96 fL (80-100); Monocytes # (Auto) 0.7 Thou/mm3 (0.0-0.8); Monocytes % (Auto) 8 % (0-12); Neutrophils # (Auto) 6.6 Thou/mm3 (1.8-7.7); Neutrophils % (Auto) 79 % (37-80); Nucleated Red Blood Cell # 0.00 Thou/mm3 (0.00-0.00); Nucleated Red Blood Cell % 0 /100 WBC (0); Platelet Count 174 Thou/mm3 (140-440); RDW Standard Deviation 55.0 fL (35.1-43.9); Red Blood Count 4.06 Miln/mm3 (4.50-5.90); White Blood Count 8.4 Thou/mm3 (3.8-10.6)
--- NOTE | 2025-08-06 08:49 | PD.EDSOB ---
ED SOB =RME/HPI General Chief Complaint: Urogenital-Male Stated Complaint: leg swelling Time Seen by Provider: 08/06/25 07:44 Arrival date/time: 08/06/25 07:11 Mode of arrival: wheelchair RME / HPI RME / HPI Narrative: Mr. King is a 65-year-old male with past medical history of heart failure with reduced ejection fraction, EF 20-25% 03/2025, combined systolic and diastolic heart failure, mild to moderate AV stenosis, benign prostate hypertrophy, ?Cirrhosis, hepatitis C infection, infrarenal abdominal aortic aneurysm, peripheral arterial disease status post iliac stent, hyperlipidemia and former cocaine use and chronic smoker with 30 pack years who presented to [facility] emergency department with a chief complaint of bilateral lower extremity edema. Patient reported that he saw his db2 developer earlier this week on Friday who increased his diuretic dose to 2 mg p.o. daily however he continued to have worsening lower extremity edema which has increased all the way up to his scrotum and he has difficulty urination. Patient endorses orthopnea, has significant shortness of breath while talking. Denies PND, syncope and dizziness. MD Complaint: shortness of breath Onset (ago): day(s) Related Data Home Medications ?Medication ?Instructions ?Recorded ?Confirmed tamsulosin 0.4 mg capsule 0.4 mg PO DAILY 03/15/25 08/06/25 acetaminophen 500 mg tablet 500 mg PO BID 08/06/25 08/06/25 amiodarone 200 mg tablet 200 mg PO QDAY 08/06/25 08/06/25 aspirin 81 mg tablet,delayed 81 mg PO QDAY 08/06/25 08/06/25 release bisacodyl 10 mg rectal suppository 10 mg ND QDAY PRN constipation 08/06/25 08/06/25 (Dulcolax (bisacodyl)) bumetanide 1 mg tablet 1 mg PO QDAY 08/06/25 08/06/25 clopidogrel 75 mg tablet 75 mg PO QDAY 08/06/25 08/06/25 ferrous sulfate 325 mg (65 mg 325 mg PO TID 08/06/25 08/06/25 iron) tablet (FeroSul) melatonin 5 mg capsule 5 mg PO HS 08/06/25 08/06/25 metoprolol succinate 25 mg 25 mg PO QDAY 08/06/25 08/06/25 tablet,extended release 24 hr pantoprazole 40 mg tablet,delayed 40 mg PO QDAY 08/06/25 08/06/25 release Previous Rx's ?Medication ?Instructions ?Recorded multivitamin with folic acid 400 1 tab PO QDAY #0 tabs 05/10/25 mcg tablet (Tab-A-Amara) zinc sulfate 50 mg zinc (220 mg) 220 mg (4.4 x 50 mg zinc (220 mg)) 05/10/25 capsule PO QDAY #0 caps atorvastatin 80 mg tablet 80 mg PO QPM #7 tabs 07/02/25 sacubitril 24 mg-valsartan 26 mg 1 tab PO BID 30 days #60 tabs 08/11/25 tablet (Entresto) Allergies Allergy/AdvReac Type Severity Reaction Status Date / Time No Known Allergies Allergy Verified 07/24/25 11:06 Review of Systems Review of Systems Narrative Review of Systems: ROS: -CONSTITUTIONAL: Denies weight loss, fever and chills. Positive for weight gain -HEENT: Denies changes in vision and hearing. -RESPIRATORY: Positive for dyspnea and cough -CV: Denies palpitations and Chest Pain. Positive for bilateral lower extremity edema -GI: Denies abdominal pain, nausea, vomiting,constipation and diarrhea. -: Denies dysuria and urinary frequency. -MSK: Denies myalgia and joint pain. -SKIN: Denies rash and pruritus. -NEUROLOGICAL: Denies headache and syncope. -PSYCHIATRIC: Denies recent changes in mood. Denies anxiety and depression. Past Medical History Past Medical History Comments PMH COMMENT: PMH: Positive for heart failure with reduced ejection fraction, EF 20 to 25% 03/2025, combined systolic and diastolic heart failure, mild to moderate AV stenosis, benign prostate hypertrophy, ?Cirrhosis, hepatitis C infection, infrarenal abdominal aortic aneurysm, peripheral arterial disease status post leg stent, hyperlipidemia and former cocaine use and chronic smoker with 30 pack years 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 Short of breath during conversation, conversational HEENT: Normocephalic, atraumatic, mucous membranes moist. Heart: Regular rate and rhythm, no murmurs. Lungs: Bilateral crackles Abdomen: Soft, nondistended, nontender, positive bowel sounds. ?No guarding or rebound tenderness. Neurologic: Alert and oriented x3, no gross neurological deficit, and patient able to move all 4 extremities. Extremities: 4+ bilateral lower extremity edema up to scrotum, significant scrotal edema, no redness Skin: No rash or ecchymoses. Course Quality Measures none Orders Category Date Time Status Bladder Scan X1 Care 08/06/25 10:19 Active COVID-19 Screening Questionnaire NOW Care 08/06/25 10:49 Active Continuous Pulse Oximetry NOW Care 08/06/25 08:01 Completed Decision to Admit X1 Care 08/06/25 10:49 Completed EKG (ED ONLY) *Do not use* NOW Care 08/06/25 08:02 Completed Beal [Urinary Catheter] QS Care 08/06/25 10:42 Active Insert IV NOW Care 08/06/25 08:01 Active CXRP [XR chest 1V portable] Stat Exams 08/06/25 08:04 Completed EKG (ED Only) Stat Exams 08/06/25 08:01 Draft Ammonia Stat Lab 08/06/25 08:23 Completed BNP [B-Type Natriuretic Peptide] Stat Lab 08/06/25 08:23 Completed CBC Stat Lab 08/06/25 08:23 Completed CMP [Comprehensive Metabolic Panel] Stat Lab 08/06/25 08:23 Completed Drug Screen,Urine Stat Lab 08/06/25 10:50 Completed INR [Prothrombin Time with INR] Stat Lab 08/06/25 08:23 Completed Lipid Panel Stat Lab 08/06/25 08:23 Completed Magnesium Stat Lab 08/06/25 08:23 Completed PTT [Partial Thromboplastin Time] Stat Lab 08/06/25 08:23 Completed Troponin I Stat Lab 08/06/25 08:23 Completed Urinalysis Stat Lab 08/06/25 10:50 Completed Amiodarone [Cordarone] Med 08/06/25 11:00 Discontinued 200 mg PO BID Bumetanide Inj [Bumex Inj] Med 08/06/25 09:16 Discontinued 2 mg IVP X1 ONE Vital Signs Vital signs: Vital Signs Temperature 98.3 F 08/06/25 08:05 Pulse Rate 94 08/06/25 08:05 Respiratory Rate 19 08/06/25 08:05 Blood Pressure 129/87 H 08/06/25 08:05 Pulse Oximetry (%) 96 08/06/25 08:05 Oxygen Delivery Method Room Air 08/06/25 08:05 Shortness of Breath / Dyspnea MDM Narrative MDM Narrative:: Patient p/w SOB and LE swelling. VS and exam as listed. Ordered labs, CXR, EKG. Offered medications for sympotm relief. #Acute decompensated heart failure #Heart failure with reduced ejection fraction, EF 20 to 25% #Combined systolic and diastolic heart failure Patient endorses orthopnea, significant bilateral lower extremity edema 4+, scrotal edema noted as well. BNP significantly elevated, Bumex dose was increased outpatient Was given Bumex 2 mg x 1 Patient will be admitted for IV diuresis inpatient. #PA likely secondary to venous congestion Case discussed with Attending Physician Dr. Samantha Sargent MD Internal Medicine PGY-2 Disclaimer: This note was dictated by speech recognition. 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 Patient data External records reviewed:: [facility] previous records Clinical information provided by:: patient Social determinants that could affect healthcare access:: none Patient has the following chronic illnesses:: Positive for heart failure with reduced ejection fraction, EF 20 to 25% 03/2025, combined systolic and diastolic heart failure, mild to moderate AV stenosis, benign prostate hypertrophy, ?Cirrhosis, hepatitis C infection, infrarenal abdominal aortic aneurysm, peripheral arterial disease status post leg stent, hyperlipidemia and former cocaine use and chronic smoker with 30 pack years How is presenting disease/condition affected by chronic disease/condition?: exacerbated by Evaluation data The following diagnostics were reviewed and interpreted by me:: lab results, radiology exam(s) and EKG tracing(s) Lab and/or radiology exams considered but not ordered:: EKG sinus rhythm, chest x-ray shows mild bibasilar pneumonia however likely vascular congestion, BNP > 3280 troponin negative, creatinine 1.6, sodium 147 Interpretation Summary: Likely acute decompensated heart failure findings Medications / Prescriptions Medications or Prescriptions considered but not ordered:: Not applicable Medication administrations:: Medication Administration History Acetaminophen (Acetaminophen 325 Mg Tablet) 650 mg PO Q6H PRN PRN Reason: PAIN SCALE 1-3 (mild Stop: 09/05/25 15:20 Amiodarone HCl (Amiodarone Hcl 200 Mg Tablet) 200 mg PO DAILY CHYNA Stop: 09/09/25 08:59 Last Admin: 08/11/25 08:27 Dose: 200 mg Documented By: Admin: 08/10/25 08:05 Dose: 200 mg Documented By: PETER Aspirin (Aspirin Ec 81 Mg Tabec) 81 mg PO QDAY CHYNA Stop: 09/06/25 08:59 Last Admin: 08/11/25 08:27 Dose: 81 mg Documented By: Admin: 08/10/25 08:06 Dose: 81 mg Documented By: Admin: 08/09/25 08:25 Dose: 81 mg Documented By: Admin: 08/08/25 08:32 Dose: 81 mg Documented By: SC Admin: 08/07/25 08:59 Dose: 81 mg Documented By: LYNDA Atorvastatin Calcium (Atorvastatin Calcium 20 Mg Tablet) 80 mg PO QPM CHYNA Stop: 09/06/25 20:59 Last Admin: 08/11/25 20:29 Dose: 80 mg Documented By: Admin: 08/10/25 21:29 Dose: 80 mg Documented By: Admin: 08/09/25 21:59 Dose: 80 mg Documented By: Admin: 08/08/25 20:42 Dose: 80 mg Documented By: Admin: 08/07/25 20:15 Dose: 80 mg Documented By: MICHELLE Bumetanide (Bumetanide Inj 0.25 Mg/Ml Vial 4 Ml) 2 mg IVP QDAY CHYNA Stop: 09/06/25 08:59 Last Admin: 08/11/25 08:28 Dose: 2 mg Documented By: Admin: 08/10/25 08:04 Dose: 2 mg Documented By: Admin: 08/09/25 08:25 Dose: 2 mg Documented By: Admin: 08/08/25 08:31 Dose: 2 mg Documented By: SC Admin: 08/07/25 08:58 Dose: 2 mg Documented By: LYNDA Clopidogrel Bisulfate (Clopidogrel Bisulfate 75 Mg Tablet) 75 mg PO QDAY CHYNA Stop: 09/06/25 08:59 Last Admin: 08/11/25 08:27 Dose: 75 mg Documented By: Admin: 08/10/25 08:06 Dose: 75 mg Documented By: Admin: 08/09/25 08:25 Dose: 75 mg Documented By: Admin: 08/08/25 08:32 Dose: 75 mg Documented By: SC Admin: 08/07/25 08:59 Dose: 75 mg Documented By: LYNDA Docusate Sodium (Docusate Sod 100 Mg Capsule) 100 mg PO BID CHYNA; Protocol Stop: 09/07/25 08:59 Last Admin: 08/11/25 20:31 Dose: Not Given Documented By: SERENA Non-Admin Reason: Patient Refused Admin: 08/11/25 08:35 Dose: 100 mg Documented By: Admin: 08/10/25 21:30 Dose: Not Given Documented By: RH Non-Admin Reason: Patient Refused Admin: 08/10/25 08:06 Dose: Not Given Documented By: PETER Non-Admin Reason: Patient Refused Admin: 08/09/25 21:59 Dose: Not Given Documented By: HV Non-Admin Reason: Patient Refused Admin: 08/09/25 08:27 Dose: Not Given Documented By: PETER Non-Admin Reason: Patient Refused Admin: 08/08/25 20:37 Dose: Not Given Documented By: ELIDA Non-Admin Reason: Patient Refused Admin: 08/08/25 09:56 Dose: Not Given Documented By: SC Non-Admin Reason: Patient Refused Heparin Sodium (Porcine) (Heparin Sod Inj 5000 Unit/Ml Vial) 5,000 unit SC Q12HR [facility] Stop: 08/20/25 20:59 Last Admin: 08/11/25 20:28 Dose: 5,000 unit Documented By: SERENA Co-signed By: MARIBEL Admin: 08/11/25 08:28 Dose: 5,000 unit Documented By: AURORA Co-signed By: SALUD Admin: 08/10/25 21:28 Dose: 5,000 unit Documented By: ESTELA Co-signed By: MARIBEL Admin: 08/10/25 08:06 Dose: 5,000 unit Documented By: PETER Co-signed By: SALUD Admin: 08/09/25 21:59 Dose: 5,000 unit Documented By: MICHELLE Co-signed By: KAREN Admin: 08/09/25 08:26 Dose: 5,000 unit Documented By: PETER Co-signed By: JANAY Admin: 08/08/25 20:42 Dose: 5,000 unit Documented By: VR Co-signed By: TRACEE Admin: 08/08/25 08:32 Dose: 5,000 unit Documented By: RAUDEL Co-signed By: ZACHERY Admin: 08/07/25 20:16 Dose: 5,000 unit Documented By: MICHELLE Co-signed By: SHAINA Admin: 08/07/25 08:58 Dose: 5,000 unit Documented By: LYNDA Co-signed By: MARK Admin: 08/06/25 21:46 Dose: 5,000 unit Documented By: MICHELLE Co-signed By: ИРИНА Ceftriaxone Sodium/Dextrose (Rocephin/D5w 1gm Iv Premix) 1 gm in 50 mls @ 100 mls/hr IV QDAY CHYNA Stop: 08/18/25 12:08 Last Admin: 08/11/25 12:26 Dose: 100 mls/hr Documented By: AURORA Lactulose (Lactulose Syrup 20 Gm/30 Ml Udc) 20 gm PO QDAY CHYNA; Protocol Stop: 09/06/25 08:59 Last Admin: 08/11/25 08:35 Dose: 20 gm Documented By: Admin: 08/10/25 08:06 Dose: Not Given Documented By: PETER Non-Admin Reason: Patient Refused Admin: 08/09/25 08:27 Dose: Not Given Documented By: PETER Non-Admin Reason: Patient Refused Admin: 08/08/25 09:56 Dose: Not Given Documented By: RAUDEL Non-Admin Reason: Patient Refused Admin: 08/07/25 08:59 Dose: 20 gm Documented By: LYNDA Ondansetron HCl (Ondansetron Inj 2 Mg/Ml Inj 2 Ml) 4 mg IVP Q6H PRN; Protocol PRN Reason: NAUSEA OR VOMITING Stop: 09/05/25 15:20 Pantoprazole Sodium (Pantoprazole 40 Mg Tablet) 40 mg PO QDAY CHYNA Stop: 09/06/25 08:59 Last Admin: 08/11/25 08:27 Dose: 40 mg Documented By: Admin: 08/10/25 08:06 Dose: 40 mg Documented By: Admin: 08/09/25 08:25 Dose: 40 mg Documented By: Admin: 08/08/25 08:32 Dose: 40 mg Documented By: Admin: 08/07/25 08:59 Dose: 40 mg Documented By: LYNDA Sacubitril/Valsartan (Sacubitril 24 Mg/Valsartan 26 Mg Tablet) 1 tab PO BID CHYNA Stop: 09/06/25 08:59 Last Admin: 08/11/25 20:30 Dose: 1 tab Documented By: Admin: 08/11/25 08:27 Dose: 1 tab Documented By: Admin: 08/10/25 21:29 Dose: 1 tab Documented By: ESTELA Sennosides (Senna Tablet) 1 tab PO QDAY CHYNA; Protocol Stop: 09/07/25 08:59 Last Admin: 08/11/25 08:35 Dose: 1 tab Documented By: Admin: 08/10/25 21:30 Dose: Not Given Documented By: ESTELA Non-Admin Reason: prior shift Admin: 08/09/25 08:27 Dose: Not Given Documented By: PETER Non-Admin Reason: Patient Refused Admin: 08/08/25 09:56 Dose: Not Given Documented By: RAUDEL Non-Admin Reason: Patient Refused Tamsulosin HCl (Tamsulosin Hcl 0.4 Mg Capsule) 0.4 mg PO QDAY CHYNA Stop: 09/06/25 08:59 Last Admin: 08/11/25 08:26 Dose: 0.4 mg Documented By: Admin: 08/10/25 08:05 Dose: 0.4 mg Documented By: Admin: 08/09/25 08:25 Dose: 0.4 mg Documented By: Admin: 08/08/25 08:32 Dose: 0.4 mg Documented By: Admin: 08/07/25 08:59 Dose: 0.4 mg Documented By: LYNDA Discontinued Medications Amiodarone HCl (Amiodarone Hcl 200 Mg Tablet) 200 mg PO BID [facility] Stop: 09/05/25 10:59 Last Admin: 08/09/25 08:24 Dose: 200 mg Documented By: Admin: 08/08/25 20:42 Dose: 200 mg Documented By: Admin: 08/08/25 08:32 Dose: 200 mg Documented By: Admin: 08/07/25 20:15 Dose: 200 mg Documented By: Admin: 08/07/25 08:59 Dose: 200 mg Documented By: Admin: 08/06/25 21:46 Dose: 200 mg Documented By: Admin: 08/06/25 10:55 Dose: 200 mg Documented By: VICENTE Bumetanide (Bumetanide Inj 0.25 Mg/Ml Vial 4 Ml) 2 mg IVP X1 ONE Stop: 08/06/25 09:17 Last Admin: 08/06/25 10:55 Dose: 2 mg Documented By: EF Bumetanide (Bumetanide Inj 0.25 Mg/Ml Vial 4 Ml) 1 mg IVP X1 ONE Stop: 08/06/25 15:45 Last Admin: 08/06/25 15:56 Dose: 1 mg Documented By: VICENTE Oseltamivir Phosphate (Oseltamivir 75 Mg Capsule) 75 mg PO BID CHYNA Stop: 08/13/25 20:59 Last Admin: 08/11/25 08:27 Dose: 75 mg Documented By: Admin: 08/10/25 21:28 Dose: 75 mg Documented By: Admin: 08/10/25 08:06 Dose: 75 mg Documented By: Admin: 08/09/25 21:59 Dose: 75 mg Documented By: Admin: 08/09/25 08:37 Dose: 75 mg Documented By: Admin: 08/08/25 20:42 Dose: 75 mg Documented By: Admin: 08/08/25 08:32 Dose: 75 mg Documented By: Admin: 08/07/25 20:15 Dose: 75 mg Documented By: Admin: 08/07/25 08:59 Dose: 75 mg Documented By: Admin: 08/06/25 21:46 Dose: 75 mg Documented By: MICHELLE Potassium Chloride (Potassium Chloride 10% 20 Meq/15 Ml Udc) 40 meq PO X1 ONE Stop: 08/07/25 12:08 Last Admin: 08/07/25 12:44 Dose: 40 meq Documented By: LYNDA Sacubitril/Valsartan (Sacubitril 24 Mg/Valsartan 26 Mg Tablet) 1 tab PO BID CHYNA Stop: 09/06/25 08:59 Last Admin: 08/10/25 08:06 Dose: 1 tab Documented By: Admin: 08/09/25 21:59 Dose: 1 tab Documented By: Admin: 08/09/25 08:25 Dose: 1 tab Documented By: Admin: 08/08/25 20:43 Dose: 1 tab Documented By: Admin: 08/08/25 08:32 Dose: 1 tab Documented By: SC Admin: 08/07/25 20:15 Dose: 1 tab Documented By: Admin: 08/07/25 08:59 Dose: 1 tab Documented By: LYNDA As above Consultations Consultation(s) initiated? (list below): Yes Consultation #1 (Physician, Specialty, Details): see mdm Diagnosis Shortness of Breath Differential Diagnosis: congestive heart failure Most likely diagnosis given after review of the tests above:: Acute decompensated heart failure Admission Indicated Admission indicated?: indicated Explain why admission is indicated or not indicated:: Patient will be admitted for ADHF management, likely will need a cardiology consult with outpatient db2 developer who is available in house Admission Request Was there a request for admission?: Yes Admission Attestation Admission request attestation: Discussed case with Hospitalist service regarding admission. Discussed patients ED course, exam findings, labs, and radiology results. The Hospitalist [agrees] to accept the patient for admission. Disposition Plan Disposition Plan: Admit Critical Care Time Critical Care Time Critical Care Time: Yes Total Critical Care Time (min.): 45 Attestation: ?I spent 45minutes of critical care time with this patient not including reportable procedures. There was an acute impairment of an organ system with a high probability of imminent or life threatening deterioration in the patient's condition. Interventions and changes required in the course of therapy are located in the chart. Time involved was spent in direct patient care, reviewing ancillary data, old records, consulting with decision makers, EMS, other doctors, giving orders and documenting. Discharge Plan Plan Patient Disposition: Admit Acute Care w/in Hospital Problem List Clinical Impression: CHF exacerbation
[2025-08-06 08:58] LABS: INR 1.3 (0.9-1.3); Partial Thromboplastin Time 26.8 Seconds (22.0-36.0); Prothrombin Time 14.0 Seconds (9.0-12.2)
[2025-08-06 09:04] LABS: Ammonia 14 uMol/L (11-32)
[2025-08-06 09:06] LABS: Alanine Aminotransferase 33 U/L (10-49); Albumin, Serum 3.8 gm/dL (3.4-4.8); Albumin/Globulin Ratio 1.4 (1.2-2.2); Alkaline Phosphatase 121 U/L (46-116); Anion Gap 13 (7-16); Aspartate Amino Transferase 52 U/L (0-34); B-Type Natriuretic Peptide > 3280 pg/mL (0-100); BUN/Creatinine Ratio 13 Ratio (12-20); Bilirubin,Total 0.9 mg/dL (0.3-1.2); Blood Urea Nitrogen 20 mg/dL (9-23); Calcium 9.9 mg/dL (8.3-10.6); Calcium (Corrected) 10.1 mg/dL (8.5-10.1); Carbon Dioxide 27.5 mMol/L (20.0-31.0); Cardiac Risk Estimate 2.6 RATIO (4.0-6.7); Chloride 107 mMol/L (98-107); Cholesterol 98 mg/dL (132-200); Creatinine (Component) 1.6 mg/dL (0.6-1.3); Estimated Creatinine Clearance 63.9 mL/min (>60); Globulin 2.7 gm/dL (2.3-3.5); Glucose 104 mg/dL (74-106); HDL Cholesterol 37 mg/dL (40-60); LDL Cholesterol,Calculated 50 mg/dL (0-130); Magnesium 2.1 mg/dL (1.6-2.6); Osmolality,Calculated 295 (275-295); Potassium 5.0 mMol/L (3.4-5.1); Sodium 147 mMol/L (136-145); Total Protein 6.5 gm/dL (5.7-8.2); Triglycerides 54 mg/dL (30-150); Troponin I < 0.020 ng/mL (0.0-0.045); eGFR 48 See Note
[2025-08-06] MEDS: AMIODARONE HCL 200 MG TABLET PO ×2 (10:55→21:46)
[2025-08-06] MEDS: BUMETANIDE INJ 0.25 MG/ML VIAL 4 ML 2 MG IVP (10:55)
[2025-08-06 10:59] LABS: Collection Type, Urine Catheter
[2025-08-06 11:21] LABS: Bilirubin,Urine Negative (Negative); Blood,Urine 1+ (Negative); Clarity,Urine Turbid (Clear/Hazy); Color,Urine Yellow (Lt Yel-Yel); Glucose, Urine Negative (Negative); Ketones,Urine Negative (Negative); Leukocyte Esterase,Urine Positive (Negative); Nitrite,Urine Negative (Negative); PH,Urine 6.0 (5.0-7.0); Protein,Urine 2+ (Neg - Trace); RBC,Urine 15 /hpf (0-3); Specific Gravity,Urine 1.025 (1.001-1.035); Squamous Epithelial Cell,Urine 8 /hpf (0-5); Urobilinogen,Urine Negative mg/dL (0.0-1.0); WBC,Urine 197 /hpf (0-5)
[2025-08-06 11:23] LABS: Amphetamine/Methamp Scrn,U Negative (Negative); Barbiturate Screen,Urine Negative (Negative); Benzodiazepines Screen,Urine Negative (Negative); Benzoylecgonine Screen, Ur Negative (Negative); Fentanyl Screen,Urine Negative (Negative); Opiate Screen,Urine Negative (Negative); THC Screen,Urine Negative (Negative)
--- NOTE | 2025-08-06 15:06 | ESHP_ITS ---
<Statement entered by Cleo Deleon MD - 08/07/25 16:34> Mr. King is a 65-year-old male with past medical history significant for HFrEF with ejection fraction 40 to 45% back in March, combined systolic and diastolic heart failure, mild to moderate AV stenosis, BPH, possible cirrhosis, possible hep C infection, intrarenal abdominal aortic aneurysm, and recent iliac stent on aspirin Plavix, previous polysubstance user of cocaine who presented to the ED with chief complaint of lower extremity swelling. Patient states that he saw his games dealer earlier that week and increase his Bumex from 1 mg p.o. to 2 mg p.o. Patient has been compliant with all of his medications however patient's lower extremity swelling has not improved since recent change. On physical exam, patient presented with expiratory wheezing with crackles in the lower bases, 4+ pitting edema all the way to the scrotum. Patient does state that his normal weight is around 230 pounds but currently weighs 275 pounds. Patient will be admitted for further management of acute on chronic heart failure exacerbation. Patient will be on IV Bumex and increased dose based on total urine output, fluid restriction, low-salt diet, GDMT once patient blood pressure can tolerate, and will be on Tamiflu 75 mg twice daily for influenza A pneumonia, patient tested positive for in the ER. I discussed with and supervised the technology development intern physician who took care of this patient. I personally saw and examined the patient and discussed the assessment and plan with the entire medicine team, including my attending Dr. Mclaughlin, I agree with most of the assessment and plan as documented below Cleo Deleon M.D. PGY-3 Disclaimer: Despite multiple revisions, due to the dictation software being used, the document bellow may not be free of grammatical errors including phonetic/typographic errors. However, this does not deter from our commitment to providing health care in the patient's best interest in mind. Documentation for date of: 08/06/25 HPI History of Present Illness History of present illness: per ed h and p and my interview with patient: Mr. King is a 65-year-old male with past medical history of heart failure with reduced ejection fraction, EF 20-25% 03/2025, combined systolic and diastolic heart failure, mild to moderate AV stenosis, benign prostate hypertrophy, ?Cirrhosis, hepatitis C infection, infrarenal abdominal aortic aneurysm, peripheral arterial disease status post iliac stent (on asa and plavix), hyperlipidemia and former cocaine use and chronic smoker with 30 pack years who presented to [facility] emergency department with a chief complaint of bilateral lower extremity edema. Patient reported that he saw his games dealer earlier this week on Friday who increased his Bumex dose to 2 mg p.o. daily despite this he continued to have worsening lower extremity edema which has increased all the way up to his scrotum and he has difficulty urination. pt questions why this keeps happening to him despite taking his medications as prescribed. pt states that he used to weigh about 230 lbs but now weighs about 275. He states that he sleeps in the recliner at ~45 degrees with his feet elevated. Social prior cocaine and tobacco smoking 30 pack year hx, no current smoking or drug use no current etoh use he [facility] and ambulates with acane or with a walker (he notes that someitmes the walker does not fit into certain spaces) ros endorses shortness of breath, orthopnea, mild dysuria, urinary frequency (on bumex) denies, chest pain, nausea, vomiting, bowel changes, syncope ED course sanders catheter inserted (severely edematous scrotum, burried penis) Vital signs significant for slight tachypnea 22, on RA, speaking in short sentences Dx - Labs pertinent for: Cr 1.6 (baseline 1.0) , BNP >3280, UTOX negative, UA with pyuria, 2+ protein, 1+ blood - imaging pertinent for: CXR with mild bibasilar pneumonia - on exam jvd is below scm, BLE edematous up to scrotum. Tx - bumex 2mg IV - amiodorone 200 mg Past Medical History Surgical History OTHER SURGICAL HX: illiac stent (for PAD Exam Vital Signs Temp Pulse Resp BP Pulse Ox O2 Del Method 98.0 F 107 H 22 H 119/83 98 Room Air 08/06/25 12:58 08/06/25 14:33 08/06/25 14:33 08/06/25 12:58 08/06/25 12:58 08/06/25 12:58 Narrative Exam GENERAL: no acute distress (c/o shortness of breath and winded with talking), AAO x3, sitting at 45 degrees in bed HEENT: Head AT/ NC. Mucous membranes moist. PERRL. poor dentition NECK: Supple, no lymphadenopathy, no carotid bruits. CARDIOVASCULAR: RRR. Normal S1/S2, No m/r/g 2+ pitting edema of bilateral LEs up to the scrotum , RESPIRATORY:expiratory wheezing and some coarse crackles in lower bases. GASTROINTESTINAL: obese, Abdomen soft, non tender no palpable masses. Bowel sounds present : sanders catheter in place, burried penis, and severe scrotal edema MUSCULOSKELETAL:? No cyanosis or edema, no visible joint swelling. NEUROLOGICAL: CN II-XII grossly intact. No focal deficits. Sensation intact, symmetric. PSYCHIATRIC: Awake and alert, not agitated, normal mood and affect. SKIN: No obvious rashes, no jaundice, normal turgor. Results: Labs 08/09/25 04:42 08/09/25 04:42 Labs: Short CBC 08/06/25 Range/Units 08:23 WBC 8.4 (3.8-10.6) Thou/mm3 Hgb 12.0 L (13.5-16.0) g/dL Hct 38.8 L (41.0-53.0) % Plt Count 174 (140-440) Thou/mm3 BMP 08/06/25 08:23 Sodium 147 H Potassium 5.0 Chloride 107 Carbon Dioxide 27.5 BUN 20 Creatinine 1.6 H Glucose 104 Calcium 9.9 Cardiac Enzymes 08/06/25 Range/Units 08:23 Troponin I < 0.020 (0.0-0.045) ng/mL Liver Function 08/06/25 Range/Units 08:23 Total Bilirubin 0.9 (0.3-1.2) mg/dL AST 52 H (0-34) U/L ALT 33 (10-49) U/L Alkaline Phosphatase 121 H (46-116) U/L Albumin 3.8 (3.4-4.8) gm/dL Urine 08/06/25 Range/Units 10:50 Urine Color Yellow (Lt Yel-Yel) Urine Clarity Turbid A (Clear/Hazy) Urine pH 6.0 (5.0-7.0) Ur Specific [place] 1.025 (1.001-1.035) Urine Protein 2+ A (Neg - Trace) Urine Glucose (UA) Negative (Negative) Quality Measures Quality Measures VTE prophylaxis Medications Home Medications and Allergies Home Medications ?Medication ?Instructions ?Recorded ?Confirmed ?Type tamsulosin 0.4 mg capsule 0.4 mg PO DAILY 03/15/2505/25 History acetaminophen 500 mg tablet 500 mg PO BID 08/06/2505/25 History amiodarone 200 mg tablet 200 mg PO QDAY 08/06/2505/25 History aspirin 81 mg tablet,delayed 81 mg PO QDAY 08/06/25 History release bisacodyl 10 mg rectal suppository 10 mg MA QDAY PRN c onstipation 08/06/25 08/06/25 History (Dulcolax (bisacodyl)) bumetanide 1 mg tablet 1 mg PO QDAY 08/06/25 History clopidogrel 75 mg tablet 75 mg PO QDAY 08/06/2508/06 History ferrous sulfate 325 mg (65 mg 325 mg PO TID 08/06/25 0 08/06/25 History iron) tablet (FeroSul) melatonin 5 mg capsule 5 mg PO HS 08/06/25 08/06/25 History metoprolol succinate 25 mg 25 mg PO QDAY 08/06/2505/25 History tablet,extended release 24 hr pantoprazole 40 mg tablet,delayed 40 mg PO QDAY 08/06/25 History release sacubitril 24 mg-valsartan 26 mg 1 tab PO BID 08/06/25 08/06/25 History tablet (Entresto) Allergies Allergy/AdvReac Type Severity Reaction Status Date / Time No Known Allergies Allergy Verified 07/24/25 11:06 Visit Medications Amiodarone HCl (Amiodarone Hcl 200 Mg Tablet) 200 mg PO BID CHNYA Stop: 09/05/25 10:59 Last Admin: 08/06/25 10:55 Dose: 200 mg Discontinued Medications Bumetanide (Bumetanide Inj 0.25 Mg/Ml Vial 4 Ml) 2 mg IVP X1 ONE Stop: 08/06/25 09:17 Last Admin: 08/06/25 10:55 Dose: 2 mg Assessment & Plan Plan Mr. King is a 65-year-old male with past medical history of heart failure with reduced ejection fraction, EF 20-25% 03/2025, combined systolic and diastolic heart failure, mild to moderate AV stenosis, benign prostate hypertrophy, ?Cirrhosis, hepatitis C infection, infrarenal abdominal aortic aneurysm, peripheral arterial disease status post iliac stent (on asa and plavix), hyperlipidemia and former cocaine use and chronic smoker with 30 pack years who presented to [facility] emergency department with a chief complaint of bilateral lower extremity edema up to scrotum, admitted for acute congestive heart failure exacerbation and PA Acute Congestive Heart Failure Exacerbation #HFrEF, EF 20-25% #Combined systolic and diastolic heart failure #h/o V-tach Last Echo 03/2025 EF 20-25 , systolic and diastolic hf, mild to mod av stenosis Volume Overload, BNP >3200, severe edema to the scrotum, and crackles on auscultation bilaterally. 230 Dry weight (pt states that he now weighs about 275) - Bumetanide 2mg IV x1 and 1mg x1 (IV diureses >1L negative per day until approach euvolemia / worsening renal function) - Hold beta-blockers during decompensation - Amiodorone 200 mg BID - Low salt diet - Fluid restriction 1800cc - daily weight: 122.4 kg - net output: - On GDMT outpatient, follows up with games dealer Dr. Ernie Mcclelland #prerenal PA Cr: 1.6 Ddx: Consider pre vs intra vs post renal etiologies Dx - BUN/Cr ratio:13 , which is <20, so suspect prerenal in setting of CHF exacerbation and low intravascular volume. - Daily CMP Tx - Avoid nephrotoxic medications - strict i and o - continue diuresis #Infrarenal abdominal aortic aneurysm, 3.3 cm #Peripheral arterial disease #S/p Iliac Stent #Narrowing of left common iliac artery. - cont ASA and plavix COPD, not on home O2 -breathing treatments as needed - cont diuresing Cirrhosis? hepatitis C infecion BPH - cont tamsulosin 0.4 mg qd HLD Chronic smoking history, 30 pack years Not an active smoker currently, history of 30 pack years, no lung nodules/lymphadenopathy noted on CTA - Outpatient screening as appropriate Dispo: admit for chf exacerbation, undergoing diuresis, found to have PA Diet: cardiac with mechanical alteration , fluid restriction 1800cc Bowel Reg: lactulose 20 qd VTE ppx: heparin 5000 bid GI ppx: protonix 40 po qd Code status: FULL Plan discussed with Dr. Menchaca, Dr Deleon, and Dr. Lissette Dooley MD PGY1 Attending Provider Attestation/Addendum I have examined the patient, reviewed labs and imaging findings, discussed the case with the resident(s), and reviewed entered orders. I agree with the plan of care as outlined in this note, with these additional summaries/recommendations: After examination of the patient and review of the clinical data, I feel that this patient needs admission to the hospital for further treatment and evaluation. Patient is a 65-year-old male with a medical history of HFrEF (20-25%), liver disease, primary hypertension, BPH, vitamin D deficiency, and former smoker who presents to [facility] emergency department on 08/06/2025 with chief complaint of shortness of breath and lower extremity swelling. Patient diagnosed with acute CHF exacerbation. He reports he has gained approximately 20 pounds over the last couple months. Previous echocardiogram shows ejection fraction of 20 to 25%. Patient endorses dyspnea, orthopnea, and weight gain. 3+ bilateral lower extremity edema up into the abdomen. BNP >3280. Start preload reduction with IV Bumex and fluid restriction. Sanders catheter in place and monitor urinary output closely. Strict I's and O's. Cardiac diet. Start VELMA/ARB for afterload reduction. Continue home Coreg for neurohormonal blockade. Will resume Farxiga once more improved and PA resolved. Patient reports compliance with home medications and unclear trigger for decompensated heart failure. Possibly secondary to worsening ejection fraction.. Patient will need 6 months of maximum goal-directed medical therapy to qualify for ICD placement. Consult patient's games dealer, recommendations appreciated. Imaging study also showed cirrhosis although no evidence of synthetic liver dysfunction and we will monitor for now. Follow-up outpatient. Minimal PA present most likely secondary to cardiorenal syndrome. On admission creatinine 1.6 and BUN 20. Continue diuresis and monitor for improvement. If worsens we will consider nephrology consultation. Outpatient follow-up for hepatitis C. Patient updated on the plan and in agreement. All questions answered to satisfaction. Please see residents note for additional details and management. Dr. Lissette MD
[2025-08-06] MEDS: BUMETANIDE INJ 0.25 MG/ML VIAL 4 ML 1 MG IVP (15:56)
--- NOTE | 2025-08-06 18:33 | PC.NURSE ---
REPORT WAS CALLED TO HUAN CRAIG ON TELEMETRY; NO FURTHER QUESTIONS. PATIENT TAKEN TO ROOM 270
--- NOTE | 2025-08-06 18:40 | PC.NURSE ---
Addendum entered by Leigh Pozo RN 08/06/25 18:54: Left second digit toe amputation. Original Note: Patient A&O x4. Lung sounds clear but diminished on RA. Bilateral scabs on lower ext. Scab on left upper buttock. Swelling BLE +4 pitting edema up to the abdomen. Scrotal edema. Redness and warmth on blt upper thighs. Dry, dark calluses. Bed locked in lowest position, call light and personal belongings within reach. Patient instructed to call for assistance when needed.
--- NOTE | 2025-08-06 18:58 | PC.CC ---
Wood King. is a 65-year-old male admitted for Acute CHF Exacerbation. Cushion Assembler made contact with Pt at bedside to complete initial and discuss discharge disposition. Role and reason for the contact was explained to Pt. Demographic information was verified. Pt identified his Brother Mook King [phone] as his surrogate decision maker. Pt is independent with all ADLs. Pt utilizes seated walker as source of DME. Pt?s choice of pharmacy is [facility]. PCP is Julian Dick. At time of discharge patient will return home, neighbor Laverne [phone] will provide transportation. Discharge Plan: Home Next of Kin: Brother Mook King [phone] PCP: Julian Dick
[2025-08-06] MEDS: OSELTAMIVIR 75 MG CAPSULE PO (21:46)
[2025-08-06] MEDS: HEPARIN SOD INJ 5000 UNIT/ML VIAL SC (21:46)
[2025-08-07] VITALS (14 sets, daily range): BP systolic 101–128; BP diastolic 56–90; PULSE 74–118; RESP 13–98; TEMP 35.8–36.4; O2SAT 93–97; BMI 35.4
[2025-08-07 06:30] LABS: Basophils # (Auto) 0.1 Thou/mm3 (0.0-0.2); Basophils % (Auto) 1 % (0-2.5); Eosinophils # (Auto) 0.2 Thou/mm3 (0.0-0.5); Eosinophils % (Auto) 3 % (0-10); Hematocrit 38.9 % (41.0-53.0); Hemoglobin 11.9 g/dL (13.5-16.0); Immature Granulocytes Auto 0.04 Thou/mm3 (0.00-0.00); Lymphocytes # (Auto) 0.8 Thou/mm3 (1.0-4.8); Lymphocytes % (Auto) 11 % (10-50); Mean Corpuscular HGB Conc 30.6 g/dl (31.0-37.0); Mean Corpuscular Hemoglobin 29.0 pg (25.0-35.0); Mean Corpuscular Volume 95 fL (80-100); Monocytes # (Auto) 0.7 Thou/mm3 (0.0-0.8); Monocytes % (Auto) 8 % (0-12); Neutrophils # (Auto) 5.9 Thou/mm3 (1.8-7.7); Neutrophils % (Auto) 77 % (37-80); Nucleated Red Blood Cell # 0.00 Thou/mm3 (0.00-0.00); Nucleated Red Blood Cell % 0 /100 WBC (0); Platelet Count 177 Thou/mm3 (140-440); RDW Standard Deviation 54.1 fL (35.1-43.9); Red Blood Count 4.11 Miln/mm3 (4.50-5.90); White Blood Count 7.8 Thou/mm3 (3.8-10.6)
--- NOTE | 2025-08-07 07:21 | ESPR_ITS ---
Documentation for date of: 08/07/25 Exam Vital Signs Temp Pulse Resp BP Pulse Ox O2 Del Method 96.8 F 80 18 119/80 94 L Room Air 08/07/25 04:00 08/07/25 06:34 08/07/25 06:34 08/07/25 04:00 08/07/25 04:00 08/07/25 04:00 Objective Labs 08/08/25 05:20 08/08/25 05:20 Labs: Laboratory Results - last 24 hr 08/06/25 08/06/25 08/07/25 08:23 10:50 05:29 WBC 8.4 7.8 RBC 4.06 L 4.11 L Hgb 12.0 L 11.9 L Hct 38.8 L 38.9 L MCV 96 95 MCH 29.6 29.0 MCHC 30.9 L 30.6 L RDW Std Deviation 55.0 H 54.1 H Plt Count 174 177 Neut % (Auto) 79 77 Lymph % (Auto) 10 11 Hubbard % (Auto) 8 8 Eos % (Auto) 2 3 Baso % (Auto) 1 1 Neut # (Auto) 6.6 5.9 Lymph # (Auto) 0.8 L 0.8 L Hubbard # (Auto) 0.7 0.7 Eos # (Auto) 0.2 0.2 Baso # (Auto) 0.1 0.1 Immature Gran # (Auto) 0.07 H 0.04 H Absolute Nucleated RBC 0.00 0.00 Immature Gran % 1 H 1 H Nucleated RBC % 0 0 PT 14.0 H INR 1.3 APTT 26.8 Sodium 147 H Potassium 5.0 Chloride 107 Carbon Dioxide 27.5 Anion Gap 13 BUN 20 Creatinine 1.6 H Estim Creat Clear Calc 63.9 eGFR 48 L BUN/Creatinine Ratio 13 Glucose 104 Calculated Osmolality 295 Calcium 9.9 Corrected Calcium 10.1 Magnesium 2.1 Total Bilirubin 0.9 AST 52 H ALT 33 Alkaline Phosphatase 121 H Ammonia 14 Troponin I < 0.020 B-Natriuretic Peptide > 3280 H* Total Protein 6.5 Albumin 3.8 Globulin 2.7 Albumin/Globulin Ratio 1.4 Triglycerides 54 Cholesterol 98 L LDL Cholesterol, Calc 50 HDL Cholesterol 37 L Cholesterol/HDL Ratio 2.6 L Ur Collection Type Catheter Urine Color Yellow Urine Clarity Turbid A Urine pH 6.0 Ur Specific [place] 1.025 Urine Protein 2+ A Urine Glucose (UA) Negative Urine Ketones Negative Urine Blood 1+ A Urine Nitrite Negative Urine Bilirubin Negative Urine Urobilinogen (Auto) Negative Ur Leukocyte Esterase Positive Urine RBC 15 H Urine WBC 197 H Ur Squamous Epith Cells 8 H Urine Bacteria None Urine Opiates Screen Negative Urine Fentanyl Screen Negative Ur Barbiturates Screen Negative U Amphetamin/Meth Scrn Negative U Benzodiazepines Scrn Negative U Cocaine Metab Screen Negative U Marijuana (THC) Screen Negative Quality Measures Quality Measures VTE prophylaxis Assessment & Plan Assessment Current Active Medications: Generic Name Dose Route Start Last Admin Trade Name Freq PRN Reason Stop Dose Admin Acetaminophen 650 mg 08/06/25 15:21 Acetaminophen 325 Mg Tablet PO 09/05/25 15:20 Q6H PRN PAIN SCALE 1-3 (mild Amiodarone HCl 200 mg 08/06/25 11:00 08/06/25 21:46 Amiodarone Hcl 200 Mg Tablet PO 09/05/25 10:59 200 mg BID CHYNA Administration Aspirin 81 mg 08/07/25 09:00 Aspirin Ec 81 Mg Tabec PO 09/06/25 08:59 QDAY [facility] Atorvastatin Calcium 80 mg 08/07/25 21:00 Atorvastatin Calcium 20 Mg Tablet PO 09/06/25 20:59 QPM CHYNA Bumetanide 2 mg 08/07/25 09:00 Bumetanide Inj 0.25 Mg/Ml Vial 4 Ml IVP 09/06/25 08:59 QDAY CHYNA Clopidogrel Bisulfate 75 mg 08/07/25 09:00 Clopidogrel Bisulfate 75 Mg Tablet PO 09/06/25 08:59 QDAY [facility] Heparin Sodium (Porcine) 5,000 unit 08/06/25 21:00 08/06/25 21:46 Heparin Sod Inj 5000 Unit/Ml Vial SC 08/20/25 20:59 5,000 unit Q12HR CHYNA Administration Lactulose 20 gm 08/07/25 09:00 Lactulose Syrup 20 Gm/30 Ml Udc PO 09/06/25 08:59 QDAY [facility] Protocol Ondansetron HCl 4 mg 08/06/25 15:21 Ondansetron Inj 2 Mg/Ml Inj 2 Ml IVP 09/05/25 15:20 Q6H PRN NAUSEA OR VOMITING Protocol Oseltamivir Phosphate 75 mg 08/06/25 21:00 08/06/25 21:46 Oseltamivir 75 Mg Capsule PO 08/13/25 20:59 75 mg BID CHYNA Administration Pantoprazole Sodium 40 mg 08/07/25 09:00 Pantoprazole 40 Mg Tablet PO 09/06/25 08:59 QDAY [facility] Sacubitril/Valsartan 1 tab 08/07/25 09:00 Sacubitril 24 Mg/Valsartan 26 Mg Tablet PO 09/06/25 08:59 BID [facility] Tamsulosin HCl 0.4 mg 08/07/25 09:00 Tamsulosin Hcl 0.4 Mg Capsule PO 09/06/25 08:59 QDAY [facility] Attending Provider Attestation/Addendum I have examined the patient, reviewed labs and imaging findings, discussed the case with the resident(s), and reviewed entered orders. I agree with the plan of care as outlined in this note, with these additional summaries/recommendations: Patient is a 65-year-old male with a medical history of HFrEF (20-25%), hx of vtach, PAD, liver disease, primary hypertension, BPH, vitamin D deficiency, and former smoker who presents to [facility] emergency department on 08/06/2025 with chief complaint of shortness of breath and lower extremity swelling. Patient seen at bedside. No acute overnight events. Patient reports some improvement in shortness of breath although not resolved. Patient diagnosed with acute CHF exacerbation. He reports he has gained approximately 20 pounds over the last couple months. Trigger for decompensated CHF is likely related to diet. Patient reports compliance with medicines but states he mainly eats TV dinners. Patient lives at home and has a family member who intermittently helps him. Previous echocardiogram shows ejection fraction of 20 to 25%. Patient endorses dyspnea, orthopnea, and weight gain. 3+ bilateral lower extremity edema up into the abdomen. BNP >3280. Continue preload reduction with IV Bumex and fluid restriction. Patient now net -4.8L. Beal catheter in place and monitor urinary output closely. Strict I's and O's. Cardiac diet. Resume VELMA/ARB for afterload reduction. Continue home Coreg for neurohormonal blockade. Patient will need 6 months of maximum goal-directed medical therapy to qualify for ICD placement. Consult patient's special education educational assistant, recommendations appreciated. Patient has history of nonsustained V. tach and continue home amiodarone. Continue aspirin and Plavix for history of PAD. Imaging study also showed cirrhosis although no evidence of synthetic liver dysfunction and we will monitor for now. Follow-up outpatient. Minimal PA present most likely secondary to cardiorenal syndrome. On admission creatinine 1.6 and BUN 20. PA now resolved. Continue diuresis and monitor for improvement. If worsens we will consider nephrology consultation. Outpatient follow-up for hepatitis C. Patient updated on the plan and in agreement. All questions answered to satisfaction. Please see residents note for additional details and management. Dr. Lissette MD
[2025-08-07 07:23] LABS: Alanine Aminotransferase 20 U/L (10-49); Albumin, Serum 3.6 gm/dL (3.4-4.8); Albumin/Globulin Ratio 1.2 (1.2-2.2); Alkaline Phosphatase 101 U/L (46-116); Anion Gap 12 (7-16); Aspartate Amino Transferase 52 U/L (0-34); BUN/Creatinine Ratio 15 Ratio (12-20); Bilirubin,Total 1.1 mg/dL (0.3-1.2); Blood Urea Nitrogen 20 mg/dL (9-23); Calcium 9.1 mg/dL (8.3-10.6); Calcium (Corrected) 9.4 mg/dL (8.5-10.1); Carbon Dioxide 31.3 mMol/L (20.0-31.0); Chloride 101 mMol/L (98-107); Creatinine (Component) 1.3 mg/dL (0.6-1.3); Estimated Creatinine Clearance 78.5 mL/min (>60); Globulin 2.9 gm/dL (2.3-3.5); Glucose 94 mg/dL (74-106); Magnesium 2.1 mg/dL (1.6-2.6); Osmolality,Calculated 289 (275-295); Phosphorous 4.1 mg/dL (2.4-5.1); Potassium 3.5 mMol/L (3.4-5.1); Sodium 144 mMol/L (136-145); Total Protein 6.5 gm/dL (5.7-8.2); eGFR > 60 See Note
[2025-08-07] MEDS: HEPARIN SOD INJ 5000 UNIT/ML VIAL SC ×2 (08:58→20:16)
[2025-08-07] MEDS: BUMETANIDE INJ 0.25 MG/ML VIAL 4 ML 2 MG IVP (08:58)
[2025-08-07] MEDS: TAMSULOSIN HCL 0.4 MG CAPSULE PO (08:59)
[2025-08-07] MEDS: PANTOPRAZOLE 40 MG TABLET PO (08:59)
[2025-08-07] MEDS: ASPIRIN EC 81 MG TABEC PO (08:59)
[2025-08-07] MEDS: OSELTAMIVIR 75 MG CAPSULE PO ×2 (08:59→20:15)
[2025-08-07] MEDS: LACTULOSE SYRUP 20 GM/30 ML UDC PO (08:59)
[2025-08-07] MEDS: CLOPIDOGREL BISULFATE 75 MG TABLET PO (08:59)
[2025-08-07] MEDS: AMIODARONE HCL 200 MG TABLET PO ×2 (08:59→20:15)
--- NOTE | 2025-08-07 12:21 | ESCONSULT_ITS ---
HPI Data of Consult Requesting Physician: Misael Mclaughlin MD Admitting Provider: Misael Mclaughlin MD Attending Provider: Misael Mclaughlin MD Primary Care Provider: Julian Dikc MD Consult Narrative Reason for consult: Acute on chronic heart failure History of present illness: Wood King 65M pmhx significant for HFrEF (20-25% 03/2025), low-flow moderate AV stenosis, HTN, HLD, infrarenal abdominal aortic aneurysm, PAD s/p iliac stent, former injection cocaine use 30 y/a, chronic smoker (30 ppd, current non smoker), BPH, cirrhosis and Hepatitis C infection who presents with worsening BLE edema. Patient reports that although his Bumex was increased to 2 mg by bread pan greaser Dr. Mcclelland earlier last week, he continued to have worsening bilateral lower extremity edema all the way to his scrotum making him very comfortable to walk. Patient reports that he has been short of breath when speaking and when walking short distances with his walker however denies orthopnea or PND. Expresses that he wants to live at a nursing facility where his mother resides as he has no home support, closest relative being brother in [place]. Does not have a PCP or service establishment attendant, denies ever taking hepatitis C medication. 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 In ED, BP 129/87 HR 94 afebrile satting 96% RA, Hgb 11.9, Na 147, K 5.0, bicarb 27.5, BUN 20, Cr 1.6, Mg 2.1, AST/ALT 52/33, trop neg, BNP>3280, trig 54, chol low 98, LDL 50, HDL low 37 . UA turbid, 2+ protein, 1+ blood, WBC 197, 8 squamous epithelial cells, no urine bacteria. Utox neg. In ED, given Bumex 3 mg. CXR showed mild bibasilar PNA. EKG showed sinus rhythm rate 90, L axis deviation, Qtc 474. Cardiology consulted for further management of CHF exacerbation. cc:: cc: Misael Mclaughlin MD Review of Systems Review of Systems Systems Reviewed: All systems reviewed, normal except as documented Exam Vital Signs Temp Pulse Resp BP Pulse Ox O2 Del Method 96.5 F L 80 17 122/87 H 97 Room Air 08/07/25 07:55 08/07/25 08:59 08/07/25 07:55 08/07/25 08:59 08/07/25 07:55 08/07/25 07:55 Narrative Exam GENERAL: AOx3, teary, sitting up in bed HEENT: NC/AT, mucous membranes moist, bilateral sclera anicteric CARDIOVASCULAR: regular rate and rhythm, S1/S2 present, 4/6 harsh systolic murmur PULMONARY: diminished breath sounds bilaterally, no crackles, mild expiratory wheezes bilaterally ABDOMINAL: soft, non-tender, distended and edematous, no rebound/guarding, bowel sounds present EXTREMITIES: BLE 4+ pitting edema up to scrotum including scrotum, decreased sensation of bilateral dorsum of feet, diminished 1+ pedal pulses SKIN: venous stasis dermatitis, flaky bilateral feet, 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 NEURO: CN II-XII grossly intact, no focal deficits, alert, following commands Results Labs 08/07/25 05:29 08/07/25 05:29 Labs: Short CBC 08/07/25 Range/Units 05:29 WBC 7.8 (3.8-10.6) Thou/mm3 Hgb 11.9 L (13.5-16.0) g/dL Hct 38.9 L (41.0-53.0) % Plt Count 177 (140-440) Thou/mm3 BMP 08/07/25 05:29 Sodium 144 Potassium 3.5 D Chloride 101 Carbon Dioxide 31.3 H BUN 20 Creatinine 1.3 Glucose 94 Calcium 9.1 Liver Function 08/07/25 Range/Units 05:29 Total Bilirubin 1.1 (0.3-1.2) mg/dL AST 52 H (0-34) U/L ALT 20 (10-49) U/L Alkaline Phosphatase 101 D (46-116) U/L Albumin 3.6 (3.4-4.8) gm/dL Quality Measures Quality Measures VTE prophylaxis Medications Home Medications and Allergies Home Medications ?Medication ?Instructions ?Recorded ?Confirmed ?Type tamsulosin 0.4 mg capsule 0.4 mg PO DAILY 03/15/2505/25 History acetaminophen 500 mg tablet 500 mg PO BID 08/06/2505/25 History amiodarone 200 mg tablet 200 mg PO QDAY 08/06/2505/25 History aspirin 81 mg tablet,delayed 81 mg PO QDAY 08/06/25 History release bisacodyl 10 mg rectal suppository 10 mg ME QDAY PRN c onstipation 08/06/25 08/06/25 History (Dulcolax (bisacodyl)) bumetanide 1 mg tablet 1 mg PO QDAY 08/06/25 History clopidogrel 75 mg tablet 75 mg PO QDAY 08/06/2508/06 History ferrous sulfate 325 mg (65 mg 325 mg PO TID 08/06/25 0 08/06/25 History iron) tablet (FeroSul) melatonin 5 mg capsule 5 mg PO HS 08/06/25 08/06/25 History metoprolol succinate 25 mg 25 mg PO QDAY 08/06/2505/25 History tablet,extended release 24 hr pantoprazole 40 mg tablet,delayed 40 mg PO QDAY 08/06/25 History release sacubitril 24 mg-valsartan 26 mg 1 tab PO BID 08/06/25 08/06/25 History tablet (Entresto) Allergies Allergy/AdvReac Type Severity Reaction Status Date / Time No Known Allergies Allergy Verified 07/24/25 11:06 Visit Medications Acetaminophen (Acetaminophen 325 Mg Tablet) 650 mg PO Q6H PRN PRN Reason: PAIN SCALE 1-3 (mild Stop: 09/05/25 15:20 Amiodarone HCl (Amiodarone Hcl 200 Mg Tablet) 200 mg PO BID CHYNA Stop: 09/05/25 10:59 Last Admin: 08/07/25 08:59 Dose: 200 mg Aspirin (Aspirin Ec 81 Mg Tabec) 81 mg PO QDAY CHYNA Stop: 09/06/25 08:59 Last Admin: 08/07/25 08:59 Dose: 81 mg Atorvastatin Calcium (Atorvastatin Calcium 20 Mg Tablet) 80 mg PO QPM [facility] Stop: 09/06/25 20:59 Bumetanide (Bumetanide Inj 0.25 Mg/Ml Vial 4 Ml) 2 mg IVP QDAY [facility] Stop: 09/06/25 08:59 Last Admin: 08/07/25 08:58 Dose: 2 mg Clopidogrel Bisulfate (Clopidogrel Bisulfate 75 Mg Tablet) 75 mg PO QDAY [facility] Stop: 09/06/25 08:59 Last Admin: 08/07/25 08:59 Dose: 75 mg Heparin Sodium (Porcine) (Heparin Sod Inj 5000 Unit/Ml Vial) 5,000 unit SC Q12HR [facility] Stop: 08/20/25 20:59 Last Admin: 08/07/25 08:58 Dose: 5,000 unit Lactulose (Lactulose Syrup 20 Gm/30 Ml Udc) 20 gm PO QDAY [facility]; Protocol Stop: 09/06/25 08:59 Last Admin: 08/07/25 08:59 Dose: 20 gm Ondansetron HCl (Ondansetron Inj 2 Mg/Ml Inj 2 Ml) 4 mg IVP Q6H PRN; Protocol PRN Reason: NAUSEA OR VOMITING Stop: 09/05/25 15:20 Oseltamivir Phosphate (Oseltamivir 75 Mg Capsule) 75 mg PO BID [facility] Stop: 08/13/25 20:59 Last Admin: 08/07/25 08:59 Dose: 75 mg Pantoprazole Sodium (Pantoprazole 40 Mg Tablet) 40 mg PO QDAY [facility] Stop: 09/06/25 08:59 Last Admin: 08/07/25 08:59 Dose: 40 mg Sacubitril/Valsartan (Sacubitril 24 Mg/Valsartan 26 Mg Tablet) 1 tab PO BID [facility] Stop: 09/06/25 08:59 Last Admin: 08/07/25 08:59 Dose: 1 tab Tamsulosin HCl (Tamsulosin Hcl 0.4 Mg Capsule) 0.4 mg PO QDAY [facility] Stop: 09/06/25 08:59 Last Admin: 08/07/25 08:59 Dose: 0.4 mg Discontinued Medications Bumetanide (Bumetanide Inj 0.25 Mg/Ml Vial 4 Ml) 2 mg IVP X1 ONE Stop: 08/06/25 09:17 Last Admin: 08/06/25 10:55 Dose: 2 mg Bumetanide (Bumetanide Inj 0.25 Mg/Ml Vial 4 Ml) 1 mg IVP X1 ONE Stop: 08/06/25 15:45 Last Admin: 08/06/25 15:56 Dose: 1 mg Potassium Chloride (Potassium Chloride 10% 20 Meq/15 Ml Udc) 40 meq PO X1 ONE Stop: 08/07/25 12:08 Assessment & Plan Plan Wood King 65M pmhx significant for HFrEF (20-25% 03/2025), low-flow moderate AV stenosis, HTN, HLD, infrarenal abdominal aortic aneurysm, PAD s/p iliac stent, former cocaine use, chronic smoker, BPH, cirrhosis and Hepatitis C infection who presents with worsening BLE edema, admitted for acute on chronic heart failure. Cardiology consulted for further management. #Acute on chronic HFrEF, EF 20-25% 03/2025, NYHA Class III #PA 2/2 cardiorenal syndrome #Combined systolic and diastolic heart failure #Low Flow Moderate AV stenosis Patient presented with worsening bilateral lower extremity edema, recently saw bread pan greaser and Bumex was increased to 2 mg daily from 1 mg daily. However swelling persisted and worsened with associated worsening dyspnea on exertion and SOB while speaking prompting current hospitalization. Admission BNP >3820 with negative troponins. At home, patient is on GDMT of metoprolol XL 25 mg QD, Entresto 1 tablet BID, spironolactone 25 mg QD. EKG showed sinus rhythm HR 90 with QTC 474 with left axis deviation. Cr on admission 1.6 with baseline of 0.8-1 likely 2/2 to cardiorenal syndrome with acute exacerbation and fluid overload. 03/2025 Echo showed dilated cardiomyopathy, dilated LV, severe systolic expression, severe global hypokinesis, estimated EF 20 to 30%, grade 2 diastolic dysfunction, mild RV dilatation, mild RV systolic dysfunction, mild to moderate AV stenosis, low gradient due to low EF, mean PG 12-14 mmHg but JE around 1.1 to 1.2 cm? which indicates at least moderate stenosis, mild MAC, mild MR and TR, trace AI, mildly dilated LA volume at 40.5 mL/m?. Plan: - Continue Bumex 2 mg QD, goal of net 2-3L negative over 24h, CTM for contraction alkalosis and electrolyte abnormalities - If contraction alkalosis continues to worsen, hold Bumex and consider acetazolamide 500 mg x1 - Resume Entresto 1 tab BID - Hold metoprolol iso soft BP and for anticipation of further diuresis - Hold home spironolactone as well - Strict I&Os, daily weights - Low sodium diet, 1.5L fluid restriction - Inpatient repeat echocardiogram not indicated at this time, recommend to follow up for outpatient echocardiogram as patient has been on GDMT for the past 3 months and if EF has not improved, patient will benefit from ICD placement - CTM renal panel - Keep K>4 and Mg>2 at all times #Infrarenal abdominal aortic aneurysm, 3.3 cm #PAD s/p bilateral iliac artery stents #Significant narrowing of L common iliac artery stent CTAP on 06/24/2025 shows infrarenal abdominal aorta 3.3 cm small blood and 11 mm off the lateral margin of the infrarenal aorta. With bilateral iliac artery stents, significant narrowing of the left common iliac artery stent and healthy calcification of the common femoral arteries. On exam pedal pulses 1+ with diminished light touch sensation on dorsal aspect of bilateral feet. MONICO (05/01/2025): Right ankle/Brachial index 1.1 and Left ankle/Brachial index 1.1 Plan: - Continue Plavix 75 mg QD and ASA 81 mg QD - Continue to follow up outpatient for further management #History of NSVT On previous admission on 06/24/2025, patient was noted to have 1 episode of NSVT on 06/30/2025 and was started on amiodarone drip and later transition to oral amiodarone 200 mg twice daily. Telemetry reviewed and no arrhythmias noted. Plan: - Continue PO amiodarone 200 mg QD - Telemetry for cardiac monitoring #HTN #HLD On admission, BP 129/87 HR 94. Lipid panel cholesterol 98, triglycerides 54, LDL 50, HDL 37. Plan: - Continue home atorvastatin 80 mg Qhs - Continue Entresto 1 tab BID - Hold metoprolol and spironolactone as above, resume as BP tolerates #Chronic smoking history, 30 pack years #Cirrhosis #Benign prostate hypertrophy #Normocytic normochromic anemia #Hepatitis C #COPD Plan: - Management per primary team Thank you for the consultation and allowing us to participate in patient's care. Plan of care discussed with attending Dr. Mcclelland, right of way appraiser Leandra Moss, DO PGY-1 Internal Medicine Attending Provider Attestation/Addendum I have personally seen and examined the patient separately on the above date of service and discussed the plan of care with the resident. I reviewed the resident Dr.Emily Moss consultation progress note and agree with the resident findings and plan in the note above and have also edited the documentation to reflect my findings and plan. Ernie Mcclelland M.D. Interventional Cardiology
[2025-08-07] MEDS: POTASSIUM CHLORIDE 10% 20 MEQ/15 ML UDC 40 MEQ PO (12:44)
--- NOTE | 2025-08-07 13:39 | PD.RESPRO ---
Documentation for date of: 08/07/25 Subjective Subjective Interval history: Mr. King is a 65-year-old male with past medical history of heart failure with reduced ejection fraction, EF 20-25% 03/2025, combined systolic and diastolic heart failure, mild to moderate AV stenosis, benign prostate hypertrophy, ?Cirrhosis, hepatitis C infection, infrarenal abdominal aortic aneurysm, peripheral arterial disease status post iliac stent (on asa and plavix), hyperlipidemia and former cocaine use and chronic smoker with 30 pack years who presented to [facility] emergency department with a chief complaint of bilateral lower extremity edema up to scrotum, admitted for acute congestive heart failure exacerbation and PA 08/07/2025 patient seen and examined while in telemetry. Patient states that he continues to have shortness of breath and speaks in short abbreviated sentences. His edema is still significant scrotal edema notably better compared to time of admission. Urine output 4800 cc in the past 24 hours plan to continue on 2 mg IV Bumex daily restarted home Entresto and atorvastatin 80, patient on 1500 cc fluid restriction. Creatinine 1.3 from 1.6. Patient reports desire to go to SNF in [place] where his mom lives, patient has difficulty ambulating and caring for himself while in assisted living facility in [place]. Exam Vital Signs Temp Pulse Resp BP Pulse Ox O2 Del Method 96.9 F 82 14 128/90 H 96 Room Air 08/07/25 12:00 08/07/25 12:00 08/07/25 12:00 08/07/25 12:00 08/07/25 12:08/07/25 12:00 Narrative Exam GENERAL: no acute distress (c/o shortness of breath and winded with talking), AAO x3, sitting at 45 degrees in bed HEENT: Head AT/ NC. Mucous membranes moist. PERRL. poor dentition NECK: Supple, no lymphadenopathy, no carotid bruits. CARDIOVASCULAR: RRR. Normal S1/S2, systolic murmor, 3+ pitting edema of bilateral LEs up to the scrotum , RESPIRATORY:expiratory wheezing and some coarse crackles in lower bases. GASTROINTESTINAL: obese, Abdomen soft, non tender no palpable masses. Bowel sounds present : sanders catheter in place, burried penis, and severe scrotal edema (improved from yesterday) MUSCULOSKELETAL:? No cyanosis or edema, no visible joint swelling. NEUROLOGICAL: CN II-XII grossly intact. No focal deficits. deminished sensation of BL feet, weak pedal pulses. PSYCHIATRIC: Awake and alert, not agitated, normal mood and affect.(tearful?) SKIN: ahsan stasis, L 2nd toe amputation, cool to touch Objective Labs 08/08/25 05:20 08/08/25 05:20 Labs: Laboratory Results - last 24 hr 08/07/25 05:29 WBC 7.8 RBC 4.11 L Hgb 11.9 L Hct 38.9 L MCV 95 MCH 29.0 MCHC 30.6 L RDW Std Deviation 54.1 H Plt Count 177 Neut % (Auto) 77 Lymph % (Auto) 11 [place] % (Auto) 8 Eos % (Auto) 3 Baso % (Auto) 1 Neut # (Auto) 5.9 Lymph # (Auto) 0.8 L [place] # (Auto) 0.7 Eos # (Auto) 0.2 Baso # (Auto) 0.1 Immature Gran # (Auto) 0.04 H Absolute Nucleated RBC 0.00 Immature Gran % 1 H Nucleated RBC % 0 Sodium 144 Potassium 3.5 D Chloride 101 Carbon Dioxide 31.3 H Anion Gap 12 BUN 20 Creatinine 1.3 Estim Creat Clear Calc 78.5 eGFR > 60 BUN/Creatinine Ratio 15 Glucose 94 Calculated Osmolality 289 Calcium 9.1 Corrected Calcium 9.4 Phosphorus 4.1 Magnesium 2.1 Total Bilirubin 1.1 AST 52 H ALT 20 Alkaline Phosphatase 101 D Total Protein 6.5 Albumin 3.6 Globulin 2.9 Albumin/Globulin Ratio 1.2 Quality Measures Quality Measures VTE prophylaxis Assessment & Plan Assessment Current Active Medications: Generic Name Dose Route Start Last Admin Trade Name Freq PRN Reason Stop Dose Admin Acetaminophen 650 mg 08/06/25 15:21 Acetaminophen 325 Mg Tablet PO 09/05/25 15:20 Q6H PRN PAIN SCALE 1-3 (mild Amiodarone HCl 200 mg 08/06/25 11:00 08/07/25 08:59 Amiodarone Hcl 200 Mg Tablet PO 09/05/25 10:59 200 mg BID CHYNA Administration Aspirin 81 mg 08/07/25 09:00 08/07/25 08:59 Aspirin Ec 81 Mg Tabec PO 09/06/25 08:59 81 mg QDAY CHYNA Administration Atorvastatin Calcium 80 mg 08/07/25 21:00 Atorvastatin Calcium 20 Mg Tablet PO 09/06/25 20:59 QPM CHYNA Bumetanide 2 mg 08/07/25 09:00 08/07/25 08:58 Bumetanide Inj 0.25 Mg/Ml Vial 4 Ml IVP 09/06/25 08:59 2 mg QDAY CHYNA Administration Clopidogrel Bisulfate 75 mg 08/07/25 09:00 08/07/25 08:59 Clopidogrel Bisulfate 75 Mg Tablet PO 09/06/25 08:59 75 mg QDAY CHYNA Administration Heparin Sodium (Porcine) 5,000 unit 08/06/25 21:00 08/07/25 08:58 Heparin Sod Inj 5000 Unit/Ml Vial SC 08/20/25 20:59 5,000 unit Q12HR CHYNA Administration Lactulose 20 gm 08/07/25 09:00 08/07/25 08:59 Lactulose Syrup 20 Gm/30 Ml Udc PO 09/06/25 08:59 20 gm QDAY CHYNA Administration Protocol Ondansetron HCl 4 mg 08/06/25 15:21 Ondansetron Inj 2 Mg/Ml Inj 2 Ml IVP 09/05/25 15:20 Q6H PRN NAUSEA OR VOMITING Protocol Oseltamivir Phosphate 75 mg 08/06/25 21:00 08/07/25 08:59 Oseltamivir 75 Mg Capsule PO 08/13/25 20:59 75 mg BID CHYNA Administration Pantoprazole Sodium 40 mg 08/07/25 09:00 08/07/25 08:59 Pantoprazole 40 Mg Tablet PO 09/06/25 08:59 40 mg QDAY CHYNA Administration Sacubitril/Valsartan 1 tab 08/07/25 09:00 08/07/25 08:59 Sacubitril 24 Mg/Valsartan 26 Mg Tablet PO 09/06/25 08:59 1 tab BID CHYNA Administration Tamsulosin HCl 0.4 mg 08/07/25 09:00 08/07/25 08:59 Tamsulosin Hcl 0.4 Mg Capsule PO 09/06/25 08:59 0.4 mg QDAY CHYNA Administration Plan Mr. King is a 65-year-old male with past medical history of heart failure with reduced ejection fraction, EF 20-25% 03/2025, combined systolic and diastolic heart failure, mild to moderate AV stenosis, benign prostate hypertrophy, ?Cirrhosis, hepatitis C infection, infrarenal abdominal aortic aneurysm, peripheral arterial disease status post iliac stent (on asa and plavix), hyperlipidemia and former cocaine use and chronic smoker with 30 pack years who presented to [facility] emergency department with a chief complaint of bilateral lower extremity edema up to scrotum, admitted for acute congestive heart failure exacerbation and PA. continues with diuresis and PA resolving. Acute Congestive Heart Failure Exacerbation #HFrEF, EF 20-25% #Combined systolic and diastolic heart failure #h/o V-tach Last Echo 03/2025 EF 20-25 , systolic and diastolic hf, mild to mod av stenosis Volume Overload, BNP >3200, severe edema to the scrotum, and crackles on auscultation bilaterally. 230 Dry weight (pt states that he now weighs about 275) On exam: scrotal edema is improved today, BLE 3+ edema, - cont pulse ox placed - Bumetanide 2mg IV QD goal of net 2-3L negative over 24h - Hold beta-blockers during decompensation - Amiodorone 200 mg BID - Low salt diet - Fluid restriction 1500cc - daily weight: 270-->268 - net output: 4800 (goal > 150cc/hr) - On GDMT outpatient, follows up with funeral arrangement director Dr. Ernie Mcclelland cont hold spirinolactone and metoprolol. f/u outpatient for echo, possible need for ICD #prerenal PA- improving Cr: 1.6--> 1.3 Ddx: Consider pre vs intra vs post renal etiologies Dx - BUN/Cr ratio:13 , which is <20, so suspect prerenal in setting of CHF exacerbation and low intravascular volume. - Daily CMP Tx - Avoid nephrotoxic medications - strict i and o - continue diuresis #Infrarenal abdominal aortic aneurysm, 3.3 cm- stable #Peripheral arterial disease #Gait instability #S/p Iliac Stent #Narrowing of left common iliac artery. poor pulses - consult physical therapy: pt expresses desire to go to rehab fascility in [place] where his mother is. - cont ASA and plavix COPD, not on home O2 -breathing treatments as needed -cont pulse ox -cont diuresing Cirrhosis? hepatitis C infecion BPH - cont tamsulosin 0.4 mg qd HLD - atorvastatin 80 qhs Chronic smoking history, 30 pack years Not an active smoker currently, history of 30 pack years, no lung nodules/lymphadenopathy noted on CTA - Outpatient screening as appropriate Dispo: admit for chf exacerbation, undergoing diuresis, found to have PA improving, pt states that he wants to go to a rehab facility in [place], where his mom lives Diet: cardiac with mechanical alteration , fluid restriction 1500cc Bowel Reg: lactulose 20 qd VTE ppx: heparin 5000 bid GI ppx: protonix 40 po qd Code status: FULL Plan discussed with Dr. Lissette Dooley MD PGY1 Attending Provider Attestation/Addendum I have examined the patient, reviewed labs and imaging findings, discussed the case with the resident(s), and reviewed entered orders. I agree with the plan of care as outlined in this note, with these additional summaries/recommendations: Patient is a 65-year-old male with a medical history of HFrEF (20-25%), hx of vtach, PAD, liver disease, primary hypertension, BPH, vitamin D deficiency, and former smoker who presents to [facility] emergency department on 08/06/2025 with chief complaint of shortness of breath and lower extremity swelling. Patient seen at bedside. No acute overnight events. Patient reports some improvement in shortness of breath although not resolved. Patient diagnosed with acute CHF exacerbation. He reports he has gained approximately 20 pounds over the last couple months. Trigger for decompensated CHF is likely related to diet. Patient reports compliance with medicines but states he mainly eats TV dinners. Patient lives at home and has a family member who intermittently helps him. Previous echocardiogram shows ejection fraction of 20 to 25%. Patient endorses dyspnea, orthopnea, and weight gain. 3+ bilateral lower extremity edema up into the abdomen. BNP >3280. Continue preload reduction with IV Bumex and fluid restriction. Patient now net -4.8L. Sanders catheter in place and monitor urinary output closely. Strict I's and O's. Cardiac diet. Resume VELMA/ARB for afterload reduction. Continue home Coreg for neurohormonal blockade. Patient will need 6 months of maximum goal-directed medical therapy to qualify for ICD placement. Consult patient's funeral arrangement director, recommendations appreciated. Patient has history of nonsustained V. tach and continue home amiodarone. Continue aspirin and Plavix for history of PAD. Imaging study also showed cirrhosis although no evidence of synthetic liver dysfunction and we will monitor for now. Follow-up outpatient. Minimal PA present most likely secondary to cardiorenal syndrome. On admission creatinine 1.6 and BUN 20. PA now resolved. Continue diuresis and monitor for improvement. If worsens we will consider nephrology consultation. Outpatient follow-up for hepatitis C. Patient updated on the plan and in agreement. All questions answered to satisfaction. Please see residents note for additional details and management. Dr. Lissette MD
--- NOTE | 2025-08-07 15:00 | PC.SS ---
Rounding note: d/c 2 days.
--- NOTE | 2025-08-07 16:00 | PC.SS ---
SAFE DEPOSIT ATTENDANT was notified by bedside nurse that patient would like resources on assisted living and requested information on [facility]. [facility] office closed on Friday. SAFE DEPOSIT ATTENDANT met with patient at bedside, patient inquired about assisted living, SAFE DEPOSIT ATTENDANT informed patient that [facility] office is closed on . SAFE DEPOSIT ATTENDANT informed patient that there may be out of pocket cost, patient would like to know more information, SS will follow up and provide more information once [facility] opens during the week. Patient stated he needs more support at home.
[2025-08-07] MEDS: ATORVASTATIN CALCIUM 20 MG TABLET 80 MG PO (20:15)
[2025-08-08] VITALS (16 sets, daily range): BP systolic 99–116; BP diastolic 63–80; PULSE 77–108; RESP 12–96; TEMP 35.7–37; O2SAT 95–98; BMI 35.4
[2025-08-08 05:38] LABS: Basophils # (Auto) 0.1 Thou/mm3 (0.0-0.2); Basophils % (Auto) 1 % (0-2.5); Eosinophils # (Auto) 0.2 Thou/mm3 (0.0-0.5); Eosinophils % (Auto) 3 % (0-10); Hematocrit 37.1 % (41.0-53.0); Hemoglobin 11.5 g/dL (13.5-16.0); Immature Granulocytes Auto 0.04 Thou/mm3 (0.00-0.00); Lymphocytes # (Auto) 0.8 Thou/mm3 (1.0-4.8); Lymphocytes % (Auto) 11 % (10-50); Mean Corpuscular HGB Conc 31.0 g/dl (31.0-37.0); Mean Corpuscular Hemoglobin 28.8 pg (25.0-35.0); Mean Corpuscular Volume 93 fL (80-100); Monocytes # (Auto) 0.6 Thou/mm3 (0.0-0.8); Monocytes % (Auto) 8 % (0-12); Neutrophils # (Auto) 6.0 Thou/mm3 (1.8-7.7); Neutrophils % (Auto) 78 % (37-80); Nucleated Red Blood Cell # 0.00 Thou/mm3 (0.00-0.00); Nucleated Red Blood Cell % 0 /100 WBC (0); Platelet Count 186 Thou/mm3 (140-440); RDW Standard Deviation 52.4 fL (35.1-43.9); Red Blood Count 3.99 Miln/mm3 (4.50-5.90); White Blood Count 7.7 Thou/mm3 (3.8-10.6)
[2025-08-08 06:14] LABS: Alanine Aminotransferase 28 U/L (10-49); Albumin, Serum 3.1 gm/dL (3.4-4.8); Albumin/Globulin Ratio 1.3 (1.2-2.2); Alkaline Phosphatase 93 U/L (46-116); Anion Gap 9 (7-16); Aspartate Amino Transferase 41 U/L (0-34); BUN/Creatinine Ratio 14 Ratio (12-20); Bilirubin,Total 1.2 mg/dL (0.3-1.2); Blood Urea Nitrogen 18 mg/dL (9-23); Calcium 8.4 mg/dL (8.3-10.6); Calcium (Corrected) 9.1 mg/dL (8.5-10.1); Carbon Dioxide 32.5 mMol/L (20.0-31.0); Chloride 102 mMol/L (98-107); Creatinine (Component) 1.3 mg/dL (0.6-1.3); Estimated Creatinine Clearance 78.5 mL/min (>60); Globulin 2.4 gm/dL (2.3-3.5); Glucose 102 mg/dL (74-106); Magnesium 2.0 mg/dL (1.6-2.6); Osmolality,Calculated 286 (275-295); Phosphorous 4.0 mg/dL (2.4-5.1); Potassium 4.0 mMol/L (3.4-5.1); Sodium 143 mMol/L (136-145); Total Protein 5.5 gm/dL (5.7-8.2); eGFR > 60 See Note
[2025-08-08] MEDS: BUMETANIDE INJ 0.25 MG/ML VIAL 4 ML 2 MG IVP (08:31)
[2025-08-08] MEDS: ASPIRIN EC 81 MG TABEC PO (08:32)
[2025-08-08] MEDS: CLOPIDOGREL BISULFATE 75 MG TABLET PO (08:32)
[2025-08-08] MEDS: OSELTAMIVIR 75 MG CAPSULE PO ×2 (08:32→20:42)
[2025-08-08] MEDS: AMIODARONE HCL 200 MG TABLET PO ×2 (08:32→20:42)
[2025-08-08] MEDS: HEPARIN SOD INJ 5000 UNIT/ML VIAL SC ×2 (08:32→20:42)
[2025-08-08] MEDS: PANTOPRAZOLE 40 MG TABLET PO (08:32)
[2025-08-08] MEDS: TAMSULOSIN HCL 0.4 MG CAPSULE PO (08:32)
--- NOTE | 2025-08-08 13:39 | PD.RESPRO ---
Documentation for date of: 08/08/25 Subjective Subjective Interval history: Mr. King is a 65-year-old male with past medical history of heart failure with reduced ejection fraction, EF 20-25% 03/2025, combined systolic and diastolic heart failure, mild to moderate AV stenosis, benign prostate hypertrophy, ?Cirrhosis, hepatitis C infection, infrarenal abdominal aortic aneurysm, peripheral arterial disease status post iliac stent (on asa and plavix), hyperlipidemia and former cocaine use and chronic smoker with 30 pack years who presented to [facility] emergency department with a chief complaint of bilateral lower extremity edema up to scrotum, admitted for acute congestive heart failure exacerbation and PA 08/07/2025 patient seen and examined while in telemetry. Patient states that he continues to have shortness of breath and speaks in short abbreviated sentences. His edema is still significant scrotal edema notably better compared to time of admission. Urine output 4800 cc in the past 24 hours plan to continue on 2 mg IV Bumex daily restarted home Entresto and atorvastatin 80, patient on 1500 cc fluid restriction. Creatinine 1.3 from 1.6. Patient reports desire to go to SNF in [place] where his mom lives, patient has difficulty ambulating and caring for himself while in assisted living facility in [place]. 08/08/2025: Patient seen and examined while in telemetry. Today patient acknowledges that his exacerbations are likely secondary to his TV dinner intake with high sodium content. Patient continues to have shortness of breath and speak in short abbreviated sentences. His edema remains 3+ and scrotal edema seems to be stable from yesterday. Urine output is 4400 cc in the past 24 hours. Plan is to continue on 2 mg IV Bumex daily. On Entresto and atorvastatin, holding home beta-daysi in setting of acute exacerbation continues on 1500 cc fluid restriction creatinine stable at 1.3. Patient has Medi-Obi so question whether he can qualify for SNF placement at the same facility that that his mom lives in in [place]. Exam Vital Signs Temp Pulse Resp BP Pulse Ox O2 Del Method O2 Flow Rate 96.5 F L 97 12 110/80 98 Nasal Cannula 1 08/08/25 12:08/08/25 12:08/08/25 12:08/08/25 12:08/08/25 12:08/08/25 12:00 08/08/25 12:00 Narrative Exam GENERAL: no acute distress (c/o shortness of breath and winded with talking), AAO x3, sitting at 45 degrees in bed HEENT: Head AT/ NC. Mucous membranes moist. PERRL. poor dentition NECK: Supple, no lymphadenopathy, no carotid bruits. CARDIOVASCULAR: RRR. Normal S1/S2, systolic murmor, 3+ pitting edema of bilateral LEs up to the scrotum , RESPIRATORY:expiratory wheezing and some coarse crackles in lower bases. GASTROINTESTINAL: obese, Abdomen soft, non tender no palpable masses. Bowel sounds present : sanders catheter in place, burried penis, and severe scrotal edema stable compared to yesterday MUSCULOSKELETAL:? No cyanosis or edema, no visible joint swelling. NEUROLOGICAL: CN II-XII grossly intact. No focal deficits. diminished sensation of BL feet, weak pedal pulses. PSYCHIATRIC: Awake and alert, not agitated, normal mood and affect.(tearful?) SKIN: ahsan stasis, L 2nd toe amputation, cool to touch Objective Labs 08/08/25 05:20 08/08/25 05:20 Labs: Laboratory Results - last 24 hr 08/08/25 05:20 WBC 7.7 RBC 3.99 L Hgb 11.5 L Hct 37.1 L MCV 93 MCH 28.8 MCHC 31.0 RDW Std Deviation 52.4 H Plt Count 186 Neut % (Auto) 78 Lymph % (Auto) 11 [place] % (Auto) 8 Eos % (Auto) 3 Baso % (Auto) 1 Neut # (Auto) 6.0 Lymph # (Auto) 0.8 L [place] # (Auto) 0.6 Eos # (Auto) 0.2 Baso # (Auto) 0.1 Immature Gran # (Auto) 0.04 H Absolute Nucleated RBC 0.00 Immature Gran % 1 H Nucleated RBC % 0 Sodium 143 Potassium 4.0 D Chloride 102 Carbon Dioxide 32.5 H Anion Gap 9 BUN 18 Creatinine 1.3 Estim Creat Clear Calc 78.5 eGFR > 60 BUN/Creatinine Ratio 14 Glucose 102 Calculated Osmolality 286 Calcium 8.4 Corrected Calcium 9.1 Phosphorus 4.0 Magnesium 2.0 Total Bilirubin 1.2 AST 41 H ALT 28 Alkaline Phosphatase 93 Total Protein 5.5 L Albumin 3.1 L D Globulin 2.4 Albumin/Globulin Ratio 1.3 Quality Measures Quality Measures VTE prophylaxis Assessment & Plan Assessment Current Active Medications: Generic Name Dose Route Start Last Admin Trade Name Freq PRN Reason Stop Dose Admin Acetaminophen 650 mg 08/06/25 15:21 Acetaminophen 325 Mg Tablet PO 09/05/25 15:20 Q6H PRN PAIN SCALE 1-3 (mild Amiodarone HCl 200 mg 08/06/25 11:00 08/08/25 08:32 Amiodarone Hcl 200 Mg Tablet PO 09/05/25 10:59 200 mg BID CHYNA Administration Aspirin 81 mg 08/07/25 09:00 08/08/25 08:32 Aspirin Ec 81 Mg Tabec PO 09/06/25 08:59 81 mg QDAY CHYNA Administration Atorvastatin Calcium 80 mg 08/07/25 21:00 08/07/25 20:15 Atorvastatin Calcium 20 Mg Tablet PO 09/06/25 20:59 80 mg QPM CHYNA Administration Bumetanide 2 mg 08/07/25 09:00 08/08/25 08:31 Bumetanide Inj 0.25 Mg/Ml Vial 4 Ml IVP 09/06/25 08:59 2 mg QDAY CHYNA Administration Clopidogrel Bisulfate 75 mg 08/07/25 09:00 08/08/25 08:32 Clopidogrel Bisulfate 75 Mg Tablet PO 09/06/25 08:59 75 mg QDAY CHYNA Administration Docusate Sodium 100 mg 08/08/25 09:00 08/08/25 09:56 Docusate Sod 100 Mg Capsule PO 09/07/25 08:59 Not Given BID CHYNA Protocol Heparin Sodium (Porcine) 5,000 unit 08/06/25 21:00 08/08/25 08:32 Heparin Sod Inj 5000 Unit/Ml Vial SC 08/20/25 20:59 5,000 unit Q12HR CHYNA Administration Lactulose 20 gm 08/07/25 09:00 08/08/25 09:56 Lactulose Syrup 20 Gm/30 Ml Udc PO 09/06/25 08:59 Not Given QDAY CHYNA Protocol Ondansetron HCl 4 mg 08/06/25 15:21 Ondansetron Inj 2 Mg/Ml Inj 2 Ml IVP 09/05/25 15:20 Q6H PRN NAUSEA OR VOMITING Protocol Oseltamivir Phosphate 75 mg 08/06/25 21:00 08/08/25 08:32 Oseltamivir 75 Mg Capsule PO 08/13/25 20:59 75 mg BID CHYNA Administration Pantoprazole Sodium 40 mg 08/07/25 09:00 08/08/25 08:32 Pantoprazole 40 Mg Tablet PO 09/06/25 08:59 40 mg QDAY CHYNA Administration Sacubitril/Valsartan 1 tab 08/07/25 09:00 08/08/25 08:32 Sacubitril 24 Mg/Valsartan 26 Mg Tablet PO 09/06/25 08:59 1 tab BID CHYNA Administration Sennosides 1 tab 08/08/25 09:00 08/08/25 09:56 Senna Tablet PO 09/07/25 08:59 Not Given QDAY CHYNA Protocol Tamsulosin HCl 0.4 mg 08/07/25 09:00 08/08/25 08:32 Tamsulosin Hcl 0.4 Mg Capsule PO 09/06/25 08:59 0.4 mg QDAY CHYNA Administration Plan Mr. King is a 65-year-old male with past medical history of heart failure with reduced ejection fraction, EF 20-25% 03/2025, combined systolic and diastolic heart failure, mild to moderate AV stenosis, benign prostate hypertrophy, ?Cirrhosis, hepatitis C infection, infrarenal abdominal aortic aneurysm, peripheral arterial disease status post iliac stent (on asa and plavix), hyperlipidemia and former cocaine use and chronic smoker with 30 pack years who presented to [facility] emergency department with a chief complaint of bilateral lower extremity edema up to scrotum, admitted for acute congestive heart failure exacerbation and PA. continues with diuresis and PA resolving. Acute Congestive Heart Failure Exacerbation #HFrEF, EF 20-25% #Combined systolic and diastolic heart failure #h/o V-tach Suspect that patient's recurrent acute CHF exacerbations are secondary to high sodium diet given his limited ability to ambulate he relies heavily on TV dinners. He is compliant with his diuretic medications but continues to have significant lower extremity edema. Last Echo 03/2025 EF 20-25 , systolic and diastolic hf, mild to mod av stenosis Volume Overload, BNP >3200, severe edema to the scrotum, and crackles on auscultation bilaterally. 230 Dry weight (pt states that he now weighs about 275) On exam: Bilateral lower extremity 3+ up to scrotum - Bumetanide 2mg IV QD goal of net 2-3L negative over 24h - Hold beta-blockers during decompensation - Amiodorone 200 mg BID - Low salt diet - Fluid restriction 1500cc - daily weight: 270-->268 - net output: 440 cc (goal > 150cc/hr) - On GDMT outpatient, follows up with director nursing service Dr. Ernie Mcclelland cont hold spirinolactone and metoprolol. f/u outpatient for echo, possible need for ICD #prerenal PA-resolved #? Mild CKD,? Cardiorenal Cr: 1.6--> 1.3 (? At his baseline) Dx - Daily CMP Tx - Avoid nephrotoxic medications - strict i and o - continue diuresis - Recommend outpatient follow-up with editor index #Influenza On Tamiflu 75 mg twice daily, (08/06- #Infrarenal abdominal aortic aneurysm, 3.3 cm- stable #Peripheral arterial disease #Gait instability #S/p Iliac Stent #Narrowing of left common iliac artery. poor pulses - consult physical therapy: pt expresses desire to go to rehab fascility in [place] where his mother is. - cont ASA and plavix COPD, not on home O2 -breathing treatments as needed -cont pulse ox -cont diuresing Cirrhosis? hepatitis C infecion BPH - cont tamsulosin 0.4 mg qd HLD - atorvastatin 80 qhs Chronic smoking history, 30 pack years Not an active smoker currently, history of 30 pack years, no lung nodules/lymphadenopathy noted on CTA - Outpatient screening as appropriate Dispo: Continues with IV diuresis with 2 mg IV Bumex, net negative 8 to 10 L, bilateral lower extremities with severe 3+ edema up to scrotum, consider possible discharge tomorrow pending cardiology recommendations Diet: cardiac with mechanical alteration , fluid restriction 1500cc Bowel Reg: lactulose 20 qd VTE ppx: heparin 5000 bid GI ppx: protonix 40 po qd Code status: FULL Plan discussed with Dr. Lissette Dooley MD PGY1 Attending Provider Attestation/Addendum I have examined the patient, reviewed labs and imaging findings, discussed the case with the resident(s), and reviewed entered orders. I agree with the plan of care as outlined in this note, with these additional summaries/recommendations: Patient is a 65-year-old male with a medical history of HFrEF (20-25%), hx of vtach, PAD, liver disease, primary hypertension, BPH, vitamin D deficiency, and former smoker who presents to [facility] emergency department on 08/06/2025 with chief complaint of shortness of breath and lower extremity swelling. Patient seen at bedside. No acute overnight events. Patient reports some improvement in shortness of breath and bilateral lower extremity pitting edema. Patient diagnosed with acute CHF exacerbation. Trigger for decompensated CHF likely related to diet. Patient reports compliance with home medicines but states he mainly eats TV dinners. Patient lives at home and has a family member who intermittently helps him. Patient counseled on cardiac diet and avoiding excessive salt. Previous echocardiogram shows ejection fraction of 20 to 25%. Patient endorses dyspnea, orthopnea, and weight gain. 3+ bilateral lower extremity edema up into the abdomen on admission with scrotal swelling. BNP >3280. Continue preload reduction with IV Bumex and fluid restriction. Patient now net negative >8L. Sanders catheter in place and monitor urinary output closely. Strict I's and O's. Cardiac diet. Continue entresto for afterload reduction. Continue home Coreg for neurohormonal blockade. Patient will need 6 months of maximum goal-directed medical therapy to qualify for ICD placement. In house cardiology following, recommendations appreciated. Patient has history of nonsustained V. tach and continue home amiodarone. Continue aspirin and Plavix for history of PAD. Imaging study also showed cirrhosis although no evidence of synthetic liver dysfunction and we will monitor for now. Follow-up outpatient. Minimal PA present most likely secondary to cardiorenal syndrome which now resolved. Pending physical therapy consult. Outpatient follow-up for hepatitis C. Patient updated on the plan and in agreement. All questions answered to satisfaction. Please see residents note for additional details and management. Dr. Lissette MD
--- NOTE | 2025-08-08 14:22 | ESPR_ITS ---
Documentation for date of: 08/08/25 Subjective Subjective Interval history: Patient seen and examined at bedside. Telemetry reviewed and no arrhythmias noted. HR min 60s and max 100 sinus. 24h net negative 3.5L. Patient is feeling much better today. Reports that breathing is much improved, however leg and scrotal swelling continue to persist. Has not worked with physical therapy or has been walked yet. Denies current chest pain, palpitations, lightheadedness, dizzinesss, orthopnea, or PND. K 4.0, Mg 2.0, bicarb uptrending 32.5, Cr still mildly elevated 1.3. Continue IV Bumex 2 mg QD, will likely hold tomorrow AM dose of Bumex if bicarb is still elevated and will give acetazolamide instead. Ordered echocardiogram. Exam Vital Signs Temp Pulse Resp BP Pulse Ox O2 Del Method O2 Flow Rate 96.5 F L 97 12 110/80 98 Nasal Cannula 1 08/08/25 12:00 08/08/25 12:08/08/25 12:08/08/25 12:08/08/25 12:08/08/25 12:08/08/25 12:00 Narrative Exam GENERAL: AOx3, lying comfortably in bed HEENT: NC/AT, mucous membranes moist, bilateral sclera anicteric CARDIOVASCULAR: regular rate and rhythm, S1/S2 present, 4/6 harsh systolic murmur PULMONARY: diminished breath sounds L>R, no crackles ABDOMINAL: soft, non-tender, distended and edematous, no rebound/guarding, bowel sounds present EXTREMITIES: BLE 4+ pitting edema up to scrotum including scrotum, decreased sensation of bilateral dorsum of feet, diminished 1+ pedal pulses SKIN: venous stasis dermatitis, flaky bilateral feet, 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 NEURO: CN II-XII grossly intact, no focal deficits, alert, following commands Objective Labs 08/09/25 04:42 08/09/25 04:42 Labs: Laboratory Results - last 24 hr 08/08/25 05:20 WBC 7.7 RBC 3.99 L Hgb 11.5 L Hct 37.1 L MCV 93 MCH 28.8 MCHC 31.0 RDW Std Deviation 52.4 H Plt Count 186 Neut % (Auto) 78 Lymph % (Auto) 11 [place] % (Auto) 8 Eos % (Auto) 3 Baso % (Auto) 1 Neut # (Auto) 6.0 Lymph # (Auto) 0.8 L [place] # (Auto) 0.6 Eos # (Auto) 0.2 Baso # (Auto) 0.1 Immature Gran # (Auto) 0.04 H Absolute Nucleated RBC 0.00 Immature Gran % 1 H Nucleated RBC % 0 Sodium 143 Potassium 4.0 D Chloride 102 Carbon Dioxide 32.5 H Anion Gap 9 BUN 18 Creatinine 1.3 Estim Creat Clear Calc 78.5 eGFR > 60 BUN/Creatinine Ratio 14 Glucose 102 Calculated Osmolality 286 Calcium 8.4 Corrected Calcium 9.1 Phosphorus 4.0 Magnesium 2.0 Total Bilirubin 1.2 AST 41 H ALT 28 Alkaline Phosphatase 93 Total Protein 5.5 L Albumin 3.1 L D Globulin 2.4 Albumin/Globulin Ratio 1.3 Quality Measures Quality Measures VTE prophylaxis Assessment & Plan Assessment Current Active Medications: Generic Name Dose Route Start Last Admin Trade Name Freq PRN Reason Stop Dose Admin Acetaminophen 650 mg 08/06/25 15:21 Acetaminophen 325 Mg Tablet PO 09/05/25 15:20 Q6H PRN PAIN SCALE 1-3 (mild Amiodarone HCl 200 mg 08/06/25 11:00 08/08/25 08:32 Amiodarone Hcl 200 Mg Tablet PO 09/05/25 10:59 200 mg BID CHYNA Administration Aspirin 81 mg 08/07/25 09:00 08/08/25 08:32 Aspirin Ec 81 Mg Tabec PO 09/06/25 08:59 81 mg QDAY CHYNA Administration Atorvastatin Calcium 80 mg 08/07/25 21:00 08/07/25 20:15 Atorvastatin Calcium 20 Mg Tablet PO 09/06/25 20:59 80 mg QPM CHYNA Administration Bumetanide 2 mg 08/07/25 09:00 08/08/25 08:31 Bumetanide Inj 0.25 Mg/Ml Vial 4 Ml IVP 09/06/25 08:59 2 mg QDAY CHYNA Administration Clopidogrel Bisulfate 75 mg 08/07/25 09:00 08/08/25 08:32 Clopidogrel Bisulfate 75 Mg Tablet PO 09/06/25 08:59 75 mg QDAY CHYNA Administration Docusate Sodium 100 mg 08/08/25 09:00 08/08/25 09:56 Docusate Sod 100 Mg Capsule PO 09/07/25 08:59 Not Given BID CHYNA Protocol Heparin Sodium (Porcine) 5,000 unit 08/06/25 21:00 08/08/25 08:32 Heparin Sod Inj 5000 Unit/Ml Vial SC 08/20/25 20:59 5,000 unit Q12HR CHYNA Administration Lactulose 20 gm 08/07/25 09:00 08/08/25 09:56 Lactulose Syrup 20 Gm/30 Ml Udc PO 09/06/25 08:59 Not Given QDAY [facility] Protocol Ondansetron HCl 4 mg 08/06/25 15:21 Ondansetron Inj 2 Mg/Ml Inj 2 Ml IVP 09/05/25 15:20 Q6H PRN NAUSEA OR VOMITING Protocol Oseltamivir Phosphate 75 mg 08/06/25 21:00 08/08/25 08:32 Oseltamivir 75 Mg Capsule PO 08/13/25 20:59 75 mg BID CHYNA Administration Pantoprazole Sodium 40 mg 08/07/25 09:00 08/08/25 08:32 Pantoprazole 40 Mg Tablet PO 09/06/25 08:59 40 mg QDAY CHYNA Administration Sacubitril/Valsartan 1 tab 08/07/25 09:00 08/08/25 08:32 Sacubitril 24 Mg/Valsartan 26 Mg Tablet PO 09/06/25 08:59 1 tab BID CHYNA Administration Sennosides 1 tab 08/08/25 09:00 08/08/25 09:56 Senna Tablet PO 09/07/25 08:59 Not Given QDAY [facility] Protocol Tamsulosin HCl 0.4 mg 08/07/25 09:00 08/08/25 08:32 Tamsulosin Hcl 0.4 Mg Capsule PO 09/06/25 08:59 0.4 mg QDAY CHYNA Administration Plan Wood King 65M pmhx significant for HFrEF (20-25% 03/2025), low-flow moderate AV stenosis, HTN, HLD, infrarenal abdominal aortic aneurysm, PAD s/p iliac stent, former cocaine use, chronic smoker, BPH, cirrhosis and Hepatitis C infection who presents with worsening BLE edema, admitted for acute on chronic heart failure. Cardiology consulted for further management. #Acute on chronic HFrEF, EF 20-25% 03/2025, NYHA Class III #PA 2/2 cardiorenal syndrome #Combined systolic and diastolic heart failure #Low Flow Moderate AV stenosis Patient presented with worsening bilateral lower extremity edema, recently saw manager of compliance and Bumex was increased to 2 mg daily from 1 mg daily. However swelling persisted and worsened with associated worsening dyspnea on exertion and SOB while speaking prompting current hospitalization. Admission BNP >3820 with negative troponins. At home, patient is on GDMT of metoprolol XL 25 mg QD, Entresto 1 tablet BID, spironolactone 25 mg QD. EKG showed sinus rhythm HR 90 with QTC 474 with left axis deviation. Cr on admission 1.6 with baseline of 0.8-1 likely 2/2 to cardiorenal syndrome with acute exacerbation and fluid overload. 03/2025 Echo showed dilated cardiomyopathy, dilated LV, severe systolic expression, severe global hypokinesis, estimated EF 20 to 30%, grade 2 diastolic dysfunction, mild RV dilatation, mild RV systolic dysfunction, mild to moderate AV stenosis, low gradient due to low EF, mean PG 12-14 mmHg but JE around 1.1 to 1.2 cm? which indicates at least moderate stenosis, mild MAC, mild MR and TR, trace AI, mildly dilated LA volume at 40.5 mL/m?. Plan: - Continue IV Bumex 2 mg QD, goal of net 2-3L negative over 24h, CTM for contraction alkalosis and electrolyte abnormalities - If contraction alkalosis continues to worsen, will likely hold Bumex tomorrow morning and give acetazolamide 500 mg x1 - Resume Entresto 1 tab BID - Hold metoprolol and spironolactone iso soft BP and for anticipation of further diuresis - Strict I&Os, daily weights - Low sodium diet, 1.5L fluid restriction - F/u echocardiogram - CTM renal panel - Keep K>4 and Mg>2 at all times #Infrarenal abdominal aortic aneurysm, 3.3 cm #PAD s/p bilateral iliac artery stents #Significant narrowing of L common iliac artery stent CTAP on 06/24/2025 shows infrarenal abdominal aorta 3.3 cm small blood and 11 mm off the lateral margin of the infrarenal aorta. With bilateral iliac artery stents, significant narrowing of the left common iliac artery stent and healthy calcification of the common femoral arteries. On exam pedal pulses 1+ with diminished light touch sensation on dorsal aspect of bilateral feet. MONICO (05/01/2025): Right ankle/Brachial index 1.1 and Left ankle/Brachial index 1.1 Plan: - Continue Plavix 75 mg QD and ASA 81 mg QD - Continue to follow up outpatient for further management #History of NSVT On previous admission on 06/24/2025, patient was noted to have 1 episode of NSVT on 06/30/2025 and was started on amiodarone drip and later transition to oral amiodarone 200 mg twice daily. Telemetry reviewed and no arrhythmias noted. Plan: - Continue PO amiodarone 200 mg QD - Telemetry for cardiac monitoring #HTN #HLD On admission, BP 129/87 HR 94. Lipid panel cholesterol 98, triglycerides 54, LDL 50, HDL 37. Plan: - Continue home atorvastatin 80 mg Qhs - Continue Entresto 1 tab BID - Hold metoprolol and spironolactone as above, resume as BP tolerates #Chronic smoking history, 30 pack years #Cirrhosis #Benign prostate hypertrophy #Normocytic normochromic anemia #Hepatitis C #COPD Plan: - Management per primary team Thank you for the consultation and allowing us to participate in patient's care. Plan of care discussed with attending Dr. Mcclelland, abstract clerk Leandra Moss, DO PGY-1 Internal Medicine Attending Provider Attestation/Addendum I have personally seen and examined the patient separately on the above date of service and discussed the plan of care with the resident. I reviewed the resident Dr. Leandra Moss consultation progress note and agree with the resident findings and plan in the note above and have also edited the documentation to reflect my findings and plan. Ernie Mcclelland M.D. Interventional Cardiology
--- NOTE | 2025-08-08 14:29 | ECHO_ITS ---
Transthoracic Echo Report Ht (in): 73 Wt (lb): 261 Exam Location: Echo Lab Status: Inpatient Mixing Tumbler Operator: Denisha Brown Indications: Procedure Performed: BP: 110 / 80 HR: 75 MEASUREMENTS (Male / Female) Normal Values 2D ECHO LV Diastolic Diameter PLAX 6.4 cm 4.2 - 5.9 / 3.9 - 5.3 cm LV Systolic Diameter PLAX 6.0 cm IVS Diastolic Thickness 1.0 cm 0.6 - 1.0 / 0.6 - 0.9 cm LVPW Diastolic Thickness 1.6 cm 0.6 - 1.0 / 0.6 - 0.9 cm LV Relative Wall Thickness 0.4 LVOT Diameter 2.1 cm LV Ejection Fraction MOD BP 26.5 % >= 55 % LV Cardiac Index MOD BP 2064.5 cm?/min?m? LV Ejection Fraction MOD 4C 24.9 % LV Cardiac Index MOD 4C 2094.4 cm?/min?m? LV Ejection Fraction 4C AL 24.9 % LV Cardiac Index 4C AL 2204.8 cm?/min?m? LV Ejection Fraction MOD 2C 22.6 % LV Cardiac Index MOD 2C 1496.0 cm?/min?m? LV Ejection Fraction 2C AL 26.2 % LV Cardiac Index 2C AL 1823.0 cm?/min?m? LA Volume Index 52.2 cm?/m? 16 - 28 cm?/m? Ascending Aorta Diameter 3.5 cm M-MODE AV Cusp Separation MM 1.3 cm DOPPLER AV Peak Velocity 220.0 cm/s AV Peak Gradient 19.4 mmHg AV Mean Gradient 11.0 mmHg AV Velocity Time Integral 40.4 cm LVOT Peak Velocity 62.1 cm/s LVOT Peak Gradient 1.5 mmHg LVOT Velocity Time Integral 11.0 cm LVOT Cardiac Index 1140.0 cm?/min?m? AV Area Cont Eq vti 0.9 cm? AV Area Cont Eq pk 1.0 cm? MV Peak Velocity 133.0 cm/s MV Peak Gradient 7.1 mmHg MV Mean Velocity 75.7 cm/s MV Mean Gradient 3.0 mmHg MV Area PHT 6.1 cm? Mitral E Point Velocity 133.0 cm/s Mitral A Point Velocity 67.9 cm/s Mitral E to A Ratio 2.0 LV E' Lateral Velocity 8.8 cm/s Mitral E to LV E' Lateral Ratio 15.1 LV E' Septal Velocity 3.6 cm/s Mitral E to LV E' Septal Ratio 37.0 TR Peak Velocity 303.7 cm/s TR Peak Gradient 36.9 mmHg PV Peak Velocity 106.0 cm/s PV Peak Gradient 4.5 mmHg FINDINGS Left Ventricle The left ventricular cavity size is moderately increased. There is global left ventricular hypokinesis. Mild LVH. Grade 2 diastolic dysfunction. The ejection fraction is visually estimated at 25-30%. Right Ventricle The right ventricle is normal in size and systolic function. The right ventricular size is moderately increased. Left Atrium Moderately incrased left atrial volume 52.2mL/m2 Right Atrium The right atrium is normal by two-dimensional imaging, color flow and Doppler imaging with no structural abnormalities, no thrombus formation present. Atrial Septum The interatrial septum appears normal with no evidence of a shunt. Aorta The aorta is normal by two-dimensional, color flow and Doppler interrogation. Mitral Valve Mild mitral annular calcfication. Mild mitral regurgitation. Aortic Valve Moderate thickening of the aortic valve leaflets. Trace to mild aortic valve regurgitation. Mild aortic valve stenosis. Tricuspid Valve There is mild tricuspid valve regurgitation. Pulmonic Valve Mild pulmonic valve regurgitation. Vessels The pulmonary artery appears normal. The inferior vena cava pulmonary and hepatic veins appear normal. Pericardium The pericardium is normal by two-dimensional imaging. There is no significant pericardial effusion. CONCLUSIONS Indication: CHFexaerbation Dilated Cardiomyopathy, Dilated LV, Severey systolic dysfunction. Severe global hypokinesis. Estimated EF 25-30%. Grade II diastolic dysfunction. Mild RV dilatation. Mild RV systolic dysfunction. Mil to Moderate AV stenosis. Low gradient due to low EF. Mean PG 12-14 mmhg but JE around 1.1-1.2 sq cm which indicates at least moderate stenosis. Mild MAC, Mild MR,Miild TR, Trace AI and PI Mildly dilated LA volume 52.2mL/m2 No significant chnage from previous echo 03/15/25 Ernie Mcclelland (Electronically Signed) Final Date: 10 August 2025 03:41
--- NOTE | 2025-08-08 15:33 | PC.SS ---
Addendum entered by Kina De Leon 08/08/25 16:43: SS follow up note; Lurdes from [facility] informed SS she is unable to submit for auth at the time and is needing PT evaluation notes. SS will send PT notes once available. Addendum entered by Kina De Leon 08/08/25 16:41: SS follow up note; SS followed up with patient in regards to SNF choices. Patient informed SS he would like to discharge to [facility]. SS contacted Lurdes from [facility] and she informed SS she would submit for auth today. SS will stand by for further needs. Original Note: SS follow up note; SS was informed during rounding that patient was needing SNF. SS sent SNF inquiry through [employer] platform. SS will meet with patient to discuss SNF choices.
--- NOTE | 2025-08-08 17:51 | PC.PT ---
Patient is safe to ambulate to the bathroom with a FWW and 1 staff assist. RN made aware.
[2025-08-08] MEDS: ATORVASTATIN CALCIUM 20 MG TABLET 80 MG PO (20:42)
[2025-08-09] VITALS (11 sets, daily range): BP systolic 102–107; BP diastolic 61–76; PULSE 75–101; RESP 17–98; TEMP 36.1–36.4; O2SAT 95–98; BMI 34.4
[2025-08-09 06:07] LABS: Basophils # (Auto) 0.1 Thou/mm3 (0.0-0.2); Basophils % (Auto) 1 % (0-2.5); Eosinophils # (Auto) 0.3 Thou/mm3 (0.0-0.5); Eosinophils % (Auto) 3 % (0-10); Hematocrit 39.1 % (41.0-53.0); Hemoglobin 12.1 g/dL (13.5-16.0); Immature Granulocytes Auto 0.04 Thou/mm3 (0.00-0.00); Lymphocytes # (Auto) 1.0 Thou/mm3 (1.0-4.8); Lymphocytes % (Auto) 12 % (10-50); Mean Corpuscular HGB Conc 30.9 g/dl (31.0-37.0); Mean Corpuscular Hemoglobin 28.9 pg (25.0-35.0); Mean Corpuscular Volume 93 fL (80-100); Monocytes # (Auto) 0.8 Thou/mm3 (0.0-0.8); Monocytes % (Auto) 9 % (0-12); Neutrophils # (Auto) 6.0 Thou/mm3 (1.8-7.7); Neutrophils % (Auto) 75 % (37-80); Nucleated Red Blood Cell # 0.00 Thou/mm3 (0.00-0.00); Nucleated Red Blood Cell % 0 /100 WBC (0); Platelet Count 197 Thou/mm3 (140-440); RDW Standard Deviation 52.2 fL (35.1-43.9); Red Blood Count 4.19 Miln/mm3 (4.50-5.90); White Blood Count 8.1 Thou/mm3 (3.8-10.6)
[2025-08-09 06:36] LABS: Alanine Aminotransferase 25 U/L (10-49); Albumin, Serum 3.1 gm/dL (3.4-4.8); Albumin/Globulin Ratio 1.2 (1.2-2.2); Alkaline Phosphatase 98 U/L (46-116); Anion Gap 11 (7-16); Aspartate Amino Transferase 42 U/L (0-34); BUN/Creatinine Ratio 17 Ratio (12-20); Bilirubin,Total 1.2 mg/dL (0.3-1.2); Blood Urea Nitrogen 19 mg/dL (9-23); Calcium 8.4 mg/dL (8.3-10.6); Calcium (Corrected) 9.1 mg/dL (8.5-10.1); Carbon Dioxide 31.2 mMol/L (20.0-31.0); Chloride 101 mMol/L (98-107); Creatinine (Component) 1.1 mg/dL (0.6-1.3); Estimated Creatinine Clearance 91.5 mL/min (>60); Globulin 2.6 gm/dL (2.3-3.5); Glucose 99 mg/dL (74-106); Magnesium 2.1 mg/dL (1.6-2.6); Osmolality,Calculated 287 (275-295); Phosphorous 3.9 mg/dL (2.4-5.1); Potassium 4.1 mMol/L (3.4-5.1); Sodium 143 mMol/L (136-145); Total Protein 5.7 gm/dL (5.7-8.2); eGFR > 60 See Note
[2025-08-09] MEDS: AMIODARONE HCL 200 MG TABLET PO (08:24)
[2025-08-09] MEDS: CLOPIDOGREL BISULFATE 75 MG TABLET PO (08:25)
[2025-08-09] MEDS: TAMSULOSIN HCL 0.4 MG CAPSULE PO (08:25)
[2025-08-09] MEDS: BUMETANIDE INJ 0.25 MG/ML VIAL 4 ML 2 MG IVP (08:25)
[2025-08-09] MEDS: PANTOPRAZOLE 40 MG TABLET PO (08:25)
[2025-08-09] MEDS: ASPIRIN EC 81 MG TABEC PO (08:25)
--- NOTE | 2025-08-09 08:25 | PC.PT ---
SS follow up note; SS sent PT notes and PASSR via [employer] to [facility] for auth. Lurdes informed SS that she will submit for auth this morning.
[2025-08-09] MEDS: HEPARIN SOD INJ 5000 UNIT/ML VIAL SC ×2 (08:26→21:59)
[2025-08-09] MEDS: OSELTAMIVIR 75 MG CAPSULE PO ×2 (08:37→21:59)
--- NOTE | 2025-08-09 08:51 | PD.RESPRO ---
Documentation for date of: 08/09/25 Subjective Subjective Interval history: Patient seen and examined at bedside. Telemetry reviewed no arrhythmias noted. Vitals reviewed and stable. Net output 24h negative 2.4. Patient still feeling short of breath during conversation and feels overall sore especially in his legs. He is able to sleep without difficulty and is currently saturating 97% on 1 L of O2. Patient denies chest pain, pressure, lightheadedness, dizziness or palpitations. K 4.1 bicarb improved 31.2, Cr improved 1.1 back to baseline, Mg 2.1. Exam Vital Signs Temp Pulse Resp BP Pulse Ox O2 Del Method O2 Flow Rate 97.6 F 80 17 107/72 97 Nasal Cannula 1 08/09/25 03:59 08/09/25 08:25 08/09/25 06:58 08/09/25 08:25 08/09/25 03:59 08/09/25 03:59 08/09/25 06:58 Narrative Exam GENERAL: AOx3, lying comfortably in bed HEENT: NC/AT, mucous membranes moist, bilateral sclera anicteric CARDIOVASCULAR: regular rate and rhythm, S1/S2 present, 4/6 harsh systolic murmur PULMONARY: R lung CTA, L base diminished breath sounds, no crackles ABDOMINAL: soft, non-tender, distended and edematous, no rebound/guarding, bowel sounds present EXTREMITIES: BLE 4+ pitting edema up to scrotum including scrotum, decreased sensation of bilateral dorsum of feet, diminished 1+ pedal pulses SKIN: venous stasis dermatitis, flaky bilateral feet, 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 NEURO: CN II-XII grossly intact, no focal deficits, alert, following commands Objective Labs 08/09/25 04:42 08/09/25 04:42 Labs: Laboratory Results - last 24 hr 08/09/25 04:42 WBC 8.1 RBC 4.19 L Hgb 12.1 L Hct 39.1 L MCV 93 MCH 28.9 MCHC 30.9 L RDW Std Deviation 52.2 H Plt Count 197 Neut % (Auto) 75 Lymph % (Auto) 12 [place] % (Auto) 9 Eos % (Auto) 3 Baso % (Auto) 1 Neut # (Auto) 6.0 Lymph # (Auto) 1.0 [place] # (Auto) 0.8 Eos # (Auto) 0.3 Baso # (Auto) 0.1 Immature Gran # (Auto) 0.04 H Absolute Nucleated RBC 0.00 Immature Gran % 1 H Nucleated RBC % 0 Sodium 143 Potassium 4.1 Chloride 101 Carbon Dioxide 31.2 H Anion Gap 11 BUN 19 Creatinine 1.1 Estim Creat Clear Calc 91.5 eGFR > 60 BUN/Creatinine Ratio 17 Glucose 99 Calculated Osmolality 287 Calcium 8.4 Corrected Calcium 9.1 Phosphorus 3.9 Magnesium 2.1 Total Bilirubin 1.2 AST 42 H ALT 25 Alkaline Phosphatase 98 Total Protein 5.7 Albumin 3.1 L Globulin 2.6 Albumin/Globulin Ratio 1.2 Quality Measures Quality Measures VTE prophylaxis Assessment & Plan Assessment Current Active Medications: Generic Name Dose Route Start Last Admin Trade Name Freq PRN Reason Stop Dose Admin Acetaminophen 650 mg 08/06/25 15:21 Acetaminophen 325 Mg Tablet PO 09/05/25 15:20 Q6H PRN PAIN SCALE 1-3 (mild Amiodarone HCl 200 mg 08/06/25 11:00 08/09/25 08:24 Amiodarone Hcl 200 Mg Tablet PO 09/05/25 10:59 200 mg BID CHYNA Administration Aspirin 81 mg 08/07/25 09:00 08/09/25 08:25 Aspirin Ec 81 Mg Tabec PO 09/06/25 08:59 81 mg QDAY CHYNA Administration Atorvastatin Calcium 80 mg 08/07/25 21:00 08/08/25 20:42 Atorvastatin Calcium 20 Mg Tablet PO 09/06/25 20:59 80 mg QPM CHYNA Administration Bumetanide 2 mg 08/07/25 09:00 08/09/25 08:25 Bumetanide Inj 0.25 Mg/Ml Vial 4 Ml IVP 09/06/25 08:59 2 mg QDAY CHYNA Administration Clopidogrel Bisulfate 75 mg 08/07/25 09:00 08/09/25 08:25 Clopidogrel Bisulfate 75 Mg Tablet PO 09/06/25 08:59 75 mg QDAY CHYNA Administration Docusate Sodium 100 mg 08/08/25 09:00 08/09/25 08:27 Docusate Sod 100 Mg Capsule PO 09/07/25 08:59 Not Given BID [facility] Protocol Heparin Sodium (Porcine) 5,000 unit 08/06/25 21:00 08/09/25 08:26 Heparin Sod Inj 5000 Unit/Ml Vial SC 08/20/25 20:59 5,000 unit Q12HR CHYNA Administration Lactulose 20 gm 08/07/25 09:00 08/09/25 08:27 Lactulose Syrup 20 Gm/30 Ml Udc PO 09/06/25 08:59 Not Given QDAY [facility] Protocol Ondansetron HCl 4 mg 08/06/25 15:21 Ondansetron Inj 2 Mg/Ml Inj 2 Ml IVP 09/05/25 15:20 Q6H PRN NAUSEA OR VOMITING Protocol Oseltamivir Phosphate 75 mg 08/06/25 21:00 08/09/25 08:37 Oseltamivir 75 Mg Capsule PO 08/13/25 20:59 75 mg BID CHYNA Administration Pantoprazole Sodium 40 mg 08/07/25 09:00 08/09/25 08:25 Pantoprazole 40 Mg Tablet PO 09/06/25 08:59 40 mg QDAY CHYNA Administration Sacubitril/Valsartan 1 tab 08/07/25 09:00 08/09/25 08:25 Sacubitril 24 Mg/Valsartan 26 Mg Tablet PO 09/06/25 08:59 1 tab BID CHYNA Administration Sennosides 1 tab 08/08/25 09:00 08/09/25 08:27 Senna Tablet PO 09/07/25 08:59 Not Given QDAY [facility] Protocol Tamsulosin HCl 0.4 mg 08/07/25 09:00 08/09/25 08:25 Tamsulosin Hcl 0.4 Mg Capsule PO 09/06/25 08:59 0.4 mg QDAY CHYNA Administration Plan [place] 65M pmhx significant for HFrEF (20-25% 03/2025), low-flow moderate AV stenosis, HTN, HLD, infrarenal abdominal aortic aneurysm, PAD s/p iliac stent, former cocaine use, chronic smoker, BPH, cirrhosis and Hepatitis C infection who presents with worsening BLE edema, admitted for acute on chronic heart failure. Cardiology consulted for further management. #Acute on chronic HFrEF, EF 20-25% 03/2025, NYHA Class III #PA 2/2 cardiorenal syndrome #Combined systolic and diastolic heart failure #Low Flow Moderate AV stenosis Patient presented with worsening bilateral lower extremity edema, recently saw director foundation and Bumex was increased to 2 mg daily from 1 mg daily. However swelling persisted and worsened with associated worsening dyspnea on exertion and SOB while speaking prompting current hospitalization. Admission BNP >3820 with negative troponins. At home, patient is on GDMT of metoprolol XL 25 mg QD, Entresto 1 tablet BID, spironolactone 25 mg QD. EKG showed sinus rhythm HR 90 with QTC 474 with left axis deviation. Cr on admission 1.6 with baseline of 0.8-1 likely 2/2 to cardiorenal syndrome with acute exacerbation and fluid overload. 03/2025 Echo showed dilated cardiomyopathy, dilated LV, severe systolic expression, severe global hypokinesis, estimated EF 20 to 30%, grade 2 diastolic dysfunction, mild RV dilatation, mild RV systolic dysfunction, mild to moderate AV stenosis, low gradient due to low EF, mean PG 12-14 mmHg but JE around 1.1 to 1.2 cm? which indicates at least moderate stenosis, mild MAC, mild MR and TR, trace AI, mildly dilated LA volume at 40.5 mL/m?. Plan: - Continue IV Bumex 2 mg QD, goal of net 2-3L negative over 24h, CTM for contraction alkalosis and electrolyte abnormalities - If contraction alkalosis continues to worsen, hold Bumex and give acetazolamide 500 mg x1 - Continue Entresto 1 tab BID - Hold metoprolol and spironolactone iso soft BP and for anticipation of further diuresis - F/u echocardiogram - Strict I&Os, daily weights - Low sodium diet, 1.5L fluid restriction - CTM renal panel - Keep K>4 and Mg>2 at all times #Infrarenal abdominal aortic aneurysm, 3.3 cm #PAD s/p bilateral iliac artery stents #Significant narrowing of L common iliac artery stent CTAP on 06/24/2025 shows infrarenal abdominal aorta 3.3 cm small blood and 11 mm off the lateral margin of the infrarenal aorta. With bilateral iliac artery stents, significant narrowing of the left common iliac artery stent and healthy calcification of the common femoral arteries. On exam pedal pulses 1+ with diminished light touch sensation on dorsal aspect of bilateral feet. MONICO (05/01/2025): Right ankle/Brachial index 1.1 and Left ankle/Brachial index 1.1 Plan: - Continue Plavix 75 mg QD and ASA 81 mg QD - Continue to follow up outpatient for further management #History of NSVT On previous admission on 06/24/2025, patient was noted to have 1 episode of NSVT on 06/30/2025 and was started on amiodarone drip and later transition to oral amiodarone 200 mg twice daily. Telemetry reviewed and no arrhythmias noted. Plan: - Continue PO amiodarone 200 mg QD - Telemetry for cardiac monitoring #HTN #HLD On admission, BP 129/87 HR 94. Lipid panel cholesterol 98, triglycerides 54, LDL 50, HDL 37. Plan: - Continue home atorvastatin 80 mg Qhs - Continue Entresto 1 tab BID - Hold metoprolol and spironolactone as above, resume as BP tolerates #Chronic smoking history, 30 pack years #Cirrhosis #Benign prostate hypertrophy #Normocytic normochromic anemia #Hepatitis C #COPD Plan: - Management per primary team Thank you for the consultation and allowing us to participate in patient's care. Plan of care discussed with attending Dr. Mcclelland, senior commissary agent Leandra Moss, DO PGY-1 Internal Medicine Attending Provider Attestation/Addendum I have personally seen and examined the patient separately on the above date of service and discussed the plan of care with the resident. I reviewed the resident Dr. Leandra Moss consultation progress note and agree with the resident findings and plan in the note above and have also edited the documentation to reflect my findings and plan. Ernie Mcclelland M.D. Interventional Cardiology
--- NOTE | 2025-08-09 09:23 | XR_ITS ---
Examination: AP chest single view Technique one AP portable upright chest single view Date and time: August 09, 2025, 0938 hours, comparison May 06, 2025 INDICATIONS: Worsening shortness of breath today. FINDINGS: Mild CHF. Mild enlargement cardiac contour, prominent vascular congestion and perihilar basilar edema. Consider superimposed pneumonia left base Moderate left pleural fluid IMPRESSION: Mild CHF Consider superimposed pneumonia left base.
--- NOTE | 2025-08-09 14:48 | ESPR_ITS ---
Documentation for date of: 08/09/25 Subjective Subjective Interval history: Patient examined at bedside. No events overnight. Denies any chest pain or shortness of breath. Vitals are stable telemetry reviewed with no arrhythmias noted. Urine output past 24 hours approximately 2.5 L. Notable weight loss of 4 kg since admission. Physical exam still noted for +2 lower extremity pitting edema, expiratory wheezing on lung auscultation. Saturating adequately on room air. PA resolved with creatinine 1.1. Cardiology consulted--continue IV Bumex 2 mg daily, Entresto 1 tab twice daily, resume metoprolol and spironolactone if BP and heart rate permissible. Echo is pending. Continue Plavix aspirin in setting of PAD. Exam Vital Signs Temp Pulse Resp BP Pulse Ox O2 Del Method O2 Flow Rate 97.0 F 87 18 102/76 97 Room Air 1 08/09/25 12:00 08/09/25 12:08/09/25 12:08/09/25 12:08/09/25 12:08/09/25 12:08/09/25 06:58 Narrative Exam General: Middle age malek, minor distress, cooperative, sitting comforatbly in bed HEENT: NCAT, No JVD noted. Mucosa moist. Pupils are equal and reactive to light bilaterally Cardiovascular: Normal S1 and S2. Regular rate and rhythm. 4/6 harsh systolic murmur Respiratory: epiratory wheezing, no crackles Abdomen: Soft, nontender, not distended, normal bowel sounds. 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 Able to move all 4 extremities. +2 pitting edema, improved from scrotum Neuro: Alert and oriented x3. No focal neuro deficits. Psych: Normal affect and mood Objective Labs 08/09/25 04:42 08/09/25 04:42 Labs: Laboratory Results - last 24 hr 08/09/25 04:42 WBC 8.1 RBC 4.19 L Hgb 12.1 L Hct 39.1 L MCV 93 MCH 28.9 MCHC 30.9 L RDW Std Deviation 52.2 H Plt Count 197 Neut % (Auto) 75 Lymph % (Auto) 12 [place] % (Auto) 9 Eos % (Auto) 3 Baso % (Auto) 1 Neut # (Auto) 6.0 Lymph # (Auto) 1.0 [place] # (Auto) 0.8 Eos # (Auto) 0.3 Baso # (Auto) 0.1 Immature Gran # (Auto) 0.04 H Absolute Nucleated RBC 0.00 Immature Gran % 1 H Nucleated RBC % 0 Sodium 143 Potassium 4.1 Chloride 101 Carbon Dioxide 31.2 H Anion Gap 11 BUN 19 Creatinine 1.1 Estim Creat Clear Calc 91.5 eGFR > 60 BUN/Creatinine Ratio 17 Glucose 99 Calculated Osmolality 287 Calcium 8.4 Corrected Calcium 9.1 Phosphorus 3.9 Magnesium 2.1 Total Bilirubin 1.2 AST 42 H ALT 25 Alkaline Phosphatase 98 Total Protein 5.7 Albumin 3.1 L Globulin 2.6 Albumin/Globulin Ratio 1.2 Quality Measures Quality Measures VTE prophylaxis Assessment & Plan Assessment Current Active Medications: Generic Name Dose Route Start Last Admin Trade Name Freq PRN Reason Stop Dose Admin Acetaminophen 650 mg 08/06/25 15:21 Acetaminophen 325 Mg Tablet PO 09/05/25 15:20 Q6H PRN PAIN SCALE 1-3 (mild Amiodarone HCl 200 mg 08/06/25 11:00 08/09/25 08:24 Amiodarone Hcl 200 Mg Tablet PO 09/05/25 10:59 200 mg BID CHYNA Administration Aspirin 81 mg 08/07/25 09:00 08/09/25 08:25 Aspirin Ec 81 Mg Tabec PO 09/06/25 08:59 81 mg QDAY CHYNA Administration Atorvastatin Calcium 80 mg 08/07/25 21:00 08/08/25 20:42 Atorvastatin Calcium 20 Mg Tablet PO 09/06/25 20:59 80 mg QPM CHYNA Administration Bumetanide 2 mg 08/07/25 09:00 08/09/25 08:25 Bumetanide Inj 0.25 Mg/Ml Vial 4 Ml IVP 09/06/25 08:59 2 mg QDAY CHYNA Administration Clopidogrel Bisulfate 75 mg 08/07/25 09:00 08/09/25 08:25 Clopidogrel Bisulfate 75 Mg Tablet PO 09/06/25 08:59 75 mg QDAY CHYNA Administration Docusate Sodium 100 mg 08/08/25 09:00 08/09/25 08:27 Docusate Sod 100 Mg Capsule PO 09/07/25 08:59 Not Given BID [facility] Protocol Heparin Sodium (Porcine) 5,000 unit 08/06/25 21:00 08/09/25 08:26 Heparin Sod Inj 5000 Unit/Ml Vial SC 08/20/25 20:59 5,000 unit Q12HR CHYNA Administration Lactulose 20 gm 08/07/25 09:00 08/09/25 08:27 Lactulose Syrup 20 Gm/30 Ml Udc PO 09/06/25 08:59 Not Given QDAY CHYNA Protocol Ondansetron HCl 4 mg 08/06/25 15:21 Ondansetron Inj 2 Mg/Ml Inj 2 Ml IVP 09/05/25 15:20 Q6H PRN NAUSEA OR VOMITING Protocol Oseltamivir Phosphate 75 mg 08/06/25 21:00 08/09/25 08:37 Oseltamivir 75 Mg Capsule PO 08/13/25 20:59 75 mg BID CHYNA Administration Pantoprazole Sodium 40 mg 08/07/25 09:00 08/09/25 08:25 Pantoprazole 40 Mg Tablet PO 09/06/25 08:59 40 mg QDAY CHYNA Administration Sacubitril/Valsartan 1 tab 08/07/25 09:00 08/09/25 08:25 Sacubitril 24 Mg/Valsartan 26 Mg Tablet PO 09/06/25 08:59 1 tab BID CHYNA Administration Sennosides 1 tab 08/08/25 09:00 08/09/25 08:27 Senna Tablet PO 09/07/25 08:59 Not Given QDAY CHYNA Protocol Tamsulosin HCl 0.4 mg 08/07/25 09:00 08/09/25 08:25 Tamsulosin Hcl 0.4 Mg Capsule PO 09/06/25 08:59 0.4 mg QDAY CHYNA Administration Plan Mr. King is a 65-year-old male with past medical history of heart failure with reduced ejection fraction, EF 20-25% 03/2025, combined systolic and diastolic heart failure, mild to moderate AV stenosis, benign prostate hypertrophy, ?Cirrhosis, hepatitis C infection, infrarenal abdominal aortic aneurysm, peripheral arterial disease status post iliac stent (on asa and plavix), hyperlipidemia and former cocaine use and chronic smoker with 30 pack years who presented to [facility] emergency department with a chief complaint of bilateral lower extremity edema up to scrotum, admitted for acute congestive heart failure exacerbation and PA. Continue with diuresis. #Acute CHF exacerbation with #HFrEF, EF 20-25% #NYHA class III Most likely that patient's recurrent acute CHF exacerbations are secondary to high sodium diet given his limited ability to ambulate he relies heavily on TV dinners. He is compliant with his diuretic medications but continues to have significant lower extremity edema. Patient follow with cardiology Dr. Mcclelland with last visit being earlier this month. Patient stated that recent dose change was made to Bumex from 1 mg p.o. to 2 mg p.o. daily. But since past couple of days he has been endorsing worsening shortness of breath difficulty walking short distances around his apartment. Complains of worsening swelling, coughing, shortness of breath. Last Echo 03/2025 EF 20-25 , systolic and diastolic hf, mild to mod av stenosis Volume Overload, BNP >3200, severe edema to the scrotum, and crackles on auscultation bilaterally. 230 Dry weight (pt states that he now weighs about 275) At home, patient is on GDMT of metoprolol XL 25 mg QD, Entresto 1 tablet BID, spironolactone 25 mg QD. EKG showed sinus rhythm HR 90 with QTC 474 with left axis deviation. - Continue IV Bumex 2 mg QD, goal of net 2-3L negative over 24h, CTM for contraction alkalosis and electrolyte abnormalities - If contraction alkalosis continues to worsen, hold Bumex and give acetazolamide 500 mg x1 - Continue Entresto 1 tab BID - Hold metoprolol and spironolactone iso soft BP and for anticipation of further diuresis - echocardiogram pending - Strict I&Os, daily weights - Low sodium diet, 1.5L fluid restriction - CTM renal panel - Keep K>4 and Mg>2 at all times #PA 2/2 cardiorenal syndrome Cr on admission 1.6 with baseline of 0.8-1 likely 2/2 to cardiorenal syndrome with acute exacerbation and fluid overload. -maintenance fluids -avoid nephrotoxic agents -daily CMP -anticipate improvement with continued diuresis #Infrarenal abdominal aortic aneurysm, 3.3 cm #PAD s/p bilateral iliac artery stents #Significant narrowing of L common iliac artery stent CTAP on 06/24/2025 shows infrarenal abdominal aorta 3.3 cm small blood and 11 mm off the lateral margin of the infrarenal aorta. With bilateral iliac artery stents, significant narrowing of the left common iliac artery stent and healthy calcification of the common femoral arteries. On exam pedal pulses 1+ with diminished light touch sensation on dorsal aspect of bilateral feet. MONICO (05/01/2025): Right ankle/Brachial index 1.1 and Left ankle/Brachial index 1.1 - Continue Plavix 75 mg QD and ASA 81 mg QD - Continue to follow up outpatient for further management #Influenza positive On Tamiflu 75 mg twice daily, (08/06- #History of NSVT On previous admission on 06/24/2025, patient was noted to have 1 episode of NSVT on 06/30/2025 and was started on amiodarone drip and later transition to oral amiodarone 200 mg twice daily. Telemetry reviewed and no arrhythmias noted. - Continue PO amiodarone 200 mg QD - Telemetry for cardiac monitoring #HTN #HLD On admission, BP 129/87 HR 94. Lipid panel cholesterol 98, triglycerides 54, LDL 50, HDL 37. - Continue home atorvastatin 80 mg Qhs - Continue Entresto 1 tab BID - Hold metoprolol and spironolactone as above, resume as BP tolerates #COPD Patient does use oxgyen at home. Denies exacerbation in some time. -breathing treatments as needed -cont pulse ox -cont diuresing BPH - cont tamsulosin 0.4 mg qd HLD - atorvastatin 80 qhs Chronic smoking history, 30 pack years Not an active smoker currently, history of 30 pack years, no lung nodules/lymphadenopathy noted on CTA - Outpatient screening including CT chest, AAA screening >65 Health maintenance: Dispo: tele, actue CHF exacerbation, diureses, PT therapy reccommends SNF FEN: cardic DVT prophylaxis: Subcu heparin CODE STATUS: Full code The patient's management plan was discussed with my attending physician Dr. Sevilla. Yaz Menchaca, PGY-2 Attending Provider Attestation/Addendum I have discussed and was present for the essential components of the history, physical examination, diagnosis, and treatment plan with the resident. I agree with the patient's care as documented by the resident and amended herein by me. Jorge Luis Sevilla DO. Although this document has been carefully reviewed, there may still be some phonetic and other typographical errors. These errors are purely grammatical due to imperfections in the software program and should not be construed in any way to compromise the substance of the patient's medical care during this visit.
--- NOTE | 2025-08-09 15:56 | PC.SS ---
SS follow up note; Auth Pending to [facility]. Patient is on IV ABX, possible discharge 1-2 days.
[2025-08-09] MEDS: ATORVASTATIN CALCIUM 20 MG TABLET 80 MG PO (21:59)
[2025-08-10] VITALS (11 sets, daily range): BP systolic 93–110; BP diastolic 65–76; PULSE 78–102; RESP 16–98; TEMP 36.1–36.6; O2SAT 95–99; BMI 32.4
[2025-08-10 05:52] LABS: Basophils # (Auto) 0.1 Thou/mm3 (0.0-0.2); Basophils % (Auto) 1 % (0-2.5); Eosinophils # (Auto) 0.3 Thou/mm3 (0.0-0.5); Eosinophils % (Auto) 4 % (0-10); Hematocrit 39.3 % (41.0-53.0); Hemoglobin 12.1 g/dL (13.5-16.0); Immature Granulocytes Auto 0.03 Thou/mm3 (0.00-0.00); Lymphocytes # (Auto) 0.9 Thou/mm3 (1.0-4.8); Lymphocytes % (Auto) 13 % (10-50); Mean Corpuscular HGB Conc 30.8 g/dl (31.0-37.0); Mean Corpuscular Hemoglobin 28.5 pg (25.0-35.0); Mean Corpuscular Volume 93 fL (80-100); Monocytes # (Auto) 0.7 Thou/mm3 (0.0-0.8); Monocytes % (Auto) 10 % (0-12); Neutrophils # (Auto) 5.2 Thou/mm3 (1.8-7.7); Neutrophils % (Auto) 73 % (37-80); Nucleated Red Blood Cell # 0.00 Thou/mm3 (0.00-0.00); Nucleated Red Blood Cell % 0 /100 WBC (0); Platelet Count 171 Thou/mm3 (140-440); RDW Standard Deviation 50.7 fL (35.1-43.9); Red Blood Count 4.24 Miln/mm3 (4.50-5.90); White Blood Count 7.1 Thou/mm3 (3.8-10.6)
[2025-08-10 06:36] LABS: Alanine Aminotransferase 26 U/L (10-49); Albumin, Serum 3.3 gm/dL (3.4-4.8); Albumin/Globulin Ratio 1.3 (1.2-2.2); Alkaline Phosphatase 95 U/L (46-116); Anion Gap 10 (7-16); Aspartate Amino Transferase 43 U/L (0-34); BUN/Creatinine Ratio 13 Ratio (12-20); Bilirubin,Total 1.3 mg/dL (0.3-1.2); Blood Urea Nitrogen 14 mg/dL (9-23); Calcium 8.5 mg/dL (8.3-10.6); Calcium (Corrected) 9.1 mg/dL (8.5-10.1); Carbon Dioxide 30.2 mMol/L (20.0-31.0); Chloride 100 mMol/L (98-107); Creatinine (Component) 1.1 mg/dL (0.6-1.3); Estimated Creatinine Clearance 88.7 mL/min (>60); Globulin 2.5 gm/dL (2.3-3.5); Glucose 98 mg/dL (74-106); Magnesium 2.2 mg/dL (1.6-2.6); Osmolality,Calculated 279 (275-295); Phosphorous 4.3 mg/dL (2.4-5.1); Potassium 4.0 mMol/L (3.4-5.1); Sodium 140 mMol/L (136-145); Total Protein 5.8 gm/dL (5.7-8.2); eGFR > 60 See Note
[2025-08-10] MEDS: BUMETANIDE INJ 0.25 MG/ML VIAL 4 ML 2 MG IVP (08:04)
[2025-08-10] MEDS: TAMSULOSIN HCL 0.4 MG CAPSULE PO (08:05)
[2025-08-10] MEDS: AMIODARONE HCL 200 MG TABLET PO (08:05)
[2025-08-10] MEDS: OSELTAMIVIR 75 MG CAPSULE PO ×2 (08:06→21:28)
[2025-08-10] MEDS: CLOPIDOGREL BISULFATE 75 MG TABLET PO (08:06)
[2025-08-10] MEDS: HEPARIN SOD INJ 5000 UNIT/ML VIAL SC ×2 (08:06→21:28)
[2025-08-10] MEDS: PANTOPRAZOLE 40 MG TABLET PO (08:06)
[2025-08-10] MEDS: ASPIRIN EC 81 MG TABEC PO (08:06)
--- NOTE | 2025-08-10 11:33 | PC.SS ---
SS follow up note; SS contacted Lurdes from [facility] to check status on authorization. Lurdes informed SS that she followed up 30 minutes ago and auth was still pending. Lurdes informed SS she would contact [employer]. SS will stand
--- NOTE | 2025-08-10 11:37 | PC.SS ---
SS follow up note; SS contacted Lurdes from [facility] to check status on authorization. Lurdes informed SS that she followed up 30 minutes ago and auth was still pending. Lrudes informed SS she would [facility]. SS will stand by for further needs.
--- NOTE | 2025-08-10 14:33 | PC.SS ---
SS follow up note; Patient is currently receiving diuresis and is anticipated to be discharged within 2 days. Authorization to [facility] is pending at the time.
--- NOTE | 2025-08-10 14:55 | ESPR_ITS ---
<Statement entered by Yaz Menchaca MD - 08/10/25 15:20> Note reviewed, I agree with most of its contents and agree with the patient's care as documented by Dr. Dooley. Patient examined at bedside. No overnight events, remaining in normal sinus rhythm as reviewed on telemetery. He denies any chest pain, SOB, or palpitations. Endorses LE pain most likely related to all the fluid retention that was present. Continue IV Bumex 2 mg daily in setting of acute CHF exacerbation. Urine output in past 24 hrs was ~4L. Weight has dropped from 122 kg to 111 kg. Continuing Entresto 1 tab twice daily, resume metoprolol and spironolactone if BP and heart rate permissible. Low sodium diet, 1.5L fluid restriction, Plavix aspirin in setting of PAD. Authorization to [facility] is pending at the time. The patient's management plan was discussed with my attending physician Dr. Sevilla. Yaz Menchaca, PGY-2 Documentation for date of: 08/10/25 Subjective Subjective Interval history: Mr. King is a 65-year-old male with past medical history of heart failure with reduced ejection fraction, EF 20-25% 03/2025, combined systolic and diastolic heart failure, mild to moderate AV stenosis, benign prostate hypertrophy, ?Cirrhosis, hepatitis C infection, infrarenal abdominal aortic aneurysm, peripheral arterial disease status post iliac stent (on asa and plavix), hyperlipidemia and former cocaine use and chronic smoker with 30 pack years who presented to [facility] emergency department with a chief complaint of bilateral lower extremity edema up to scrotum, admitted for acute congestive heart failure exacerbation and PA 08/07/2025 patient seen and examined while in telemetry. Patient states that he continues to have shortness of breath and speaks in short abbreviated sentences. His edema is still significant scrotal edema notably better compared to time of admission. Urine output 4800 cc in the past 24 hours plan to continue on 2 mg IV Bumex daily restarted home Entresto and atorvastatin 80, patient on 1500 cc fluid restriction. Creatinine 1.3 from 1.6. Patient reports desire to go to SNF in [place] where his mom lives, patient has difficulty ambulating and caring for himself while in assisted living facility in [place]. 08/08/2025: Patient seen and examined while in telemetry. Today patient acknowledges that his exacerbations are likely secondary to his TV dinner intake with high sodium content. Patient continues to have shortness of breath and speak in short abbreviated sentences. His edema remains 3+ and scrotal edema seems to be stable from yesterday. Urine output is 4400 cc in the past 24 hours. Plan is to continue on 2 mg IV Bumex daily. On Entresto and atorvastatin, holding home beta-daysi in setting of acute exacerbation continues on 1500 cc fluid restriction creatinine stable at 1.3. Patient has [employer] so question whether he can qualify for SNF placement at the same facility that that his mom lives in in [place]. 08/10/2025: Patient seen and examined while in telemetry. He continues on IV diuresis with 2 mg IV Bumex, blood pressures have been soft hold parameters for Entresto systolic below 90, net -5200 cc today continues on 1500 fluid restriction weight today is 111 kg from 117 kg yesterday. Continues to have 2- 3+ lower extremity edema, scrotal edema is resolved Exam Vital Signs Temp Pulse Resp BP Pulse Ox O2 Del Method O2 Flow Rate 97.9 F 78 17 94/71 95 Nasal Cannula 2 08/10/25 12:00 08/10/25 12:00 08/10/25 12:08/10/25 12:08/10/25 12:08/10/25 12:08/10/25 12:00 Narrative Exam GENERAL: no acute distress, AAO x3, sitting at 45 degrees in bed HEENT: Head AT/ NC. Mucous membranes moist. PERRL. poor dentition NECK: Supple, no lymphadenopathy, no carotid bruits. CARDIOVASCULAR: RRR. Normal S1/S2, systolic murmor, 3+ pitting edema of bilateral LEs , scrotal edema resolved RESPIRATORY:expiratory wheezing and crackles improved from prior exam, GASTROINTESTINAL: obese, Abdomen soft, non tender no palpable masses. Bowel sounds present : sanders catheter in place, burried penis, MUSCULOSKELETAL:? No cyanosis or edema, no visible joint swelling. NEUROLOGICAL: CN II-XII grossly intact. No focal deficits. diminished sensation of BL feet, weak pedal pulses. PSYCHIATRIC: Awake and alert, not agitated, normal mood and affect.(tearful?) SKIN: ahsan stasis, L 2nd toe amputation, cool to touch Objective Labs 08/11/25 04:55 08/11/25 04:55 Labs: Laboratory Results - last 24 hr 08/10/25 04:41 WBC 7.1 RBC 4.24 L Hgb 12.1 L Hct 39.3 L MCV 93 MCH 28.5 MCHC 30.8 L RDW Std Deviation 50.7 H Plt Count 171 Neut % (Auto) 73 Lymph % (Auto) 13 [place] % (Auto) 10 Eos % (Auto) 4 Baso % (Auto) 1 Neut # (Auto) 5.2 Lymph # (Auto) 0.9 L [place] # (Auto) 0.7 Eos # (Auto) 0.3 Baso # (Auto) 0.1 Immature Gran # (Auto) 0.03 H Absolute Nucleated RBC 0.00 Immature Gran % 0 Nucleated RBC % 0 Sodium 140 Potassium 4.0 Chloride 100 Carbon Dioxide 30.2 Anion Gap 10 BUN 14 Creatinine 1.1 Estim Creat Clear Calc 88.7 eGFR > 60 BUN/Creatinine Ratio 13 Glucose 98 Calculated Osmolality 279 Calcium 8.5 Corrected Calcium 9.1 Phosphorus 4.3 Magnesium 2.2 Total Bilirubin 1.3 H AST 43 H ALT 26 Alkaline Phosphatase 95 Total Protein 5.8 Albumin 3.3 L Globulin 2.5 Albumin/Globulin Ratio 1.3 Quality Measures Quality Measures VTE prophylaxis Assessment & Plan Assessment Current Active Medications: Generic Name Dose Route Start Last Admin Trade Name Freq PRN Reason Stop Dose Admin Acetaminophen 650 mg 08/06/25 15:21 Acetaminophen 325 Mg Tablet PO 09/05/25 15:20 Q6H PRN PAIN SCALE 1-3 (mild Amiodarone HCl 200 mg 08/10/25 09:00 08/10/25 08:05 Amiodarone Hcl 200 Mg Tablet PO 09/09/25 08:59 200 mg DAILY CHYNA Administration Aspirin 81 mg 08/07/25 09:00 08/10/25 08:06 Aspirin Ec 81 Mg Tabec PO 09/06/25 08:59 81 mg QDAY CHYNA Administration Atorvastatin Calcium 80 mg 08/07/25 21:00 08/09/25 21:59 Atorvastatin Calcium 20 Mg Tablet PO 09/06/25 20:59 80 mg QPM CHYNA Administration Bumetanide 2 mg 08/07/25 09:00 08/10/25 08:04 Bumetanide Inj 0.25 Mg/Ml Vial 4 Ml IVP 09/06/25 08:59 2 mg QDAY CHYNA Administration Clopidogrel Bisulfate 75 mg 08/07/25 09:00 08/10/25 08:06 Clopidogrel Bisulfate 75 Mg Tablet PO 09/06/25 08:59 75 mg QDAY CHYNA Administration Docusate Sodium 100 mg 08/08/25 09:00 08/10/25 08:06 Docusate Sod 100 Mg Capsule PO 09/07/25 08:59 Not Given BID CHYNA Protocol Heparin Sodium (Porcine) 5,000 unit 08/06/25 21:00 08/10/25 08:06 Heparin Sod Inj 5000 Unit/Ml Vial SC 08/20/25 20:59 5,000 unit Q12HR CHYNA Administration Lactulose 20 gm 08/07/25 09:00 08/10/25 08:06 Lactulose Syrup 20 Gm/30 Ml Udc PO 09/06/25 08:59 Not Given QDAY CHYNA Protocol Ondansetron HCl 4 mg 08/06/25 15:21 Ondansetron Inj 2 Mg/Ml Inj 2 Ml IVP 09/05/25 15:20 Q6H PRN NAUSEA OR VOMITING Protocol Oseltamivir Phosphate 75 mg 08/06/25 21:00 08/10/25 08:06 Oseltamivir 75 Mg Capsule PO 08/13/25 20:59 75 mg BID CHYNA Administration Pantoprazole Sodium 40 mg 08/07/25 09:00 08/10/25 08:06 Pantoprazole 40 Mg Tablet PO 09/06/25 08:59 40 mg QDAY CHYNA Administration Sacubitril/Valsartan 1 tab 08/07/25 09:00 08/10/25 08:06 Sacubitril 24 Mg/Valsartan 26 Mg Tablet PO 09/06/25 08:59 1 tab BID CHYNA Administration Sennosides 1 tab 08/08/25 09:00 08/09/25 08:27 Senna Tablet PO 09/07/25 08:59 Not Given QDAY CHYNA Protocol Tamsulosin HCl 0.4 mg 08/07/25 09:00 08/10/25 08:05 Tamsulosin Hcl 0.4 Mg Capsule PO 09/06/25 08:59 0.4 mg QDAY CHYNA Administration Plan Mr. King is a 65-year-old male with past medical history of heart failure with reduced ejection fraction, EF 20-25% 03/2025, combined systolic and diastolic heart failure, mild to moderate AV stenosis, benign prostate hypertrophy, ?Cirrhosis, hepatitis C infection, infrarenal abdominal aortic aneurysm, peripheral arterial disease status post iliac stent (on asa and plavix), hyperlipidemia and former cocaine use and chronic smoker with 30 pack years who presented to [facility] emergency department with a chief complaint of bilateral lower extremity edema up to scrotum, admitted for acute congestive heart failure exacerbation and PA. Continue with diuresis. #Acute CHF exacerbation with - improving #HFrEF, EF 25-30% #NYHA class III Most likely that patient's recurrent acute CHF exacerbations are secondary to high sodium diet given his limited ability to ambulate he relies heavily on TV dinners. He is compliant with his diuretic medications but continues to have significant lower extremity edema. Patient follow with cardiology Dr. Mcclelland with last visit being earlier this month. Patient stated that recent dose change was made to Bumex from 1 mg p.o. to 2 mg p.o. daily. But since past couple of days he has been endorsing worsening shortness of breath difficulty walking short distances around his apartment. Complains of worsening swelling, coughing, shortness of breath. Volume Overload, BNP >3200, severe edema to the scrotum, and crackles on auscultation bilaterally. 230 Dry weight (pt states that he now weighs about 275) At home, patient is on GDMT of metoprolol XL 25 mg QD, Entresto 1 tablet BID, spironolactone 25 mg QD. EKG showed sinus rhythm HR 90 with QTC 474 with left axis deviation. - Continue IV Bumex 2 mg QD, goal of net 2-3L negative over 24h, CTM for contraction alkalosis and electrolyte abnormalities - If contraction alkalosis continues to worsen, hold Bumex and give acetazolamide 500 mg x1 - Continue Entresto 1 tab BID (hold if sbp<90) - Hold metoprolol and spironolactone iso soft BP and for anticipation of further diuresis - echocardiogram EF 25-30% Dilated Cardiomyopathy, Dilated LV, Severey systolic dysfunction. Severe global hypokinesis - Strict I&Os, daily weights - Low sodium diet, 1.5L fluid restriction - CTM renal panel - Keep K>4 and Mg>2 at all times - net negative 5200 cc #Small L pleural effusion effusion noted on CXR, too small to do thora - cont diuresis. #PA 2/2 cardiorenal syndrome- resolved Cr on admission 1.6 with baseline of 0.8-1 likely 2/2 to cardiorenal syndrome with acute exacerbation and fluid overload. Cr 1.1 -maintenance fluids -avoid nephrotoxic agents -daily CMP -anticipate improvement with continued diuresis #Infrarenal abdominal aortic aneurysm, 3.3 cm #PAD s/p bilateral iliac artery stents #Significant narrowing of L common iliac artery stent CTAP on 06/24/2025 shows infrarenal abdominal aorta 3.3 cm small blood and 11 mm off the lateral margin of the infrarenal aorta. With bilateral iliac artery stents, significant narrowing of the left common iliac artery stent and healthy calcification of the common femoral arteries. On exam pedal pulses 1+ with diminished light touch sensation on dorsal aspect of bilateral feet. MONICO (05/01/2025): Right ankle/Brachial index 1.1 and Left ankle/Brachial index 1.1 - Continue Plavix 75 mg QD and ASA 81 mg QD - Continue to follow up outpatient for further management #Influenza positive On Tamiflu 75 mg twice daily, (08/06- #History of NSVT On previous admission on 06/24/2025, patient was noted to have 1 episode of NSVT on 06/30/2025 and was started on amiodarone drip and later transition to oral amiodarone 200 mg twice daily. Telemetry reviewed and no arrhythmias noted. - Continue PO amiodarone 200 mg QD - Telemetry for cardiac monitoring #HTN #HLD On admission, BP 129/87 HR 94. Lipid panel cholesterol 98, triglycerides 54, LDL 50, HDL 37. - Continue home atorvastatin 80 mg Qhs - Continue Entresto 1 tab BID (hold if bp<90) - Hold metoprolol and spironolactone as above, resume as BP tolerates #COPD Patient does use oxgyen at home. Denies exacerbation in some time. -breathing treatments as needed -cont pulse ox -cont diuresing BPH - cont tamsulosin 0.4 mg qd HLD - atorvastatin 80 qhs Chronic smoking history, 30 pack years Not an active smoker currently, history of 30 pack years, no lung nodules/lymphadenopathy noted on CTA - Outpatient screening including CT chest, AAA screening >65 Health maintenance: Dispo: tele, actue CHF exacerbation, diureses, PT therapy reccommends SNF FEN: cardic DVT prophylaxis: Subcu heparin CODE STATUS: Full code Plan discussed with Dr. Menchaca, and Dr. Roel Dooley MD PGY1 Attending Provider Attestation/Addendum I have discussed and was present for the essential components of the history, physical examination, diagnosis, and treatment plan with the resident. I agree with the patient's care as documented by the resident and amended herein by me. Jorge Luis Sevilla DO. Although this document has been carefully reviewed, there may still be some phonetic and other typographical errors. These errors are purely grammatical due to imperfections in the software program and should not be construed in any way to compromise the substance of the patient's medical care during this visit.
--- NOTE | 2025-08-10 16:18 | ESPR_ITS ---
Documentation for date of: 08/10/25 Subjective Subjective Interval history: Patient seen and examined at bedside. Telemetry reviewed and no arrhythmias noted. Vitals lab reviewed. Patient Dors is feeling much better today, breathing has greatly improved and off supplemental oxygen. Occasional shortness of breath during conversation. Leg edema is persistent however improved with associated soreness. Denies palpitations, chest pain, chest pressure, lightheadedness, dizziness. Net 24h -4.4 L. Patient saturating 99% on room air. Potassium 4.0, bicarb decreased from 31 to 30, creatinine 1.1, magnesium 2.2. Exam Vital Signs Temp Pulse Resp BP Pulse Ox O2 Del Method O2 Flow Rate 97.3 F 86 17 106/72 95 Room Air 2 08/10/25 16:00 08/10/25 16:08/10/25 16:08/10/25 16:08/10/25 16:08/10/25 16:08/10/25 12:00 Narrative Exam GENERAL: AOx3, lying comfortably in bed HEENT: NC/AT, mucous membranes moist, bilateral sclera anicteric CARDIOVASCULAR: regular rate and rhythm, S1/S2 present, 4/6 harsh systolic murmur PULMONARY: R lung CTA, L base diminished breath sounds, no crackles ABDOMINAL: soft, non-tender, distended and edematous, no rebound/guarding, bowel sounds present EXTREMITIES: BLE 4+ pitting edema up to scrotum including scrotum, decreased sensation of bilateral dorsum of feet, diminished 1+ pedal pulses SKIN: venous stasis dermatitis, flaky bilateral feet, 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 NEURO: CN II-XII grossly intact, no focal deficits, alert, following commands Objective Labs 08/10/25 04:41 08/10/25 04:41 Labs: Laboratory Results - last 24 hr 08/10/25 04:41 WBC 7.1 RBC 4.24 L Hgb 12.1 L Hct 39.3 L MCV 93 MCH 28.5 MCHC 30.8 L RDW Std Deviation 50.7 H Plt Count 171 Neut % (Auto) 73 Lymph % (Auto) 13 [place] % (Auto) 10 Eos % (Auto) 4 Baso % (Auto) 1 Neut # (Auto) 5.2 Lymph # (Auto) 0.9 L [place] # (Auto) 0.7 Eos # (Auto) 0.3 Baso # (Auto) 0.1 Immature Gran # (Auto) 0.03 H Absolute Nucleated RBC 0.00 Immature Gran % 0 Nucleated RBC % 0 Sodium 140 Potassium 4.0 Chloride 100 Carbon Dioxide 30.2 Anion Gap 10 BUN 14 Creatinine 1.1 Estim Creat Clear Calc 88.7 eGFR > 60 BUN/Creatinine Ratio 13 Glucose 98 Calculated Osmolality 279 Calcium 8.5 Corrected Calcium 9.1 Phosphorus 4.3 Magnesium 2.2 Total Bilirubin 1.3 H AST 43 H ALT 26 Alkaline Phosphatase 95 Total Protein 5.8 Albumin 3.3 L Globulin 2.5 Albumin/Globulin Ratio 1.3 Quality Measures Quality Measures VTE prophylaxis Assessment & Plan Assessment Current Active Medications: Generic Name Dose Route Start Last Admin Trade Name Freq PRN Reason Stop Dose Admin Acetaminophen 650 mg 08/06/25 15:21 Acetaminophen 325 Mg Tablet PO 09/05/25 15:20 Q6H PRN PAIN SCALE 1-3 (mild Amiodarone HCl 200 mg 08/10/25 09:00 08/10/25 08:05 Amiodarone Hcl 200 Mg Tablet PO 09/09/25 08:59 200 mg DAILY CHYNA Administration Aspirin 81 mg 08/07/25 09:00 08/10/25 08:06 Aspirin Ec 81 Mg Tabec PO 09/06/25 08:59 81 mg QDAY CHYNA Administration Atorvastatin Calcium 80 mg 08/07/25 21:00 08/09/25 21:59 Atorvastatin Calcium 20 Mg Tablet PO 09/06/25 20:59 80 mg QPM CHYNA Administration Bumetanide 2 mg 08/07/25 09:00 08/10/25 08:04 Bumetanide Inj 0.25 Mg/Ml Vial 4 Ml IVP 09/06/25 08:59 2 mg QDAY CHYNA Administration Clopidogrel Bisulfate 75 mg 08/07/25 09:00 08/10/25 08:06 Clopidogrel Bisulfate 75 Mg Tablet PO 09/06/25 08:59 75 mg QDAY CHYNA Administration Docusate Sodium 100 mg 08/08/25 09:00 08/10/25 08:06 Docusate Sod 100 Mg Capsule PO 09/07/25 08:59 Not Given BID CHYNA Protocol Heparin Sodium (Porcine) 5,000 unit 08/06/25 21:00 08/10/25 08:06 Heparin Sod Inj 5000 Unit/Ml Vial SC 08/20/25 20:59 5,000 unit Q12HR CHYNA Administration Lactulose 20 gm 08/07/25 09:00 08/10/25 08:06 Lactulose Syrup 20 Gm/30 Ml Udc PO 09/06/25 08:59 Not Given QDAY CHYNA Protocol Ondansetron HCl 4 mg 08/06/25 15:21 Ondansetron Inj 2 Mg/Ml Inj 2 Ml IVP 09/05/25 15:20 Q6H PRN NAUSEA OR VOMITING Protocol Oseltamivir Phosphate 75 mg 08/06/25 21:00 08/10/25 08:06 Oseltamivir 75 Mg Capsule PO 08/13/25 20:59 75 mg BID CHYNA Administration Pantoprazole Sodium 40 mg 08/07/25 09:00 08/10/25 08:06 Pantoprazole 40 Mg Tablet PO 09/06/25 08:59 40 mg QDAY CHYNA Administration Sacubitril/Valsartan 1 tab 08/07/25 09:00 08/10/25 08:06 Sacubitril 24 Mg/Valsartan 26 Mg Tablet PO 09/06/25 08:59 1 tab BID CHYNA Administration Sennosides 1 tab 08/08/25 09:00 08/09/25 08:27 Senna Tablet PO 09/07/25 08:59 Not Given QDAY [facility] Protocol Tamsulosin HCl 0.4 mg 08/07/25 09:00 08/10/25 08:05 Tamsulosin Hcl 0.4 Mg Capsule PO 09/06/25 08:59 0.4 mg QDAY CHYNA Administration Plan Wood King 65M pmhx significant for HFrEF (20-25% 03/2025), low-flow moderate AV stenosis, HTN, HLD, infrarenal abdominal aortic aneurysm, PAD s/p iliac stent, former cocaine use, chronic smoker, BPH, cirrhosis and Hepatitis C infection who presents with worsening BLE edema, admitted for acute on chronic heart failure. Cardiology consulted for further management. #Acute on chronic HFrEF, EF 20-25% 03/2025, NYHA Class III #PA 2/2 cardiorenal syndrome #Combined systolic and diastolic heart failure #Low Flow Moderate AV stenosis Patient presented with worsening bilateral lower extremity edema, recently saw public health and Bumex was increased to 2 mg daily from 1 mg daily. However swelling persisted and worsened with associated worsening dyspnea on exertion and SOB while speaking prompting current hospitalization. Admission BNP >3820 with negative troponins. At home, patient is on GDMT of metoprolol XL 25 mg QD, Entresto 1 tablet BID, spironolactone 25 mg QD. Patient admits to not taking medication consistently. EKG showed sinus rhythm HR 90 with QTC 474 with left axis deviation. Cr on admission 1.6 with baseline of 0.8-1 likely 2/2 to cardiorenal syndrome with acute exacerbation and fluid overload. 03/2025 Echo showed dilated cardiomyopathy, dilated LV, severe systolic expression, severe global hypokinesis, estimated EF 20 to 30%, grade 2 diastolic dysfunction, mild RV dilatation, mild RV systolic dysfunction, mild to moderate AV stenosis, low gradient due to low EF, mean PG 12-14 mmHg but JE around 1.1 to 1.2 cm? which indicates at least moderate stenosis, mild MAC, mild MR and TR, trace AI, mildly dilated LA volume at 40.5 mL/m?. 08/2025 Echo showed dilated cardiomyopathy, dilated LV, severe systolic function, severe global hypokinesis, estimated EF 25 to 30%. Grade 2 diastolic dysfunction. Mild RV dilatation, mild RV systolic dysfunction, mild to moderate AV stenosis low gradient due to low EF, mean PG 12 to 14 mmHg by JE around 1.1 to 1.2 cm? which indicates at least moderate stenosis, mild MAC mild TR mild TR, trace AI and PI, mild dilated LA volume 52.2 mL/m?. No significant change from previous echo 03/15/2025 08/09/25 CXR shows mild enlargement cardiac contour, prominent vascular congestion and perihilar basilar edema, moderate left pleural fluid. Plan: - Continue IV Bumex 2 mg QD, goal of net 2-3L negative over 24h, CTM for contraction alkalosis and electrolyte abnormalities - If contraction alkalosis continues to worsen, hold Bumex and give acetazolamide 500 mg x1 - Continue Entresto 1 tab BID, add parameters to hold if SBP<90 as current BP are soft and anticipate further diuresis - Hold metoprolol and spironolactone iso soft BP and for anticipation of further diuresis - Strict I&Os, daily weights - Low sodium diet, 1.5L fluid restriction - CTM renal panel - Keep K>4 and Mg>2 at all times #Infrarenal abdominal aortic aneurysm, 3.3 cm #PAD s/p bilateral iliac artery stents #Significant narrowing of L common iliac artery stent CTAP on 06/24/2025 shows infrarenal abdominal aorta 3.3 cm small blood and 11 mm off the lateral margin of the infrarenal aorta. With bilateral iliac artery stents, significant narrowing of the left common iliac artery stent and healthy calcification of the common femoral arteries. On exam pedal pulses 1+ with diminished light touch sensation on dorsal aspect of bilateral feet. MONICO (05/01/2025): Right ankle/Brachial index 1.1 and Left ankle/Brachial index 1.1 Plan: - Continue Plavix 75 mg QD and ASA 81 mg QD - Continue to follow up outpatient for further management #History of NSVT On previous admission on 06/24/2025, patient was noted to have 1 episode of NSVT on 06/30/2025 and was started on amiodarone drip and later transition to oral amiodarone 200 mg twice daily. Telemetry reviewed and no arrhythmias noted. Plan: - Continue PO amiodarone 200 mg QD - Telemetry for cardiac monitoring #HTN #HLD On admission, BP 129/87 HR 94. Lipid panel cholesterol 98, triglycerides 54, LDL 50, HDL 37. Plan: - Continue home atorvastatin 80 mg Qhs - Continue Entresto 1 tab BID - Hold metoprolol and spironolactone as above, resume as BP tolerates #Chronic smoking history, 30 pack years #Cirrhosis #Benign prostate hypertrophy #Normocytic normochromic anemia #Hepatitis C #COPD Plan: - Management per primary team Thank you for the consultation and allowing us to participate in patient's care. Plan of care discussed with attending Dr. Mcclelland, fiscal accountant Leandra Moss, DO PGY-1 Internal Medicine Attending Provider Attestation/Addendum I have personally seen and examined the patient separately on the above date of service and discussed the plan of care with the resident. I reviewed the resident Dr. Leandra Moss consultation progress note and agree with the resident findings and plan in the note above and have also edited the documentation to reflect my findings and plan. Ernie Mcclelland M.D. Interventional Cardiology
[2025-08-10] MEDS: ATORVASTATIN CALCIUM 20 MG TABLET 80 MG PO (21:29)
[2025-08-11] VITALS (12 sets, daily range): BP systolic 95–116; BP diastolic 63–79; PULSE 70–94; RESP 12–22; TEMP 36.1–36.3; O2SAT 92–99
[2025-08-11 05:42] LABS: Basophils # (Auto) 0.1 Thou/mm3 (0.0-0.2); Basophils % (Auto) 1 % (0-2.5); Eosinophils # (Auto) 0.3 Thou/mm3 (0.0-0.5); Eosinophils % (Auto) 4 % (0-10); Hematocrit 40.8 % (41.0-53.0); Hemoglobin 12.8 g/dL (13.5-16.0); Immature Granulocytes Auto 0.03 Thou/mm3 (0.00-0.00); Lymphocytes # (Auto) 1.0 Thou/mm3 (1.0-4.8); Lymphocytes % (Auto) 15 % (10-50); Mean Corpuscular HGB Conc 31.4 g/dl (31.0-37.0); Mean Corpuscular Hemoglobin 29.2 pg (25.0-35.0); Mean Corpuscular Volume 93 fL (80-100); Monocytes # (Auto) 0.6 Thou/mm3 (0.0-0.8); Monocytes % (Auto) 9 % (0-12); Neutrophils # (Auto) 4.9 Thou/mm3 (1.8-7.7); Neutrophils % (Auto) 71 % (37-80); Nucleated Red Blood Cell # 0.00 Thou/mm3 (0.00-0.00); Nucleated Red Blood Cell % 0 /100 WBC (0); Platelet Count 196 Thou/mm3 (140-440); RDW Standard Deviation 51.5 fL (35.1-43.9); Red Blood Count 4.39 Miln/mm3 (4.50-5.90); White Blood Count 6.9 Thou/mm3 (3.8-10.6)
[2025-08-11 06:12] LABS: Alanine Aminotransferase 30 U/L (10-49); Albumin, Serum 3.3 gm/dL (3.4-4.8); Albumin/Globulin Ratio 1.2 (1.2-2.2); Alkaline Phosphatase 101 U/L (46-116); Anion Gap 7 (7-16); Aspartate Amino Transferase 59 U/L (0-34); BUN/Creatinine Ratio 12 Ratio (12-20); Bilirubin,Total 1.1 mg/dL (0.3-1.2); Blood Urea Nitrogen 12 mg/dL (9-23); Calcium 8.7 mg/dL (8.3-10.6); Calcium (Corrected) 9.3 mg/dL (8.5-10.1); Carbon Dioxide 31.3 mMol/L (20.0-31.0); Chloride 101 mMol/L (98-107); Creatinine (Component) 1.0 mg/dL (0.6-1.3); Estimated Creatinine Clearance 96.5 mL/min (>60); Globulin 2.7 gm/dL (2.3-3.5); Glucose 100 mg/dL (74-106); Magnesium 2.1 mg/dL (1.6-2.6); Osmolality,Calculated 277 (275-295); Phosphorous 3.9 mg/dL (2.4-5.1); Potassium 4.1 mMol/L (3.4-5.1); Sodium 139 mMol/L (136-145); Total Protein 6.0 gm/dL (5.7-8.2); eGFR > 60 See Note
--- NOTE | 2025-08-11 07:39 | ESPR_ITS ---
<Statement entered by Cleo Deleon MD - 08/11/25 17:05> Patient seen and examined at bedside. No acute overnight events reported. Patient had total urine output of 4 L in last 24 hours. Patient does continue to have decreased left breath sounds, and will start patient on IV Rocephin today to cover for community-acquired pneumonia. Repeat chest x-ray does show elevation of the left lower lobe. Patient will finish Tamiflu course for his influenza pneumonia. Pending authorization to custodial facility. Patient will need to follow-up with cardiology and PCP status post hospital discharge. I discussed with and supervised the corporate communications intern physician who took care of this patient. I personally saw and examined the patient and discussed the assessment and plan with the entire medicine team, including my attending Dr. Sevilla, I agree with most of the assessment and plan as documented below Cleo Deleon M.D. PGY-3 Disclaimer: Despite multiple revisions, due to the dictation software being used, the document bellow may not be free of grammatical errors including phonetic/typographic errors. However, this does not deter from our commitment to providing health care in the patient's best interest in mind. Documentation for date of: 08/11/25 Subjective Subjective Interval history: Mr. King is a 65-year-old male with past medical history of heart failure with reduced ejection fraction, EF 20-25% 03/2025, combined systolic and diastolic heart failure, mild to moderate AV stenosis, benign prostate hypertrophy, ?Cirrhosis, hepatitis C infection, infrarenal abdominal aortic aneurysm, peripheral arterial disease status post iliac stent (on asa and plavix), hyperlipidemia and former cocaine use and chronic smoker with 30 pack years who presented to [facility] emergency department with a chief complaint of bilateral lower extremity edema up to scrotum, admitted for acute congestive heart failure exacerbation and PA 08/07/2025 patient seen and examined while in telemetry. Patient states that he continues to have shortness of breath and speaks in short abbreviated sentences. His edema is still significant scrotal edema notably better compared to time of admission. Urine output 4800 cc in the past 24 hours plan to continue on 2 mg IV Bumex daily restarted home Entresto and atorvastatin 80, patient on 1500 cc fluid restriction. Creatinine 1.3 from 1.6. Patient reports desire to go to SNF in [place] where his mom lives, patient has difficulty ambulating and caring for himself while in assisted living facility in [place]. 08/08/2025: Patient seen and examined while in telemetry. Today patient acknowledges that his exacerbations are likely secondary to his TV dinner intake with high sodium content. Patient continues to have shortness of breath and speak in short abbreviated sentences. His edema remains 3+ and scrotal edema seems to be stable from yesterday. Urine output is 4400 cc in the past 24 hours. Plan is to continue on 2 mg IV Bumex daily. On Entresto and atorvastatin, holding home beta-daysi in setting of acute exacerbation continues on 1500 cc fluid restriction creatinine stable at 1.3. Patient has [employer] so question whether he can qualify for SNF placement at the same facility that that his mom lives in in [place]. 08/10/2025: Patient seen and examined while in telemetry. He continues on IV diuresis with 2 mg IV Bumex, blood pressures have been soft hold parameters for Entresto systolic below 90, net -5200 cc today continues on 1500 fluid restriction weight today is 111 kg from 117 kg yesterday. Continues to have 2- 3+ lower extremity edema, scrotal edema is resolved 08/11/2025: Patient seen and examined while in telemetry. He continues on IV diuresis with 2 mg IV Bumex, blood pressures have been soft but stable he continues on Entresto (hold for systolic below 90). UOP 4100, weight 246. LE edema is improved. increased skin wrinkling around ankles. CXR with left lower pna started on ceftriaxone today. Exam Vital Signs Temp Pulse Resp BP Pulse Ox O2 Del Method O2 Flow Rate 97.0 F 82 20 110/72 99 Nasal Cannula 2 08/11/25 03:50 08/11/25 05:35 08/11/25 05:35 08/11/25 03:50 08/11/25 05:35 08/11/25 03:50 08/11/25 05:35 Narrative Exam GENERAL: no acute distress, AAO x3, sitting at 45 degrees in bed HEENT: Head AT/ NC. Mucous membranes moist. PERRL. poor dentition NECK: Supple, no lymphadenopathy, no carotid bruits. CARDIOVASCULAR: RRR. Normal S1/S2, systolic murmor, 2+ pitting edema of bilateral LEs , RESPIRATORY:decreased breath sounds on L base with some trace crackles bilaterally, pt is intermittently coughing during exam GASTROINTESTINAL: obese, Abdomen soft, non tender no palpable masses. Bowel sounds present : sanders catheter in place, burried penis, MUSCULOSKELETAL:? No cyanosis or edema, no visible joint swelling. NEUROLOGICAL: CN II-XII grossly intact. No focal deficits. diminished sensation of BL feet, weak pedal pulses. PSYCHIATRIC: Awake and alert, not agitated, normal mood and affect.(tearful?) SKIN: ahsan stasis, L 2nd toe amputation, cool to touch, increased skin wrinling around ankles and distal shins. Objective Labs 08/11/25 04:55 08/11/25 04:55 Labs: Laboratory Results - last 24 hr 08/11/25 04:55 WBC 6.9 RBC 4.39 L Hgb 12.8 L Hct 40.8 L MCV 93 MCH 29.2 MCHC 31.4 RDW Std Deviation 51.5 H Plt Count 196 Neut % (Auto) 71 Lymph % (Auto) 15 [place] % (Auto) 9 Eos % (Auto) 4 Baso % (Auto) 1 Neut # (Auto) 4.9 Lymph # (Auto) 1.0 [place] # (Auto) 0.6 Eos # (Auto) 0.3 Baso # (Auto) 0.1 Immature Gran # (Auto) 0.03 H Absolute Nucleated RBC 0.00 Immature Gran % 0 Nucleated RBC % 0 Sodium 139 Potassium 4.1 Chloride 101 Carbon Dioxide 31.3 H Anion Gap 7 BUN 12 Creatinine 1.0 Estim Creat Clear Calc 96.5 eGFR > 60 BUN/Creatinine Ratio 12 Glucose 100 Calculated Osmolality 277 Calcium 8.7 Corrected Calcium 9.3 Phosphorus 3.9 Magnesium 2.1 Total Bilirubin 1.1 AST 59 H ALT 30 Alkaline Phosphatase 101 Total Protein 6.0 Albumin 3.3 L Globulin 2.7 Albumin/Globulin Ratio 1.2 Quality Measures Quality Measures VTE prophylaxis Assessment & Plan Assessment Current Active Medications: Generic Name Dose Route Start Last Admin Trade Name Freq PRN Reason Stop Dose Admin Acetaminophen 650 mg 08/06/25 15:21 Acetaminophen 325 Mg Tablet PO 09/05/25 15:20 Q6H PRN PAIN SCALE 1-3 (mild Amiodarone HCl 200 mg 08/10/25 09:00 08/10/25 08:05 Amiodarone Hcl 200 Mg Tablet PO 09/09/25 08:59 200 mg DAILY CHYNA Administration Aspirin 81 mg 08/07/25 09:00 08/10/25 08:06 Aspirin Ec 81 Mg Tabec PO 09/06/25 08:59 81 mg QDAY CHYNA Administration Atorvastatin Calcium 80 mg 08/07/25 21:00 08/10/25 21:29 Atorvastatin Calcium 20 Mg Tablet PO 09/06/25 20:59 80 mg QPM CHYNA Administration Bumetanide 2 mg 08/07/25 09:00 08/10/25 08:04 Bumetanide Inj 0.25 Mg/Ml Vial 4 Ml IVP 09/06/25 08:59 2 mg QDAY CHYNA Administration Clopidogrel Bisulfate 75 mg 08/07/25 09:00 08/10/25 08:06 Clopidogrel Bisulfate 75 Mg Tablet PO 09/06/25 08:59 75 mg QDAY CHYNA Administration Docusate Sodium 100 mg 08/08/25 09:00 08/10/25 21:30 Docusate Sod 100 Mg Capsule PO 09/07/25 08:59 Not Given BID CHYNA Protocol Heparin Sodium (Porcine) 5,000 unit 08/06/25 21:00 08/10/25 21:28 Heparin Sod Inj 5000 Unit/Ml Vial SC 08/20/25 20:59 5,000 unit Q12HR CHYNA Administration Lactulose 20 gm 08/07/25 09:00 08/10/25 08:06 Lactulose Syrup 20 Gm/30 Ml Udc PO 09/06/25 08:59 Not Given QDAY [facility] Protocol Ondansetron HCl 4 mg 08/06/25 15:21 Ondansetron Inj 2 Mg/Ml Inj 2 Ml IVP 09/05/25 15:20 Q6H PRN NAUSEA OR VOMITING Protocol Oseltamivir Phosphate 75 mg 08/06/25 21:00 08/10/25 21:28 Oseltamivir 75 Mg Capsule PO 08/13/25 20:59 75 mg BID CHYNA Administration Pantoprazole Sodium 40 mg 08/07/25 09:00 08/10/25 08:06 Pantoprazole 40 Mg Tablet PO 09/06/25 08:59 40 mg QDAY CHYNA Administration Sacubitril/Valsartan 1 tab 08/10/25 18:21 08/10/25 21:29 Sacubitril 24 Mg/Valsartan 26 Mg Tablet PO 09/06/25 08:59 1 tab BID CHYNA Administration Sennosides 1 tab 08/08/25 09:00 08/10/25 21:30 Senna Tablet PO 09/07/25 08:59 Not Given QDAY [facility] Protocol Tamsulosin HCl 0.4 mg 08/07/25 09:00 08/10/25 08:05 Tamsulosin Hcl 0.4 Mg Capsule PO 09/06/25 08:59 0.4 mg QDAY [facility] Administration Plan Mr. King is a 65-year-old male with past medical history of heart failure with reduced ejection fraction, EF 20-25% 03/2025, combined systolic and diastolic heart failure, mild to moderate AV stenosis, benign prostate hypertrophy, ?Cirrhosis, hepatitis C infection, infrarenal abdominal aortic aneurysm, peripheral arterial disease status post iliac stent (on asa and plavix), hyperlipidemia and former cocaine use and chronic smoker with 30 pack years who presented to [facility] emergency department with a chief complaint of bilateral lower extremity edema up to scrotum, admitted for acute congestive heart failure exacerbation and PA. Continue with diuresis. started on abx for L lobar pneumonia. #Acute CHF exacerbation with - improving #HFrEF, EF 25-30% #NYHA class III Most likely that patient's recurrent acute CHF exacerbations are secondary to high sodium diet given his limited ability to ambulate he relies heavily on TV dinners. He is compliant with his diuretic medications but continues to have significant lower extremity edema. Patient follow with cardiology Dr. Mcclelland with last visit being earlier this month. Patient stated that recent dose change was made to Bumex from 1 mg p.o. to 2 mg p.o. daily. But since past couple of days he has been endorsing worsening shortness of breath difficulty walking short distances around his apartment. Complains of worsening swelling, coughing, shortness of breath. Volume Overload, BNP >3200, severe edema to the scrotum, and crackles on auscultation bilaterally. 230 Dry weight (pt states that he now weighs about 275) At home, patient is on GDMT of metoprolol XL 25 mg QD, Entresto 1 tablet BID, spironolactone 25 mg QD. EKG showed sinus rhythm HR 90 with QTC 474 with left axis deviation. - Continue IV Bumex 2 mg QD, goal of net 2-3L negative over 24h, CTM for contraction alkalosis and electrolyte abnormalities - If contraction alkalosis continues to worsen, hold Bumex and give acetazolamide 500 mg x1 - Continue Entresto 1 tab BID (hold if sbp<90) - Hold metoprolol and spironolactone iso soft BP and for anticipation of further diuresis - echocardiogram EF 25-30% Dilated Cardiomyopathy, Dilated LV, Severey systolic dysfunction. Severe global hypokinesis - Strict I&Os, daily weights - Low sodium diet, 1.5L fluid restriction - CTM renal panel - Keep K>4 and Mg>2 at all times - net negative 4100 cc - weight: 246 lbs #CAP #Influenza positive CXR with c/f LLL pneumonia, pt has wet cough - start abx ceftriaxone (08/11- - plan to discharge with 4 days of azithro 250 qd and amox clauvulante 875 BID . - Tamiflu 75 mg twice daily, (08/06-08/11) #Small L pleural effusion effusion noted on CXR, too small to do thora - cont diuresis. #PA 2/2 cardiorenal syndrome- resolved Cr on admission 1.6 with baseline of 0.8-1 likely 2/2 to cardiorenal syndrome with acute exacerbation and fluid overload. Cr 1.1 -maintenance fluids -avoid nephrotoxic agents -daily CMP -anticipate improvement with continued diuresis #Infrarenal abdominal aortic aneurysm, 3.3 cm #PAD s/p bilateral iliac artery stents #Significant narrowing of L common iliac artery stent CTAP on 06/24/2025 shows infrarenal abdominal aorta 3.3 cm small blood and 11 mm off the lateral margin of the infrarenal aorta. With bilateral iliac artery stents, significant narrowing of the left common iliac artery stent and healthy calcification of the common femoral arteries. On exam pedal pulses 1+ with diminished light touch sensation on dorsal aspect of bilateral feet. MONICO (05/01/2025): Right ankle/Brachial index 1.1 and Left ankle/Brachial index 1.1 - Continue Plavix 75 mg QD and ASA 81 mg QD - Continue to follow up outpatient for further management #History of NSVT On previous admission on 06/24/2025, patient was noted to have 1 episode of NSVT on 06/30/2025 and was started on amiodarone drip and later transition to oral amiodarone 200 mg twice daily. Telemetry reviewed and no arrhythmias noted. - Continue PO amiodarone 200 mg QD - Telemetry for cardiac monitoring #HTN #HLD On admission, BP 129/87 HR 94. Lipid panel cholesterol 98, triglycerides 54, LDL 50, HDL 37. - Continue home atorvastatin 80 mg Qhs - Continue Entresto 1 tab BID (hold if bp<90) - Hold metoprolol and spironolactone as above, resume as BP tolerates #COPD Patient does use oxgyen at home. Denies exacerbation in some time. -breathing treatments as needed -cont pulse ox -cont diuresing BPH - cont tamsulosin 0.4 mg qd HLD - atorvastatin 80 qhs Chronic smoking history, 30 pack years Not an active smoker currently, history of 30 pack years, no lung nodules/lymphadenopathy noted on CTA - Outpatient screening including CT chest, AAA screening >65 Health maintenance: Dispo: tele, actue CHF exacerbation, diureses, PT therapy reccommends SNF, likely d.c tomorrow, give abx for LLL pneumonia. FEN: cardic DVT prophylaxis: Subcu heparin CODE STATUS: Full code Plan discussed with Dr Deleon, and Dr. Roel Dooley MD PGY1 Attending Provider Attestation/Addendum I have discussed and was present for the essential components of the history, physical examination, diagnosis, and treatment plan with the resident. I agree with the patient's care as documented by the resident and amended herein by me. Jorge Luis Sevilla DO. Although this document has been carefully reviewed, there may still be some phonetic and other typographical errors. These errors are purely grammatical due to imperfections in the software program and should not be construed in any way to compromise the substance of the patient's medical care during this visit. Patient seen and evaluated this AM. No acute events overnight, I/O8 mL, weight 112 kg, patient on 2 L nasal cannula, SpO2 99%. Labs largely unremarkable, patient's edema much improved today, still 2+ but significantly improved over previous days, patient net negative over 18 L at this point. We still have work to do, will continue to diurese with Bumex 2 mg twice daily, continue aspirin and Plavix, amiodarone 200 mg daily, statin, Entresto I will discontinue his Tamiflu today, patient has completed an adequate course at this point. Cardiology consulted, appreciate recommendations, likely DC home in 1 to 2 days pending further clinical improvement.
[2025-08-11] MEDS: TAMSULOSIN HCL 0.4 MG CAPSULE PO (08:26)
[2025-08-11] MEDS: OSELTAMIVIR 75 MG CAPSULE PO (08:27)
[2025-08-11] MEDS: PANTOPRAZOLE 40 MG TABLET PO (08:27)
[2025-08-11] MEDS: AMIODARONE HCL 200 MG TABLET PO (08:27)
[2025-08-11] MEDS: ASPIRIN EC 81 MG TABEC PO (08:27)
[2025-08-11] MEDS: CLOPIDOGREL BISULFATE 75 MG TABLET PO (08:27)
[2025-08-11] MEDS: HEPARIN SOD INJ 5000 UNIT/ML VIAL SC ×2 (08:28→20:28)
[2025-08-11] MEDS: BUMETANIDE INJ 0.25 MG/ML VIAL 4 ML 2 MG IVP (08:28)
[2025-08-11] MEDS: LACTULOSE SYRUP 20 GM/30 ML UDC PO (08:35)
[2025-08-11] MEDS: DOCUSATE SOD 100 MG CAPSULE PO (08:35)
--- NOTE | 2025-08-11 10:10 | XR_ITS ---
Examination: AP chest single view Technique one AP portable upright chest single view Date and time: August 11, 2025 1103 hours, comparison 08/09/2025 INDICATIONS: Shortness of breath today. FINDINGS: Prominent left base pneumonia. Mild to moderate left pleural fluid. Mild prominence of ventricle. No pulmonary edema. IMPRESSION: Prominent left base pneumonia
--- NOTE | 2025-08-11 10:18 | PD.RESPRO ---
Documentation for date of: 08/11/25 Subjective Subjective Interval history: Patient seen and examined at [facility]. Telmetry reviewed, no arrhythmias noted. Vitals and labs reviewed to be stable. Patient reports feeling well today, has been on and off oxygen however does not feel short of breath. Persistent soreness in legs. No new complaints. Patient denies chest pain, chest pressure, shortness of breath, palpitations, lightheadedness or dizziness. Net 24-hour -3.2 L total output 4.1 L. Bicarb increased from 30 to 31. Creatinine 1.0. Magnesium 2.1. Exam Vital Signs Temp Pulse Resp BP Pulse Ox O2 Del Method O2 Flow Rate 96.9 F 80 13 107/73 99 Room Air 2 08/11/25 08:00 08/11/25 08:28 08/11/25 08:00 08/11/25 08:28 08/11/25 08:00 08/11/25 08:00 08/11/25 05:35 Narrative Exam GENERAL: AOx3, lying comfortably in bed HEENT: NC/AT, mucous membranes moist, bilateral sclera anicteric CARDIOVASCULAR: regular rate and rhythm, S1/S2 present, 4/6 harsh systolic murmur PULMONARY: R lung CTA, L base diminished breath sounds, no crackles ABDOMINAL: soft, non-tender, distended and edematous, no rebound/guarding, bowel sounds present EXTREMITIES: BLE 4+ pitting edema up to scrotum including scrotum, decreased sensation of bilateral dorsum of feet, diminished 1+ pedal pulses SKIN: venous stasis dermatitis, flaky bilateral feet, 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 NEURO: CN II-XII grossly intact, no focal deficits, alert, following commands Objective Labs 08/15/25 05:02 08/15/25 05:02 Labs: Laboratory Results - last 24 hr 08/11/25 04:55 WBC 6.9 RBC 4.39 L Hgb 12.8 L Hct 40.8 L MCV 93 MCH 29.2 MCHC 31.4 RDW Std Deviation 51.5 H Plt Count 196 Neut % (Auto) 71 Lymph % (Auto) 15 [place] % (Auto) 9 Eos % (Auto) 4 Baso % (Auto) 1 Neut # (Auto) 4.9 Lymph # (Auto) 1.0 [place] # (Auto) 0.6 Eos # (Auto) 0.3 Baso # (Auto) 0.1 Immature Gran # (Auto) 0.03 H Absolute Nucleated RBC 0.00 Immature Gran % 0 Nucleated RBC % 0 Sodium 139 Potassium 4.1 Chloride 101 Carbon Dioxide 31.3 H Anion Gap 7 BUN 12 Creatinine 1.0 Estim Creat Clear Calc 96.5 eGFR > 60 BUN/Creatinine Ratio 12 Glucose 100 Calculated Osmolality 277 Calcium 8.7 Corrected Calcium 9.3 Phosphorus 3.9 Magnesium 2.1 Total Bilirubin 1.1 AST 59 H ALT 30 Alkaline Phosphatase 101 Total Protein 6.0 Albumin 3.3 L Globulin 2.7 Albumin/Globulin Ratio 1.2 Quality Measures Quality Measures VTE prophylaxis Assessment & Plan Assessment Current Active Medications: Generic Name Dose Route Start Last Admin Trade Name Freq PRN Reason Stop Dose Admin Acetaminophen 650 mg 08/06/25 15:21 Acetaminophen 325 Mg Tablet PO 09/05/25 15:20 Q6H PRN PAIN SCALE 1-3 (mild Amiodarone HCl 200 mg 08/10/25 09:00 08/11/25 08:27 Amiodarone Hcl 200 Mg Tablet PO 09/09/25 08:59 200 mg DAILY CHYNA Administration Aspirin 81 mg 08/07/25 09:00 08/11/25 08:27 Aspirin Ec 81 Mg Tabec PO 09/06/25 08:59 81 mg QDAY CHYNA Administration Atorvastatin Calcium 80 mg 08/07/25 21:00 08/10/25 21:29 Atorvastatin Calcium 20 Mg Tablet PO 09/06/25 20:59 80 mg QPM CHYNA Administration Bumetanide 2 mg 08/07/25 09:00 08/11/25 08:28 Bumetanide Inj 0.25 Mg/Ml Vial 4 Ml IVP 09/06/25 08:59 2 mg QDAY CHYNA Administration Clopidogrel Bisulfate 75 mg 08/07/25 09:00 08/11/25 08:27 Clopidogrel Bisulfate 75 Mg Tablet PO 09/06/25 08:59 75 mg QDAY CHYNA Administration Docusate Sodium 100 mg 08/08/25 09:00 08/11/25 08:35 Docusate Sod 100 Mg Capsule PO 09/07/25 08:59 100 mg BID CHYNA Administration Protocol Heparin Sodium (Porcine) 5,000 unit 08/06/25 21:00 08/11/25 08:28 Heparin Sod Inj 5000 Unit/Ml Vial SC 08/20/25 20:59 5,000 unit Q12HR CHYNA Administration Lactulose 20 gm 08/07/25 09:00 08/11/25 08:35 Lactulose Syrup 20 Gm/30 Ml Udc PO 09/06/25 08:59 20 gm QDAY CHYNA Administration Protocol Ondansetron HCl 4 mg 08/06/25 15:21 Ondansetron Inj 2 Mg/Ml Inj 2 Ml IVP 09/05/25 15:20 Q6H PRN NAUSEA OR VOMITING Protocol Oseltamivir Phosphate 75 mg 08/06/25 21:00 08/11/25 08:27 Oseltamivir 75 Mg Capsule PO 08/13/25 20:59 75 mg BID CHYNA Administration Pantoprazole Sodium 40 mg 08/07/25 09:00 08/11/25 08:27 Pantoprazole 40 Mg Tablet PO 09/06/25 08:59 40 mg QDAY CHYNA Administration Sacubitril/Valsartan 1 tab 08/10/25 18:21 08/11/25 08:27 Sacubitril 24 Mg/Valsartan 26 Mg Tablet PO 09/06/25 08:59 1 tab BID CHYNA Administration Sennosides 1 tab 08/08/25 09:00 08/11/25 08:35 Senna Tablet PO 09/07/25 08:59 1 tab QDAY CHYNA Administration Protocol Tamsulosin HCl 0.4 mg 08/07/25 09:00 08/11/25 08:26 Tamsulosin Hcl 0.4 Mg Capsule PO 09/06/25 08:59 0.4 mg QDAY CHYNA Administration Plan Wood King 65M pmhx significant for HFrEF (20-25% 03/2025), low-flow moderate AV stenosis, HTN, HLD, infrarenal abdominal aortic aneurysm, PAD s/p iliac stent, former cocaine use, chronic smoker, BPH, cirrhosis and Hepatitis C infection who presents with worsening BLE edema, admitted for acute on chronic heart failure. Cardiology consulted for further management. #Acute on chronic HFrEF, EF 20-25% 03/2025, NYHA Class III #PA 2/2 cardiorenal syndrome #Combined systolic and diastolic heart failure #Low Flow Moderate AV stenosis Patient presented with worsening bilateral lower extremity edema, recently saw blind stitch machine operator and Bumex was increased to 2 mg daily from 1 mg daily. However swelling persisted and worsened with associated worsening dyspnea on exertion and SOB while speaking prompting current hospitalization. Admission BNP >3820 with negative troponins. At home, patient is on GDMT of metoprolol XL 25 mg QD, Entresto 1 tablet BID, spironolactone 25 mg QD. Patient admits to not taking medication consistently. EKG showed sinus rhythm HR 90 with QTC 474 with left axis deviation. Cr on admission 1.6 with baseline of 0.8-1 likely 2/2 to cardiorenal syndrome with acute exacerbation and fluid overload. 03/2025 Echo showed dilated cardiomyopathy, dilated LV, severe systolic expression, severe global hypokinesis, estimated EF 20 to 30%, grade 2 diastolic dysfunction, mild RV dilatation, mild RV systolic dysfunction, mild to moderate AV stenosis, low gradient due to low EF, mean PG 12-14 mmHg but JE around 1.1 to 1.2 cm? which indicates at least moderate stenosis, mild MAC, mild MR and TR, trace AI, mildly dilated LA volume at 40.5 mL/m?. 08/2025 Echo showed dilated cardiomyopathy, dilated LV, severe systolic function, severe global hypokinesis, estimated EF 25 to 30%. Grade 2 diastolic dysfunction. Mild RV dilatation, mild RV systolic dysfunction, mild to moderate AV stenosis low gradient due to low EF, mean PG 12 to 14 mmHg by JE around 1.1 to 1.2 cm? which indicates at least moderate stenosis, mild MAC mild TR mild TR, trace AI and PI, mild dilated LA volume 52.2 mL/m?. No significant change from previous echo 03/15/2025 08/09/25 CXR shows mild enlargement cardiac contour, prominent vascular congestion and perihilar basilar edema, moderate left pleural fluid. 08/11/25 CXR shows prominent L base PNA Plan: - Continue IV Bumex 2 mg QD, goal of net 2-3L negative over 24h, CTM for contraction alkalosis and electrolyte abnormalities - If contraction alkalosis continues to worsen, hold Bumex and give acetazolamide 500 mg x1 - Continue Entresto 1 tab BID, add parameters to hold if SBP<90 as current BP are soft and anticipate further diuresis - Hold metoprolol and spironolactone iso soft BP and for anticipation of further diuresis - Strict I&Os, daily weights - Low sodium diet, 1.5L fluid restriction - CTM renal panel - Keep K>4 and Mg>2 at all times #Infrarenal abdominal aortic aneurysm, 3.3 cm #PAD s/p bilateral iliac artery stents #Significant narrowing of L common iliac artery stent CTAP on 06/24/2025 shows infrarenal abdominal aorta 3.3 cm small blood and 11 mm off the lateral margin of the infrarenal aorta. With bilateral iliac artery stents, significant narrowing of the left common iliac artery stent and healthy calcification of the common femoral arteries. On exam pedal pulses 1+ with diminished light touch sensation on dorsal aspect of bilateral feet. MONICO (05/01/2025): Right ankle/Brachial index 1.1 and Left ankle/Brachial index 1.1 Plan: - Continue Plavix 75 mg QD and ASA 81 mg QD - Continue to follow up outpatient for further management #History of NSVT On previous admission on 06/24/2025, patient was noted to have 1 episode of NSVT on 06/30/2025 and was started on amiodarone drip and later transition to oral amiodarone 200 mg twice daily. Telemetry reviewed and no arrhythmias noted. Plan: - Continue PO amiodarone 200 mg QD - Telemetry for cardiac monitoring #HTN #HLD On admission, BP 129/87 HR 94. Lipid panel cholesterol 98, triglycerides 54, LDL 50, HDL 37. Plan: - Continue home atorvastatin 80 mg Qhs - Continue Entresto 1 tab BID - Hold metoprolol and spironolactone as above, resume as BP tolerates #LLL PNA #L pleural fluid #Chronic smoking history, 30 pack years #Cirrhosis #Benign prostate hypertrophy #Normocytic normochromic anemia #Hepatitis C #COPD Plan: - Management per primary team Thank you for the consultation and allowing us to participate in patient's care. Plan of care discussed with attending Dr. Mcclelland, trimming department blocker Leandra Moss, DO PGY-1 Internal Medicine Attending Provider Attestation/Addendum I have personally seen and examined the patient separately on the above date of service and discussed the plan of care with the resident. I reviewed the resident Dr.Emily Moss consultation progress note and agree with the resident findings and plan in the note above and have also edited the documentation to reflect my findings and plan. Ernie Mcclelland M.D. Interventional Cardiology
--- NOTE | 2025-08-11 12:07 | PC.SS ---
SS follow up note; SS was contacted by Stanley from PT and he informed SS that patient was refusing SNF now and wanting to discharge home with HH. Stanley informed SS that patient was able to ambulate well with PT and is safe to discharge home. Patient has no preference in HH agency. Patient seen his PCP (GIRMA) about a Week ago, however does not remember the providers name. SS will update Dr. Sevilla.
[2025-08-11] MEDS: cefTRIAXone/D5w 1gm IV premix 1 GM/50 ML BAG IV (12:26)
--- NOTE | 2025-08-11 15:12 | PC.SS ---
Patient is currently receiving diuresis and is anticipated to be discharged within 1 day. Patient will discharge home with when medically cleared.
--- NOTE | 2025-08-11 17:11 | PC.PT ---
Patient is safe to ambulate to in the halls with a FWW, 1 staff, and a surgical mask due to his influenza precaution. RN made aware.
[2025-08-11] MEDS: ATORVASTATIN CALCIUM 20 MG TABLET 80 MG PO (20:29)
[2025-08-12] VITALS (12 sets, daily range): BP systolic 90–122; BP diastolic 59–81; PULSE 73–93; RESP 11–94; TEMP 36–36.6; O2SAT 93–99; BMI 31.6
[2025-08-12 06:00] LABS: Basophils # (Auto) 0.1 Thou/mm3 (0.0-0.2); Basophils % (Auto) 1 % (0-2.5); Eosinophils # (Auto) 0.3 Thou/mm3 (0.0-0.5); Eosinophils % (Auto) 4 % (0-10); Hematocrit 40.6 % (41.0-53.0); Hemoglobin 12.9 g/dL (13.5-16.0); Immature Granulocytes Auto 0.03 Thou/mm3 (0.00-0.00); Lymphocytes # (Auto) 1.0 Thou/mm3 (1.0-4.8); Lymphocytes % (Auto) 14 % (10-50); Mean Corpuscular HGB Conc 31.8 g/dl (31.0-37.0); Mean Corpuscular Hemoglobin 29.5 pg (25.0-35.0); Mean Corpuscular Volume 93 fL (80-100); Monocytes # (Auto) 0.7 Thou/mm3 (0.0-0.8); Monocytes % (Auto) 10 % (0-12); Neutrophils # (Auto) 5.1 Thou/mm3 (1.8-7.7); Neutrophils % (Auto) 71 % (37-80); Nucleated Red Blood Cell # 0.00 Thou/mm3 (0.00-0.00); Nucleated Red Blood Cell % 0 /100 WBC (0); Platelet Count 170 Thou/mm3 (140-440); RDW Standard Deviation 51.6 fL (35.1-43.9); Red Blood Count 4.37 Miln/mm3 (4.50-5.90); White Blood Count 7.2 Thou/mm3 (3.8-10.6)
[2025-08-12 06:35] LABS: Alanine Aminotransferase 39 U/L (10-49); Albumin, Serum 3.2 gm/dL (3.4-4.8); Albumin/Globulin Ratio 1.2 (1.2-2.2); Alkaline Phosphatase 102 U/L (46-116); Anion Gap 11 (7-16); Aspartate Amino Transferase 82 U/L (0-34); BUN/Creatinine Ratio 12 Ratio (12-20); Bilirubin,Total 0.8 mg/dL (0.3-1.2); Blood Urea Nitrogen 13 mg/dL (9-23); Calcium 8.6 mg/dL (8.3-10.6); Calcium (Corrected) 9.2 mg/dL (8.5-10.1); Carbon Dioxide 29.3 mMol/L (20.0-31.0); Chloride 100 mMol/L (98-107); Creatinine (Component) 1.1 mg/dL (0.6-1.3); Estimated Creatinine Clearance 86.3 mL/min (>60); Globulin 2.7 gm/dL (2.3-3.5); Glucose 89 mg/dL (74-106); Magnesium 2.2 mg/dL (1.6-2.6); Osmolality,Calculated 278 (275-295); Phosphorous 4.4 mg/dL (2.4-5.1); Potassium 4.4 mMol/L (3.4-5.1); Sodium 140 mMol/L (136-145); Total Protein 5.9 gm/dL (5.7-8.2); eGFR > 60 See Note
--- NOTE | 2025-08-12 07:40 | ESPR_ITS ---
<Statement entered by Yaz Menchaca MD - 08/12/25 14:16> Patient examined at bedside. No event overnight. Continue diuresis with IV Bumex 2 mg daily in setting of acute CHF exacerbation. Patient has urine output -3.4 L over 24 hours with net loss of 13kg since admission. Vitals are stable with blood pressure improving. Hemoglobin 12.9, creatinine 1.1 otherwise labs unremarkable. Patient states that he is feeling much better. Physical exam still shows 1?+2 pitting edema lower extremity. Plan for diuresis additional day anticipate discharge next 24 hours with physical therapy at home. Repeat BNP before discharge. Day 2 of IV Rocefin for treatment of pneumonia. The patient's management plan was discussed with my attending physician Dr. Sevilla. Yaz Menchaca, PGY-2 Documentation for date of: 08/12/25 Subjective Subjective Interval history: Mr. King is a 65-year-old male with past medical history of heart failure with reduced ejection fraction, EF 20-25% 03/2025, combined systolic and diastolic heart failure, mild to moderate AV stenosis, benign prostate hypertrophy, ?Cirrhosis, hepatitis C infection, infrarenal abdominal aortic aneurysm, peripheral arterial disease status post iliac stent (on asa and plavix), hyperlipidemia and former cocaine use and chronic smoker with 30 pack years who presented to [facility] emergency department with a chief complaint of bilateral lower extremity edema up to scrotum, admitted for acute congestive heart failure exacerbation and PA 08/10/2025: Patient seen and examined while in telemetry. He continues on IV diuresis with 2 mg IV Bumex, blood pressures have been soft hold parameters for Entresto systolic below 90, net -5200 cc today continues on 1500 fluid restriction weight today is 111 kg from 117 kg yesterday. Continues to have 2- 3+ lower extremity edema, scrotal edema is resolved 08/11/2025: Patient seen and examined while in telemetry. He continues on IV diuresis with 2 mg IV Bumex, blood pressures have been soft but stable he continues on Entresto (hold for systolic below 90). UOP 4100, weight 246. LE edema is improved. increased skin wrinkling around ankles. CXR with left lower pna started on ceftriaxone today. 08/12/2025: Patient seen and examined while in tele. He continues on iv diuresis, with 2 mg iv bumex, blood pressures have been soft but stable he continues on Entresto (hold for systolic below 90). UOP 4200, weight 246. LE edema is improved. increased skin wrinkling around ankles. continues on cxr for likely superimposed bacterial pna on LLL, dispo plan is for home with home health per pt request. will continue diuresis for 1-2 more days. Exam Vital Signs Temp Pulse Resp BP Pulse Ox O2 Del Method O2 Flow Rate 97.2 F 80 13 98/60 99 Nasal Cannula 2 08/12/25 04:00 08/12/25 04:00 08/12/25 04:00 08/12/25 04:00 08/12/25 04:00 08/12/25 04:00 08/12/25 04:00 Narrative Exam GENERAL: no acute distress, AAO x3, sitting at 45 degrees in bed HEENT: Head AT/ NC. Mucous membranes moist. PERRL. poor dentition NECK: Supple, no lymphadenopathy, no carotid bruits. CARDIOVASCULAR: RRR. Normal S1/S2, systolic murmor, 2+ pitting edema of bilateral LEs , RESPIRATORY:decreased breath sounds on L base with some trace crackles L>R GASTROINTESTINAL: obese, Abdomen soft, non tender no palpable masses. Bowel sounds present : sanders catheter in place, burried penis, MUSCULOSKELETAL:? No cyanosis or edema, no visible joint swelling. NEUROLOGICAL: CN II-XII grossly intact. No focal deficits. diminished sensation of BL feet, weak pedal pulses. PSYCHIATRIC: Awake and alert, not agitated, normal mood and affect. SKIN: ahsan stasis, L 2nd toe amputation, cool to touch, increased skin wrinkling around ankles and distal shins. Objective Labs 08/12/25 04:40 08/12/25 04:40 Labs: Laboratory Results - last 24 hr 08/12/25 04:40 WBC 7.2 RBC 4.37 L Hgb 12.9 L Hct 40.6 L MCV 93 MCH 29.5 MCHC 31.8 RDW Std Deviation 51.6 H Plt Count 170 Neut % (Auto) 71 Lymph % (Auto) 14 [place] % (Auto) 10 Eos % (Auto) 4 Baso % (Auto) 1 Neut # (Auto) 5.1 Lymph # (Auto) 1.0 [place] # (Auto) 0.7 Eos # (Auto) 0.3 Baso # (Auto) 0.1 Immature Gran # (Auto) 0.03 H Absolute Nucleated RBC 0.00 Immature Gran % 0 Nucleated RBC % 0 Sodium 140 Potassium 4.4 Chloride 100 Carbon Dioxide 29.3 Anion Gap 11 BUN 13 Creatinine 1.1 Estim Creat Clear Calc 86.3 eGFR > 60 BUN/Creatinine Ratio 12 Glucose 89 Calculated Osmolality 278 Calcium 8.6 Corrected Calcium 9.2 Phosphorus 4.4 Magnesium 2.2 Total Bilirubin 0.8 AST 82 H ALT 39 Alkaline Phosphatase 102 Total Protein 5.9 Albumin 3.2 L Globulin 2.7 Albumin/Globulin Ratio 1.2 Quality Measures Quality Measures VTE prophylaxis Assessment & Plan Assessment Current Active Medications: Generic Name Dose Route Start Last Admin Trade Name Freq PRN Reason Stop Dose Admin Acetaminophen 650 mg 08/06/25 15:21 Acetaminophen 325 Mg Tablet PO 09/05/25 15:20 Q6H PRN PAIN SCALE 1-3 (mild Amiodarone HCl 200 mg 08/10/25 09:00 08/11/25 08:27 Amiodarone Hcl 200 Mg Tablet PO 09/09/25 08:59 200 mg DAILY CHYNA Administration Aspirin 81 mg 08/07/25 09:00 08/11/25 08:27 Aspirin Ec 81 Mg Tabec PO 09/06/25 08:59 81 mg QDAY CHYNA Administration Atorvastatin Calcium 80 mg 08/07/25 21:00 08/11/25 20:29 Atorvastatin Calcium 20 Mg Tablet PO 09/06/25 20:59 80 mg QPM CHYNA Administration Bumetanide 2 mg 08/07/25 09:00 08/11/25 08:28 Bumetanide Inj 0.25 Mg/Ml Vial 4 Ml IVP 09/06/25 08:59 2 mg QDAY CHYNA Administration Clopidogrel Bisulfate 75 mg 08/07/25 09:00 08/11/25 08:27 Clopidogrel Bisulfate 75 Mg Tablet PO 09/06/25 08:59 75 mg QDAY CHYNA Administration Docusate Sodium 100 mg 08/08/25 09:00 08/11/25 20:31 Docusate Sod 100 Mg Capsule PO 09/07/25 08:59 Not Given BID [facility] Protocol Heparin Sodium (Porcine) 5,000 unit 08/06/25 21:00 08/11/25 20:28 Heparin Sod Inj 5000 Unit/Ml Vial SC 08/20/25 20:59 5,000 unit Q12HR CHYNA Administration Ceftriaxone Sodium/Dextrose 1 gm in 50 mls @ 100 mls/hr 08/11/25 12:09 08/11/25 12:26 Rocephin/D5w 1gm Iv Premix IV 08/18/25 12:08 100 mls/hr QDAY CHYNA Administration Lactulose 20 gm 08/07/25 09:00 08/11/25 08:35 Lactulose Syrup 20 Gm/30 Ml Udc PO 09/06/25 08:59 20 gm QDAY CHYNA Administration Protocol Ondansetron HCl 4 mg 08/06/25 15:21 Ondansetron Inj 2 Mg/Ml Inj 2 Ml IVP 09/05/25 15:20 Q6H PRN NAUSEA OR VOMITING Protocol Pantoprazole Sodium 40 mg 08/07/25 09:00 08/11/25 08:27 Pantoprazole 40 Mg Tablet PO 09/06/25 08:59 40 mg QDAY CHYNA Administration Sacubitril/Valsartan 1 tab 08/10/25 18:21 08/11/25 20:30 Sacubitril 24 Mg/Valsartan 26 Mg Tablet PO 09/06/25 08:59 1 tab BID CHYNA Administration Sennosides 1 tab 08/08/25 09:00 08/11/25 08:35 Senna Tablet PO 09/07/25 08:59 1 tab QDAY CHYNA Administration Protocol Tamsulosin HCl 0.4 mg 08/07/25 09:00 08/11/25 08:26 Tamsulosin Hcl 0.4 Mg Capsule PO 09/06/25 08:59 0.4 mg QDAY CHYNA Administration Plan Mr. King is a 65-year-old male with past medical history of heart failure with reduced ejection fraction, EF 20-25% 03/2025, combined systolic and diastolic heart failure, mild to moderate AV stenosis, benign prostate hypertrophy, ?Cirrhosis, hepatitis C infection, infrarenal abdominal aortic aneurysm, peripheral arterial disease status post iliac stent (on asa and plavix), hyperlipidemia and former cocaine use and chronic smoker with 30 pack years who presented to [facility] emergency department with a chief complaint of bilateral lower extremity edema up to scrotum, admitted for acute congestive heart failure exacerbation and PA. Continue with diuresis. cont on abx for L lobar pneumonia. #Acute CHF exacerbation with - improving #HFrEF, EF 25-30% #NYHA class III Most likely that patient's recurrent acute CHF exacerbations are secondary to high sodium diet given his limited ability to ambulate he relies heavily on TV dinners. He is compliant with his diuretic medications but continues to have significant lower extremity edema. Patient follow with cardiology Dr. Mcclelland with last visit being earlier this month. Patient stated that recent dose change was made to Bumex from 1 mg p.o. to 2 mg p.o. daily. But since past couple of days he has been endorsing worsening shortness of breath difficulty walking short distances around his apartment. Complains of worsening swelling, coughing, shortness of breath. Volume Overload, BNP >3200, severe edema to the scrotum, and crackles on auscultation bilaterally. 230 Dry weight (pt states that he now weighs about 275) At home, patient is on GDMT of metoprolol XL 25 mg QD, Entresto 1 tablet BID, spironolactone 25 mg QD. EKG showed sinus rhythm HR 90 with QTC 474 with left axis deviation. - Continue IV Bumex 2 mg QD, goal of net 2-3L negative over 24h, CTM for contraction alkalosis and electrolyte abnormalities - If contraction alkalosis continues to worsen, hold Bumex and give acetazolamide 500 mg x1 - Continue Entresto 1 tab BID (hold if sbp<90) - Hold metoprolol and spironolactone iso soft BP and for anticipation of further diuresis - echocardiogram EF 25-30% Dilated Cardiomyopathy, Dilated LV, Severey systolic dysfunction. Severe global hypokinesis - Strict I&Os, daily weights - Low sodium diet, 1.5L fluid restriction - CTM renal panel - Keep K>4 and Mg>2 at all times - net negative 4200 cc - weight: 246 lbs --> 239 lbs #CAP #Influenza positive CXR with c/f LLL pneumonia, pt has wet cough - start abx ceftriaxone (08/11- - plan to discharge with 4 days of azithro 250 qd and amox clauvulante 875 BID . - Tamiflu 75 mg twice daily, (08/06-08/11) #Small L pleural effusion effusion noted on CXR, too small to do thora - cont diuresis. #PA 2/2 cardiorenal syndrome- resolved Cr on admission 1.6 with baseline of 0.8-1 likely 2/2 to cardiorenal syndrome with acute exacerbation and fluid overload. Cr 1.1 -maintenance fluids -avoid nephrotoxic agents -daily CMP #Infrarenal abdominal aortic aneurysm, 3.3 cm #PAD s/p bilateral iliac artery stents #Significant narrowing of L common iliac artery stent CTAP on 06/24/2025 shows infrarenal abdominal aorta 3.3 cm small blood and 11 mm off the lateral margin of the infrarenal aorta. With bilateral iliac artery stents, significant narrowing of the left common iliac artery stent and healthy calcification of the common femoral arteries. On exam pedal pulses 1+ with diminished light touch sensation on dorsal aspect of bilateral feet. MONICO (05/01/2025): Right ankle/Brachial index 1.1 and Left ankle/Brachial index 1.1 - Continue Plavix 75 mg QD and ASA 81 mg QD - Continue to follow up outpatient for further management #History of NSVT On previous admission on 06/24/2025, patient was noted to have 1 episode of NSVT on 06/30/2025 and was started on amiodarone drip and later transition to oral amiodarone 200 mg twice daily. Telemetry reviewed and no arrhythmias noted. - Continue PO amiodarone 200 mg QD - Telemetry for cardiac monitoring #HTN #HLD On admission, BP 129/87 HR 94. Lipid panel cholesterol 98, triglycerides 54, LDL 50, HDL 37. - Continue home atorvastatin 80 mg Qhs - Continue Entresto 1 tab BID (hold if bp<90) - Hold metoprolol and spironolactone as above, resume as BP tolerates #COPD Patient does use oxgyen at home. Denies exacerbation in some time. -breathing treatments as needed -cont pulse ox -cont diuresing BPH - cont tamsulosin 0.4 mg qd HLD - atorvastatin 80 qhs Chronic smoking history, 30 pack years Not an active smoker currently, history of 30 pack years, no lung nodules/lymphadenopathy noted on CTA - Outpatient screening including CT chest, AAA screening >65 Health maintenance: Dispo: tele, actue CHF exacerbation, diureses, PT therapy reccommends SNF however pt requests home with home health, give abx for LLL pneumonia. FEN: cardic DVT prophylaxis: Subcu heparin CODE STATUS: Full code Plan discussed with Dr. Menchaca and Dr. Roel Dooley MD PGY1 Attending Provider Attestation/Addendum I have discussed and was present for the essential components of the history, physical examination, diagnosis, and treatment plan with the resident. I agree with the patient's care as documented by the resident and amended herein by me. Jorge Luis Sevilla DO. Although this document has been carefully reviewed, there may still be some phonetic and other typographical errors. These errors are purely grammatical due to imperfections in the software program and should not be construed in any way to compromise the substance of the patient's medical care during this visit. Patient seen and evaluated in the morning, no acute events overnight, vital signs stable, patient afebrile, labs largely unremarkable with exception of slightly elevated bicarb likely from his extensive diuresis. I/O 850/4200 mL we will continue to diurese with Bumex 2 mg twice daily. Patient is not quite ready to be discharged yet I would expect 1-2 more days of diuresis before the patient is optimized to be discharged. Cardiology consulted, appreciate additional recommendations.
[2025-08-12] MEDS: PANTOPRAZOLE 40 MG TABLET PO (08:06)
[2025-08-12] MEDS: LACTULOSE SYRUP 20 GM/30 ML UDC PO (08:06)
[2025-08-12] MEDS: cefTRIAXone/D5w 1gm IV premix 1 GM/50 ML BAG IV (08:07)
[2025-08-12] MEDS: DOCUSATE SOD 100 MG CAPSULE PO (08:09)
[2025-08-12] MEDS: TAMSULOSIN HCL 0.4 MG CAPSULE PO (08:09)
[2025-08-12] MEDS: ASPIRIN EC 81 MG TABEC PO (08:09)
[2025-08-12] MEDS: CLOPIDOGREL BISULFATE 75 MG TABLET PO (08:09)
[2025-08-12] MEDS: AMIODARONE HCL 200 MG TABLET PO (08:10)
[2025-08-12] MEDS: BUMETANIDE INJ 0.25 MG/ML VIAL 4 ML 2 MG IVP ×2 (08:11→16:15)
[2025-08-12] MEDS: HEPARIN SOD INJ 5000 UNIT/ML VIAL SC ×2 (08:11→21:39)
--- NOTE | 2025-08-12 12:51 | PD.RESPRO ---
Documentation for date of: 08/12/25 Subjective Subjective Interval history: Patient seen and examined at bedside. Telemetry reviewed, no arrythmias noted. Vitals and labs reviewed. Patient is feeling well today. Reports intermittent shortness of breath, able to occasionally be off oxygen, however continues to require. BLE still sore, scrotum still uncomfortably swollen however improved from admission. 24h net output -3.4. Total output since admission negative 26L. K 4.4, bicarb decreased from 31 to 29. Cr stable 1.1. Mg 2.2. Exam Vital Signs Temp Pulse Resp BP Pulse Ox O2 Del Method O2 Flow Rate 96.9 F 73 18 102/67 95 Room Air 2 08/12/25 12:00 08/12/25 12:05 08/12/25 12:05 08/12/25 12:00 08/12/25 12:05 08/12/25 12:00 08/12/25 08:00 Narrative Exam GENERAL: AOx3, sitting up comfortably in bed HEENT: NC/AT, mucous membranes moist, bilateral sclera anicteric CARDIOVASCULAR: regular rate and rhythm, S1/S2 present, 4/6 harsh systolic murmur PULMONARY: R lung CTA, L base diminished breath sounds, no crackles ABDOMINAL: soft, non-tender, non-distended,no rebound/guarding, bowel sounds present EXTREMITIES: BLE 3+ pitting edema up to scrotum including scrotum, decreased sensation of bilateral dorsum of feet, diminished 1+ pedal pulses SKIN: venous stasis dermatitis, flaky bilateral feet, 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 NEURO: CN II-XII grossly intact, no focal deficits, alert, following commands Objective Labs 08/14/25 04:45 08/14/25 04:45 Labs: Laboratory Results - last 24 hr 08/12/25 04:40 WBC 7.2 RBC 4.37 L Hgb 12.9 L Hct 40.6 L MCV 93 MCH 29.5 MCHC 31.8 RDW Std Deviation 51.6 H Plt Count 170 Neut % (Auto) 71 Lymph % (Auto) 14 [place] % (Auto) 10 Eos % (Auto) 4 Baso % (Auto) 1 Neut # (Auto) 5.1 Lymph # (Auto) 1.0 [place] # (Auto) 0.7 Eos # (Auto) 0.3 Baso # (Auto) 0.1 Immature Gran # (Auto) 0.03 H Absolute Nucleated RBC 0.00 Immature Gran % 0 Nucleated RBC % 0 Sodium 140 Potassium 4.4 Chloride 100 Carbon Dioxide 29.3 Anion Gap 11 BUN 13 Creatinine 1.1 Estim Creat Clear Calc 86.3 eGFR > 60 BUN/Creatinine Ratio 12 Glucose 89 Calculated Osmolality 278 Calcium 8.6 Corrected Calcium 9.2 Phosphorus 4.4 Magnesium 2.2 Total Bilirubin 0.8 AST 82 H ALT 39 Alkaline Phosphatase 102 Total Protein 5.9 Albumin 3.2 L Globulin 2.7 Albumin/Globulin Ratio 1.2 Quality Measures Quality Measures VTE prophylaxis Assessment & Plan Assessment Current Active Medications: Generic Name Dose Route Start Last Admin Trade Name Freq PRN Reason Stop Dose Admin Acetaminophen 650 mg 08/06/25 15:21 Acetaminophen 325 Mg Tablet PO 09/05/25 15:20 Q6H PRN PAIN SCALE 1-3 (mild Amiodarone HCl 200 mg 08/10/25 09:00 08/12/25 08:10 Amiodarone Hcl 200 Mg Tablet PO 09/09/25 08:59 200 mg DAILY CHYNA Administration Aspirin 81 mg 08/07/25 09:00 08/12/25 08:09 Aspirin Ec 81 Mg Tabec PO 09/06/25 08:59 81 mg QDAY CHYNA Administration Atorvastatin Calcium 80 mg 08/07/25 21:00 08/11/25 20:29 Atorvastatin Calcium 20 Mg Tablet PO 09/06/25 20:59 80 mg QPM CHYNA Administration Bumetanide 2 mg 08/07/25 09:00 08/12/25 08:11 Bumetanide Inj 0.25 Mg/Ml Vial 4 Ml IVP 09/06/25 08:59 2 mg QDAY CHYNA Administration Clopidogrel Bisulfate 75 mg 08/07/25 09:00 08/12/25 08:09 Clopidogrel Bisulfate 75 Mg Tablet PO 09/06/25 08:59 75 mg QDAY CHYNA Administration Docusate Sodium 100 mg 08/08/25 09:00 08/12/25 08:09 Docusate Sod 100 Mg Capsule PO 09/07/25 08:59 100 mg BID CHYNA Administration Protocol Heparin Sodium (Porcine) 5,000 unit 08/06/25 21:00 08/12/25 08:11 Heparin Sod Inj 5000 Unit/Ml Vial SC 08/20/25 20:59 5,000 unit Q12HR CHYNA Administration Ceftriaxone Sodium/Dextrose 1 gm in 50 mls @ 100 mls/hr 08/11/25 12:09 08/12/25 08:07 Rocephin/D5w 1gm Iv Premix IV 08/18/25 12:08 100 mls/hr QDAY CHYNA Administration Lactulose 20 gm 08/07/25 09:00 08/12/25 08:06 Lactulose Syrup 20 Gm/30 Ml Udc PO 09/06/25 08:59 20 gm QDAY CHYNA Administration Protocol Ondansetron HCl 4 mg 08/06/25 15:21 Ondansetron Inj 2 Mg/Ml Inj 2 Ml IVP 09/05/25 15:20 Q6H PRN NAUSEA OR VOMITING Protocol Pantoprazole Sodium 40 mg 08/07/25 09:00 08/12/25 08:06 Pantoprazole 40 Mg Tablet PO 09/06/25 08:59 40 mg QDAY CHYNA Administration Sacubitril/Valsartan 1 tab 08/10/25 18:21 08/12/25 08:09 Sacubitril 24 Mg/Valsartan 26 Mg Tablet PO 09/06/25 08:59 1 tab BID CHYNA Administration Sennosides 1 tab 08/08/25 09:00 08/12/25 08:08 Senna Tablet PO 09/07/25 08:59 1 tab QDAY CHYNA Administration Protocol Tamsulosin HCl 0.4 mg 08/07/25 09:00 08/12/25 08:09 Tamsulosin Hcl 0.4 Mg Capsule PO 09/06/25 08:59 0.4 mg QDAY CHYNA Administration Plan [place] 65M pmhx significant for HFrEF (20-25% 03/2025), low-flow moderate AV stenosis, HTN, HLD, infrarenal abdominal aortic aneurysm, PAD s/p iliac stent, former cocaine use, chronic smoker, BPH, cirrhosis and Hepatitis C infection who presents with worsening BLE edema, admitted for acute on chronic heart failure. Cardiology consulted for further management. #Acute on chronic HFrEF, EF 20-25% 03/2025, NYHA Class III #PA 2/2 cardiorenal syndrome #Combined systolic and diastolic heart failure #Low Flow Moderate AV stenosis Patient presented with worsening bilateral lower extremity edema, recently saw roof plumber and Bumex was increased to 2 mg daily from 1 mg daily. However swelling persisted and worsened with associated worsening dyspnea on exertion and SOB while speaking prompting current hospitalization. Admission BNP >3820 with negative troponins. At home, patient is on GDMT of metoprolol XL 25 mg QD, Entresto 1 tablet BID, spironolactone 25 mg QD. Patient admits to not taking medication consistently. EKG showed sinus rhythm HR 90 with QTC 474 with left axis deviation. Cr on admission 1.6 with baseline of 0.8-1 likely 2/2 to cardiorenal syndrome with acute exacerbation and fluid overload. 03/2025 Echo showed dilated cardiomyopathy, dilated LV, severe systolic expression, severe global hypokinesis, estimated EF 20 to 30%, grade 2 diastolic dysfunction, mild RV dilatation, mild RV systolic dysfunction, mild to moderate AV stenosis, low gradient due to low EF, mean PG 12-14 mmHg but JE around 1.1 to 1.2 cm? which indicates at least moderate stenosis, mild MAC, mild MR and TR, trace AI, mildly dilated LA volume at 40.5 mL/m?. 08/2025 Echo showed dilated cardiomyopathy, dilated LV, severe systolic function, severe global hypokinesis, estimated EF 25 to 30%. Grade 2 diastolic dysfunction. Mild RV dilatation, mild RV systolic dysfunction, mild to moderate AV stenosis low gradient due to low EF, mean PG 12 to 14 mmHg by JE around 1.1 to 1.2 cm? which indicates at least moderate stenosis, mild MAC mild TR mild TR, trace AI and PI, mild dilated LA volume 52.2 mL/m?. No significant change from previous echo 03/15/2025 08/09/25 CXR shows mild enlargement cardiac contour, prominent vascular congestion and perihilar basilar edema, moderate left pleural fluid. 08/11/25 CXR shows prominent L base PNA Plan: - Continue IV Bumex 2 mg QD, goal of net 2-3L negative over 24h, CTM for contraction alkalosis and electrolyte abnormalities - IV Bumex 2 mg x1 today due to continued significant scrotal and leg edema despite 4L of fluid removed a day; CTM renal panel - If contraction alkalosis recurrs, hold Bumex and give acetazolamide 500 mg x1 - Continue Entresto 1 tab BID, parameters to hold if SBP<90 as current BP are soft and anticipate further diuresis - Plan to reassess EF following 3 months of GDMT - Extensively discussed adherence to medication regimen - Hold metoprolol and spironolactone iso soft BP and for anticipation of further diuresis - Strict I&Os, daily weights - Low sodium diet, 1.5L fluid restriction - CTM renal panel - Keep K>4 and Mg>2 at all times #Infrarenal abdominal aortic aneurysm, 3.3 cm #PAD s/p bilateral iliac artery stents #Significant narrowing of L common iliac artery stent CTAP on 06/24/2025 shows infrarenal abdominal aorta 3.3 cm small blood and 11 mm off the lateral margin of the infrarenal aorta. With bilateral iliac artery stents, significant narrowing of the left common iliac artery stent and healthy calcification of the common femoral arteries. On exam pedal pulses 1+ with diminished light touch sensation on dorsal aspect of bilateral feet. MONICO (05/01/2025): Right ankle/Brachial index 1.1 and Left ankle/Brachial index 1.1 Plan: - Continue Plavix 75 mg QD and ASA 81 mg QD - Continue to follow up outpatient for further management #History of NSVT On previous admission on 06/24/2025, patient was noted to have 1 episode of NSVT on 06/30/2025 and was started on amiodarone drip and later transition to oral amiodarone 200 mg twice daily. Telemetry reviewed and no arrhythmias noted. Plan: - Continue PO amiodarone 200 mg QD - Telemetry for cardiac monitoring #HTN #HLD On admission, BP 129/87 HR 94. Lipid panel cholesterol 98, triglycerides 54, LDL 50, HDL 37. Plan: - Continue home atorvastatin 80 mg Qhs - Continue Entresto 1 tab BID - Hold metoprolol and spironolactone as above, resume as BP tolerates #LLL PNA #L pleural fluid #Chronic smoking history, 30 pack years #Cirrhosis #Benign prostate hypertrophy #Normocytic normochromic anemia #Hepatitis C #COPD Plan: - Management per primary team Thank you for the consultation and allowing us to participate in patient's care. Plan of care discussed with attending Dr. Mcclelland, instructional services specialist Leandra Moss, DO PGY-1 Internal Medicine Attending Provider Attestation/Addendum I have personally seen and examined the patient separately on the above date of service and discussed the plan of care with the resident. I reviewed the resident Dr. Leandra Moss consultation progress note and agree with the resident findings and plan in the note above and have also edited the documentation to reflect my findings and plan. Ernie Mcclelland M.D. Interventional Cardiology
--- NOTE | 2025-08-12 14:55 | PC.SS ---
Rounding: One more day of diuresis, poss dc tomorrow home with HH
[2025-08-12] MEDS: ACETAMINOPHEN 325 MG TABLET 650 MG PO (16:23)
[2025-08-12] MEDS: ATORVASTATIN CALCIUM 20 MG TABLET 80 MG PO (21:39)
[2025-08-13] VITALS (16 sets, daily range): BP systolic 86–103; BP diastolic 56–69; PULSE 72–97; RESP 18–97; TEMP 36.1–36.9; O2SAT 93–97; BMI 31.6
[2025-08-13 08:26] LABS: Basophils # (Auto) 0.1 Thou/mm3 (0.0-0.2); Basophils % (Auto) 1 % (0-2.5); Eosinophils # (Auto) 0.3 Thou/mm3 (0.0-0.5); Eosinophils % (Auto) 4 % (0-10); Hematocrit 43.2 % (41.0-53.0); Hemoglobin 13.7 g/dL (13.5-16.0); Immature Granulocytes Auto 0.04 Thou/mm3 (0.00-0.00); Lymphocytes # (Auto) 0.9 Thou/mm3 (1.0-4.8); Lymphocytes % (Auto) 13 % (10-50); Mean Corpuscular HGB Conc 31.7 g/dl (31.0-37.0); Mean Corpuscular Hemoglobin 28.9 pg (25.0-35.0); Mean Corpuscular Volume 91 fL (80-100); Monocytes # (Auto) 0.4 Thou/mm3 (0.0-0.8); Monocytes % (Auto) 6 % (0-12); Neutrophils # (Auto) 5.2 Thou/mm3 (1.8-7.7); Neutrophils % (Auto) 76 % (37-80); Nucleated Red Blood Cell # 0.00 Thou/mm3 (0.00-0.00); Nucleated Red Blood Cell % 0 /100 WBC (0); Platelet Count 186 Thou/mm3 (140-440); RDW Standard Deviation 50.4 fL (35.1-43.9); Red Blood Count 4.74 Miln/mm3 (4.50-5.90); White Blood Count 6.9 Thou/mm3 (3.8-10.6)
[2025-08-13] MEDS: LACTULOSE SYRUP 20 GM/30 ML UDC PO (08:55)
[2025-08-13] MEDS: ASPIRIN EC 81 MG TABEC PO (08:56)
[2025-08-13] MEDS: AMIODARONE HCL 200 MG TABLET PO (08:56)
[2025-08-13] MEDS: PANTOPRAZOLE 40 MG TABLET PO (08:56)
[2025-08-13] MEDS: TAMSULOSIN HCL 0.4 MG CAPSULE PO (08:56)
[2025-08-13] MEDS: CLOPIDOGREL BISULFATE 75 MG TABLET PO (08:56)
[2025-08-13] MEDS: DOCUSATE SOD 100 MG CAPSULE PO (08:56)
[2025-08-13] MEDS: cefTRIAXone/D5w 1gm IV premix 1 GM/50 ML BAG IV (08:57)
[2025-08-13] MEDS: HEPARIN SOD INJ 5000 UNIT/ML VIAL SC ×2 (08:58→20:47)
[2025-08-13] MEDS: BUMETANIDE INJ 0.25 MG/ML VIAL 4 ML 2 MG IVP (08:58)
[2025-08-13 09:07] LABS: Alanine Aminotransferase 53 U/L (10-49); Albumin, Serum 3.6 gm/dL (3.4-4.8); Albumin/Globulin Ratio 1.3 (1.2-2.2); Alkaline Phosphatase 117 U/L (46-116); Anion Gap 9 (7-16); Aspartate Amino Transferase 100 U/L (0-34); BUN/Creatinine Ratio 13 Ratio (12-20); Bilirubin,Total 0.8 mg/dL (0.3-1.2); Blood Urea Nitrogen 15 mg/dL (9-23); Calcium 8.9 mg/dL (8.3-10.6); Calcium (Corrected) 9.2 mg/dL (8.5-10.1); Carbon Dioxide 31.6 mMol/L (20.0-31.0); Chloride 98 mMol/L (98-107); Creatinine (Component) 1.2 mg/dL (0.6-1.3); Estimated Creatinine Clearance 79.1 mL/min (>60); Globulin 2.8 gm/dL (2.3-3.5); Glucose 154 mg/dL (74-106); Magnesium 2.0 mg/dL (1.6-2.6); Osmolality,Calculated 281 (275-295); Phosphorous 3.8 mg/dL (2.4-5.1); Potassium 3.8 mMol/L (3.4-5.1); Sodium 139 mMol/L (136-145); Total Protein 6.4 gm/dL (5.7-8.2); eGFR > 60 See Note
--- NOTE | 2025-08-13 10:38 | ESPR_ITS ---
Documentation for date of: 08/13/25 Subjective Subjective Interval history: Patient seen and examined at bedside. Telemetry reviewed, sinus rhythm rate 70s to 80s. Vitals and labs reviewed. Blood pressure 90s to low 100s over 60s. Saturating 97% room air, that 24-hour output -2.8 L, total 24-hour output -3.9 L. Patient is feeling a lot better today, endorses now does not want to go to a long-term and wants to go home however is amenable to perhaps short-term long-term stay. Endorses that leg swelling has significantly decreased as well as scrotum swelling. Occasionally does still feel short of breath during conversation. Patient denies chest pain, chest pressure, lightheadedness, dizziness, palpitations or nausea vomiting. Potassium 3.8 bicarb increased from 29 to 31. Creatinine stable 1.2. Magnesium 2.0. Of significance, AST/ALT increased from 82/39 to 100/53. Exam Vital Signs Temp Pulse Resp BP Pulse Ox O2 Del Method O2 Flow Rate 97.5 F 75 22 H 102/64 97 Room Air 2 08/13/25 07:41 08/13/25 08:58 08/13/25 07:41 08/13/25 08:58 08/13/25 07:41 08/13/25 07:41 08/13/25 03:42 Narrative Exam GENERAL: AOx3, sitting up comfortably in bed HEENT: NC/AT, mucous membranes moist, bilateral sclera anicteric CARDIOVASCULAR: regular rate and rhythm, S1/S2 present, 4/6 harsh systolic murmur PULMONARY: R lung CTA, L base diminished breath sounds, no crackles ABDOMINAL: soft, non-tender, non-distended,no rebound/guarding, bowel sounds present EXTREMITIES: BLE 3+ pitting edema up to scrotum including scrotum, decreased sensation of bilateral dorsum of feet, diminished 1+ pedal pulses SKIN: venous stasis dermatitis, flaky bilateral feet, 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 NEURO: CN II-XII grossly intact, no focal deficits, alert, following commands Objective Labs 08/14/25 04:45 08/14/25 04:45 Labs: Laboratory Results - last 24 hr 08/13/25 08:15 WBC 6.9 RBC 4.74 Hgb 13.7 Hct 43.2 MCV 91 MCH 28.9 MCHC 31.7 RDW Std Deviation 50.4 H Plt Count 186 Neut % (Auto) 76 Lymph % (Auto) 13 [place] % (Auto) 6 Eos % (Auto) 4 Baso % (Auto) 1 Neut # (Auto) 5.2 Lymph # (Auto) 0.9 L [place] # (Auto) 0.4 Eos # (Auto) 0.3 Baso # (Auto) 0.1 Immature Gran # (Auto) 0.04 H Absolute Nucleated RBC 0.00 Immature Gran % 1 H Nucleated RBC % 0 Sodium 139 Potassium 3.8 D Chloride 98 Carbon Dioxide 31.6 H Anion Gap 9 BUN 15 Creatinine 1.2 Estim Creat Clear Calc 79.1 eGFR > 60 BUN/Creatinine Ratio 13 Glucose 154 H D Calculated Osmolality 281 Calcium 8.9 Corrected Calcium 9.2 Phosphorus 3.8 Magnesium 2.0 Total Bilirubin 0.8 AST 100 H ALT 53 H Alkaline Phosphatase 117 H Total Protein 6.4 Albumin 3.6 Globulin 2.8 Albumin/Globulin Ratio 1.3 Quality Measures Quality Measures VTE prophylaxis Assessment & Plan Assessment Current Active Medications: Generic Name Dose Route Start Last Admin Trade Name Freq PRN Reason Stop Dose Admin Acetaminophen 650 mg 08/06/25 15:21 08/12/25 16:23 Acetaminophen 325 Mg Tablet PO 09/05/25 15:20 650 mg Q6H PRN Administration PAIN SCALE 1-3 (mild Amiodarone HCl 200 mg 08/10/25 09:00 08/13/25 08:56 Amiodarone Hcl 200 Mg Tablet PO 09/09/25 08:59 200 mg DAILY CHYNA Administration Aspirin 81 mg 08/07/25 09:00 08/13/25 08:56 Aspirin Ec 81 Mg Tabec PO 09/06/25 08:59 81 mg QDAY CHYNA Administration Atorvastatin Calcium 80 mg 08/07/25 21:00 08/12/25 21:39 Atorvastatin Calcium 20 Mg Tablet PO 09/06/25 20:59 80 mg QPM CHYNA Administration Bumetanide 2 mg 08/14/25 09:00 Bumetanide 0.5 Mg Tablet PO 09/13/25 08:59 QDAY CHYNA Clopidogrel Bisulfate 75 mg 08/07/25 09:00 08/13/25 08:56 Clopidogrel Bisulfate 75 Mg Tablet PO 09/06/25 08:59 75 mg QDAY CHYNA Administration Docusate Sodium 100 mg 08/08/25 09:00 08/13/25 08:56 Docusate Sod 100 Mg Capsule PO 09/07/25 08:59 100 mg BID CHYNA Administration Protocol Heparin Sodium (Porcine) 5,000 unit 08/06/25 21:00 08/13/25 08:58 Heparin Sod Inj 5000 Unit/Ml Vial SC 08/20/25 20:59 5,000 unit Q12HR CHYNA Administration Ceftriaxone Sodium/Dextrose 1 gm in 50 mls @ 100 mls/hr 08/11/25 12:09 08/13/25 08:57 Rocephin/D5w 1gm Iv Premix IV 08/18/25 12:08 100 mls/hr QDAY CHYNA Administration Lactulose 20 gm 08/07/25 09:00 08/13/25 08:55 Lactulose Syrup 20 Gm/30 Ml Udc PO 09/06/25 08:59 20 gm QDAY CHYNA Administration Protocol Ondansetron HCl 4 mg 08/06/25 15:21 Ondansetron Inj 2 Mg/Ml Inj 2 Ml IVP 09/05/25 15:20 Q6H PRN NAUSEA OR VOMITING Protocol Pantoprazole Sodium 40 mg 08/07/25 09:00 08/13/25 08:56 Pantoprazole 40 Mg Tablet PO 09/06/25 08:59 40 mg QDAY CHYNA Administration Sacubitril/Valsartan 1 tab 08/10/25 18:21 08/13/25 08:56 Sacubitril 24 Mg/Valsartan 26 Mg Tablet PO 09/06/25 08:59 1 tab BID CHYNA Administration Sennosides 1 tab 08/08/25 09:00 08/13/25 08:56 Senna Tablet PO 09/07/25 08:59 1 tab QDAY CHYNA Administration Protocol Tamsulosin HCl 0.4 mg 08/07/25 09:00 08/13/25 08:56 Tamsulosin Hcl 0.4 Mg Capsule PO 09/06/25 08:59 0.4 mg QDAY CHYNA Administration Plan [place] 65M pmhx significant for HFrEF (20-25% 03/2025), low-flow moderate AV stenosis, HTN, HLD, infrarenal abdominal aortic aneurysm, PAD s/p iliac stent, former cocaine use, chronic smoker, BPH, cirrhosis and Hepatitis C infection who presents with worsening BLE edema, admitted for acute on chronic heart failure. Cardiology consulted for further management. #Acute on chronic HFrEF, EF 20-25% 03/2025, NYHA Class III #PA 2/2 cardiorenal syndrome #Combined systolic and diastolic heart failure #Low Flow Moderate AV stenosis Patient presented with worsening bilateral lower extremity edema, recently saw anthropological linguist and Bumex was increased to 2 mg daily from 1 mg daily. However swelling persisted and worsened with associated worsening dyspnea on exertion and SOB while speaking prompting current hospitalization. Admission BNP >3820 with negative troponins. At home, patient is on GDMT of metoprolol XL 25 mg QD, Entresto 1 tablet BID, spironolactone 25 mg QD. Patient admits to not taking medication consistently. EKG showed sinus rhythm HR 90 with QTC 474 with left axis deviation. Cr on admission 1.6 with baseline of 0.8-1 likely 2/2 to cardiorenal syndrome with acute exacerbation and fluid overload. 03/2025 Echo showed dilated cardiomyopathy, dilated LV, severe systolic expression, severe global hypokinesis, estimated EF 20 to 30%, grade 2 diastolic dysfunction, mild RV dilatation, mild RV systolic dysfunction, mild to moderate AV stenosis, low gradient due to low EF, mean PG 12-14 mmHg but JE around 1.1 to 1.2 cm? which indicates at least moderate stenosis, mild MAC, mild MR and TR, trace AI, mildly dilated LA volume at 40.5 mL/m?. 08/2025 Echo showed dilated cardiomyopathy, dilated LV, severe systolic function, severe global hypokinesis, estimated EF 25 to 30%. Grade 2 diastolic dysfunction. Mild RV dilatation, mild RV systolic dysfunction, mild to moderate AV stenosis low gradient due to low EF, mean PG 12 to 14 mmHg by JE around 1.1 to 1.2 cm? which indicates at least moderate stenosis, mild MAC mild TR mild TR, trace AI and PI, mild dilated LA volume 52.2 mL/m?. No significant change from previous echo 03/15/2025 08/09/25 CXR shows mild enlargement cardiac contour, prominent vascular congestion and perihilar basilar edema, moderate left pleural fluid. 08/11/25 CXR shows prominent L base PNA Plan: - Continue IV Bumex 2 mg QD, goal of net 2-3L negative over 24h, CTM for contraction alkalosis and electrolyte abnormalities - If contraction alkalosis recurrs, hold Bumex and give acetazolamide 500 mg x1 - Continue Entresto 1 tab BID, parameters to hold if SBP<90 as current BP are soft and anticipate further diuresis - Plan to reassess EF following 3 months of GDMT - Extensively discussed adherence to medication regimen - Hold metoprolol and spironolactone iso soft BP and for anticipation of further diuresis - Strict I&Os, daily weights - Low sodium diet, 1.5L fluid restriction - CTM renal panel - Keep K>4 and Mg>2 at all times #Infrarenal abdominal aortic aneurysm, 3.3 cm #PAD s/p bilateral iliac artery stents #Significant narrowing of L common iliac artery stent CTAP on 06/24/2025 shows infrarenal abdominal aorta 3.3 cm small blood and 11 mm off the lateral margin of the infrarenal aorta. With bilateral iliac artery stents, significant narrowing of the left common iliac artery stent and healthy calcification of the common femoral arteries. On exam pedal pulses 1+ with diminished light touch sensation on dorsal aspect of bilateral feet. MONICO (05/01/2025): Right ankle/Brachial index 1.1 and Left ankle/Brachial index 1.1 Plan: - Continue Plavix 75 mg QD and ASA 81 mg QD - Continue to follow up outpatient for further management #History of NSVT On previous admission on 06/24/2025, patient was noted to have 1 episode of NSVT on 06/30/2025 and was started on amiodarone drip and later transition to oral amiodarone 200 mg twice daily. Telemetry reviewed and no arrhythmias noted. Plan: - Continue PO amiodarone 200 mg QD - Telemetry for cardiac monitoring #HTN #HLD On admission, BP 129/87 HR 94. Lipid panel cholesterol 98, triglycerides 54, LDL 50, HDL 37. Plan: - Continue home atorvastatin 80 mg Qhs - Continue Entresto 1 tab BID - Hold metoprolol and spironolactone as above, resume as BP tolerates #LLL PNA #L pleural fluid #Chronic smoking history, 30 pack years #Cirrhosis #Benign prostate hypertrophy #Normocytic normochromic anemia #Hepatitis C #COPD Plan: - Management per primary team Thank you for the consultation and allowing us to participate in patient's care. Plan of care discussed with attending Dr. Mcclelland, drag out worker Leandra Moss, DO PGY-1 Internal Medicine Attending Provider Attestation/Addendum I have personally seen and examined the patient separately on the above date of service and discussed the plan of care with the resident. I reviewed the resident Dr. Leandra Moss consultation progress note and agree with the resident findings and plan in the note above and have also edited the documentation to reflect my findings and plan. Ernie Mcclelland M.D. Interventional Cardiology
--- NOTE | 2025-08-13 11:42 | ESPR_ITS ---
<Statement entered by Cleo Deleon MD - 08/13/25 14:38> Patient seen and examined at bedside. No acute overnight events reported. Patient thus far has had a total net negative urine output of 24L. Patient's current weight is 108kg or 238lbs, which is around his baseline weight. Patient was 30 pounds heavier during hospitalization 7 days ago. Will transition patient from IV to PO diuretics and speak to patient regarding dispo plan: either home with HH or SNF. Patient is unsure at the moment, and will inquire later. Anticipate discharge within 24-48 hours. Patient is on day 3 of Abx for his LLB PNA. I discussed with and supervised the compensation intern physician who took care of this patient. I personally saw and examined the patient and discussed the assessment and plan with the entire medicine team, including my attending Dr. Sevilla, I agree with most of the assessment and plan as documented below Cleo Deleon M.D. PGY-3 Documentation for date of: 08/13/25 Subjective Subjective Interval history: Mr. King is a 65-year-old male with past medical history of heart failure with reduced ejection fraction, EF 20-25% 03/2025, combined systolic and diastolic heart failure, mild to moderate AV stenosis, benign prostate hypertrophy, ?Cirrhosis, hepatitis C infection, infrarenal abdominal aortic aneurysm, peripheral arterial disease status post iliac stent (on asa and plavix), hyperlipidemia and former cocaine use and chronic smoker with 30 pack years who presented to [facility] emergency department with a chief complaint of bilateral lower extremity edema up to scrotum, admitted for acute congestive heart failure exacerbation and PA 08/10/2025: Patient seen and examined while in telemetry. He continues on IV diuresis with 2 mg IV Bumex, blood pressures have been soft hold parameters for Entresto systolic below 90, net -5200 cc today continues on 1500 fluid restriction weight today is 111 kg from 117 kg yesterday. Continues to have 2- 3+ lower extremity edema, scrotal edema is resolved 08/11/2025: Patient seen and examined while in telemetry. He continues on IV diuresis with 2 mg IV Bumex, blood pressures have been soft but stable he continues on Entresto (hold for systolic below 90). UOP 4100, weight 246. LE edema is improved. increased skin wrinkling around ankles. CXR with left lower pna started on ceftriaxone today. 08/12/2025: Patient seen and examined while in tele. He continues on iv diuresis, with 2 mg iv bumex, blood pressures have been soft but stable he continues on Entresto (hold for systolic below 90). UOP 4200, weight 246. LE edema is improved. increased skin wrinkling around ankles. continues on cxr for likely superimposed bacterial pna on LLL, dispo plan is for home with home health per pt request. will continue diuresis for 1-2 more days. Patient received p.o. dose of IV Bumex 2 mg 08/13/2025: Patient seen and examined while on telemetry. He reports feeling a lot more comfortable his legs are much smaller his breathing is a lot better he is speaking in full sentences. He received 2 mg of IV Bumex and plan to transition to p.o. Bumex 2 mg tomorrow. Urine output is 3900 Exam Vital Signs Temp Pulse Resp BP Pulse Ox O2 Del Method O2 Flow Rate 97.5 F 75 22 H 102/64 97 Room Air 2 08/13/25 07:41 08/13/25 08:58 08/13/25 07:41 08/13/25 08:58 08/13/25 07:41 08/13/25 07:41 08/13/25 03:42 Narrative Exam GENERAL: no acute distress, AAO x3, sitting at 45 degrees in bed HEENT: Head AT/ NC. Mucous membranes moist. PERRL. poor dentition NECK: Supple, no lymphadenopathy, no carotid bruits. CARDIOVASCULAR: RRR. Normal S1/S2, systolic murmor, 1+ pitting edema of bilateral LEs , RESPIRATORY:decreased breath sounds on L base with some trace crackles L>R GASTROINTESTINAL: obese, Abdomen soft, non tender no palpable masses. Bowel sounds present : sanders catheter in place, burried penis, scrotal edema is resolved, wrinkling on scrotum. MUSCULOSKELETAL:? No cyanosis or edema, no visible joint swelling. NEUROLOGICAL: CN II-XII grossly intact. No focal deficits. diminished sensation of BL feet, weak pedal pulses. PSYCHIATRIC: Awake and alert, not agitated, normal mood and affect. SKIN: ahsan stasis, L 2nd toe amputation, cool to touch, increased skin wrinkling around ankles and distal shins. Objective Labs 08/13/25 08:15 08/13/25 08:15 Labs: Laboratory Results - last 24 hr 08/13/25 08:15 WBC 6.9 RBC 4.74 Hgb 13.7 Hct 43.2 MCV 91 MCH 28.9 MCHC 31.7 RDW Std Deviation 50.4 H Plt Count 186 Neut % (Auto) 76 Lymph % (Auto) 13 [place] % (Auto) 6 Eos % (Auto) 4 Baso % (Auto) 1 Neut # (Auto) 5.2 Lymph # (Auto) 0.9 L [place] # (Auto) 0.4 Eos # (Auto) 0.3 Baso # (Auto) 0.1 Immature Gran # (Auto) 0.04 H Absolute Nucleated RBC 0.00 Immature Gran % 1 H Nucleated RBC % 0 Sodium 139 Potassium 3.8 D Chloride 98 Carbon Dioxide 31.6 H Anion Gap 9 BUN 15 Creatinine 1.2 Estim Creat Clear Calc 79.1 eGFR > 60 BUN/Creatinine Ratio 13 Glucose 154 H D Calculated Osmolality 281 Calcium 8.9 Corrected Calcium 9.2 Phosphorus 3.8 Magnesium 2.0 Total Bilirubin 0.8 AST 100 H ALT 53 H Alkaline Phosphatase 117 H Total Protein 6.4 Albumin 3.6 Globulin 2.8 Albumin/Globulin Ratio 1.3 Quality Measures Quality Measures VTE prophylaxis Assessment & Plan Assessment Current Active Medications: Generic Name Dose Route Start Last Admin Trade Name Freq PRN Reason Stop Dose Admin Acetaminophen 650 mg 08/06/25 15:21 08/12/25 16:23 Acetaminophen 325 Mg Tablet PO 09/05/25 15:20 650 mg Q6H PRN Administration PAIN SCALE 1-3 (mild Amiodarone HCl 200 mg 08/10/25 09:00 08/13/25 08:56 Amiodarone Hcl 200 Mg Tablet PO 09/09/25 08:59 200 mg DAILY CHYNA Administration Aspirin 81 mg 08/07/25 09:00 08/13/25 08:56 Aspirin Ec 81 Mg Tabec PO 09/06/25 08:59 81 mg QDAY CHYNA Administration Atorvastatin Calcium 80 mg 08/07/25 21:00 08/12/25 21:39 Atorvastatin Calcium 20 Mg Tablet PO 09/06/25 20:59 80 mg QPM CHYNA Administration Bumetanide 2 mg 08/14/25 09:00 Bumetanide 0.5 Mg Tablet PO 09/13/25 08:59 QDAY CHYNA Clopidogrel Bisulfate 75 mg 08/07/25 09:00 08/13/25 08:56 Clopidogrel Bisulfate 75 Mg Tablet PO 09/06/25 08:59 75 mg QDAY CHYNA Administration Docusate Sodium 100 mg 08/08/25 09:00 08/13/25 08:56 Docusate Sod 100 Mg Capsule PO 09/07/25 08:59 100 mg BID CHYNA Administration Protocol Heparin Sodium (Porcine) 5,000 unit 08/06/25 21:00 08/13/25 08:58 Heparin Sod Inj 5000 Unit/Ml Vial SC 08/20/25 20:59 5,000 unit Q12HR CHYNA Administration Ceftriaxone Sodium/Dextrose 1 gm in 50 mls @ 100 mls/hr 08/11/25 12:09 08/13/25 08:57 Rocephin/D5w 1gm Iv Premix IV 08/18/25 12:08 100 mls/hr QDAY CHYNA Administration Lactulose 20 gm 08/07/25 09:00 08/13/25 08:55 Lactulose Syrup 20 Gm/30 Ml Udc PO 09/06/25 08:59 20 gm QDAY CHYNA Administration Protocol Ondansetron HCl 4 mg 08/06/25 15:21 Ondansetron Inj 2 Mg/Ml Inj 2 Ml IVP 09/05/25 15:20 Q6H PRN NAUSEA OR VOMITING Protocol Pantoprazole Sodium 40 mg 08/07/25 09:00 08/13/25 08:56 Pantoprazole 40 Mg Tablet PO 09/06/25 08:59 40 mg QDAY CHYNA Administration Sacubitril/Valsartan 1 tab 08/10/25 18:21 08/13/25 08:56 Sacubitril 24 Mg/Valsartan 26 Mg Tablet PO 09/06/25 08:59 1 tab BID CHYNA Administration Sennosides 1 tab 08/08/25 09:00 08/13/25 08:56 Senna Tablet PO 09/07/25 08:59 1 tab QDAY CHYNA Administration Protocol Tamsulosin HCl 0.4 mg 08/07/25 09:00 08/13/25 08:56 Tamsulosin Hcl 0.4 Mg Capsule PO 09/06/25 08:59 0.4 mg QDAY CHYNA Administration Plan Mr. King is a 65-year-old male with past medical history of heart failure with reduced ejection fraction, EF 20-25% 03/2025, combined systolic and diastolic heart failure, mild to moderate AV stenosis, benign prostate hypertrophy, ?Cirrhosis, hepatitis C infection, infrarenal abdominal aortic aneurysm, peripheral arterial disease status post iliac stent (on asa and plavix), hyperlipidemia and former cocaine use and chronic smoker with 30 pack years who presented to [facility] emergency department with a chief complaint of bilateral lower extremity edema up to scrotum, admitted for acute congestive heart failure exacerbation and PA. Continue with diuresis transition to PO bumex tomorrow. cont on abx for L lobar pneumonia. #Acute CHF exacerbation with - improving #HFrEF, EF 25-30% #NYHA class III Most likely that patient's recurrent acute CHF exacerbations are secondary to high sodium diet given his limited ability to ambulate he relies heavily on TV dinners. He is compliant with his diuretic medications but continues to have significant lower extremity edema. Patient follow with cardiology Dr. Mcclelland with last visit being earlier this month. Patient stated that recent dose change was made to Bumex from 1 mg p.o. to 2 mg p.o. daily. But since past couple of days he has been endorsing worsening shortness of breath difficulty walking short distances around his apartment. Complains of worsening swelling, coughing, shortness of breath. Volume Overload, BNP >3200, severe edema to the scrotum, and crackles on auscultation bilaterally. 230 Dry weight (pt states that he now weighs about 275) At home, patient is on GDMT of metoprolol XL 25 mg QD, Entresto 1 tablet BID, spironolactone 25 mg QD. EKG showed sinus rhythm HR 90 with QTC 474 with left axis deviation. - d/c IV Bumex 2 mg QD, goal of net 2-3L negative over 24h, CTM for contraction alkalosis and electrolyte abnormalities - start to PO Bumex 2 mg tomorrow - If contraction alkalosis continues to worsen, hold Bumex and give acetazolamide 500 mg x1 - Continue Entresto 1 tab BID (hold if sbp<90) - Hold metoprolol and spironolactone iso soft BP and for anticipation of further diuresis - echocardiogram EF 25-30% Dilated Cardiomyopathy, Dilated LV, Severey systolic dysfunction. Severe global hypokinesis - Strict I&Os, daily weights - Low sodium diet, 1.5L fluid restriction - CTM renal panel - Keep K>4 and Mg>2 at all times - net negative 3900 cc - weight: 246 lbs --> 239 lbs #CAP #Influenza positive CXR with c/f LLL pneumonia, pt has wet cough - start abx ceftriaxone (08/11- - plan to discharge to complete 5 day course of azithro 250 qd and amox clauvulante 875 BID . - Tamiflu 75 mg twice daily, (08/06-08/11) #Small L pleural effusion effusion noted on CXR, too small to do thora - cont diuresis. #PA 2/2 cardiorenal syndrome- resolved Cr on admission 1.6 with baseline of 0.8-1 likely 2/2 to cardiorenal syndrome with acute exacerbation and fluid overload. Cr 1.2 -maintenance fluids -avoid nephrotoxic agents -daily CMP #Infrarenal abdominal aortic aneurysm, 3.3 cm #PAD s/p bilateral iliac artery stents #Significant narrowing of L common iliac artery stent CTAP on 06/24/2025 shows infrarenal abdominal aorta 3.3 cm small blood and 11 mm off the lateral margin of the infrarenal aorta. With bilateral iliac artery stents, significant narrowing of the left common iliac artery stent and healthy calcification of the common femoral arteries. On exam pedal pulses 1+ with diminished light touch sensation on dorsal aspect of bilateral feet. MONICO (05/01/2025): Right ankle/Brachial index 1.1 and Left ankle/Brachial index 1.1 - Continue Plavix 75 mg QD and ASA 81 mg QD - Continue to follow up outpatient for further management #History of NSVT On previous admission on 06/24/2025, patient was noted to have 1 episode of NSVT on 06/30/2025 and was started on amiodarone drip and later transition to oral amiodarone 200 mg twice daily. Telemetry reviewed and no arrhythmias noted. - Continue PO amiodarone 200 mg QD - Telemetry for cardiac monitoring #HTN #HLD On admission, BP 129/87 HR 94. Lipid panel cholesterol 98, triglycerides 54, LDL 50, HDL 37. - Continue home atorvastatin 80 mg Qhs - Continue Entresto 1 tab BID (hold if bp<90) - Hold metoprolol and spironolactone as above, resume as BP tolerates #COPD Patient does use oxgyen at home. Denies exacerbation in some time. -breathing treatments as needed -cont pulse ox -cont diuresing BPH - cont tamsulosin 0.4 mg qd HLD - atorvastatin 80 qhs Chronic smoking history, 30 pack years Not an active smoker currently, history of 30 pack years, no lung nodules/lymphadenopathy noted on CTA - Outpatient screening including CT chest, AAA screening >65 Health maintenance: Dispo: tele, actue CHF exacerbation, diureses, PT therapy reccommends SNF ? dispo plan snf vs home with hh, continues on abx for L pna FEN: cardic DVT prophylaxis: Subcu heparin CODE STATUS: Full code Plan discussed with Dr. Menchaca and Dr. Roel Dooley MD PGY1 Attending Provider Attestation/Addendum I have discussed and was present for the essential components of the history, physical examination, diagnosis, and treatment plan with the resident. I agree with the patient's care as documented by the resident and amended herein by me. Jorge Luis Sevilla, DO. Although this document has been carefully reviewed, there may still be some phonetic and other typographical errors. These errors are purely grammatical due to imperfections in the software program and should not be construed in any way to compromise the substance of the patient's medical care during this visit. Patient seen and evaluated this AM. No acute events overnight, vital signs stable, patient afebrile, weight 108 kg today, I/O 1020/3900 mL. Patient continues to look clinically improved with much less edema today than previous days however I think he has 1 more day to go with diuresis. Will continue Bumex for now, cardiology consulted, appreciate recommendations. Likely discharge tomorrow 08/14.
--- NOTE | 2025-08-13 15:53 | PC.SS ---
Rounding note: diuresis tomorrow, SS will follow up with patient to confirm d/c with HH.
[2025-08-13] MEDS: ACETAMINOPHEN 325 MG TABLET 650 MG PO (16:45)
[2025-08-13] MEDS: ATORVASTATIN CALCIUM 20 MG TABLET 80 MG PO (20:47)
[2025-08-14] VITALS (13 sets, daily range): BP systolic 83–108; BP diastolic 36–72; PULSE 69–85; RESP 17–98; TEMP 35.9–36.4; O2SAT 93–99; BMI 31.6
[2025-08-14 05:33] LABS: Basophils # (Auto) 0.1 Thou/mm3 (0.0-0.2); Basophils % (Auto) 1 % (0-2.5); Eosinophils # (Auto) 0.2 Thou/mm3 (0.0-0.5); Eosinophils % (Auto) 4 % (0-10); Hematocrit 43.8 % (41.0-53.0); Hemoglobin 13.5 g/dL (13.5-16.0); Immature Granulocytes Auto 0.03 Thou/mm3 (0.00-0.00); Lymphocytes # (Auto) 1.0 Thou/mm3 (1.0-4.8); Lymphocytes % (Auto) 16 % (10-50); Mean Corpuscular HGB Conc 30.8 g/dl (31.0-37.0); Mean Corpuscular Hemoglobin 28.4 pg (25.0-35.0); Mean Corpuscular Volume 92 fL (80-100); Monocytes # (Auto) 0.5 Thou/mm3 (0.0-0.8); Monocytes % (Auto) 8 % (0-12); Neutrophils # (Auto) 4.3 Thou/mm3 (1.8-7.7); Neutrophils % (Auto) 71 % (37-80); Nucleated Red Blood Cell # 0.00 Thou/mm3 (0.00-0.00); Nucleated Red Blood Cell % 0 /100 WBC (0); Platelet Count 192 Thou/mm3 (140-440); RDW Standard Deviation 51.2 fL (35.1-43.9); Red Blood Count 4.76 Miln/mm3 (4.50-5.90); White Blood Count 6.1 Thou/mm3 (3.8-10.6)
[2025-08-14 06:17] LABS: Alanine Aminotransferase 62 U/L (10-49); Albumin, Serum 3.5 gm/dL (3.4-4.8); Albumin/Globulin Ratio 1.3 (1.2-2.2); Alkaline Phosphatase 123 U/L (46-116); Anion Gap 9 (7-16); Aspartate Amino Transferase 122 U/L (0-34); BUN/Creatinine Ratio 15 Ratio (12-20); Bilirubin,Total 0.8 mg/dL (0.3-1.2); Blood Urea Nitrogen 17 mg/dL (9-23); Calcium 9.1 mg/dL (8.3-10.6); Calcium (Corrected) 9.5 mg/dL (8.5-10.1); Carbon Dioxide 30.9 mMol/L (20.0-31.0); Chloride 100 mMol/L (98-107); Creatinine (Component) 1.1 mg/dL (0.6-1.3); Estimated Creatinine Clearance 86.3 mL/min (>60); Globulin 2.8 gm/dL (2.3-3.5); Glucose 94 mg/dL (74-106); Magnesium 2.1 mg/dL (1.6-2.6); Osmolality,Calculated 280 (275-295); Phosphorous 4.2 mg/dL (2.4-5.1); Potassium 4.4 mMol/L (3.4-5.1); Sodium 140 mMol/L (136-145); Total Protein 6.3 gm/dL (5.7-8.2); eGFR > 60 See Note
[2025-08-14] MEDS: ASPIRIN EC 81 MG TABEC PO (08:15)
[2025-08-14] MEDS: TAMSULOSIN HCL 0.4 MG CAPSULE PO (08:15)
[2025-08-14] MEDS: AMIODARONE HCL 200 MG TABLET PO (08:17)
[2025-08-14] MEDS: PANTOPRAZOLE 40 MG TABLET PO (08:17)
[2025-08-14] MEDS: CLOPIDOGREL BISULFATE 75 MG TABLET PO (08:19)
[2025-08-14] MEDS: HEPARIN SOD INJ 5000 UNIT/ML VIAL SC ×2 (08:20→20:35)
[2025-08-14] MEDS: cefTRIAXone/D5w 1gm IV premix 1 GM/50 ML BAG IV (08:23)
--- NOTE | 2025-08-14 08:47 | ESDS_ITS ---
<Statement entered by Yaz Menchaca MD - 08/15/25 11:34> Note reviewed, I agree with most of its contents and agree with the patient's care as documented by Dr. Dooley. Patient was admitted on 08/06/25 for acute CHF exacerbation. He follows with cardiology Dr. Mcclelladn outpatient. Was recently increased PO bumex from 1mg to 2mg daily. Endorsed eating TV dinners with high salt, +3 LE pitting edema, rhonchi, and worsening SOB. In ED apparent scrotal swelling as well. Concern for non compliance as well. Patient was started on IV Bumex 2mg BID and decreased to 2mg daily. LE edema resolved after aggresive diuresis. He had roughly -26L output. Dry weight appears to be around 118kg. Admission weight apprx 122kg. Echo from 08/08/25--Dilated Cardiomyopathy, Dilated LV, Severey systolic dysfunction. Severe global hypokinesis. Estimated EF 25-30%. Grade II diastolic dysfunction. He will be discharged on p.o. butmetanide 2mg daily. Instructed to document daily weights as he will need to increase Bumex dose by 1 mg if weight increases by 3 pounds. Educated on importance of complying with low-sodium diet. He completed full course of antibiotics for treatment of pneumonia. Patient now in stable condition and ready for discharge to SNF. The patient's management plan was discussed with my attending physician Dr. Sevilla. Yaz Menchaca, PGY-2 Planned Discharge Date 08/15/25 DS: Providers Provider Date of admission: 08/06/25 10:55 Primary care physician: Julian Dick MD Admitting Provider: Misael Mclaughlin MD Attending Provider on Admission: Eamon Sevilla DO Consults: 08/06/25 22:27 Referral Physical Therapy Routine Comment: Physician Instructions: Health Equity Referral - Knowledge Deficit Routine Comment: Positive screening for knowledge deficit needs. 08/07/25 10:16 Consult to Cardiology Routine Comment: acute chf exaccerbation Consulting Provider: Ernie Mcclelland Attending Provider on DC: Eamon Sevilla DO Discharging Provider: Eamon Sevilla DO DS: Diagnosis Problem List Completed Was Problem List Reviewed/Reconciled?: Yes Hospital Course Hospital Course Hospital course: History of Present Illness This is a 65-year-old man with a history of HFrEF (EF 20?25% in March 2025, improved to 25?30% on echocardiogram 08/2025), BPH, cirrhosis with hepatitis C infection, infrarenal abdominal aortic aneurysm, peripheral arterial disease (status post iliac stent), hyperlipidemia, and substance use history (former cocaine, former smoker), who presented to the ED with progressive bilateral lower extremity edema extending to the scrotum and dyspnea. Hospital Course Acute Heart failure exacerbation: The patient was admitted for acute decompensated HFrEF with associated volume overload and mild PA. Cardiology (Dr. Mcclelland) was consulted and recommended IV bumex 2 mg qd. Fluid restriction 1500cc, low sodium diet He had a robust diuresis with urine outputs of 2-3 liters/day and significant improvement in lower extremity edema and dyspnea. His systolic blood pressures remained in the 90s, but stable. He was transitioned to oral budesinide once euvolemic. Entresto was continued as tolerated based on blood pressure. Pulmonary findings: On exam, he had decreased breath sounds on the left side. Imaging revealed a sm all left pleural effusion and findings concerning for left lower lobe pneumonia. He was started on IV ceftriaxone, (08/11-08/15), He also tested positive for influenza on admission, given 5 day course of tamifllu. Renal function: He had mild PA on admission, likely cardiorenal in the setting of CHF exacerbation. His renal function stabilized with cautious diuresis. The patient reported marked symptomatic improvement, including resolution of scrotal swelling, improved lower extremity edema, and improved breathing?able to speak in full sentences. Dry weight measured at 231.9 lbs Discharge Diagnoses: Acute on chronic combined systolic and diastolic heart failure (EF 25?30%) Mild acute kidney injury- resolved Left lower lobe pneumonia (suspected bacterial, treated) Influenza positive Small left-sided pleural effusion Cirrhosis secondary to hepatitis C Infrarenal abdominal aortic aneurysm Peripheral arterial disease, status post iliac stent, on dual antiplatelet therapy (aspirin, clopidogrel) Benign prostatic hyperplasia Hyperlipidemia History of cocaine use Chronic tobacco use, 96-[id number] history Discharge Condition Stable, tolerating oral intake, ambulatory with assistance. Discharge Medications Augmentin 1 tab po BID Bumex 2 mg PO daily (increase to 4mg daily if body weight increases by 3 lbs) Call power transformer inspector if weight increases more than 5 lbs. HOLD Entresto (sacubitril/valsartan)restart as directed by power transformer inspector. Aspirin Clopidogrel Atorvastatin 80 mg po qhs BPH medications Others per medication reconciliation Follow-Up Do daily body weight and increase the dose of Bumex by 1 tablet if his body weight increase by 3 pounds. If weight goes above 5 pounds increase he has to contact his primary care physician and power transformer inspector low sodium diet Cardiology: outpatient follow-up for heart failure management Primary care: within 1?2 weeks for post-hospital follow-up and medication reconciliation Patient Education Counseled on low-sodium diet, daily weight monitoring, medication adherence, and warning signs of heart failure exacerbation (weight gain, increased edema, worsening dyspnea). Plan discussed with Dr. Menchaca and Dr. Roel Dooley MD PGY1 Time Spent with Patient Time attestation: Total time spent providing and/or coordinating discharge services: Time spent: Greater than 30 minutes Exam Vital Signs Temp Pulse Resp BP Pulse Ox O2 Del Method O2 Flow Rate 96.8 F 74 17 97/63 99 Nasal Cannula 2 08/14/25 08:00 08/14/25 08:17 08/14/25 08:00 08/14/25 08:17 08/14/25 08:00 08/14/25 08:00 08/14/25 08:00 Narrative Exam GENERAL: no acute distress, AAO x3, sitting at 45 degrees in bed HEENT: Head AT/ NC. Mucous membranes moist. PERRL. poor dentition NECK: Supple, no lymphadenopathy, no carotid bruits. CARDIOVASCULAR: RRR. Normal S1/S2, systolic murmor, trace edema of bilateral LEs , RESPIRATORY:decreased breath sounds on L base GASTROINTESTINAL: obese, Abdomen soft, non tender no palpable masses. Bowel sounds present : scrotal edema is resolved, wrinkling on scrotum, sanders catheter removed. MUSCULOSKELETAL:? No cyanosis or edema, no visible joint swelling. NEUROLOGICAL: CN II-XII grossly intact. No focal deficits. diminished sensation of BL feet, weak pedal pulses. PSYCHIATRIC: Awake and alert, not agitated, normal mood and affect. SKIN: ahsan stasis, L 2nd toe amputation, cool to touch, increased skin wrinkling around ankles and distal shins. Discharge Plan Plan Patient Disposition: Xfer Skilled Nsg Fac (SNF) Disposition Comment: [facility] Patient condition on transfer: Stable Prescriptions/Referrals Prescriptions/Med Rec: New bumetanide 2 mg tablet 2 mg PO QDAY Qty: 60 0RF Continued tamsulosin 0.4 mg capsule 0.4 mg PO DAILY Patient Comments: take 1 capsule by mouth once daily aspirin 81 mg tablet,delayed release (DR/EC) 81 mg PO QDAY amiodarone 200 mg tablet 200 mg PO QDAY clopidogrel 75 mg tablet 75 mg PO QDAY acetaminophen 500 mg tablet 500 mg PO BID ferrous sulfate [FeroSul] 325 mg (65 mg iron) tablet 325 mg PO TID metoprolol succinate 25 mg tablet extended release 24 hr 25 mg PO QDAY pantoprazole 40 mg tablet,delayed release (DR/EC) 40 mg PO QDAY melatonin 5 mg capsule 5 mg PO HS bisacodyl [Dulcolax (bisacodyl)] 10 mg suppository 10 mg DE QDAY PRN (Reason: constipation) sacubitril-valsartan [Entresto] 24-26 mg tablet 1 tab PO BID 30 Days Qty: 60 0RF Rx Instructions: hold if SBP<90 multivitamin with folic acid [Tab-A-Amara] 400 mcg Tablet 1 tab PO QDAY Qty: 0 0RF zinc sulfate 50 mg zinc (220 mg) Capsule 220 mg PO QDAY Qty: 0 0RF atorvastatin 80 mg tablet 80 mg PO QPM Qty: 7 0RF Discontinued bumetanide 1 mg tablet 1 mg PO QDAY Referrals: Ernie Mcclelland MD [Physician, Cardiology] Julian Dick MD [Primary Care Provider, Family Practice] Frieda Dooley MD [Resident, Internal Medicine] Patient/Caregiver Discharge Instructions Other Discharge Activity Instructions:: Continue taking Entresto for treatment of heart failure but hold if your SBP is <90. Continue taking 2 mg bumetanide daily for treatment of heart failure. Resume other previous medications. Follow up with your power transformer inspector in 1-2 weeks. Follow up with PCP in 1-2 weeks. If you do not have a PCP, please make an appointment at the [facility], , for Wednesdays and Fridays 1-4PM. Return to ED if symptoms worsen. Weight yourself daily and if you notice weight gain of 2 or more pounds, take one extra dose of bumetanide. Limit sodium intake to at least 2 grams/day. Education Materials: Heart Failure Meds, What Is Heart Failure, Heart Failure: Tracking Your Weight, Coping with Heart Failure Print Language: Amharic Stand Alone Forms: Nidia Award Info., Patient Portal Info Letter Discharge Order Discharge Orders: Discharge (Routine); Ordered 08/15/25 Ordered By: Yaz Menchaca Quality Discharge Quality Measures VTE prophylaxis Attestestation Attestation I have discussed and was present for the essential components of the discharge history, physical examination, diagnosis, and discharge treatment plan with the resident. I agree with the patient's discharge care as documented by the resident and amended herein by me. Jorge Luis Sevilla DO. The patient understood all discharge instructions, all questions were answered satisfactorily. The patient was instructed to return to the Emergency Department is symptoms worsened or persisted. Patient was stable, afebrile, tolerating p.o. intake at time of discharge to SNF. Patient significantly improved with nearly 27 L fluid removed. Patient will be discharged on Bumex daily, see dose above. Patient was counseled extensively on the necessity of lifestyle modifications to include fluid restriction to 1.8 to 2 L/day and daily weights, if his weight is more than 2 to 3 pounds above his baseline of 102 kg, he should take an extra dose of Bumex that day. The patient understood and was stable to discharge to SNF. Although this document has been carefully reviewed, there may still be some phonetic and other typographical errors. These errors are purely grammatical due to imperfections in the software program and should not be construed in any way to compromise the substance of the patient's medical care during this visit.
[2025-08-14] MEDS: BUMETANIDE 0.5 MG TABLET 2 MG PO (08:56)
--- NOTE | 2025-08-14 09:43 | PD.RESPRO ---
Documentation for date of: 08/14/25 Subjective Subjective Interval history: Patient was seen and examined at bedside. Denied any new symptoms. Overnight nurse reported that his oxygen saturation went down to 89. However at this time he is on room air saturating 96%. Denied any chest pain, shortness of breath, orthopnea. No arrhythmia noted in the past 24 hours. Patient fluid balance since admission is -26 L. Blood pressure noted to be in the soft side over the past 24 hours, lowest blood pressure was 83/54. Recommended to hold Entresto and continue diuresing the patient. Okay to KEEP the dose of Bumex AT 2 mg p.o. daily. If patient going to be discharged please record his dry weight 102KG on discharge. Instruct the patient to do daily body weight and increase the dose of Bumex by 1 dose of his body weight increase by 3 pounds. If it goes above 5 pounds increase he has to contact his CRDIOLOGIST Exam Vital Signs Temp Pulse Resp BP Pulse Ox O2 Del Method O2 Flow Rate 96.8 F 74 17 97/36 L 99 Nasal Cannula 2 08/14/25 08:00 08/14/25 08:56 08/14/25 08:00 08/14/25 08:56 08/14/25 08:00 08/14/25 08:00 08/14/25 08:00 Narrative Exam GENERAL: AOx3, semisitting position, breathing room air HEENT: NC/AT, mucous membranes moist, bilateral sclera anicteric CARDIOVASCULAR: regular rate and rhythm, S1/S2 present, 4/6 harsh systolic murmur PULMONARY: Good air entry bilaterally, no added sounds. 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 NEURO: CN II-XII grossly intact, no focal deficits, alert, following commands Objective Labs 08/14/25 04:45 08/14/25 04:45 Labs: Laboratory Results - last 24 hr 08/14/25 04:45 WBC 6.1 RBC 4.76 Hgb 13.5 Hct 43.8 MCV 92 MCH 28.4 MCHC 30.8 L RDW Std Deviation 51.2 H Plt Count 192 Neut % (Auto) 71 Lymph % (Auto) 16 [place] % (Auto) 8 Eos % (Auto) 4 Baso % (Auto) 1 Neut # (Auto) 4.3 Lymph # (Auto) 1.0 [place] # (Auto) 0.5 Eos # (Auto) 0.2 Baso # (Auto) 0.1 Immature Gran # (Auto) 0.03 H Absolute Nucleated RBC 0.00 Immature Gran % 1 H Nucleated RBC % 0 Sodium 140 Potassium 4.4 D Chloride 100 Carbon Dioxide 30.9 Anion Gap 9 BUN 17 Creatinine 1.1 Estim Creat Clear Calc 86.3 eGFR > 60 BUN/Creatinine Ratio 15 Glucose 94 D Calculated Osmolality 280 Calcium 9.1 Corrected Calcium 9.5 Phosphorus 4.2 Magnesium 2.1 Total Bilirubin 0.8 AST 122 H ALT 62 H Alkaline Phosphatase 123 H Total Protein 6.3 Albumin 3.5 Globulin 2.8 Albumin/Globulin Ratio 1.3 Quality Measures Quality Measures VTE prophylaxis Assessment & Plan Assessment Current Active Medications: Generic Name Dose Route Start Last Admin Trade Name Freq PRN Reason Stop Dose Admin Acetaminophen 650 mg 08/06/25 15:21 08/13/25 16:45 Acetaminophen 325 Mg Tablet PO 09/05/25 15:20 650 mg Q6H PRN Administration PAIN SCALE 1-3 (mild Amiodarone HCl 200 mg 08/10/25 09:00 08/14/25 08:17 Amiodarone Hcl 200 Mg Tablet PO 09/09/25 08:59 200 mg DAILY CHYNA Administration Aspirin 81 mg 08/07/25 09:00 08/14/25 08:15 Aspirin Ec 81 Mg Tabec PO 09/06/25 08:59 81 mg QDAY CHYNA Administration Atorvastatin Calcium 80 mg 08/07/25 21:00 08/13/25 20:47 Atorvastatin Calcium 20 Mg Tablet PO 09/06/25 20:59 80 mg QPM CHYNA Administration Bumetanide 2 mg 08/14/25 09:00 08/14/25 08:56 Bumetanide 0.5 Mg Tablet PO 09/13/25 08:59 2 mg QDAY CHYNA Administration Clopidogrel Bisulfate 75 mg 08/07/25 09:00 08/14/25 08:19 Clopidogrel Bisulfate 75 Mg Tablet PO 09/06/25 08:59 75 mg QDAY CHYNA Administration Docusate Sodium 100 mg 08/08/25 09:00 08/14/25 08:20 Docusate Sod 100 Mg Capsule PO 09/07/25 08:59 Not Given BID CHYNA Protocol Heparin Sodium (Porcine) 5,000 unit 08/06/25 21:00 08/14/25 08:20 Heparin Sod Inj 5000 Unit/Ml Vial SC 08/20/25 20:59 5,000 unit Q12HR CHYNA Administration Ceftriaxone Sodium/Dextrose 1 gm in 50 mls @ 100 mls/hr 08/11/25 12:09 08/14/25 08:23 Rocephin/D5w 1gm Iv Premix IV 08/18/25 12:08 100 mls/hr QDAY CHYNA Administration Lactulose 20 gm 08/07/25 09:00 08/14/25 08:20 Lactulose Syrup 20 Gm/30 Ml Udc PO 09/06/25 08:59 Not Given QDAY [facility] Protocol Ondansetron HCl 4 mg 08/06/25 15:21 Ondansetron Inj 2 Mg/Ml Inj 2 Ml IVP 09/05/25 15:20 Q6H PRN NAUSEA OR VOMITING Protocol Pantoprazole Sodium 40 mg 08/14/25 09:00 08/14/25 08:17 Pantoprazole 40 Mg Tablet PO 09/13/25 08:59 40 mg QDAY CHYNA Administration Sacubitril/Valsartan 1 tab 08/10/25 18:21 08/13/25 20:47 Sacubitril 24 Mg/Valsartan 26 Mg Tablet PO 09/06/25 08:59 1 tab On Hold: 08/14/25 05:32 BID CHYNA Administration Sennosides 1 tab 08/08/25 09:00 08/14/25 08:20 Senna Tablet PO 09/07/25 08:59 Not Given QDAY [facility] Protocol Tamsulosin HCl 0.4 mg 08/07/25 09:00 08/14/25 08:15 Tamsulosin Hcl 0.4 Mg Capsule PO 09/06/25 08:59 0.4 mg QDAY CHYNA Administration Plan [place] 65M pmhx significant for HFrEF (20-25% 03/2025), low-flow moderate AV stenosis, HTN, HLD, infrarenal abdominal aortic aneurysm, PAD s/p iliac stent, former cocaine use, chronic smoker, BPH, cirrhosis and Hepatitis C infection who presents with worsening BLE edema, admitted for acute on chronic heart failure. Cardiology consulted for further management. #Acute on chronic HFrEF, EF 20-25% 03/2025, NYHA Class III #PA 2/2 cardiorenal syndrome #Combined systolic and diastolic heart failure #Low Flow Moderate AV stenosis Patient presented with worsening bilateral lower extremity edema, recently saw drier take off tender and Bumex was increased to 2 mg daily from 1 mg daily. However swelling persisted and worsened with associated worsening dyspnea on exertion and SOB while speaking prompting current hospitalization. Admission BNP >3820 with negative troponins. At home, patient is on GDMT of metoprolol XL 25 mg QD, Entresto 1 tablet BID, spironolactone 25 mg QD. Patient admits to not taking medication consistently. EKG showed sinus rhythm HR 90 with QTC 474 with left axis deviation. Cr on admission 1.6 with baseline of 0.8-1 likely 2/2 to cardiorenal syndrome with acute exacerbation and fluid overload. 03/2025 Echo showed dilated cardiomyopathy, dilated LV, severe systolic expression, severe global hypokinesis, estimated EF 20 to 30%, grade 2 diastolic dysfunction, mild RV dilatation, mild RV systolic dysfunction, mild to moderate AV stenosis, low gradient due to low EF, mean PG 12-14 mmHg but JE around 1.1 to 1.2 cm? which indicates at least moderate stenosis, mild MAC, mild MR and TR, trace AI, mildly dilated LA volume at 40.5 mL/m?. 08/2025 Echo showed dilated cardiomyopathy, dilated LV, severe systolic function, severe global hypokinesis, estimated EF 25 to 30%. Grade 2 diastolic dysfunction. Mild RV dilatation, mild RV systolic dysfunction, mild to moderate AV stenosis low gradient due to low EF, mean PG 12 to 14 mmHg by JE around 1.1 to 1.2 cm? which indicates at least moderate stenosis, mild MAC mild TR mild TR, trace AI and PI, mild dilated LA volume 52.2 mL/m?. No significant change from previous echo 03/15/2025 08/14/2025 Patient fluid balance since admission is -26 L. Blood pressure noted to be in the soft side over the past 24 hours, lowest blood pressure was 83/54. Plan: - Continue Bumex IV 2 mg once daily while patient is inpatient as the weight is still up to 108 kg and his dry weight is 102 kg. - Recommended to hold Entresto and continue diuresing the patient. Restart at the time of discharge - Bumex 2 mg p.o. daily at discharge. If patient going to be discharged please record his dry weight 102KG on discharge. Instruct the patient to do daily body weight and increase the dose of Bumex by 1 dose of his body weight increase by 3 pounds. If it goes above 5 pounds increase he has to contact Dr. Mcclelland office and follow up. ? Follow-up in outpatient setting within 1 week of discharge to start the patient on GDMT after he reach to the dry weight. - If contraction alkalosis recurrs, hold Bumex and give acetazolamide 500 mg x1 - Continue Entresto 1 tab BID, parameters to hold if SBP<90 as current BP are soft and anticipate further diuresis - Plan to reassess EF following 3 months of GDMT - Extensively discussed adherence to medication regimen - Hold metoprolol and spironolactone iso soft BP and for anticipation of further diuresis - Strict I&Os, daily weights - Low sodium diet, 1.5L fluid restriction - CTM renal panel - Keep K>4 and Mg>2 at all times #Infrarenal abdominal aortic aneurysm, 3.3 cm #PAD s/p bilateral iliac artery stents #Significant narrowing of L common iliac artery stent CTAP on 06/24/2025 shows infrarenal abdominal aorta 3.3 cm small blood and 11 mm off the lateral margin of the infrarenal aorta. With bilateral iliac artery stents, significant narrowing of the left common iliac artery stent and healthy calcification of the common femoral arteries. On exam pedal pulses 1+ with diminished light touch sensation on dorsal aspect of bilateral feet. MONICO (05/01/2025): Right ankle/Brachial index 1.1 and Left ankle/Brachial index 1.1 Plan: - Continue Plavix 75 mg QD and ASA 81 mg QD - Continue to follow up outpatient for further management #History of NSVT On previous admission on 06/24/2025, patient was noted to have 1 episode of NSVT on 06/30/2025 and was started on amiodarone drip and later transition to oral amiodarone 200 mg twice daily. Telemetry reviewed and no arrhythmias noted. Plan: - Continue PO amiodarone 200 mg QD - Telemetry for cardiac monitoring #HTN #HLD On admission, BP 129/87 HR 94. Lipid panel cholesterol 98, triglycerides 54, LDL 50, HDL 37. Plan: - Continue home atorvastatin 80 mg Qhs - Continue Entresto 1 tab BID - Hold metoprolol and spironolactone as above, resume as BP tolerates #LLL PNA #L pleural fluid #Chronic smoking history, 30 pack years #Cirrhosis #Benign prostate hypertrophy #Normocytic normochromic anemia #Hepatitis C #COPD Plan: - Management per primary team Thank you for the consultation and allowing us to participate in patient's care. Plan of care discussed with attending Dr. Mcclelland, lard tub washer Twin Tompkins PGY-1 Internal Medicine Attending Provider Attestation/Addendum I have personally seen and examined the patient separately on the above date of service and discussed the plan of care with the resident. I reviewed the resident Dr. Tompkins consultation progress note and agree with the resident findings and plan in the note above and have also edited the documentation to reflect my findings and plan. Ernie Mcclelland M.D. Interventional Cardiology
--- NOTE | 2025-08-14 11:15 | PC.SS ---
rounding note: Physician team states patient now wants to d/c to SNF. SS reviewed PT notes and last documentation showed patient ambulated 250 feet. Patient has a managed Medi-natividad and may not qualify. SS will verify if inquiry was submitted on [employer] and will require prior auth. If denied SNF, patient will need to d/c home with HH services. Patient is ready for d/c.
--- NOTE | 2025-08-14 11:40 | ESPR_ITS ---
<Statement entered by Yaz Menchaca MD - 08/14/25 12:31> Patient seen and examined at bedside. Overnight team held morning dose of p.o. bumetanide and Entresto as blood pressures were soft systolic 90s with a MAP of 68. Per cardiology, continue to hold the Entresto but resume p.o. bumetanide. Patient thus far has had a total net negative urine output of 26L. Today's weight is 108 kg (from 121kg on admission). Lower extremity swelling has resolved with no pitting edema and lung auscultation clear. Today patient requested to be placed in a nursing facility versus going home. I spoke with director social team who will resubmit for authorization. He will be discharged on p.o. butmetanide 1mg daily. Instructed to document daily weights as he will need to increase Bumex dose by 1 mg if weight increases by 3 pounds. Educated on importance of complying with low-sodium diet. Patient to complete one more day of antibiotics for treatment of pneumonia. The patient's management plan was discussed with my attending physician Dr. Sevilla. Yaz Menchaca, PGY-2 Documentation for date of: 08/14/25 Subjective Subjective Interval history: Mr. King is a 65-year-old male with past medical history of heart failure with reduced ejection fraction, EF 20-25% 03/2025, combined systolic and diastolic heart failure, mild to moderate AV stenosis, benign prostate hypertrophy, ?Cirrhosis, hepatitis C infection, infrarenal abdominal aortic aneurysm, peripheral arterial disease status post iliac stent (on asa and plavix), hyperlipidemia and former cocaine use and chronic smoker with 30 pack years who presented to [facility] emergency department with a chief complaint of bilateral lower extremity edema up to scrotum, admitted for acute congestive heart failure exacerbation and PA 08/12/2025: Patient seen and examined while in tele. He continues on iv diuresis, with 2 mg iv bumex, blood pressures have been soft but stable he continues on Entresto (hold for systolic below 90). UOP 4200, weight 246. LE edema is improved. increased skin wrinkling around ankles. continues on cxr for likely superimposed bacterial pna on LLL, dispo plan is for home with home health per pt request. will continue diuresis for 1-2 more days. Patient received p.o. dose of IV Bumex 2 mg 08/13/2025: Patient seen and examined while on telemetry. He reports feeling a lot more comfortable his legs are much smaller his breathing is a lot better he is speaking in full sentences. He received 2 mg of IV Bumex and plan to transition to p.o. Bumex 2 mg tomorrow. Urine output is 3900 08/14/2025: Patient seen and examined while in telemetry, He reports feeling a lot more comfortable his legs are much smaller his breathing is a lot better he is speaking in full sentences. Given 2 mg PO bumex today. holding entresto because BP was 80s systolic. pt reports that he would like to go to SNF, pending placement Exam Vital Signs Temp Pulse Resp BP Pulse Ox O2 Del Method O2 Flow Rate 96.8 F 74 17 97/36 L 99 Nasal Cannula 2 08/14/25 08:00 08/14/25 08:56 08/14/25 08:00 08/14/25 08:56 08/14/25 08:00 08/14/25 08:00 08/14/25 08:00 Narrative Exam GENERAL: no acute distress, AAO x3, sitting at 45 degrees in bed HEENT: Head AT/ NC. Mucous membranes moist. PERRL. poor dentition NECK: Supple, no lymphadenopathy, no carotid bruits. CARDIOVASCULAR: RRR. Normal S1/S2, systolic murmor, trace edema of bilateral LEs , RESPIRATORY:decreased breath sounds on L base GASTROINTESTINAL: obese, Abdomen soft, non tender no palpable masses. Bowel sounds present : scrotal edema is resolved, wrinkling on scrotum. MUSCULOSKELETAL:? No cyanosis or edema, no visible joint swelling. NEUROLOGICAL: CN II-XII grossly intact. No focal deficits. diminished sensation of BL feet, weak pedal pulses. PSYCHIATRIC: Awake and alert, not agitated, normal mood and affect. SKIN: ahsan stasis, L 2nd toe amputation, cool to touch, increased skin wrinkling around ankles and distal shins. Objective Labs 08/14/25 04:45 08/14/25 04:45 Labs: Laboratory Results - last 24 hr 08/14/25 04:45 WBC 6.1 RBC 4.76 Hgb 13.5 Hct 43.8 MCV 92 MCH 28.4 MCHC 30.8 L RDW Std Deviation 51.2 H Plt Count 192 Neut % (Auto) 71 Lymph % (Auto) 16 [place] % (Auto) 8 Eos % (Auto) 4 Baso % (Auto) 1 Neut # (Auto) 4.3 Lymph # (Auto) 1.0 [place] # (Auto) 0.5 Eos # (Auto) 0.2 Baso # (Auto) 0.1 Immature Gran # (Auto) 0.03 H Absolute Nucleated RBC 0.00 Immature Gran % 1 H Nucleated RBC % 0 Sodium 140 Potassium 4.4 D Chloride 100 Carbon Dioxide 30.9 Anion Gap 9 BUN 17 Creatinine 1.1 Estim Creat Clear Calc 86.3 eGFR > 60 BUN/Creatinine Ratio 15 Glucose 94 D Calculated Osmolality 280 Calcium 9.1 Corrected Calcium 9.5 Phosphorus 4.2 Magnesium 2.1 Total Bilirubin 0.8 AST 122 H ALT 62 H Alkaline Phosphatase 123 H Total Protein 6.3 Albumin 3.5 Globulin 2.8 Albumin/Globulin Ratio 1.3 Quality Measures Quality Measures VTE prophylaxis Assessment & Plan Assessment Current Active Medications: Generic Name Dose Route Start Last Admin Trade Name Freq PRN Reason Stop Dose Admin Acetaminophen 650 mg 08/06/25 15:21 08/13/25 16:45 Acetaminophen 325 Mg Tablet PO 09/05/25 15:20 650 mg Q6H PRN Administration PAIN SCALE 1-3 (mild Amiodarone HCl 200 mg 08/10/25 09:00 08/14/25 08:17 Amiodarone Hcl 200 Mg Tablet PO 09/09/25 08:59 200 mg DAILY CHYNA Administration Aspirin 81 mg 08/07/25 09:00 08/14/25 08:15 Aspirin Ec 81 Mg Tabec PO 09/06/25 08:59 81 mg QDAY CHYNA Administration Atorvastatin Calcium 80 mg 08/07/25 21:00 08/13/25 20:47 Atorvastatin Calcium 20 Mg Tablet PO 09/06/25 20:59 80 mg QPM CHYNA Administration Bumetanide 1 mg 08/15/25 09:00 Bumetanide 0.5 Mg Tablet PO 09/14/25 08:59 QDAY CHYNA Clopidogrel Bisulfate 75 mg 08/07/25 09:00 08/14/25 08:19 Clopidogrel Bisulfate 75 Mg Tablet PO 09/06/25 08:59 75 mg QDAY CHYNA Administration Docusate Sodium 100 mg 08/08/25 09:00 08/14/25 08:20 Docusate Sod 100 Mg Capsule PO 09/07/25 08:59 Not Given BID CHYNA Protocol Heparin Sodium (Porcine) 5,000 unit 08/06/25 21:00 08/14/25 08:20 Heparin Sod Inj 5000 Unit/Ml Vial SC 08/20/25 20:59 5,000 unit Q12HR CHYNA Administration Ceftriaxone Sodium/Dextrose 1 gm in 50 mls @ 100 mls/hr 08/11/25 12:09 08/14/25 08:23 Rocephin/D5w 1gm Iv Premix IV 08/18/25 12:08 100 mls/hr QDAY CHYNA Administration Lactulose 20 gm 08/07/25 09:00 08/14/25 08:20 Lactulose Syrup 20 Gm/30 Ml Udc PO 09/06/25 08:59 Not Given QDAY [facility] Protocol Ondansetron HCl 4 mg 08/06/25 15:21 Ondansetron Inj 2 Mg/Ml Inj 2 Ml IVP 09/05/25 15:20 Q6H PRN NAUSEA OR VOMITING Protocol Pantoprazole Sodium 40 mg 08/14/25 09:00 08/14/25 08:17 Pantoprazole 40 Mg Tablet PO 09/13/25 08:59 40 mg QDAY CHYNA Administration Sacubitril/Valsartan 1 tab 08/10/25 18:21 08/13/25 20:47 Sacubitril 24 Mg/Valsartan 26 Mg Tablet PO 09/06/25 08:59 1 tab On Hold: 08/14/25 05:32 BID CHYNA Administration Sennosides 1 tab 08/08/25 09:00 08/14/25 08:20 Senna Tablet PO 09/07/25 08:59 Not Given QDAY [facility] Protocol Tamsulosin HCl 0.4 mg 08/07/25 09:00 08/14/25 08:15 Tamsulosin Hcl 0.4 Mg Capsule PO 09/06/25 08:59 0.4 mg QDAY CHYNA Administration Plan Mr. King is a 65-year-old male with past medical history of heart failure with reduced ejection fraction, EF 20-25% 03/2025, combined systolic and diastolic heart failure, mild to moderate AV stenosis, benign prostate hypertrophy, ?Cirrhosis, hepatitis C infection, infrarenal abdominal aortic aneurysm, peripheral arterial disease status post iliac stent (on asa and plavix), hyperlipidemia and former cocaine use and chronic smoker with 30 pack years who presented to [facility] emergency department with a chief complaint of bilateral lower extremity edema up to scrotum, admitted for acute congestive heart failure exacerbation and PA. Continue with diuresis with PO bumex . cont on abx for L lobar pneumonia. #Acute CHF exacerbation with - resolved #HFrEF, EF 25-30% (08/2025) #NYHA class III Most likely that patient's recurrent acute CHF exacerbations are secondary to high sodium diet given his limited ability to ambulate he relies heavily on TV dinners. He is compliant with his diuretic medications but continues to have significant lower extremity edema. Patient follow with cardiology Dr. Mcclelland with last visit being earlier this month. Patient stated that recent dose change was made to Bumex from 1 mg p.o. to 2 mg p.o. daily. But since past couple of days he has been endorsing worsening shortness of breath difficulty walking short distances around his apartment. Complains of worsening swelling, coughing, shortness of breath. Volume Overload, BNP >3200, severe edema to the scrotum, and crackles on auscultation bilaterally. 230 Dry weight (pt states that he now weighs about 275) At home, patient is on GDMT of metoprolol XL 25 mg QD, Entresto 1 tablet BID, spironolactone 25 mg QD. EKG showed sinus rhythm HR 90 with QTC 474 with left axis deviation. - d/c IV Bumex 2 mg QD, goal of net 2-3L negative over 24h, CTM for contraction alkalosis and electrolyte abnormalities -PO Bumex 2 mg PO , plan to discharge with 1mg Bumex PO ( if gains >3 lbs instructed to take total of 2 mg bumex, if weight >5 lbs consult pcp) - If contraction alkalosis continues to worsen, hold Bumex and give acetazolamide 500 mg x1 - Continue Entresto 1 tab BID (hold if sbp<90)- held today given soft pressures this morning - Hold metoprolol and spironolactone iso soft BP and for anticipation of further diuresis - echocardiogram EF 25-30% Dilated Cardiomyopathy, Dilated LV, Severey systolic dysfunction. Severe global hypokinesis - Strict I&Os, daily weights - Low sodium diet, 1.5L fluid restriction - CTM renal panel - Keep K>4 and Mg>2 at all times - UOP 3100 cc - Dry weight 231.9 #CAP #Influenza positive CXR with c/f LLL pneumonia, pt has wet cough - start abx ceftriaxone (08/11- - plan to discharge to complete 5 day course of azithro 250 qd and amox clauvulante 875 BID . - Tamiflu 75 mg twice daily, (08/06-08/11) #Small L pleural effusion effusion noted on CXR, too small to do thora - cont diuresis. #PA 2/2 cardiorenal syndrome- resolved Cr on admission 1.6 with baseline of 0.8-1 likely 2/2 to cardiorenal syndrome with acute exacerbation and fluid overload. Cr 1.2 -maintenance fluids -avoid nephrotoxic agents -daily CMP #Infrarenal abdominal aortic aneurysm, 3.3 cm #PAD s/p bilateral iliac artery stents #Significant narrowing of L common iliac artery stent CTAP on 06/24/2025 shows infrarenal abdominal aorta 3.3 cm small blood and 11 mm off the lateral margin of the infrarenal aorta. With bilateral iliac artery stents, significant narrowing of the left common iliac artery stent and healthy calcification of the common femoral arteries. On exam pedal pulses 1+ with diminished light touch sensation on dorsal aspect of bilateral feet. MONICO (05/01/2025): Right ankle/Brachial index 1.1 and Left ankle/Brachial index 1.1 - Continue Plavix 75 mg QD and ASA 81 mg QD - Continue to follow up outpatient for further management #History of NSVT On previous admission on 06/24/2025, patient was noted to have 1 episode of NSVT on 06/30/2025 and was started on amiodarone drip and later transition to oral amiodarone 200 mg twice daily. Telemetry reviewed and no arrhythmias noted. - Continue PO amiodarone 200 mg QD - Telemetry for cardiac monitoring #HTN #HLD On admission, BP 129/87 HR 94. Lipid panel cholesterol 98, triglycerides 54, LDL 50, HDL 37. - Continue home atorvastatin 80 mg Qhs - Continue Entresto 1 tab BID (hold if bp<90) - Hold metoprolol and spironolactone as above, resume as BP tolerates #COPD Patient does use oxgyen at home. Denies exacerbation in some time. -breathing treatments as needed -cont pulse ox -cont diuresing BPH - cont tamsulosin 0.4 mg qd HLD - atorvastatin 80 qhs Chronic smoking history, 30 pack years Not an active smoker currently, history of 30 pack years, no lung nodules/lymphadenopathy noted on CTA - Outpatient screening including CT chest, AAA screening >65 Health maintenance: Dispo: tele, actue CHF exacerbation, diureses, PT therapy reccommends SNF pending placement, continues on abx for L pna FEN: cardic DVT prophylaxis: Subcu heparin CODE STATUS: Full code Plan discussed with Dr. Menchaca and Dr. Roel Dooley MD PGY1 Attending Provider Attestation/Addendum I have discussed and was present for the essential components of the history, physical examination, diagnosis, and treatment plan with the resident. I agree with the patient's care as documented by the resident and amended herein by me. Jorge Luis Sevilla DO. Although this document has been carefully reviewed, there may still be some phonetic and other typographical errors. These errors are purely grammatical due to imperfections in the software program and should not be construed in any way to compromise the substance of the patient's medical care during this visit. Patient seen and evaluated this AM. No acute events overnight, I/O 1140/3100 mL. Bicarb 30, creatinine 1.1. Patient significantly improved clinically, he feels well, patient net negative and impressive 26 L this visit. I feel the patient can be discharged today with oral diuretics however pending cardiology recommendations and SNF authorization. We did review with the patient lifestyle modifications to include daily weights, fluid restrictions etc. however will include with his discharge instructions as he is concerned that he will become edematous again. The patient does wish to go to SNF, authorization is pending, if we do not get authorization, we will send the patient home with home health. Will continue Entresto, amiodarone, aspirin, Plavix, statin and we will switch his antibiotic to an oral formulation for pneumonia to complete a total 5-day course. Will continue to monitor closely while he is here.
[2025-08-14] MEDS: ATORVASTATIN CALCIUM 20 MG TABLET 80 MG PO (20:34)
--- NOTE | 2025-08-14 20:35 | PC.NURSE ---
MADE DR. MAGALLON AWARE OF BP OF 93/52, MAP OF 65. AWARE THAT BUMEX PO WAS RESUMED TODAY. ENTRESTO STILL ON HOLD. PT ASYMPTOMATIC. NO ORDERS AT THIS TIME.
[2025-08-15] VITALS (10 sets, daily range): BP systolic 97–107; BP diastolic 62–70; PULSE 70–84; RESP 14–96; TEMP 36.1–36.2; O2SAT 94–98; BMI 30.7; BMI 14.0
[2025-08-15 05:11] LABS: Basophils # (Auto) 0.1 Thou/mm3 (0.0-0.2); Basophils % (Auto) 1 % (0-2.5); Eosinophils # (Auto) 0.2 Thou/mm3 (0.0-0.5); Eosinophils % (Auto) 3 % (0-10); Hematocrit 42.2 % (41.0-53.0); Hemoglobin 13.4 g/dL (13.5-16.0); Immature Granulocytes Auto 0.03 Thou/mm3 (0.00-0.00); Lymphocytes # (Auto) 1.0 Thou/mm3 (1.0-4.8); Lymphocytes % (Auto) 15 % (10-50); Mean Corpuscular HGB Conc 31.8 g/dl (31.0-37.0); Mean Corpuscular Hemoglobin 28.9 pg (25.0-35.0); Mean Corpuscular Volume 91 fL (80-100); Monocytes # (Auto) 0.6 Thou/mm3 (0.0-0.8); Monocytes % (Auto) 9 % (0-12); Neutrophils # (Auto) 4.8 Thou/mm3 (1.8-7.7); Neutrophils % (Auto) 72 % (37-80); Nucleated Red Blood Cell # 0.00 Thou/mm3 (0.00-0.00); Nucleated Red Blood Cell % 0 /100 WBC (0); Platelet Count 172 Thou/mm3 (140-440); RDW Standard Deviation 50.0 fL (35.1-43.9); Red Blood Count 4.64 Miln/mm3 (4.50-5.90); White Blood Count 6.8 Thou/mm3 (3.8-10.6)
[2025-08-15 05:34] LABS: Alanine Aminotransferase 76 U/L (10-49); Albumin, Serum 3.6 gm/dL (3.4-4.8); Albumin/Globulin Ratio 1.2 (1.2-2.2); Alkaline Phosphatase 125 U/L (46-116); Anion Gap 9 (7-16); Aspartate Amino Transferase 143 U/L (0-34); BUN/Creatinine Ratio 12 Ratio (12-20); Bilirubin,Total 0.8 mg/dL (0.3-1.2); Blood Urea Nitrogen 14 mg/dL (9-23); Calcium 9.2 mg/dL (8.3-10.6); Calcium (Corrected) 9.5 mg/dL (8.5-10.1); Carbon Dioxide 29.2 mMol/L (20.0-31.0); Chloride 100 mMol/L (98-107); Creatinine (Component) 1.2 mg/dL (0.6-1.3); Estimated Creatinine Clearance 78.0 mL/min (>60); Globulin 2.9 gm/dL (2.3-3.5); Glucose 98 mg/dL (74-106); Magnesium 2.2 mg/dL (1.6-2.6); Osmolality,Calculated 276 (275-295); Phosphorous 4.5 mg/dL (2.4-5.1); Potassium 4.4 mMol/L (3.4-5.1); Sodium 138 mMol/L (136-145); Total Protein 6.5 gm/dL (5.7-8.2); eGFR > 60 See Note
[2025-08-15] MEDS: LACTULOSE SYRUP 20 GM/30 ML UDC PO (08:41)
[2025-08-15] MEDS: DOCUSATE SOD 100 MG CAPSULE PO (08:41)
[2025-08-15] MEDS: HEPARIN SOD INJ 5000 UNIT/ML VIAL SC (08:42)
[2025-08-15] MEDS: cefTRIAXone/D5w 1gm IV premix 1 GM/50 ML BAG IV (08:42)
[2025-08-15] MEDS: TAMSULOSIN HCL 0.4 MG CAPSULE PO (08:42)
[2025-08-15] MEDS: CLOPIDOGREL BISULFATE 75 MG TABLET PO (08:42)
[2025-08-15] MEDS: AMIODARONE HCL 200 MG TABLET PO (08:42)
[2025-08-15] MEDS: ASPIRIN EC 81 MG TABEC PO (08:42)
[2025-08-15] MEDS: BUMETANIDE 0.5 MG TABLET 1 MG PO (08:43)
[2025-08-15] MEDS: PANTOPRAZOLE 40 MG TABLET PO (08:52)
[2025-08-15 08:58] LABS: B-Type Natriuretic Peptide 850 pg/mL (0-100)
--- NOTE | 2025-08-15 09:50 | PC.SS ---
Addendum entered by Bing Moreno 08/15/25 11:16: SS sent TAMIFLU documentation and vitals for the last 24hrs to [facility], via [employer] Original Note: SS reached out to Lurdes at [facility] who previously was the pt DC plan, Per Lurdes she still has auth for pt to DC to [facility]. SS met with pt at bedside and informed him of information. Pt is agreeable to DC to [facility]. SS updated Lurdes of plan and pt being ready today per Team.
--- NOTE | 2025-08-15 12:04 | PC.SS ---
Addendum entered by Bing Moreno 08/15/25 14:32: ETA set with [facility] for 1600, HUAN Hutton made aware Original Note: SS set up transport with [facility] #[id number] going to [facility]. SS set time for 1600. SS attempted to update Anni PRESSLEY at ext [phone] no answer x2. SS updated Radha BEGUM.
--- NOTE | 2025-08-15 16:33 | PD.RESPRO ---
Documentation for date of: 08/15/25 Subjective Subjective Interval history: Patient seen and examined at bedside. Telemetry reviewed, sinus rhythm rate 60s and 70s. Vitals and labs reviewed. BP Soft ranges 90s to low 100s over 50s to 60s. Net negative 24-hour output -0.9 L total output 2.1. Patient saturating well at 90% on room air. Patient is feeling well, ready to go home. Denies chest pain, chest pressure, lightheadedness, dizziness, shortness of breath or palpitations. Reports leg swelling and scrotal swelling have completely resolved. Potassium 4.4. Creatinine 1.2, E-Z-EM 2.2. Exam Vital Signs Temp Pulse Resp BP Pulse Ox O2 Del Method O2 Flow Rate 96.9 F 80 18 97/62 96 Room Air 2 08/15/25 12:00 08/15/25 16:00 08/15/25 12:00 08/15/25 12:00 08/15/25 12:00 08/15/25 12:00 08/15/25 04:00 Narrative Exam GENERAL: AOx3, semisitting position, breathing room air HEENT: NC/AT, mucous membranes moist, bilateral sclera anicteric CARDIOVASCULAR: regular rate and rhythm, S1/S2 present, 4/6 harsh systolic murmur PULMONARY: Good air entry bilaterally, no added sounds. 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 NEURO: CN II-XII grossly intact, no focal deficits, alert, following commands Objective Labs 08/15/25 05:02 08/15/25 05:02 Labs: Laboratory Results - last 24 hr 08/15/25 05:02 WBC 6.8 RBC 4.64 Hgb 13.4 L Hct 42.2 MCV 91 MCH 28.9 MCHC 31.8 RDW Std Deviation 50.0 H Plt Count 172 Neut % (Auto) 72 Lymph % (Auto) 15 Dewitt % (Auto) 9 Eos % (Auto) 3 Baso % (Auto) 1 Neut # (Auto) 4.8 Lymph # (Auto) 1.0 Dewitt # (Auto) 0.6 Eos # (Auto) 0.2 Baso # (Auto) 0.1 Immature Gran # (Auto) 0.03 H Absolute Nucleated RBC 0.00 Immature Gran % 0 Nucleated RBC % 0 Sodium 138 Potassium 4.4 Chloride 100 Carbon Dioxide 29.2 Anion Gap 9 BUN 14 Creatinine 1.2 Estim Creat Clear Calc 78.0 eGFR > 60 BUN/Creatinine Ratio 12 Glucose 98 Calculated Osmolality 276 Calcium 9.2 Corrected Calcium 9.5 Phosphorus 4.5 Magnesium 2.2 Total Bilirubin 0.8 AST 143 H ALT 76 H Alkaline Phosphatase 125 H B-Natriuretic Peptide 850 H* Total Protein 6.5 Albumin 3.6 Globulin 2.9 Albumin/Globulin Ratio 1.2 Quality Measures Quality Measures VTE prophylaxis Assessment & Plan Assessment Current Active Medications: Generic Name Dose Route Start Last Admin Trade Name Freq PRN Reason Stop Dose Admin Acetaminophen 650 mg 08/06/25 15:21 08/13/25 16:45 Acetaminophen 325 Mg Tablet PO 09/05/25 15:20 650 mg Q6H PRN Administration PAIN SCALE 1-3 (mild Amiodarone HCl 200 mg 08/10/25 09:00 08/15/25 08:42 Amiodarone Hcl 200 Mg Tablet PO 09/09/25 08:59 200 mg DAILY CHYNA Administration Aspirin 81 mg 08/07/25 09:00 08/15/25 08:42 Aspirin Ec 81 Mg Tabec PO 09/06/25 08:59 81 mg QDAY CHYNA Administration Atorvastatin Calcium 80 mg 08/07/25 21:00 08/14/25 20:34 Atorvastatin Calcium 20 Mg Tablet PO 09/06/25 20:59 80 mg QPM CHYNA Administration Bumetanide 2 mg 08/16/25 09:00 Bumetanide 0.5 Mg Tablet PO 09/15/25 08:59 QDAY CHYNA Clopidogrel Bisulfate 75 mg 08/07/25 09:00 08/15/25 08:42 Clopidogrel Bisulfate 75 Mg Tablet PO 09/06/25 08:59 75 mg QDAY CHYNA Administration Docusate Sodium 100 mg 08/08/25 09:00 08/15/25 08:41 Docusate Sod 100 Mg Capsule PO 09/07/25 08:59 100 mg BID CHYNA Administration Protocol Heparin Sodium (Porcine) 5,000 unit 08/06/25 21:00 08/15/25 08:42 Heparin Sod Inj 5000 Unit/Ml Vial SC 08/20/25 20:59 5,000 unit Q12HR CHYNA Administration Lactulose 20 gm 08/07/25 09:00 08/15/25 08:41 Lactulose Syrup 20 Gm/30 Ml Udc PO 09/06/25 08:59 20 gm QDAY CHYNA Administration Protocol Ondansetron HCl 4 mg 08/06/25 15:21 Ondansetron Inj 2 Mg/Ml Inj 2 Ml IVP 09/05/25 15:20 Q6H PRN NAUSEA OR VOMITING Protocol Pantoprazole Sodium 40 mg 08/14/25 09:00 08/15/25 08:52 Pantoprazole 40 Mg Tablet PO 09/13/25 08:59 40 mg QDAY CHYNA Administration Sacubitril/Valsartan 1 tab 08/10/25 18:21 08/15/25 08:41 Sacubitril 24 Mg/Valsartan 26 Mg Tablet PO 09/06/25 08:59 1 tab On Hold: 08/15/25 09:18 BID CHYNA Administration Sennosides 1 tab 08/08/25 09:00 08/15/25 08:42 Senna Tablet PO 09/07/25 08:59 1 tab QDAY CHYNA Administration Protocol Tamsulosin HCl 0.4 mg 08/07/25 09:00 08/15/25 08:42 Tamsulosin Hcl 0.4 Mg Capsule PO 09/06/25 08:59 0.4 mg QDAY CHYNA Administration Plan [place] 65M pmhx significant for HFrEF (20-25% 03/2025), low-flow moderate AV stenosis, HTN, HLD, infrarenal abdominal aortic aneurysm, PAD s/p iliac stent, former cocaine use, chronic smoker, BPH, cirrhosis and Hepatitis C infection who presents with worsening BLE edema, admitted for acute on chronic heart failure. Cardiology consulted for further management. #Acute on chronic HFrEF, EF 20-25% 03/2025, NYHA Class III #PA 2/2 cardiorenal syndrome #Combined systolic and diastolic heart failure #Low Flow Moderate AV stenosis Patient presented with worsening bilateral lower extremity edema, recently saw hand paint mixer and Bumex was increased to 2 mg daily from 1 mg daily. However swelling persisted and worsened with associated worsening dyspnea on exertion and SOB while speaking prompting current hospitalization. Admission BNP >3820 with negative troponins. At home, patient is on GDMT of metoprolol XL 25 mg QD, Entresto 1 tablet BID, spironolactone 25 mg QD. Patient admits to not taking medication consistently. EKG showed sinus rhythm HR 90 with QTC 474 with left axis deviation. Cr on admission 1.6 with baseline of 0.8-1 likely 2/2 to cardiorenal syndrome with acute exacerbation and fluid overload. 03/2025 Echo showed dilated cardiomyopathy, dilated LV, severe systolic expression, severe global hypokinesis, estimated EF 20 to 30%, grade 2 diastolic dysfunction, mild RV dilatation, mild RV systolic dysfunction, mild to moderate AV stenosis, low gradient due to low EF, mean PG 12-14 mmHg but JE around 1.1 to 1.2 cm? which indicates at least moderate stenosis, mild MAC, mild MR and TR, trace AI, mildly dilated LA volume at 40.5 mL/m?. 08/2025 Echo showed dilated cardiomyopathy, dilated LV, severe systolic function, severe global hypokinesis, estimated EF 25 to 30%. Grade 2 diastolic dysfunction. Mild RV dilatation, mild RV systolic dysfunction, mild to moderate AV stenosis low gradient due to low EF, mean PG 12 to 14 mmHg by JE around 1.1 to 1.2 cm? which indicates at least moderate stenosis, mild MAC mild TR mild TR, trace AI and PI, mild dilated LA volume 52.2 mL/m?. No significant change from previous echo 03/15/2025 08/14/2025 Patient fluid balance since admission is -26 L. Blood pressure noted to be in the soft side over the past 24 hours, lowest blood pressure was 83/54. Plan: - Continue Bumex IV 2 mg once daily while patient is inpatient as the weight is still up to 108 kg and his dry weight is 102 kg. - Restart Entresto at the time of discharge - Bumex 2 mg p.o. daily at discharge. If patient going to be discharged please record his dry weight 102KG on discharge. Instruct the patient to do daily body weight and increase the dose of Bumex by 1 dose of his body weight increase by 3 pounds. If it goes above 5 pounds increase he has to contact Dr. Mcclelland office and follow up. ? Follow-up in outpatient setting within 1 week of discharge to start the patient on GDMT after he reach to the dry weight. - Plan to reassess EF following 3 months of GDMT - Extensively discussed adherence to medication regimen - Hold metoprolol and spironolactone iso soft BP and for anticipation of further diuresis - Strict I&Os, daily weights - Low sodium diet, 1.5L fluid restriction - CTM renal panel - Keep K>4 and Mg>2 at all times - Follow up outpatient with Dr. Mcclelland within 1-2 weeks of discharge #Infrarenal abdominal aortic aneurysm, 3.3 cm #PAD s/p bilateral iliac artery stents #Significant narrowing of L common iliac artery stent CTAP on 06/24/2025 shows infrarenal abdominal aorta 3.3 cm small blood and 11 mm off the lateral margin of the infrarenal aorta. With bilateral iliac artery stents, significant narrowing of the left common iliac artery stent and healthy calcification of the common femoral arteries. On exam pedal pulses 1+ with diminished light touch sensation on dorsal aspect of bilateral feet. MONICO (05/01/2025): Right ankle/Brachial index 1.1 and Left ankle/Brachial index 1.1 Plan: - Continue Plavix 75 mg QD and ASA 81 mg QD - Continue to follow up outpatient for further management #History of NSVT On previous admission on 06/24/2025, patient was noted to have 1 episode of NSVT on 06/30/2025 and was started on amiodarone drip and later transition to oral amiodarone 200 mg twice daily. Telemetry reviewed and no arrhythmias noted. Plan: - Continue PO amiodarone 200 mg QD - Telemetry for cardiac monitoring #HTN #HLD On admission, BP 129/87 HR 94. Lipid panel cholesterol 98, triglycerides 54, LDL 50, HDL 37. Plan: - Continue home atorvastatin 80 mg Qhs - Continue Entresto 1 tab BID - Hold metoprolol and spironolactone as above, resume as BP tolerates #LLL PNA #L pleural fluid #Chronic smoking history, 30 pack years #Cirrhosis #Benign prostate hypertrophy #Normocytic normochromic anemia #Hepatitis C #COPD Plan: - Management per primary team Thank you for the consultation and allowing us to participate in patient's care. Plan of care discussed with attending Dr. Mcclelland, diving supervisor Leandra Moss, DO PGY-1 Internal Medicine Attending Provider Attestation/Addendum I have personally seen and examined the patient separately on the above date of service and discussed the plan of care with the resident. I reviewed the resident Dr.Emily Moss consultation progress note and agree with the resident findings and plan in the note above and have also edited the documentation to reflect my findings and plan. Ernie Mcclelland M.D. Interventional Cardiology
--- NOTE | 2025-08-15 16:45 | PC.SS ---
Ambulance transport re-scheduled for 18:00 today. COLLET MAKING MACHINE OPERATOR notified patient and bedside nurse.
== END 2025-08-15 17:20 | disposition skilled nursing facility (03) | DRG 194 ==
LOC: SERX 08:30 → SERHOLD 11:15 → S2NX 18:19
PROVIDERS: Student in an Organized Health Care Education/Training Program; Admitting Provider Student in an Organized Health Care Education/Training Program; Emergency Provider Emergency Medicine; PCP Family Medicine; Visit Provider Internal Medicine
DX: I11.0 Hypertensive heart disease with heart failure (principal); I50.43 Acute on chronic combined systolic (congestive) and diastolic (congestive) heart failure; N40.0 Benign prostatic hyperplasia without lower urinary tract symptoms; J44.0 Chronic obstructive pulmonary disease with (acute) lower respiratory infection; J18.9 Pneumonia, unspecified organism; E78.5 Hyperlipidemia, unspecified; N17.9 Acute kidney failure, unspecified; I71.43 Infrarenal abdominal aortic aneurysm, without rupture; I73.9 Peripheral vascular disease, unspecified; K74.60 Unspecified cirrhosis of liver; B19.20 Unspecified viral hepatitis C without hepatic coma; J11.1 Influenza due to unidentified influenza virus with other respiratory manifestations; N50.89 Other specified disorders of the male genital organs; I42.0 Dilated cardiomyopathy; Z87.891 Personal history of nicotine dependence; Z79.02 Long term (current) use of antithrombotics/antiplatelets; Z79.82 Long term (current) use of aspirin; Z79.899 Other long term (current) drug therapy; Z95.810 Presence of automatic (implantable) cardiac defibrillator
CPT/HCPCS: 36415; 71045; 80053; 80061; 80307; 81001; 82140; 83735; 83880; 84100; 84484; 85025; 85610; 85730; 87081; 87400; 87502; 87811; 93005; 93306; 94762; 96372; 96374; 96376; 97162; 99285; J0696; J1644; J3490; A9270